=== PATIENT | male | born 1960 | race Caucasian/White ===

== ENCOUNTER → 2016-07-28 | Outpatient (CLI) | payer MEDICARE, OTHER ==
[2016-07-28 08:54] LABS: CH 30.7; CHCM 32.8; HCT 37.5 % (39.0-53.0); HDW 2.68; HGB 12.3 gm/dL (13.0-17.5); MCH 30.9 pg (25.0-35.0); MCHC 32.7 g/dL (31.0-37.0); MCV 94.3 fL (80.0-100.0); Mean Platelet Volume 7.4; RBC 3.98 m/uL (4.30-5.90); RDW 15.3 % (11.5-15.5); WBC 13.6 k/uL (3.8-10.6)
[2016-07-28 09:14] LABS: Amylase 74 U/L (30-110); Anion Gap 9 mmol/L; Blood Urea Nitrogen 26 mg/dL (9-20); Calcium 9.4 mg/dL (8.4-10.2); Carbon Dioxide 25 mmol/L (22-30); Chloride 110 mmol/L (98-107); Glucose 97 mg/dL (74-99); Non-African American GFR(MDRD) >60 (>60 ml/min/1.73 sqM); Potassium 4.7 mmol/L (3.5-5.1); Sodium 144 mmol/L (137-145)
[2016-07-28 13:08] LABS: Hemoglobin A1C 5.6 % (4.2-6.1)
== END ==
LOC: LABWHC1 08:19
PROVIDERS: ATTEND Physical Medicine & Rehabilitation
DX: E10.9 Type 1 diabetes mellitus without complications (principal); Z51.81 Encounter for therapeutic drug level monitoring; Z94.0 Kidney transplant status; Z94.83 Pancreas transplant status; Z79.899 Other long term (current) drug therapy; Z48.298 Encounter for aftercare following other organ transplant
CPT/HCPCS: 36415; 80048; 80197; 82150; 83036; 83690; 85027

== ENCOUNTER → 2016-09-21 | Outpatient (CLI) | payer MEDICARE, OTHER ==
[2016-09-21 10:26] LABS: Aty Lym Flag Slight; CH 30.9; CHCM 32.2; HCT 40.2 % (39.0-53.0); HDW 2.41; MCH 31.2 pg (25.0-35.0); MCHC 32.3 g/dL (31.0-37.0); MCV 96.5 fL (80.0-100.0); Mean Platelet Volume 6.9; RBC 4.16 m/uL (4.30-5.90); RDW 15.1 % (11.5-15.5); WBC 10.3 k/uL (3.8-10.6); WBC (Perox) 10.57
[2016-09-21 10:43] LABS: Appearance,Urine Clear (Clear); Bilirubin,Urine Negative (Negative); Glucose,Urine (UA) Negative (Negative); Ketones,Urine Negative (Negative); Leukocyte Esterase,Urine Negative (Negative); Nitrite,Urine Negative (Negative); PH, Urine 5.5 (5.0-8.0); Protein,Urine Negative (Negative); Specific Gravity,Urine 1.014 (1.001-1.035); UA Billing (MACRO vs. MICRO) CHEM; Urobilinogen,Urine <2.0 mg/dL (<2.0)
[2016-09-21 11:56] LABS: ALT 26 U/L (21-72); AST 22 U/L (17-59); Alkaline Phosphatase 58 U/L (38-126); Amylase 79 U/L (30-110); Anion Gap 10 mmol/L; Blood Urea Nitrogen 28 mg/dL (9-20); Calcium 9.4 mg/dL (8.4-10.2); Carbon Dioxide 22 mmol/L (22-30); Chloride 110 mmol/L (98-107); Cholesterol 140 mg/dL (<200); GGT 20 U/L (15-73); Glucose 96 mg/dL (74-99); HDL Cholesterol 64 mg/dL (40-60); Iron 129 ug/dL (49-181); Magnesium 2.1 mg/dL (1.6-2.3); Non-African American GFR(MDRD) >60 (>60 ml/min/1.73 sqM); Phosphorous 3.4 mg/dL (2.5-4.5); Potassium 4.6 mmol/L (3.5-5.1); Sodium 142 mmol/L (137-145); Total Bilirubin 0.6 mg/dL (0.2-1.3); Total Protein 6.4 g/dL (6.3-8.2); Triglycerides 106 mg/dL (<150); Uric Acid 7.5 mg/dL (3.5-8.5)
[2016-09-21 12:01] LABS: Hemoglobin A1C 5.5 % (4.2-6.1)
[2016-09-21 12:06] LABS: % Iron Saturation 45.3 % (20-50); Total Iron Binding Capacity 285 ug/dL (261-462)
[2016-09-21 12:28] LABS: Creatinine,Urine Random 150.5 mg/dL
[2016-09-21 13:34] LABS: Add Differential Manual Differential
[2016-09-21 13:37] LABS: Manual Review Performed; Nucleated Red Blood Cells 0 /100 WBC (0-0); Total Cells Counted 100
[2016-10-03 16:05] LABS: Mis test requested (Blood) BKV QUANT BY PCR
== END | disposition home or self-care (01) ==
LOC: LABWHC1 08:03
PROVIDERS: ATTEND Nurse Practitioner Family
DX: E10.22 Type 1 diabetes mellitus with diabetic chronic kidney disease (principal); N18.2 Chronic kidney disease, stage 2 (mild); D64.9 Anemia, unspecified; E55.9 Vitamin D deficiency, unspecified; E21.3 Hyperparathyroidism, unspecified; M10.9 Gout, unspecified; N39.0 Urinary tract infection, site not specified; M81.0 Age-related osteoporosis without current pathological fracture; E78.5 Hyperlipidemia, unspecified; Z94.0 Kidney transplant status; Z13.89 Encounter for screening for other disorder; Z79.899 Other long term (current) drug therapy; Z48.298 Encounter for aftercare following other organ transplant
CPT/HCPCS: 36415; 80053; 80061; 80197; 81003; 82150; 82306; 82570; 82728; 82977; 83036; 83540; 83550; 83690; 83735; 83970; 84100; 84156; 84550; 84681; 85025; 87799

== ENCOUNTER → 2017-02-21 | Outpatient (CLI) | payer MEDICARE, OTHER ==
[2017-02-21 08:33] LABS: Anion Gap 9 mmol/L; Blood Urea Nitrogen 28 mg/dL (9-20); Calcium 9.2 mg/dL (8.4-10.2); Carbon Dioxide 25 mmol/L (22-30); Chloride 109 mmol/L (98-107); Glucose 103 mg/dL (74-99); Non-African American GFR(MDRD) 55 (>60 ml/min/1.73 sqM); Phosphorous 3.7 mg/dL (2.5-4.5); Potassium 5.1 mmol/L (3.5-5.1); Sodium 143 mmol/L (137-145); Uric Acid 7.7 mg/dL (3.5-8.5)
[2017-02-21 08:37] LABS: Appearance,Urine Clear (Clear); Bilirubin,Urine Negative (Negative); Glucose,Urine (UA) Negative (Negative); Ketones,Urine Negative (Negative); Leukocyte Esterase,Urine Negative (Negative); Nitrite,Urine Negative (Negative); PH, Urine 5.5 (5.0-8.0); Protein,Urine Negative (Negative); Specific Gravity,Urine 1.015 (1.001-1.035); UA Billing (MACRO vs. MICRO) CHEM; Urobilinogen,Urine <2.0 mg/dL (<2.0)
[2017-02-21 10:06] LABS: Anisocytosis Slight; Aty Lym Flag Slight; CH 31.9; CHCM 32.3; HDW 2.46; HGB 12.9 gm/dL (13.0-17.5); MCH 29.9 pg (25.0-35.0); MCV 99.8 fL (80.0-100.0); Macrocytosis Slight; Mean Platelet Volume 7.2; RBC 4.31 m/uL (4.30-5.90); RDW 16.1 % (11.5-15.5); WBC 12.3 k/uL (3.8-10.6); WBC (Perox) 11.97
[2017-02-21 10:30] LABS: Add Differential Manual Differential
[2017-02-21 10:31] LABS: Nucleated Red Blood Cells 0 /100 WBC (0-0); Total Cells Counted 100
[2017-02-21 10:32] LABS: Manual Review Performed
[2017-02-21 15:12] LABS: Iron Saturation 18.11 (15.00-50.00)
== END | disposition home or self-care (01) ==
LOC: LABWHC1 07:52
PROVIDERS: ATTEND Nurse Practitioner Family
DX: D64.9 Anemia, unspecified (principal); N18.2 Chronic kidney disease, stage 2 (mild); E55.9 Vitamin D deficiency, unspecified; E21.3 Hyperparathyroidism, unspecified; M10.9 Gout, unspecified; N39.0 Urinary tract infection, site not specified
CPT/HCPCS: 36415; 80048; 80197; 81003; 82306; 82728; 83540; 83550; 83735; 83970; 84100; 84550; 85025

== ENCOUNTER → 2017-03-10 | Outpatient (CLI) | payer MEDICARE, OTHER ==
--- NOTE | 2017-03-10 16:52 | US ---
EXAMINATION TYPE: US renal transplant w dop DATE OF EXAM: 03/10/2017 COMPARISON: NONE CLINICAL HISTORY: N18.2 Chronic kidney disease stage 2. CKD stage 2, kidney transplant 20 years ago EXAM PERFORMED: Grayscale on ely [place] kidneys and Doppler duplex and Grayscale imaging of the transplan geraldine kidney. EXAM MEASUREMENTS: Jackson Right Kidney: 8.3 x 4.3 x 3.2cm Jackson Left Kidney: 8.4 x 4.4 x 3.9cm Transplant Kidney: 12.4 x 5.1 x 5.5cm Location of transplanted kidney: LLQ ANATOMY: Jackson Right Kidney: atrophic, echogenic Jackson Left Kidney: atrophic, echogenic Transplant Kidney: cystic areas seen, largest at lower pole = 4.2 x 3.6 x 4.3cm. Located within LLQ. Venous and arterial flow documented Bladder: not fully distended, wall = 0.7cm Bilateral Jets seen: yes Urinary bladder is sonolucent. IMPRESSION: 1. Transplant kidney appears unremarkable by ultrasound. Simple appearing cysts are present. 2. Jackson kidneys remain present typical findings of cortical atrophy.
== END | disposition home or self-care (01) ==
LOC: RADUSWWP 08:19
PROVIDERS: ATTEND Internal Medicine Nephrology
DX: N28.1 Cyst of kidney, acquired (principal); N26.1 Atrophy of kidney (terminal); N18.2 Chronic kidney disease, stage 2 (mild); Z94.0 Kidney transplant status
CPT/HCPCS: 76776

== ENCOUNTER → 2017-05-29 | Outpatient (CLI) | payer MEDICARE, OTHER ==
[2017-05-29 09:14] LABS: HCT 41.1 % (39.0-53.0); MCH 29.7 pg (25.0-35.0); MCHC 31.6 g/dL (31.0-37.0); Mean Platelet Volume 6.7; Platelet Count 380 k/uL (150-450); RBC 4.37 m/uL (4.30-5.90); WBC 11.5 k/uL (3.8-10.6)
[2017-05-29 09:45] LABS: ALT 21 U/L (21-72); AST 25 U/L (17-59); Albumin 3.9 g/dL (3.5-5.0); Alkaline Phosphatase 68 U/L (38-126); Anion Gap 7 mmol/L; Blood Urea Nitrogen 27 mg/dL (9-20); Calcium 9.7 mg/dL (8.4-10.2); Carbon Dioxide 27 mmol/L (22-30); Chloride 107 mmol/L (98-107); Cholesterol 137 mg/dL (<200); Glucose 100 mg/dL (74-99); HDL Cholesterol 60 mg/dL (40-60); LDL Cholesterol,Calculated 57 mg/dL (0-99); Potassium 5.1 mmol/L (3.5-5.1); Sodium 141 mmol/L (137-145); Total Bilirubin 0.5 mg/dL (0.2-1.3); Total Protein 6.6 g/dL (6.3-8.2); Triglycerides 99 mg/dL (<150)
[2017-05-29 10:14] LABS: PSA Annual Screen 0.29 ng/mL (0.00-4.00)
[2017-05-29 10:48] LABS: Eosinophils # (M) 0.23 k/uL (0-0.7); Monocytes # (M) 0.35 k/uL (0-1.0); Neutrophils # (M) 8.63 k/uL (1.3-7.7); Neutrophils % (M) 75 %; Nucleated Red Blood Cells 0 /100 WBC (0-0); Total Cells Counted 100
[2017-05-29 10:49] LABS: Anisocytosis (M) Present; Poikilocytosis (M) Present
== END | disposition home or self-care (01) ==
LOC: LABWHC1 08:17
PROVIDERS: ATTEND Internal Medicine
DX: I10 Essential (primary) hypertension (principal); E78.5 Hyperlipidemia, unspecified; Z12.5 Encounter for screening for malignant neoplasm of prostate
CPT/HCPCS: 80061; 80053; 85025; 36415; G0103

== ENCOUNTER → 2017-06-20 | Outpatient (CLI) | payer MEDICARE, OTHER ==
[2017-06-20 09:12] LABS: Appearance,Urine Clear (Clear); Bilirubin,Urine Negative (Negative); Blood,Urine Negative (Negative); Color,Urine Yellow; Glucose,Urine (UA) Negative (Negative); Ketones,Urine Negative (Negative); Leukocyte Esterase,Urine Negative (Negative); Nitrite,Urine Negative (Negative); Protein,Urine Negative (Negative); Specific Gravity,Urine 1.014 (1.001-1.035); Urobilinogen,Urine <2.0 mg/dL (<2.0)
[2017-06-20 09:15] LABS: HCT 42.6 % (39.0-53.0); HGB 13.3 gm/dL (13.0-17.5); MCH 29.3 pg (25.0-35.0); MCHC 31.2 g/dL (31.0-37.0); MCV 93.7 fL (80.0-100.0); Mean Platelet Volume 6.9; Platelet Count 376 k/uL (150-450); RBC 4.55 m/uL (4.30-5.90)
[2017-06-20 09:24] LABS: Anion Gap 10 mmol/L; Blood Urea Nitrogen 26 mg/dL (9-20); Calcium 9.4 mg/dL (8.4-10.2); Carbon Dioxide 25 mmol/L (22-30); Chloride 106 mmol/L (98-107); Glucose 94 mg/dL (74-99); Magnesium 1.9 mg/dL (1.6-2.3); Phosphorus 3.9 mg/dL (2.5-4.5); Sodium 141 mmol/L (137-145); Uric Acid 6.5 mg/dL (3.5-8.5)
[2017-06-20 10:51] LABS: Band Neutrophils % 1 %; Eosinophils # (M) 0.52 k/uL (0-0.7); Lymphocytes # (M) 3.64 k/uL (1.0-4.8); Monocytes # (M) 0.65 k/uL (0-1.0); Neutrophils % (M) 62 %; Nucleated Red Blood Cells 0 /100 WBC (0-0); Total Cells Counted 100
[2017-06-20 10:52] LABS: Anisocytosis (M) Present; Poikilocytosis (M) Present
[2017-06-20 17:04] LABS: Iron Saturation 23.43 (15.00-50.00)
[2017-06-20 20:05] LABS: Parathyroid Hormone Intact 71.1 pg/mL (14.0-72.0)
== END | disposition home or self-care (01) ==
LOC: LABWHC1 07:58
PROVIDERS: ATTEND Nurse Practitioner Family
DX: E55.9 Vitamin D deficiency, unspecified (principal); D50.9 Iron deficiency anemia, unspecified; N25.81 Secondary hyperparathyroidism of renal origin; M10.9 Gout, unspecified; N39.0 Urinary tract infection, site not specified; D63.1 Anemia in chronic kidney disease; N18.2 Chronic kidney disease, stage 2 (mild); Z94.0 Kidney transplant status
CPT/HCPCS: 36415; 80048; 80197; 81003; 82306; 82728; 83540; 83550; 83735; 83970; 84100; 84550; 85025

== ENCOUNTER → 2017-07-07 | Outpatient (CLI) | payer MEDICARE, OTHER | END | disposition home or self-care (01) | LOC: LABWHC1 08:09 | PROVIDERS: ATTEND Internal Medicine Nephrology | DX: Z48.816 Encounter for surgical aftercare following surgery on the genitourinary system (principal); Z94.0 Kidney transplant status | CPT/HCPCS: 36415; 80197 ==

== ENCOUNTER → 2017-07-14 | Outpatient (CLI) | payer MEDICARE, OTHER | END | disposition home or self-care (01) | LOC: LABWHC1 08:10 | PROVIDERS: ATTEND Internal Medicine Nephrology | DX: Z48.22 Encounter for aftercare following kidney transplant (principal); Z94.0 Kidney transplant status | CPT/HCPCS: 36415; 80197 ==

== ENCOUNTER → 2017-10-03 | Outpatient (CLI) | payer MEDICARE, OTHER ==
[2017-10-03 08:59] LABS: HCT 39.5 % (39.0-53.0); HGB 12.9 gm/dL (13.0-17.5); MCH 30.6 pg (25.0-35.0); MCHC 32.6 g/dL (31.0-37.0); MCV 93.8 fL (80.0-100.0); Mean Platelet Volume 6.7; Platelet Count 375 k/uL (150-450); RBC 4.21 m/uL (4.30-5.90); WBC 11.2 k/uL (3.8-10.6)
[2017-10-03 09:01] LABS: Appearance,Urine Clear (Clear); Bilirubin,Urine Negative (Negative); Blood,Urine Negative (Negative); Color,Urine Yellow; Glucose,Urine (UA) Negative (Negative); Ketones,Urine Negative (Negative); Leukocyte Esterase,Urine Negative (Negative); Nitrite,Urine Negative (Negative); Protein,Urine Negative (Negative); Specific Gravity,Urine 1.014 (1.001-1.035); Urobilinogen,Urine <2.0 mg/dL (<2.0)
[2017-10-03 09:52] LABS: ALT 25 U/L (21-72); AST 23 U/L (17-59); Albumin 3.9 g/dL (3.5-5.0); Alkaline Phosphatase 58 U/L (38-126); Amylase 81 U/L (30-110); Anion Gap 11 mmol/L; Blood Urea Nitrogen 27 mg/dL (9-20); Calcium 9.4 mg/dL (8.4-10.2); Carbon Dioxide 25 mmol/L (22-30); Chloride 108 mmol/L (98-107); Cholesterol 135 mg/dL (<200); GGT 14 U/L (15-73); Glucose 96 mg/dL (74-99); HDL Cholesterol 58 mg/dL (40-60); LDL Cholesterol,Calculated 60 mg/dL (0-99); Lipase 83 U/L (23-300); Potassium 4.8 mmol/L (3.5-5.1); Sodium 144 mmol/L (137-145); Total Bilirubin 0.5 mg/dL (0.2-1.3); Total Protein 6.2 g/dL (6.3-8.2); Triglycerides 85 mg/dL (<150)
[2017-10-03 10:39] LABS: Eosinophils # (M) 0.34 k/uL (0-0.7); Lymphocytes # (M) 2.02 k/uL (1.0-4.8); Monocytes # (M) 1.01 k/uL (0-1.0); Neutrophils # (M) 7.84 k/uL (1.3-7.7); Neutrophils % (M) 70 %; Nucleated Red Blood Cells 0 /100 WBC (0-0); Total Cells Counted 100
[2017-10-03 10:40] LABS: Anisocytosis (M) Present; Poikilocytosis (M) Present
[2017-10-03 18:20] LABS: Hemoglobin A1C 5.6 % (4.0-6.0)
== END | disposition home or self-care (01) ==
LOC: LABWHC1 08:03
PROVIDERS: ATTEND Physical Medicine & Rehabilitation
DX: E78.5 Hyperlipidemia, unspecified (principal); E10.29 Type 1 diabetes mellitus with other diabetic kidney complication; N18.2 Chronic kidney disease, stage 2 (mild); Z94.0 Kidney transplant status; Z94.83 Pancreas transplant status; Z79.899 Other long term (current) drug therapy; Z48.298 Encounter for aftercare following other organ transplant; Z13.89 Encounter for screening for other disorder; Z51.81 Encounter for therapeutic drug level monitoring
CPT/HCPCS: 36415; 80053; 80061; 80197; 81003; 82150; 82570; 82977; 83036; 83690; 84156; 84681; 85025; 87086; 87799

== ENCOUNTER → 2017-10-19 | Outpatient (CLI) | payer MEDICARE, OTHER ==
[2017-10-19 11:41] LABS: Basophils # (A) 0.1 k/uL (0-0.2); Basophils % (A) 0 %; Eosinophils # (A) 0.2 k/uL (0-0.7); Eosinophils % (A) 1 %; HCT 38.1 % (39.0-53.0); HGB 12.4 gm/dL (13.0-17.5); Lymphocytes # (A) 0.9 k/uL (1.0-4.8); Lymphocytes % (A) 4 %; MCH 29.6 pg (25.0-35.0); MCHC 32.6 g/dL (31.0-37.0); MCV 90.9 fL (80.0-100.0); Mean Platelet Volume 6.8; Monocytes # (A) 1.4 k/uL (0-1.0); Monocytes % (A) 7 %; Neutrophils # (A) 17.8 k/uL (1.3-7.7); Neutrophils % (A) 84 %; Platelet Count 362 k/uL (150-450); RBC 4.19 m/uL (4.30-5.90); RDW 14.9 % (11.5-15.5); WBC 21.2 k/uL (3.8-10.6)
--- NOTE | 2017-10-19 12:11 | XR ---
EXAMINATION TYPE: XR foot complete RT DATE OF EXAM: 10/19/2017 COMPARISON: 09/17/2013 HISTORY: Plantar surface pain TECHNIQUE: Three views are submitted. FINDINGS: The osseous structures are intact. There is no acute fracture or dislocation. There is diffuse art hropathy of the tarsometatarsal junction. Moderate changes involving the first MTP joint. Chronic malcolm earing erosive changes proximal phalanx fifth digit. Previous trauma to the second and third metatars als. Diffuse osteopenia and subcutaneous edema. Pes planus deformity noted. Appears to be marked dist ortion the ankle joint which is only partially included. IMPRESSION: 1. Erosive change involving proximal phalanx fifth digit correlate for osteomyelitis. 2. Extensive arthropathy as discussed above. Consider Charcot joint.
== END | disposition home or self-care (01) ==
LOC: LABWHC1 10:55
PROVIDERS: ATTEND Internal Medicine
DX: M19.071 Primary osteoarthritis, right ankle and foot (principal); R93.7 Abnormal findings on diagnostic imaging of other parts of musculoskeletal system
CPT/HCPCS: 36415; 85025

== ENCOUNTER 2017-10-20 13:39 | Inpatient (IN) | payer MEDICARE, OTHER ==
[2017-10-20] MEDS ORDERED: ACETAMINOPHEN TAB 325 MG TAB PO STA (14:13)
[2017-10-20] MEDS: SODIUM CHLORIDE 0.9% 500 ML IV SCH (14:43)
[2017-10-20 15:12] LABS: Albumin 3.7 g/dL (3.5-5.0); Calcium 9.1 mg/dL (8.4-10.2); Potassium 4.7 mmol/L (3.5-5.1); Total Bilirubin 0.8 mg/dL (0.2-1.3); Total Protein 6.2 g/dL (6.3-8.2)
[2017-10-20 15:17] LABS: INR 1.1 (<1.2); Partial Thromboplastin Time 26.5 sec (22.0-30.0); Prothrombin Time 10.4 sec (9.0-12.0)
[2017-10-20 15:18] LABS: HCT 37.9 % (39.0-53.0); HGB 12.7 gm/dL (13.0-17.5); MCH 30.8 pg (25.0-35.0); MCHC 33.6 g/dL (31.0-37.0); MCV 91.7 fL (80.0-100.0); Mean Platelet Volume 6.5; Platelet Count 332 k/uL (150-450); RBC 4.14 m/uL (4.30-5.90); WBC 17.2 k/uL (3.8-10.6)
--- NOTE | 2017-10-20 15:38 | XR ---
EXAMINATION TYPE: XR chest 2V DATE OF EXAM: 10/20/2017 COMPARISON: Chest x-ray December 02, 2014 HISTORY: Fever, history of skin cancer. TECHNIQUE: Frontal and lateral views of the chest are obtained. FINDINGS: There is stable left internal jugular Mediport catheter. There is chronic brachial change without suspicious new focal air space opacity, pleural effusion, or pneumothorax seen. The cardiac silhouette size is upper limits of normal. The osseous structures are demineralized. Old fracture p osterior right fifth rib is present. IMPRESSION: Chronic changes without acute pulmonary process.
[2017-10-20 15:43] LABS: Monocytes # (M) 1.38 k/uL (0-1.0); Neutrophils # (M) 14.62 k/uL (1.3-7.7); Neutrophils % (M) 85 %; Nucleated Red Blood Cells 0 /100 WBC (0-0); Polychromasia Present; Total Cells Counted 100
[2017-10-20 16:21] LABS: Appearance,Urine Clear (Clear); Bacteria,Urine Rare /hpf; Bilirubin,Urine Negative (Negative); Blood,Urine Small (Negative); Color,Urine Yellow; Glucose,Urine (UA) Negative (Negative); Hyaline Casts,Urine 1 /lpf (0-2); Ketones,Urine 2+ (Negative); Leukocyte Esterase,Urine Negative (Negative); Mucus,Urine Occasional /hpf; Nitrite,Urine Negative (Negative); Protein,Urine 2+ (Negative); RBC,Urine 1 /hpf (0-5); Specific Gravity,Urine 1.017 (1.001-1.035); Squamous Epithelial Cell,Urine <1 /hpf (0-4); Urobilinogen,Urine <2.0 mg/dL (<2.0); WBC,Urine 1 /hpf (0-5)
--- NOTE | 2017-10-20 16:59 | CT ---
EXAMINATION TYPE: CT abdomen pelvis w con DATE OF EXAM: 10/20/2017 COMPARISON: 12/02/2014 HISTORY: Nausea, vomiting and generalized abdominal pain. CT DLP: 1453 mGycm Automated exposure control for dose reduction was used. TECHNIQUE: Helical acquisition of images was performed from the lung bases through the pelvis. CONTRAST: Performed without Oral Contrast and with IV Contrast, patient injected with 100 mL of Isovue 300. FINDINGS: There is patchy atelectasis at the posterior lung bases. There is no pleural effusion. Heart size is normal. Liver spleen appear normal. There is no pancreatic mass. There is significant pancreatic atrophy. Gal lbladder appears normal. Bile ducts are not dilated. The [place] kidneys show significant atrophy. There is a left side transplant kidney. There is a 5 cm cortical cyst on the lower pole of the transp lant kidney. There is a 4.5 cm cortical cyst lateral left transplant kidney. There is no hydronephros is. I see no intestinal wall thickening. There are no dilated loops. There is no evidence of a bowel obstruction. There is umbilical hernia that contains fat. There is left side anterior abdominal wall ventral hernia containing omental fat. There is no ascites. There is no sign of free air. The lumbar spine appears intact. I see no bony destructive process. There is no retroperitoneal adenopathy. Abdo angelica aorta is atheromatous. There is mild urinary bladder wall thickening. IMPRESSION: ATHEROSCLEROTIC VASCULAR DISEASE. LEFT-SIDED RENAL TRANSPLANT KIDNEY WITH CORTICAL CYSTS. NO HYDRONEP HROSIS. SMALL UMBILICAL HERNIA. LEFT SIDE ANTERIOR ABDOMINAL WALL VENTRAL HERNIA CONTAINS OMENTAL FAT . PATCHY ATELECTASIS AT THE LUNG BASES. MILD BLADDER WALL THICKENING COULD RELATE TO MILD NONSPECIFIC CYSTITIS. RENAL CYSTS ARE INCREASED COM PARED TO OLD EXAM. BLADDER WALL THICKENING IS INCREASED COMPARED TO OLD EXAM.
[2017-10-20] MEDS ORDERED: LEVOFLOXACIN 750 MG TAB PO STA (17:57)
[2017-10-20] MEDS ORDERED: MORPHINE SULFATE 2 MG/ML SYRINGE IV PRN (18:30)
[2017-10-20] MEDS ORDERED: traMADol 50 MG TAB PO PRN (18:30)
[2017-10-20] MEDS ORDERED: NALOXONE 0.4 MG/ML 1 ML VIAL IV PRN (18:30)
[2017-10-20] MEDS ORDERED: ONDANSETRON 4 MG/2 ML VIAL IVP PRN (18:30)
--- NOTE | 2017-10-20 18:42 | ED ---
General Adult HPI - General Chief complaint: Fever Stated complaint: High white count-sent by Dr Tejeda Time Seen by Provider: 10/20/17 14:07 Source: patient Mode of arrival: wheelchair Limitations: no limitations - History of Present Illness Initial comments: 57-year-old male with past medical history of kidney and pancreas transplant in 1997 in [place], [place] presented for evaluation of fever with generalized abdominal pain. He states that T-max prior to arrival was 11.6 that he's been having these symptoms since yesterday. He was seen by his primary care physician who started him on antibiotics however he continues to have the symptoms. At that time blood was drawn and was called today and told that he had a leukocytosis and needed to come to the ED for further treatment and evaluation. He denies any sick contacts at this time, no rashes, or changes to his feet which he states that previously been infected due to his Charcot deformities. He denies cough, rashes, shortness of breath, chest pain. Patient takes tacrolimus and cellcept for immunosupression. - Related Data Home Medications Medication Instructions Recorded Confirmed Aspirin 81 mg PO DAILY 09/27/13 10/20/17 Bimatoprost [Lumigan .01% Ophth 1 drop BOTH EYES HS 09/27/13 10/20/17 Soln] Brimonidine Tartrate/Timolol 1 drop BOTH EYES BID 09/27/13 10/20/17 [Combigan 0.2%/0.5% Ophth Soln] Enalapril [Vasotec] 20 mg PO BID 09/27/13 10/20/17 Lovastatin [Mevacor] 20 mg PO HS 09/27/13 10/20/17 Multivitamin [Men's Multi-Vitamin] 1 tab PO DAILY 09/27/13 10/20/17 Mycophenolate Mofetil [Cellcept] 500 mg PO BID 09/27/13 10/20/17 NIFEdipine XL [Procardia XL] 90 mg PO DAILY 09/27/13 10/20/17 predniSONE 5 mg PO DAILY 09/27/13 10/20/17 Tacrolimus [Prograf] 1 mg PO BID 01/03/14 10/20/17 Cholecalciferol [Vitamin D3] 1,000 unit PO DAILY 12/02/14 10/20/17 Dorzolamide 2% [Trusopt 2%] 1 drops LEFT EYE BID 12/02/14 10/20/17 Propranolol HCl [Inderal Xl] 80 mg PO DAILY 12/02/14 10/20/17 Clindamycin HCl [Cleocin] 300 mg PO TID 10/20/17 10/20/17 Folic Acid 1 mg PO DAILY 10/20/17 10/20/17 Ondansetron HCl [Zofran] 4 mg PO TID PRN 10/20/17 10/20/17 Allergies Allergy/AdvReac Type Severity Reaction Status Date / Time latex AdvReac Rash/Hives Verified 10/20/17 14:52 Penicillins AdvReac Rash/Hives Verified 10/20/17 14:52 Review of Systems ROS Statement: Those systems with pertinent positive or pertinent negative responses have been documented in the HPI. ROS Other: All systems not noted in ROS Statement are negative. Constitutional: Reports: fever, chills. Denies: weakness Eyes: Denies: eye pain, vision change ENT: Denies: ear pain, throat pain Respiratory: Denies: cough, dyspnea Cardiovascular: Denies: chest pain, palpitations Endocrine: Denies: fatigue, polydipsia, polyuria Gastrointestinal: Reports: abdominal pain, nausea. Denies: vomiting, diarrhea, constipation Genitourinary: Denies: urgency, dysuria Musculoskeletal: Denies: back pain, arthralgia, myalgia Skin: Denies: rash, lesions Neurological: Denies: headache, weakness Psychiatric: Denies: anxiety, depression Hematological/Lymphatic: Denies: easy bleeding, easy bruising Past Medical History Past Medical History: Cancer, Skin Disorder Additional Past Medical History / Comment(s): RT FOOT OPEN AREA, PVD, WAS TX FOR DIABETES UP UNTIL HIS TRANSPLANT(). 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 Past Anesthesia/Blood Transfusion Reactions: No Reported Reaction Past Psychological History: Anxiety Smoking Status: Former smoker Past Alcohol Use History: None Reported Past Drug Use History: None Reported - Past Family History Father Additional Family Medical History / Comment(s): Pt states father of motorcycle accident 1970 Mother Family Medical History: No Reported History General Exam Limitations: no limitations General appearance: alert, in no apparent distress Head exam: Present: atraumatic, normocephalic Eye exam: Present: normal appearance, PERRL, EOMI ENT exam: Present: normal exam, normal oropharynx Neck exam: Present: normal inspection, tenderness Respiratory exam: Present: normal lung sounds bilaterally. Absent: respiratory distress Cardiovascular Exam: Present: regular rate, normal rhythm GI/Abdominal exam: Present: soft, tenderness. Absent: distended, guarding, rebound, rigid Rectal exam: Present: deferred Extremities exam: Present: full ROM, other (charcot foot bilaterally) Back exam: Present: normal inspection, full ROM Neurological exam: Present: alert, oriented X3 Psychiatric exam: Present: normal affect, normal mood Skin exam: Present: warm, dry, intact Course Vital Signs 10/20/17 10/20/17 10/20/17 14:00 14:51 15:59 Temperature 100.7 F H 101 F H Pulse Rate 88 86 68 Respiratory 20 16 16 Rate Blood Pressure 131/73 140/66 126/80 O2 Sat by Pulse 98 97 96 Oximetry 10/20/17 18:21 Temperature 99.0 F Pulse Rate 73 Respiratory 16 Rate Blood Pressure 131/66 O2 Sat by Pulse 95 Oximetry EKG Findings - EKG Comments: EKG Findings:: M sinus rhythm with a ventricular rate of 86. Medical Decision Making - Medical Decision Making 57-year-old male with past medical history as noted above presented for evaluation of fever with generalized abdominal pain. On physical examination he appears to be in no apparent distress abdomen is soft and nontender T and without signs of guarding, rigidity, or rebound however it is tender throughout. His feet have Charcot deformities but no acute process. The right foot does appear to be more swollen along the medial midfoot aspect and appears to be more erythematous than the left however the patient states that this is chronic. Remainder physical exam is benign. Labs revealed a leukocytosis of 17.2, hyponatremia of 133, urine shows 2+ ketones and small amount of blood with rare bacteria however CT abdomen and pelvis shows bladder wall thickening that is increased compared to old exam. Chest x-ray shows no pneumonia. In this context the patient will be started on antibiotic coverage for urinary tract infection and admitted. Urine culture was only sent as were blood cultures. Discussed with accepting physician Dr. Guy who requested consult with ID. Admission order placed and bed request submitted. - Lab Data Result diagrams: 10/20/17 14:47 10/20/17 14:47 Lab Results 10/20/17 10/20/17 10/20/17 Range/Units 14:47 14:47 14:47 WBC 17.2 H (3.8-10.6) k/uL RBC 4.14 L (4.30-5.90) m/uL Hgb 12.7 L (13.0-17.5) gm/dL Hct 37.9 L (39.0-53.0) % MCV 91.7 (80.0-100.0) fL MCH 30.8 (25.0-35.0) pg MCHC 33.6 (31.0-37.0) g/dL RDW 15.0 (11.5-15.5) % Plt Count 332 (150-450) k/uL Neutrophils % (Manual) 85 % Lymphocytes % (Manual) 7 % Monocytes % (Manual) 8 % Neutrophils # (Manual) 14.62 H (1.3-7.7) k/uL Lymphocytes # (Manual) 1.20 (1.0-4.8) k/uL Monocytes # (Manual) 1.38 H (0-1.0) k/uL Nucleated RBCs 0 (0-0) /100 WBC Polychromasia Present PT (9.0-12.0) sec INR (<1.2) APTT (22.0-30.0) sec Sodium 133 L (137-145) mmol/L Potassium 4.7 (3.5-5.1) mmol/L Chloride 103 (98-107) mmol/L Carbon Dioxide 18 L (22-30) mmol/L Anion Gap 12 mmol/L BUN 19 (9-20) mg/dL Creatinine 1.09 (0.66-1.25) mg/dL Est GFR (CKD-EPI)AfAm 88 (>60 ml/min/1.73 sqM) Est GFR (CKD-EPI)NonAf 76 (>60 ml/min/1.73 sqM) Glucose 124 H (74-99) mg/dL Plasma Lactic Acid Lion 0.9 (0.7-2.0) mmol/L Calcium 9.1 (8.4-10.2) mg/dL Total Bilirubin 0.8 (0.2-1.3) mg/dL AST 24 (17-59) U/L ALT 25 (21-72) U/L Alkaline Phosphatase 66 (38-126) U/L Troponin I (0.000-0.034) ng/mL Total Protein 6.2 L (6.3-8.2) g/dL Albumin 3.7 (3.5-5.0) g/dL Cortisol 18 ug/dL Urine Color Urine Appearance (Clear) Urine pH (5.0-8.0) Ur Specific [place] (1.001-1.035) Urine Protein (Negative) Urine Glucose (UA) (Negative) Urine Ketones (Negative) Urine Blood (Negative) Urine Nitrite (Negative) Urine Bilirubin (Negative) Urine Urobilinogen (<2.0) mg/dL Ur Leukocyte Esterase (Negative) Urine RBC (0-5) /hpf Urine WBC (0-5) /hpf Ur Squamous Epith Cells (0-4) /hpf Urine Bacteria (None) /hpf Hyaline Casts (0-2) /lpf Urine Mucus (None) /hpf 10/20/17 10/20/17 10/20/17 Range/Units 14:47 14:47 15:51 WBC (3.8-10.6) k/uL RBC (4.30-5.90) m/uL Hgb (13.0-17.5) gm/dL Hct (39.0-53.0) % MCV (80.0-100.0) fL MCH (25.0-35.0) pg MCHC (31.0-37.0) g/dL RDW (11.5-15.5) % Plt Count (150-450) k/uL Neutrophils % (Manual) % Lymphocytes % (Manual) % Monocytes % (Manual) % Neutrophils # (Manual) (1.3-7.7) k/uL Lymphocytes # (Manual) (1.0-4.8) k/uL Monocytes # (Manual) (0-1.0) k/uL Nucleated RBCs (0-0) /100 WBC Polychromasia PT 10.4 (9.0-12.0) sec INR 1.1 (<1.2) APTT 26.5 (22.0-30.0) sec Sodium (137-145) mmol/L Potassium (3.5-5.1) mmol/L Chloride (98-107) mmol/L Carbon Dioxide (22-30) mmol/L Anion Gap mmol/L BUN (9-20) mg/dL Creatinine (0.66-1.25) mg/dL Est GFR (CKD-EPI)AfAm (>60 ml/min/1.73 sqM) Est GFR (CKD-EPI)NonAf (>60 ml/min/1.73 sqM) Glucose (74-99) mg/dL Plasma Lactic Acid Lion (0.7-2.0) mmol/L Calcium (8.4-10.2) mg/dL Total Bilirubin (0.2-1.3) mg/dL AST (17-59) U/L ALT (21-72) U/L Alkaline Phosphatase (38-126) U/L Troponin I 0.017 (0.000-0.034) ng/mL Total Protein (6.3-8.2) g/dL Albumin (3.5-5.0) g/dL Cortisol ug/dL Urine Color Yellow Urine Appearance Clear (Clear) Urine pH 6.0 (5.0-8.0) Ur Specific [place] 1.017 (1.001-1.035) Urine Protein 2+ H (Negative) Urine Glucose (UA) Negative (Negative) Urine Ketones 2+ H (Negative) Urine Blood Small H (Negative) Urine Nitrite Negative (Negative) Urine Bilirubin Negative (Negative) Urine Urobilinogen <2.0 (<2.0) mg/dL Ur Leukocyte Esterase Negative (Negative) Urine RBC 1 (0-5) /hpf Urine WBC 1 (0-5) /hpf Ur Squamous Epith Cells <1 (0-4) /hpf Urine Bacteria Rare H (None) /hpf Hyaline Casts 1 (0-2) /lpf Urine Mucus Occasional H (None) /hpf Disposition Clinical Impression: Intractable abdominal pain, UTI (urinary tract infection), Fever, History of simultaneous kidney and pancreas transplant Disposition: ADMITTED IP TO THIS [facility] Decision to Admit Reason: Admit from EC Decision Time: 18:41
[2017-10-20] MEDS ORDERED: VANCOMYCIN IV PER PHARMACY 1 EACH MISC MISCELLANE PRN (18:52)
--- NOTE | 2017-10-20 18:52 | P.HPIM ---
History of Present Illness H&P Date: 10/20/17 Chief Complaint: Abdominal pain and fever The patient is a 57-year-old male with a past medical history of essential hypertension, dyslipidemia, renal and pancreas transplantation Since 1997 currently on immunosuppressive therapy with prednisone, Prograf and CellCept who presents to the ER via private vehicle after being referred here by his PCP. Apparently the patient had presented to his PCP yesterday with complaints of subjective fevers chills, mild nonradiating achy mid abdominal pain with associated nausea, gagging, and retching along with subjective fevers chills or night sweats. The patient also reports a cough during the last 2 days denies any shortness of air. Apparently his PCP sent him for a CBC and x- ray of his foot due to history of osteomyelitis and chronic ulcers, the patient was apparently given a shot of antibiotics and started on clindamycin. He was then referred to the ER after his PCP noticed the patient's leukocytosis. The patient denies any diarrhea or constipation, denies any dysuria flank pain or increased frequency. In the ER the patient had a conference of workup he was noted to be febrile with a temperature of 101, with labs notable for leukocytosis of 17.1, CT abdomen and pelvis showed only mild bladder wall thickening suggestive of an mild nonspecific cystitis, he was started on empiric antibiotics with oral Levaquin and recommended for admission for sepsis. Review of the patient's right foot x-ray shows erosive changes involving the proximal phalanx of the fifth digit correlate for osteomyelitis, also noted extensive arthropathy suggestive of Charcot joint Review of Systems All other 12 point review of systems negative except per HPI Past Medical History Past Medical History: Cancer, Skin Disorder Additional Past Medical History / Comment(s): RT FOOT OPEN AREA, PVD, WAS TX FOR DIABETES UP UNTIL HIS TRANSPLANT(). 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 Past Anesthesia/Blood Transfusion Reactions: No Reported Reaction Past Psychological History: Anxiety Smoking Status: Former smoker Past Alcohol Use History: None Reported Past Drug Use History: None Reported - Past Family History Father Additional Family Medical History / Comment(s): Pt states father of motorcycle accident 1970 Mother Family Medical History: No Reported History Medications and Allergies Home Medications Medication Instructions Recorded Confirmed Type Aspirin 81 mg PO DAILY 09/27/13 10/20/17 History Bimatoprost [Lumigan .01% Ophth 1 drop BOTH EYES HS 09/27/13 10/20/17 History Soln] Brimonidine Tartrate/Timolol 1 drop BOTH EYES BID 09/27/13 10/20/17 History [Combigan 0.2%/0.5% Ophth Soln] Enalapril [Vasotec] 20 mg PO BID 09/27/13 10/20/17 History Lovastatin [Mevacor] 20 mg PO HS 09/27/13 10/20/17 History Multivitamin [Men's Multi-Vitamin] 1 tab PO DAILY 09/27/13 10/20/17 History Mycophenolate Mofetil [Cellcept] 500 mg PO BID 09/27/13 10/20/17 History NIFEdipine XL [Procardia XL] 90 mg PO DAILY 09/27/13 10/20/17 History predniSONE 5 mg PO DAILY 09/27/13 10/20/17 History Tacrolimus [Prograf] 1 mg PO BID 01/03/14 10/20/17 History Cholecalciferol [Vitamin D3] 1,000 unit PO DAILY 12/02/14 10/20/17 History Dorzolamide 2% [Trusopt 2%] 1 drops LEFT EYE BID 12/02/14 10/20/17 History Propranolol HCl [Inderal Xl] 80 mg PO DAILY 12/02/14 10/20/17 History Clindamycin HCl [Cleocin] 300 mg PO TID 10/20/17 10/20/17 History Folic Acid 1 mg PO DAILY 10/20/17 10/20/17 History Ondansetron HCl [Zofran] 4 mg PO TID PRN 10/20/17 10/20/17 History Allergies Allergy/AdvReac Type Severity Reaction Status Date / Time latex AdvReac Rash/Hives Verified 10/20/17 14:52 Penicillins AdvReac Rash/Hives Verified 10/20/17 14:52 Physical Exam Vitals: Vital Signs Temp Pulse Resp BP Pulse Ox 10/20/17 18:21 99.0 F 73 16 131/66 95 10/20/17 15:59 101 F H 68 16 126/80 96 10/20/17 14:51 86 16 140/66 97 10/20/17 14:00 100.7 F H 88 20 131/73 98 Intake and Output 10/20/17 10/20/17 10/20/17 06:59 14:59 22:59 Other: Weight 70.307 kg Constitutional: No acute distress, conversant, pleasant Eyes: Anicteric sclerae, moist conjunctiva, no lid-lag, PERRLA ENMT: NC/AT,Oropharynx clear, no erythema, exudates Neck:Supple, FROM, no masses, or JVD, No carotid bruits; No thyromegaly Lungs: Clear to auscultation, Clear to percussion, Normal respiratory effort, no accessory muscle use Cardiovascular: Heart regular in rate and rhythm, No murmurs, gallops, or rubs no peripheral edema Abdominal: Soft Nontender, nom distended, no guarding, no rebound or rigidity, Normoactive bowel sounds No hepatomegaly, No splenomegaly, No palpable mass No abdominal wall hernia noted Skin: Normal temperature, tone, texture, turgor, No induration No subcutaneous nodules, No rash, lesions, No ulcers Extremities:No digital cyanosis No clubbing, Pedal pulses intact and symmetrical Radial pulses intact and symmetrical Normal gait and station, No calf tenderness, deformed Charcot leg joint of the right ankle and foot Psychiatric: Alert and oriented to person, place and time, Appropriate affect Intact judgement Neuro: Muscles Strength 5/5 in all 4 extremities, Sensation to light touch grossly present throughout, Cranial nerves II-XII grossly intact. No focal sensory deficits Results CBC & Chem 7: 10/21/17 07:59 10/21/17 07:59 Labs: Abnormal Lab Results - Last 24 Hours (Table) 10/20/17 10/20/17 10/20/17 Range/Units 14:47 14:47 15:51 WBC 17.2 H (3.8-10.6) k/uL RBC 4.14 L (4.30-5.90) m/uL Hgb 12.7 L (13.0-17.5) gm/dL Hct 37.9 L (39.0-53.0) % Neutrophils # (Manual) 14.62 H (1.3-7.7) k/uL Monocytes # (Manual) 1.38 H (0-1.0) k/uL Sodium 133 L (137-145) mmol/L Carbon Dioxide 18 L (22-30) mmol/L Glucose 124 H (74-99) mg/dL Total Protein 6.2 L (6.3-8.2) g/dL Urine Protein 2+ H (Negative) Urine Ketones 2+ H (Negative) Urine Blood Small H (Negative) Urine Bacteria Rare H (None) /hpf Urine Mucus Occasional H (None) /hpf Assessment and Plan Assessment: Chronic medical conditions Hyperlipidemia Status post renal transplant Status post pancreas transplant (1) Sepsis Current Visit: Yes Status: Acute Code(s): A41.9 - SEPSIS, UNSPECIFIED ORGANISM SNOMED Code(s): 40063115 (2) Immunosuppressed status Current Visit: Yes Status: Acute Code(s): D89.9 - DISORDER INVOLVING THE IMMUNE MECHANISM, UNSPECIFIED SNOMED Code(s): 92406624 (3) Essential hypertension Current Visit: Yes Status: Acute Code(s): I10 - ESSENTIAL (PRIMARY) HYPERTENSION SNOMED Code(s): 97674122 (4) Osteomyelitis Current Visit: Yes Status: Acute Code(s): M86.9 - OSTEOMYELITIS, UNSPECIFIED SNOMED Code(s): 71484081 Plan: The patient is a 57-year-old male admitted anticipate a greater than 2 midnight stay with sepsis likely secondary to right fifth digit osteomyelitis, patient is hemodynamically stable lactate level is normal, we'll initiate patient on empiric IV antibiotics with vancomycin and Zosyn and consult infectious disease Dr. Guerrero, will order MRI of the right foot and treat supportively with anti- emetics, Tylenol, and IV fluids. We'll also consult general surgery for further recommendations as a patient may need debridement or more aggressive therapy. Resume his home antihypertensive regimen, place him on DVT prophylaxis with Lovenox and continue to monitor his clinical course
[2017-10-20] MEDS ORDERED: VANCOMYCIN 1,500 MG in SODIUM CHLORIDE 0.9% 250 ML IVPB STA (19:11)
[2017-10-20] MEDS: SODIUM CHLORIDE 0.9% 1,000 ML IV SCH (19:40)
[2017-10-20] MEDS ORDERED: MYCOPHENOLATE MOFETIL 500 MG TAB PO SCH (21:00)
[2017-10-20] MEDS ORDERED: TACROLIMUS 1 MG CAP PO SCH (21:00)
[2017-10-20] MEDS ORDERED: LISINOPRIL 20 MG TAB PO SCH (21:00)
[2017-10-20] MEDS: ATORVASTATIN 10 MG TAB PO SCH (21:29)
[2017-10-20] MEDS: BRIMONIDINE TARTRATE 0.2% DROPS 5 ML BTL BOTH EYES SCH (21:30)
[2017-10-20] MEDS: DORZOLAMIDE HCL 2% DROPS 10 ML BTL LEFT EYE SCH (21:30)
[2017-10-20] MEDS: TIMOLOL 0.5% OPHTH DROPS 5 ML BTL BOTH EYES SCH (21:31)
[2017-10-20] MEDS: LATANOPROST 0.005% OPHTH DROPS 2.5 ML BTL BOTH EYES SCH (21:31)
[2017-10-20] MEDS: PIPERACILLIN-TAZOBACTAM 3.375 GM in DEXTROSE/WATER 1 50ML.BAG IVPB SCH (23:53)
[2017-10-21] MEDS: VANCOMYCIN 1,250 MG in SODIUM CHLORIDE 0.9% 250 ML IVPB SCH ×2 (06:20→18:53)
[2017-10-21] MEDS ORDERED: ASPIRIN 81 MG PO SCH ×2 (08:00→09:00)
[2017-10-21] MEDS: NIFEdipine XL 90 MG TAB.ER.24 PO SCH (08:06)
[2017-10-21] MEDS: PROPRANOLOL LA 80 MG CAP.SA.24H PO SCH (08:06)
[2017-10-21] MEDS: DORZOLAMIDE HCL 2% DROPS 10 ML BTL LEFT EYE SCH ×2 (08:07→19:45)
[2017-10-21] MEDS: TIMOLOL 0.5% OPHTH DROPS 5 ML BTL BOTH EYES SCH ×2 (08:07→19:45)
[2017-10-21] MEDS: CHOLECALCIFEROL 1,000 UNIT TAB PO SCH (08:07)
[2017-10-21] MEDS: ASPIRIN 81 MG PO SCH (08:08)
[2017-10-21] MEDS: TACROLIMUS 1 MG CAP PO SCH ×2 (08:08→19:44)
[2017-10-21] MEDS: MYCOPHENOLATE MOFETIL 500 MG TAB PO SCH ×2 (08:08→19:44)
[2017-10-21] MEDS: ENOXAPARIN 40 MG/0.4 ML SYRINGE SQ SCH (08:09)
[2017-10-21] MEDS: predniSONE 5 MG TAB PO SCH (08:09)
[2017-10-21] MEDS: LISINOPRIL 20 MG TAB PO SCH ×2 (08:09→19:43)
[2017-10-21] MEDS: FOLIC ACID 1 MG TAB PO SCH (08:10)
[2017-10-21 08:12] LABS: Basophils % (A) 0 %; Eosinophils # (A) 0.1 k/uL (0-0.7); Eosinophils % (A) 0 %; HCT 34.5 % (39.0-53.0); HGB 11.2 gm/dL (13.0-17.5); Lymphocytes # (A) 0.7 k/uL (1.0-4.8); Lymphocytes % (A) 6 %; MCH 29.7 pg (25.0-35.0); MCHC 32.3 g/dL (31.0-37.0); Mean Platelet Volume 6.6; Monocytes # (A) 0.5 k/uL (0-1.0); Monocytes % (A) 4 %; Neutrophils # (A) 9.6 k/uL (1.3-7.7); Neutrophils % (A) 85 %; Platelet Count 278 k/uL (150-450); RBC 3.75 m/uL (4.30-5.90); RDW 14.7 % (11.5-15.5); WBC 11.2 k/uL (3.8-10.6)
[2017-10-21] MEDS: PIPERACILLIN-TAZOBACTAM 3.375 GM in DEXTROSE/WATER 1 50ML.BAG IVPB SCH ×3 (08:29→23:58)
[2017-10-21 08:30] LABS: ALT 21 U/L (21-72); AST 22 U/L (17-59); Albumin 2.8 g/dL (3.5-5.0); Alkaline Phosphatase 50 U/L (38-126); Amylase 40 U/L (30-110); Anion Gap 10 mmol/L; Blood Urea Nitrogen 18 mg/dL (9-20); Calcium 8.1 mg/dL (8.4-10.2); Carbon Dioxide 17 mmol/L (22-30); Chloride 110 mmol/L (98-107); Glucose 88 mg/dL (74-99); Lipase 30 U/L (23-300); Magnesium 1.8 mg/dL (1.6-2.3); Phosphorus 2.8 mg/dL (2.5-4.5); Potassium 4.4 mmol/L (3.5-5.1); Sodium 137 mmol/L (137-145); Total Bilirubin 0.3 mg/dL (0.2-1.3); Total Protein 5.1 g/dL (6.3-8.2)
[2017-10-21] MEDS: BRIMONIDINE TARTRATE 0.2% DROPS 5 ML BTL BOTH EYES SCH ×2 (08:30→19:45)
[2017-10-21] MEDS ORDERED: FOLIC ACID 1 MG TAB PO SCH (09:00)
--- NOTE | 2017-10-21 09:58 | P.PN ---
Subjective Progress Note Date: 10/21/17 Patient complaining of loss of appetite and abdominal pain, generalized, afebrile overnight. No acute events overnight Objective - Vital Signs Vital signs: Vital Signs Temp 98.9 F 10/21/17 05:52 Pulse 75 10/21/17 05:52 Resp 18 10/21/17 05:52 BP 118/67 10/21/17 05:52 Pulse Ox 97 10/21/17 05:52 Intake & Output 10/20/17 10/21/17 10/21/17 18:59 06:59 18:59 Intake Total 1400 Output Total 400 Balance 1000 Weight 70.307 kg Intake: Intake, IV Titration 1400 Amount Piperacillin-Tazobactam 3 50 .375 gm In Dextrose/Water 1 50ml.bag @ 12.5 mls/hr IVPB Q8HR [facility] Rx#: [id number] Sodium Chloride 0.9% 1, 600 000 ml @ 75 mls/hr IV . [id number] [facility] Rx#:[id number] Sodium Chloride 0.9% 500 500 ml @ 1000 mls/hr IV Q35M [facility] Rx#:[id number] Vancomycin 1,250 mg In 250 Sodium Chloride 0.9% 250 ml @ 125 mls/hr IVPB Q12HR@0600,1800 [facility] Rx#: [id number] Output: Urine 400 - Exam Constitutional: No acute distress, conversant, pleasant Eyes: Anicteric sclerae, moist conjunctiva, no lid-lag, PERRLA ENMT: NC/AT,Oropharynx clear, no erythema, exudates Neck:Supple, FROM, no masses, or JVD, No carotid bruits; No thyromegaly Lungs: Clear to auscultation, Clear to percussion, Normal respiratory effort, no accessory muscle use Cardiovascular: Heart regular in rate and rhythm, No murmurs, gallops, or rubs no peripheral edema Abdominal: Soft Nontender, nom distended, no guarding, no rebound or rigidity, Normoactive bowel sounds No hepatomegaly, No splenomegaly, No palpable mass No abdominal wall hernia noted Skin: Normal temperature, tone, texture, turgor, No induration No subcutaneous nodules, No rash, lesions, No ulcers Extremities:No digital cyanosis No clubbing, Pedal pulses intact and symmetrical Radial pulses intact and symmetrical Normal gait and station, No calf tenderness Psychiatric: Alert and oriented to person, place and time, Appropriate affect Intact judgement Neuro: Muscles Strength 5/5 in all 4 extremities, Sensation to light touch grossly present throughout, Cranial nerves II-XII grossly intact. No focal sensory deficits - Labs CBC & Chem 7: 18 07:59 10/21/17 07:59 Labs: Abnormal Lab Results - Last 24 Hours (Table) 10/20/17 10/20/17 10/20/17 Range/Units 14:47 14:47 15:51 WBC 17.2 H (3.8-10.6) k/uL RBC 4.14 L (4.30-5.90) m/uL Hgb 12.7 L (13.0-17.5) gm/dL Hct 37.9 L (39.0-53.0) % Neutrophils # (1.3-7.7) k/uL Neutrophils # (Manual) 14.62 H (1.3-7.7) k/uL Lymphocytes # (1.0-4.8) k/uL Monocytes # (Manual) 1.38 H (0-1.0) k/uL ESR (0-15) mm/hr Sodium 133 L (137-145) mmol/L Chloride (98-107) mmol/L Carbon Dioxide 18 L (22-30) mmol/L Glucose 124 H (74-99) mg/dL Calcium (8.4-10.2) mg/dL C-Reactive Protein (<10.0) mg/L Total Protein 6.2 L (6.3-8.2) g/dL Albumin (3.5-5.0) g/dL Urine Protein 2+ H (Negative) Urine Ketones 2+ H (Negative) Urine Blood Small H (Negative) Urine Bacteria Rare H (None) /hpf Urine Mucus Occasional H (None) /hpf 10/20/17 10/20/17 10/21/17 Range/Units 19:08 Unknown 07:59 WBC 11.2 H (3.8-10.6) k/uL RBC 3.75 L (4.30-5.90) m/uL Hgb 11.2 L (13.0-17.5) gm/dL Hct 34.5 L (39.0-53.0) % Neutrophils # 9.6 H (1.3-7.7) k/uL Neutrophils # (Manual) (1.3-7.7) k/uL Lymphocytes # 0.7 L (1.0-4.8) k/uL Monocytes # (Manual) (0-1.0) k/uL ESR 28 H (0-15) mm/hr Sodium (137-145) mmol/L Chloride (98-107) mmol/L Carbon Dioxide (22-30) mmol/L Glucose (74-99) mg/dL Calcium (8.4-10.2) mg/dL C-Reactive Protein 214.8 H (<10.0) mg/L Total Protein (6.3-8.2) g/dL Albumin (3.5-5.0) g/dL Urine Protein (Negative) Urine Ketones (Negative) Urine Blood (Negative) Urine Bacteria (None) /hpf Urine Mucus (None) /hpf 10/21/17 Range/Units 07:59 WBC (3.8-10.6) k/uL RBC (4.30-5.90) m/uL Hgb (13.0-17.5) gm/dL Hct (39.0-53.0) % Neutrophils # (1.3-7.7) k/uL Neutrophils # (Manual) (1.3-7.7) k/uL Lymphocytes # (1.0-4.8) k/uL Monocytes # (Manual) (0-1.0) k/uL ESR (0-15) mm/hr Sodium (137-145) mmol/L Chloride 110 H (98-107) mmol/L Carbon Dioxide 17 L (22-30) mmol/L Glucose (74-99) mg/dL Calcium 8.1 L (8.4-10.2) mg/dL C-Reactive Protein (<10.0) mg/L Total Protein 5.1 L (6.3-8.2) g/dL Albumin 2.8 L (3.5-5.0) g/dL Urine Protein (Negative) Urine Ketones (Negative) Urine Blood (Negative) Urine Bacteria (None) /hpf Urine Mucus (None) /hpf Microbiology - Last 24 Hours (Table) 10/20/17 15:51 Urine Culture - Preliminary Urine,Voided Assessment and Plan (1) Sepsis Narrative/Plan: * Presumed secondary to osteomyelitis, CRP elevated at 214, MRI ordered and is pending * Patient afebrile since admission, leukocytosis trending down from 17-11 * Continue current antibiotic regimen with vancomycin and Zosyn and Levaquin * Patient hemodynamically stable * Awaiting ID consultation Current Visit: Yes Status: Acute Code(s): A41.9 - SEPSIS, UNSPECIFIED ORGANISM SNOMED Code(s): 77002240 (2) Immunosuppressed status Narrative/Plan: * Secondary to history of renal and pancreas transplantation currently on Prograf and CellCept * ID consult pending Current Visit: Yes Status: Acute Code(s): D89.9 - DISORDER INVOLVING THE IMMUNE MECHANISM, UNSPECIFIED SNOMED Code(s): 11130411 (3) Essential hypertension Narrative/Plan: * Blood pressure stable * Continue home regimen Current Visit: Yes Status: Acute Code(s): I10 - ESSENTIAL (PRIMARY) HYPERTENSION SNOMED Code(s): 71994796 (4) Osteomyelitis Narrative/Plan: * Follow-up MRI of the right foot * Antibiotic regimen as above Current Visit: Yes Status: Acute Code(s): M86.9 - OSTEOMYELITIS, UNSPECIFIED SNOMED Code(s): 02514707 Plan: Disposition : Awaiting ID consultation follow-up MRI Anticipate discharge in 2-3 days
--- NOTE | 2017-10-21 13:08 | MR ---
EXAMINATION TYPE: MR foot RT wo con DATE OF EXAM: 10/21/2017 COMPARISON: Radiograph 10/19/2017 HISTORY: 57-year-old male Rt foot medial mid foot unopened lump/mass, hx of kidney/pancreas transplan t-no essence per Dr. Guy TECHNIQUE: Multiplanar, multisequence images of the right foot were obtained without IV contrast. FINDINGS: Severe degenerative changes at the ankle likely with some degree of interbody ankylosis. Severe degen erative changes at the posterior subtalar joint with subchondral marrow signal changes and articular surface irregularity. Degenerative changes along the TMT joints, possible chronic Lisfranc injury as there seems to be some abnormal alignment along the medial margin of the second TMT joint on axial se lissette. Hammertoe deformities. 4.2 x 1.9 x 2.8 cm mass, apparent fluid collection along the medial plantar midfoot region abuts the underlying adductor pollicis tendon. There is surrounding tenosynovitis and possible small split tear distal Some focal T2 bright marrow signal changes in the underlying plantar aspect of the medial cuneiform. No surrounding bone marrow edema. Nonspecific soft tissue edema in the plantar musculature. There is bony deformity centered at the fifth IP joint with bone loss, low T1-weighted signal, but o nly mild increased fluid signal. IMPRESSION: 1. Age indeterminate bony deformity to the fifth IP joint with bone loss and some low T1 signal but o nly mild increased fluid signal. A site of prior infection or fracture is favored. Correlate for any focal acute symptoms at this site. 2. A 4.2 cm mass, suspected fluid collection along the medial plantar midfoot. This is located superf icial to the adductor pollicis and there is some contiguous fluid around this tendon and fluid extend ing down to the underlying medial cuneiform where minimal focal bony signal change is present. Correl ate for possible etiologies such as a large adventitial bursa, abscess with adjacent tenosynovitis, a nd nodular fasciitis. Ultrasound may be helpful to determine if this is a drainable fluid collection. 3. The signal change within the medial cuneiform is focal and minimal, likely reactive. No surroundin g bone marrow edema here to suggest osteomyelitis at this time. 4. Extensive arthritis and deformity to the ankle, midfoot, and hindfoot.
[2017-10-21] MEDS: SODIUM CHLORIDE 0.9% 1,000 ML IV SCH ×2 (14:21→19:46)
--- NOTE | 2017-10-21 15:05 | P.GSCN ---
History of Present Illness Consult date: 10/21/17 History of present illness: The patient is a 57-year-old gentleman with history of poorly controlled diabetes as well as pancreas kidney transplant. His mother is at bedside. He was about to go back to [facility] [place] follow-up earlier this week for his transplant surgery when he developed acute onset abdominal pain. Separately he reports swelling along the medial aspect of the right foot. He has long-standing history at the wound care center where he was seeing Dr. Guerrero for open foot ulcers. He reports also new swelling along the right medial foot. He has Charcot's deformity. 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 General surgery is consulted regarding wound care. He also reports history of poor circulation. Since admission, his abdominal pain has improved after eating. Review of Systems CONSTITUTIONAL: Denies any fever or chills. HEENT: Denies any trouble with vision, hearing or nosebleeds. No difficulty swallowing. LYMPHATIC: The patient denies any lumps and bumps around the neck. ENDOCRINE: Denies any thyroid disorders. Has blood sugar glucose intolerance. RESPIRATORY: Denies pneumonia. Denies any troubles with breathing or dyspnea on exertion. CARDIOVASCULAR: Denies any chest pain, palpitations, or recent heart attacks. Has peripheral vascular occlusive disease GASTROINTESTINAL: Has heart burn. No constipation or bright red blood per rectum. GENITOURINARY: Denies any blood in urine or increased urinary frequency. MUSCULOSKELETAL: Has any back pain, stiffness, joint arthritis. NEUROLOGIC: Has neuropathy of the lower extremities. No seizure disorders or headaches. PSYCHIATRIC: Denies depression or suidical ideation. HEMATOLOGIC: Denies any abnormal bleeding or bruising. On immunosuppressants for pancreas kidney transplant BREASTS: Denies any breast lumps, pain or nipple discharge. Past Medical History Past Medical History: Cancer, Skin Disorder Additional Past Medical History / Comment(s): RT FOOT OPEN AREA, PVD, WAS TX FOR DIABETES UP UNTIL HIS TRANSPLANT(). 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 Past Anesthesia/Blood Transfusion Reactions: No Reported Reaction Past Psychological History: Anxiety Smoking Status: Former smoker Past Alcohol Use History: None Reported Past Drug Use History: None Reported - Past Family History Father Additional Family Medical History / Comment(s): Pt states father of motorcycle accident 1970 Mother Family Medical History: No Reported History Medications and Allergies Home Medications Medication Instructions Recorded Confirmed Type Aspirin 81 mg PO DAILY 09/27/13 10/20/17 History Bimatoprost [Lumigan .01% Ophth 1 drop BOTH EYES HS 09/27/13 10/20/17 History Soln] Brimonidine Tartrate/Timolol 1 drop BOTH EYES BID 09/27/13 10/20/17 History [Combigan 0.2%/0.5% Ophth Soln] Enalapril [Vasotec] 20 mg PO BID 09/27/13 10/20/17 History Lovastatin [Mevacor] 20 mg PO HS 09/27/13 10/20/17 History Multivitamin [Men's Multi-Vitamin] 1 tab PO DAILY 09/27/13 10/20/17 History Mycophenolate Mofetil [Cellcept] 500 mg PO BID 09/27/13 10/20/17 History NIFEdipine XL [Procardia XL] 90 mg PO DAILY 09/27/13 10/20/17 History predniSONE 5 mg PO DAILY 09/27/13 10/20/17 History Tacrolimus [Prograf] 1 mg PO BID 01/03/14 10/20/17 History Cholecalciferol [Vitamin D3] 1,000 unit PO DAILY 12/02/14 10/20/17 History Dorzolamide 2% [Trusopt 2%] 1 drops LEFT EYE BID 12/02/14 10/20/17 History Propranolol HCl [Inderal Xl] 80 mg PO DAILY 12/02/14 10/20/17 History Clindamycin HCl [Cleocin] 300 mg PO TID 10/20/17 10/20/17 History Folic Acid 1 mg PO DAILY 10/20/17 10/20/17 History Ondansetron HCl [Zofran] 4 mg PO TID PRN 10/20/17 10/20/17 History Allergies Allergy/AdvReac Type Severity Reaction Status Date / Time latex AdvReac Rash/Hives Verified 10/20/17 14:52 Penicillins AdvReac Rash/Hives Verified 10/20/17 14:52 Surgical - Exam Vital Signs Temp Pulse Resp BP Pulse Ox 100.7 F H 88 20 131/73 98 10/20/17 14:00 10/20/17 14:00 10/20/17 14:00 10/20/17 14:00 10/20/17 14:00 GENERAL: Well developed and in no acute distress. Pleasant. HEENT: No sclera icterus. Extraocular movements grossly intact. Moist buccal mucosa. Head is atraumatic, normocephalic. Hears conversational speech. No nasal drainage. NECK: Supple without lymphadenopathy. No JV distention. CHEST: Non-labored respirations and equal bilateral excursions. CARDIOVASCULAR: Regular rate and rhythm. Palpable 2+ radial pulses. ABDOMEN: Soft, nontender. Nondistended. MUSCULOSKELETAL: No clubbing, cyanosis or edema. Minimal hair along the bilateral lower legs. Has 3-cm water blister of the right medial foot with Charcot deformity without rupture. Pulses along the dorsalis pedis and posterior tibialis nonpalpable. NEUROLOGIC: No focal or lateralizing signs. PSYCH: Appropriate affect. Alert and oriented to person, place and time. SKIN: Good skin turgor. Well perfused. Results - Labs 10/21/17 07:59 10/21/17 07:59 Abnormal Lab Results - Last 24 Hours (Table) 10/20/17 10/20/17 10/20/17 Range/Units 14:47 14:47 14:47 WBC 17.2 H (3.8-10.6) k/uL RBC 4.14 L (4.30-5.90) m/uL Hgb 12.7 L (13.0-17.5) gm/dL Hct 37.9 L (39.0-53.0) % Neutrophils # (1.3-7.7) k/uL Neutrophils # (Manual) 14.62 H (1.3-7.7) k/uL Lymphocytes # (1.0-4.8) k/uL Monocytes # (Manual) 1.38 H (0-1.0) k/uL ESR (0-15) mm/hr Sodium 133 L (137-145) mmol/L Chloride (98-107) mmol/L Carbon Dioxide 18 L (22-30) mmol/L Glucose 124 H (74-99) mg/dL Calcium (8.4-10.2) mg/dL C-Reactive Protein (<10.0) mg/L Total Protein 6.2 L (6.3-8.2) g/dL Albumin (3.5-5.0) g/dL Urine Protein (Negative) Urine Ketones (Negative) Urine Blood (Negative) Urine Bacteria (None) /hpf Urine Mucus (None) /hpf Tacrolimus 4.8 L (5.0-20.0) ng/mL 10/20/17 10/20/17 10/20/17 Range/Units 15:51 19:08 Unknown WBC (3.8-10.6) k/uL RBC (4.30-5.90) m/uL Hgb (13.0-17.5) gm/dL Hct (39.0-53.0) % Neutrophils # (1.3-7.7) k/uL Neutrophils # (Manual) (1.3-7.7) k/uL Lymphocytes # (1.0-4.8) k/uL Monocytes # (Manual) (0-1.0) k/uL ESR 28 H (0-15) mm/hr Sodium (137-145) mmol/L Chloride (98-107) mmol/L Carbon Dioxide (22-30) mmol/L Glucose (74-99) mg/dL Calcium (8.4-10.2) mg/dL C-Reactive Protein 214.8 H (<10.0) mg/L Total Protein (6.3-8.2) g/dL Albumin (3.5-5.0) g/dL Urine Protein 2+ H (Negative) Urine Ketones 2+ H (Negative) Urine Blood Small H (Negative) Urine Bacteria Rare H (None) /hpf Urine Mucus Occasional H (None) /hpf Tacrolimus (5.0-20.0) ng/mL 10/21/17 10/21/17 Range/Units 07:59 07:59 WBC 11.2 H (3.8-10.6) k/uL RBC 3.75 L (4.30-5.90) m/uL Hgb 11.2 L (13.0-17.5) gm/dL Hct 34.5 L (39.0-53.0) % Neutrophils # 9.6 H (1.3-7.7) k/uL Neutrophils # (Manual) (1.3-7.7) k/uL Lymphocytes # 0.7 L (1.0-4.8) k/uL Monocytes # (Manual) (0-1.0) k/uL ESR (0-15) mm/hr Sodium (137-145) mmol/L Chloride 110 H (98-107) mmol/L Carbon Dioxide 17 L (22-30) mmol/L Glucose (74-99) mg/dL Calcium 8.1 L (8.4-10.2) mg/dL C-Reactive Protein (<10.0) mg/L Total Protein 5.1 L (6.3-8.2) g/dL Albumin 2.8 L (3.5-5.0) g/dL Urine Protein (Negative) Urine Ketones (Negative) Urine Blood (Negative) Urine Bacteria (None) /hpf Urine Mucus (None) /hpf Tacrolimus (5.0-20.0) ng/mL Microbiology - Last 24 Hours (Table) 10/20/17 14:47 Blood Culture Gram Stain - Preliminary Blood 10/20/17 14:47 Blood Culture - Final Blood 10/20/17 15:51 Urine Culture - Preliminary Urine,Voided Diabetes panel 10/20/17 10/21/17 Range/Units 14:47 07:59 Sodium 133 L 137 (137-145) mmol/L Potassium 4.7 4.4 (3.5-5.1) mmol/L Chloride 103 110 H (98-107) mmol/L Carbon Dioxide 18 L 17 L (22-30) mmol/L BUN 19 18 (9-20) mg/dL Creatinine 1.09 1.02 (0.66-1.25) mg/dL Glucose 124 H 88 (74-99) mg/dL Calcium 9.1 8.1 L (8.4-10.2) mg/dL AST 24 22 (17-59) U/L ALT 25 21 (21-72) U/L Alkaline Phosphatase 66 50 (38-126) U/L Total Protein 6.2 L 5.1 L (6.3-8.2) g/dL Albumin 3.7 2.8 L (3.5-5.0) g/dL Calcium panel 10/20/17 10/21/17 Range/Units 14:47 07:59 Calcium 9.1 8.1 L (8.4-10.2) mg/dL Phosphorus 2.8 (2.5-4.5) mg/dL Albumin 3.7 2.8 L (3.5-5.0) g/dL Pituitary panel 10/20/17 10/21/17 Range/Units 14:47 07:59 Sodium 133 L 137 (137-145) mmol/L Potassium 4.7 4.4 (3.5-5.1) mmol/L Chloride 103 110 H (98-107) mmol/L Carbon Dioxide 18 L 17 L (22-30) mmol/L BUN 19 18 (9-20) mg/dL Creatinine 1.09 1.02 (0.66-1.25) mg/dL Glucose 124 H 88 (74-99) mg/dL Calcium 9.1 8.1 L (8.4-10.2) mg/dL Adrenal panel 10/20/17 10/21/17 Range/Units 14:47 07:59 Sodium 133 L 137 (137-145) mmol/L Potassium 4.7 4.4 (3.5-5.1) mmol/L Chloride 103 110 H (98-107) mmol/L Carbon Dioxide 18 L 17 L (22-30) mmol/L BUN 19 18 (9-20) mg/dL Creatinine 1.09 1.02 (0.66-1.25) mg/dL Glucose 124 H 88 (74-99) mg/dL Calcium 9.1 8.1 L (8.4-10.2) mg/dL Total Bilirubin 0.8 0.3 (0.2-1.3) mg/dL AST 24 22 (17-59) U/L ALT 25 21 (21-72) U/L Alkaline Phosphatase 66 50 (38-126) U/L Total Protein 6.2 L 5.1 L (6.3-8.2) g/dL Albumin 3.7 2.8 L (3.5-5.0) g/dL - Imaging CT scan - abdomen: report reviewed, image reviewed CT scan - pelvis: report reviewed, image reviewed (No small bowel obstruction. No free air.) Assessment and Plan (1) Charcot foot due to diabetes mellitus Current Visit: Yes Status: Acute Code(s): E11.610 - TYPE 2 DIABETES MELLITUS W DIABETIC NEUROPATHIC ARTHROPATHY SNOMED Code(s): 824612016 (2) History of simultaneous kidney and pancreas transplant Current Visit: Yes Status: Acute Code(s): Z94.0 - KIDNEY TRANSPLANT STATUS; Z94.83 - PANCREAS TRANSPLANT STATUS SNOMED Code(s): 884839928 (3) Immunosuppressed status Current Visit: Yes Status: Acute Code(s): D89.9 - DISORDER INVOLVING THE IMMUNE MECHANISM, UNSPECIFIED SNOMED Code(s): 88680736 (4) Fever Current Visit: No Status: Acute Code(s): R50.9 - FEVER, UNSPECIFIED SNOMED Code(s): 202222233 (5) Peripheral vascular occlusive disease Current Visit: Yes Status: Acute Code(s): I73.9 - PERIPHERAL VASCULAR DISEASE, UNSPECIFIED SNOMED Code(s): 822083374 Plan: 1. No general surgical intervention at this time. 2. Recommend referral to vascular surgeon regarding peripheral vascular occlusive disease 3. He has history of Charcot's foot with foot orthopedic would be of benefit 4. Patient reports long-standing history of seeing Dr. Guerrero. Recommend consultation as a result. 5. We'll follow as needed.
--- NOTE | 2017-10-21 18:48 | CONS ---
CONSULTATION This is a 57-year-old gentleman who has been admitted with history of abdominal pain. The patient also noticed to have a cystic mass right foot, plantar aspect. According to the patient, he had this mass for long period of time. [facility]. The patient has history of essential hypertension, history of pancreatic transplant since 1997. X-ray of the foot shows there is a fluid collection noted in the plantar aspect of the right foot. The measurement is 4.2 x 1.9 x 2.8 cystic mass. There is some fluid collection by x-ray and also x-ray shows some erosive changes involving the proximal phalanx of the 5th digit for possible osteomyelitis. The patient is on IV antibiotic. EXAMINATION: Patient's femorals are 1+ bilateral. The patient has a new cystic mass on the plantar aspect of the right foot with slight redness noted. The patient has A positive blood culture. We will wait for the urine culture report and if this is negative, then we consider possibly this is a source of infection. The patient will need I and D. We will arrange. That can be done on the bedside under local which we will follow with you. Thank you very much. MMODL / IJN: [id number] /
[2017-10-21] MEDS: ATORVASTATIN 10 MG TAB PO SCH (19:44)
[2017-10-21] MEDS: LATANOPROST 0.005% OPHTH DROPS 2.5 ML BTL BOTH EYES SCH (19:46)
--- NOTE | 2017-10-21 20:42 | P.GSHP ---
History of Present Illness H&P Date: 10/21/17 Chief Complaint: Painful soft tissue mass right foot This 57-year-old patient who is known to me and has been seen in my office for the past several years for diabetic foot care. He presented to the emergency room last night with abdominal pain. Subsequently with this abdominal pain he also developed some redness and swelling of his right foot. Patient states this was present for only a few days at most. Patient was scheduled to go to [facility] [place] for follow-up this week but did not due to the abdominal pain. I am being consulted for the soft tissue lesion on his right foot. Patient has been on IV antibiotics at this time and states that he does feel better than he did last night. Past Medical History Past Medical History: Cancer, Skin Disorder Additional Past Medical History / Comment(s): RT FOOT OPEN AREA, PVD, WAS TX FOR DIABETES UP UNTIL HIS TRANSPLANT(). 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 Past Anesthesia/Blood Transfusion Reactions: No Reported Reaction Past Psychological History: Anxiety Smoking Status: Former smoker Past Alcohol Use History: None Reported Past Drug Use History: None Reported - Past Family History Father Additional Family Medical History / Comment(s): Pt states father of motorcycle accident 1970 Mother Family Medical History: No Reported History Medications and Allergies Home Medications Medication Instructions Recorded Confirmed Type Aspirin 81 mg PO DAILY 09/27/13 10/20/17 History Bimatoprost [Lumigan .01% Ophth 1 drop BOTH EYES HS 09/27/13 10/20/17 History Soln] Brimonidine Tartrate/Timolol 1 drop BOTH EYES BID 09/27/13 10/20/17 History [Combigan 0.2%/0.5% Ophth Soln] Enalapril [Vasotec] 20 mg PO BID 09/27/13 10/20/17 History Lovastatin [Mevacor] 20 mg PO HS 09/27/13 10/20/17 History Multivitamin [Men's Multi-Vitamin] 1 tab PO DAILY 09/27/13 10/20/17 History Mycophenolate Mofetil [Cellcept] 500 mg PO BID 09/27/13 10/20/17 History NIFEdipine XL [Procardia XL] 90 mg PO DAILY 09/27/13 10/20/17 History predniSONE 5 mg PO DAILY 09/27/13 10/20/17 History Tacrolimus [Prograf] 1 mg PO BID 01/03/14 10/20/17 History Cholecalciferol [Vitamin D3] 1,000 unit PO DAILY 12/02/14 10/20/17 History Dorzolamide 2% [Trusopt 2%] 1 drops LEFT EYE BID 12/02/14 10/20/17 History Propranolol HCl [Inderal Xl] 80 mg PO DAILY 12/02/14 10/20/17 History Clindamycin HCl [Cleocin] 300 mg PO TID 10/20/17 10/20/17 History Folic Acid 1 mg PO DAILY 10/20/17 10/20/17 History Ondansetron HCl [Zofran] 4 mg PO TID PRN 10/20/17 10/20/17 History Allergies Allergy/AdvReac Type Severity Reaction Status Date / Time latex AdvReac Rash/Hives Verified 10/20/17 14:52 Penicillins AdvReac Rash/Hives Verified 10/20/17 14:52 Surgical - Exam Vital Signs Temp Pulse Resp BP Pulse Ox 100.7 F H 88 20 131/73 98 10/20/17 14:00 10/20/17 14:00 10/20/17 14:00 10/20/17 14:00 10/20/17 14:00 - Cardiovascular Patient has diminished pedal pulses of bilateral lower extremities. Patient has no digital hair 10. Skin temperature texture tumor appeared normal and warm bilateral. - Integumentary Patient has a hyperkeratotic lesion plantar to the talar navicular joint of the right foot which appears to have no underlying ulceration. Beneath this area is a soft tissue lesion fluid-filled measuring a proximally 4 cm in diameter. It is warm to touch with surrounding erythema and edema. There is no pain with palpation. This is secondary to the patient's neuropathy. Patient has a hyperkeratotic lesion on the fifth digit of the right foot as well as the distal aspect of the left hallux. There are no soft tissue ulcerations nor is there any break in the dermis of bilateral feet. Interdigital spaces are normal. A needle aspiration was performed after Betadine prep of this lesion. The fluid expressed was approximately 3 mL to 4 mL of a hematogenous type fluid with serosanguineous changes consistent with bursitis. There appeared to be little to no infectious process. - Neurologic A shunt has decreased epicritic and pallesthetic sensations bilateral. He has loss of protective sensation to an SWM 5.07 mg wire up to including the lower leg bilateral vibratory 2 point tactile diminished at the medial malleolus bilateral. - Musculoskeletal Patient has Charcot-type deformity which is stable and nonreactive bilateral feet. Patient has multiple digital deformities and they are non-rectus. Patient has a gastrocnemius equinus bilateral. All inverters everters plantar flexors dorsiflexors grossly intact and symmetrical bilateral Results - Labs 10/21/17 07:59 10/21/17 07:59 Abnormal Lab Results - Last 24 Hours (Table) 10/20/17 10/21/17 10/21/17 Range/Units 14:47 07:59 07:59 WBC 11.2 H (3.8-10.6) k/uL RBC 3.75 L (4.30-5.90) m/uL Hgb 11.2 L (13.0-17.5) gm/dL Hct 34.5 L (39.0-53.0) % Neutrophils # 9.6 H (1.3-7.7) k/uL Lymphocytes # 0.7 L (1.0-4.8) k/uL Chloride 110 H (98-107) mmol/L Carbon Dioxide 17 L (22-30) mmol/L Calcium 8.1 L (8.4-10.2) mg/dL Total Protein 5.1 L (6.3-8.2) g/dL Albumin 2.8 L (3.5-5.0) g/dL Tacrolimus 4.8 L (5.0-20.0) ng/mL Microbiology - Last 24 Hours (Table) 10/20/17 14:47 Blood Culture Gram Stain - Preliminary Blood 10/20/17 14:47 Blood Culture - Final Blood 10/20/17 15:51 Urine Culture - Preliminary Urine,Voided Diabetes panel 10/21/17 Range/Units 07:59 Sodium 137 (137-145) mmol/L Potassium 4.4 (3.5-5.1) mmol/L Chloride 110 H (98-107) mmol/L Carbon Dioxide 17 L (22-30) mmol/L BUN 18 (9-20) mg/dL Creatinine 1.02 (0.66-1.25) mg/dL Glucose 88 (74-99) mg/dL Calcium 8.1 L (8.4-10.2) mg/dL AST 22 (17-59) U/L ALT 21 (21-72) U/L Alkaline Phosphatase 50 (38-126) U/L Total Protein 5.1 L (6.3-8.2) g/dL Albumin 2.8 L (3.5-5.0) g/dL Calcium panel 10/21/17 Range/Units 07:59 Calcium 8.1 L (8.4-10.2) mg/dL Phosphorus 2.8 (2.5-4.5) mg/dL Albumin 2.8 L (3.5-5.0) g/dL Pituitary panel 10/21/17 Range/Units 07:59 Sodium 137 (137-145) mmol/L Potassium 4.4 (3.5-5.1) mmol/L Chloride 110 H (98-107) mmol/L Carbon Dioxide 17 L (22-30) mmol/L BUN 18 (9-20) mg/dL Creatinine 1.02 (0.66-1.25) mg/dL Glucose 88 (74-99) mg/dL Calcium 8.1 L (8.4-10.2) mg/dL Adrenal panel 10/21/17 Range/Units 07:59 Sodium 137 (137-145) mmol/L Potassium 4.4 (3.5-5.1) mmol/L Chloride 110 H (98-107) mmol/L Carbon Dioxide 17 L (22-30) mmol/L BUN 18 (9-20) mg/dL Creatinine 1.02 (0.66-1.25) mg/dL Glucose 88 (74-99) mg/dL Calcium 8.1 L (8.4-10.2) mg/dL Total Bilirubin 0.3 (0.2-1.3) mg/dL AST 22 (17-59) U/L ALT 21 (21-72) U/L Alkaline Phosphatase 50 (38-126) U/L Total Protein 5.1 L (6.3-8.2) g/dL Albumin 2.8 L (3.5-5.0) g/dL Assessment and Plan Assessment: Bursitis hematoma plantar right foot Diabetic neuropathy bilateral with peripheral vascular disease Charcot joint disease stable bilateral Plan: Exam. Discussed with patient our impression in finding after reviewing H&P radiographs x-rays etc. Appears to be a soft tissue bursitis or hematoma secondary to shear force with ambulation. Consent was signed for needle aspiration of the area with aspirin to be sent out for biological analysis. Betadine prep of the area. Using a 22 and an 18-gauge needle approximately 3-4 mL of aspirate was removed from the lesion. This aspirate was retained and sent to biology for analysis and culture and sensitivity testing etc. We then applied Bactroban and a compressive dry sterile dressing over the soft tissue area which appeared to be a hematoma or bursitis. We explained the patient our findings impression. We'll have the patient stay nonweightbearing on this foot to allow the hematoma and bursitis to resolve. We will follow the patient. Thank you for this consult Time with Patient: Greater than 30
[2017-10-22] MEDS ORDERED: VANCOMYCIN TROUGH DUE 1 EACH MISC MISCELLANE ONE (05:00)
[2017-10-22 05:48] LABS: HCT 37.5 % (39.0-53.0); HGB 12.2 gm/dL (13.0-17.5); MCHC 32.5 g/dL (31.0-37.0); MCV 92.1 fL (80.0-100.0); Mean Platelet Volume 6.6; Platelet Count 361 k/uL (150-450); RBC 4.07 m/uL (4.30-5.90); RDW 15.1 % (11.5-15.5); WBC 10.8 k/uL (3.8-10.6)
[2017-10-22 05:57] LABS: Calcium 8.7 mg/dL (8.4-10.2); Potassium 4.1 mmol/L (3.5-5.1)
[2017-10-22] MEDS: VANCOMYCIN 1,250 MG in SODIUM CHLORIDE 0.9% 250 ML IVPB SCH (06:24)
[2017-10-22 06:37] LABS: Band Neutrophils % 1 %; Basophils # (M) 0.11 k/uL (0-0.2); Eosinophils # (M) 0.11 k/uL (0-0.7); Lymphocytes # (M) 0.65 k/uL (1.0-4.8); Monocytes # (M) 1.62 k/uL (0-1.0); Neutrophils % (M) 76 %; Nucleated Red Blood Cells 0 /100 WBC (0-0); Total Cells Counted 100
[2017-10-22] MEDS: PIPERACILLIN-TAZOBACTAM 3.375 GM in DEXTROSE/WATER 1 50ML.BAG IVPB SCH ×2 (08:09→16:28)
[2017-10-22] MEDS: PROPRANOLOL LA 80 MG CAP.SA.24H PO SCH (08:10)
[2017-10-22] MEDS: ASPIRIN 81 MG PO SCH (08:11)
[2017-10-22] MEDS: FOLIC ACID 1 MG TAB PO SCH (08:11)
[2017-10-22] MEDS: predniSONE 5 MG TAB PO SCH (08:11)
[2017-10-22] MEDS: NIFEdipine XL 90 MG TAB.ER.24 PO SCH (08:11)
[2017-10-22] MEDS: TACROLIMUS 1 MG CAP PO SCH ×2 (08:12→20:30)
[2017-10-22] MEDS: MYCOPHENOLATE MOFETIL 500 MG TAB PO SCH ×2 (08:12→20:30)
[2017-10-22] MEDS: LISINOPRIL 20 MG TAB PO SCH ×2 (08:13→20:29)
[2017-10-22] MEDS: ENOXAPARIN 40 MG/0.4 ML SYRINGE SQ SCH (08:13)
[2017-10-22] MEDS: TIMOLOL 0.5% OPHTH DROPS 5 ML BTL BOTH EYES SCH ×2 (08:14→20:32)
[2017-10-22] MEDS: BRIMONIDINE TARTRATE 0.2% DROPS 5 ML BTL BOTH EYES SCH ×2 (08:15→20:32)
--- NOTE | 2017-10-22 09:04 | CONS ---
CONSULTATION DATE OF SERVICE: 10/21/2017. REASON FOR CONSULTATION: Fever and antibiotic recommendation. HISTORY OF PRESENT ILLNESS: The patient is a 57-year-old male with a past medical history significant for kidney and pancreas transplant back in 1997. The patient seemed to have a previous history of wound to the right foot area for which the patient has been under the care of [facility] and currently in the outpatient setting. The patient did have a small fluffy mass on the right foot plantar aspect which the patient says has been there for a while. However, recently the area has become more swollen, red and not painful as the patient has underlying diabetic neuropathy. The patient has been seen in the outpatient setting by his primary care physician as the patient still having some fever along with abdominal pain. The patient has been started on antibiotic but the patient is not sure about the name of those antibiotics. He did have blood work done and was called in by his PCP that his white count was elevated. Subsequently, directed to go to the [facility] ER. On arrival to the ER, the patient did have a CT abdominal pelvis which did not show any acute abnormality. The patient did have fever of 101.0 degrees Fahrenheit with the white count elevated to 17.2. The patient did have blood cultures drawn, which did show any gram-positive cocci. The patient also have an MRI of his right foot completed today which did show 4.2 x 1.9 x 2.2 cm mass. Fluid collection along the medial plantar midfoot region. Infectious Disease was consulted for further recommendation regarding antibiotic therapy. REVIEW OF SYSTEMS: CONSTITUTIONAL: Positive for weakness along with the fever. EYES: No complaint ENT: No complaint. RESPIRATORY: No complaint. CARDIOVASCULAR: No complaint. GENITOURINARY: No complaint. GASTROINTESTINAL: As per HPI. MUSCULOSKELETAL: As per HPI. INTEGUMENTARY: No complaint. PSYCHOLOGICAL: No complaint. ENDOCRINE: No complaint. NEUROLOGICAL: No complaint. PAST MEDICAL HISTORY: Significant for renal failure status post pancreatic and renal transplant. The patient did have a right diabetic foot ulcer, skin cancer, neuropathy, history of MRSA infection from right heel wound. PAST SURGICAL HISTORY: Tonsillectomy, kidney and pancreas transplant 1997, foot ulcer surgery. SOCIAL HISTORY: Remote history of smoking. No drinking or drug use. FAMILY HISTORY: No pertinent findings noticed. ALLERGIES: PENICILLIN with a rash. No history of anaphylaxis. MEDICATIONS: The patient is currently on aspirin, Lipitor, vitamin D3, Lovenox, folic acid, Zestril, CellCept, Narcan, Procardia, Zofran, Zosyn, prednisone, Inderal, Prograf, Timoptic, Ultram, and vancomycin pharmacy to dose. EXAMINATION: Blood pressure is 123/60 with a pulse of 75. Temperature 97.8, T-max is 101. He is 95% on room air. General description is a middle-aged male lying in bed in no distress. No tachypnea or accessory muscle of respiration use. HEENT: Shows slight pallor. No scleral icterus. Oral mucosa is dry. No pharyngeal erythema or thrush. NECK: Trachea central, no thyromegaly. LUNGS: Unlabored breathing. Clear to auscultation anteriorly. HEART: S1, S2. Regular rate and rhythm. ABDOMEN: Soft, no tenderness. No rigidity. EXTREMITIES: Feet examination of the right foot plantar aspect did have a fluctuant mass, minimally warm to touch. No drainage was noticed. NEUROLOGICAL: The patient is awake, alert, oriented x3. Mood and affect are normal. LABS: Hemoglobin is 11.2 with a white count of 17.2, BUN of 18, creatinine 1.02. Electrolytes has been normal. Liver enzymes are normal. Urine has been negative. Blood cultures with gram-positive cocci. DIAGNOSTIC IMPRESSION/PLAN: 1. Patient presented to the hospital with sepsis in a patient who did have a fever of 101 degrees Fahrenheit. The patient did have elevated white count. The source is right diabetic foot infection with fluctuant mass on the plantar aspect of the right foot with concern for possible underlying abscess is the likely explanation. Clinically doubt any intraabdominal infections as the abdomen was soft on clinical examination and the patient's CT of the abdomen and pelvis was negative. 2. Patient is status post pancreas and renal transplant on immunosuppressive making him immunocompromised patient. 3. The patient also has risk of nephrotoxicity from vancomycin because of history of transplant, though his creatinine is currently normal. PLAN: 1. Blood cultures repeated. Recommend clearance of his bacteremia. 2. After discussion with the attending physician, Dr. Jacome has been consulted for aspirate and possible debridement of this area, which will be sent for culture. 3. The patient will continue on vancomycin pharmacy to dose with target of 15 while watching his kidney function closely. 4. We will follow up on the clinical condition and culture to further adjust medication if needed. Thank you for this consultation. I follow this patient along with you. MMODL / IJN: [id number] /
--- NOTE | 2017-10-22 10:38 | P.PN ---
Subjective Progress Note Date: 10/22/17 Patient much better spirits today reports that his abdominal pain is resolved, Appetite is now returning, denies any subjective fevers or chills. Patient with low-grade fever overnight Objective - Vital Signs Vital signs: Vital Signs Temp 97.1 F L 10/22/17 06:12 Pulse 80 10/22/17 06:12 Resp 18 10/22/17 06:12 BP 132/67 10/22/17 06:12 Pulse Ox 92 L 10/22/17 06:12 Intake & Output 10/21/17 10/22/17 10/22/17 18:59 06:59 18:59 Intake Total 700 Output Total 600 750 Balance 100 -750 Intake: Oral 700 Output: Urine 600 750 Other: # Voids 3 - Exam Constitutional: No acute distress, conversant, pleasant Eyes: Anicteric sclerae, moist conjunctiva, no lid-lag, PERRLA ENMT: NC/AT,Oropharynx clear, no erythema, exudates Neck:Supple, FROM, no masses, or JVD, No carotid bruits; No thyromegaly Lungs: Clear to auscultation, Clear to percussion, Normal respiratory effort, no accessory muscle use Cardiovascular: Heart regular in rate and rhythm, No murmurs, gallops, or rubs no peripheral edema Abdominal: Soft Nontender, nom distended, no guarding, no rebound or rigidity, Normoactive bowel sounds No hepatomegaly, No splenomegaly, No palpable mass No abdominal wall hernia noted Skin: Normal temperature, tone, texture, turgor, No induration No subcutaneous nodules, No rash, lesions, No ulcers Extremities:No digital cyanosis No clubbing, Pedal pulses intact and symmetrical Radial pulses intact and symmetrical Normal gait and station, Charcot-type deformity of bilateral feet, right foot with dressing Psychiatric: Alert and oriented to person, place and time, Appropriate affect Intact judgement Neuro: Muscles Strength 5/5 in all 4 extremities, Sensation to light touch grossly present throughout, Cranial nerves II-XII grossly intact. No focal sensory deficits - Labs CBC & Chem 7: 10/22/17 05:31 10/22/17 05:31 Labs: Abnormal Lab Results - Last 24 Hours (Table) 10/20/17 10/22/17 10/22/17 Range/Units 14:47 05:31 05:31 WBC 10.8 H (3.8-10.6) k/uL RBC 4.07 L (4.30-5.90) m/uL Hgb 12.2 L (13.0-17.5) gm/dL Hct 37.5 L (39.0-53.0) % Neutrophils # (Manual) 8.30 H (1.3-7.7) k/uL Lymphocytes # (Manual) 0.65 L (1.0-4.8) k/uL Monocytes # (Manual) 1.62 H (0-1.0) k/uL Chloride 110 H (98-107) mmol/L Carbon Dioxide 18 L (22-30) mmol/L Tacrolimus 4.8 L (5.0-20.0) ng/mL Microbiology - Last 24 Hours (Table) 10/20/17 14:47 Blood Culture Gram Stain - Preliminary Blood Blood Culture - Preliminary Presumptive Staph aureus 10/20/17 15:51 Urine Culture - Final Urine,Voided 10/20/17 14:47 Blood Culture - Final Blood Assessment and Plan (1) Sepsis Narrative/Plan: * Initially Presumed secondary to osteomyelitis effectively ruled out by MRI possibly secondary to infected bursitis versus hematoma, CRP elevated at 214, * Patient febrile overnight, leukocytosis stabilizing * Continue current antibiotic regimen with vancomycin and Zosyn * Patient hemodynamically stable * 1 out of 2 blood culture preliminary presumptive for staph aureus * Appreciate ID recommendations Current Visit: Yes Status: Acute Code(s): A41.9 - SEPSIS, UNSPECIFIED ORGANISM SNOMED Code(s): 40296525 (2) Immunosuppressed status Narrative/Plan: * Secondary to history of renal and pancreas transplantation currently on Prograf and CellCept * ID consult pending Current Visit: Yes Status: Acute Code(s): D89.9 - DISORDER INVOLVING THE IMMUNE MECHANISM, UNSPECIFIED SNOMED Code(s): 87891311 (3) Essential hypertension Narrative/Plan: * Blood pressure stable * Continue home regimen Current Visit: Yes Status: Acute Code(s): I10 - ESSENTIAL (PRIMARY) HYPERTENSION SNOMED Code(s): 60961314 (4) Bursitis of foot Narrative/Plan: * * Patient seen by Dr. Pimentel appreciate recommendations re: bursitis versus hematoma * Had aspiration of fluid approximately 3-4 ml appeared serosanguineous blood- tinged and sent for culture Current Visit: Yes Status: Acute Code(s): M77.50 - OTHER ENTHESOPATHY OF UNSPECIFIED FOOT SNOMED Code(s): 736217128 Plan: * Patient doing well today awaiting on wound cultures, and blood cultures * Anticipate discharge in 2-3 days
[2017-10-22] MEDS: DORZOLAMIDE HCL 2% DROPS 10 ML BTL LEFT EYE SCH ×2 (10:56→20:31)
[2017-10-22] MEDS: CHOLECALCIFEROL 1,000 UNIT TAB PO SCH (10:56)
--- NOTE | 2017-10-22 14:22 | P.PN ---
Subjective Progress Note Date: 10/22/17 Patient had bedside drainage today. No reports of abdominal pain today. He has been seen by additional consultants including vascular and for his wound care. Objective - Vital Signs Vital signs: Vital Signs Temp 97.1 F L 10/22/17 06:12 Pulse 80 10/22/17 06:12 Resp 18 10/22/17 06:12 BP 132/67 10/22/17 06:12 Pulse Ox 92 L 10/22/17 06:12 Intake & Output 10/21/17 10/22/17 10/22/17 18:59 06:59 18:59 Intake Total 700 Output Total 600 750 Balance 100 -750 Intake: Oral 700 Output: Urine 600 750 Other: # Voids 3 - Exam GENERAL: Well developed and in no acute distress. Pleasant. HEENT: No sclera icterus. Extraocular movements grossly intact. Moist buccal mucosa. Head is atraumatic, normocephalic. Hears conversational speech. No nasal drainage. NECK: Supple without lymphadenopathy. CHEST: Non-labored respirations and equal bilateral excursions. CARDIOVASCULAR: Regular rate and rhythm. Palpable 2+ radial pulses. ABDOMEN: Soft, nontender. Nondistended. MUSCULOSKELETAL: Dressing along the right foot clean dry and intact. Nonpalpable PT or DP pulses along right foot. Charcot deformity noted. NEUROLOGIC: No focal or lateralizing signs. PSYCH: Appropriate affect. Alert and oriented to person, place and time. SKIN: Good skin turgor. - Labs CBC & Chem 7: 10/22/17 05:31 10/22/17 05:31 Labs: Abnormal Lab Results - Last 24 Hours (Table) 10/22/17 10/22/17 Range/Units 05:31 05:31 WBC 10.8 H (3.8-10.6) k/uL RBC 4.07 L (4.30-5.90) m/uL Hgb 12.2 L (13.0-17.5) gm/dL Hct 37.5 L (39.0-53.0) % Neutrophils # (Manual) 8.30 H (1.3-7.7) k/uL Lymphocytes # (Manual) 0.65 L (1.0-4.8) k/uL Monocytes # (Manual) 1.62 H (0-1.0) k/uL Chloride 110 H (98-107) mmol/L Carbon Dioxide 18 L (22-30) mmol/L Microbiology - Last 24 Hours (Table) 10/21/17 20:30 Gram Stain - Preliminary Aspirate Body Fluid Culture - Preliminary 10/20/17 14:47 Blood Culture Gram Stain - Preliminary Blood Blood Culture - Preliminary Presumptive Staph aureus 10/20/17 15:51 Urine Culture - Final Urine,Voided 10/20/17 14:47 Blood Culture - Final Blood Assessment and Plan (1) Charcot foot due to diabetes mellitus Current Visit: Yes Status: Acute Code(s): E11.610 - TYPE 2 DIABETES MELLITUS W DIABETIC NEUROPATHIC ARTHROPATHY SNOMED Code(s): 717264676 (2) History of simultaneous kidney and pancreas transplant Current Visit: Yes Status: Acute Code(s): Z94.0 - KIDNEY TRANSPLANT STATUS; Z94.83 - PANCREAS TRANSPLANT STATUS SNOMED Code(s): 852821269 (3) Immunosuppressed status Current Visit: Yes Status: Acute Code(s): D89.9 - DISORDER INVOLVING THE IMMUNE MECHANISM, UNSPECIFIED SNOMED Code(s): 48817515 (4) Fever Current Visit: No Status: Acute Code(s): R50.9 - FEVER, UNSPECIFIED SNOMED Code(s): 266362446 (5) Peripheral vascular occlusive disease Current Visit: Yes Status: Acute Code(s): I73.9 - PERIPHERAL VASCULAR DISEASE, UNSPECIFIED SNOMED Code(s): 220764543 (6) Abdominal pain, generalized Current Visit: Yes Status: Acute Code(s): R10.84 - GENERALIZED ABDOMINAL PAIN SNOMED Code(s): 441948068 Plan: 1. His abdominal pain is resolved. 2. Management per vascular and wound care team regarding right foot. 3. No additional general surgical intervention needed. 4. We'll sign off.
[2017-10-22] MEDS: BACITRACIN 500 UNIT/GM OINT 28.4 GM TUBE TOPICAL SCH ×2 (16:27→20:33)
[2017-10-22] MEDS: SODIUM CHLORIDE 0.9% 1,000 ML IV SCH ×2 (16:27→23:44)
--- NOTE | 2017-10-22 19:13 | P.PCN ---
Date of Procedure: 10/21/17 Preoperative Diagnosis: Adventitious bursitis/hematoma plantar right foot Postoperative Diagnosis: Same Procedure(s) Performed: Needle aspiration of bursitis/hematoma right foot Anesthesia: none Surgeon: Porfirio Jacome Estimated Blood Loss (ml): 2 Pathology: other Condition: stable Disposition: no change Indications for Procedure: Erythema edema of the area of the right foot with sepsis of unknown etiology Operative Findings: The fluid that was withdrawn was a proximally 3-4 mL in the appeared to be of a bursa origin with minimal cellular debris Description of Procedure: Discussed with patient prior to procedure need and risk of needle aspiration. A timeout and consent was signed and we proceeded with the procedure. The area was prepped with Betadine for 3 minutes after which a 22 and a 18-gauge needle were inserted into the soft tissue wound. The needle was then advanced until the syringe was capable of removing fluid. Approximately 3 mL of fluid were removed with a 22-gauge needle and a another cc of fluid was removed with the 18 -gauge needle. After the procedure the wound was dressed in a mildly compressive manner using Bactroban 4 x 4's and Kerlix. The fluid was sent for pathology and analysis. Patient tolerated procedure well with no complications.
--- NOTE | 2017-10-22 19:15 | P.CON ---
Consult Note - . Consult date: 10/22/17 Assessment/Plan:: Patient was seen at bedside with a dry sterile dressing applied to the right foot the right foot dressing was removed and the lesion was inspected. There was decreasing erythema as well as edema to the area. There is decreasing temperature as well. There is no clinical sign of infection. The wound continues to appear to be a adventitious bursitis. We reviewed pathology results and there was a scant amount of gram-positive cocci which could be a skin contaminant. We'll continue to monitor the patient. If need be we can discharge the patient and address this as an outpatient if incision and drainage is indeed needed.
[2017-10-22] MEDS: ATORVASTATIN 10 MG TAB PO SCH (20:31)
[2017-10-22] MEDS: LATANOPROST 0.005% OPHTH DROPS 2.5 ML BTL BOTH EYES SCH (20:32)
[2017-10-22] MEDS ORDERED: VANCOMYCIN 1,250 MG in SODIUM CHLORIDE 0.9% 250 ML IVPB SCH (22:00)
--- NOTE | 2017-10-23 00:16 | PN ---
PROGRESS NOTE DATE OF SERVICE: 10/22/2017. REASON FOR FOLLOWUP: Right foot abscess with secondary bacteremia. INTERVAL HISTORY: The patient is afebrile. He has been breathing comfortably. The patient did have bedside drainage of the right foot fluid collection that will be sent for culture. Blood cultures with presumptive staph aureus. The patient denies having any chest pain or shortness of breath, cough. No abdominal pain or pain to the right foot area. EXAMINATION: Blood pressure 133/72 with a pulse of 75, temperature of 98.6. He is 95% on room air. General description is a middle-aged male lying in bed in no distress. Respiratory system: Unlabored breathing. Clear to auscultation anteriorly. Heart S1, S2. Regular rate and rhythm. Abdomen soft, no tenderness. Right foot is currently dressed up. No obvious drainage on the dressing. DIAGNOSTIC IMPRESSION AND PLAN: Patient with Staph aureus bacteremia, source is likely right foot abscess status post needle aspirate. May need further debridement. We will keep the patient on vancomycin while waiting for the sensitivity. Blood cultures repeat are of bacteremia. Discontinue Zosyn as no gram negative has been grown. Continue supportive care. MMODL / IJN: [id number] /
[2017-10-23] MEDS: TACROLIMUS 1 MG CAP PO SCH ×2 (08:02→20:20)
[2017-10-23] MEDS: FOLIC ACID 1 MG TAB PO SCH (08:02)
[2017-10-23] MEDS: NIFEdipine XL 90 MG TAB.ER.24 PO SCH (08:02)
[2017-10-23] MEDS: CHOLECALCIFEROL 1,000 UNIT TAB PO SCH (08:02)
[2017-10-23] MEDS: MYCOPHENOLATE MOFETIL 500 MG TAB PO SCH ×2 (08:02→20:20)
[2017-10-23] MEDS: PROPRANOLOL LA 80 MG CAP.SA.24H PO SCH (08:02)
[2017-10-23] MEDS: LISINOPRIL 20 MG TAB PO SCH ×2 (08:02→20:20)
[2017-10-23] MEDS: predniSONE 5 MG TAB PO SCH (08:02)
[2017-10-23] MEDS: ASPIRIN 81 MG PO SCH (08:02)
[2017-10-23] MEDS: ENOXAPARIN 40 MG/0.4 ML SYRINGE SQ SCH (08:03)
[2017-10-23] MEDS: BACITRACIN 500 UNIT/GM OINT 28.4 GM TUBE TOPICAL SCH ×2 (08:03→20:23)
[2017-10-23] MEDS: TIMOLOL 0.5% OPHTH DROPS 5 ML BTL BOTH EYES SCH ×2 (08:04→20:21)
[2017-10-23] MEDS: DORZOLAMIDE HCL 2% DROPS 10 ML BTL LEFT EYE SCH ×2 (08:04→20:21)
[2017-10-23] MEDS: BRIMONIDINE TARTRATE 0.2% DROPS 5 ML BTL BOTH EYES SCH ×2 (08:05→20:22)
[2017-10-23 10:00] LABS: HCT 40.5 % (39.0-53.0); HGB 13.2 gm/dL (13.0-17.5); MCH 30.4 pg (25.0-35.0); MCHC 32.6 g/dL (31.0-37.0); MCV 93.1 fL (80.0-100.0); Mean Platelet Volume 6.5; Platelet Count 404 k/uL (150-450); RBC 4.35 m/uL (4.30-5.90); RDW 15.2 % (11.5-15.5); WBC 11.9 k/uL (3.8-10.6)
[2017-10-23 10:20] LABS: Albumin 3.5 g/dL (3.5-5.0); Calcium 9.1 mg/dL (8.4-10.2); Potassium 4.3 mmol/L (3.5-5.1); Total Bilirubin 0.4 mg/dL (0.2-1.3); Total Protein 6.1 g/dL (6.3-8.2)
[2017-10-23] MEDS ORDERED: MELATONIN 5 MG TABLET PO PRN (10:47)
--- NOTE | 2017-10-23 10:48 | P.PN ---
Subjective Progress Note Date: 10/23/17 Principal diagnosis: Bursitis Patient is a 57-year-old male with a past medical history of renal and pancreatic transplantation, hypertension, and dyslipidemia who presented to the hospital with complaints of fever and being sent in by his PCP for elevated white blood cell count. In the emergency department he underwent an extensive evaluation. His initial vital signs showed a fever of 100.7. Initial blood work showed a white blood cell count of 17.2., Sodium 133, CRP of 214.8. Urinalysis was essentially negative. He was found to have sepsis and was started on IV fluids antibiotics and admitted for further care. There was concern for possible osteomyelitis on his right fifth toe. Infectious disease, Gen. surgery, and podiatry were all consulted. Patient underwent a bedside I&D of hematoma and bursitis of the right foot. He was found to have a staph aureus bacteremia with presumptive staph infection in his right foot. He had been placed on IV vancomycin. Repeat blood cultures were taken on 10/22 which showed no growth for 24 hours. Patient seen and examined at bedside. He denies any chest pain, shortness of breath, nausea, he is having loose stools but only 1 stool daily. He is concerned that he missed his nighttime dose of medications last night. He states he has not been sleeping well. Objective - Vital Signs Vital signs: Vital Signs Temp 99.3 F 10/23/17 07:00 Pulse 79 10/23/17 07:00 Resp 17 10/23/17 07:00 BP 154/72 10/23/17 07:00 Pulse Ox 93 L 10/23/17 07:00 Intake & Output 10/22/17 10/23/17 10/23/17 18:59 06:59 18:59 Intake Total 1200 550 Output Total 450 500 Balance 750 50 Intake: Oral 1200 550 Output: Urine 450 500 Other: # Voids 2 1 # Bowel Movements 1 - Exam General: non toxic, no distress, appears older than stated age, gaunt Derm: warm, dry Head: atraumatic, normocephalic, symmetric Eyes: EOMI, no lid lag, anicteric sclera Mouth: no lip lesion, mucus membranes moist Cardiovascular: S1S2 reg, no murmur, positive posterior tibial pulse bilateral, Lungs: Decreased breath sounds bilateral bases, no rhonchi, no rales , no accessory muscle use Abdominal: soft, nontender to palpation, no guarding, no appreciable organomegaly Ext: no gross muscle atrophy, no edema, no contractures, dressing in place over right foot and ankle Neuro: CN II-XI grossly intact, no focal neuro deficits Psych: Alert, oriented, appropriate affect - Labs CBC & Chem 7: 10/23/17 09:10 10/23/17 09:10 Labs: Abnormal Lab Results - Last 24 Hours (Table) 10/23/17 10/23/17 Range/Units 09:10 09:10 WBC 11.9 H (3.8-10.6) k/uL Chloride 112 H (98-107) mmol/L Carbon Dioxide 15 L (22-30) mmol/L Creatinine 1.30 H (0.66-1.25) mg/dL Glucose 121 H (74-99) mg/dL Total Protein 6.1 L (6.3-8.2) g/dL Microbiology - Last 24 Hours (Table) 10/21/17 20:30 Gram Stain - Preliminary Aspirate Body Fluid Culture - Preliminary Presumptive Staph aureus 10/22/17 05:31 Blood Culture - Preliminary Blood No Growth after 24 hours 10/20/17 14:47 Blood Culture Gram Stain - Final Blood Blood Culture - Final Staphylococcus aureus Assessment and Plan Assessment: Staph aureus Septic bursitis with staph aureus bacteremia with Charcot foot -Await repeat cultures to be negative for 24 hours -ID recommendations appreciated -anticipate changing from vancomycin to probable cephalosporin sensitivities available but will defer to ID -Podiatry recommendations Hyperchloremic metabolic acidosis -DC normal saline and -Repeat blood work in a.m Immunosuppression secondary to pancreas and kidney transplant -Continue with CellCept, Prograf, and prednisone. -Vital signs stable and patient does not show signs of adrenal insufficiency Hypertension, controlled -Continue beta owen, SLY inhibitor, and calcium channel owen -Follow blood pressures Dyslipidemia -Continue statin DVT prophylaxis: Lovenox Discussed with: Patient, nursing Anticipated discharge: 10/[address]: home A total of 40 minutes was spent on the care of this complex patient more than 50 % of the time was spent in counseling and care coordination.
[2017-10-23] MEDS: ceFAZolin IN SWFI 2 GM/20 ML SYRINGE IVP SCH ×3 (11:05→23:26)
[2017-10-23] MEDS: SODIUM CHLORIDE 0.45% 1,000 ML IV SCH (11:09)
--- NOTE | 2017-10-23 16:53 | P.PN ---
Progress Note - Text Progress Note Date: 10/23/17 The patient is up in his chair. He has just eaten dinner. He has no significant complaints of abdominal pain. On exam his vital signs are stable. His abdomen soft. There is no significant abdominal pain. Resolving abdominal pain. Patient was discharged home per medicine.
[2017-10-23] MEDS: ATORVASTATIN 10 MG TAB PO SCH (20:20)
[2017-10-23] MEDS: LATANOPROST 0.005% OPHTH DROPS 2.5 ML BTL BOTH EYES SCH (20:22)
--- NOTE | 2017-10-24 04:24 | PN ---
PROGRESS NOTE DATE OF SERVICE: 10/23/2017. REASON FOR FOLLOWUP: MSSA bacteremia secondary to right foot abscess. INTERVAL HISTORY: The patient is afebrile. He has been breathing comfortably. Denies having any significant chest pain or shortness of breath or cough. His abdominal pain has improved. No nausea, vomiting or diarrhea. Denies any worsening pain to the right foot area. EXAMINATION: Blood pressure 144/73 with a pulse of 74. Temperature 98.7. He is 95% on room air. General description is a middle-aged male lying in bed in no distress. RESPIRATORY SYSTEM: Unlabored breathing. Clear to auscultation anteriorly. HEART: S1, S2. Regular rate and rhythm. ABDOMEN: Right foot still has some swelling. No tenderness or any drainage. LABS: Hemoglobin 13.2, white count 11.9, BUN of 13, creatinine 1.30. DIAGNOSTIC IMPRESSION AND PLAN: Patient with MSSA bacteremia secondary to the right foot abscess. Follow up blood cultures 10/22 has been negative so far. The patient needs further debridement of the right foot fluid collection in order to completely take care of this infection. Continue with supportive care. MMODL / IJN: [id number] /
[2017-10-24] MEDS: SODIUM CHLORIDE 0.45% 1,000 ML IV SCH ×3 (08:12→15:02)
[2017-10-24] MEDS: ceFAZolin IN SWFI 2 GM/20 ML SYRINGE IVP SCH ×2 (08:36→16:17)
[2017-10-24 08:50] LABS: HCT 38.3 % (39.0-53.0); HGB 12.7 gm/dL (13.0-17.5); MCH 30.6 pg (25.0-35.0); MCHC 33.1 g/dL (31.0-37.0); MCV 92.5 fL (80.0-100.0); Mean Platelet Volume 6.3; Platelet Count 404 k/uL (150-450); RBC 4.14 m/uL (4.30-5.90); RDW 15.2 % (11.5-15.5); WBC 14.8 k/uL (3.8-10.6)
[2017-10-24] MEDS: LISINOPRIL 20 MG TAB PO SCH (08:52)
[2017-10-24] MEDS: FOLIC ACID 1 MG TAB PO SCH (08:52)
[2017-10-24] MEDS: BRIMONIDINE TARTRATE 0.2% DROPS 5 ML BTL BOTH EYES SCH ×2 (08:53→21:32)
[2017-10-24] MEDS: MYCOPHENOLATE MOFETIL 500 MG TAB PO SCH ×2 (08:53→20:08)
[2017-10-24] MEDS: TACROLIMUS 1 MG CAP PO SCH ×2 (08:53→20:08)
[2017-10-24] MEDS: ASPIRIN 81 MG PO SCH (08:53)
[2017-10-24] MEDS: CHOLECALCIFEROL 1,000 UNIT TAB PO SCH (08:55)
[2017-10-24] MEDS: predniSONE 5 MG TAB PO SCH (08:56)
[2017-10-24] MEDS: DORZOLAMIDE HCL 2% DROPS 10 ML BTL LEFT EYE SCH ×2 (08:56→21:33)
[2017-10-24] MEDS: NIFEdipine XL 90 MG TAB.ER.24 PO SCH (08:56)
[2017-10-24] MEDS: ENOXAPARIN 40 MG/0.4 ML SYRINGE SQ SCH (08:56)
[2017-10-24] MEDS: BACITRACIN 500 UNIT/GM OINT 28.4 GM TUBE TOPICAL SCH ×2 (08:57→21:32)
[2017-10-24] MEDS: TIMOLOL 0.5% OPHTH DROPS 5 ML BTL BOTH EYES SCH ×2 (08:57→21:34)
[2017-10-24] MEDS: PROPRANOLOL LA 80 MG CAP.SA.24H PO SCH (08:57)
--- NOTE | 2017-10-24 12:24 | P.PN ---
Subjective Progress Note Date: 10/24/17 Principal diagnosis: Septic Bursitis Patient is a 57-year-old male with a past medical history of renal and pancreatic transplantation, hypertension, and dyslipidemia who presented to the hospital with complaints of fever and being sent in by his PCP for elevated white blood cell count. In the emergency department he underwent an extensive evaluation. His initial vital signs showed a fever of 100.7. Initial blood work showed a white blood cell count of 17.2., Sodium 133, CRP of 214.8. Urinalysis was essentially negative. He was found to have sepsis and was started on IV fluids antibiotics and admitted for further care. There was concern for possible osteomyelitis on his right fifth toe. Infectious disease, Gen. surgery, and podiatry were all consulted. Patient underwent a bedside I&D of hematoma and bursitis of the right foot. He was found to have a staph aureus bacteremia with presumptive staph infection in his right foot. He had been placed on IV vancomycin. Repeat blood cultures were taken on 10/22 which showed no growth for 48 hours. His blood cultures came back as MSSA and he was switched to cefazolin. He does have a port and a blood culture was obtained Patient seen and examined at bedside. Feeling going down. Decreased appetite not drinking well. Denies any chest pain or shortness of breath. Still having some intermittent foot pain. Discussed with patient need for further I&D of foot area. Patient is in agreement. Also discussed worsening renal function and consultation with nephrology. Objective - Vital Signs Vital signs: Vital Signs Temp 98.4 F 10/24/17 06:28 Pulse 74 10/24/17 06:28 Resp 18 10/24/17 06:28 BP 165/69 10/24/17 06:28 Pulse Ox 96 10/24/17 06:28 Intake & Output 10/23/17 10/24/17 10/24/17 18:59 06:59 18:59 Intake Total 880 800 200 Output Total 1200 Balance 880 -400 200 Intake: Intake, IV Titration 400 Amount Sodium Chloride 0.45% 1, 400 000 ml @ 50 mls/hr IV . Q20H [facility] Rx#:[id number] Oral 480 800 200 Output: Urine 1200 Other: Voiding Method Urinal - Exam General: non toxic, no distress, appears older than stated age, gaunt Derm: warm, dry Head: atraumatic, normocephalic, symmetric Eyes: EOMI, no lid lag, anicteric sclera Mouth: no lip lesion, mucus membranes moist Cardiovascular: S1S2 reg, no murmur, positive posterior tibial pulse bilateral, Lungs: Decreased breath sounds bilateral bases, no rhonchi, no rales , no accessory muscle use Abdominal: soft, nontender to palpation, no guarding, no appreciable organomegaly Ext: no gross muscle atrophy, no edema, no contractures, dressing in place over right foot and ankle Neuro: CN II-XI grossly intact, no focal neuro deficits Psych: Alert, oriented, flat affect - Labs CBC & Chem 7: 10/24/17 08:23 10/24/17 08:23 Labs: Abnormal Lab Results - Last 24 Hours (Table) 10/24/17 10/24/17 Range/Units 08:23 08:23 WBC 14.8 H (3.8-10.6) k/uL RBC 4.14 L (4.30-5.90) m/uL Hgb 12.7 L (13.0-17.5) gm/dL Hct 38.3 L (39.0-53.0) % Chloride 111 H (98-107) mmol/L Carbon Dioxide 17 L (22-30) mmol/L Creatinine 1.67 H (0.66-1.25) mg/dL Microbiology - Last 24 Hours (Table) 10/21/17 20:30 Gram Stain - Final Aspirate Body Fluid Culture - Final Staphylococcus aureus 10/22/17 05:31 Blood Culture - Preliminary Blood No Growth after 48 hours Assessment and Plan Assessment: Staph aureus Septic bursitis with staph aureus bacteremia with Charcot foot -Repeat blood cultures negative for 48 hours -Check blood culture from port ordered 10/24 -ID recommendations appreciated , discussed with Dr. Sow -Vancomycin discontinued 10/23 and started on Kefzol -Discussed with Dr. Jacome plan is for I&D with the irrigation on 10/24 with increasing leukocytosis and bacteremia. ANA - ? secondary to acidosis consider sodium bicarb if acidosis does not improve with IVF - increase IVF - off vanco, hold lisinopril - Consult nephro with history of renal transplant Hyperchloremic metabolic acidosis - Normal saline was change to 0.45 on 10/23 will increase rate. -Repeat blood work in a.m Immunosuppression secondary to pancreas and kidney transplant -Continue with CellCept, Prograf, and prednisone. -Vital signs stable and patient does not show signs of adrenal insufficiency Hypertension, controlled -Continue beta owen, SLY inhibitor, and calcium channel owen -Follow blood pressures Dyslipidemia -Continue statin DVT prophylaxis: Lovenox Discussed with: Patient, nursing Anticipated discharge: 10/[address]: home A total of 40 minutes was spent on the care of this complex patient more than 50 % of the time was spent in counseling and care coordination.
[2017-10-24] MEDS ORDERED: PROPOFOL 10 MG/ML 20 ML VIAL IV ONE (18:37)
[2017-10-24] MEDS ORDERED: SODIUM CHLORIDE 0.9% 1,000 ML IV ONE (18:37)
[2017-10-24] MEDS ORDERED: fentaNYL (PF) 50 MCG/ML 2 ML AMP ONE (18:37)
[2017-10-24] MEDS ORDERED: MIDAZOLAM 2 MG/2 ML VIAL ONE (18:37)
[2017-10-24] MEDS ORDERED: VANCOMYCIN 1,000 MG in SODIUM CHLORIDE 0.9% IRRIGATIO 1,000 ML IRRIGATION ONE ×2 (18:50→18:58)
--- NOTE | 2017-10-24 19:25 | P.PN ---
Subjective Progress Note Date: 10/24/17 Principal diagnosis: Infected bursitis right foot diabetic neuropathy and Charcot joint disease Patient is being seen in the preop holding area. Patient has been prepped for I &D of the infected bursa. Patient voices no complaints or concerns. Objective - Vital Signs Vital signs: Vital Signs Temp 98.5 F 10/24/17 15:00 Pulse 69 10/24/17 15:00 Resp 16 10/24/17 15:00 BP 163/79 10/24/17 15:00 Pulse Ox 96 10/24/17 15:00 Intake & Output 10/24/17 10/24/17 10/25/17 06:59 18:59 06:59 Intake Total 800 302 0 Output Total 1200 400 10 Balance -400 -98 -10 Intake: IV 102 0 Oral 800 200 Output: Urine 1200 400 Estimated Blood Loss 10 Other: Voiding Method Urinal - Integumentary Integumentary Comment(s): She has decreasing erythema and edema in the soft tissue mass area plantar to the talonavicular joint. Due to the patient's neuropathy there is no pain. The temperature to the areas decreased. - Labs CBC & Chem 7: 10/24/17 08:23 10/24/17 08:23 Labs: Abnormal Lab Results - Last 24 Hours (Table) 10/24/17 10/24/17 Range/Units 08:23 08:23 WBC 14.8 H (3.8-10.6) k/uL RBC 4.14 L (4.30-5.90) m/uL Hgb 12.7 L (13.0-17.5) gm/dL Hct 38.3 L (39.0-53.0) % Chloride 111 H (98-107) mmol/L Carbon Dioxide 17 L (22-30) mmol/L Creatinine 1.67 H (0.66-1.25) mg/dL Microbiology - Last 24 Hours (Table) 10/21/17 20:30 Gram Stain - Final Aspirate Body Fluid Culture - Final Staphylococcus aureus 10/22/17 05:31 Blood Culture - Preliminary Blood No Growth after 48 hours Assessment and Plan Assessment: Bursitis hematoma plantar right foot Diabetic neuropathy bilateral with peripheral vascular disease Charcot joint disease stable bilateral Infected bursitis right foot Plan: Exam. Prior to taking the patient back to the surgical area remove the dressing and examined the foot. There is no counter indication to I&D of this foot based on culture results from the needle aspiration. It appears that this bursa hematoma area does contain staph aureus and may be the origin of patient' s septicemia. Discussed with patient I&D including complications prognosis risk aspect patient's. His cast with patient the need of incision and drainage to remove as much infected tissue and to resolve the life-threatening septicemia. Patient was told he may need several trips to the OR to remove any necrotic tissue or infected tissue. Discussed with patient the I&D that being opening of the wound and cleansing of any infected tissue and then packing to allow drainage. Once this is performed we'll apply a dressing and observe for response. If patient's responses good we'll close this secondarily. Patient understood same and will proceed with procedure.
--- NOTE | 2017-10-24 19:32 | P.PCN ---
Date of Procedure: 10/24/17 Preoperative Diagnosis: Infected bursitis hematoma right foot Postoperative Diagnosis: Same Procedure(s) Performed: Incision and drainage of infected bursa right foot Anesthesia: none Surgeon: Porfirio Jacome Estimated Blood Loss (ml): 10 Pathology: other Condition: stable Disposition: floor Indications for Procedure: Infected bursa right foot Operative Findings: Consistent with clinical findings Description of Procedure: Patient was brought to the OR are and was given sedation. The right foot was then prepped and draped in the usual aseptic manner no anesthesia was needed due to the patient's neuropathy. Attention was directed to the plantar aspect of the right foot where a 3 cm linear longitudinal incision was made medial to the plantar lesion borders. The wound was deepened through superficial and deep fascia. The wound then exposed a deep bursal hematoma and approximately 8 mL a hematogenous fluid was removed. This fluid was not organized and appeared to be a normal color and texture. The wound was then curetted of all necrotic tissue which was minimal. A deep tissue culture was taken. The cavity of the wound measured approximately 3 cm in diameter proximally medially and laterally and distally. Deep within the wound was a fibrous tissue lesion which was excised and retained for pathological evaluation. The wound was then pulse lavaged with 2000 mL of sterile saline with 1 g of vancomycin added. Long-Term through this lavaged the wound was inspected. At this time the hyperkeratotic tissue on the lateral border of the wound appeared to be raised from the lavaged. We inspected this area and a scant amount of white purulent material this material was less than 1 mL in volume. Using a 15 blade the hyperkeratotic lesion was then debrided. Central within this lesion was a very small 1 mm abscess extending into the bursa area. This area was then curetted to remove any necrotic tissue. We then continued to lavage the wound with the above solution with a proximally of thousand cc of the remaining fluid. The wound was then inspected and adequate reduction of the deformity was noted. The wound was then packed with half-inch iodoform gauze lightly and a dry sterile dressing was applied. Neurovascular status was maintained throughout the procedure. The patient was monitored until stable and transferred to the floor for continued care.
--- NOTE | 2017-10-24 20:34 | CONS ---
CONSULTATION The patient is a 57-year-old male with history of chronic kidney disease NKF stage 3 and he is status post simultaneous kidney pancreas transplant at [facility] in 1997. The patient's baseline creatinine has been at about 1.19- 1.3 mg/dL with last labs in June of 2017 showing creatinine of 1.19. Patient was admitted to the hospital with abdominal pain. The patient had a CT of the abdomen done with contrast and that showed no evidence of hydronephrosis. There was a cyst in the transplanted kidney. No stone was seen. Patient also has a right foot ulcer. He is being followed by ID and Podiatry. The patient has had a bedside I and D of the hematoma. He has been on IV vancomycin. The patient has been bacteremic with blood cultures growing Staph aureus in the MSSA and his wound culture also grew MSSA. Serum creatinine was 1.02 on initial admission. It has increased to 1.67 today. Patient has had good urine output. He is currently voiding in the urinal. Blood pressure has not been low, systolic blood pressure about 140-160. Currently, patient is maintained on IV fluids at 75 mL an hour and IV antibiotics. PAST MEDICAL HISTORY: Status post simultaneous kidney pancreas transplant for diabetes and end-stage renal disease, history of CKD stage 3 with baseline creatinine 1.0 from 1.3 mg/dL, ___ __ diabetic retinopathy, hyperlipidemia, peripheral neuropathy, history of hyperlipidemia as outpatient. ALLERGIES: INCLUDE PENICILLIN WHICH CAUSES A RASH. THE PATIENT IS ALSO ALLERGIC TO LATEX. SOCIAL HISTORY: Social history is noncontributory. MEDICATIONS: Medications at home prior to admission included Vasotec, Mevacor, CellCept, Procardia, prednisone, Prograf, vitamin D3, Cleocin, Zofran, folic acid. REVIEW OF SYSTEMS: As per HPI. Other systems negative. EXAMINATION: Patient is comfortable, awake, not in any acute distress. Blood pressure is 163 /79, heart rate 69 per minute. Patient is afebrile. Examination of the heart S1, S2. Examination of the lungs bilateral breath sounds are heard. Abdomen is soft, nontender. Examination of the lower extremities shows the right foot is now wrapped. [employer] exam is grossly intact. LAB DATA: Sodium 141, potassium 4.0, chloride 111, CO2 17, BUN 13, creatinine 1.27, hemoglobin 7.7 g/dL. Vancomycin level was 21, 4.8. UA shows 2+ protein, trace ketones, small blood. ASSESSMENT: 1. Acute kidney injury secondary to contrast nephropathy and sepsis with bacteremia, currently nonoliguric. Agree with discontinuation of SLY inhibitors for now. Continue with IV fluids and repeat labs in a.m. 2. Status post simultaneous kidney pancreas transplant. Baseline creatinine 1.0 to 1.2 mg/dL. Blood glucose is not elevated. There was 1 reading of 121 and amylase and lipase levels are within normal range as well. Continue current immunosuppression with Prograf, CellCept, and prednisone. 3. Right foot ulcer with wound culture growing MSSA. 4. MSSA bacteremia from right foot abscess. PLAN: Continue IV fluids. Continue off of SLY inhibitors. Avoid nephrotoxic agents. Repeat labs in a.m. Thank you for this consultation. We will continue to follow the patient with you during his hospitalization. MMODL / SHELLIN: [id number] / TOD
--- NOTE | 2017-10-24 20:35 | P.PN ---
Progress Note - Text Progress Note Date: 10/23/17 I was called by RN to evaluate patient, RN concerned regarding confusion. 57-year-old male with a past medical history of renal and pancreatic transplant , found to have sepsis and was started on IV fluids antibiotics and admitted for further care. Infectious disease, Gen. surgery, and podiatry were all consulted. Patient underwent a bedside I&D of hematoma and bursitis of the right foot. He was found to have a staph aureus bacteremia with presumptive staph infection in his right foot. He had been placed on IV vancomycin. Repeat blood cultures were taken on 10/22 which showed no growth for 24 hours. patient voices concerns regarding safety in the unit, he is oriented to place and time, he is oriented to situation, but voicing some delusional thoughts regarding someone who came in a stole the other bed, and being mistreated by staff (he stays in a private room and there was no second bed in his room) he is demanding to talk to security, be moved to a different floor, or even get discharged home. He did not allow me to examine him or do blood work, but after talking to him and getting the correctional security officer to talk to him, he finally agreed on staying awake in the room until morning to discuss again his options, as he realized that its is 4 in the morning now , and it would be difficult to get someone from his family to come and pick him up. patient remained calm at this time. still voicing concerns regarding safety in the unit. RN notified regarding elopement risk patient seems to have delerium blood culture showed staph aureus hudson sensitive, will discuss with ID, switching vancomycin to a less nephrotoxic antibiotic option if possible patient will need some blood work, and vital signs when he is calmer and allows the staff to do so this will be signed off to the morning team, may be consider neurology consult if persists, and possible CT of the head
[2017-10-24] MEDS: ATORVASTATIN 10 MG TAB PO SCH (21:30)
[2017-10-24] MEDS: LATANOPROST 0.005% OPHTH DROPS 2.5 ML BTL BOTH EYES SCH (21:34)
[2017-10-25] MEDS: ceFAZolin IN SWFI 2 GM/20 ML SYRINGE IVP SCH ×4 (00:18→23:43)
[2017-10-25 09:28] LABS: HGB 11.9 gm/dL (13.0-17.5); MCH 29.5 pg (25.0-35.0); MCHC 32.1 g/dL (31.0-37.0); Mean Platelet Volume 6.9; Platelet Count 411 k/uL (150-450); RBC 4.02 m/uL (4.30-5.90); RDW 15.1 % (11.5-15.5); WBC 12.3 k/uL (3.8-10.6)
[2017-10-25 09:42] LABS: Calcium 8.7 mg/dL (8.4-10.2); Potassium 4.1 mmol/L (3.5-5.1)
[2017-10-25] MEDS: BRIMONIDINE TARTRATE 0.2% DROPS 5 ML BTL BOTH EYES SCH ×2 (10:51→20:41)
[2017-10-25] MEDS: BACITRACIN 500 UNIT/GM OINT 28.4 GM TUBE TOPICAL SCH ×2 (10:51→20:41)
[2017-10-25] MEDS: TACROLIMUS 1 MG CAP PO SCH ×2 (10:51→20:40)
[2017-10-25] MEDS: MYCOPHENOLATE MOFETIL 500 MG TAB PO SCH ×2 (10:51→20:40)
[2017-10-25] MEDS: SODIUM CHLORIDE 0.45% 1,000 ML IV SCH ×2 (10:51→15:14)
[2017-10-25] MEDS: FOLIC ACID 1 MG TAB PO SCH (10:51)
[2017-10-25] MEDS: CHOLECALCIFEROL 1,000 UNIT TAB PO SCH (10:51)
[2017-10-25] MEDS: ASPIRIN 81 MG PO SCH (10:51)
[2017-10-25] MEDS: DORZOLAMIDE HCL 2% DROPS 10 ML BTL LEFT EYE SCH ×2 (10:52→20:41)
[2017-10-25] MEDS: predniSONE 5 MG TAB PO SCH (10:52)
[2017-10-25] MEDS: NIFEdipine XL 90 MG TAB.ER.24 PO SCH (10:52)
[2017-10-25] MEDS: PROPRANOLOL LA 80 MG CAP.SA.24H PO SCH (10:52)
[2017-10-25] MEDS: TIMOLOL 0.5% OPHTH DROPS 5 ML BTL BOTH EYES SCH ×2 (10:52→20:40)
[2017-10-25] MEDS: ENOXAPARIN 40 MG/0.4 ML SYRINGE SQ SCH (10:52)
[2017-10-25] MEDS: LACTOBACILLUS ACIDOPH & BULGAR 1 EACH PACKET PO SCH (15:10)
--- NOTE | 2017-10-25 16:27 | P.PN ---
Subjective Progress Note Date: 10/25/17 Principal diagnosis: Septic Bursitis Patient is a 57-year-old male with a past medical history of renal and pancreatic transplantation, hypertension, and dyslipidemia who presented to the hospital with complaints of fever and being sent in by his PCP for elevated white blood cell count. In the emergency department he underwent an extensive evaluation. His initial vital signs showed a fever of 100.7. Initial blood work showed a white blood cell count of 17.2., Sodium 133, CRP of 214.8. Urinalysis was essentially negative. He was found to have sepsis and was started on IV fluids antibiotics and admitted for further care. There was concern for possible osteomyelitis on his right fifth toe. Infectious disease, Gen. surgery, and podiatry were all consulted. Patient underwent a bedside I&D of hematoma and bursitis of the right foot. He was found to have a staph aureus bacteremia with presumptive staph infection in his right foot. He had been placed on IV vancomycin. Repeat blood cultures were taken on 10/22 which showed no growth for 48 hours. His blood cultures came back as MSSA and he was switched to cefazolin. He does have a port however was not able to be drawn back and therefore we were unable to obtain a culture. His white blood cell count went up on 10/24 and there was concern that he needed further debridement, incision and drainage of the infected bursa was performed by Dr. Jacome on 10/24. His creatinine also increased and his lisinopril and diuretics were held, he was started on IVF and nephrology was consulted. Patient seen and examined at bedside. He is feeling concerned about still being in the hospital, but wants to get treatment. Denies any nausea or vomiting. Did have 2 loose bowel movements. No fevers. No pain in his foot. No shortness of breath. Objective - Vital Signs Vital signs: Vital Signs Temp 98.7 F 10/25/17 15:00 Pulse 71 10/25/17 15:00 Resp 17 10/25/17 15:00 BP 144/72 10/25/17 15:00 Pulse Ox 97 10/25/17 15:00 Intake & Output 10/24/17 10/25/17 10/25/17 18:59 06:59 18:59 Intake Total 302 0 Output Total 400 10 Balance -98 -10 Intake: IV 102 0 Oral 200 Output: Urine 400 Estimated Blood Loss 10 Other: Voiding Method Urinal # Voids 1 3 # Bowel Movements 2 - Exam General: non toxic, no distress, appears older than stated age, gaunt Derm: warm, dry, dressing in place over right foot and ankle Head: atraumatic, normocephalic, symmetric Eyes: EOMI, no lid lag, anicteric sclera Mouth: no lip lesion, mucus membranes moist Cardiovascular: S1S2 reg, no murmur, positive posterior tibial pulse bilateral, Lungs: Decreased breath sounds bilateral bases, no rhonchi, no rales , no accessory muscle use Abdominal: soft, nontender to palpation, no guarding, no appreciable organomegaly Ext: no gross muscle atrophy, no edema, no contractures Neuro: CN II-XI grossly intact, no focal neuro deficits Psych: Alert, oriented, flat affect - Labs CBC & Chem 7: 10/25/17 08:30 10/25/17 08:30 Labs: Abnormal Lab Results - Last 24 Hours (Table) 10/25/17 10/25/17 Range/Units 08:30 08:30 WBC 12.3 H (3.8-10.6) k/uL RBC 4.02 L (4.30-5.90) m/uL Hgb 11.9 L (13.0-17.5) gm/dL Hct 37.0 L (39.0-53.0) % Chloride 113 H (98-107) mmol/L Carbon Dioxide 18 L (22-30) mmol/L Creatinine 1.55 H (0.66-1.25) mg/dL Microbiology - Last 24 Hours (Table) 10/22/17 05:31 Blood Culture - Preliminary Blood No Growth after 72 hours 10/24/17 18:51 Gram Stain - Preliminary Foot - Right Wound Culture - Preliminary 10/24/17 18:51 Gram Stain - Preliminary Foot - Right Wound Culture - Preliminary 10/24/17 18:51 Anaerobic Culture - Preliminary Foot - Right 10/24/17 18:51 Anaerobic Culture - Preliminary Foot - Right Assessment and Plan Assessment: Staph aureus Septic bursitis with staph aureus bacteremia with Charcot foot -Repeat blood cultures negative to date -Unable to obtain blood cultures from port secondary to no drawback -ID recommendations appreciated , waiting to speak with Dr. Guerrero -Vancomycin discontinued 10/23 and started on cefazolin -Status post I&D on 10/[address] Jacome -Likely will need outpatient IV antibiotics. Patient is concerned and states his mother will not be able to administer IV antibiotics at home, would prefer to go to a location to receive IV antibiotics and then home every day. Discussed with him that his current regiment would make this difficult. I'll discuss with infectious disease. He'll also discussed with patient possibility of rehabilitation Center if multiple time a day dosing regimen needed. ANA - ? secondary to acidosis consider sodium bicarb if acidosis does not improve with IVF -IV fluids changed to 0.45 normal saline -off vanco, hold lisinopril -Nephrology recommendations appreciated Hyperchloremic metabolic acidosis - Normal saline was change to 0.45 on 10/23 will increase rate. - Repeat blood work in a.m Immunosuppression secondary to pancreas and kidney transplant -Continue with CellCept, Prograf, and prednisone. -Vital signs stable and patient does not show signs of adrenal insufficiency Hypertension, controlled -Continue beta owen, SLY inhibitor, and calcium channel owen -Follow blood pressures Dyslipidemia -Continue statin DVT prophylaxis: Lovenox Discussed with: Patient, nursing, Dr. An Anticipated discharge: 10/[address]: home A total of 35 minutes was spent on the care of this complex patient more than 50 % of the time was spent in counseling and care coordination.
[2017-10-25] MEDS: ATORVASTATIN 10 MG TAB PO SCH (20:40)
[2017-10-25] MEDS: LATANOPROST 0.005% OPHTH DROPS 2.5 ML BTL BOTH EYES SCH (20:41)
--- NOTE | 2017-10-25 21:54 | PN ---
PROGRESS NOTE Patient is seen for followup for acute kidney injury. He is currently maintained on IV fluids and IV antibiotics for right foot wound. The patient is status post simultaneous kidney-pancreas transplant. His baseline creatinine is about 1-1.0 and it was at 1.67 yesterday. Patient states he has been voiding. This morning, creatinine is down to 1.5 mg/dL. EXAMINATION: Blood pressure is 144/72, heart rate 71 per minute. He is afebrile. HEART: S1, S2. LUNGS: Bilateral breath sounds are heard. Abdomen is soft, nontender. Lower extremities show no significant edema. His right foot is currently wrapped. LABS: Reveal sodium of 142, potassium 4.1, chloride 113, CO2 is 18, BUN 15, serum creatinine 1.5. Hemoglobin 11.9 g/dL. ASSESSMENT: 1. Acute kidney injury secondary to sepsis and bacteremia as well as contrast nephropathy from IV contrast for CT scan. Patient is currently nonoliguric with some improvement in renal function. I will continue with the IV fluids. Continue with the empiric antibiotics. Continue off of angiotensin-converting enzyme inhibitors and repeat labs in a.m. Continue with current immunosuppression as well. 2. Status post simultaneous kidney-pancreas transplant. Tacrolimus level was slightly low at 4.8. I will continue the current dose on the tacrolimus, given the ongoing infection, and we will repeat a level in about 1 week's time. 3. Proteinuria. I am not sure of this is new. We will check a the previous office records. Urinalysis on 10/03/2017 showed no protein. The urinalysis will be repeated. 4. Non anion gap metabolic acidosis. I will start the patient on oral sodium bicarb. 5. Right foot ulcer being followed by Surgery and it maintained on empiric antibiotics. Patient is also seen by Infectious Disease and Podiatry. 6. Methicillin-sensitive Staphylococcus aureus bacteremia. Repeat blood cultures, negative thus far. PLAN: Start oral sodium bicarb. Repeat labs in a.m. continue to avoid any nephrotoxic medications. We will repeat a tacrolimus level as outpatient. MMODL / IJN: [id number] /
--- NOTE | 2017-10-25 23:30 | P.PN ---
Subjective Progress Note Date: 10/25/17 57 -year-old male presented to Hospital from home with fever chills and malaise and worsening ulceration to his right foot plantar. He Was Admitted to Hospital And evaluated by the lead ramp service man and taken to the operating room for debridement of the abscess to his foot. Wound culture showed evidence of MSSA as has the blood culture. 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 He was due to be evaluated in [place] and that will have to be rescheduled. Further evaluation as been requested. Today the patient relates he's feeling considerably better his only concern is how he will ambulate after discharge. Objective - Vital Signs Vital signs: Vital Signs Temp 98.7 F 10/25/17 22:46 Pulse 62 10/25/17 22:46 Resp 17 10/25/17 22:46 BP 132/70 10/25/17 22:46 Pulse Ox 97 10/25/17 22:46 Intake & Output 10/25/17 10/25/17 10/26/17 06:59 18:59 06:59 Intake Total 0 Output Total 10 325 Balance -10 -325 Intake: IV 0 Output: Urine 325 Estimated Blood Loss 10 Other: Voiding Method Urinal # Voids 1 1 # Bowel Movements 2 - Exam Pleasant 57-year-old male not in distress HEENT: Anicteric conjunctiva are pink and moist nasal mucosa grossly intact without significant lesions, there is no thrush. Neck: The neck is supple without significant lymphadenopathy or thyromegaly. Lungs: Good bilateral air entry without significant crackles or wheezing. There is no significant bronchial sounds. There is no egophony or dullness. Heart: Regular rate and rhythm with an audible S1-S2, no S3 no S4. There is no significant murmur click or rub, PMI was nondisplaced. Abdomen: Positive bowel sounds soft and nontender without palpable masses or organomegaly. There was no guarding or rebound. Extremities: Upper extremities evidence of the changes from his underlying medical illnesses with some frailty to his hands. Similar to his feet the ulceration to the right foot has dressing in place which the surgeon does not want to change till tomorrow. Neuro: Awake alert oriented to person place and time. There are no acute new gross focal sensory motor deficits. - Labs CBC & Chem 7: 10/25/17 08:30 10/25/17 08:30 Labs: Abnormal Lab Results - Last 24 Hours (Table) 10/25/17 10/25/17 Range/Units 08:30 08:30 WBC 12.3 H (3.8-10.6) k/uL RBC 4.02 L (4.30-5.90) m/uL Hgb 11.9 L (13.0-17.5) gm/dL Hct 37.0 L (39.0-53.0) % Chloride 113 H (98-107) mmol/L Carbon Dioxide 18 L (22-30) mmol/L Creatinine 1.55 H (0.66-1.25) mg/dL Microbiology - Last 24 Hours (Table) 10/24/17 18:51 Gram Stain - Preliminary Foot - Right Wound Culture - Preliminary 10/22/17 05:31 Blood Culture - Preliminary Blood No Growth after 72 hours 10/24/17 18:51 Gram Stain - Preliminary Foot - Right Wound Culture - Preliminary 10/24/17 18:51 Anaerobic Culture - Preliminary Foot - Right 10/24/17 18:51 Anaerobic Culture - Preliminary Foot - Right Laboratory Results WBC 12.3 k/uL (3.8-10.6) H 10/25/17 08:30 RBC 4.02 m/uL (4.30-5.90) L 10/25/17 08:30 Hgb 11.9 gm/dL (13.0-17.5) L 10/25/17 08:30 Hct 37.0 % (39.0-53.0) L 10/25/17 08:30 MCV 92.0 fL (80.0-100.0) 10/25/17 08:30 MCH 29.5 pg (25.0-35.0) 10/25/17 08:30 MCHC 32.1 g/dL (31.0-37.0) 10/25/17 08:30 RDW 15.1 % (11.5-15.5) 10/25/17 08:30 Plt Count 411 k/uL (150-450) 10/25/17 08:30 Neutrophils % 85 % 10/21/17 07:59 Neutrophils % (Manual) 76 % 10/22/17 05:31 Band Neutrophils % 1 % 10/22/17 05:31 Lymphocytes % 6 % 10/21/17 07:59 Lymphocytes % (Manual) 6 % 10/22/17 05:31 Monocytes % 4 % 10/21/17 07:59 Monocytes % (Manual) 15 % 10/22/17 05:31 Eosinophils % 0 % 10/21/17 07:59 Eosinophils % (Manual) 1 % 10/22/17 05:31 Basophils % 0 % 10/21/17 07:59 Basophils % (Manual) 1 % 10/22/17 05:31 Neutrophils # 9.6 k/uL (1.3-7.7) H 10/21/17 07:59 Neutrophils # (Manual) 8.30 k/uL (1.3-7.7) H 10/22/17 05:31 Lymphocytes # 0.7 k/uL (1.0-4.8) L 10/21/17 07:59 Lymphocytes # (Manual) 0.65 k/uL (1.0-4.8) L 10/22/17 05:31 Monocytes # 0.5 k/uL (0-1.0) 10/21/17 07:59 Monocytes # (Manual) 1.62 k/uL (0-1.0) H 10/22/17 05:31 Eosinophils # 0.1 k/uL (0-0.7) 10/21/17 07:59 Eosinophils # (Manual) 0.11 k/uL (0-0.7) 10/22/17 05:31 Basophils # 0.0 k/uL (0-0.2) 10/21/17 07:59 Basophils # (Manual) 0.11 k/uL (0-0.2) 10/22/17 05:31 Nucleated RBCs 0 /100 WBC (0-0) 10/22/17 05:31 Manual Slide Review Performed 10/22/17 05:31 Polychromasia Present 10/20/17 14:47 ESR 28 mm/hr (0-15) H 10/20/17 19:08 PT 10.4 sec (9.0-12.0) 10/20/17 14:47 INR 1.1 (<1.2) 10/20/17 14:47 APTT 26.5 sec (22.0-30.0) 10/20/17 14:47 Sodium 142 mmol/L (137-145) 10/25/17 08:30 Potassium 4.1 mmol/L (3.5-5.1) 10/25/17 08:30 Chloride 113 mmol/L (98-107) H 10/25/17 08:30 Carbon Dioxide 18 mmol/L (22-30) L 10/25/17 08:30 Anion Gap 11 mmol/L 10/25/17 08:30 BUN 15 mg/dL (9-20) 10/25/17 08:30 Creatinine 1.55 mg/dL (0.66-1.25) H 10/25/17 08:30 Est GFR (CKD-EPI)AfAm 57 (>60 ml/min/1.73 sqM) 10/25/17 08:30 Est GFR (CKD-EPI)NonAf 50 (>60 ml/min/1.73 sqM) 10/25/17 08:30 Glucose 92 mg/dL (74-99) 10/25/17 08:30 Plasma Lactic Acid Lion 0.9 mmol/L (0.7-2.0) 10/20/17 14:47 Calcium 8.7 mg/dL (8.4-10.2) 10/25/17 08:30 Phosphorus 2.8 mg/dL (2.5-4.5) 10/21/17 07:59 Magnesium 1.8 mg/dL (1.6-2.3) 10/21/17 07:59 Total Bilirubin 0.4 mg/dL (0.2-1.3) 10/23/17 09:10 AST 36 U/L (17-59) 10/23/17 09:10 ALT 26 U/L (21-72) 10/23/17 09:10 Alkaline Phosphatase 65 U/L (38-126) 10/23/17 09:10 Troponin I 0.017 ng/mL (0.000-0.034) 10/20/17 14:47 C-Reactive Protein 214.8 mg/L (<10.0) H 10/20/17 Unknown Total Protein 6.1 g/dL (6.3-8.2) L 10/23/17 09:10 Albumin 3.5 g/dL (3.5-5.0) 10/23/17 09:10 Amylase 40 U/L (30-110) 10/21/17 07:59 Lipase 30 U/L (23-300) 10/21/17 07:59 Cortisol 18 ug/dL 10/20/17 14:47 Urine Color Yellow 10/20/17 15:51 Urine Appearance Clear (Clear) 10/20/17 15:51 Urine pH 6.0 (5.0-8.0) 10/20/17 15:51 Ur Specific Hanna 1.017 (1.001-1.035) 10/20/17 15:51 Urine Protein 2+ (Negative) H 10/20/17 15:51 Urine Glucose (UA) Negative (Negative) 10/20/17 15:51 Urine Ketones 2+ (Negative) H 10/20/17 15:51 Urine Blood Small (Negative) H 10/20/17 15:51 Urine Nitrite Negative (Negative) 10/20/17 15:51 Urine Bilirubin Negative (Negative) 10/20/17 15:51 Urine Urobilinogen <2.0 mg/dL (<2.0) 10/20/17 15:51 Ur Leukocyte Esterase Negative (Negative) 10/20/17 15:51 Urine RBC 1 /hpf (0-5) 10/20/17 15:51 Urine WBC 1 /hpf (0-5) 10/20/17 15:51 Ur Squamous Epith Cells <1 /hpf (0-4) 10/20/17 15:51 Urine Bacteria Rare /hpf (None) H 10/20/17 15:51 Hyaline Casts 1 /lpf (0-2) 10/20/17 15:51 Urine Mucus Occasional /hpf (None) H 10/20/17 15:51 Vancomycin Trough 21.0 ug/mL 10/22/17 05:31 Tacrolimus 4.8 ng/mL (5.0-20.0) L 10/20/17 14:47 Microbiology 10/24/17 18:51 Foot - Right Gram Stain - Preliminary 10/24/17 18:51 Foot - Right Wound Culture - Preliminary 10/22/17 05:31 Blood Blood Culture - Preliminary No Growth after 72 hours 10/24/17 18:51 Foot - Right Gram Stain - Preliminary 10/24/17 18:51 Foot - Right Wound Culture - Preliminary 10/24/17 18:51 Foot - Right Anaerobic Culture - Preliminary 10/24/17 18:51 Foot - Right Anaerobic Culture - Preliminary 10/21/17 20:30 Aspirate Gram Stain - Final 10/21/17 20:30 Aspirate Body Fluid Culture - Final Staphylococcus aureus 10/20/17 14:47 Blood Blood Culture Gram Stain - Final 10/20/17 14:47 Blood Blood Culture - Final Staphylococcus aureus 10/20/17 15:51 Urine,Voided Urine Culture - Final 10/20/17 14:47 Blood Blood Culture - Final Assessment and Plan (1) Sepsis Current Visit: Yes Status: Acute Code(s): A41.9 - SEPSIS, UNSPECIFIED ORGANISM SNOMED Code(s): 92307956 (2) MSSA bacteremia Narrative/Plan: 57-year-old male presents to Hospital feeling very poorly having the onset of abscess to his right foot plantar. He has had a surgical incision and drainage and debridement this site. In overall he has now showing marked improvement. He is being ready for discharge home. The near future. At admission the culture from the foot showed evidence of MSSA as well as the blood culture. The follow-up blood cultures are negative. He has a port that is early in place and does not appear to be any source of infection at this time. Consequently make arrangements for outpatient intravenous antibiotic therapy, patient relates to a preference of coming to office to receive his infusions. Orders are sent to [facility] to evaluate coverage. Patient relates his mother would be able to bring him to the office on a daily basis. Given MSSA Rocephin can be utilized for once daily dosing. His acute renal failure is improving. Podiatry will help us determine wound care and offloading to the foot at discharge. Likely ready for discharge home in a day or 2. Overall goal is to have further normalization of his renal failure Current Visit: Yes Status: Acute Code(s): R78.81 - BACTEREMIA SNOMED Code( s): 851894064 (3) History of simultaneous kidney and pancreas transplant Current Visit: Yes Status: Acute Code(s): Z94.0 - KIDNEY TRANSPLANT STATUS; Z94.83 - PANCREAS TRANSPLANT STATUS SNOMED Code(s): 772175353 (4) Acute renal failure Current Visit: Yes Status: Acute Code(s): N17.9 - ACUTE KIDNEY FAILURE, UNSPECIFIED SNOMED Code(s): 48030991
[2017-10-26] MEDS: SODIUM CHLORIDE 0.45% 1,000 ML IV SCH ×2 (06:50→17:36)
[2017-10-26 08:01] LABS: Basophils # (A) 0.1 k/uL (0-0.2); Basophils % (A) 1 %; Eosinophils # (A) 0.4 k/uL (0-0.7); Eosinophils % (A) 3 %; HCT 37.8 % (39.0-53.0); HGB 12.4 gm/dL (13.0-17.5); Lymphocytes # (A) 2.3 k/uL (1.0-4.8); Lymphocytes % (A) 18 %; MCH 29.8 pg (25.0-35.0); MCHC 32.7 g/dL (31.0-37.0); MCV 91.3 fL (80.0-100.0); Mean Platelet Volume 6.7; Monocytes # (A) 1.1 k/uL (0-1.0); Monocytes % (A) 8 %; Neutrophils % (A) 68 %; Platelet Count 485 k/uL (150-450); RBC 4.15 m/uL (4.30-5.90); RDW 15.4 % (11.5-15.5); WBC 13.3 k/uL (3.8-10.6)
--- NOTE | 2017-10-26 08:38 | P.PN ---
Subjective Progress Note Date: 10/26/17 Principal diagnosis: Infected bursitis right foot diabetic neuropathy and Charcot joint disease Subjective seen at bedside resting comfortably. Patient voices no complaints Objective - Vital Signs Vital signs: Vital Signs Temp 97.9 F 10/26/17 06:02 Pulse 68 10/26/17 06:02 Resp 17 10/26/17 06:02 BP 145/71 10/26/17 06:02 Pulse Ox 97 10/26/17 06:02 Intake & Output 10/25/17 10/26/17 10/26/17 18:59 06:59 18:59 Output Total 325 650 Balance -325 -650 Output: Urine 325 650 Other: Voiding Method Urinal # Voids 1 # Bowel Movements 2 - Integumentary Integumentary Comment(s): The incision site shows no necrosis edges are well developed with good vascular supply. Tissue shows no erythema no edema no increased temperature. There is no purulence noted. - Labs CBC & Chem 7: 10/26/17 07:40 10/25/17 08:30 Labs: Abnormal Lab Results - Last 24 Hours (Table) 10/25/17 10/25/17 10/26/17 Range/Units 08:30 08:30 07:40 WBC 12.3 H 13.3 H (3.8-10.6) k/uL RBC 4.02 L 4.15 L (4.30-5.90) m/uL Hgb 11.9 L 12.4 L (13.0-17.5) gm/dL Hct 37.0 L 37.8 L (39.0-53.0) % Plt Count 485 H (150-450) k/uL Neutrophils # 9.0 H (1.3-7.7) k/uL Monocytes # 1.1 H (0-1.0) k/uL Chloride 113 H (98-107) mmol/L Carbon Dioxide 18 L (22-30) mmol/L Creatinine 1.55 H (0.66-1.25) mg/dL Microbiology - Last 24 Hours (Table) 10/22/17 05:31 Blood Culture - Preliminary Blood No Growth after 96 hours 10/24/17 18:51 Gram Stain - Preliminary Foot - Right Wound Culture - Preliminary 10/24/17 18:51 Gram Stain - Preliminary Foot - Right Wound Culture - Preliminary Assessment and Plan Assessment: Bursitis hematoma plantar right foot Diabetic neuropathy bilateral with peripheral vascular disease Charcot joint disease stable bilateral Infected bursitis right foot Plan: Exam. Today we removed the dry sterile dressing as well as the iodoform packing. The wound looks clear with resolving infection. Reapplied dry sterile dressing. Plan later today to close the area secondarily at bedside. We'll have patient have physical therapy training for nonweightbearing with walker. We'll see if we can supply the patient with a offloading shoe for discharge. Have patient return to the clinic in approximately 10 days for reevaluation as an outpatient. At this time I see no reason from a podiatric or surgical standpoint for further inpatient care.
[2017-10-26 08:53] LABS: Albumin 2.9 g/dL (3.5-5.0); Calcium 8.8 mg/dL (8.4-10.2); Potassium 4.2 mmol/L (3.5-5.1); Total Bilirubin 0.2 mg/dL (0.2-1.3); Total Protein 5.3 g/dL (6.3-8.2)
[2017-10-26] MEDS: PROPRANOLOL LA 80 MG CAP.SA.24H PO SCH (09:39)
[2017-10-26] MEDS: FOLIC ACID 1 MG TAB PO SCH (09:39)
[2017-10-26] MEDS: MYCOPHENOLATE MOFETIL 500 MG TAB PO SCH ×2 (09:39→20:02)
[2017-10-26] MEDS: TACROLIMUS 1 MG CAP PO SCH ×2 (09:39→20:02)
[2017-10-26] MEDS: CHOLECALCIFEROL 1,000 UNIT TAB PO SCH (09:39)
[2017-10-26] MEDS: SODIUM BICARBONATE TAB 650 MG TAB PO SCH ×2 (09:39→20:04)
[2017-10-26] MEDS: ASPIRIN 81 MG PO SCH (09:39)
[2017-10-26] MEDS: NIFEdipine XL 90 MG TAB.ER.24 PO SCH (09:39)
[2017-10-26] MEDS: predniSONE 5 MG TAB PO SCH (09:39)
[2017-10-26] MEDS: ENOXAPARIN 40 MG/0.4 ML SYRINGE SQ SCH (09:40)
[2017-10-26] MEDS: TIMOLOL 0.5% OPHTH DROPS 5 ML BTL BOTH EYES SCH ×2 (09:40→20:03)
[2017-10-26] MEDS: BRIMONIDINE TARTRATE 0.2% DROPS 5 ML BTL BOTH EYES SCH ×2 (09:40→20:03)
[2017-10-26] MEDS: ceFAZolin IN SWFI 2 GM/20 ML SYRINGE IVP SCH ×3 (09:40→23:05)
[2017-10-26] MEDS: LACTOBACILLUS ACIDOPH & BULGAR 1 EACH PACKET PO SCH ×2 (09:40→16:19)
[2017-10-26] MEDS: DORZOLAMIDE HCL 2% DROPS 10 ML BTL LEFT EYE SCH ×2 (09:42→20:02)
[2017-10-26] MEDS: BACITRACIN 500 UNIT/GM OINT 28.4 GM TUBE TOPICAL SCH ×2 (09:48→20:02)
--- NOTE | 2017-10-26 12:59 | P.PCN ---
Date of Procedure: 10/26/17 Preoperative Diagnosis: Infected bursa right foot Postoperative Diagnosis: Same Procedure(s) Performed: Late primary closure right foot incision and drainage abscess Anesthesia: none Surgeon: Porfirio Jacome Estimated Blood Loss (ml): 5 Pathology: none sent Condition: stable Disposition: no change Indications for Procedure: Postoperative following incision and drainage of infected bursa right foot Operative Findings: Sterile clinical findings Description of Procedure: Infected bursal hematoma of the right foot. Prior to closure a consent and timeout was performed discussing the closure with patient and discussing complications prognosis risk expectations and alternative care. The foot was prepped with DuraPrep in the usual aseptic manner. He was then directed to the plantar aspect of the foot where the wound was opened and no necrotic tissue was noted. Was flushed with sterile saline copiously using a proximally 300 mL. Wound was closed in layers using 4-0 nylon simple interrupted sutures. Was then dressed with a mildly compressive dressingg patient tolerated procedure well and can be discharged with this dressing. Was given adequate dressings two-maintain dressing changes as needed over the next 2 week period. He is to return to clinic outpatient for follow-up care.
[2017-10-26 15:29] VITALS: BMI 23.6
--- NOTE | 2017-10-26 15:34 | PN ---
PROGRESS NOTE Patient is seen for followup for acute kidney injury which was associated with underlying infection and contrast nephropathy and some degree of volume depletion. The patient's renal function has improved. His creatinine is down to 1.3 from 1.6. Overall, he states he is feeling better. PHYSICAL EXAMINATION: Blood pressure is 132/70 last night. This morning 145/71, heart rate 68 per minute. He is afebrile. Examination of the heart S1, S2. Examination of the lungs bilateral breath sounds are heard. Abdomen is soft, nontender. Exam of lower extremities shows right foot currently is wrapped. No significant edema is noted in the left leg. CORPORATE ADMINISTRATIVE ASSISTANT exam is grossly intact. Patient moving all 4 extremities. LAB: Show sodium 144, potassium 4.2, BUN 15, serum creatinine 1.3, hemoglobin 12.4 g/dL. ASSESSMENT: 1. Acute kidney injury secondary to contrast nephropathy and underlying sepsis and bacteremia, currently improved. The patient is maintained on IV fluids. He is off of his SLY inhibitors. There are no other nephrotoxic agents on board. The patient is stable for discharge from Nephrology standpoint. 2. Right foot wound and cellulitis with wound culture growing MSSA. 3. Bacteremia with MSSA. Repeat blood cultures are negative. 4. Status post simultaneous kidney pancreas transplant. Continue current dose of immunosuppression. We will repeat the levels as outpatient. PLAN: The patient can be discharged with follow up as outpatient in about 1 week's time and we will obtain a proteinuria workup and repeat UA as outpatient as previously the patient did not have significant proteinuria. MMODL / IJN: [id number] /
--- NOTE | 2017-10-26 17:12 | P.PN ---
Subjective Progress Note Date: 10/26/17 (delayed charting seen at 1100) Principal diagnosis: Septic Bursitis Patient is a 57-year-old male with a past medical history of renal and pancreatic transplantation, hypertension, and dyslipidemia who presented to the hospital with complaints of fever and being sent in by his PCP for elevated white blood cell count. In the emergency department he underwent an extensive evaluation. His initial vital signs showed a fever of 100.7. Initial blood work showed a white blood cell count of 17.2., Sodium 133, CRP of 214.8. Urinalysis was essentially negative. He was found to have sepsis and was started on IV fluids antibiotics and admitted for further care. There was concern for possible osteomyelitis on his right fifth toe. Infectious disease, Gen. surgery, and podiatry were all consulted. Patient underwent a bedside I&D of hematoma and bursitis of the right foot. He was found to have a staph aureus bacteremia with presumptive staph infection in his right foot. He had been placed on IV vancomycin. Repeat blood cultures were taken on 10/22 which showed no growth for 48 hours. His blood cultures came back as MSSA and he was switched to cefazolin. He does have a port however was not able to be drawn back and therefore we were unable to obtain a culture. His white blood cell count went up on 10/24 and there was concern that he needed further debridement, incision and drainage of the infected bursa was performed by Dr. Jacome on 10/24. His creatinine also increased and his lisinopril and diuretics were held, he was started on IVF and nephrology was consulted. His renal function has begun to improve with diuretics being held. He started having loos bowel movements and was started on lactobacillus. Patient seen and examined at bedside. Frustrated about still being in the hospital. understands that we are working on making arrangements for him to receive outpatient IV abx. Loose Bowel Movements are improving. No chest pain or shortness of breath. Appetite is slowly getting better. Family is concerned about cost of outpatient IV abx and we are currently working on a solution for the cost barrier. He will remain here receiving IV abx until we can be assured that he will get outpatient IV abx. Objective - Vital Signs Vital signs: Vital Signs Temp 98.5 F 10/26/17 14:20 Pulse 74 10/26/17 14:20 Resp 16 10/26/17 15:53 BP 132/73 10/26/17 14:20 Pulse Ox 95 10/26/17 14:20 Intake & Output 10/25/17 10/26/17 10/26/17 18:59 06:59 18:59 Intake Total 1000 Output Total 325 650 700 Balance -325 -650 300 Weight 70.307 kg Intake: Oral 1000 Output: Urine 325 650 700 Other: Voiding Method Urinal # Voids 1 # Bowel Movements 2 - Exam General: non toxic, no distress, appears older than stated age, gaunt, periorbital edema Derm: warm, dry, dressing in place over right foot and ankle Head: atraumatic, normocephalic, symmetric Eyes: EOMI, no lid lag, anicteric sclera Mouth: no lip lesion, mucus membranes moist Cardiovascular: S1S2 reg, no murmur, positive posterior tibial pulse bilateral, Lungs: Decreased breath sounds bilateral bases, no rhonchi, no rales , no accessory muscle use Abdominal: soft, nontender to palpation, no guarding, no appreciable organomegaly Ext: no gross muscle atrophy, no edema, no contractures Neuro: CN II-XI grossly intact, no focal neuro deficits Psych: Alert, oriented, flat affect - Labs CBC & Chem 7: 10/26/17 07:40 10/26/17 07:40 Labs: Abnormal Lab Results - Last 24 Hours (Table) 10/26/17 10/26/17 Range/Units 07:40 07:40 WBC 13.3 H (3.8-10.6) k/uL RBC 4.15 L (4.30-5.90) m/uL Hgb 12.4 L (13.0-17.5) gm/dL Hct 37.8 L (39.0-53.0) % Plt Count 485 H (150-450) k/uL Neutrophils # 9.0 H (1.3-7.7) k/uL Monocytes # 1.1 H (0-1.0) k/uL Chloride 113 H (98-107) mmol/L Carbon Dioxide 21 L (22-30) mmol/L Creatinine 1.30 H (0.66-1.25) mg/dL Total Protein 5.3 L (6.3-8.2) g/dL Albumin 2.9 L (3.5-5.0) g/dL Microbiology - Last 24 Hours (Table) 10/22/17 05:31 Blood Culture - Preliminary Blood No Growth after 96 hours 10/24/17 18:51 Gram Stain - Preliminary Foot - Right Wound Culture - Preliminary Assessment and Plan Assessment: MSSA Septic bursitis with MSSA bacteremia with Charcot foot - WBC increased slightly 10/26 -Repeat blood cultures negative -Unable to obtain blood cultures from port secondary to no drawback -ID recommendations appreciated , plan is for outpatient Rocephin for 4 weeks. Attempting to find a cost affective way to administer ABX as outpatient to ensure he completes treatment. -Vancomycin discontinued 10/23 and started on cefazolin -Status post I&D on 10/[address] Jacome ANA, improving - ? secondary to acidosis consider sodium bicarb if acidosis does not improve with IVF -IV fluids 0.45 NS decreased -off vanco, hold lisinopril -Nephrology recommendations appreciated Hyperchloremic metabolic acidosis - 0.45 NS, chloride still elevated acidosis is improving. - Repeat blood work in a.m Immunosuppression secondary to pancreas and kidney transplant -Continue with CellCept, Prograf, and prednisone. -Vital signs stable and patient does not show signs of adrenal insufficiency Hypertension, controlled -Continue beta owen, SLY inhibitor, and calcium channel owen -Follow blood pressures Dyslipidemia -Continue statin sepsis, resolving DVT prophylaxis: Lovenox Discussed with: Patient, nursing, Anticipated discharge: 10/[address]: home A total of 35 minutes was spent on the care of this complex patient more than 50 % of the time was spent in counseling and care coordination.
[2017-10-26] MEDS: ATORVASTATIN 10 MG TAB PO SCH (20:02)
[2017-10-26] MEDS: LATANOPROST 0.005% OPHTH DROPS 2.5 ML BTL BOTH EYES SCH (20:03)
--- NOTE | 2017-10-26 23:25 | P.PN ---
Subjective Progress Note Date: 10/26/17 57 -year-old male presented to Hospital from home with fever chills and malaise and worsening ulceration to his right foot plantar. He Was Admitted to Hospital And evaluated by the bed setter and taken to the operating room for debridement of the abscess to his foot. Wound culture showed evidence of MSSA as has the blood culture. 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 He was due to be evaluated in [place] and that will have to be rescheduled. Further evaluation as been requested. Today the patient relates he's feeling considerably better his only concern is how he will ambulate after discharge. 10/26/2017 wound was evaluated by podiatry and was improved and dressed. Patient denies new problems and has good urine output with out discomfort. Objective - Vital Signs Vital signs: Vital Signs Temp 98.5 F 10/26/17 14:20 Pulse 74 10/26/17 14:20 Resp 16 10/26/17 15:53 BP 132/73 10/26/17 14:20 Pulse Ox 95 10/26/17 14:20 Intake & Output 10/26/17 10/26/17 10/27/17 06:59 18:59 06:59 Intake Total 1000 Output Total 650 950 Balance -650 50 Weight 70.307 kg Intake: Oral 1000 Output: Urine 650 950 Other: Voiding Method Urinal - Exam Pleasant 57-year-old male not in distress HEENT: Anicteric conjunctiva are pink and moist nasal mucosa grossly intact without significant lesions, there is no thrush. Neck: The neck is supple without significant lymphadenopathy or thyromegaly. Lungs: Good bilateral air entry without significant crackles or wheezing. There is no significant bronchial sounds. There is no egophony or dullness. Heart: Regular rate and rhythm with an audible S1-S2, no S3 no S4. There is no significant murmur click or rub, PMI was nondisplaced. Abdomen: Positive bowel sounds soft and nontender without palpable masses or organomegaly. There was no guarding or rebound. Extremities: Upper extremities evidence of the changes from his underlying medical illnesses with some frailty to his hands. Similar to his feet the ulceration to the right foot has dressing in place which the surgeon does not want to change till tomorrow. Neuro: Awake alert oriented to person place and time. There are no acute new gross focal sensory motor deficits. - Labs CBC & Chem 7: 10/26/17 07:40 10/26/17 07:40 Labs: Abnormal Lab Results - Last 24 Hours (Table) 10/26/17 10/26/17 Range/Units 07:40 07:40 WBC 13.3 H (3.8-10.6) k/uL RBC 4.15 L (4.30-5.90) m/uL Hgb 12.4 L (13.0-17.5) gm/dL Hct 37.8 L (39.0-53.0) % Plt Count 485 H (150-450) k/uL Neutrophils # 9.0 H (1.3-7.7) k/uL Monocytes # 1.1 H (0-1.0) k/uL Chloride 113 H (98-107) mmol/L Carbon Dioxide 21 L (22-30) mmol/L Creatinine 1.30 H (0.66-1.25) mg/dL Total Protein 5.3 L (6.3-8.2) g/dL Albumin 2.9 L (3.5-5.0) g/dL Microbiology - Last 24 Hours (Table) 10/24/17 18:51 Gram Stain - Preliminary Foot - Right Wound Culture - Preliminary Presumptive Staph aureus 10/24/17 18:51 Gram Stain - Final Foot - Right Wound Culture - Final 10/22/17 05:31 Blood Culture - Preliminary Blood No Growth after 96 hours Laboratory Results WBC 13.3 k/uL (3.8-10.6) H 10/26/17 07:40 RBC 4.15 m/uL (4.30-5.90) L 10/26/17 07:40 Hgb 12.4 gm/dL (13.0-17.5) L 10/26/17 07:40 Hct 37.8 % (39.0-53.0) L 10/26/17 07:40 MCV 91.3 fL (80.0-100.0) 10/26/17 07:40 MCH 29.8 pg (25.0-35.0) 10/26/17 07:40 MCHC 32.7 g/dL (31.0-37.0) 10/26/17 07:40 RDW 15.4 % (11.5-15.5) 10/26/17 07:40 Plt Count 485 k/uL (150-450) H 10/26/17 07:40 Neutrophils % 68 % 10/26/17 07:40 Neutrophils % (Manual) 76 % 10/22/17 05:31 Band Neutrophils % 1 % 10/22/17 05:31 Lymphocytes % 18 % 10/26/17 07:40 Lymphocytes % (Manual) 6 % 10/22/17 05:31 Monocytes % 8 % 10/26/17 07:40 Monocytes % (Manual) 15 % 10/22/17 05:31 Eosinophils % 3 % 10/26/17 07:40 Eosinophils % (Manual) 1 % 10/22/17 05:31 Basophils % 1 % 10/26/17 07:40 Basophils % (Manual) 1 % 10/22/17 05:31 Neutrophils # 9.0 k/uL (1.3-7.7) H 10/26/17 07:40 Neutrophils # (Manual) 8.30 k/uL (1.3-7.7) H 10/22/17 05:31 Lymphocytes # 2.3 k/uL (1.0-4.8) 10/26/17 07:40 Lymphocytes # (Manual) 0.65 k/uL (1.0-4.8) L 10/22/17 05:31 Monocytes # 1.1 k/uL (0-1.0) H 10/26/17 07:40 Monocytes # (Manual) 1.62 k/uL (0-1.0) H 10/22/17 05:31 Eosinophils # 0.4 k/uL (0-0.7) 10/26/17 07:40 Eosinophils # (Manual) 0.11 k/uL (0-0.7) 10/22/17 05:31 Basophils # 0.1 k/uL (0-0.2) 10/26/17 07:40 Basophils # (Manual) 0.11 k/uL (0-0.2) 10/22/17 05:31 Nucleated RBCs 0 /100 WBC (0-0) 10/22/17 05:31 Manual Slide Review Performed 10/22/17 05:31 Polychromasia Present 10/20/17 14:47 ESR 28 mm/hr (0-15) H 10/20/17 19:08 PT 10.4 sec (9.0-12.0) 10/20/17 14:47 INR 1.1 (<1.2) 10/20/17 14:47 APTT 26.5 sec (22.0-30.0) 10/20/17 14:47 Sodium 144 mmol/L (137-145) 10/26/17 07:40 Potassium 4.2 mmol/L (3.5-5.1) 10/26/17 07:40 Chloride 113 mmol/L (98-107) H 10/26/17 07:40 Carbon Dioxide 21 mmol/L (22-30) L 10/26/17 07:40 Anion Gap 10 mmol/L 10/26/17 07:40 BUN 15 mg/dL (9-20) 10/26/17 07:40 Creatinine 1.30 mg/dL (0.66-1.25) H 10/26/17 07:40 Est GFR (CKD-EPI)AfAm 71 (>60 ml/min/1.73 sqM) 10/26/17 07:40 Est GFR (CKD-EPI)NonAf 62 (>60 ml/min/1.73 sqM) 10/26/17 07:40 Glucose 83 mg/dL (74-99) 10/26/17 07:40 Plasma Lactic Acid Lion 0.9 mmol/L (0.7-2.0) 10/20/17 14:47 Calcium 8.8 mg/dL (8.4-10.2) 10/26/17 07:40 Phosphorus 2.8 mg/dL (2.5-4.5) 10/21/17 07:59 Magnesium 1.8 mg/dL (1.6-2.3) 10/21/17 07:59 Total Bilirubin 0.2 mg/dL (0.2-1.3) 10/26/17 07:40 AST 29 U/L (17-59) 10/26/17 07:40 ALT 23 U/L (21-72) 10/26/17 07:40 Alkaline Phosphatase 49 U/L (38-126) 10/26/17 07:40 Troponin I 0.017 ng/mL (0.000-0.034) 10/20/17 14:47 C-Reactive Protein 214.8 mg/L (<10.0) H 10/20/17 Unknown Total Protein 5.3 g/dL (6.3-8.2) L 10/26/17 07:40 Albumin 2.9 g/dL (3.5-5.0) L 10/26/17 07:40 Amylase 40 U/L (30-110) 10/21/17 07:59 Lipase 30 U/L (23-300) 10/21/17 07:59 Cortisol 18 ug/dL 10/20/17 14:47 Urine Color Yellow 10/20/17 15:51 Urine Appearance Clear (Clear) 10/20/17 15:51 Urine pH 6.0 (5.0-8.0) 10/20/17 15:51 Ur Specific [place] 1.017 (1.001-1.035) 10/20/17 15:51 Urine Protein 2+ (Negative) H 10/20/17 15:51 Urine Glucose (UA) Negative (Negative) 10/20/17 15:51 Urine Ketones 2+ (Negative) H 10/20/17 15:51 Urine Blood Small (Negative) H 10/20/17 15:51 Urine Nitrite Negative (Negative) 10/20/17 15:51 Urine Bilirubin Negative (Negative) 10/20/17 15:51 Urine Urobilinogen <2.0 mg/dL (<2.0) 10/20/17 15:51 Ur Leukocyte Esterase Negative (Negative) 10/20/17 15:51 Urine RBC 1 /hpf (0-5) 10/20/17 15:51 Urine WBC 1 /hpf (0-5) 10/20/17 15:51 Ur Squamous Epith Cells <1 /hpf (0-4) 10/20/17 15:51 Urine Bacteria Rare /hpf (None) H 10/20/17 15:51 Hyaline Casts 1 /lpf (0-2) 10/20/17 15:51 Urine Mucus Occasional /hpf (None) H 10/20/17 15:51 Vancomycin Trough 21.0 ug/mL 10/22/17 05:31 Tacrolimus 4.8 ng/mL (5.0-20.0) L 10/20/17 14:47 Microbiology 10/24/17 18:51 Foot - Right Gram Stain - Preliminary 10/24/17 18:51 Foot - Right Wound Culture - Preliminary Presumptive Staph aureus 10/24/17 18:51 Foot - Right Gram Stain - Final 10/24/17 18:51 Foot - Right Wound Culture - Final 10/22/17 05:31 Blood Blood Culture - Preliminary No Growth after 96 hours 10/24/17 18:51 Foot - Right Anaerobic Culture - Preliminary 10/24/17 18:51 Foot - Right Anaerobic Culture - Preliminary 10/21/17 20:30 Aspirate Gram Stain - Final 10/21/17 20:30 Aspirate Body Fluid Culture - Final Staphylococcus aureus 10/20/17 14:47 Blood Blood Culture Gram Stain - Final 10/20/17 14:47 Blood Blood Culture - Final Staphylococcus aureus 10/20/17 15:51 Urine,Voided Urine Culture - Final 10/20/17 14:47 Blood Blood Culture - Final Assessment and Plan (1) Sepsis Current Visit: Yes Status: Acute Code(s): A41.9 - SEPSIS, UNSPECIFIED ORGANISM SNOMED Code(s): 40286571 (2) MSSA bacteremia Narrative/Plan: 57-year-old male presents to Hospital feeling very poorly having the onset of abscess to his right foot plantar. He has had a surgical incision and drainage and debridement this site. In overall he has now showing marked improvement. He is being ready for discharge home. The near future. At admission the culture from the foot showed evidence of MSSA as well as the blood culture. The follow-up blood cultures are negative. He has a port that is early in place and does not appear to be any source of infection at this time. Consequently make arrangements for outpatient intravenous antibiotic therapy, patient relates to a preference of coming to office to receive his infusions. Orders are sent to [facility] to evaluate coverage. Patient relates his mother would be able to bring him to the office on a daily basis. Given MSSA Rocephin can be utilized for once daily dosing. His acute renal failure is improving. Podiatry will help us determine wound care and offloading to the foot at discharge. Likely ready for discharge home in a day or 2. Overall goal is to have further normalization of his renal failure 10/26/2017 has further improvement today with Cr down to 1.30. Will continue to work towards discharge with outpatient IV antibiotic therapy. Foot is improved and will follow with Podiatry as outpatient Current Visit: Yes Status: Acute Code(s): R78.81 - BACTEREMIA SNOMED Code( s): 347717031 (3) History of simultaneous kidney and pancreas transplant Current Visit: Yes Status: Acute Code(s): Z94.0 - KIDNEY TRANSPLANT STATUS; Z94.83 - PANCREAS TRANSPLANT STATUS SNOMED Code(s): 634946534 (4) Acute renal failure Current Visit: Yes Status: Acute Code(s): N17.9 - ACUTE KIDNEY FAILURE, UNSPECIFIED SNOMED Code(s): 06696594
[2017-10-27 07:52] LABS: HCT 35.9 % (39.0-53.0); HGB 11.7 gm/dL (13.0-17.5); MCH 30.1 pg (25.0-35.0); MCHC 32.7 g/dL (31.0-37.0); MCV 91.9 fL (80.0-100.0); Mean Platelet Volume 6.8; Platelet Count 478 k/uL (150-450); RBC 3.91 m/uL (4.30-5.90); RDW 15.2 % (11.5-15.5); WBC 13.6 k/uL (3.8-10.6)
[2017-10-27 08:06] LABS: Calcium 8.8 mg/dL (8.4-10.2)
[2017-10-27] MEDS: LACTOBACILLUS ACIDOPH & BULGAR 1 EACH PACKET PO SCH ×2 (09:06→17:28)
[2017-10-27] MEDS: FOLIC ACID 1 MG TAB PO SCH (09:06)
[2017-10-27] MEDS: SODIUM BICARBONATE TAB 650 MG TAB PO SCH ×2 (09:07→20:10)
[2017-10-27] MEDS: ENOXAPARIN 40 MG/0.4 ML SYRINGE SQ SCH (09:07)
[2017-10-27] MEDS: TACROLIMUS 1 MG CAP PO SCH ×2 (09:07→20:10)
[2017-10-27] MEDS: CHOLECALCIFEROL 1,000 UNIT TAB PO SCH (09:07)
[2017-10-27] MEDS: NIFEdipine XL 90 MG TAB.ER.24 PO SCH (09:07)
[2017-10-27] MEDS: PROPRANOLOL LA 80 MG CAP.SA.24H PO SCH (09:07)
[2017-10-27] MEDS: predniSONE 5 MG TAB PO SCH (09:07)
[2017-10-27] MEDS: ASPIRIN 81 MG PO SCH (09:07)
[2017-10-27] MEDS: MYCOPHENOLATE MOFETIL 500 MG TAB PO SCH ×2 (09:07→20:10)
[2017-10-27] MEDS: TIMOLOL 0.5% OPHTH DROPS 5 ML BTL BOTH EYES SCH ×2 (09:08→20:11)
[2017-10-27] MEDS: BRIMONIDINE TARTRATE 0.2% DROPS 5 ML BTL BOTH EYES SCH ×2 (09:08→20:11)
[2017-10-27] MEDS: ceFAZolin IN SWFI 2 GM/20 ML SYRINGE IVP SCH (10:23)
[2017-10-27] MEDS: BACITRACIN 500 UNIT/GM OINT 28.4 GM TUBE TOPICAL SCH ×2 (10:23→20:13)
--- NOTE | 2017-10-27 11:56 | P.PN ---
Subjective Progress Note Date: 10/27/17 Principal diagnosis: Septic Bursitis Patient is a 57-year-old male with a past medical history of renal and pancreatic transplantation, hypertension, and dyslipidemia who presented to the hospital with complaints of fever and being sent in by his PCP for elevated white blood cell count. In the emergency department he underwent an extensive evaluation. His initial vital signs showed a fever of 100.7. Initial blood work showed a white blood cell count of 17.2., Sodium 133, CRP of 214.8. Urinalysis was essentially negative. He was found to have sepsis and was started on IV fluids antibiotics and admitted for further care. There was concern for possible osteomyelitis on his right fifth toe. Infectious disease, Gen. surgery, and podiatry were all consulted. Patient underwent a bedside I&D of hematoma and bursitis of the right foot. He was found to have a staph aureus bacteremia with presumptive staph infection in his right foot. He had been placed on IV vancomycin. Repeat blood cultures were taken on 10/22 which showed no growth for 48 hours. His blood cultures came back as MSSA and he was switched to cefazolin. He does have a port however was not able to be drawn back and therefore we were unable to obtain a culture. His white blood cell count went up on 10/24 and there was concern that he needed further debridement, incision and drainage of the infected bursa was performed by Dr. Jacome on 10/24. His creatinine also increased and his lisinopril and diuretics were held, he was started on IVF and nephrology was consulted. His renal function has begun to improve with diuretics being held. He started having loose bowel movements and was started on lactobacillus. Patient seen and examined at bedside. Feeling well today. No complaints currently. Concerned that his kidney function is not getting any better. No nausea or vomiting. No diarrhea, 1 BM in the last 24 hours. Objective - Vital Signs Vital signs: Vital Signs Temp 98.8 F 10/27/17 06:12 Pulse 71 10/27/17 06:12 Resp 16 10/27/17 06:12 BP 170/77 10/27/17 06:12 Pulse Ox 92 L 10/27/17 06:12 Intake & Output 10/26/17 10/27/17 10/27/17 18:59 06:59 18:59 Intake Total 1000 200 Output Total 950 1300 Balance 50 -1300 200 Weight 70.307 kg Intake: Oral 1000 200 Output: Urine 950 1300 Other: Voiding Method Urinal - Exam General: non toxic, no distress, appears older than stated age, gaunt, pleasant Derm: warm, dry, dressing in place over right foot and ankle Head: atraumatic, normocephalic, symmetric Eyes: EOMI, no lid lag, anicteric sclera Mouth: no lip lesion, mucus membranes moist Cardiovascular: S1S2 reg, no murmur, positive posterior tibial pulse bilateral, Lungs: Decreased breath sounds bilateral bases, no rhonchi, no rales , no accessory muscle use Abdominal: soft, nontender to palpation, no guarding, no appreciable organomegaly Ext: no gross muscle atrophy, no edema, no contractures Neuro: CN II-XI grossly intact, no focal neuro deficits Psych: Alert, oriented, flat affect - Labs CBC & Chem 7: 10/27/17 07:27 10/27/17 07:27 Labs: Abnormal Lab Results - Last 24 Hours (Table) 10/27/17 10/27/17 Range/Units 07:27 07:27 WBC 13.6 H (3.8-10.6) k/uL RBC 3.91 L (4.30-5.90) m/uL Hgb 11.7 L (13.0-17.5) gm/dL Hct 35.9 L (39.0-53.0) % Plt Count 478 H (150-450) k/uL Chloride 110 H (98-107) mmol/L Creatinine 1.38 H (0.66-1.25) mg/dL Microbiology - Last 24 Hours (Table) 10/22/17 05:31 Blood Culture - Preliminary Blood No Growth after 120 hours 10/24/17 18:51 Anaerobic Culture - Preliminary Foot - Right 10/24/17 18:51 Anaerobic Culture - Preliminary Foot - Right 10/24/17 18:51 Gram Stain - Preliminary Foot - Right Wound Culture - Preliminary Presumptive Staph aureus 10/24/17 18:51 Gram Stain - Final Foot - Right Wound Culture - Final Assessment and Plan Assessment: MSSA Septic bursitis with MSSA bacteremia with Charcot foot -Repeat blood cultures negative -Unable to obtain blood cultures from port secondary to no drawback -ID recommendations appreciated , plan is for outpatient Rocephin for 4 weeks. Attempting to find a cost affective way to administer ABX as outpatient to ensure he completes treatment. -Vancomycin discontinued 10/23 and started on cefazolin transitioned to rocephin for discharge -Status post I&D on 10/[address] Jacome. Needs follow-up in office in 10 days ANA, improving - ? 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 -Vital signs stable and patient does not show signs of adrenal insufficiency Hypertension, controlled -Continue beta owen, SLY inhibitor, and calcium channel owen -Follow blood pressures Dyslipidemia -Continue statin sepsis, resolving DVT prophylaxis: Lovenox Discussed with: Patient, nursing, CM Anticipated discharge: 10/[address]: home A total of 25 minutes was spent on the care of this complex patient more than 50 % of the time was spent in counseling and care coordination.
--- NOTE | 2017-10-27 13:54 | PN ---
PROGRESS NOTE Patient is seen for followup for acute kidney injury. He is admitted with the right foot wound. His renal function has improved. Patient denies any significant complaints. He is maintained on IV antibiotics. PHYSICAL EXAMINATION: Blood pressure is elevated 170/77, heart rate of 94 per minute. Patient is afebrile. Examination of the heart, S1, S2. Examination of the lungs, bilateral breath sounds are heard. Abdomen is soft, nontender. Examination of the lower extremities shows no significant edema. Right foot is currently wrapped. LABS: Show sodium 142, potassium 4.0, BUN 17, serum creatinine 1.38, hemoglobin 11.7 g/dL. ASSESSMENT: 1. Acute kidney injury secondary to contrast nephropathy, underlying sepsis and bacteremia, currently improved. Patient's creatinine is down to 1.3 and 1.38. I will stop the IV fluids as he is eating well. The blood pressure is elevated as well. 2. Hypertension. Continue current antihypertensive medications. I will discontinue the saline. If blood pressure remains elevated, we will need to add another agent. Procardia is already at 90 and the patient is also on propranolol at 80. Heart rate is not significantly low. We can choose between Coreg or hydralazine, but hopefully we do not have to add another agent. 3. Right foot wound with septic bursitis and methicillin-sensitive Staphylococcus aureus bacteremia with wound cultures also growing MSSA, maintained on cefazolin being followed by Infectious Disease. 4. Metabolic acidosis, currently on sodium bicarbonate. 5. Status post simultaneous kidney, pancreas transplant. Continue current immunosuppression. PLAN: Discontinue IV fluids. Repeat labs in a.m.. MMODL / IJN: [id number] /
[2017-10-27] MEDS: cefTRIAXone IN SWFI 2,000 MG/20 ML SYRINGE IVP SCH (17:28)
[2017-10-27] MEDS: DORZOLAMIDE HCL 2% DROPS 10 ML BTL LEFT EYE SCH ×2 (17:29→20:12)
[2017-10-27] MEDS: ATORVASTATIN 10 MG TAB PO SCH (20:10)
[2017-10-27] MEDS: LATANOPROST 0.005% OPHTH DROPS 2.5 ML BTL BOTH EYES SCH (20:11)
--- NOTE | 2017-10-27 23:05 | P.PN ---
Subjective Progress Note Date: 10/27/17 57 -year-old male presented to Hospital from home with fever chills and malaise and worsening ulceration to his right foot plantar. He Was Admitted to Hospital And evaluated by the mixing house operator and taken to the operating room for debridement of the abscess to his foot. Wound culture showed evidence of MSSA as has the blood culture. 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 He was due to be evaluated in [place] and that will have to be rescheduled. Further evaluation as been requested. Today the patient relates he's feeling considerably better his only concern is how he will ambulate after discharge. 10/26/2017 wound was evaluated by podiatry and was improved and dressed. Patient denies new problems and has good urine output with out discomfort. 10/27/2017 the patient is feeling better today. Looks forward to being able to transition to the outpatient arena to complete his 4 weeks of antibiotic therapy for his MSSA sepsis and bacteremia. No new complaints today. The foot wound is without significant pain and denies any fevers or chills. Objective - Vital Signs Vital signs: Vital Signs Temp 97.6 F 10/27/17 15:00 Pulse 71 10/27/17 15:00 Resp 17 10/27/17 15:00 BP 126/63 10/27/17 15:00 Pulse Ox 96 10/27/17 15:00 Intake & Output 10/27/17 10/27/17 10/28/17 06:59 18:59 06:59 Intake Total 850 Output Total 1300 Balance -1300 850 Weight 70.307 kg Intake: Intake, IV Titration 450 Amount Sodium Chloride 0.45% 1, 400 000 ml @ 50 mls/hr IV . Q20H [facility] Rx#:[id number] cefTRIAXone 2,000 mg In 50 Sodium Chloride 0.9% 50 ml @ 100 mls/hr IVPB Q24HR [facility] Rx#:[id number] Oral 400 Output: Urine 1300 Other: Voiding Method Urinal Urinal - Exam Pleasant 57-year-old male not in distress HEENT: Anicteric conjunctiva are pink and moist nasal mucosa grossly intact without significant lesions, there is no thrush. Neck: The neck is supple without significant lymphadenopathy or thyromegaly. Lungs: Good bilateral air entry without significant crackles or wheezing. There is no significant bronchial sounds. There is no egophony or dullness. Heart: Regular rate and rhythm with an audible S1-S2, no S3 no S4. There is no significant murmur click or rub, PMI was nondisplaced. Abdomen: Positive bowel sounds soft and nontender without palpable masses or organomegaly. There was no guarding or rebound. Extremities: Upper extremities evidence of the changes from his underlying medical illnesses with some frailty to his hands. the ulceration to the right foot has dressing in place which was placed by the surgeon. Neuro: Awake alert oriented to person place and time. There are no acute new gross focal sensory motor deficits. - Labs CBC & Chem 7: 10/27/17 07:27 10/27/17 07:27 Labs: Abnormal Lab Results - Last 24 Hours (Table) 10/27/17 10/27/17 Range/Units 07: 07:27 WBC 13.6 H (3.8-10.6) k/uL RBC 3.91 L (4.30-5.90) m/uL Hgb 11.7 L (13.0-17.5) gm/dL Hct 35.9 L (39.0-53.0) % Plt Count 478 H (150-450) k/uL Chloride 110 H (98-107) mmol/L Creatinine 1.38 H (0.66-1.25) mg/dL Microbiology - Last 24 Hours (Table) 10/24/17 18:51 Gram Stain - Final Foot - Right Wound Culture - Final Staphylococcus aureus 10/22/17 05:31 Blood Culture - Preliminary Blood No Growth after 120 hours 10/24/17 18:51 Anaerobic Culture - Preliminary Foot - Right 10/24/17 18:51 Anaerobic Culture - Preliminary Foot - Right Laboratory Results WBC 13.6 k/uL (3.8-10.6) H 10/27/17 07:27 RBC 3.91 m/uL (4.30-5.90) L 10/27/17 07:27 Hgb 11.7 gm/dL (13.0-17.5) L 10/27/17 07:27 Hct 35.9 % (39.0-53.0) L 10/27/17 07:27 MCV 91.9 fL (80.0-100.0) 10/27/17 07:27 MCH 30.1 pg (25.0-35.0) 10/27/17 07:27 MCHC 32.7 g/dL (31.0-37.0) 10/27/17 07:27 RDW 15.2 % (11.5-15.5) 10/27/17 07:27 Plt Count 478 k/uL (150-450) H 10/27/17 07:27 Neutrophils % 68 % 10/26/17 07:40 Neutrophils % (Manual) 76 % 10/22/17 05:31 Band Neutrophils % 1 % 10/22/17 05:31 Lymphocytes % 18 % 10/26/17 07:40 Lymphocytes % (Manual) 6 % 10/22/17 05:31 Monocytes % 8 % 10/26/17 07:40 Monocytes % (Manual) 15 % 10/22/17 05:31 Eosinophils % 3 % 10/26/17 07:40 Eosinophils % (Manual) 1 % 10/22/17 05:31 Basophils % 1 % 10/26/17 07:40 Basophils % (Manual) 1 % 10/22/17 05:31 Neutrophils # 9.0 k/uL (1.3-7.7) H 10/26/17 07:40 Neutrophils # (Manual) 8.30 k/uL (1.3-7.7) H 10/22/17 05:31 Lymphocytes # 2.3 k/uL (1.0-4.8) 10/26/17 07:40 Lymphocytes # (Manual) 0.65 k/uL (1.0-4.8) L 10/22/17 05:31 Monocytes # 1.1 k/uL (0-1.0) H 10/26/17 07:40 Monocytes # (Manual) 1.62 k/uL (0-1.0) H 10/22/17 05:31 Eosinophils # 0.4 k/uL (0-0.7) 10/26/17 07:40 Eosinophils # (Manual) 0.11 k/uL (0-0.7) 10/22/17 05:31 Basophils # 0.1 k/uL (0-0.2) 10/26/17 07:40 Basophils # (Manual) 0.11 k/uL (0-0.2) 10/22/17 05:31 Nucleated RBCs 0 /100 WBC (0-0) 10/22/17 05:31 Manual Slide Review Performed 10/22/17 05:31 Polychromasia Present 10/20/17 14:47 ESR 28 mm/hr (0-15) H 10/20/17 19:08 PT 10.4 sec (9.0-12.0) 10/20/17 14:47 INR 1.1 (<1.2) 10/20/17 14:47 APTT 26.5 sec (22.0-30.0) 10/20/17 14:47 Sodium 142 mmol/L (137-145) 10/27/17 07:27 Potassium 4.0 mmol/L (3.5-5.1) 10/27/17 07:27 Chloride 110 mmol/L (98-107) H 10/27/17 07:27 Carbon Dioxide 25 mmol/L (22-30) 10/27/17 07:27 Anion Gap 7 mmol/L 10/27/17 07:27 BUN 17 mg/dL (9-20) 10/27/17 07:27 Creatinine 1.38 mg/dL (0.66-1.25) H 10/27/17 07:27 Est GFR (CKD-EPI)AfAm 66 (>60 ml/min/1.73 sqM) 10/27/17 07:27 Est GFR (CKD-EPI)NonAf 57 (>60 ml/min/1.73 sqM) 10/27/17 07:27 Glucose 87 mg/dL (74-99) 10/27/17 07:27 Plasma Lactic Acid Lion 0.9 mmol/L (0.7-2.0) 10/20/17 14:47 Calcium 8.8 mg/dL (8.4-10.2) 10/27/17 07:27 Phosphorus 2.8 mg/dL (2.5-4.5) 10/21/17 07:59 Magnesium 1.8 mg/dL (1.6-2.3) 10/21/17 07:59 Total Bilirubin 0.2 mg/dL (0.2-1.3) 10/26/17 07:40 AST 29 U/L (17-59) 10/26/17 07:40 ALT 23 U/L (21-72) 10/26/17 07:40 Alkaline Phosphatase 49 U/L (38-126) 10/26/17 07:40 Troponin I 0.017 ng/mL (0.000-0.034) 10/20/17 14:47 C-Reactive Protein 214.8 mg/L (<10.0) H 10/20/17 Unknown Total Protein 5.3 g/dL (6.3-8.2) L 10/26/17 07:40 Albumin 2.9 g/dL (3.5-5.0) L 10/26/17 07:40 Amylase 40 U/L (30-110) 10/21/17 07:59 Lipase 30 U/L (23-300) 10/21/17 07:59 Cortisol 18 ug/dL 10/20/17 14:47 Urine Color Yellow 10/20/17 15:51 Urine Appearance Clear (Clear) 10/20/17 15:51 Urine pH 6.0 (5.0-8.0) 10/20/17 15:51 Ur Specific [place] 1.017 (1.001-1.035) 10/20/17 15:51 Urine Protein 2+ (Negative) H 10/20/17 15:51 Urine Glucose (UA) Negative (Negative) 10/20/17 15:51 Urine Ketones 2+ (Negative) H 10/20/17 15:51 Urine Blood Small (Negative) H 10/20/17 15:51 Urine Nitrite Negative (Negative) 10/20/17 15:51 Urine Bilirubin Negative (Negative) 10/20/17 15:51 Urine Urobilinogen <2.0 mg/dL (<2.0) 10/20/17 15:51 Ur Leukocyte Esterase Negative (Negative) 10/20/17 15:51 Urine RBC 1 /hpf (0-5) 10/20/17 15:51 Urine WBC 1 /hpf (0-5) 10/20/17 15:51 Ur Squamous Epith Cells <1 /hpf (0-4) 10/20/17 15:51 Urine Bacteria Rare /hpf (None) H 10/20/17 15:51 Hyaline Casts 1 /lpf (0-2) 10/20/17 15:51 Urine Mucus Occasional /hpf (None) H 10/20/17 15:51 Vancomycin Trough 21.0 ug/mL 10/22/17 05:31 Tacrolimus 4.8 ng/mL (5.0-20.0) L 10/20/17 14:47 Microbiology 10/24/17 18:51 Foot - Right Gram Stain - Final 10/24/17 18:51 Foot - Right Wound Culture - Final Staphylococcus aureus 10/22/17 05:31 Blood Blood Culture - Preliminary No Growth after 120 hours 10/24/17 18:51 Foot - Right Anaerobic Culture - Preliminary 10/24/17 18:51 Foot - Right Anaerobic Culture - Preliminary 10/24/17 18:51 Foot - Right Gram Stain - Final 10/24/17 18:51 Foot - Right Wound Culture - Final 10/21/17 20:30 Aspirate Gram Stain - Final 10/21/17 20:30 Aspirate Body Fluid Culture - Final Staphylococcus aureus 10/20/17 14:47 Blood Blood Culture Gram Stain - Final 10/20/17 14:47 Blood Blood Culture - Final Staphylococcus aureus 10/20/17 15:51 Urine,Voided Urine Culture - Final 10/20/17 14:47 Blood Blood Culture - Final Assessment and Plan (1) Sepsis Current Visit: Yes Status: Acute Code(s): A41.9 - SEPSIS, UNSPECIFIED ORGANISM SNOMED Code(s): 67441784 (2) MSSA bacteremia Narrative/Plan: 57-year-old male presents to Hospital feeling very poorly having the onset of abscess to his right foot plantar. He has had a surgical incision and drainage and debridement this site. In overall he has now showing marked improvement. He is being ready for discharge home. The near future. At admission the culture from the foot showed evidence of MSSA as well as the blood culture. The follow-up blood cultures are negative. He has a port that is early in place and does not appear to be any source of infection at this time. Consequently make arrangements for outpatient intravenous antibiotic therapy, patient relates to a preference of coming to office to receive his infusions. Orders are sent to [facility] to evaluate coverage. Patient relates his mother would be able to bring him to the office on a daily basis. Given MSSA Rocephin can be utilized for once daily dosing. His acute renal failure is improving. Podiatry will help us determine wound care and offloading to the foot at discharge. Likely ready for discharge home in a day or 2. Overall goal is to have further normalization of his renal failure 10/26/2017 has further improvement today with Cr down to 1.30. Will continue to work towards discharge with outpatient IV antibiotic therapy. Foot is improved and will follow with Podiatry as outpatient 10/27/2017 continues to have overall improvement. Creatinine is stable at 1.39. He is eating and drinking well. No difficulty with the antibiotic therapy looks were to discharge after his treatment tomorrow to complete his outpatient regimen. With the blood work will be requested and follow up with his transplant center when he is stable. Current Visit: Yes Status: Acute Code(s): R78.81 - BACTEREMIA SNOMED Code( s): 685998294 (3) History of simultaneous kidney and pancreas transplant Current Visit: Yes Status: Acute Code(s): Z94.0 - KIDNEY TRANSPLANT STATUS; Z94.83 - PANCREAS TRANSPLANT STATUS SNOMED Code(s): 022725889 (4) Acute renal failure Current Visit: Yes Status: Acute Code(s): N17.9 - ACUTE KIDNEY FAILURE, UNSPECIFIED SNOMED Code(s): 89248675
[2017-10-28 05:55] VITALS: BP 131/65; PULSE 68; RESP 15; TEMP 98.5
[2017-10-28] MEDS: BACITRACIN 500 UNIT/GM OINT 28.4 GM TUBE TOPICAL SCH (08:28)
[2017-10-28] MEDS: FOLIC ACID 1 MG TAB PO SCH (08:29)
[2017-10-28] MEDS: predniSONE 5 MG TAB PO SCH (08:30)
[2017-10-28] MEDS: PROPRANOLOL LA 80 MG CAP.SA.24H PO SCH (08:30)
[2017-10-28] MEDS: SODIUM BICARBONATE TAB 650 MG TAB PO SCH (08:30)
[2017-10-28] MEDS: cefTRIAXone IN SWFI 2,000 MG/20 ML SYRINGE IVP SCH (08:30)
[2017-10-28] MEDS: NIFEdipine XL 90 MG TAB.ER.24 PO SCH (08:30)
[2017-10-28] MEDS: ENOXAPARIN 40 MG/0.4 ML SYRINGE SQ SCH (08:30)
[2017-10-28] MEDS: TACROLIMUS 1 MG CAP PO SCH (08:30)
[2017-10-28] MEDS: CHOLECALCIFEROL 1,000 UNIT TAB PO SCH (08:30)
[2017-10-28] MEDS: LACTOBACILLUS ACIDOPH & BULGAR 1 EACH PACKET PO SCH (08:30)
[2017-10-28] MEDS: ASPIRIN 81 MG PO SCH (08:30)
[2017-10-28] MEDS: MYCOPHENOLATE MOFETIL 500 MG TAB PO SCH (08:30)
[2017-10-28] MEDS: BRIMONIDINE TARTRATE 0.2% DROPS 5 ML BTL BOTH EYES SCH (08:31)
[2017-10-28] MEDS: DORZOLAMIDE HCL 2% DROPS 10 ML BTL LEFT EYE SCH (08:31)
[2017-10-28] MEDS: TIMOLOL 0.5% OPHTH DROPS 5 ML BTL BOTH EYES SCH (08:31)
--- NOTE | 2017-10-28 11:26 | PN ---
PROGRESS NOTE The patient is seen for followup for acute kidney injury with history of simultaneous kidney pancreas transplant. The patient is doing well. He denies any significant complaints. He was admitted for right foot wounds. PHYSICAL EXAMINATION: On examination, blood pressure is 131/65, heart rate 68 per minute. Patient is afebrile. EXAMINATION OF THE HEART: S1, S2. EXAMINATION OF THE LUNGS: Bilateral breath sounds are heard. Abdomen is soft, nontender. Examination of the lower extremity shows right foot currently wrapped. LABS: Labs show sodium 142, potassium 4.0, serum creatinine 1.38 from yesterday. Hemoglobin was 11.7 yesterday. ASSESSMENT: 1. Acute kidney injury associated with contrast administration as well as sepsis, currently improved. 2. Status post simultaneous kidney pancreas transplant. Continue current immunosuppression. 3. Right foot wound/ulcer, maintained on antibiotics. 4. Metabolic acidosis, currently on oral sodium bicarb. PLAN: Patient is stable for discharge from Nephrology standpoint. He will need followup as outpatient. Continue with the sodium bicarb for now. MMODL / IJN: [id number] /
--- NOTE | 2017-10-28 12:00 | P.DS ---
Providers Date of admission: 10/20/17 18:41 Expected date of discharge: 10/28/17 Attending physician: Arun Guy MD Consults: 10/20/17 18:55 Consult Physician Routine Consulting Provider: Abdirahman Morales Consult Reason/Comments: Wound care Do you want consulting provider notified?: Yes 10/21/17 08:49 Consult Physician Routine Consulting Provider: Carlos Sow Consult Reason/Comments: UTI Do you want consulting provider notified?: Yes 10/21/17 14:15 Consult Physician Urgent Consulting Provider: Porfirio Jacome Consult Reason/Comments: right foot possible abscess for draiange Do you want consulting provider notified?: Yes 10/21/17 15:05 Consult Physician Routine Consulting Provider: Scott Garg Consult Reason/Comments: PVOD, charcot foot Do you want consulting provider notified?: Yes 10/24/17 11:18 Consult Physician Routine Consulting Provider: Ashli An Consult Reason/Comments: ANA Do you want consulting provider notified?: Yes Primary care physician: [facility] Course: Discharge diagnosis: MSSA septic bursitis with charcot foot MSSA bacteremia sepsis ANA Hyperchloremic metabolic acidosis proteinuria Immunosupression due to kidney and renal transplant HTN HLD History of present illness: Patient is a 57-year-old male with a past medical history of renal and pancreatic transplantation, hypertension, and dyslipidemia who presented to the hospital with complaints of fever and being sent in by his PCP for elevated white blood cell count. In the emergency department he underwent an extensive evaluation. His initial vital signs showed a fever of 100.7. Initial blood work showed a white blood cell count of 17.2., Sodium 133, CRP of 214.8. Urinalysis was essentially negative. He was found to have sepsis and was started on IV fluids antibiotics and admitted for further care. There was concern for possible osteomyelitis on his right fifth toe. Infectious disease, Gen. surgery, and podiatry were all consulted. Patient underwent a bedside I&D of hematoma and bursitis of the right foot. He was found to have a staph aureus bacteremia with presumptive staph infection in his right foot. He had been placed on IV vancomycin. Repeat blood cultures were taken on 10/22 which showed no growth for 48 hours. His blood cultures came back as MSSA and he was switched to cefazolin. He does have a port however was not able to be drawn back and therefore we were unable to obtain a culture. His white blood cell count went up on 10/24 and there was concern that he needed further debridement, incision and drainage of the infected bursa was performed by Dr. Jacome on 10/24. His creatinine also increased and his lisinopril was held, he was started on IVF and nephrology was consulted. His renal function has begun to improve with IVF. He started having loose bowel movements and was started on lactobacillus which improved his bowel movements. Arrangements were made for outpatient antibiotics with once daily rocephin to complete 4 weeks of antibiotics. He will need to be nonweight bearing on his right lower extremity and he worked with physical therapy and did well with the walker. He will follow-up with Dr. Jacome in 10 days for repeat evaluation. He will follow with Dr. Guerrero in 1 week. He was also started on bicarb due to his acidosis and will follow-up with Dr. An in 2 weeks. He will stay on lactobacillus until his antibiotics are completed. Patient seen and examined at bedside. Feeling well. Bowel movements are improving. No chest pain, nausea, vomiting, or shortness of breath. Vital signs reviewed and stable. General: non toxic, no distress, appears at stated age Derm: warm, dry Head: atraumatic, normocephalic, symmetric Eyes: EOMI, no lid lag, anicteric sclera Mouth: no lip lesion, mucus membranes moist Cardiovascular: S1S2 reg, no murmur, positive posterior tibial pulse bilateral, Lungs: CTA bilateral, no rhonchi, no rales , no accessory muscle use Abdominal: soft, nontender to palpation, no guarding, no appreciable organomegaly Ext: no gross muscle atrophy, no edema, no contractures, right lower extremity with dressing in place. Neuro: CN II-XI grossly intact, no focal neuro deficits Psych: Alert, oriented, appropriate affect A total of 45 minutes of time were spent preparing this complex discharge summary . Pertinent Studies: MRI foot- 4.2 CM mass, suspected fluid collection Procedures: 10/27 primary closure of foot I and D 10/24 I and D of infected bursa right foot 10/21 Needle aspiration of bursitis Patient Condition at Discharge: Stable Plan - Discharge Summary New Discharge Prescriptions: New cefTRIAXone [Rocephin] 2,000 mg IVP Q24HR #28 ml Bacitracin Oint 1 applic TOPICAL BID #14 applic Lactobacillus Acidoph & Bulgar [Lactinex] 1 each PO 0800,1600 #30 packet Sodium Bicarbonate Tab 650 mg PO BID #60 tab Continue predniSONE 5 mg PO DAILY NIFEdipine XL [Procardia XL] 90 mg PO DAILY Lovastatin [Mevacor] 20 mg PO HS Mycophenolate Mofetil [Cellcept] 500 mg PO BID Enalapril [Vasotec] 20 mg PO BID Brimonidine Tartrate/Timolol [Combigan 0.2%/0.5% Ophth Soln] 1 drop BOTH EYES BID Bimatoprost [Lumigan .01% Ophth Soln] 1 drop BOTH EYES HS Aspirin 81 mg PO DAILY Multivitamin [Men's Multi-Vitamin] 1 tab PO DAILY Tacrolimus [Prograf] 1 mg PO BID Propranolol HCl [Inderal Xl] 80 mg PO DAILY Dorzolamide 2% [Trusopt 2%] 1 drops LEFT EYE BID Cholecalciferol [Vitamin D3] 1,000 unit PO DAILY Folic Acid 1 mg PO DAILY Ondansetron HCl [Zofran] 4 mg PO TID PRN PRN Reason: Nausea Discontinued Clindamycin HCl [Cleocin] 300 mg PO TID Discharge Medication List Aspirin 81 mg PO DAILY 09/27/13 [History] Bimatoprost [Lumigan .01% Ophth Soln] 1 drop BOTH EYES HS 09/27/13 [History] Brimonidine Tartrate/Timolol [Combigan 0.2%/0.5% Ophth Soln] 1 drop BOTH EYES BID 09/27/13 [History] Enalapril [Vasotec] 20 mg PO BID 09/27/13 [History] Lovastatin [Mevacor] 20 mg PO HS 09/27/13 [History] Multivitamin [Men's Multi-Vitamin] 1 tab PO DAILY 09/27/13 [History] Mycophenolate Mofetil [Cellcept] 500 mg PO BID 09/27/13 [History] NIFEdipine XL [Procardia XL] 90 mg PO DAILY 09/27/13 [History] predniSONE 5 mg PO DAILY 09/27/13 [History] Tacrolimus [Prograf] 1 mg PO BID 01/03/14 [History] Cholecalciferol [Vitamin D3] 1,000 unit PO DAILY 12/02/14 [History] Dorzolamide 2% [Trusopt 2%] 1 drops LEFT EYE BID 12/02/14 [History] Propranolol HCl [Inderal Xl] 80 mg PO DAILY 12/02/14 [History] Folic Acid 1 mg PO DAILY 10/20/17 [History] Ondansetron HCl [Zofran] 4 mg PO TID PRN 10/20/17 [History] cefTRIAXone [Rocephin] 2,000 mg IVP Q24HR #28 ml 10/25/17 [Rx] Bacitracin Oint 1 applic TOPICAL BID #14 applic 10/28/17 [Rx] Lactobacillus Acidoph & Bulgar [Lactinex] 1 each PO 0800,1600 #30 packet [Rx] Sodium Bicarbonate Tab 650 mg PO BID #60 tab 10/28/17 [Rx] Follow up Appointment(s)/Referral(s): David Tejeda MD [Primary Care Provider] - 1-2 days Ambulatory/Diagnostic Orders: Miscellaneous Lab Order [LAB.AMB] Location: None Selected Basic Metabolic Panel [LAB.AMB] Location: None Selected Complete Blood Count w/diff [LAB.AMB] Location: None Selected Activity/Diet/Wound Care/Special Instructions: Antibiotic administration arranged daily to start Monday at 9:45 am at ' s [facility] office: #[phone]
== END 2017-10-28 12:27 | disposition home or self-care (01) | DRG 854 ==
LOC: EC 13:39 → 4MS4W 18:41
PROVIDERS: ADMIT Family Medicine; ATTEND Family Medicine
PROC: 0J9Q3ZX Drainage of Right Foot Subcutaneous Tissue and Fascia, Percutaneous Approach, Diagnostic (ICD-10-PCS; 2017-10-21)
PROC: 0JBQ0ZZ Excision of Right Foot Subcutaneous Tissue and Fascia, Open Approach (ICD-10-PCS; principal; 2017-10-24 09:00)
PROC: 0JQQ0ZZ Repair Right Foot Subcutaneous Tissue and Fascia, Open Approach (ICD-10-PCS; 2017-10-26)
DX: A41.01 Sepsis due to Methicillin susceptible Staphylococcus aureus (principal); Z94.83 Pancreas transplant status; Z94.0 Kidney transplant status; E87.1 Hypo-osmolality and hyponatremia; M86.9 Osteomyelitis, unspecified; N17.9 Acute kidney failure, unspecified; L02.611 Cutaneous abscess of right foot; E87.2 Acidosis; L03.115 Cellulitis of right lower limb; N39.0 Urinary tract infection, site not specified; R65.20 Severe sepsis without septic shock; M71.171 Other infective bursitis, right ankle and foot; E11.22 Type 2 diabetes mellitus with diabetic chronic kidney disease; E11.40 Type 2 diabetes mellitus with diabetic neuropathy, unspecified; E11.610 Type 2 diabetes mellitus with diabetic neuropathic arthropathy; E11.69 Type 2 diabetes mellitus with other specified complication; E11.51 Type 2 diabetes mellitus with diabetic peripheral angiopathy without gangrene; E11.319 Type 2 diabetes mellitus with unspecified diabetic retinopathy without macular edema; N18.3 Chronic kidney disease, stage 3 (moderate); E11.621 Type 2 diabetes mellitus with foot ulcer; L97.519 Non-pressure chronic ulcer of other part of right foot with unspecified severity; F22 Delusional disorders; E86.9 Volume depletion, unspecified; N14.1 Nephropathy induced by other drugs, medicaments and biological substances; I12.9 Hypertensive chronic kidney disease with stage 1 through stage 4 chronic kidney disease, or unspecified chronic kidney disease; T50.8X5A Adverse effect of diagnostic agents, initial encounter; E78.5 Hyperlipidemia, unspecified; R80.9 Proteinuria, unspecified; F41.9 Anxiety disorder, unspecified; Z79.82 Long term (current) use of aspirin; Z79.52 Long term (current) use of systemic steroids; Z79.899 Other long term (current) drug therapy; Z86.14 Personal history of Methicillin resistant Staphylococcus aureus infection; Z85.828 Personal history of other malignant neoplasm of skin; Z87.891 Personal history of nicotine dependence; Z88.0 Allergy status to penicillin; Z91.040 Latex allergy status
CPT/HCPCS: 36415; 71046; 74177; 80048; 80053; 80197; 80202; 81001; 82150; 82533; 83605; 83690; 83735; 84100; 84484; 85025; 85027; 85610; 85652; 85730; 86140; 87040; 87070; 87075; 87077; 87086; 87186; 87205; 88304; 93005; 96360; 99285

== ENCOUNTER → 2017-11-14 | Outpatient (CLI) | payer MEDICARE, OTHER ==
[2017-11-14 08:55] LABS: Appearance,Urine Clear (Clear); Bilirubin,Urine Negative (Negative); Blood,Urine Negative (Negative); Color,Urine Light Yellow; Glucose,Urine (UA) Negative (Negative); Ketones,Urine Negative (Negative); Leukocyte Esterase,Urine Negative (Negative); Nitrite,Urine Negative (Negative); PH, Urine 6.5 (5.0-8.0); Protein,Urine Negative (Negative); Urobilinogen,Urine <2.0 mg/dL (<2.0)
[2017-11-14 09:26] LABS: HCT 38.9 % (39.0-53.0); HGB 12.3 gm/dL (13.0-17.5); MCH 30.1 pg (25.0-35.0); MCHC 31.6 g/dL (31.0-37.0); MCV 95.1 fL (80.0-100.0); Mean Platelet Volume 6.5; Platelet Count 339 k/uL (150-450); RBC 4.09 m/uL (4.30-5.90); RDW 15.7 % (11.5-15.5); WBC 11.1 k/uL (3.8-10.6)
[2017-11-14 09:53] LABS: Calcium 9.3 mg/dL (8.4-10.2); Magnesium 2.1 mg/dL (1.6-2.3); Phosphorus 4.2 mg/dL (2.5-4.5); Potassium 5.1 mmol/L (3.5-5.1); Uric Acid 7.2 mg/dL (3.5-8.5)
[2017-11-14 10:51] LABS: Eosinophils # (M) 0.67 k/uL (0-0.7); Lymphocytes # (M) 2.78 k/uL (1.0-4.8); Monocytes # (M) 0.89 k/uL (0-1.0); Neutrophils # (M) 6.77 k/uL (1.3-7.7); Neutrophils % (M) 61 %; Nucleated Red Blood Cells 0 /100 WBC (0-0); Total Cells Counted 100
[2017-11-14 16:36] LABS: Iron Saturation 25.51 (15.00-50.00)
[2017-11-14 16:50] LABS: Parathyroid Hormone Intact 61.6 pg/mL (14.0-72.0); Vitamin D 25 Hydroxy 46.4 ng/mL (30.0-100.0)
== END | disposition home or self-care (01) ==
LOC: LABWHC1 08:12
PROVIDERS: ATTEND Internal Medicine Nephrology
DX: N18.2 Chronic kidney disease, stage 2 (mild) (principal); D63.1 Anemia in chronic kidney disease; E55.9 Vitamin D deficiency, unspecified; E21.3 Hyperparathyroidism, unspecified; M10.9 Gout, unspecified; Z94.0 Kidney transplant status
CPT/HCPCS: 36415; 80048; 80197; 81003; 82306; 82728; 83540; 83550; 83735; 83970; 84100; 84550; 85025

== ENCOUNTER → 2017-11-28 | Outpatient (CLI) | payer MEDICARE, OTHER ==
--- NOTE | 2017-11-28 15:29 | US ---
EXAMINATION TYPE: US kidneys/renal and bladder DATE OF EXAM: 11/28/2017 COMPARISON: CT 2017, US 2017 CLINICAL HISTORY: 57-year-old male N18.2 stage 2 kidney disease. History of LLQ transplant kidney TECHNIQUE: Multiple sonographic images of the kidneys and bladder were obtained. Additional scanning of the patient's left lower quadrant transplant kidney. FINDINGS: EXAM MEASUREMENTS: Right Kidney: 8.6 x 4.9 x 4.8 cm Left Kidney: 8.6 x 5.0 x 5.0 cm LLQ Transplant Kidney: 12.1 x 6.6 x 6.9cm Right Kidney: atrophic, echogenic without hydronephrosis Left Kidney: atrophic, echogenic without hydronephrosis LLQ Transplant Kidney: A couple cysts are present, largest in the upper pole measuring 4.1 x 4.2 x 4. 3 cm; there is mild hydronephrosis. Bladder: wnl Bilateral Jets seen: left jet seen IMPRESSION: The [place] kidneys are atrophic. There is a left lower quadrant transplant kidney that shows mild hyd ronephrosis. A left-sided ureteral jet likely from the transplant is visualized.
== END | disposition home or self-care (01) ==
LOC: RADUSWWP 11:11
PROVIDERS: ATTEND Internal Medicine Nephrology
DX: N26.1 Atrophy of kidney (terminal) (principal); N13.30 Unspecified hydronephrosis; Z94.0 Kidney transplant status
CPT/HCPCS: 76770

== ENCOUNTER → 2017-11-28 | Outpatient (CLI) | payer MEDICARE, OTHER ==
--- NOTE | 2017-11-28 17:18 | BD ---
EXAMINATION TYPE: Axial Bone Density DATE OF EXAM: 11/28/2017 COMPARISON: 04.18.2013 CLINICAL HISTORY: 57 YR OLD MALE.....ICD-10 CODE: M85.80 OSTEOPENIA Height: 66.3 Weight: 153 FRAX RISK QUESTIONS: Glucocorticoids (More than 3mos): YES (Ex: prednisone, prednisolone, methylprednisolone, dexamethasone, and hydrocortisone). History of Fracture in Adulthood: YES RISK FACTORS HISTORY OF: MANY BROKEN BONES IN PAST....NOTHING SINCE AGE 52 THOUGH Active: BEST HE CAN Diet low in dairy products/other sources of calcium: NO Lost more than 2 inches in height since high school: YES Frequent falls: UNSTEADY Poor Health: RENAL MEDICATIONS: Prednisone or other steroids: YES, HIGH DOSES EVERY DAY How Long: SINCE 1997 Additional Medications: ANTI REJECTION MEDS, BP MEDS, HX OF DIABETES IN PAST TILL TRANSPLANT OF KIDNE Y AND PANCREAS, VIT D AND CALCIUM, CHOLESTEROL MEDS Additional History: CHRONIC KIDNEY DISEASE, TRANSPLANT PATIENT EXAM MEASUREMENTS: Bone mineral densitometry was performed using the [email or web address] System. Bone mineral density as measured about the Lumbar spine is: ----- L1-L4(G/cm2): 1.062 T Score Values are as follows: ----- L1: -1.2 ----- L2: -0.8 ----- L3: -1.2 ----- L4: -1.0 ----- L1-L4: -1.0 Bone mineral density has: Increased 8.2% since study of: 04.18.2013 Bone mineral density about the R hip (g/cm2): 0.606 Bone mineral density about the L hip (g/cm2): 0.639 T Score values are as follows: -----R Neck: -3.2 -----L Neck: -3.4 -----R Total: -3.2 -----L Total: -2.9 Bone mineral density has: Decreased -0.6% since study of: 04.18.2013 FRAX%s: THERE IS A 39.1% CHANCE OF A MAJOR OSTEOPOROTIC FX AND A 23.8% FOR HIP FX.....PROBABILITY OF FX IN 10 YRS TIME IMPRESSION: Osteoporosis (T Score less than -2.5). There is increased fracture risk and therapy is usually indicated based on age. Re-Screen 1-2 years. NOTE: T-SCORE=SD OF THE YOUNG ADULT MEAN.
== END | disposition home or self-care (01) ==
LOC: RADBDWWP 11:08
PROVIDERS: ATTEND Internal Medicine
DX: M81.0 Age-related osteoporosis without current pathological fracture (principal)
CPT/HCPCS: 77080

== ENCOUNTER → 2017-12-13 | Outpatient (CLI) | payer MEDICARE ==
[2017-12-13 08:45] LABS: HCT 41.3 % (39.0-53.0); HGB 13.1 gm/dL (13.0-17.5); MCH 29.4 pg (25.0-35.0); MCHC 31.7 g/dL (31.0-37.0); MCV 92.8 fL (80.0-100.0); Mean Platelet Volume 6.5; Platelet Count 436 k/uL (150-450); RBC 4.45 m/uL (4.30-5.90); RDW 15.8 % (11.5-15.5); WBC 13.6 k/uL (3.8-10.6)
[2017-12-13 08:57] LABS: Potassium 5.4 mmol/L (3.5-5.1)
[2017-12-13 20:03] LABS: Hemoglobin A1C 5.5 % (4.0-6.0)
== END | disposition home or self-care (01) ==
LOC: LABWHC1 08:10
PROVIDERS: ATTEND Physical Medicine & Rehabilitation
DX: E10.9 Type 1 diabetes mellitus without complications (principal); Z51.81 Encounter for therapeutic drug level monitoring; Z94.0 Kidney transplant status; Z94.83 Pancreas transplant status; Z79.899 Other long term (current) drug therapy
CPT/HCPCS: 36415; 80197; 82150; 82565; 82947; 83036; 83690; 84132; 84520; 85027

== ENCOUNTER → 2018-01-18 | Outpatient (CLI) | payer MEDICARE, OTHER ==
[2018-01-18 09:40] LABS: Anion Gap 8 mmol/L; Blood Urea Nitrogen 20 mg/dL (9-20); Calcium 9.6 mg/dL (8.4-10.2); Carbon Dioxide 24 mmol/L (22-30); Chloride 110 mmol/L (98-107); Glucose 93 mg/dL (74-99); Potassium 5.1 mmol/L (3.5-5.1); Sodium 142 mmol/L (137-145)
== END | disposition home or self-care (01) ==
LOC: LABWHC1 07:59
PROVIDERS: ATTEND Physical Medicine & Rehabilitation
DX: Z51.81 Encounter for therapeutic drug level monitoring (principal); Z79.899 Other long term (current) drug therapy; Z94.0 Kidney transplant status
CPT/HCPCS: 36415; 80048

== ENCOUNTER → 2018-02-05 | Outpatient (CLI) | payer MEDICARE, OTHER ==
[2018-02-05 09:27] LABS: Calcium 9.3 mg/dL (8.4-10.2); Magnesium 2.1 mg/dL (1.6-2.3); Phosphorus 3.4 mg/dL (2.5-4.5); Potassium 5.2 mmol/L (3.5-5.1); Uric Acid 7.9 mg/dL (3.5-8.5)
[2018-02-05 10:11] LABS: Anisocytosis Slight; HCT 40.4 % (39.0-53.0); HGB 12.8 gm/dL (13.0-17.5); MCH 29.7 pg (25.0-35.0); MCHC 31.7 g/dL (31.0-37.0); MCV 93.6 fL (80.0-100.0); Mean Platelet Volume 6.5; Platelet Count 398 k/uL (150-450); RBC 4.31 m/uL (4.30-5.90); WBC 10.1 k/uL (3.8-10.6)
[2018-02-05 10:55] LABS: Appearance,Urine Clear (Clear); Bilirubin,Urine Negative (Negative); Blood,Urine Negative (Negative); Color,Urine Yellow; Glucose,Urine (UA) Negative (Negative); Ketones,Urine Negative (Negative); Leukocyte Esterase,Urine Negative (Negative); Nitrite,Urine Negative (Negative); Protein,Urine Negative (Negative); Specific Gravity,Urine 1.016 (1.001-1.035); Urobilinogen,Urine <2.0 mg/dL (<2.0)
[2018-02-05 12:30] LABS: Lymphocytes # (M) 2.32 k/uL (1.0-4.8); Monocytes # (M) 1.31 k/uL (0-1.0); Neutrophils # (M) 6.26 k/uL (1.3-7.7); Neutrophils % (M) 62 %; Nucleated Red Blood Cells 0 /100 WBC (0-0); Total Cells Counted 100
[2018-02-05 16:31] LABS: Iron Saturation 35.04 (15.00-50.00)
[2018-02-05 19:15] LABS: Parathyroid Hormone Intact 55.7 pg/mL (14.0-72.0)
== END ==
LOC: LABWHC1 08:02
PROVIDERS: ATTEND Nurse Practitioner Family
DX: N18.2 Chronic kidney disease, stage 2 (mild) (principal); D63.1 Anemia in chronic kidney disease; E55.9 Vitamin D deficiency, unspecified; E21.3 Hyperparathyroidism, unspecified; M10.9 Gout, unspecified; N39.0 Urinary tract infection, site not specified; Z94.0 Kidney transplant status
CPT/HCPCS: 36415; 80048; 80197; 81003; 82728; 83540; 83550; 83735; 83970; 84100; 84550; 85025

== ENCOUNTER → 2018-04-04 | Outpatient (CLI) | payer MEDICARE, OTHER ==
[2018-04-04 09:13] LABS: HCT 41.8 % (39.0-53.0); HGB 13.2 gm/dL (13.0-17.5); MCHC 31.6 g/dL (31.0-37.0); MCV 94.8 fL (80.0-100.0); Mean Platelet Volume 6.4; Platelet Count 379 k/uL (150-450); RBC 4.41 m/uL (4.30-5.90); RDW 15.8 % (11.5-15.5); WBC 10.9 k/uL (3.8-10.6)
[2018-04-04 16:04] LABS: Potassium 4.6 mmol/L (3.5-5.5)
[2018-04-04 17:41] LABS: Hemoglobin A1C 5.1 % (4.0-6.0)
== END | disposition home or self-care (01) ==
LOC: LABWHC1 08:26
PROVIDERS: ATTEND Physical Medicine & Rehabilitation
DX: Z48.22 Encounter for aftercare following kidney transplant (principal); E10.9 Type 1 diabetes mellitus without complications; Z79.899 Other long term (current) drug therapy; Z94.0 Kidney transplant status; Z94.83 Pancreas transplant status; Z51.81 Encounter for therapeutic drug level monitoring
CPT/HCPCS: 36415; 80197; 82150; 82565; 82947; 83036; 83690; 84132; 84520; 85027

== ENCOUNTER → 2018-05-14 | Outpatient (CLI) | payer MEDICARE, OTHER ==
--- NOTE | 2018-05-14 14:21 | US ---
"EXAMINATION TYPE: US renal transplant w dop DATE OF EXAM: 05/14/2018 COMPARISON: us 11/28/2017, CT CLINICAL HISTORY: 10/20/2017. EXAM PERFORMED: Grayscale on [place] kidneys and Doppler duplex and Grayscale imaging of the transplan geraldine kidney. EXAM MEASUREMENTS: [place] Right Kidney: 9.2 x 5.0 x 5.1 cm [place] Left Kidney: 6.0 x 3.2 x 3.8 cm Transplant Kidney: 11.7 x 5.8 x 5.9 cm Location of transplanted kidney: Left pelvis ANATOMY: [place] Right Kidney: Echogenic, atrophic [place] Left Kidney: Echogenic, atrophic Transplant Kidney: Multiple cystic areas visualized, largest measuring 4.7 x 4.5 x 4.5 cm. This cont ains a single thin internal septation. Bladder: wnl Bilateral Jets seen: No Resistive indices of the arcuate arteries in the left pelvic transplant kidney measure 1.0 and 0.74, elevated. IMPRESSION: 1. Resistive indices of the arcuate vasculature in the left kidney pelvic transplant kidney and eleva geraldine, which can be seen in rejection. No hydronephrosis or evidence of acute obstruction is seen. No p erinephric fluid collection is identified. 2. Benign-appearing left cortical renal cysts with the largest measuring 4.7 cm containing a single t hin internal septation. 3. [place]ak renal atrophy. A Yellow level critical message alert has been initiated for Ashli An MD~[id number] via the [employer] | Critical Results System on 05/14/2018 2:18 PM. This message alert has been sent to Ashli loco MD~[id number] via the preferences provided by the clinician for the receipt of Radiology Critical Findi ngs. Message ID [id number]."
== END | disposition home or self-care (01) ==
LOC: RADUSWWP 13:14
PROVIDERS: ATTEND Internal Medicine Nephrology
DX: N18.2 Chronic kidney disease, stage 2 (mild) (principal); N26.1 Atrophy of kidney (terminal); N28.1 Cyst of kidney, acquired; Z94.0 Kidney transplant status
CPT/HCPCS: 76776

== ENCOUNTER → 2018-05-15 | Outpatient (CLI) | payer MEDICARE, OTHER ==
--- NOTE | 2018-05-15 15:00 | XR ---
EXAMINATION TYPE: XR chest 2V DATE OF EXAM: 05/15/2018 COMPARISON: Prior chest x-ray 10/20/2017 HISTORY: Acute respiratory infection, cough TECHNIQUE: Frontal and lateral views of the chest are obtained. FINDINGS: Bandlike area of increased attenuation is present in the right middle lobe which is develo ped in the interval. Port-A-Cath is stable, distal tip overlying the left innominate vein. No pneumot horax or pleural effusion. Slight spinal curvature. Heart size is unchanged. Prominent lung volume ma y be indicative of underlying COPD. Bones are stable. There is bronchial wall thickening. IMPRESSION: Correlate for right middle lobe pneumonia versus atelectasis. Consider bronchitis, react josephine airways disease. Follow-up to resolution.
== END | disposition home or self-care (01) ==
LOC: RADXRMAIN 11:49
PROVIDERS: ATTEND Internal Medicine
DX: J06.9 Acute upper respiratory infection, unspecified (principal)
CPT/HCPCS: 71046

== ENCOUNTER → 2018-06-01 | Outpatient (CLI) | payer MEDICARE ==
--- NOTE | 2018-06-02 08:26 | MR ---
EXAMINATION TYPE: MR kidney wo/w con DATE OF EXAM: 06/01/2018 COMPARISON: Renal ultrasound May 14, 2018. CT abdomen and pelvis October 20, 2017 HISTORY: Kidney lesion, hx transplant CONTRAST: Standard multiplanar, multisequence MRI departmental protocol utilizing 7 mL intravenous Gadavist essence olinium contrast. FINDINGS: Kidneys: End stage atrophy with marked cortical thinning and diminished size to both [place] kidneys, left smaller than right is redemonstrated. There are few tiny subcentimeter cortical cysts seen bilat erally. No hydronephrosis is present. No suspicious masses are noted. Left lower quadrant renal transplant is normal in size measuring 11.8 cm long axis coronal image 15. There are several thin-walled cysts of varying size and shape throughout the left sided transplant. O ne of largest lesions is mid pole level posteriorly and laterally a 4.6 x 5.0 cm thin-walled cyst wit h a few thin septa laterally and posteriorly noted. A lower pole level medially there is 4.3 x 4.0 cm thin-walled cyst. No hydronephrosis or concerning solid or cystic lesions are evident. Other: Lung bases are clear. Visualized portion of liver and spleen are unremarkable. Pancreas is not well visualized, severe diffuse atrophy is felt present. No suspicious biliary dilatation is present . No suspicious bowel dilatation is noted. Wondering cecum into the anterior lower abdomen just left of midline is noted. No abdominal ascites is seen. Visualized osseous structures are intact. There is partial visualization of vertical scar over the midline of the anterior abdomen. IMPRESSION: Thin-walled cysts in left lower quadrant transplant which is normal in size without cortical thinning or hydronephrosis. A few thin septa are noted. No Bosniak type III or IV cystic lesions. No suspicio us solid lesions.
== END ==
LOC: RADMRIMAIN 17:46
PROVIDERS: ATTEND Internal Medicine Nephrology
DX: N28.1 Cyst of kidney, acquired (principal); Z94.0 Kidney transplant status
CPT/HCPCS: 82565; 74183; 36415; A9585

== ENCOUNTER → 2018-07-27 | Outpatient (CLI) | payer MEDICARE, OTHER ==
[2018-07-27 09:03] LABS: HCT 43.8 % (39.0-53.0); HGB 14.1 gm/dL (13.0-17.5); MCH 29.6 pg (25.0-35.0); MCHC 32.2 g/dL (31.0-37.0); MCV 91.7 fL (80.0-100.0); Mean Platelet Volume 6.3; Platelet Count 384 k/uL (150-450); RBC 4.78 m/uL (4.30-5.90); RDW 15.6 % (11.5-15.5); WBC 11.5 k/uL (3.8-10.6)
[2018-07-27 17:25] LABS: Hemoglobin A1C 5.6 % (4.0-6.0)
[2018-07-27 18:08] LABS: Potassium 4.5 mmol/L (3.5-5.5)
== END | disposition home or self-care (01) ==
LOC: LABWHC1 08:14
PROVIDERS: ATTEND Physical Medicine & Rehabilitation
DX: Z48.22 Encounter for aftercare following kidney transplant (principal); E10.9 Type 1 diabetes mellitus without complications; Z94.0 Kidney transplant status; Z94.83 Pancreas transplant status; Z51.81 Encounter for therapeutic drug level monitoring; Z79.899 Other long term (current) drug therapy
CPT/HCPCS: 36415; 80197; 82150; 82565; 82947; 83036; 83690; 84132; 84520; 85027

== ENCOUNTER → 2018-10-02 | Outpatient (CLI) | payer MEDICARE, OTHER ==
[2018-10-02 08:53] LABS: Appearance,Urine Clear (Clear); Bilirubin,Urine Negative (Negative); Blood,Urine Negative (Negative); Color,Urine Yellow; Glucose,Urine (UA) Negative (Negative); Hyaline Casts,Urine 6 /lpf (0-2); Ketones,Urine Trace (Negative); Leukocyte Esterase,Urine Negative (Negative); Mucus,Urine Few /hpf; Nitrite,Urine Negative (Negative); Protein,Urine 1+ (Negative); Specific Gravity,Urine 1.029 (1.001-1.035); Squamous Epithelial Cell,Urine <1 /hpf (0-4)
[2018-10-02 08:54] LABS: HCT 40.7 % (39.0-53.0); HGB 12.8 gm/dL (13.0-17.5); MCH 29.5 pg (25.0-35.0); MCHC 31.6 g/dL (31.0-37.0); MCV 93.6 fL (80.0-100.0); Mean Platelet Volume 6.6; Platelet Count 415 k/uL (150-450); RBC 4.35 m/uL (4.30-5.90); RDW 14.8 % (11.5-15.5); WBC 13.2 k/uL (3.8-10.6)
[2018-10-02 12:17] LABS: Eosinophils # (M) 0.79 k/uL (0-0.7); Lymphocytes # (M) 1.98 k/uL (1.0-4.8); Monocytes # (M) 0.92 k/uL (0-1.0); Neutrophils % (M) 72 %; Nucleated Red Blood Cells 0 /100 WBC (0-0); Total Cells Counted 100
[2018-10-02 15:52] LABS: Hemoglobin A1C 5.6 % (4.0-6.0)
[2018-10-02 16:03] LABS: Albumin 4.1 g/dL (3.80-4.90); Albumin/Globulin Ratio 2.05 (1.60-3.17); Anion Gap 5.5 mmol/L (4.00-12.00); Calcium 9.3 mg/dL (8.7-10.3); Carbon Dioxide 26.5 mmol/L (21.6-31.8); Potassium 4.8 mmol/L (3.5-5.5); Total Bilirubin 0.6 mg/dL (0.3-1.2); Total Protein 6.1 g/dL (6.2-8.2)
[2018-10-02 22:32] LABS: Total Protein,Urine Random 76.6 mg/dL (0.0-13.5)
[2018-10-02 22:52] LABS: Creatinine,Urine Random 308.4 mg/dL
[2018-10-03 11:58] LABS: Tacrolimus (FK506) 6.1 ng/mL (5.0-20.0)
[2018-10-03 15:47] LABS: BKV DNA (PCR), Quant <125 Copies/mL (<125); LOG BKV Copies/mL <2.10 (<2.10)
== END | disposition home or self-care (01) ==
LOC: LABWHC1 07:59
PROVIDERS: ATTEND Physical Medicine & Rehabilitation
DX: Z13.89 Encounter for screening for other disorder (principal); M81.0 Age-related osteoporosis without current pathological fracture; E10.22 Type 1 diabetes mellitus with diabetic chronic kidney disease; N18.2 Chronic kidney disease, stage 2 (mild); E78.5 Hyperlipidemia, unspecified; Z51.81 Encounter for therapeutic drug level monitoring; Z48.298 Encounter for aftercare following other organ transplant; Z94.0 Kidney transplant status; Z94.83 Pancreas transplant status; Z79.899 Other long term (current) drug therapy
CPT/HCPCS: 36415; 80053; 80197; 81001; 82150; 82465; 82570; 82977; 83036; 83690; 84156; 84681; 85025

== ENCOUNTER → 2018-10-08 | Outpatient (CLI) | payer MEDICARE, OTHER ==
--- NOTE | 2018-10-08 12:06 | XR ---
EXAMINATION TYPE: XR foot complete LT DATE OF EXAM: 10/08/2018 COMPARISON: 08/01/2015 HISTORY: Pain TECHNIQUE: Three views are submitted. FINDINGS: There is diffuse osteopenia. There is marked deformity the first tarsal metatarsal and second metatar zoraida joint which appears chronic. There is ill-definition along the cortical margin of the medial aspe ct of the most medial cuneiform bone. May represent a Charcot joint. Marked arthritic change involving the first MTP the DIP joint noted. Vascular calcifications noted. N o definite destructive changes seen. Trauma to the second IMPRESSION: 1. No slight cortical ill definition along the medial margin of the most medial cuneiform bone suspic ious for early osteomyelitis. 2. Marked deformity the first digit including the tarsal metatarsal joints may represent a Charcot liliane int could be related to previous trauma correlate clinically.
== END | disposition home or self-care (01) ==
LOC: RADXRMAIN 11:42
PROVIDERS: ATTEND Podiatrist
DX: M20.002 Unspecified deformity of left finger(s) (principal); M86.9 Osteomyelitis, unspecified

== ENCOUNTER 2021-01-22 14:51 | Emergency (ER) | payer MEDICARE, OTHER ==
[2021-01-22 15:02] VITALS: BP 123/74; PULSE 72; RESP 20; TEMP 98.7
--- NOTE | 2021-01-22 16:47 | ED ---
Skin/Abscess/FB HPI - General Chief complaint: Skin/Abscess/Foreign Body Stated complaint: Foot Ulcer Time Seen by Provider: 01/22/21 16:35 Source: patient, RN notes reviewed, old records reviewed (16) Mode of arrival: ambulatory Limitations: no limitations - History of Present Illness Initial comments: 60-year-old male patient, alert and oriented 4, presents to the emergency room stating he was sent by Dr. Jacome for evaluation and admission for diabetic foot ulcer to his left foot. He denies any pain, fevers or drainage. He has a history of chronic foot ulcers. He is a kidney and pancreas transplant in 1997. MD complaint: other (Diabetic foot ulcer) -: month(s) Location: R foot (Base of lateral side proximal phalanx fifth toe) Severity scale (1-10): 0 Associated symptoms: denies other symptoms - Related Data Home Medications Medication Instructions Recorded Confirmed Aspirin 81 mg PO DAILY 09/27/13 07/09/19 Bimatoprost [Lumigan .01% Ophth 1 drop BOTH EYES HS 09/27/13 07/09/19 Soln] Enalapril [Vasotec] 20 mg PO DAILY 09/27/13 07/09/19 Lovastatin [Mevacor] 20 mg PO HS 09/27/13 07/09/19 Multivitamin [Men's Multi-Vitamin] 1 tab PO DAILY 09/27/13 07/09/19 NIFEdipine XL [Procardia XL] 60 mg PO DAILY 09/27/13 07/09/19 mycophenolate mofetiL [Cellcept] 500 mg PO BID 09/27/13 07/09/19 predniSONE 5 mg PO DAILY 09/27/13 07/09/19 Tacrolimus [Prograf] 1 mg PO BID 01/03/14 07/09/19 Cholecalciferol [Vitamin D3 (25 1,000 unit PO DAILY 12/02/14 07/09/19 Mcg = 1000 Iu)] Dorzolamide 2% [Trusopt 2%] 1 drops LEFT EYE BID 12/02/14 07/09/19 Folic Acid 1 mg PO DAILY 10/20/17 07/09/19 Sodium Polystyrene Sulfonate 15 gm PO WEEKLY 02/15/18 07/09/19 [Kayexalate] carvediloL [Coreg] 6.25 mg PO BID 02/15/18 07/09/19 Meclizine [Antivert] 25 mg PO TID 03/22/19 07/09/19 predniSONE 10 mg PO DAILY 03/22/19 07/09/19 Allergies Allergy/AdvReac Type Severity Reaction Status Date / Time latex AdvReac Rash/Hives Verified 01/22/21 15:02 Penicillins AdvReac Rash/Hives Verified 01/22/21 15:02 Review of Systems ROS Statement: Those systems with pertinent positive or pertinent negative responses have been documented in the HPI. ROS Other: All systems not noted in ROS Statement are negative. Past Medical History Past Medical History: Cancer, Skin Disorder Additional Past Medical History / Comment(s): RT FOOT OPEN AREA, PVD, WAS TX FOR DIABETES UP UNTIL HIS TRANSPLANT(). 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 Past Anesthesia/Blood Transfusion Reactions: No Reported Reaction Past Psychological History: Anxiety Smoking Status: Never smoker Past Alcohol Use History: Rare Past Drug Use History: None Reported - Past Family History Father Additional Family Medical History / Comment(s): Pt states father of motorcycle accident 1970 Mother Family Medical History: No Reported History General Exam Limitations: no limitations General appearance: alert, in no apparent distress Head exam: Present: atraumatic, normocephalic, normal inspection Eye exam: Present: normal appearance, EOMI Neck exam: Present: full ROM Respiratory exam: Present: normal lung sounds bilaterally. Absent: respiratory distress, wheezes, rales, rhonchi, stridor Cardiovascular Exam: Present: regular rate, normal rhythm, normal heart sounds. Absent: systolic murmur, diastolic murmur, rubs, gallop, clicks Left Foot/Toe exam: Present: erythema (Diabetic foot ulcer to the base of the proximal fifth phalanx) Neurovascular tendon exam: Absent: abnormal cap refill, extremity cold to touch Neurological exam: Present: alert, oriented X3, CN II-XII intact Psychiatric exam: Present: normal affect, normal mood Skin exam: Present: warm, dry, intact, normal color. Absent: rash Course Vital Signs 01/22/21 14:59 Temperature 98.7 F Pulse Rate 72 Respiratory 20 Rate Blood Pressure 123/74 O2 Sat by Pulse 99 Oximetry Medical Decision Making - Medical Decision Making Patient has been afebrile, states that he has no pain. There is no active drainage from the wound. His white blood cell count is 11.9. X-ray of the left foot shows a demonstration of the marked deformity of the first and second joints and big toe. Compared to the prior study there are erosive resorptive changes of the fifth toe with almost no bone remaining distal to the MTP joint. He is currently on antibiotics at this time. We did discuss this case with Dr. Lucio. We will have him follow-up with his primary care doctor next week and return to the emergency room with any new or worsening symptoms including fever, increased pain or increased drainage. - Lab Data Result diagrams: 01/22/21 16:47 01/22/21 16:47 Lab Results 01/22/21 01/22/21 Range/Units 16:47 16:47 WBC 11.9 H (3.8-10.6) k/uL RBC 4.39 (4.30-5.90) m/uL Hgb 13.9 (13.0-17.5) gm/dL Hct 40.3 (39.0-53.0) % MCV 91.9 (80.0-100.0) fL MCH 31.8 (25.0-35.0) pg MCHC 34.6 (31.0-37.0) g/dL RDW 15.4 (11.5-15.5) % Plt Count 437 (150-450) k/uL MPV 6.6 Neutrophils % 80 % Lymphocytes % 11 % Monocytes % 4 % Eosinophils % 1 % Basophils % 0 % Neutrophils # 9.6 H (1.3-7.7) k/uL Lymphocytes # 1.3 (1.0-4.8) k/uL Monocytes # 0.5 (0-1.0) k/uL Eosinophils # 0.1 (0-0.7) k/uL Basophils # 0.0 (0-0.2) k/uL Sodium 138 (137-145) mmol/L Potassium 4.6 (3.5-5.1) mmol/L Chloride 109 H (98-107) mmol/L Carbon Dioxide 21 L (22-30) mmol/L Anion Gap 8 mmol/L BUN 22 H (9-20) mg/dL Creatinine 0.82 (0.66-1.25) mg/dL Est GFR (CKD-EPI)AfAm >90 (>60 ml/min/1.73 sqM) Est GFR (CKD-EPI)NonAf >90 (>60 ml/min/1.73 sqM) Glucose 114 H (74-99) mg/dL Calcium 9.3 (8.4-10.2) mg/dL Total Bilirubin 0.5 (0.2-1.3) mg/dL AST 28 (17-59) U/L ALT 13 (4-49) U/L Alkaline Phosphatase 84 (38-126) U/L Total Protein 6.9 (6.3-8.2) g/dL Albumin 3.8 (3.5-5.0) g/dL Disposition Clinical Impression: Diabetic foot ulcers Disposition: HOME SELF-CARE Condition: Good Instructions (If sedation given, give patient instructions): Diabetic Foot Ulcers (ED) Additional Instructions: Continue taking your antibiotics as prescribed and follow-up with Dr. Jacome next week. Return to the emergency room with any new or worsening symptoms including fever or pain. Is patient prescribed a controlled substance at d/c from ED?: No Referrals: Devon Brand MD [Primary Care Provider] - 1-2 days Time of Disposition: 19:27
[2021-01-22 17:26] LABS: Basophils % (A) 0 %; Eosinophils # (A) 0.1 k/uL (0-0.7); Eosinophils % (A) 1 %; HCT 40.3 % (39.0-53.0); HGB 13.9 gm/dL (13.0-17.5); Lymphocytes # (A) 1.3 k/uL (1.0-4.8); Lymphocytes % (A) 11 %; MCH 31.8 pg (25.0-35.0); MCHC 34.6 g/dL (31.0-37.0); MCV 91.9 fL (80.0-100.0); Mean Platelet Volume 6.6; Monocytes # (A) 0.5 k/uL (0-1.0); Monocytes % (A) 4 %; Neutrophils # (A) 9.6 k/uL (1.3-7.7); Neutrophils % (A) 80 %; Platelet Count 437 k/uL (150-450); RBC 4.39 m/uL (4.30-5.90); RDW 15.4 % (11.5-15.5); WBC 11.9 k/uL (3.8-10.6)
[2021-01-22 17:44] LABS: ALT 13 U/L (4-49); AST 28 U/L (17-59); African American GFR (CKD) >90 (>60 ml/min/1.73 sqM); Albumin 3.8 g/dL (3.5-5.0); Alkaline Phosphatase 84 U/L (38-126); Anion Gap 8 mmol/L; Blood Urea Nitrogen 22 mg/dL (9-20); Calcium 9.3 mg/dL (8.4-10.2); Carbon Dioxide 21 mmol/L (22-30); Chloride 109 mmol/L (98-107); Glucose 114 mg/dL (74-99); Non-African American GFR(CKD) >90 (>60 ml/min/1.73 sqM); Potassium 4.6 mmol/L (3.5-5.1); Sodium 138 mmol/L (137-145); Total Bilirubin 0.5 mg/dL (0.2-1.3); Total Protein 6.9 g/dL (6.3-8.2)
--- NOTE | 2021-01-22 17:58 | XR ---
EXAMINATION TYPE: XR foot complete LT DATE OF EXAM: 01/22/2021 CLINICAL HISTORY: Diabetic foot ulcer TECHNIQUE: Frontal, lateral, and oblique images of the left foot are obtained. COMPARISON: Radiographs October 08, 2018 FINDINGS: Compared to the prior study there are erosive/resorptive changes of the fifth toe with almost no bone remaining distal to the MTP joint. There is diffuse osteopenia. There is redemonstration of marked deformity of the first second tarsal metatarsal joints which appears chronic. There is deformity of the distal big toe similar to prior. IMPRESSION: 1. Compared to the prior study there are erosive/resorptive changes of the fifth toe with almost no bone remaining distal to the MTP joint. 2. Redemonstration of marked deformity of the first and second TMT joints and big toe.
== END 2021-01-22 19:45 | disposition home or self-care (01) ==
LOC: EC 14:51
DX: E11.621 Type 2 diabetes mellitus with foot ulcer (principal); Z88.0 Allergy status to penicillin; Z91.040 Latex allergy status
CPT/HCPCS: 36415; 80053; 85025; 99283

== ENCOUNTER → 2021-02-10 | Outpatient (CLI) | payer MEDICARE, OTHER ==
[2021-02-10 19:40] LABS: Basophils # (A) 0.08 X 10*3/uL (0.00-0.10); Basophils % (A) 0.5 %; Eosinophils # (A) 0.28 X 10*3/uL (0.04-0.35); Eosinophils % (A) 1.9 %; HCT 38.6 % (39.6-50.0); HGB 12.4 g/dL (13.0-17.0); Lymphocytes # (A) 1.23 X 10*3/uL (0.90-5.00); Lymphocytes % (A) 8.3 %; MCH 30.2 pg (27.0-32.0); MCHC 32.1 g/dL (32.0-37.0); MCV 94.1 fL (80.0-97.0); Mean Platelet Volume 9.6 fL (9.5-12.2); Monocytes # (A) 1.31 X 10*3/uL (0.20-1.00); Monocytes % (A) 8.9 %; Neutrophils # (A) 11.76 X 10*3/uL (1.80-7.70); Neutrophils % (A) 79.7 %; Platelet Count 414 X 10*3/uL (140-440); RDW 15.4 % (11.5-14.5); WBC 14.76 X 10*3/uL (4.50-10.00)
[2021-02-10 21:22] LABS: Erythrocyte Sedimentation Rate 35 mm/Hr (0-20)
[2021-02-11 04:55] LABS: African American GFR (CKD) 78.4 (60.0-200.0); Albumin 3.9 g/dL (3.8-4.9); Albumin/Globulin Ratio 1.52 (1.60-3.17); Anion Gap 18.6 mmol/L (4.00-12.00); BUN/Creat Ratio 16.19 Ratio (12.00-20.00); Blood Urea Nitrogen 19.1 mg/dL (9.0-27.0); C Reactive Protein 2.1 mg/dL (0.00-0.80); Calcium 9.2 mg/dL (8.7-10.3); Carbon Dioxide 17.1 mmol/L (21.6-31.8); Globulin 2.6 g/dL (1.6-3.3); Non-African American GFR(CKD) 67.6 (60.0-200.0); Potassium 4.6 mmol/L (3.5-5.5); Prealbumin 18.2 mg/dL (18.0-42.0); Total Bilirubin 0.5 mg/dL (0.30-1.20); Total Protein 6.5 g/dL (6.2-8.2)
== END | disposition home or self-care (01) ==
LOC: LABWHC1 11:49
PROVIDERS: ATTEND Podiatrist
DX: E11.621 Type 2 diabetes mellitus with foot ulcer (principal); L97.516 Non-pressure chronic ulcer of other part of right foot with bone involvement without evidence of necrosis
CPT/HCPCS: 36415; 80053; 84134; 85025; 85652; 86140

== ENCOUNTER → 2021-02-24 | Outpatient (CLI) | payer MEDICARE, OTHER ==
[~2021-02-24] MED LIST: CASIRIVIMAB (REGN10933) (EUA) 600 MG, IMDEVIMAB (REGN10987) (EUA) 600 MG in SODIUM CHLO... IVPB ONE; SODIUM CHLORIDE 0.9% 50 ML IVPB ONE; SODIUM CHLORIDE 0.9% 500 ML 500 ML in EMPTY BAG 1 BAG IV PRN
[2021-02-24 10:49] VITALS: TEMP 97.7
[2021-02-24 11:26] VITALS: PULSE 67; RESP 16
[2021-02-24 12:09] VITALS: BP 151/72
== END ==
LOC: PROCWHC3 10:42
PROVIDERS: ATTEND Internal Medicine
DX: U07.1 COVID-19 (principal); E11.22 Type 2 diabetes mellitus with diabetic chronic kidney disease; N18.9 Chronic kidney disease, unspecified; Z91.040 Latex allergy status; Z88.0 Allergy status to penicillin; Z87.891 Personal history of nicotine dependence
CPT/HCPCS: J1642; Q0243; M0243; 96361

== ENCOUNTER → 2021-03-15 | Outpatient (CLI) | payer MEDICARE, OTHER ==
--- NOTE | 2021-03-15 18:35 | US ---
EXAMINATION TYPE: US venous doppler duplex LE LT DATE OF EXAM: 03/15/2021 1:21 PM COMPARISON: NONE CLINICAL HISTORY: 60-year-old male E11.621 Type 2 diabetes mellitus,L97.516. Nonhealing wound left fo ot, no h/o DVT SIDE PERFORMED: Left TECHNIQUE: The lower extremity deep venous system is examined utilizing real time linear array sonog any with graded compression, doppler sonography and color-flow sonography. FINDINGS: VESSELS IMAGED: Common Femoral Vein Deep Femoral Vein Greater Saphenous Vein * Femoral Vein Popliteal Vein Small Saphenous Vein * Proximal Calf Veins (* superficial vessels) Left Leg: Negative for DVT IMPRESSION: No evidence for DVT within the left lower extremity imaged from the groin to the upper calf.
== END | disposition home or self-care (01) ==
LOC: RADUSWWP 12:49
PROVIDERS: ATTEND Internal Medicine Infectious Disease
DX: E11.621 Type 2 diabetes mellitus with foot ulcer (principal); L97.516 Non-pressure chronic ulcer of other part of right foot with bone involvement without evidence of necrosis

== ENCOUNTER → 2021-03-30 | Outpatient (CLI) | payer MEDICARE, OTHER ==
[2021-03-30 14:31] LABS: HGB 12.6 g/dL (13.0-17.0); MCHC 31.5 g/dL (32.0-37.0); MCV 95.2 fL (80.0-97.0); Mean Platelet Volume 9.2 fL (9.5-12.2); Platelet Count 396 X 10*3/uL (140-440); RDW 15.9 % (11.5-14.5); WBC 11.09 X 10*3/uL (4.50-10.00)
[2021-03-30 16:03] LABS: African American GFR (CKD) 98.7 (60.0-200.0); Blood Urea Nitrogen 18.5 mg/dL (9.0-27.0); Non-African American GFR(CKD) 85.2 (60.0-200.0); Potassium 4.1 mmol/L (3.5-5.5)
== END | disposition home or self-care (01) ==
LOC: LABWHC1 08:53
PROVIDERS: ATTEND Physical Medicine & Rehabilitation
DX: Z48.298 Encounter for aftercare following other organ transplant (principal); Z51.81 Encounter for therapeutic drug level monitoring; E10.9 Type 1 diabetes mellitus without complications; Z94.0 Kidney transplant status; Z94.83 Pancreas transplant status; Z79.899 Other long term (current) drug therapy
CPT/HCPCS: 36415; 80197; 82150; 82565; 82947; 83690; 84132; 84520; 85027

== ENCOUNTER → 2021-03-30 | Outpatient (CLI) | payer MEDICARE, OTHER ==
--- NOTE | 2021-03-31 12:13 | P.ARTDOP ---
Arterial Doppler LOWER EXTREMITY ARTERIAL DOPPLER: DATE OF SERVICE: 03/30/2021 Reason for study: Diabetic ulcer left foot. Doppler waveforms: Atypical bilaterally throughout. Pulse volume recording: []. Pressure gradients: None recorded. Ankle-brachial indices: Greater than 1 bilaterally. Suspect these are falsely elevated. Toe brachial indices: [] on the right, [] on the left Impression: Suspect moderate bilateral fem-pop disease. Cannot exclude iliac component. Feel pressures are falsely elevated. Clinical correlation recommended. Consider vascular specialty assessment..
== END | disposition home or self-care (01) ==
LOC: RADUSWWP 08:59
PROVIDERS: ATTEND Internal Medicine Infectious Disease
DX: L97.526 Non-pressure chronic ulcer of other part of left foot with bone involvement without evidence of necrosis (principal); E11.621 Type 2 diabetes mellitus with foot ulcer
CPT/HCPCS: 93922

== ENCOUNTER → 2021-06-22 | Outpatient (CLI) | payer MEDICARE, OTHER ==
[2021-06-22 14:51] LABS: HCT 38.1 % (39.6-50.0); HGB 12.1 g/dL (13.0-17.0); MCH 30.3 pg (27.0-32.0); MCHC 31.8 g/dL (32.0-37.0); MCV 95.5 fL (80.0-97.0); NRBC Per 100 WBC 0 /100 WBCS (0.0-0.0); Platelet Count 371 X 10*3/uL (140-440); RBC 3.99 X 10*6/uL (4.40-5.60); RDW 15.5 % (11.5-14.5); WBC 13.98 X 10*3/uL (4.50-10.00)
[2021-06-22 15:12] LABS: African American GFR (CKD) 81.7 (60.0-200.0); Blood Urea Nitrogen 22.9 mg/dL (9.0-27.0); Non-African American GFR(CKD) 70.5 (60.0-200.0)
== END | disposition home or self-care (01) ==
LOC: LABWHC1 07:59
PROVIDERS: ATTEND Physical Medicine & Rehabilitation
DX: Z51.81 Encounter for therapeutic drug level monitoring (principal); Z48.298 Encounter for aftercare following other organ transplant; E10.9 Type 1 diabetes mellitus without complications; Z94.0 Kidney transplant status; Z94.83 Pancreas transplant status; Z79.899 Other long term (current) drug therapy
CPT/HCPCS: 36415; 80197; 82150; 82565; 82947; 83036; 83690; 84132; 84520; 85027

== ENCOUNTER → 2021-09-28 | Outpatient (CLI) | payer MEDICARE, OTHER ==
[2021-09-28 14:25] LABS: Basophils # (A) 0.13 X 10*3/uL (0.00-0.10); Basophils % (A) 1.1 %; Eosinophils # (A) 1.17 X 10*3/uL (0.04-0.35); Eosinophils % (A) 10.3 %; HCT 38.8 % (39.6-50.0); HGB 12.3 g/dL (13.0-17.0); Immature Grans, Automated 0.6 %; Lymphocytes # (A) 1.96 X 10*3/uL (0.90-5.00); Lymphocytes % (A) 17.3 %; MCH 29.6 pg (27.0-32.0); MCHC 31.7 g/dL (32.0-37.0); MCV 93.5 fL (80.0-97.0); Mean Platelet Volume 9.8 fL (9.5-12.2); Monocytes # (A) 1.07 X 10*3/uL (0.20-1.00); Monocytes % (A) 9.4 %; NRBC Per 100 WBC 0 /100 WBCS (0.0-0.0); Neutrophils # (A) 6.94 X 10*3/uL (1.80-7.70); Neutrophils % (A) 61.3 %; Platelet Count 474 X 10*3/uL (140-440); RBC 4.15 X 10*6/uL (4.40-5.60); RDW 16.5 % (11.5-14.5); WBC 11.34 X 10*3/uL (4.50-10.00)
[2021-09-28 15:11] LABS: Albumin 4.2 g/dL (3.8-4.9); Albumin/Globulin Ratio 1.35 (1.60-3.17); Anion Gap 10.6 mmol/L (10.00-18.00); BUN/Creat Ratio 35.89 Ratio (12.00-20.00); Blood Urea Nitrogen 32.3 mg/dL (9.0-27.0); Calcium 9.4 mg/dL (8.7-10.3); Carbon Dioxide 22.4 mmol/L (20.0-27.5); Globulin 3.1 g/dL (1.6-3.3); Non-African American GFR(CKD) 93.2 (60.0-200.0); PSA Annual Screen 0.2 ng/mL (0.000-4.000); Potassium 4.6 mmol/L (3.5-5.5); Total Bilirubin 0.5 mg/dL (0.30-1.20); Total Protein 7.3 g/dL (6.2-8.2)
== END | disposition home or self-care (01) ==
LOC: LABWHC1 08:45
PROVIDERS: ATTEND Internal Medicine
DX: Z12.5 Encounter for screening for malignant neoplasm of prostate (principal); I10 Essential (primary) hypertension; E10.610 Type 1 diabetes mellitus with diabetic neuropathic arthropathy; Z48.298 Encounter for aftercare following other organ transplant; Z79.899 Other long term (current) drug therapy; Z51.81 Encounter for therapeutic drug level monitoring; Z94.0 Kidney transplant status; Z94.83 Pancreas transplant status
CPT/HCPCS: 80053; 82150; 83690; 85025; 82306; 83036; 36415; G0103

== ENCOUNTER → 2021-10-04 | Outpatient (CLI) | payer MEDICARE, OTHER ==
--- NOTE | 2021-10-04 19:31 | BD ---
EXAMINATION TYPE: Axial Bone Density DATE OF EXAM: 10/04/2021 CLINICAL HISTORY: 61 years year old Male. ICD-10 CODE: Z79.52 CHRONIC STEROID USE Height: 66 Weight: 134 FRAX RISK QUESTIONS: Alcohol (3 or more units per day): NO Family History (Parent hip fracture): NO Glucocorticoids (More than 3mos): YES (Ex: prednisone, prednisolone, methylprednisolone, dexamethasone, and hydrocortisone). History of Fracture in Adulthood: YES Secondary Osteoporosis: 1. Type 1 Diabetes: NOT SINCE PANCREASE TRANSPLANT 2. Hyperthyroidism: NO 3. Menopause before 45: N/A 4. Malnutrition: NO 5. Chronic liver disease: NO Rheumatoid Arthritis: NO Current Tobacco Use: NO RISK FACTORS HISTORY OF: Hip Fracture (Right/Left): NO Spine Fracture: NO History of Wrist Fracture: LT WRIST When: AGE 12 Surgery to Spine/Hip(right/left)/Wrist (right/left): NO Family History of Osteoporosis: NO Active: NO Diet low in dairy products/other sources of calcium: YES Postmenopausal woman: N/A Take estrogen and/or progesterone medications: NO Lost more than 2 inches in height since high school: YES Frequent falls: YES Poor Health: YES Hyperparathyroidism: NO Adrenal Insufficiency: NO MEDICATIONS: Prednisone or other steroids: YES, PREDNISONE How Long: SINCE 1997 Thyroid Medications: NO Osteoporosis Medications: NO Additional Medications: PREDNISONE, VIT D, BP MEDS, CHOLESTEROL MEDS, REJECTION MEDS FOR KIDNEY AND P ANCREASE TRANSPLANT IN 1997. Additional History: EXAM MEASUREMENTS: Bone mineral densitometry was performed using the [employer] System. Bone mineral density as measured about the Lumbar spine is: ----- L1-L4(G/cm2): 0.969 T Score Values are as follows: ----- L1: -1.8 ----- L2: -1.6 ----- L3: -1.8 ----- L4: -1.9 ----- L1-L4: -1.8 Bone mineral density has: DECREASED 8.7 % since study of: 11/28/2017 Bone mineral density about the R hip (g/cm2): 0.483 Bone mineral density about the L hip (g/cm2): 0.521 T Score values are as follows: -----R Neck: -4.0 -----L Neck: -3.7 -----R Total: -3.6 -----L Total: -3.5 Bone mineral density has: DECREASED 9.8 % since 11/28/2017 FRAX%s: The graph provided illustrates a 50.3% chance for a major osteoporotic fx and a 37.0% chance for the hips probability for fx in 10 years time. IMPRESSION: Osteoporosis (T Score less than -2.5). There is increased fracture risk and therapy is usually indicated based on age. Re-Screen 1-2 years. NOTE: T-SCORE=SD OF THE YOUNG ADULT MEAN.
== END | disposition home or self-care (01) ==
LOC: RADBDWWP 15:17
PROVIDERS: ATTEND Internal Medicine
DX: M81.0 Age-related osteoporosis without current pathological fracture (principal); Z79.52 Long term (current) use of systemic steroids
CPT/HCPCS: 77080

== ENCOUNTER → 2021-10-05 | Outpatient (CLI) | payer MEDICARE, OTHER ==
--- NOTE | 2021-10-05 10:24 | XR ---
EXAMINATION TYPE: XR foot complete LT DATE OF EXAM: 10/05/2021 COMPARISON: 01/22/2021 HISTORY: Multiple nonhealing wounds TECHNIQUE: Three views are submitted. FINDINGS: There appears to been interval resection of portions of the fifth digit. Diffuse osteopenia and sever e arthropathy with the formation of the first digit are noted. There is a chronic appearing deformity or of the first tarsal metatarsal junction and widening of the first and second metatarsal distances which can be associated with Charcot joint and Lisfranc ligament injury. Suspect diffuse osteopenia with vascular calcifications and soft tissue edema. IMPRESSION: 1. There is resection of portions of the fifth digit however, there is a lucency within the shaft of the fifth digit which could be on the basis of osteomyelitis. 2. Correlate for Charcot joint. Lisfranc ligament injury in the differential diagnosis.
== END | disposition home or self-care (01) ==
LOC: RADXRMAIN 10:04
PROVIDERS: ATTEND Internal Medicine Infectious Disease
DX: S81.802A Unspecified open wound, left lower leg, initial encounter (principal)

== ENCOUNTER 2021-11-25 16:08 | Emergency (ER) | payer MEDICARE, OTHER ==
[2021-11-25] MEDS ORDERED: VANCOMYCIN IV PER PHARMACY 1 EACH MISC MISCELLANE PRN (17:27)
[2021-11-25] MEDS ORDERED: MORPHINE SULFATE 4 MG/ML SYRINGE IVP STA (17:27)
[2021-11-25] MEDS ORDERED: ONDANSETRON 4 MG/2 ML VIAL IVP STA (17:27)
[2021-11-25] MEDS ORDERED: SODIUM CHLORIDE 0.9% 1,000 ML IV STA (17:27)
[2021-11-25] MEDS ORDERED: VANCOMYCIN 1,250 MG in SODIUM CHLORIDE 0.9% 250 ML IVPB STA (17:32)
--- NOTE | 2021-11-25 17:46 | XR ---
PROCEDURE: XR foot limited LT - 2V DATE AND TIME: 11/25/2021 5:11 PM CLINICAL INDICATION: Pain, left foot wound TECHNIQUE: AP and lateral radiographs COMPARISON: 10/05/2021 FINDINGS: There is no fracture or malalignment. On the AP view the skeletal structures and soft tissues at the same appearance as compared to the annabella or radiographs. However, on the lateral view, there is a 2 cm plantar soft tissue volume loss/irregularity located at the junction of the hindfoot and midfoot. Underlying skeletal structures have similar appearance to the prior radiographs. IMPRESSION: Plantar soft tissue defect, new since the prior study.
[2021-11-25 17:55] LABS: Basophils % (A) 0 %; Eosinophils % (A) 0 %; HCT 37.6 % (39.0-53.0); HGB 12.1 gm/dL (13.0-17.5); Lymphocytes # (A) 0.4 k/uL (1.0-4.8); Lymphocytes % (A) 3 %; MCH 29.5 pg (25.0-35.0); MCHC 32.3 g/dL (31.0-37.0); MCV 91.5 fL (80.0-100.0); Mean Platelet Volume 7.1; Monocytes # (A) 0.6 k/uL (0-1.0); Monocytes % (A) 4 %; Neutrophils # (A) 16.2 k/uL (1.3-7.7); Neutrophils % (A) 93 %; Platelet Count 340 k/uL (150-450); RBC 4.11 m/uL (4.30-5.90); RDW 15.8 % (11.5-15.5); WBC 17.4 k/uL (3.8-10.6)
[2021-11-25 18:04] LABS: Magnesium 1.5 mg/dL (1.6-2.3); Potassium 4.1 mmol/L (3.5-5.1)
--- NOTE | 2021-11-25 18:48 | ED ---
General Adult HPI - General Chief complaint: Skin/Abscess/Foreign Body Stated complaint: Wound Time Seen by Provider: 11/25/21 16:30 Source: patient, RN notes reviewed, old records reviewed Mode of arrival: ambulatory Limitations: no limitations - History of Present Illness Initial comments: Patient is a 61-year-old male with past medical history remarkable for pancreatic transplant on immunotherapy, recurrent foot sores, who presents with Department complaining of a new foot sore. Is located over the inferior aspect of the left foot. He states he has had less than appetite for the last 2 days. Had one episode of nausea and vomiting. Endorses subjective fevers. Has not been taking anything for his fevers. Recently finished care with [facility] approximately one week ago. Denies any chest pain, shortness of breath. Denies any current nausea or vomiting. Denies any diarrhea. Has not been on antibiotics for over a week. Presents for reevaluation of his foot. Does state it is open, and oozing. - Related Data Home Medications Medication Instructions Recorded Confirmed Aspirin 81 mg PO DAILY 09/27/13 11/25/21 Bimatoprost [Lumigan 0.01% Ophth 1 drop BOTH EYES HS 09/27/13 11/25/21 Soln] Enalapril [Vasotec] 20 mg PO HS 09/27/13 11/25/21 Lovastatin [Mevacor] 20 mg PO HS 09/27/13 11/25/21 Multivitamin [Men's Multi-Vitamin] 1 tab PO DAILY 09/27/13 11/25/21 mycophenolate mofetiL [Cellcept] 500 mg PO BID 09/27/13 11/25/21 predniSONE 5 mg PO DAILY 09/27/13 11/25/21 Tacrolimus [Prograf] 1 mg PO BID 01/03/14 11/25/21 Cholecalciferol [Vitamin D3 (25 1,000 unit PO DAILY 12/02/14 11/25/21 Mcg = 1000 Iu)] Dorzolamide 2% [Trusopt 2%] 1 drops LEFT EYE BID 12/02/14 11/25/21 Folic Acid 1 mg PO DAILY 10/20/17 11/25/21 Sodium Polystyrene Sulfonate 15 gm PO Q14D 02/15/18 11/25/21 [Kayexalate] carvediloL [Coreg] 6.25 mg PO BID 02/15/18 11/25/21 Brimonidine Tartrate/Timolol 1 drop BOTH EYES BID 11/25/21 11/25/21 [Combigan 0.2%-0.5% Eye Drops] Calcium Carbonate [Tums] 500 mg PO TID PRN 11/25/21 11/25/21 Gabapentin 300 mg PO HS 11/25/21 11/25/21 NIFEdipine XL [Procardia XL] 60 mg PO BID 11/25/21 11/25/21 Previous Rx's Medication Instructions Recorded Cephalexin [Keflex] 500 mg PO Q12HR 10 Days #20 cap 11/25/21 Ondansetron Odt [Zofran Odt] 4 mg PO Q8HR PRN 2 Days #6 tab 11/25/21 Allergies Allergy/AdvReac Type Severity Reaction Status Date / Time latex AdvReac Rash/Hives Verified 11/25/21 17:45 Penicillins AdvReac Rash/Hives Verified 11/25/21 17:45 Review of Systems ROS Statement: Those systems with pertinent positive or pertinent negative responses have been documented in the HPI. Review of Systems: CONST: Denies fever EYES: Denies blurry vision ENT: Denies nasal congestion C/V: Denies Chest pain RESP: Denies shortness of breath GI: Denies abdominal pain : Denies dysuria SKIN: Endorses left foot wound MSK: Denies joint pain. NEURO: Denies headache ROS Other: All systems not noted in ROS Statement are negative. Past Medical History Past Medical History: Cancer, Skin Disorder Additional Past Medical History / Comment(s): RT FOOT OPEN AREA, PVD, WAS TX FOR DIABETES UP UNTIL HIS TRANSPLANT(). 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 Past Anesthesia/Blood Transfusion Reactions: No Reported Reaction Past Psychological History: Anxiety Smoking Status: Former smoker Past Alcohol Use History: Rare Past Drug Use History: None Reported - Past Family History Father Additional Family Medical History / Comment(s): Pt states father of motorcycle accident 1970 Mother Family Medical History: No Reported History General Exam - General Exam Comments Initial Comments: General: Appears in no acute distress. HEAD: Normal with no signs of head trauma. EYES: PERRLA, EOMI, conjunctiva normal, no discharge. ENT: Hearing grossly intact, normal oropharynx. RESPIRATORY: Clear breath sounds bilaterally. No wheezes, rales, or rhonchi. C/V: Regular rate and rhythm. S1 and S2 auscultated, no edema, peripheral pulses 2+ and intact throughout ABD: Abd is soft, nontender, nondistended EXT: Normal range of motion, no obvious deformity SKIN: Patient has an open, draining foot wound the inferior aspect of the left foot. Mild surrounding cellulitis. Neurovascular intact. No induration. No fluctuance. NEURO: Alert and oriented 4. No focal deficits. Limitations: no limitations Course Vital Signs 11/25/21 11/25/21 16:21 20:42 Temperature 99.9 F H 98.8 F Pulse Rate 95 82 Respiratory 16 18 Rate Blood Pressure 144/71 132/66 O2 Sat by Pulse 95 95 Oximetry Medical Decision Making - Medical Decision Making Based on the patient's presentation and physical exam, I'm concerned for cellulitis of the inferior aspect of his left foot. I did recommend we obtain basic laboratory studies. He'll be given a dose of vancomycin as well as IV fluids and Zofran empirically. He was in agreement this plan. He would like to go home if possible. Foot x-ray shows soft tissue son but no signs of pus or pneumonitis. Laboratory studies remarkable for leukocytosis of 17.4, and he is usually chronically elevated near this level. Patient has a chronic normocytic anemia with a hemoglobin of 12.1. Remainder the labs are unremarkable. Blood cultures and wound cultures were sent. I discussed results with the patient. He is receiving his vancomycin infusion. States he feels better. I discussed admission versus attempt at managing this at home and he would like to attempt home. I do believe this is reasonable at this time. Will be sent home with a prescription for Keflex. Does have follow- up with his foot doctor next week. We'll attempt to see his wound care clinic doctor tomorrow. Strict return precautions were discussed, including worsening fevers, nausea, vomiting. He was in agreement this plan. I will provide the patient with a prescription for Keflex. I instructed the patient to follow up with their PCP in the next 1-3 days. I explained that the patient should return to the emergency department if they experience any worsening symptoms. Strict return precautions were discussed with the patient. The patient expressed understanding of these instructions. I answered all questions that the patient had. The patient was discharged home in good condition with their prescriptions and follow up information. - Lab Data Result diagrams: 11/25/21 17:31 11/25/21 17:31 Lab Results 11/25/21 11/25/21 Range/Units 17:31 17:31 WBC 17.4 H (3.8-10.6) k/uL RBC 4.11 L (4.30-5.90) m/uL Hgb 12.1 L (13.0-17.5) gm/dL Hct 37.6 L (39.0-53.0) % MCV 91.5 (80.0-100.0) fL MCH 29.5 (25.0-35.0) pg MCHC 32.3 (31.0-37.0) g/dL RDW 15.8 H (11.5-15.5) % Plt Count 340 (150-450) k/uL MPV 7.1 Neutrophils % 93 % Lymphocytes % 3 % Monocytes % 4 % Eosinophils % 0 % Basophils % 0 % Neutrophils # 16.2 H (1.3-7.7) k/uL Lymphocytes # 0.4 L (1.0-4.8) k/uL Monocytes # 0.6 (0-1.0) k/uL Eosinophils # 0.0 (0-0.7) k/uL Basophils # 0.0 (0-0.2) k/uL Sodium 135 L (137-145) mmol/L Potassium 4.1 (3.5-5.1) mmol/L Chloride 104 (98-107) mmol/L Carbon Dioxide 22 (22-30) mmol/L Anion Gap 9 mmol/L BUN 23 H (9-20) mg/dL Creatinine 1.19 (0.66-1.25) mg/dL Est GFR (CKD-EPI)AfAm 77 (>60 ml/min/1.73 sqM) Est GFR (CKD-EPI)NonAf 67 (>60 ml/min/1.73 sqM) Glucose 91 (74-99) mg/dL Calcium 9.0 (8.4-10.2) mg/dL Magnesium 1.5 L (1.6-2.3) mg/dL Disposition Clinical Impression: Wound of foot, Cellulitis Disposition: HOME SELF-CARE Condition: Good Instructions (If sedation given, give patient instructions): Cellulitis (ED) Prescriptions: Cephalexin [Keflex] 500 mg PO Q12HR 10 Days #20 cap Ondansetron Odt [Zofran Odt] 4 mg PO Q8HR PRN 2 Days #6 tab PRN Reason: Nausea Is patient prescribed a controlled substance at d/c from ED?: No Referrals: Devon Brand MD [Primary Care Provider] - 1-2 days [facility] [NON-STAFF] - 1-2 days Time of Disposition: 18:40
[2021-11-25 20:44] VITALS: BP 132/66; PULSE 82; RESP 18; TEMP 98.8
[2021-11-26] MEDS ORDERED: VANCOMYCIN 1,250 MG in SODIUM CHLORIDE 0.9% 250 ML IVPB SCH (08:00)
== END 2021-11-25 20:46 | disposition home or self-care (01) ==
LOC: EC 16:08
DX: S81.802A Unspecified open wound, left lower leg, initial encounter (principal); L03.90 Cellulitis, unspecified; E11.51 Type 2 diabetes mellitus with diabetic peripheral angiopathy without gangrene; E11.42 Type 2 diabetes mellitus with diabetic polyneuropathy; F41.9 Anxiety disorder, unspecified; Z91.040 Latex allergy status; Z88.0 Allergy status to penicillin; Z87.891 Personal history of nicotine dependence; Z72.89 Other problems related to lifestyle; Z79.899 Other long term (current) drug therapy
CPT/HCPCS: 36415; 80048; 83735; 85025; 87040; 87070; 87205; 87075; 73620; 96365; 96366; 96375 ×2; 96361; 99284; J3370; J2270; J2405

== ENCOUNTER 2021-12-07 10:45 | Inpatient (IN) | payer MEDICARE, OTHER ==
[2021-12-07 13:24] LABS: Basophils % (A) 0 %; Eosinophils % (A) 0 %; HCT 32.2 % (39.0-53.0); HGB 10.7 gm/dL (13.0-17.5); Lymphocytes # (A) 0.4 k/uL (1.0-4.8); Lymphocytes % (A) 2 %; MCH 30.4 pg (25.0-35.0); MCHC 33.3 g/dL (31.0-37.0); MCV 91.3 fL (80.0-100.0); Monocytes # (A) 0.8 k/uL (0-1.0); Monocytes % (A) 4 %; Neutrophils # (A) 20.4 k/uL (1.3-7.7); Neutrophils % (A) 92 %; Platelet Count 493 k/uL (150-450); RBC 3.53 m/uL (4.30-5.90); RDW 14.9 % (11.5-15.5); WBC 22.1 k/uL (3.8-10.6)
[2021-12-07 13:35] LABS: Calcium 8.1 mg/dL (8.4-10.2); Potassium 4.6 mmol/L (3.5-5.1); Total Bilirubin 0.8 mg/dL (0.2-1.3)
[2021-12-07] MEDS ORDERED: SODIUM CHLORIDE 0.9% 2,000 ML IV ONE (13:43)
[2021-12-07] MEDS ORDERED: VANCOMYCIN IV PER PHARMACY 1 EACH MISC MISCELLANE PRN (15:23)
[2021-12-07] MEDS ORDERED: PIPERACILLIN-TAZOBACTAM 3.375 GM in SODIUM CHLORIDE 0.9% 100 ML IVPB STA (15:27)
[2021-12-07] MEDS ORDERED: NALOXONE 0.4 MG/ML 1 ML VIAL IV PRN (15:28)
--- NOTE | 2021-12-07 15:28 | ED ---
General Adult HPI - General Chief complaint: Recheck/Abnormal Lab/Rx Stated complaint: Body Aches, Fever Time Seen by Provider: 12/07/21 15:05 Source: patient Mode of arrival: wheelchair Limitations: no limitations - History of Present Illness Initial comments: 61-year-old male with past medical history of diabetes status post pancreas and kidney transplant in 1997, chronic lower extremity wounds, neuropathy presents to the emergency department with fever, chills and left foot infection. He was seen by Dr. Guerrero in the wound care clinic today. He found that he had a low- grade fever, high heart rates and malodorous left foot wounds. He has currently been on 2 rounds of antibiotics to include Keflex and Cipro. Patient reports that he is not tolerating the Cipro as it makes her nauseated and vomited. Dr. Guerrero does call the emergency department as he recommends that the patient be evaluated here and admitted for failed outpatient treatment of his lower extremity cellulitis. Patient denies fevers, chills, cough. No other alleviating, isolation washer modifying factors - Related Data Home Medications Medication Instructions Recorded Confirmed Aspirin 81 mg PO DAILY 09/27/13 12/07/21 Bimatoprost [Lumigan 0.01% Ophth 1 drop BOTH EYES HS 09/27/13 12/07/21 Soln] Enalapril [Vasotec] 20 mg PO HS 09/27/13 12/07/21 Lovastatin [Mevacor] 20 mg PO HS 09/27/13 12/07/21 Multivitamin [Men's Multi-Vitamin] 1 tab PO DAILY 09/27/13 12/07/21 mycophenolate mofetiL [Cellcept] 500 mg PO BID 09/27/13 12/07/21 predniSONE 5 mg PO DAILY 09/27/13 12/07/21 Tacrolimus [Prograf] 1 mg PO BID 01/03/14 12/07/21 Cholecalciferol [Vitamin D3 (25 25 mcg PO DAILY 12/02/14 12/07/21 Mcg = 1000 Iu)] Dorzolamide 2% [Trusopt 2%] 1 drop LEFT EYE BID 12/02/14 12/07/21 Folic Acid 1 mg PO DAILY 10/20/17 12/07/21 Sodium Polystyrene Sulfonate 15 gm PO Q14D 02/15/18 12/07/21 [Kayexalate] carvediloL [Coreg] 6.25 mg PO BID 02/15/18 12/07/21 Brimonidine Tartrate/Timolol 1 drop BOTH EYES BID 11/25/21 12/07/21 [Combigan 0.2%-0.5% Eye Drops] Calcium Carbonate [Tums] 500 mg PO TID PRN 11/25/21 12/07/21 Gabapentin 300 mg PO HS 11/25/21 12/07/21 NIFEdipine XL [Procardia XL] 60 mg PO BID 11/25/21 12/07/21 Ciprofloxacin HCl [Cipro] 500 mg PO BID 12/07/21 12/07/21 Ondansetron Odt [Zofran Odt] 4 mg PO Q8H PRN 12/07/21 12/07/21 Allergies Allergy/AdvReac Type Severity Reaction Status Date / Time latex Allergy Rash/Hives Verified 12/07/21 16:12 Penicillins Allergy Rash/Hives Verified 12/07/21 16:12 Review of Systems ROS Statement: Those systems with pertinent positive or pertinent negative responses have been documented in the HPI. ROS Other: All systems not noted in ROS Statement are negative. Past Medical History Past Medical History: Cancer, Skin Disorder Additional Past Medical History / Comment(s): RT FOOT OPEN AREA, PVD, WAS TX FOR DIABETES UP UNTIL HIS TRANSPLANT(). 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 Past Anesthesia/Blood Transfusion Reactions: No Reported Reaction Past Psychological History: Anxiety Smoking Status: Never smoker - Past Family History Father Additional Family Medical History / Comment(s): Pt states father of motorcycle accident 1970 Mother Family Medical History: No Reported History General Exam Limitations: no limitations General appearance: alert, in no apparent distress Head exam: Present: atraumatic, normocephalic, normal inspection Eye exam: Present: normal appearance, PERRL, EOMI. Absent: scleral icterus, conjunctival injection, periorbital swelling ENT exam: Present: normal exam, mucous membranes moist Neck exam: Present: normal inspection. Absent: tenderness, meningismus, lymphadenopathy Respiratory exam: Present: normal lung sounds bilaterally. Absent: respiratory distress, wheezes, rales, rhonchi, stridor Cardiovascular Exam: Present: regular rate, normal rhythm, normal heart sounds. Absent: systolic murmur, diastolic murmur, rubs, gallop, clicks GI/Abdominal exam: Present: soft, normal bowel sounds. Absent: distended, tenderness, guarding, rebound, rigid Extremities exam: Present: normal inspection, full ROM, normal capillary refill. Absent: tenderness, pedal edema, joint swelling, calf tenderness Back exam: Present: normal inspection Neurological exam: Present: alert, oriented X3, CN II-XII intact Psychiatric exam: Present: normal affect, normal mood Skin exam: Present: warm, dry, other (wound on plantar aspect of left foot. malodorous. pus drainage). Absent: rash Course Vital Signs 12/07/21 12/07/21 12/07/21 11:12 15:11 16:37 Temperature 99.3 F 98.0 F 97.7 F Pulse Rate 90 74 Pulse Rate [ 72 Pulse Oximetery ] Respiratory 16 18 17 Rate Blood Pressure 89/54 101/61 Blood Pressure 98/55 [Right Arm] O2 Sat by Pulse 97 96 95 Oximetry Medical Decision Making - Medical Decision Making Upon arrival patient was placed into room 5. Thorough history and physical exam was performed. [place] is a cooker helper for pain control. Labs are reviewed and demonstrate a white count 22.1. Sodium 124. Creatinine is up to 2.1. He was given a liter bolus of normal saline followed by 130 mL/h. He is started on Zosyn and Vanco after blood culture is obtained. He will be admitted to Dr. Lino. Patient awaiting a bed on the floor in stable condition - Lab Data Result diagrams: 12/10/21 05:32 12/10/21 05:32 Lab Results 12/07/21 12/07/21 12/07/21 Range/Units 13:12 13:12 13:12 WBC 22.1 H (3.8-10.6) k/uL RBC 3.53 L (4.30-5.90) m/uL Hgb 10.7 L (13.0-17.5) gm/dL Hct 32.2 L (39.0-53.0) % MCV 91.3 (80.0-100.0) fL MCH 30.4 (25.0-35.0) pg MCHC 33.3 (31.0-37.0) g/dL RDW 14.9 (11.5-15.5) % Plt Count 493 H (150-450) k/uL MPV 8.0 Neutrophils % 92 % Lymphocytes % 2 % Monocytes % 4 % Eosinophils % 0 % Basophils % 0 % Neutrophils # 20.4 H (1.3-7.7) k/uL Lymphocytes # 0.4 L (1.0-4.8) k/uL Monocytes # 0.8 (0-1.0) k/uL Eosinophils # 0.0 (0-0.7) k/uL Basophils # 0.0 (0-0.2) k/uL Sodium 124 L (137-145) mmol/L Potassium 4.6 (3.5-5.1) mmol/L Chloride 92 L (98-107) mmol/L Carbon Dioxide 19 L (22-30) mmol/L Anion Gap 13 mmol/L BUN 53 H (9-20) mg/dL Creatinine 2.18 H (0.66-1.25) mg/dL Est GFR (CKD-EPI)AfAm 37 (>60 ml/min/1.73 sqM) Est GFR (CKD-EPI)NonAf 32 (>60 ml/min/1.73 sqM) Glucose 126 H (74-99) mg/dL Plasma Lactic Acid Lion 1.5 (0.7-2.0) mmol/L Calcium 8.1 L (8.4-10.2) mg/dL Total Bilirubin 0.8 (0.2-1.3) mg/dL AST 59 (17-59) U/L ALT 36 (4-49) U/L Alkaline Phosphatase 123 (38-126) U/L Total Protein 6.0 L (6.3-8.2) g/dL Albumin 3.0 L (3.5-5.0) g/dL Coronavirus (PCR) (Not Detectd) 12/07/21 Range/Units 15:05 WBC (3.8-10.6) k/uL RBC (4.30-5.90) m/uL Hgb (13.0-17.5) gm/dL Hct (39.0-53.0) % MCV (80.0-100.0) fL MCH (25.0-35.0) pg MCHC (31.0-37.0) g/dL RDW (11.5-15.5) % Plt Count (150-450) k/uL MPV Neutrophils % % Lymphocytes % % Monocytes % % Eosinophils % % Basophils % % Neutrophils # (1.3-7.7) k/uL Lymphocytes # (1.0-4.8) k/uL Monocytes # (0-1.0) k/uL Eosinophils # (0-0.7) k/uL Basophils # (0-0.2) k/uL Sodium (137-145) mmol/L Potassium (3.5-5.1) mmol/L Chloride (98-107) mmol/L Carbon Dioxide (22-30) mmol/L Anion Gap mmol/L BUN (9-20) mg/dL Creatinine (0.66-1.25) mg/dL Est GFR (CKD-EPI)AfAm (>60 ml/min/1.73 sqM) Est GFR (CKD-EPI)NonAf (>60 ml/min/1.73 sqM) Glucose (74-99) mg/dL Plasma Lactic Acid Lion (0.7-2.0) mmol/L Calcium (8.4-10.2) mg/dL Total Bilirubin (0.2-1.3) mg/dL AST (17-59) U/L ALT (4-49) U/L Alkaline Phosphatase (38-126) U/L Total Protein (6.3-8.2) g/dL Albumin (3.5-5.0) g/dL Coronavirus (PCR) Not Detected (Not Detectd) Disposition Clinical Impression: Immunosuppressed status, Fever, Cellulitis and abscess of foot, Acute renal failure, Diabetic foot ulcers, Hyponatremia, Leukocytosis Disposition: ADMITTED IP TO THIS [facility] Condition: Stable Is patient prescribed a controlled substance at d/c from ED?: No Time of Disposition: 15:28 Decision to Admit Reason: Admit from EC Decision Date: 12/07/21 Decision Time: 15:28
[2021-12-07] MEDS ORDERED: HYDROcodone/APAP 7.5-325MG 1 EACH TAB PO ONE (15:31)
[2021-12-07] MEDS ORDERED: VANCOMYCIN 1,250 MG in SODIUM CHLORIDE 0.9% 250 ML IVPB STA (15:31)
[2021-12-07] MEDS: SODIUM CHLORIDE 0.9% 1,000 ML IV SCH ×2 (18:08→21:30)
[2021-12-07] MEDS ORDERED: HYDROmorphone 0.5 MG/0.5 ML SYRINGE IVP PRN (18:15)
[2021-12-07] MEDS ORDERED: ONDANSETRON 4 MG/2 ML VIAL IVP PRN (18:18)
[2021-12-07] MEDS ORDERED: MELATONIN 3 MG TABLET PO PRN (18:18)
[2021-12-07] MEDS ORDERED: CALCIUM CARBONATE 500 MG CHEWABLE PO PRN (18:21)
--- NOTE | 2021-12-07 18:24 | P.HPIM ---
History of Present Illness H&P Date: 12/07/21 Chief Complaint: sepsis Patient is a 61-year-old male with diabetes mellitus status post renal and pancreatic transplant, neuropathy, and prior skin cancer who presented to the ER at the direction of Dr. Guerrero from the outpatient wound care center. Patient has a history of multiple diabetic wounds. Recently he was found to have a plantar ulcer that grew staph aureus and Klebsiella. He has been treated outpatient with Cipro. He continued to have worsening of his symptoms and therefore Dr. Guerrero referred him to the ER. Upon arrival to the ER he was found to have a low blood pressure of 89/54. Laboratory analysis demonstrated a white blood cell count of 22.1, hemoglobin 10.7 which is below his baseline of 12.1, sodium 124, carbon dioxide 19, anion gap 13, BUN 53, creatinine 2.18. In the ER he was admitted and was started on IV fluids, Zosyn, and vancomycin. On review of outpatient lab work it does appear that the patient was seen in the ER on 11/25 and had 2 out of 2 blood cultures resulted positive for staph aureus. Therefore antibiotics will be transitioned to Vanco plus off cefazolin. Patient seen and examined at bedside. Patient reports that he developed ulceration on the bottom of his left foot approximately 2 weeks ago and has been seeking care since that time. Reports that for the last 2 weeks decreased appetite, low energy, and feeling weak and dizzy. He was having chills at home but did not check his temperature. Complaining of pain in the bottom of his foot. He follows with [facility] for his pancreatic and renal transplant. He states that his tacrolimus and mycophenolate levels have been normal. He gets some dryness every 3 months. He reports that this is his highest creatinine since receiving his transplant in 1997. He did used to follow with renal here but has not been recently as he is stable. He reports no history of [id number] disease in the past. He does not have any issues with his diabetes since transplant and does not require any diabetic medications. Pertinent positives and negatives as discussed in HPI, a complete review of systems was performed and all other systems are negative. Vital signs reviewed General: Ill appearing, no distress, appears at stated age Derm: Left foot with dime-sized ulceration on plantar aspect with surrounding erythema on the top of the forefoot, no drainage noted, packing in place, does appear to go into the muscle and possibly bone. Erythema of the left ankle Head: atraumatic, normocephalic, symmetric Eyes: EOMI, no lid lag, anicteric sclera, pupils equal round reactive to light ENT: Nose and ears atraumatic, no thrush, no pharyngeal erythema Neck: No thyromegaly, no cervical lymphadenopathy, trachea midline, supple Mouth: no lip lesion, mucus membranes dry Cardiovascular: S1S2 reg, no murmur, positive posterior tibial pulse bilateral, no edema, capillary refill less than 2 seconds Lungs: clear to auscultation bilateral, no rhonchi, no rales, no wheeze, no accessory muscle use Abdominal: soft, nontender to palpation, no guarding, no appreciable organomegaly, normal bowel sounds Ext: no gross muscle atrophy, muscle strength muscle strength 5 out of 5 in all 4 extremities, no contractures Neuro: CN II-XII grossly intact, light touch intact all 4 extremities, finger to nose within normal limits, Psych: Alert, oriented, appropriate affect Assessment/Plan: Infected diabetic ulcer of the left foot, plantar aspect with sepsis -Outpatient cultures consistent with staph aureus and Klebsiella -Continue with Vanco. Transition Zosyn to cefazolin with patient's recent positive outpatient blood cultures -Consult ID for antibiotic and wound care recommendations Outpatient blood cultures positive on 11/25 for methicillin sensitive staph aureus -Continue with cefazolin -Await repeat blood cultures -Check echocardiogram Acute kidney injury in a patient with history of renal transplant Hyponatremia - IV fluids - consult nephro - Avoid nephrotoxic agents -Hold SLY inhibitor -Check tacro and mycophenolate levels Anemia, chronic and worse than baseline -Follow CBC -No indication for transfusion at this time -Check iron studies The patient is admitted with an anticipated greater than 2 midnight stay for evaluation of left plantar infected diabetic wound with sepsis Surrogate decision-maker: CODE STATUS:full DVT prophylaxis: SCDs Discussed with: patient, nursing, Dr. Lucio, Dr. Guerrero Anticipated discharge date: pending clinical course Anticipated discharge place: home A total of 65 minutes was spent on the care of this complex patient more than 50% of the time was spent in counseling and care coordination. Past Medical History Past Medical History: Cancer, Skin Disorder Additional Past Medical History / Comment(s): RT FOOT OPEN AREA, PVD, WAS TX FOR DIABETES UP UNTIL HIS TRANSPLANT(5-1998). 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 Past Anesthesia/Blood Transfusion Reactions: No Reported Reaction Past Psychological History: Anxiety Smoking Status: Never smoker - Past Family History Father Additional Family Medical History / Comment(s): Pt states father of motorcycle accident 1970 Mother Family Medical History: No Reported History Medications and Allergies Home Medications Medication Instructions Recorded Confirmed Type Aspirin 81 mg PO DAILY 09/27/13 12/07/21 History Bimatoprost [Lumigan 0.01% Ophth 1 drop BOTH EYES HS 09/27/13 12/07/21 History Soln] Enalapril [Vasotec] 20 mg PO HS 09/27/13 12/07/21 History Lovastatin [Mevacor] 20 mg PO HS 09/27/13 12/07/21 History Multivitamin [Men's Multi-Vitamin] 1 tab PO DAILY 09/27/13 12/07/21 History mycophenolate mofetiL [Cellcept] 500 mg PO BID 09/27/13 12/07/21 History predniSONE 5 mg PO DAILY 09/27/13 12/07/21 History Tacrolimus [Prograf] 1 mg PO BID 01/03/14 12/07/21 History Cholecalciferol [Vitamin D3 (25 25 mcg PO DAILY 12/02/14 12/07/21 History Mcg = 1000 Iu)] Dorzolamide 2% [Trusopt 2%] 1 drop LEFT EYE BID 12/02/14 12/07/21 History Folic Acid 1 mg PO DAILY 10/20/17 12/07/21 History Sodium Polystyrene Sulfonate 15 gm PO Q14D 02/15/18 12/07/21 History [Kayexalate] carvediloL [Coreg] 6.25 mg PO BID 02/15/18 12/07/21 History Brimonidine Tartrate/Timolol 1 drop BOTH EYES BID 11/25/21 12/07/21 History [Combigan 0.2%-0.5% Eye Drops] Calcium Carbonate [Tums] 500 mg PO TID PRN 11/25/21 12/07/21 History Gabapentin 300 mg PO HS 11/25/21 12/07/21 History NIFEdipine XL [Procardia XL] 60 mg PO BID 11/25/21 12/07/21 History Ciprofloxacin HCl [Cipro] 500 mg PO BID 12/07/21 12/07/21 History Ondansetron Odt [Zofran Odt] 4 mg PO Q8H PRN 12/07/21 12/07/21 History Allergies Allergy/AdvReac Type Severity Reaction Status Date / Time latex Allergy Rash/Hives Verified 12/07/21 16:12 Penicillins Allergy Rash/Hives Verified 12/07/21 16:12 Physical Exam Osteopathic Statement: *. No significant issues noted on an osteopathic structural exam other than those noted in the History and Physical/Consult. Vitals: Vital Signs Temp Pulse Resp BP Pulse Ox 12/07/21 15:11 98.0 F 74 18 101/61 96 12/07/21 11:12 99.3 F 90 16 89/54 97 Intake and Output 12/07/21 12/07/21 12/07/21 06:59 14:59 22:59 Other: Weight 63.503 kg Results CBC & Chem 7: 12/07/21 13:12 12/07/21 13:12 Labs: Abnormal Lab Results - Last 24 Hours (Table) 12/07/21 12/07/21 Range/Units 13:12 13:12 WBC 22.1 H (3.8-10.6) k/uL RBC 3.53 L (4.30-5.90) m/uL Hgb 10.7 L (13.0-17.5) gm/dL Hct 32.2 L (39.0-53.0) % Plt Count 493 H (150-450) k/uL Neutrophils # 20.4 H (1.3-7.7) k/uL Lymphocytes # 0.4 L (1.0-4.8) k/uL Sodium 124 L (137-145) mmol/L Chloride 92 L (98-107) mmol/L Carbon Dioxide 19 L (22-30) mmol/L BUN 53 H (9-20) mg/dL Creatinine 2.18 H (0.66-1.25) mg/dL Glucose 126 H (74-99) mg/dL Calcium 8.1 L (8.4-10.2) mg/dL Total Protein 6.0 L (6.3-8.2) g/dL Albumin 3.0 L (3.5-5.0) g/dL
[2021-12-07] MEDS: HYDROmorphone 0.5 MG/0.5 ML SYRINGE IVP PRN (18:35)
--- NOTE | 2021-12-07 19:17 | XR ---
EXAMINATION TYPE: XR foot complete LT DATE OF EXAM: 12/07/2021 7:01 PM INDICATION: Patient age:Male; 61 years old; Reason for study: osteomyelitis; COMPARISON: Multiple foot radiographs most recent on 2021 TECHNIQUE: The left foot was examined in the AP, oblique, and lateral projections. FINDINGS: Redemonstration of amputation of the left foot fifth digit metatarsal. There is diffuse osseous demin eralization with deformity of the midfoot collapse of the normal arch with pes planus. These findings are not significantly changed from prior. Atherosclerosis of the arterial vasculature. There is erosive changes to the first digit distal metatarsal head and neck area medially with associ ated soft tissue swelling. No subcutaneous lucencies to suggest gas. IMPRESSION: 1. Postsurgical changes of the foot with pes planus and likely Charcot joint arthropathy of the mid foot. 2. Findings suggestive of osseous erosion to the first digit metatarsal head/neck. There is associat ed soft tissue swelling. Correlate for osteomyelitis.
[2021-12-07] MEDS: TACROLIMUS 1 MG CAP PO SCH (21:20)
[2021-12-07] MEDS: BRIMONIDINE TARTRATE 0.2% DROPS 5 ML BTL BOTH EYES SCH (21:26)
[2021-12-07] MEDS: ATORVASTATIN 10 MG TAB PO SCH (21:26)
[2021-12-07] MEDS: DORZOLAMIDE HCL 2% DROPS 10 ML BTL LEFT EYE SCH (21:27)
[2021-12-07] MEDS: GABAPENTIN 300 MG CAP PO SCH (21:27)
[2021-12-07] MEDS: LATANOPROST 0.005% OPHTH DROPS 2.5 ML BTL BOTH EYES SCH (21:27)
[2021-12-07] MEDS: TIMOLOL 0.5% OPHTH DROPS 5 ML BTL BOTH EYES SCH (21:29)
[2021-12-08] MEDS ORDERED: PIPERACILLIN-TAZOBACTAM 3.375 GM in SODIUM CHLORIDE 0.9% 100 ML IVPB SCH ×2
[2021-12-08] MEDS: HYDROmorphone 0.5 MG/0.5 ML SYRINGE IVP PRN ×2 (03:12→07:58)
[2021-12-08] MEDS: SODIUM CHLORIDE 0.9% 1,000 ML IV SCH (05:55)
[2021-12-08] MEDS: FOLIC ACID 1 MG TAB PO SCH (07:39)
[2021-12-08] MEDS: ASPIRIN 81 MG PO SCH (07:39)
[2021-12-08] MEDS: MULTIVITAMINS, THERA 1 EACH TAB PO SCH (07:39)
[2021-12-08] MEDS: TACROLIMUS 1 MG CAP PO SCH ×2 (07:40→21:03)
[2021-12-08] MEDS: predniSONE 5 MG TAB PO SCH (07:40)
[2021-12-08] MEDS: DORZOLAMIDE HCL 2% DROPS 10 ML BTL LEFT EYE SCH ×2 (07:41→20:28)
[2021-12-08] MEDS: BRIMONIDINE TARTRATE 0.2% DROPS 5 ML BTL BOTH EYES SCH ×2 (07:42→20:26)
[2021-12-08] MEDS: TIMOLOL 0.5% OPHTH DROPS 5 ML BTL BOTH EYES SCH ×2 (07:42→20:26)
[2021-12-08 07:48] LABS: ALT 29 U/L (4-49); AST 42 U/L (17-59); African American GFR (CKD) 63 (>60 ml/min/1.73 sqM); Albumin 2.6 g/dL (3.5-5.0); Albumin/Globulin Ratio 0.9; Alkaline Phosphatase 126 U/L (38-126); Anion Gap 13 mmol/L; Blood Urea Nitrogen 41 mg/dL (9-20); Calcium 7.9 mg/dL (8.4-10.2); Carbon Dioxide 14 mmol/L (22-30); Chloride 104 mmol/L (98-107); Glucose 90 mg/dL (74-99); Non-African American GFR(CKD) 55 (>60 ml/min/1.73 sqM); Potassium 4.8 mmol/L (3.5-5.1); Sodium 131 mmol/L (137-145); Total Bilirubin 0.6 mg/dL (0.2-1.3); Total Protein 5.6 g/dL (6.3-8.2)
[2021-12-08] MEDS: ACETAMINOPHEN TAB 325 MG TAB PO PRN ×2 (07:52→20:24)
[2021-12-08] MEDS ORDERED: VANCOMYCIN 1,250 MG in SODIUM CHLORIDE 0.9% 250 ML IVPB SCH (10:00)
[2021-12-08 10:41] LABS: HCT 31.6 % (39.6-50.0); HGB 10.5 g/dL (13.0-17.0); MCH 29.5 pg (27.0-32.0); MCHC 33.2 g/dL (32.0-37.0); MCV 88.8 fL (80.0-97.0); Mean Platelet Volume 10.8 fL (9.5-12.2); NRBC Per 100 WBC 0 /100 WBCS (0.0-0.0); Platelet Count 475 X 10*3/uL (140-440); RBC 3.56 X 10*6/uL (4.40-5.60); RDW 14.8 % (11.5-14.5); WBC 28.47 X 10*3/uL (4.50-10.00)
--- NOTE | 2021-12-08 12:22 | P.NPCON ---
History of Present Illness - Reason for Consult acute renal failure - History of Present Illness Patient is a 57-year-old male with history of simultaneous kidney pancreas transplant at [facility] in 1997. Patient has underlying CK D with baseline creatinine about 1-1.1 mg/dL. Patient is admitted to the hospital with complaints of increased drainage and pain in his left foot. Patient has had a left foot ulcer for which he has been attending the wound clinic for a few months now. His wound had progressively worsened. Patient did complain of low-grade fever at home with decreased oral intake. Blood pressure was low with systolic in the 90s. Patient is maintained on SLY inhibitor's at home Serum creatinine was 2.1 on initial admission and decreased to 1.4 today. Sodium was 124 on admission and increased to 131 today. Patient is maintained on IV fluids and IV antibiotics currently Review of Systems As per HPI Past Medical History Past Medical History: Cancer, Skin Disorder Additional Past Medical History / Comment(s): RT FOOT OPEN AREA, PVD, WAS TX FOR DIABETES UP UNTIL HIS TRANSPLANT(). 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 Past Anesthesia/Blood Transfusion Reactions: No Reported Reaction Past Psychological History: Anxiety Smoking Status: Never smoker - Past Family History Father Additional Family Medical History / Comment(s): Pt states father of motorcycle accident 1970 Mother Family Medical History: No Reported History Medications and Allergies Home Medications Medication Instructions Recorded Confirmed Type Aspirin 81 mg PO DAILY 09/27/13 12/07/21 History Bimatoprost [Lumigan 0.01% Ophth 1 drop BOTH EYES HS 09/27/13 12/07/21 History Soln] Enalapril [Vasotec] 20 mg PO HS 09/27/13 12/07/21 History Lovastatin [Mevacor] 20 mg PO HS 09/27/13 12/07/21 History Multivitamin [Men's Multi-Vitamin] 1 tab PO DAILY 09/27/13 12/07/21 History mycophenolate mofetiL [Cellcept] 500 mg PO BID 09/27/13 12/07/21 History predniSONE 5 mg PO DAILY 09/27/13 12/07/21 History Tacrolimus [Prograf] 1 mg PO BID 01/03/14 12/07/21 History Cholecalciferol [Vitamin D3 (25 25 mcg PO DAILY 12/02/14 12/07/21 History Mcg = 1000 Iu)] Dorzolamide 2% [Trusopt 2%] 1 drop LEFT EYE BID 12/02/14 12/07/21 History Folic Acid 1 mg PO DAILY 10/20/17 12/07/21 History Sodium Polystyrene Sulfonate 15 gm PO Q14D 02/15/18 12/07/21 History [Kayexalate] carvediloL [Coreg] 6.25 mg PO BID 02/15/18 12/07/21 History Brimonidine Tartrate/Timolol 1 drop BOTH EYES BID 11/25/21 12/07/21 History [Combigan 0.2%-0.5% Eye Drops] Calcium Carbonate [Tums] 500 mg PO TID PRN 11/25/21 12/07/21 History Gabapentin 300 mg PO HS 11/25/21 12/07/21 History NIFEdipine XL [Procardia XL] 60 mg PO BID 11/25/21 12/07/21 History Ciprofloxacin HCl [Cipro] 500 mg PO BID 12/07/21 12/07/21 History Ondansetron Odt [Zofran Odt] 4 mg PO Q8H PRN 12/07/21 12/07/21 History Allergies Allergy/AdvReac Type Severity Reaction Status Date / Time latex Allergy Rash/Hives Verified 12/07/21 16:12 Penicillins Allergy Rash/Hives Verified 12/07/21 16:12 Physical Exam Vitals: Vital Signs Temp Pulse Pulse Resp BP BP Pulse Ox 12/08/21 08:00 99.4 F 92 18 113/57 90 L 12/08/21 02:00 97.8 F 76 16 94/53 93 L 12/07/21 20:00 72 17 12/07/21 16:37 97.7 F 72 17 98/55 95 12/07/21 15:11 98.0 F 74 18 101/61 96 Intake and Output 12/07/21 12/08/21 12/08/21 22:59 06:59 14:59 Output Total 350 600 400 Balance -350 -600 -400 Output: Urine 350 600 400 Other: Voiding Method Urinal # Voids 1 1 Weight 63.503 kg Awake, comfortable, not in any acute distress Alert oriented 3 Examination of the heart S1 and S2 Examination of the lungs bilateral breath sounds are heard Abdomen is soft nontender, renal allograft nontender Examination of the lower extremities shows left foot is currently wrapped. 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 Acute kidney injury secondary to low blood pressure and underlying infection, currently improved 2. Status post simultaneous kidney pancreas transplant in 1997 at [facility] 3. Chronic kidney disease stage II with baseline creatinine about 1-1.1 mg/dL 4. Hypovolemic hyponatremia, improved with saline administration 5. Metabolic acidosis non-gap secondary to acute kidney injury and use of calcineurin inhibitors 6. Left foot wound/cellulitis maintained on IV antibiotics Plan: Change IV fluids to IV bicarb Continue with current immunosuppressive regimen Monitor vancomycin levels closely Hold off on SLY inhibitor's Repeat labs in a.m. Check UA next Recommend vascular surgery consultation Thank you for the consultation. We'll continue to follow the patient with you during his hospitalization
[2021-12-08 12:36] LABS: Basophils # (A) 0.07 X 10*3/uL (0.00-0.10); Basophils % (A) 0.2 %; Eosinophils # (A) 0.01 X 10*3/uL (0.04-0.35); Eosinophils % (A) 0 %; Immature Grans, Automated 0.8 %; Lymphocytes # (A) 1.01 X 10*3/uL (0.90-5.00); Lymphocytes % (A) 3.5 %; Monocytes # (A) 1.81 X 10*3/uL (0.20-1.00); Monocytes % (A) 6.4 %; Neutrophils # (A) 25.34 X 10*3/uL (1.80-7.70); Neutrophils % (A) 89.1 %
[2021-12-08] MEDS: DEXTROSE 5% IN WATER 1,000 ML with SODIUM BICARB (1 MEQ/ML) 150 ML IV SCH ×2 (15:03→22:44)
[2021-12-08] MEDS: CEFEPIME 2 GM in SODIUM CHLORIDE 0.9% 100 ML IVPB SCH ×2 (15:04→22:19)
--- NOTE | 2021-12-08 18:07 | P.PN ---
Subjective Progress Note Date: 12/08/21 (delayed charting seen at 1115) Patient is a 61-year-old male with diabetes mellitus status post renal and pancreatic transplant, neuropathy, and prior skin cancer who presented to the ER at the direction of Dr. Guerrero from the outpatient wound care center. Patient has a history of multiple diabetic wounds. Recently he was found to have a plantar ulcer that grew staph aureus and Klebsiella. He has been treated outpatient with Cipro. He continued to have worsening of his symptoms and therefore Dr. Guerrero referred him to the ER. Upon arrival to the ER he was found to have a low blood pressure of 89/54. Laboratory analysis demonstrated a white blood cell count of 22.1, hemoglobin 10.7 which is below his baseline of 12.1, sodium 124, carbon dioxide 19, anion gap 13, BUN 53, creatinine 2.18. In the ER he was admitted and was started on IV fluids, Zosyn, and vancomycin. On review of outpatient lab work it does appear that the patient was seen in the ER on 11/25 and had 2 out of 2 blood cultures resulted positive for staph aureus. Therefore antibiotics will be transitioned to Vanco plus off cefazolin. ID was consulted. ABX transitioned to rocephin. Seen and examined at bedside. He is feeling much better than before. He states his pain is minimal and his foot. Denies any nausea or vomiting. Feels like his appetite is returning. General: nontoxic, no distress, appears at stated age Derm: Dressing in place over left foot, warm, dry Head: atraumatic, normocephalic, symmetric Eyes: EOMI, no lid lag, anicteric sclera Mouth: no lip lesion, mucus membranes moist Cardiovascular: S1S2 reg, no murmur, positive posterior tibial pulse bilateral, Lungs: CTA bilateral, no rhonchi, no rales , no accessory muscle use Abdominal: soft, nontender to palpation, no guarding, no appreciable organomegaly Ext: no gross muscle atrophy, no edema, no contractures Neuro: CN II-XI grossly intact, no focal neuro deficits Psych: Alert, oriented, appropriate affect Assessment/Plan: Osteomyelitis, Infected diabetic ulcer of the left foot, plantar aspect with sepsis -Outpatient cultures consistent with staph aureus and Klebsiella -ID recs: Discussed with ID and pharmacy. Patient's Klebsiella was resistant to cefazolin but sensitive to Rocephin. Given the fact that he had outpatient positive MSSA blood cultures patient will be transitioned to Rocephin. Vancomycin and ceftezole and will be discontinued. - obtain LORRAINE Outpatient blood cultures positive on 11/25 for methicillin sensitive staph aureus -Continue abx as above -Await repeat blood cultures -Check echocardiogram Acute kidney injury in a patient with history of renal transplant, improved Hyponatremia, improved - IV fluids - Nephro recs appreciated - Avoid nephrotoxic agents - Hold SLY inhibitor - tacro and mycophenolate levels pending Anemia, chronic and worse than baseline Thrombocytosis. reactive -Follow CBC -No indication for transfusion at this time -Check iron studies Objective - Vital Signs Vital signs: Vital Signs Temp 97.9 F 12/08/21 14:00 Pulse 70 12/08/21 14:00 Resp 17 12/08/21 14:00 BP 103/51 12/08/21 14:00 Pulse Ox 91 L 12/08/21 14:00 FiO2 Intake & Output 12/07/21 12/08/21 12/08/21 18:59 06:59 18:59 Output Total 350 600 725 Balance -350 -600 -725 Weight 63.503 kg Output: Urine 350 600 725 Other: Voiding Method Urinal # Voids 1 1 - Labs CBC & Chem 7: 12/08/21 06:49 12/08/21 06:49 Labs: Abnormal Lab Results - Last 24 Hours (Table) 12/08/21 12/08/21 Range/Units 06:49 06:49 WBC 28.47 H (4.50-10.00) X 10*3/uL RBC 3.56 L (4.40-5.60) X 10*6/uL Hgb 10.5 L (13.0-17.0) g/dL Hct 31.6 L (39.6-50.0) % RDW 14.8 H (11.5-14.5) % Plt Count 475 H (140-440) X 10*3/uL Plt Count Comment INCREASED A Immature Gran # 0.23 H (0.00-0.04) X 10*3/uL Neutrophils # 25.34 H (1.80-7.70) X 10*3/uL Monocytes # 1.81 H (0.20-1.00) X 10*3/uL Eosinophils # 0.01 L (0.04-0.35) X 10*3/uL Sodium 131 L (137-145) mmol/L Carbon Dioxide 14 L (22-30) mmol/L BUN 41 H (9-20) mg/dL Creatinine 1.40 H (0.66-1.25) mg/dL Calcium 7.9 L (8.4-10.2) mg/dL Total Protein 5.6 L (6.3-8.2) g/dL Albumin 2.6 L (3.5-5.0) g/dL
[2021-12-08] MEDS: metroNIDAZOLE 500 MG TAB PO SCH ×2 (19:08→22:19)
[2021-12-08] MEDS: ATORVASTATIN 10 MG TAB PO SCH (20:24)
[2021-12-08] MEDS: GABAPENTIN 300 MG CAP PO SCH (20:24)
[2021-12-08] MEDS: LATANOPROST 0.005% OPHTH DROPS 2.5 ML BTL BOTH EYES SCH (20:26)
--- NOTE | 2021-12-08 21:58 | P.CONS ---
History of Present Illness - Reason for Consult Consult date: 12/08/21 Left foot wound, failed outpatient Requesting physician: Alia Lucio - Chief Complaint Nonhealing wound to the left foot x weeks - History of Present Illness Patient is a 61-year-old male with a past medical history significant for diabetes mellitus history of end-stage renal disease in this patient s/p renal and pancreatic transplant neuropathy patient apparently has been dealing with a nonhealing wound on the plantar aspect of his left foot and has been u nder care of Dr. Guerrero at the [facility] wound care center patient apparently evaluated in the ER on 11/26/2019 [facility] with the patient did have blood cultures drawn which are currently growing MSSA patient on presentation to the hospital did have low-grade fever of 99.3 F patient did have white count 22,000 which is up to 28.47 today. Creatinine is mildly elevated liver enzymes are normal blood cultures this admission are so far pending patient did have x-ray of the foot which was postsurgical changes of the foot likely Charcot deformity of the midfoot findings suggestive of osseous erosion to the first digit metatarsal head patient was started on Rocephin and vancomycin infectious disease was consulted for further management of antibiotic therapy, patient mention has been dealing with a nonhealing left foot plantar aspect for couple of weeks of no history of any trauma possibly did have a callus that has broke off leading to this ulceration current treatment has been Hydrofera Blue dressing patient denies pain to the left foot plantar wound area and denies having any foul-smelling drainage from it no significant surrounding redness Review of Systems Positive point has been mentioned in the HPI rest of the systems are negative Past Medical History Past Medical History: Cancer, Skin Disorder Additional Past Medical History / Comment(s): RT FOOT OPEN AREA, PVD, WAS TX FOR DIABETES UP UNTIL HIS TRANSPLANT(). 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 Past Anesthesia/Blood Transfusion Reactions: No Reported Reaction Past Psychological History: Anxiety Smoking Status: Never smoker - Past Family History Father Additional Family Medical History / Comment(s): Pt states father of motorcycle accident 1970 Mother Family Medical History: No Reported History Medications and Allergies Home Medications Medication Instructions Recorded Confirmed Type Aspirin 81 mg PO DAILY 09/27/13 12/07/21 History Bimatoprost [Lumigan 0.01% Ophth 1 drop BOTH EYES HS 09/27/13 12/07/21 History Soln] Enalapril [Vasotec] 20 mg PO HS 09/27/13 12/07/21 History Lovastatin [Mevacor] 20 mg PO HS 09/27/13 12/07/21 History Multivitamin [Men's Multi-Vitamin] 1 tab PO DAILY 09/27/13 12/07/21 History mycophenolate mofetiL [Cellcept] 500 mg PO BID 09/27/13 12/07/21 History predniSONE 5 mg PO DAILY 09/27/13 12/07/21 History Tacrolimus [Prograf] 1 mg PO BID 01/03/14 12/07/21 History Cholecalciferol [Vitamin D3 (25 25 mcg PO DAILY 12/02/14 12/07/21 History Mcg = 1000 Iu)] Dorzolamide 2% [Trusopt 2%] 1 drop LEFT EYE BID 12/02/14 12/07/21 History Folic Acid 1 mg PO DAILY 10/20/17 12/07/21 History Sodium Polystyrene Sulfonate 15 gm PO Q14D 02/15/18 12/07/21 History [Kayexalate] carvediloL [Coreg] 6.25 mg PO BID 02/15/18 12/07/21 History Brimonidine Tartrate/Timolol 1 drop BOTH EYES BID 11/25/21 12/07/21 History [Combigan 0.2%-0.5% Eye Drops] Calcium Carbonate [Tums] 500 mg PO TID PRN 11/25/21 12/07/21 History Gabapentin 300 mg PO HS 11/25/21 12/07/21 History NIFEdipine XL [Procardia XL] 60 mg PO BID 11/25/21 12/07/21 History Ciprofloxacin HCl [Cipro] 500 mg PO BID 12/07/21 12/07/21 History Ondansetron Odt [Zofran Odt] 4 mg PO Q8H PRN 12/07/21 12/07/21 History Allergies Allergy/AdvReac Type Severity Reaction Status Date / Time latex Allergy Rash/Hives Verified 12/07/21 16:12 Penicillins Allergy Rash/Hives Verified 12/07/21 16:12 Physical Exam Vitals: Vital Signs Temp Pulse Pulse Resp BP BP Pulse Ox 12/08/21 08:00 99.4 F 92 18 113/57 90 L 12/08/21 02:00 97.8 F 76 16 94/53 93 L 12/07/21 20:00 72 17 12/07/21 16:37 97.7 F 72 17 98/55 95 12/07/21 15:11 98.0 F 74 18 101/61 96 12/07/21 11:12 99.3 F 90 16 89/54 97 Intake and Output 12/07/21 12/08/21 12/08/21 22:59 06:59 14:59 Output Total 350 600 400 Balance -350 -600 -400 Output: Urine 350 600 400 Other: Voiding Method Urinal # Voids 1 1 Weight 63.503 kg GENERAL DESCRIPTION: Middle-aged male lying in bed, no distress. No tachypnea or accessory muscle of respiration use. HEENT: Shows Pallor , no scleral icterus. Oral mucous membrane is dry. No pharyngeal erythema or thrush NECK: Trachea central, no thyromegaly. LUNGS: Unlabored breathing. Clear to auscultation anteriorly. No wheeze or crackle. HEART: S1, S2, regular rate and rhythm. No loud murmur ABDOMEN: Soft, no tenderness , guarding or rigidity, no organomegaly EXTREMITIES: Left foot plantar wound which is deep probing to the bone and purulent drainage which was cultured SKIN: No rash, no masses palpable. NEUROLOGICAL: The patient is awake, alert, oriented x3, mood and affect normal. Results CBC & Chem 7: 12/08/21 06:49 12/08/21 06:49 Labs: Abnormal Lab Results - Last 24 Hours (Table) 12/07/21 12/07/21 12/08/21 Range/Units 13:12 13:12 06:49 WBC 22.1 H (3.8-10.6) k/uL RBC 3.53 L (4.30-5.90) m/uL Hgb 10.7 L (13.0-17.5) gm/dL Hct 32.2 L (39.0-53.0) % Plt Count 493 H (150-450) k/uL Neutrophils # 20.4 H (1.3-7.7) k/uL Lymphocytes # 0.4 L (1.0-4.8) k/uL Sodium 124 L 131 L (137-145) mmol/L Chloride 92 L (98-107) mmol/L Carbon Dioxide 19 L 14 L (22-30) mmol/L BUN 53 H 41 H (9-20) mg/dL Creatinine 2.18 H 1.40 H (0.66-1.25) mg/dL Glucose 126 H (74-99) mg/dL Calcium 8.1 L 7.9 L (8.4-10.2) mg/dL Total Protein 6.0 L 5.6 L (6.3-8.2) g/dL Albumin 3.0 L 2.6 L (3.5-5.0) g/dL Assessment and Plan (1) Cellulitis and abscess of foot Current Visit: Yes Status: Acute Code(s): L03.119 - CELLULITIS OF UNSPECIFIED PART OF LIMB SNOMED Code(s): 316773417 (2) Diabetic foot ulcers Current Visit: Yes Status: Acute Code(s): E11.621 - TYPE 2 DIABETES MELLITUS WITH FOOT ULCER SNOMED Code(s): 457019184 Plan: 1patient with left diabetic foot wound with secondary cellulitis and concern for underlying osteomyelitis as the wound is probing down to the bone and did have some purulent drainage also with abnormal x-ray and this patient recently did have MSSA bacteremia could be the likely source the local culture also grew MSSA and Klebsiella that was resistant to cefazolin. 2renal insufficiency and high risk of nephrotoxicity from vancomycin. 3we will discontinue Rocephin and vancomycin. 4we will start the patient on cefepime 2 g every 12 hours dose has been adjusted to the kidney function. Patient will need at least 6 weeks of IV antibiotic on discharge because of un derlying osteomyelitis. 5blood cultures will be repeated document clearance of bacteremia as the pa tient do have a Mediport to make sure no evidence of any seeding of the port. We will follow on clinical condition and cultures to further adjust medication if needed Thank you for this consultation will follow this patient along with you Time with Patient: Greater than 30
[2021-12-08] MEDS ORDERED: ACETAMINOPHEN TAB 500 MG TAB PO STA (22:27)
[2021-12-09] MEDS: ACETAMINOPHEN TAB 325 MG TAB PO PRN ×2 (01:30→19:46)
[2021-12-09 07:03] LABS: HCT 31.8 % (39.0-53.0); HGB 10.5 gm/dL (13.0-17.5); MCH 30.2 pg (25.0-35.0); MCHC 32.9 g/dL (31.0-37.0); MCV 91.6 fL (80.0-100.0); Mean Platelet Volume 7.7; Platelet Count 554 k/uL (150-450); RBC 3.47 m/uL (4.30-5.90); RDW 14.6 % (11.5-15.5); WBC 21.9 k/uL (3.8-10.6)
[2021-12-09 07:16] LABS: African American GFR (CKD) >90 (>60 ml/min/1.73 sqM); Anion Gap 11 mmol/L; Blood Urea Nitrogen 28 mg/dL (9-20); Calcium 7.8 mg/dL (8.4-10.2); Carbon Dioxide 23 mmol/L (22-30); Chloride 97 mmol/L (98-107); Glucose 132 mg/dL (74-99); Non-African American GFR(CKD) 80 (>60 ml/min/1.73 sqM); Potassium 3.7 mmol/L (3.5-5.1); Sodium 131 mmol/L (137-145)
[2021-12-09 07:18] LABS: African American GFR (CKD) >90 (>60 ml/min/1.73 sqM); Non-African American GFR(CKD) 80 (>60 ml/min/1.73 sqM)
[2021-12-09] MEDS: CEFEPIME 2 GM in SODIUM CHLORIDE 0.9% 100 ML IVPB SCH ×2 (07:31→16:31)
[2021-12-09] MEDS: ASPIRIN 81 MG PO SCH (07:32)
[2021-12-09] MEDS: TACROLIMUS 1 MG CAP PO SCH (07:32)
[2021-12-09] MEDS: FOLIC ACID 1 MG TAB PO SCH (07:32)
[2021-12-09] MEDS: metroNIDAZOLE 500 MG TAB PO SCH ×3 (07:32→21:01)
[2021-12-09] MEDS: predniSONE 5 MG TAB PO SCH (07:32)
[2021-12-09] MEDS: MULTIVITAMINS, THERA 1 EACH TAB PO SCH (07:32)
[2021-12-09] MEDS: DORZOLAMIDE HCL 2% DROPS 10 ML BTL LEFT EYE SCH ×2 (07:33→21:01)
[2021-12-09] MEDS: TIMOLOL 0.5% OPHTH DROPS 5 ML BTL BOTH EYES SCH ×2 (07:33→21:01)
[2021-12-09] MEDS: BRIMONIDINE TARTRATE 0.2% DROPS 5 ML BTL BOTH EYES SCH ×2 (07:34→21:00)
--- NOTE | 2021-12-09 09:08 | P.PN ---
Subjective Patient is seen for follow-up for acute kidney injury mostly prerenal. Extent patient has history of simultaneous kidney pancreas transplant in 1997 at [facility]. Baseline creatinine around 1-1.1 mg/dL. Patient was admitted to the hospital with left foot wound and is currently maintained on antibiotics. Serum creatinine was 2.1 on initial admission with a sodium of 124. This has improved now to sodium of 131 and serum creatinine down to 1.03 mg/dL. No significant complaints today. Good urine output. Being seen by ID. Objective - Vital Signs Vital signs: Vital Signs Temp 98.3 F 12/09/21 07:21 Pulse 79 12/09/21 07:21 Resp 16 12/09/21 07:21 BP 114/49 12/09/21 07:21 Pulse Ox 93 L 12/09/21 07:21 FiO2 Intake & Output 12/08/21 12/09/21 12/09/21 18:59 06:59 18:59 Output Total 1125 900 Balance -1125 -900 Output: Urine 1125 900 Other: # Bowel Movements 1 2 - Exam Awake, comfortable, not in any acute distress Examination of the heart S1 and S2 Examination lungs decreased breath sounds at the bases Abdomen is soft nontender. 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 - Labs CBC & Chem 7: 12/09/21 06:30 12/09/21 06:30 Labs: Abnormal Lab Results - Last 24 Hours (Table) 12/08/21 12/09/21 12/09/21 Range/Units 06:49 06:30 06:30 WBC 28.47 H 21.9 H (4.50-10.00) X 10*3/uL RBC 3.56 L 3.47 L (4.40-5.60) X 10*6/uL Hgb 10.5 L 10.5 L (13.0-17.0) g/dL Hct 31.6 L 31.8 L (39.6-50.0) % RDW 14.8 H (11.5-14.5) % Plt Count 475 H 554 H (140-440) X 10*3/uL Plt Count Comment INCREASED A Immature Gran # 0.23 H (0.00-0.04) X 10*3/uL Neutrophils # 25.34 H (1.80-7.70) X 10*3/uL Monocytes # 1.81 H (0.20-1.00) X 10*3/uL Eosinophils # 0.01 L (0.04-0.35) X 10*3/uL Sodium 131 L (137-145) mmol/L Chloride 97 L (98-107) mmol/L BUN 28 H (9-20) mg/dL Glucose 132 H (74-99) mg/dL Calcium 7.8 L (8.4-10.2) mg/dL Microbiology - Last 24 Hours (Table) 12/08/21 15:21 Wound Culture - Preliminary Foot - Left 12/07/21 16:15 Blood Culture - Preliminary Blood No Growth after 24 hours 12/07/21 16:30 Blood Culture - Preliminary Blood No Growth after 24 hours Assessment and Plan Assessment: 1. Acute kidney injury secondary to low blood pressure and underlying infection, currently improved 2. Status post simultaneous kidney pancreas transplant in 1997 at [facility] 3. Chronic kidney disease stage II with baseline creatinine about 1-1.1 mg/dL 4. Hypovolemic hyponatremia, improved with saline administration 5. Metabolic acidosis non-gap secondary to acute kidney injury and use of calcineurin inhibitors 6. Left foot wound/cellulitis maintained on IV antibiotics Plan: Continue with IV fluids Check Prograf level prior to dose. It needs to be a trough level. Continue with current immunosuppressive therapy DC IV bicarb
[2021-12-09 11:00] LABS: % Iron Saturation 9.83 (15.00-50.00); Iron 13 ug/dL (65-175); Total Iron Binding Capacity 130 ug/dL (228-460)
--- NOTE | 2021-12-09 11:12 | CA ---
Transthoracic Echo Report Name: Rohan Plascencia Age: 61 Gender: M : 1960 Exam Date: 12/09/2021 09:06 Exam Location: [facility] Ht (in): 68 Wt (lb): 140 Ordering Physician: Rosy Lino DO Attending/Referring Phys: [id number], Zoie Motion Picture Projectionist Asia Pearl RDCS Procedure CPT: Indications: murmur, bacteremia Cardiac Hx: Technical Quality: Good Contrast 1: Total Dose (mL): Contrast 2: Total Dose (mL): MEASUREMENTS (Male / Female) Normal Values 2D ECHO LV Diastolic Diameter PLAX 4.5 cm 4.2 - 5.9 / 3.9 - 5.3 cm LV Systolic Diameter PLAX 3.5 cm IVS Diastolic Thickness 1.1 cm 0.6 - 1.0 / 0.6 - 0.9 cm LVPW Diastolic Thickness 1.2 cm 0.6 - 1.0 / 0.6 - 0.9 cm LV Relative Wall Thickness 0.5 RV Internal Dim ED PLAX 3.7 cm LA Systolic Diameter LX 4.0 cm 3.0 - 4.0 / 2.7 - 3.8 cm LA Volume 67.3 cm??? 18 - 58 / 22 - 52 cm??? M-MODE Aortic Root Diameter MM 2.8 cm MV E Point Septal Separation 0.3 cm AV Cusp Separation MM 1.7 cm DOPPLER AV Peak Velocity 160.5 cm/s AV Peak Gradient 10.3 mmHg MV Area PHT 4.4 cm??? MV Deceleration Time 237.5 ms TR Peak Velocity 240.4 cm/s TR Peak Gradient 23.1 mmHg Right Ventricular Systolic Press 27.8 mmHg FINDINGS Left Ventricle Left ventricular ejection fraction is estimated at 60-65 %. Left ventricular cavity size normal. Borderline left ventricular hypertrophy. Right Ventricle Moderate right ventricular dilatation. Right ventricular systolic pressure within normal limits. Right Atrium Normal right atrial size. Left Atrium Mildly increased left atrial volume. Mildly increased left atrial area. No evidence for an atrial septal defect. Mitral Valve Structurally normal mitral valve. No mitral stenosis, regurgitation or prolapse. Aortic Valve Trileaflet aortic valve. No aortic valve stenosis or regurgitation. Tricuspid Valve Mild tricuspid regurgitation. Pulmonic Valve Trace pulmonic regurgitation. Pericardium Normal pericardium. No pericardial effusion. Aorta Normal size aortic root and proximal ascending aorta. CONCLUSIONS Normal LV systolic function with an ejection fraction of 60% Mild tricuspid regurgitation Previewed by: Dr. Ramin Donohue MD (Electronically Signed) Final Date: 09 December 2021 11:11
--- NOTE | 2021-12-09 14:33 | P.PN ---
Subjective Progress Note Date: 12/09/21 (delayed charting seen at 1130) Patient is a 61-year-old male with diabetes mellitus status post renal and pancreatic transplant, neuropathy, and prior skin cancer who presented to the ER at the direction of Dr. Guerrero from the outpatient wound care center. Patient has a history of multiple diabetic wounds. Recently he was found to have a plantar ulcer that grew staph aureus and Klebsiella. He has been treated outpatient with Cipro. He continued to have worsening of his symptoms and therefore Dr. Guerrero referred him to the ER. Upon arrival to the ER he was found to have a low blood pressure of 89/54. Laboratory analysis demonstrated a white blood cell count of 22.1, hemoglobin 10.7 which is below his baseline of 12.1, sodium 124, carbon dioxide 19, anion gap 13, BUN 53, creatinine 2.18. In the ER he was admitted and was started on IV fluids, Zosyn, and vancomycin. On review of outpatient lab work it does appear that the patient was seen in the ER on 11/25 and had 2 out of 2 blood cultures resulted positive for staph aureus. Therefore antibiotics will be transitioned to Vanco plus off cefazolin. ID was consulted. ABX transitioned to cefepime. Had recurrent fevers overnight 12/07/21. Seen and examined at bedside. Doing okay feeling tired and frustrated with all the interruptions. No chest pain. No shortness of breath. General: nontoxic, no distress, appears at stated age Derm: Dressing in place over left foot, warm, dry Head: atraumatic, normocephalic, symmetric Eyes: EOMI, no lid lag, anicteric sclera Mouth: no lip lesion, mucus membranes moist Cardiovascular: S1S2 reg, no murmur, positive posterior tibial pulse bilateral, Lungs: CTA bilateral, no rhonchi, no rales , no accessory muscle use Abdominal: soft, nontender to palpation, no guarding, no appreciable organomegaly Ext: no gross muscle atrophy, no edema, no contractures Neuro: CN II-XI grossly intact, no focal neuro deficits Psych: Alert, oriented, appropriate affect Assessment/Plan: Osteomyelitis, Infected diabetic ulcer of the left foot, plantar aspect with sepsis - Outpatient cultures consistent with staph aureus and Klebsiella - ID recs: cefepime - obtain LORRAINE - await repeat cultures Outpatient blood cultures positive on 11/25 for methicillin sensitive staph aureus -Continue abx as above - repeat blood cultures negative to date - echo without significant valvular disease Acute kidney injury in a patient with history of renal/pancreatic transplant, improved Hyponatremia, improved - IV fluids - Nephro recs appreciated - Avoid nephrotoxic agents - Hold SLY inhibitor - tacro and mycophenolate levels are not toxic, awaiting tacro trough level Anemia, chronic and worse than baseline with low iron stat suspect Fe def anemia with elevated ferritin due to osteo Thrombocytosis. reactive -Follow CBC -No indication for transfusion at this time -ferrous sulfate Objective - Vital Signs Vital signs: Vital Signs Temp 98.6 F 12/09/21 14:00 Pulse 85 12/09/21 14:00 Resp 16 12/09/21 14:00 BP 144/72 12/09/21 14:00 Pulse Ox 94 L 12/09/21 14:00 FiO2 Intake & Output 12/08/21 12/09/21 12/09/21 18:59 06:59 18:59 Output Total 1125 900 Balance -1125 -900 Output: Urine 1125 900 Other: # Bowel Movements 1 2 - Labs CBC & Chem 7: 12/09/21 06:30 12/09/21 06:30 Labs: Abnormal Lab Results - Last 24 Hours (Table) 12/09/21 12/09/21 12/09/21 Range/Units 06:30 06:30 06:30 WBC 21.9 H (3.8-10.6) k/uL RBC 3.47 L (4.30-5.90) m/uL Hgb 10.5 L (13.0-17.5) gm/dL Hct 31.8 L (39.0-53.0) % Plt Count 554 H (150-450) k/uL Sodium 131 L (137-145) mmol/L Chloride 97 L (98-107) mmol/L BUN 28 H (9-20) mg/dL Glucose 132 H (74-99) mg/dL Calcium 7.8 L (8.4-10.2) mg/dL Iron 13 L (65-175) ug/dL TIBC 130 L (228-460) ug/dL % Saturation 9.83 L (15.00-50.00) Transferrin 93.0 L (204.0-354.0) mg/dL Ferritin 622.0 H (22.0-322.0) ng/mL Microbiology - Last 24 Hours (Table) 12/08/21 15:21 Wound Culture - Preliminary Foot - Left 12/07/21 16:15 Blood Culture - Preliminary Blood No Growth after 24 hours 12/07/21 16:30 Blood Culture - Preliminary Blood No Growth after 24 hours
[2021-12-09] MEDS ORDERED: predniSONE 10 MG TAB PO STA (15:26)
[2021-12-09] MEDS: LACTATED RINGERS 1,000 ML IV SCH ×2 (15:47→21:17)
[2021-12-09] MEDS: DEXAMETHASONE SOD PHOSPHATE 4 MG/ML 1 ML VIAL IVP SCH (16:30)
[2021-12-09] MEDS: LACTOBACILLUS ACIDOPH & BULGAR 1 EACH PACKET PO SCH ×2 (16:30→21:00)
[2021-12-09] MEDS: ATORVASTATIN 10 MG TAB PO SCH (21:00)
[2021-12-09] MEDS: GABAPENTIN 300 MG CAP PO SCH (21:00)
[2021-12-09] MEDS: LATANOPROST 0.005% OPHTH DROPS 2.5 ML BTL BOTH EYES SCH (21:01)
[2021-12-10] MEDS: DEXAMETHASONE SOD PHOSPHATE 4 MG/ML 1 ML VIAL IVP SCH ×4 (00:34→23:53)
[2021-12-10] MEDS: CEFEPIME 2 GM in SODIUM CHLORIDE 0.9% 100 ML IVPB SCH ×4 (00:35→23:54)
[2021-12-10 06:17] LABS: HCT 36.4 % (39.0-53.0); HGB 11.5 gm/dL (13.0-17.5); MCH 29.2 pg (25.0-35.0); MCHC 31.5 g/dL (31.0-37.0); MCV 92.7 fL (80.0-100.0); Mean Platelet Volume 7.6; Platelet Count 670 k/uL (150-450); RBC 3.93 m/uL (4.30-5.90); RDW 14.5 % (11.5-15.5); WBC 20.1 k/uL (3.8-10.6)
[2021-12-10 06:30] LABS: African American GFR (CKD) >90 (>60 ml/min/1.73 sqM); Anion Gap 10 mmol/L; Blood Urea Nitrogen 20 mg/dL (9-20); Calcium 8.1 mg/dL (8.4-10.2); Carbon Dioxide 27 mmol/L (22-30); Chloride 98 mmol/L (98-107); Glucose 141 mg/dL (74-99); Non-African American GFR(CKD) 90 (>60 ml/min/1.73 sqM); Potassium 4.2 mmol/L (3.5-5.1); Sodium 135 mmol/L (137-145)
--- NOTE | 2021-12-10 07:18 | P.PN ---
Subjective Progress Note Date: 12/09/21 Principal diagnosis: Left foot wound and osteomyelitis Patient is a 61-year-old male with a past medical history significant for diabetes mellitus history of end-stage renal disease in this patient s/p renal and pancreatic transplant neuropathy patient apparently has been dealing with a nonhealing wound on the plantar aspect of his left foot with a recent positive blood culture and abnormal x-ray suggestive of osteomyelitis. On today's evaluation and that is 12/09/2021, patient denies having any fever or any chills, the patient is currently breathing comfortably denies any worsening pain to the left foot area no chest pain shortness of breath or cough no abdomin al pain no diarrhea Objective - Vital Signs Vital signs: Vital Signs Temp 98.3 F 12/09/21 07:21 Pulse 79 12/09/21 07:21 Resp 16 12/09/21 07:21 BP 114/49 12/09/21 07:21 Pulse Ox 93 L 12/09/21 07:21 FiO2 Intake & Output 12/08/21 12/09/21 12/09/21 18:59 06:59 18:59 Output Total 1125 900 Balance -1125 -900 Output: Urine 1125 900 Other: # Bowel Movements 1 2 - Exam GENERAL DESCRIPTION: A middle-age male lying in bed in no distress RESPIRATORY SYSTEM: Unlabored breathing , decreased breath sounds at bases HEART: S1 S2 regular rate and rhythm , ABDOMEN: Soft , no tenderness EXTREMITIES: No edema feet - Labs CBC & Chem 7: 12/10/21 05:32 12/10/21 05:32 Labs: Abnormal Lab Results - Last 24 Hours (Table) 12/09/21 12/09/21 12/09/21 Range/Units 06:30 06:30 06:30 WBC 21.9 H (3.8-10.6) k/uL RBC 3.47 L (4.30-5.90) m/uL Hgb 10.5 L (13.0-17.5) gm/dL Hct 31.8 L (39.0-53.0) % Plt Count 554 H (150-450) k/uL Sodium 131 L (137-145) mmol/L Chloride 97 L (98-107) mmol/L BUN 28 H (9-20) mg/dL Glucose 132 H (74-99) mg/dL Calcium 7.8 L (8.4-10.2) mg/dL Iron 13 L (65-175) ug/dL TIBC 130 L (228-460) ug/dL % Saturation 9.83 L (15.00-50.00) Transferrin 93.0 L (204.0-354.0) mg/dL Ferritin 622.0 H (22.0-322.0) ng/mL Microbiology - Last 24 Hours (Table) 12/08/21 15:21 Wound Culture - Preliminary Foot - Left 12/07/21 16:15 Blood Culture - Preliminary Blood No Growth after 24 hours 12/07/21 16:30 Blood Culture - Preliminary Blood No Growth after 24 hours Assessment and Plan (1) Cellulitis and abscess of foot Current Visit: Yes Status: Acute Code(s): L03.119 - CELLULITIS OF UNSPECIFIED PART OF LIMB SNOMED Code(s): 272197853 (2) Diabetic foot ulcers Current Visit: Yes Status: Acute Code(s): E11.621 - TYPE 2 DIABETES MELLITUS WITH FOOT ULCER SNOMED Code(s): 753672917 Plan: 1patient with left diabetic foot wound with secondary cellulitis and concern for underlying osteomyelitis as the wound is probing down to the bone and did have some purulent drainage also with abnormal x-ray and this patient recently did have MSSA bacteremia could be the likely source the local culture also grew MSSA and Klebsiella that was resistant to cefazolin. 2renal insufficiency and high risk of nephrotoxicity from vancomycin. 3patient will continue with cefepime 2 g every 12 hours Patient will need at least 6 weeks of IV antibiotic on discharge because of underlying osteomyelitis. 4blood cultures has been repeated and are pending so far Time with Patient: Less than 30
[2021-12-10] MEDS: LACTATED RINGERS 1,000 ML IV SCH (08:19)
[2021-12-10] MEDS ORDERED: predniSONE 5 MG TAB PO SCH (09:00)
[2021-12-10] MEDS: LACTOBACILLUS ACIDOPH & BULGAR 1 EACH PACKET PO SCH ×3 (09:26→21:20)
[2021-12-10] MEDS: metroNIDAZOLE 500 MG TAB PO SCH ×3 (09:26→21:18)
[2021-12-10] MEDS: ASPIRIN 81 MG PO SCH (09:26)
[2021-12-10] MEDS: FOLIC ACID 1 MG TAB PO SCH (09:26)
[2021-12-10] MEDS: MULTIVITAMINS, THERA 1 EACH TAB PO SCH (09:26)
[2021-12-10] MEDS: DORZOLAMIDE HCL 2% DROPS 10 ML BTL LEFT EYE SCH ×2 (09:27→21:19)
[2021-12-10] MEDS: TIMOLOL 0.5% OPHTH DROPS 5 ML BTL BOTH EYES SCH ×2 (09:27→21:19)
[2021-12-10] MEDS: BRIMONIDINE TARTRATE 0.2% DROPS 5 ML BTL BOTH EYES SCH ×2 (09:28→21:19)
--- NOTE | 2021-12-10 14:26 | P.PN ---
Subjective Progress Note Date: 12/10/21 (delayed charting seen at 1045) Patient is a 61-year-old male with diabetes mellitus status post renal and pancreatic transplant, neuropathy, and prior skin cancer who presented to the ER at the direction of Dr. Guerrero from the outpatient wound care center. Patient has a history of multiple diabetic wounds. Recently he was found to have a plantar ulcer that grew staph aureus and Klebsiella. He has been treated outpatient with Cipro. He continued to have worsening of his symptoms and therefore Dr. Guerrero referred him to the ER. Upon arrival to the ER he was found to have a low blood pressure of 89/54. Laboratory analysis demonstrated a white blood cell count of 22.1, hemoglobin 10.7 which is below his baseline of 12.1, sodium 124, carbon dioxide 19, anion gap 13, BUN 53, creatinine 2.18. In the ER he was admitted and was started on IV fluids, Zosyn, and vancomycin. On review of outpatient lab work it does appear that the patient was seen in the ER on 11/25 and had 2 out of 2 blood cultures resulted positive for staph aureus. Therefore antibiotics will be transitioned to Vanco plus off cefazolin. ID was consulted. ABX transitioned to cefepime. Had recurrent fevers overnight 12/08/21. Case was discussed with his transplant team at [facility] and they agreed with holding taro and MMF with initiating dexamethasone therapy. Seen and examined at bedside. Better than yesterday. States his diarrhea is slowing down. Denies chest pain or shortness of breath. General: nontoxic, no distress, appears at stated age Derm: Dressing in place over left foot, warm, dry Head: atraumatic, normocephalic, symmetric Eyes: EOMI, no lid lag, anicteric sclera Mouth: no lip lesion, mucus membranes moist Cardiovascular: S1S2 reg, no murmur, positive posterior tibial pulse bilateral, Lungs: Coarse breath sounds bilateral, no rhonchi, no rales , no accessory muscle use Abdominal: soft, nontender to palpation, no guarding, no appreciable organomegaly Ext: no gross muscle atrophy, no edema, no contractures Neuro: CN II-XI grossly intact, no focal neuro deficits Psych: Alert, oriented, appropriate affect Assessment/Plan: Osteomyelitis, Infected diabetic ulcer of the left foot, plantar aspect with sepsis - Outpatient cultures consistent with staph aureus and Klebsiella - ID recs: cefepime - Await LORRAINE - await repeat cultures to finalized, 12/07 cx shows anaerobic gram negative bacilli - D/W transplant team ot [facility]. Hold tacro and MMF, stop prednisone, start Dex 2 mg q8h Outpatient blood cultures positive on 11/25 for methicillin sensitive staph aureus - Continue abx as above - repeat blood cultures negative to date - echo without significant valvular disease Acute kidney injury in a patient with history of renal/pancreatic transplant, improved Hyponatremia, improved - IV fluids - Nephro recs appreciated - Avoid nephrotoxic agents - Hold SLY inhibitor, resume when okay with nephro - tacro and mycophenolate levels are not toxic, awaiting tacro trough level Anemia, chronic and worse than baseline with low iron stat suspect Fe def anemia with elevated ferritin due to osteo Thrombocytosis. reactive -Follow CBC -No indication for transfusion at this time -ferrous sulfate Active Medications Generic Name Dose Route Start Last Admin Trade Name Freq PRN Reason Stop Dose Admin Acetaminophen 650 mg 12/07/21 15:28 12/09/21 19:46 Acetaminophen Tab 325 Mg Tab PO 650 mg Q6HR PRN Administration Mild Pain or Fever > 100.5 Aspirin 81 mg 12/08/21 09:00 12/10/21 09:26 Aspirin 81 Mg PO 81 mg DAILY MARYLIN Administration Atorvastatin Calcium 10 mg 12/07/21 21:00 12/09/21 21:00 Atorvastatin 10 Mg Tab PO 10 mg HS MARYLIN Administration Brimonidine Tartrate 1 drops 12/07/21 21:00 12/10/21 09:28 Brimonidine Tartrate 0.2% Drops 5 Ml Btl BOTH EYES 1 drops BID AMRYLIN Administration Calcium Carbonate/Glycine 500 mg 12/07/21 18:21 Calcium Carbonate 500 Mg Chewable PO TID PRN Heartburn Dexamethasone Sodium Phosphate 2 mg 12/09/21 16:00 12/10/21 08:20 Dexamethasone Sod Phosphate 4 Mg/Ml 1 Ml Vial IVP 2 mg Q8H MARYLIN Administration Dorzolamide HCl 1 drops 12/07/21 21:00 12/10/21 09:27 Dorzolamide Hcl 2% Drops 10 Ml Btl LEFT EYE 1 drops BID MARYLIN Administration Folic Acid 1 mg 12/08/21 09:00 12/10/21 09:26 Folic Acid 1 Mg Tab PO 1 mg DAILY MARYLIN Administration Gabapentin 300 mg 08/09/22 21:00 12/09/21 21:00 Gabapentin 300 Mg Cap PO 300 mg HS MARYLIN Administration Hydromorphone HCl 0.25 mg 12/07/21 18:15 Hydromorphone 0.5 Mg/0.5 Ml Syringe IVP Q3HR PRN Moderate Pain Hydromorphone HCl 0.5 mg 12/07/21 18:15 12/08/21 07:58 Hydromorphone 0.5 Mg/0.5 Ml Syringe IVP 0.5 mg Q4HR PRN Administration Severe Pain Lactated Ringer's 1,000 mls @ 75 mls/hr 12/09/21 09:15 12/10/21 08:19 Lactated Ringers IV Not Given .[id number] MARYLIN Cefepime HCl 2 gm/ Sodium 100 mls @ 25 mls/hr 12/09/21 16:00 12/10/21 09:25 Chloride IVPB 25 mls/hr Q8HR MARYLIN Administration Protocol Lactobacillus Acidoph/Bulgaricus 1 each 12/09/21 16:00 12/10/21 09:26 Lactobacillus Acidoph & Bulgar 1 Each Packet PO Not Given TID MARYLIN Latanoprost 1 drops 12/07/21 21:00 12/09/21 21:01 Latanoprost 0.005% Ophth Drops 2.5 Ml Btl BOTH EYES 1 drops HS MARYLIN Administration Melatonin 3 mg 12/07/21 18:18 Melatonin 3 Mg Tablet PO HS PRN Insomnia Metronidazole 500 mg 12/08/21 16:00 12/10/21 09:26 Metronidazole 500 Mg Tab PO 500 mg TID MARYLIN Administration Protocol Multivitamins 1 each 12/08/21 09:00 12/10/21 09:26 Multivitamins, Thera 1 Each Tab PO 1 each DAILY MARYLIN Administration Naloxone HCl 0.2 mg 12/07/21 15:28 Naloxone 0.4 Mg/Ml 1 Ml Vial IV Q2M PRN Opioid Reversal Ondansetron HCl 4 mg 12/07/21 18:18 Ondansetron 4 Mg/2 Ml Vial IVP Q8HR PRN Nausea And Vomiting Timolol Maleate 1 drops 12/07/21 21:00 12/10/21 09:27 Timolol 0.5% Ophth Drops 5 Ml Btl BOTH EYES 1 drops BID MARYLIN Administration Objective - Vital Signs Vital signs: Vital Signs Temp 98.5 F 12/10/21 07:23 Pulse 83 12/10/21 07:23 Resp 14 12/10/21 07:23 BP 161/69 12/10/21 07:23 Pulse Ox 95 12/10/21 07:23 FiO2 Intake & Output 12/09/21 12/10/21 12/10/21 18:59 06:59 18:59 Intake Total 540 Balance 540 Intake: Oral 540 Other: # Voids 2 1 # Bowel Movements 3 - Labs CBC & Chem 7: 12/10/21 05:32 12/10/21 05:32 Labs: Abnormal Lab Results - Last 24 Hours (Table) 12/10/21 12/10/21 Range/Units 05:32 05:32 WBC 20.1 H (3.8-10.6) k/uL RBC 3.93 L (4.30-5.90) m/uL Hgb 11.5 L (13.0-17.5) gm/dL Hct 36.4 L (39.0-53.0) % Plt Count 670 H (150-450) k/uL Sodium 135 L (137-145) mmol/L Glucose 141 H (74-99) mg/dL Calcium 8.1 L (8.4-10.2) mg/dL Microbiology - Last 24 Hours (Table) 12/08/21 15:21 Gram Stain - Preliminary Foot - Left Wound Culture - Preliminary 12/07/21 16:15 Blood Culture - Preliminary Blood No Growth after 48 hours 12/07/21 16:30 Blood Culture - Preliminary Blood No Growth after 48 hours
--- NOTE | 2021-12-10 16:26 | P.PN ---
Subjective Progress Note Date: 12/10/21 Follow-up for renal and pancreatic transplant. Objective - Vital Signs Vital signs: Vital Signs Temp 98.5 F 12/10/21 14:02 Pulse 71 12/10/21 14:02 Resp 15 12/10/21 14:02 BP 173/78 12/10/21 14:02 Pulse Ox 97 12/10/21 14:02 FiO2 Intake & Output 12/09/21 12/10/21 12/10/21 18:59 06:59 18:59 Intake Total 540 Balance 540 Intake: Oral 540 Other: # Voids 2 1 # Bowel Movements 3 - Exam No acute distress S1-S2 heard Decreased breath sounds No edema - Labs CBC & Chem 7: 12/10/21 05:32 12/10/21 05:32 Labs: Abnormal Lab Results - Last 24 Hours (Table) 12/10/21 12/10/21 Range/Units 05:32 05:32 WBC 20.1 H (3.8-10.6) k/uL RBC 3.93 L (4.30-5.90) m/uL Hgb 11.5 L (13.0-17.5) gm/dL Hct 36.4 L (39.0-53.0) % Plt Count 670 H (150-450) k/uL Sodium 135 L (137-145) mmol/L Glucose 141 H (74-99) mg/dL Calcium 8.1 L (8.4-10.2) mg/dL Microbiology - Last 24 Hours (Table) 12/08/21 15:21 Gram Stain - Preliminary Foot - Left Wound Culture - Preliminary 12/07/21 16:15 Blood Culture - Preliminary Blood No Growth after 48 hours 12/07/21 16:30 Blood Culture - Preliminary Blood No Growth after 48 hours Assessment and Plan Assessment: #1 status post simultaneous kidney pancreas transplant in 1997 at [place]. #2 CK D2 baseline creatinine 0.9 MG per DL currently at baseline. #3 left foot wound with cellulitis on antibiotics #4 retention with chronic kidney disease Plan: #1 Prograf level 15 yesterday. Currently on hold. Restart Prograf when levels below 8. #2 MMF and prednisone on hold currently on Decadron. #3 check amylase and lipase and renal function in the morning
[2021-12-10] MEDS ORDERED: hydrALAZINE HCL 25 MG TAB PO STA (20:41)
[2021-12-10] MEDS: ATORVASTATIN 10 MG TAB PO SCH (21:17)
[2021-12-10] MEDS: GABAPENTIN 300 MG CAP PO SCH (21:17)
[2021-12-10] MEDS: LATANOPROST 0.005% OPHTH DROPS 2.5 ML BTL BOTH EYES SCH (21:19)
--- NOTE | 2021-12-11 07:15 | P.PN ---
Subjective Progress Note Date: 12/10/21 Principal diagnosis: Left foot wound and osteomyelitis Patient is a 61-year-old male with a past medical history significant for diabetes mellitus history of end-stage renal disease in this patient s/p renal and pancreatic transplant neuropathy patient apparently has been dealing with a nonhealing wound on the plantar aspect of his left foot with a recent positive blood culture and abnormal x-ray suggestive of osteomyelitis. On today's evaluation and that is 12/10/2021, patient remains to be afebrile, the patient is breathing comfortably on room air, the patient denies any worsening pain to the left foot area no chest pain shortness of breath or cough no abdominal pain no diarrhea Objective - Vital Signs Vital signs: Vital Signs Temp 98.5 F 12/10/21 07:23 Pulse 83 12/10/21 07:23 Resp 14 12/10/21 07:23 BP 161/69 12/10/21 07:23 Pulse Ox 95 12/10/21 07:23 FiO2 Intake & Output 12/09/21 12/10/21 12/10/21 18:59 06:59 18:59 Intake Total 540 Balance 540 Intake: Oral 540 Other: # Voids 2 1 # Bowel Movements 3 - Exam GENERAL DESCRIPTION: A middle-age male lying in bed in no distress RESPIRATORY SYSTEM: Unlabored breathing , decreased breath sounds at bases HEART: S1 S2 regular rate and rhythm , ABDOMEN: Soft , no tenderness EXTREMITIES: No edema feet - Labs CBC & Chem 7: 12/10/21 05:32 12/10/21 05:32 Labs: Abnormal Lab Results - Last 24 Hours (Table) 12/10/21 12/10/21 Range/Units 05:32 05:32 WBC 20.1 H (3.8-10.6) k/uL RBC 3.93 L (4.30-5.90) m/uL Hgb 11.5 L (13.0-17.5) gm/dL Hct 36.4 L (39.0-53.0) % Plt Count 670 H (150-450) k/uL Sodium 135 L (137-145) mmol/L Glucose 141 H (74-99) mg/dL Calcium 8.1 L (8.4-10.2) mg/dL Microbiology - Last 24 Hours (Table) 12/08/21 15:21 Gram Stain - Preliminary Foot - Left Wound Culture - Preliminary 12/07/21 16:15 Blood Culture - Preliminary Blood No Growth after 48 hours 12/07/21 16:30 Blood Culture - Preliminary Blood No Growth after 48 hours Assessment and Plan (1) Cellulitis and abscess of foot Current Visit: Yes Status: Acute Code(s): L03.119 - CELLULITIS OF UNSPECIFIED PART OF LIMB SNOMED Code(s): 564623196 (2) Diabetic foot ulcers Current Visit: Yes Status: Acute Code(s): E11.621 - TYPE 2 DIABETES MELLITUS WITH FOOT ULCER SNOMED Code(s): 426006255 Plan: 1patient with left diabetic foot wound with secondary cellulitis and concern for underlying osteomyelitis as the wound is probing down to the bone and did have some purulent drainage also with abnormal x-ray and this patient recently did have MSSA bacteremia could be the likely source the local culture also grew MSSA and Klebsiella that was resistant to cefazolin. 2patient seemed to have shown some clinical improvement and will continue with cefepime 2 g every 8 hours along with oral Flagyl Patient will need at least 6 weeks of IV antibiotic on discharge because of underlying osteomyelitis. Time with Patient: Less than 30
[2021-12-11] MEDS: LACTATED RINGERS 1,000 ML IV SCH ×3 (07:30→21:35)
[2021-12-11] MEDS: LACTOBACILLUS ACIDOPH & BULGAR 1 EACH PACKET PO SCH ×3 (07:43→21:27)
[2021-12-11] MEDS: ASPIRIN 81 MG PO SCH (07:44)
[2021-12-11] MEDS: DEXAMETHASONE SOD PHOSPHATE 4 MG/ML 1 ML VIAL IVP SCH ×2 (07:44→17:30)
[2021-12-11] MEDS: CEFEPIME 2 GM in SODIUM CHLORIDE 0.9% 100 ML IVPB SCH ×2 (07:44→21:24)
[2021-12-11] MEDS: metroNIDAZOLE 500 MG TAB PO SCH ×3 (07:44→21:27)
[2021-12-11] MEDS: FOLIC ACID 1 MG TAB PO SCH (07:44)
[2021-12-11] MEDS: DORZOLAMIDE HCL 2% DROPS 10 ML BTL LEFT EYE SCH ×2 (07:44→21:36)
[2021-12-11] MEDS: MULTIVITAMINS, THERA 1 EACH TAB PO SCH (07:44)
[2021-12-11] MEDS: BRIMONIDINE TARTRATE 0.2% DROPS 5 ML BTL BOTH EYES SCH ×2 (07:45→21:24)
[2021-12-11] MEDS: TIMOLOL 0.5% OPHTH DROPS 5 ML BTL BOTH EYES SCH ×2 (07:45→21:42)
[2021-12-11] MEDS: LATANOPROST 0.005% OPHTH DROPS 2.5 ML BTL BOTH EYES SCH (07:45)
[2021-12-11 07:47] LABS: HGB 11.9 gm/dL (13.0-17.5); MCH 29.3 pg (25.0-35.0); MCHC 31.5 g/dL (31.0-37.0); MCV 93.1 fL (80.0-100.0); Mean Platelet Volume 7.9; Platelet Count 722 k/uL (150-450); RBC 4.08 m/uL (4.30-5.90); RDW 14.8 % (11.5-15.5); WBC 17.7 k/uL (3.8-10.6)
[2021-12-11 08:02] LABS: African American GFR (CKD) 70 (>60 ml/min/1.73 sqM); Amylase 35 U/L (30-110); Anion Gap 10 mmol/L; Blood Urea Nitrogen 32 mg/dL (9-20); Calcium 7.9 mg/dL (8.4-10.2); Carbon Dioxide 24 mmol/L (22-30); Chloride 99 mmol/L (98-107); Glucose 124 mg/dL (74-99); Lipase 34 U/L (23-300); Non-African American GFR(CKD) 61 (>60 ml/min/1.73 sqM); Potassium 4.8 mmol/L (3.5-5.1); Sodium 133 mmol/L (137-145)
--- NOTE | 2021-12-11 11:54 | P.PN ---
Subjective Progress Note Date: 12/11/21 Patient this morning is denying any acute complaints. No history acute issues overnight. Objective - Vital Signs Vital signs: Vital Signs Temp 97.7 F 12/11/21 08:00 Pulse 62 12/11/21 08:00 Resp 17 12/11/21 08:00 BP 184/79 12/11/21 08:00 Pulse Ox 97 12/11/21 08:00 FiO2 Intake & Output 12/10/21 12/11/21 12/11/21 18:59 06:59 18:59 Output Total 700 Balance -700 Output: Urine 700 Other: # Voids 1 - Exam General examination - Alert and Oriented 3 in NAD Heart - + S1S2 no murmurs Lungs - Clear to auscultation Abdomen soft NT ND +ve BS Extremities - No edema BRUSH WASHER - Moving all 4 extremities spontaneously Psych - Calm and cooperative - Labs CBC & Chem 7: 12/11/21 06:39 12/11/21 06:39 Labs: Abnormal Lab Results - Last 24 Hours (Table) 12/11/21 12/11/21 Range/Units 06:39 06:39 WBC 17.7 H (3.8-10.6) k/uL RBC 4.08 L (4.30-5.90) m/uL Hgb 11.9 L (13.0-17.5) gm/dL Hct 38.0 L (39.0-53.0) % Plt Count 722 H (150-450) k/uL Sodium 133 L (137-145) mmol/L BUN 32 H (9-20) mg/dL Creatinine 1.28 H (0.66-1.25) mg/dL Glucose 124 H (74-99) mg/dL Calcium 7.9 L (8.4-10.2) mg/dL Microbiology - Last 24 Hours (Table) 12/08/21 15:21 Gram Stain - Final Foot - Left Wound Culture - Final 12/07/21 16:15 Blood Culture - Preliminary Blood No Growth after 72 hours 12/07/21 16:30 Blood Culture - Preliminary Blood No Growth after 72 hours Assessment and Plan Assessment: Osteomyelitis, Infected diabetic ulcer of the left foot, plantar aspect with sepsis - Outpatient cultures consistent with staph aureus and Klebsiella - ID recs: I did recommend cefepime 2 g every 8 hours with oral Flagyl for at least 6 weeks of IV antibiotics. - Await LORRAINE - await repeat cultures are negative, 12/07 cx shows anaerobic gram negative bacilli - D/W transplant team ot [facility]. Hold tacro and MMF, stop prednisone, start Dex 2 mg q8h. Nephrology managing patient's immunosuppressants Outpatient blood cultures positive on 11/25 for methicillin sensitive staph aureus - Continue abx as above - repeat blood cultures negative to date - echo without significant valvular disease Acute kidney injury in a patient with history of renal/pancreatic transplant, improved Hyponatremia, improved - IV fluids - Nephro recs appreciated - Avoid nephrotoxic agents - Hold SLY inhibitor, resume when okay with nephro - tacro and mycophenolate levels are not toxic -Creatinine is slightly elevated this morning Anemia, chronic and worse than baseline with low iron stat suspect Fe def anemia with elevated ferritin due to osteo Thrombocytosis. reactive -Follow CBC -No indication for transfusion at this time -ferrous sulfate On Monday to discuss her test case developer about arranging for IV antibiotics. Will also discuss with patient's transplant team about recommendations for his immunosuppressants.
--- NOTE | 2021-12-11 14:10 | P.PN ---
Subjective Progress Note Date: 12/11/21 Follow-up for renal and pancreatic transplant. Objective - Vital Signs Vital signs: Vital Signs Temp 97.7 F 12/11/21 08:00 Pulse 62 12/11/21 08:00 Resp 17 12/11/21 08:00 BP 184/79 12/11/21 08:00 Pulse Ox 97 12/11/21 08:00 FiO2 Intake & Output 12/10/21 12/11/21 12/11/21 18:59 06:59 18:59 Output Total 700 Balance -700 Output: Urine 700 Other: Voiding Method Urinal # Voids 1 - Exam No acute distress S1-S2 heard Decreased breath sounds No edema - Labs CBC & Chem 7: 12/11/21 06:39 12/11/21 06:39 Labs: Abnormal Lab Results - Last 24 Hours (Table) 12/11/21 12/11/21 Range/Units 06:39 06:39 WBC 17.7 H (3.8-10.6) k/uL RBC 4.08 L (4.30-5.90) m/uL Hgb 11.9 L (13.0-17.5) gm/dL Hct 38.0 L (39.0-53.0) % Plt Count 722 H (150-450) k/uL Sodium 133 L (137-145) mmol/L BUN 32 H (9-20) mg/dL Creatinine 1.28 H (0.66-1.25) mg/dL Glucose 124 H (74-99) mg/dL Calcium 7.9 L (8.4-10.2) mg/dL Microbiology - Last 24 Hours (Table) 12/08/21 15:21 Gram Stain - Final Foot - Left Wound Culture - Final 12/07/21 16:15 Blood Culture - Preliminary Blood No Growth after 72 hours 12/07/21 16:30 Blood Culture - Preliminary Blood No Growth after 72 hours Assessment and Plan Assessment: #1 status post simultaneous kidney pancreas transplant in 1997 at [place]. #2 CKD2 baseline creatinine 0.9- 1.1 MG per DL currently at baseline. #3 left foot wound with cellulitis on antibiotics #4 hypertension with chronic kidney disease Plan: #1 Prograf level 15 yesterday. Currently on hold. Restart Prograf when levels below 8. #2 check Prograf level tomorrow. #2 MMF and prednisone on hold currently on Decadron. Restart back on MMF. #3 serum amylase and lipase within normal limits. Renal function slightly slow. #4 daily renal labs.
[2021-12-11] MEDS: ATORVASTATIN 10 MG TAB PO SCH (21:23)
[2021-12-11] MEDS: GABAPENTIN 300 MG CAP PO SCH (21:26)
[2021-12-12] MEDS: DEXAMETHASONE SOD PHOSPHATE 4 MG/ML 1 ML VIAL IVP SCH ×3 (01:19→17:39)
[2021-12-12 07:11] LABS: Basophils # (A) 0.1 k/uL (0-0.2); Basophils % (A) 0 %; Eosinophils % (A) 0 %; HCT 38.1 % (39.0-53.0); Lymphocytes # (A) 0.8 k/uL (1.0-4.8); Lymphocytes % (A) 5 %; MCH 28.9 pg (25.0-35.0); MCHC 31.3 g/dL (31.0-37.0); MCV 92.2 fL (80.0-100.0); Mean Platelet Volume 7.2; Monocytes # (A) 0.8 k/uL (0-1.0); Monocytes % (A) 5 %; Neutrophils # (A) 12.6 k/uL (1.3-7.7); Neutrophils % (A) 85 %; Platelet Count 757 k/uL (150-450); RBC 4.14 m/uL (4.30-5.90); WBC 14.8 k/uL (3.8-10.6)
[2021-12-12] MEDS: MULTIVITAMINS, THERA 1 EACH TAB PO SCH (08:19)
[2021-12-12] MEDS: ASPIRIN 81 MG PO SCH (08:19)
[2021-12-12] MEDS: LACTOBACILLUS ACIDOPH & BULGAR 1 EACH PACKET PO SCH ×3 (08:19→21:26)
[2021-12-12] MEDS: CEFEPIME 2 GM in SODIUM CHLORIDE 0.9% 100 ML IVPB SCH ×2 (08:20→21:17)
[2021-12-12] MEDS: FOLIC ACID 1 MG TAB PO SCH (08:20)
[2021-12-12] MEDS: TIMOLOL 0.5% OPHTH DROPS 5 ML BTL BOTH EYES SCH ×2 (08:20→21:26)
[2021-12-12] MEDS: BRIMONIDINE TARTRATE 0.2% DROPS 5 ML BTL BOTH EYES SCH ×2 (08:20→21:16)
[2021-12-12] MEDS: DORZOLAMIDE HCL 2% DROPS 10 ML BTL LEFT EYE SCH ×2 (08:20→21:44)
[2021-12-12] MEDS: metroNIDAZOLE 500 MG TAB PO SCH ×3 (08:24→21:18)
--- NOTE | 2021-12-12 10:35 | P.PN ---
Subjective Progress Note Date: 12/11/21 Principal diagnosis: Left foot wound and osteomyelitis Patient is a 61-year-old male with a past medical history significant for diabetes mellitus history of end-stage renal disease in this patient s/p renal and pancreatic transplant neuropathy patient apparently has been dealing with a nonhealing wound on the plantar aspect of his left foot with a recent positive blood culture and abnormal x-ray suggestive of osteomyelitis. On today's evaluation and that is 12/11/2021, patient is afebrile, the patient is breathing comfortably on room air, the patient pain to the left foot area is controlled , denies chest pain shortness of breath or cough, no abdominal pain no diarrhea Objective - Vital Signs Vital signs: Vital Signs Temp 97.7 F 12/11/21 08:00 Pulse 62 12/11/21 08:00 Resp 17 12/11/21 08:00 BP 184/79 12/11/21 08:00 Pulse Ox 97 12/11/21 08:00 FiO2 Intake & Output 12/10/21 12/11/21 12/11/21 18:59 06:59 18:59 Output Total 700 Balance -700 Output: Urine 700 Other: Voiding Method Urinal # Voids 1 - Exam GENERAL DESCRIPTION: A middle-age male lying in bed in no distress RESPIRATORY SYSTEM: Unlabored breathing , decreased breath sounds at bases HEART: S1 S2 regular rate and rhythm , ABDOMEN: Soft , no tenderness EXTREMITIES: No edema feet - Labs CBC & Chem 7: 12/12/21 06:51 12/11/21 06:39 Labs: Abnormal Lab Results - Last 24 Hours (Table) 12/11/21 12/11/21 Range/Units 06:39 06:39 WBC 17.7 H (3.8-10.6) k/uL RBC 4.08 L (4.30-5.90) m/uL Hgb 11.9 L (13.0-17.5) gm/dL Hct 38.0 L (39.0-53.0) % Plt Count 722 H (150-450) k/uL Sodium 133 L (137-145) mmol/L BUN 32 H (9-20) mg/dL Creatinine 1.28 H (0.66-1.25) mg/dL Glucose 124 H (74-99) mg/dL Calcium 7.9 L (8.4-10.2) mg/dL Microbiology - Last 24 Hours (Table) 12/08/21 15:21 Gram Stain - Final Foot - Left Wound Culture - Final 12/07/21 16:15 Blood Culture - Preliminary Blood No Growth after 72 hours 12/07/21 16:30 Blood Culture - Preliminary Blood No Growth after 72 hours Assessment and Plan (1) Cellulitis and abscess of foot Current Visit: Yes Status: Acute Code(s): L03.119 - CELLULITIS OF UNSPECIFIED PART OF LIMB SNOMED Code(s): 190507804 (2) Diabetic foot ulcers Current Visit: Yes Status: Acute Code(s): E11.621 - TYPE 2 DIABETES MELLITUS WITH FOOT ULCER SNOMED Code(s): 159246172 Plan: 1patient with left diabetic foot wound with secondary cellulitis and concern for underlying osteomyelitis as the wound is probing down to the bone and did have some purulent drainage also with abnormal x-ray and this patient recently did have MSSA bacteremia could be the likely source the local culture also grew MSSA and Klebsiella that was resistant to cefazolin. 2patient has shown some clinical improvement and continue with cefepime 2 g every 8 hours along with oral Flagyl ,Patient will need IV antibiotic on discharge because of underlying osteomyelitis. Time with Patient: Less than 30
--- NOTE | 2021-12-12 12:18 | P.PN ---
Subjective Progress Note Date: 12/12/21 He denies any acute complaints this morning. No acute issues overnight. 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 Psych - Calm and cooperative - Labs CBC & Chem 7: 12/12/21 06:51 12/11/21 06:39 Labs: Abnormal Lab Results - Last 24 Hours (Table) 12/12/21 Range/Units 06:51 WBC 14.8 H (3.8-10.6) k/uL RBC 4.14 L (4.30-5.90) m/uL Hgb 12.0 L (13.0-17.5) gm/dL Hct 38.1 L (39.0-53.0) % Plt Count 757 H (150-450) k/uL Neutrophils # 12.6 H (1.3-7.7) k/uL Lymphocytes # 0.8 L (1.0-4.8) k/uL Microbiology - Last 24 Hours (Table) 12/07/21 16:15 Blood Culture - Preliminary Blood No Growth after 96 hours 12/07/21 16:30 Blood Culture - Preliminary Blood No Growth after 96 hours Assessment and Plan Assessment: Osteomyelitis, Infected diabetic ulcer of the left foot, plantar aspect with sepsis - Outpatient cultures done on 11/25 grew staph aureus and Klebsiella - ID recs: ID recommend cefepime 2 g every 8 hours with oral Flagyl for at least 6 weeks of IV antibiotics. - Cultures done inpatient are negative -Awaiting for final antibiotic recommendations from infectious disease - Transplant team at [facility]. Hold tacrolimus, stop prednisone, start Dex 2 mg q8h. Nephrology restarted MMF. Nephrology managing patient's immunosuppressants Outpatient blood cultures positive on 11/25 for methicillin sensitive staph aureus - Continue abx as above - repeat blood cultures negative to date - echo without significant valvular disease Acute kidney injury in a patient with history of renal/pancreatic transplant, improved Hyponatremia, improved - IV fluids - Nephro recs appreciated - Avoid nephrotoxic agents - Hold SLY inhibitor, resume when okay with nephro - tacro and mycophenolate levels are not toxic -BMP this morning is pending Anemia, chronic and worse than baseline with low iron stat suspect Fe def anemia with elevated ferritin due to osteo Thrombocytosis. reactive -Follow CBC -No indication for transfusion at this time -ferrous sulfate -Stable On Monday to discuss with rn case manager hospice about arranging for IV antibiotics. Will also discuss with patient's transplant team about recommendations for his immunosuppressants.
[2021-12-12 12:43] LABS: African American GFR (CKD) 75.5 (60.0-200.0); Anion Gap 10.9 mmol/L (10.00-18.00); BUN/Creat Ratio 24.71 Ratio (12.00-20.00); Blood Urea Nitrogen 29.9 mg/dL (9.0-27.0); Calcium 8.3 mg/dL (8.7-10.3); Carbon Dioxide 23.6 mmol/L (20.0-27.5); Non-African American GFR(CKD) 65.1 (60.0-200.0); Potassium 4.5 mmol/L (3.5-5.5)
--- NOTE | 2021-12-12 13:53 | P.PN ---
Subjective Progress Note Date: 12/12/21 Follow-up for renal and pancreatic transplant. Objective - Vital Signs Vital signs: Vital Signs Temp 97.5 F L 12/12/21 07:59 Pulse 54 L 12/12/21 07:59 Resp 17 12/12/21 07:59 BP 170/80 12/12/21 07:59 Pulse Ox 96 12/12/21 07:59 FiO2 Intake & Output 12/11/21 12/12/21 12/12/21 18:59 06:59 18:59 Output Total 1800 1200 Balance -1800 -1200 Output: Urine 1800 1200 Other: Voiding Method Urinal Urinal # Bowel Movements 0 - Exam No acute distress S1-S2 heard Decreased breath sounds No edema - Labs CBC & Chem 7: 12/12/21 06:51 12/12/21 06:51 Labs: Abnormal Lab Results - Last 24 Hours (Table) 12/12/21 12/12/21 Range/Units 06:51 06:51 WBC 14.8 H (3.8-10.6) k/uL RBC 4.14 L (4.30-5.90) m/uL Hgb 12.0 L (13.0-17.5) gm/dL Hct 38.1 L (39.0-53.0) % Plt Count 757 H (150-450) k/uL Neutrophils # 12.6 H (1.3-7.7) k/uL Lymphocytes # 0.8 L (1.0-4.8) k/uL BUN 29.9 H (9.0-27.0) mg/dL BUN/Creatinine Ratio 24.71 H (12.00-20.00) Ratio Glucose 134 H (70-110) mg/dL Calcium 8.3 L (8.7-10.3) mg/dL Microbiology - Last 24 Hours (Table) 12/07/21 16:15 Blood Culture - Preliminary Blood No Growth after 96 hours 12/07/21 16:30 Blood Culture - Preliminary Blood No Growth after 96 hours Assessment and Plan Assessment: #1 status post simultaneous kidney pancreas transplant in 1997 at [place]. #2 CKD2 baseline creatinine 0.9- 1.1 MG per DL currently at baseline. #3 left foot wound with cellulitis on antibiotics #4 hypertension with chronic kidney disease Plan: #1 Prograf level 15 on Monday Currently on hold. Restart Prograf when levels below 8. #2 repeat Prograf level pending. #2 currently on MMF and Decadron. Prednisone on hold. #3 serum amylase and lipase within normal limits. Renal function stable. #4 daily renal labs.
[2021-12-12] MEDS: LACTATED RINGERS 1,000 ML IV SCH ×2 (17:40→21:20)
[2021-12-12] MEDS: ATORVASTATIN 10 MG TAB PO SCH (21:16)
[2021-12-12] MEDS: GABAPENTIN 300 MG CAP PO SCH (21:18)
[2021-12-12] MEDS: LATANOPROST 0.005% OPHTH DROPS 2.5 ML BTL BOTH EYES SCH (21:32)
[2021-12-13] MEDS: DEXAMETHASONE SOD PHOSPHATE 4 MG/ML 1 ML VIAL IVP SCH ×2 (00:05→10:29)
[2021-12-13 06:13] LABS: Basophils # (A) 0.1 k/uL (0-0.2); Basophils % (A) 0 %; Eosinophils % (A) 0 %; HCT 41.6 % (39.0-53.0); HGB 12.5 gm/dL (13.0-17.5); Lymphocytes # (A) 0.8 k/uL (1.0-4.8); Lymphocytes % (A) 5 %; MCH 28.2 pg (25.0-35.0); MCV 93.8 fL (80.0-100.0); Mean Platelet Volume 7.1; Monocytes # (A) 0.9 k/uL (0-1.0); Monocytes % (A) 5 %; Neutrophils % (A) 86 %; Platelet Count 724 k/uL (150-450); RBC 4.43 m/uL (4.30-5.90); RDW 15.1 % (11.5-15.5); WBC 17.5 k/uL (3.8-10.6)
[2021-12-13 06:15] LABS: African American GFR (CKD) >90 (>60 ml/min/1.73 sqM); Anion Gap 9 mmol/L; Blood Urea Nitrogen 26 mg/dL (9-20); Calcium 8.1 mg/dL (8.4-10.2); Carbon Dioxide 22 mmol/L (22-30); Chloride 103 mmol/L (98-107); Glucose 129 mg/dL (74-99); Non-African American GFR(CKD) >90 (>60 ml/min/1.73 sqM); Sodium 134 mmol/L (137-145)
[2021-12-13 06:21] LABS: Magnesium 1.5 mg/dL (1.6-2.3); Potassium 4.7 mmol/L (3.5-5.1)
--- NOTE | 2021-12-13 07:31 | P.PN ---
Subjective Progress Note Date: 12/12/21 Principal diagnosis: Left foot wound and osteomyelitis Patient is a 61-year-old male with a past medical history significant for diabetes mellitus history of end-stage renal disease in this patient s/p renal and pancreatic transplant neuropathy patient apparently has been dealing with a nonhealing wound on the plantar aspect of his left foot with a recent positive blood culture and abnormal x-ray suggestive of osteomyelitis. On today's evaluation and that is 12/12/2021, patient continues to be afebrile, the patient is breathing comfortably on room air, the patient pain to the left foot area is controlled , the patient denies chest pain shortness of breath or cough, , the patient denies nausea vomiting abdominal pain no diarrhea Objective - Vital Signs Vital signs: Vital Signs Temp 97.5 F L 12/12/21 07:59 Pulse 54 L 12/12/21 07:59 Resp 17 12/12/21 07:59 BP 170/80 12/12/21 07:59 Pulse Ox 96 12/12/21 07:59 FiO2 Intake & Output 12/11/21 12/12/21 12/12/21 18:59 06:59 18:59 Output Total 1800 1200 Balance -1800 -1200 Output: Urine 1800 1200 Other: Voiding Method Urinal Urinal # Bowel Movements 0 - Exam GENERAL DESCRIPTION: A middle-age male lying in bed in no distress RESPIRATORY SYSTEM: Unlabored breathing , decreased breath sounds at bases HEART: S1 S2 regular rate and rhythm , ABDOMEN: Soft , no tenderness EXTREMITIES: No edema feet - Labs CBC & Chem 7: 12/13/21 05:36 12/13/21 05:36 Labs: Abnormal Lab Results - Last 24 Hours (Table) 12/12/21 12/12/21 Range/Units 06:51 06:51 WBC 14.8 H (3.8-10.6) k/uL RBC 4.14 L (4.30-5.90) m/uL Hgb 12.0 L (13.0-17.5) gm/dL Hct 38.1 L (39.0-53.0) % Plt Count 757 H (150-450) k/uL Neutrophils # 12.6 H (1.3-7.7) k/uL Lymphocytes # 0.8 L (1.0-4.8) k/uL BUN 29.9 H (9.0-27.0) mg/dL BUN/Creatinine Ratio 24.71 H (12.00-20.00) Ratio Glucose 134 H (70-110) mg/dL Calcium 8.3 L (8.7-10.3) mg/dL Microbiology - Last 24 Hours (Table) 12/07/21 16:15 Blood Culture - Preliminary Blood No Growth after 96 hours 12/07/21 16:30 Blood Culture - Preliminary Blood No Growth after 96 hours Assessment and Plan (1) Cellulitis and abscess of foot Current Visit: Yes Status: Acute Code(s): L03.119 - CELLULITIS OF UNSPECIFIED PART OF LIMB SNOMED Code(s): 980262435 (2) Diabetic foot ulcers Current Visit: Yes Status: Acute Code(s): E11.621 - TYPE 2 DIABETES MELLITUS WITH FOOT ULCER SNOMED Code(s): 143046280 Plan: 1patient with left diabetic foot wound with secondary cellulitis and concern for underlying osteomyelitis as the wound is probing down to the bone and did have some purulent drainage also with abnormal x-ray and this patient recently did have MSSA bacteremia could be the likely source the local culture also grew MSSA and Klebsiella that was resistant to cefazolin. 2patient has shown some clinical improvement and the patient white count is trending down down to 14,000, the patient to continue with cefepime 2 g every 8 hours along with oral Flagyl, plan for total of 6 weeks of antibiotic Time with Patient: Less than 30
[2021-12-13] MEDS: CEFEPIME 2 GM in SODIUM CHLORIDE 0.9% 100 ML IVPB SCH ×2 (10:31→17:47)
[2021-12-13] MEDS: metroNIDAZOLE 500 MG TAB PO SCH ×3 (10:33→21:43)
[2021-12-13] MEDS: FOLIC ACID 1 MG TAB PO SCH (10:33)
[2021-12-13] MEDS: LACTOBACILLUS ACIDOPH & BULGAR 1 EACH PACKET PO SCH ×3 (10:33→21:44)
[2021-12-13] MEDS: MULTIVITAMINS, THERA 1 EACH TAB PO SCH (10:33)
[2021-12-13] MEDS: ASPIRIN 81 MG PO SCH (10:34)
[2021-12-13] MEDS: DORZOLAMIDE HCL 2% DROPS 10 ML BTL LEFT EYE SCH ×2 (10:40→21:46)
[2021-12-13] MEDS: TIMOLOL 0.5% OPHTH DROPS 5 ML BTL BOTH EYES SCH ×2 (10:41→21:46)
[2021-12-13] MEDS: BRIMONIDINE TARTRATE 0.2% DROPS 5 ML BTL BOTH EYES SCH ×2 (10:41→21:45)
--- NOTE | 2021-12-13 12:24 | P.PN ---
Subjective Patient is seen for follow-up for acute kidney injury mostly prerenal. Extent patient has history of simultaneous kidney pancreas transplant in 1997 at [facility]. Baseline creatinine around 1-1.1 mg/dL. Patient was admitted to the hospital with left foot wound and is currently maintained on antibiotics. Serum creatinine was 2.1 on initial admission with a sodium of 124. This has improved now to sodium of 134 and serum creatinine down to 0.8 mg/dL. Prograf level was elevated at 15. It is currently on hold. No significant complaints today. Good urine output. Being seen by ID. Objective - Vital Signs Vital signs: Vital Signs Temp 98 F 12/13/21 07:59 Pulse 62 12/13/21 07:59 Resp 18 12/13/21 07:59 BP 202/84 12/13/21 07:59 Pulse Ox 97 12/13/21 07:59 FiO2 Intake & Output 12/12/21 12/13/21 12/13/21 18:59 06:59 18:59 Output Total 1400 700 Balance -1400 -700 Output: Urine 1400 700 Other: Voiding Method Urinal Urinal # Voids 6 1 - Exam Awake, comfortable, not in any acute distress Examination of the heart S1 and S2 Examination lungs decreased breath sounds at the bases Abdomen is soft nontender. 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 grossly intact - Labs CBC & Chem 7: 12/13/21 05:36 12/13/21 05:36 Labs: Abnormal Lab Results - Last 24 Hours (Table) 12/12/21 12/13/21 12/13/21 Range/Units 06:51 05:36 05:36 WBC 17.5 H (3.8-10.6) k/uL Hgb 12.5 L (13.0-17.5) gm/dL MCHC 30.0 L (31.0-37.0) g/dL Plt Count 724 H (150-450) k/uL Neutrophils # 15.0 H (1.3-7.7) k/uL Lymphocytes # 0.8 L (1.0-4.8) k/uL Sodium 134 L (137-145) mmol/L BUN 29.9 H 26 H (9.0-27.0) mg/dL BUN/Creatinine Ratio 24.71 H (12.00-20.00) Ratio Glucose 134 H 129 H (70-110) mg/dL Calcium 8.3 L 8.1 L (8.7-10.3) mg/dL Magnesium 1.5 L (1.6-2.3) mg/dL Microbiology - Last 24 Hours (Table) 12/07/21 16:15 Blood Culture - Preliminary Blood No Growth after 120 hours 12/07/21 16:30 Blood Culture - Preliminary Blood No Growth after 120 hours Assessment and Plan Assessment: 1. Acute kidney injury secondary to low blood pressure and underlying inf ection, currently improved 2. Status post simultaneous kidney pancreas transplant in 1997 at [facility]. Prograf level was elevated at 15. Tacrolimus is currently on hold. Maintained on steroids and CellCept. 3. Chronic kidney disease stage II with baseline creatinine about 1-1.1 mg/dL 4. Hypovolemic hyponatremia, improved with saline administration 5. Metabolic acidosis non-gap secondary to acute kidney injury and use of calcineurin inhibitors 6. Left foot wound/cellulitis maintained on IV antibiotics Plan: Recheck Prograf level Continue antibiotics as per ID Continue with MMF for now
--- NOTE | 2021-12-13 12:33 | P.PN ---
Subjective Progress Note Date: 12/13/21 Patient this morning states that he feels weak. He states that he needs some assistance going to the bathroom. PT OT consult place. I discussed with wind power project manager about possible placement. I also called [facility] patient had his pancreas and kidney transplant. They recommended to discontinue his dexamethasone and resume his immunosuppressive that he was taking at home. Patient has been restarted on mycophenolate, tacrolimus and prednisone. Patient's blood pressure also elevated this morning. I will restart his home BP meds. 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 Psych - Calm and cooperative - Labs CBC & Chem 7: 12/13/21 05:36 12/13/21 05:36 Labs: Abnormal Lab Results - Last 24 Hours (Table) 12/12/21 12/13/21 12/13/21 Range/Units 06:51 05:36 05:36 WBC 17.5 H (3.8-10.6) k/uL Hgb 12.5 L (13.0-17.5) gm/dL MCHC 30.0 L (31.0-37.0) g/dL Plt Count 724 H (150-450) k/uL Neutrophils # 15.0 H (1.3-7.7) k/uL Lymphocytes # 0.8 L (1.0-4.8) k/uL Sodium 134 L (137-145) mmol/L BUN 29.9 H 26 H (9.0-27.0) mg/dL BUN/Creatinine Ratio 24.71 H (12.00-20.00) Ratio Glucose 134 H 129 H (70-110) mg/dL Calcium 8.3 L 8.1 L (8.7-10.3) mg/dL Magnesium 1.5 L (1.6-2.3) mg/dL Microbiology - Last 24 Hours (Table) 12/07/21 16:15 Blood Culture - Preliminary Blood No Growth after 120 hours 12/07/21 16:30 Blood Culture - Preliminary Blood No Growth after 120 hours Assessment and Plan Assessment: Osteomyelitis, Infected diabetic ulcer of the left foot, plantar aspect with sepsis - Outpatient cultures done on 11/25 grew staph aureus and Klebsiella - ID recs: ID recommend cefepime 2 g every 8 hours with oral Flagyl for at least 6 weeks. - Cultures done inpatient are negative - Transplant team at [facility]. I discussed with them on 12/13/2021. Transplant team recommends stopping his dexamethasone which was started while he was inpatient and to resume his home immunosuppressants which include tacrolimus, mycophenolate, prednisone Outpatient blood cultures positive on 11/25 for methicillin sensitive staph aureus - Continue abx as above - repeat blood cultures negative to date - echo without significant valvular disease Acute kidney injury in a patient with history of renal/pancreatic transplant, improved Hyponatremia, improved - IV fluids - Nephro recs appreciated -Resolved Anemia, chronic and worse than baseline with low iron stat suspect Fe def anemia with elevated ferritin due to osteo Thrombocytosis. reactive -Follow CBC -No indication for transfusion at this time -ferrous sulfate -Stable Disposition: Depending on physical therapy. Patient will need to be discharged on IV antibiotics. Patient has a port to which the antibiotics can be given. Plan was discussed with wind power project manager.
--- NOTE | 2021-12-13 13:16 | CDI ---
Documentation Clarification Form Date: 12/13/2021 12:51:43 PM From: Susy Angeles RN, CCDS Admit Date: 12/07/2021 03:31:00 PM Patient Name: Rohan Plascencia Visit Number: [id number] Discharge Date: ATTENTION: The Clinical Documentation Specialists (CDI) and [facility] Coding Staff appreciate your assistance in clarifying documentation. Please respond to the clarification below the line at the bottom and electronically sign. The CDI & [facility] Coding staff will review the response and follow-up if needed. Please note: Queries are made part of the Legal Health Record. If you have any questions, please contact the author of this message via ITS. Dr. Carlos Sow Osteomyelitis is documented in the consult and subsequent progress notes. Additional clarification regarding the cause and acuity of the osteomyelitis is requested. History/Risk Factors: Diabetes Mellitus, Renal and Pancreatic transplant, Clinical Indicators: 61-year-old male with nonhealing wound to his left foot. There is documentation of concern for underlying osteomyelitis as the wound is probing down to the bone and have some purulent drainage and abnormal x-ray. 12/08 Labs: web 28.47, hub 10.5, sodium 131, bun 41, cry 1.40, Wound culture grew MSSA and Klebsiella that was resistant to Cefazolin. . 12/07 Left foot X-Ray Results: Postsurgical change of the foot with pes planus and likely Charcot joint arthropathy of the mid foot. Finding suggestive of osseous erosion to the first digit metatarsal head/neck. There is associated soft tissue swelling. Correlate for osteomyelitis Treatment: Cefepime 2 GM IVPB Q 12 Hours Please clarify the acuity and etiology of the osteomyelitis, if known: Acuity: [ x ] Acute osteomyelitis [ ] Chronic osteomyelitis [ ] Subacute osteomyelitis [ ] Unable to Determine Cause: [ ] Viral (specify organism if know): [ x ] Bacterial (specify organism if know): mssa [ ] Diabetic [ ] Other (please specify): (Template Last Revised: June 2020) MTDD
[2021-12-13] MEDS: MAGNESIUM SULFATE-D5W PMX 1 GM in DEXTROSE/WATER 1 100ML.BAG IVPB SCH ×3 (14:30→22:14)
[2021-12-13] MEDS: carvediloL 6.25 MG TAB PO SCH (17:48)
[2021-12-13] MEDS: lisinopriL 20 MG TAB PO SCH (21:43)
[2021-12-13] MEDS: GABAPENTIN 300 MG CAP PO SCH (21:44)
[2021-12-13] MEDS: ATORVASTATIN 10 MG TAB PO SCH (21:44)
[2021-12-13] MEDS: LATANOPROST 0.005% OPHTH DROPS 2.5 ML BTL BOTH EYES SCH (21:45)
[2021-12-13] MEDS: TACROLIMUS 1 MG CAP PO SCH (21:50)
[2021-12-14] MEDS: CEFEPIME 2 GM in SODIUM CHLORIDE 0.9% 100 ML IVPB SCH ×4 (00:42→23:28)
[2021-12-14] MEDS: MAGNESIUM SULFATE-D5W PMX 1 GM in DEXTROSE/WATER 1 100ML.BAG IVPB SCH (05:06)
[2021-12-14] MEDS ORDERED: MAGNESIUM SULFATE-D5W PMX 1 GM in DEXTROSE/WATER 1 100ML.BAG IVPB SCH (05:15)
--- NOTE | 2021-12-14 07:30 | P.PN ---
Subjective Progress Note Date: 12/13/21 Principal diagnosis: Left foot wound and osteomyelitis Patient is a 61-year-old male with a past medical history significant for diabetes mellitus history of end-stage renal disease in this patient s/p renal and pancreatic transplant neuropathy patient apparently has been dealing with a nonhealing wound on the plantar aspect of his left foot with a recent positive blood culture and abnormal x-ray suggestive of osteomyelitis. On today's evaluation and that is 12/13/2021, patient remains to be afebrile, the patient is breathing comfortably on room air, the patient pain to the left foot area is controlled , the patient denies chest pain shortness of breath or cough, some nausea but no vomiting no abdominal pain no diarrhea Objective - Vital Signs Vital signs: Vital Signs Temp 98 F 12/13/21 07:59 Pulse 62 12/13/21 07:59 Resp 18 12/13/21 07:59 BP 202/84 12/13/21 07:59 Pulse Ox 97 12/13/21 07:59 FiO2 Intake & Output 12/12/21 12/13/21 12/13/21 18:59 06:59 18:59 Output Total 1400 700 Balance -1400 -700 Output: Urine 1400 700 Other: Voiding Method Urinal Urinal # Voids 6 1 - Exam GENERAL DESCRIPTION: A middle-age male lying in bed in no distress RESPIRATORY SYSTEM: Unlabored breathing , decreased breath sounds at bases HEART: S1 S2 regular rate and rhythm , ABDOMEN: Soft , no tenderness EXTREMITIES: No edema feet - Labs CBC & Chem 7: 12/13/21 05:36 12/13/21 05:36 Labs: Abnormal Lab Results - Last 24 Hours (Table) 12/12/21 12/13/21 12/13/21 Range/Units 06:51 05:36 05:36 WBC 17.5 H (3.8-10.6) k/uL Hgb 12.5 L (13.0-17.5) gm/dL MCHC 30.0 L (31.0-37.0) g/dL Plt Count 724 H (150-450) k/uL Neutrophils # 15.0 H (1.3-7.7) k/uL Lymphocytes # 0.8 L (1.0-4.8) k/uL Sodium 134 L (137-145) mmol/L BUN 29.9 H 26 H (9.0-27.0) mg/dL BUN/Creatinine Ratio 24.71 H (12.00-20.00) Ratio Glucose 134 H 129 H (70-110) mg/dL Calcium 8.3 L 8.1 L (8.7-10.3) mg/dL Magnesium 1.5 L (1.6-2.3) mg/dL Microbiology - Last 24 Hours (Table) 12/07/21 16:15 Blood Culture - Preliminary Blood No Growth after 120 hours 12/07/21 16:30 Blood Culture - Preliminary Blood No Growth after 120 hours Assessment and Plan (1) Cellulitis and abscess of foot Current Visit: Yes Status: Acute Code(s): L03.119 - CELLULITIS OF UNSPECIFIED PART OF LIMB SNOMED Code(s): 566443513 (2) Diabetic foot ulcers Current Visit: Yes Status: Acute Code(s): E11.621 - TYPE 2 DIABETES MELLITUS WITH FOOT ULCER SNOMED Code(s): 511970856 Plan: 1patient with left diabetic foot wound with secondary cellulitis and concern for underlying osteomyelitis as the wound is probing down to the bone and did have some purulent drainage also with abnormal x-ray and this patient recently did have MSSA bacteremia could be the likely source the local culture also grew MSSA and Klebsiella that was resistant to cefazolin. 2patient clinical Condition stable as for as bacteremia and infection is concerned, the patient to continue with cefepime 2 g every 8 hours along with oral Flagyl, white count is slightly up and will monitor closely monitor, the patient mother at the bedside and multiple questions were answered Time with Patient: Less than 30
--- NOTE | 2021-12-14 07:38 | US ---
EXAMINATION TYPE: US arterial LE multi level DATE OF EXAM: 12/09/2021 6:35 PM CLINICAL HISTORY: PAD, with LORRAINE. PAD. Wound bottom of left foot. Left brachial pressure deferred due to dialysis graft. Toe waveforms and pressures not obtained due to severely deformed toes. Left PT wa s inaudible. Unable to obtain pressures above left DP due to patient movement. Limited exam. Comparison: Prior study 2020 Doppler Waveforms: Right: Monophasic Left: Monophasic Ankle-Brachial Indices: Right: 0.68 Left: 0.57 Toe Brachial Indices: Right: Unable to obtain Left: Unable to obtain IMPRESSION: Diminished LORRAINE values bilaterally on current study. Loss of phasicity redemonstrated. At least moderate peripheral arterial disease bilaterally is present. Further workup and follow-up advi sed.
[2021-12-14] MEDS: BRIMONIDINE TARTRATE 0.2% DROPS 5 ML BTL BOTH EYES SCH ×2 (08:36→21:00)
[2021-12-14] MEDS: carvediloL 6.25 MG TAB PO SCH ×2 (08:36→18:28)
[2021-12-14] MEDS: FOLIC ACID 1 MG TAB PO SCH (08:36)
[2021-12-14] MEDS: metroNIDAZOLE 500 MG TAB PO SCH ×3 (08:36→21:01)
[2021-12-14] MEDS: LACTOBACILLUS ACIDOPH & BULGAR 1 EACH PACKET PO SCH ×3 (08:36→21:01)
[2021-12-14] MEDS: MULTIVITAMINS, THERA 1 EACH TAB PO SCH (08:36)
[2021-12-14] MEDS: ASPIRIN 81 MG PO SCH (08:36)
[2021-12-14] MEDS: DORZOLAMIDE HCL 2% DROPS 10 ML BTL LEFT EYE SCH ×2 (08:36→21:00)
[2021-12-14] MEDS: TACROLIMUS 1 MG CAP PO SCH ×2 (08:37→21:02)
[2021-12-14] MEDS: predniSONE 5 MG TAB PO SCH (08:37)
[2021-12-14] MEDS: TIMOLOL 0.5% OPHTH DROPS 5 ML BTL BOTH EYES SCH ×2 (08:42→21:06)
[2021-12-14 09:09] LABS: HCT 34.7 % (39.6-50.0); HGB 11.7 g/dL (13.0-17.0); MCH 29.8 pg (27.0-32.0); MCHC 33.7 g/dL (32.0-37.0); MCV 88.3 fL (80.0-97.0); Mean Platelet Volume 9.6 fL (9.5-12.2); NRBC Per 100 WBC 0 /100 WBCS (0.0-0.0); Platelet Count 738 X 10*3/uL (140-440); RBC 3.93 X 10*6/uL (4.40-5.60); RDW 15.5 % (11.5-14.5)
[2021-12-14 09:27] LABS: Anion Gap 10.6 mmol/L (10.00-18.00); BUN/Creat Ratio 23.89 Ratio (12.00-20.00); Blood Urea Nitrogen 21.5 mg/dL (9.0-27.0); Calcium 8.6 mg/dL (8.7-10.3); Carbon Dioxide 23.4 mmol/L (20.0-27.5); Magnesium 2.1 mg/dL (1.5-2.4); Non-African American GFR(CKD) 93.2 (60.0-200.0); Potassium 3.9 mmol/L (3.5-5.5)
--- NOTE | 2021-12-14 10:06 | P.PN ---
Subjective Patient is seen in follow-up for renal transplant management. Patient received simultaneous pancreatic kidney transplant from [facility]. Resting in bed. Denies chest pain or shortness of breath. Oral intake fair. Has been voiding. Creatinine 0.9. Nonoliguric. Vital signs are stable. General: Awake. No acute distress. HEENT: Head exam is unremarkable. LUNGS: Breath sounds decreased. HEART: Rate and Rhythm are regular. ABDOMEN: Soft, no distention. EXTREMITITES: No edema. Left foot wrapped. No drainage noted. Objective - Vital Signs Vital signs: Vital Signs Temp 99.2 F 12/14/21 07:58 Pulse 76 12/14/21 07:58 Resp 17 12/14/21 07:58 BP 119/54 12/14/21 07:58 Pulse Ox 95 12/14/21 07:58 FiO2 Intake & Output 12/13/21 12/14/21 12/14/21 18:59 06:59 18:59 Intake Total 400 Output Total 700 600 Balance -300 -600 Intake: Oral 400 Output: Urine 700 600 Other: Voiding Method Urinal Urinal # Voids 2 # Bowel Movements 2 - Labs CBC & Chem 7: 12/14/21 05:31 12/14/21 05:31 Labs: Abnormal Lab Results - Last 24 Hours (Table) 12/14/21 12/14/21 Range/Units 05:31 05:31 WBC 22.50 H (4.50-10.00) X 10*3/uL RBC 3.93 L (4.40-5.60) X 10*6/uL Hgb 11.7 L (13.0-17.0) g/dL Hct 34.7 L (39.6-50.0) % RDW 15.5 H (11.5-14.5) % Plt Count 738 H (140-440) X 10*3/uL BUN/Creatinine Ratio 23.89 H (12.00-20.00) Ratio Calcium 8.6 L (8.7-10.3) mg/dL Microbiology - Last 24 Hours (Table) 12/07/21 16:15 Blood Culture - Final Blood No Growth after 144 hours 12/07/21 16:30 Blood Culture - Final Blood No Growth after 144 hours Assessment and Plan Plan: Assessment: 1. Acute kidney injury mostly prerenal secondary to hypotension and infection. Improved. 2. Status post simultaneous kidney pancreas transplant in 1997 at [facility]. 3. Chronic kidney disease stage I with baseline creatinine near 1. 4. Left foot wound and cellulitis maintained on antibiotics. ID following. 5. Hypertension with chronic kidney disease. Stable. 6. Hypomagnesemia from poor intake and tacrolimus. Replaced. Better. Plan: Maintained immunosuppression meds - hold CellCept tonight and AM dose due to persistent infection. Follow-up repeat Prograf level. Decrease nifedipine to 60 mg once daily and hold for systolic blood pressure less than 120/70. Avoid nephrotoxins. Continue to monitor renal function and urine output.
--- NOTE | 2021-12-14 11:05 | P.PN ---
Subjective Progress Note Date: 12/14/21 Principal diagnosis: Foot infection Patient states that he feels like he is ''going to '', he was not able to specify where that feeling is coming from, he is very weak. Denied any other symptoms however. No pain, sob, no n/v. No fevers or chills. Objective - Vital Signs Vital signs: Vital Signs Temp 99.2 F 12/14/21 07:58 Pulse 76 12/14/21 07:58 Resp 17 12/14/21 07:58 BP 119/54 12/14/21 07:58 Pulse Ox 95 12/14/21 07:58 FiO2 Intake & Output 12/13/21 12/14/21 12/14/21 18:59 06:59 18:59 Intake Total 400 Output Total 700 600 Balance -300 -600 Intake: Oral 400 Output: Urine 700 600 Other: Voiding Method Urinal Urinal # Voids 2 # Bowel Movements 2 - Exam Constitutional: No acute distress, conversant, pleasant Eyes:Anicteric sclerae, moist conjunctiva, no lid-lag, PERRLA, ENMT: Oropharynx clear, no erythema, exudates Neck: Supple, FROM, no masses, or JVD, No carotid bruits, No thyromegaly Lungs: Clear to auscultation, Clear to percussion, Normal respiratory effort, no accessory muscle use Cardiovascular: Heart regular in rate and rhythm, No murmurs, gallops, or rubs, No peripheral edema Abdominal: Soft, Nontender, no guarding, rebound or rigidity, Normoactive bowel sounds, No hepatomegaly, No splenomegaly, No palpable mass Skin: Normal temperature, tone, texture, turgor, no induration, No subcutaneous nodules, No rash, lesions, No ulcers Extremities: No digital cyanosis, No clubbing, Pedal pulses intact and symmetrical, Radial pulses intact and symmetrical, No calf tenderness Psychiatric: Alert and oriented to person, place and time, appropriate affect, intact judgement Neuro: Muscles Strength 5/5 in all 4 extremities, Sensation to light touch grossly present throughout, Cranial nerves II-XII grossly intact, no focal sensory deficits - Labs CBC & Chem 7: 12/14/21 05:31 12/14/21 05:31 Labs: Abnormal Lab Results - Last 24 Hours (Table) 12/14/21 12/14/21 Range/Units 05:31 05:31 WBC 22.50 H (4.50-10.00) X 10*3/uL RBC 3.93 L (4.40-5.60) X 10*6/uL Hgb 11.7 L (13.0-17.0) g/dL Hct 34.7 L (39.6-50.0) % RDW 15.5 H (11.5-14.5) % Plt Count 738 H (140-440) X 10*3/uL BUN/Creatinine Ratio 23.89 H (12.00-20.00) Ratio Calcium 8.6 L (8.7-10.3) mg/dL Microbiology - Last 24 Hours (Table) 12/07/21 16:15 Blood Culture - Final Blood No Growth after 144 hours 12/07/21 16:30 Blood Culture - Final Blood No Growth after 144 hours Assessment and Plan Plan: Osteomyelitis, Infected diabetic ulcer of the left foot, plantar aspect with sepsis -Now with worsening WBC, D/w ID will evaluate. - Outpatient cultures done on 11/25 grew staph aureus and Klebsiella---Cultures done inpatient are negative - ID recs: ID recommend cefepime 2 g every 8 hours with oral Flagyl for at least 6 weeks. - Case d/w transplant team at [facility], resumed his home immunosuppressants which include tacrolimus, mycophenolate, prednisone Outpatient blood cultures positive on 11/25 for methicillin sensitive staph aureus - Continue abx as above - repeat blood cultures negative to date - echo without significant valvular disease Acute kidney injury in a patient with history of renal/pancreatic transplant, improved Hyponatremia, improved - IV fluids - Nephro recs appreciated -Resolved Anemia, chronic and worse than baseline with low iron stat suspect Fe def anemia with elevated ferritin due to osteo Thrombocytosis. reactive -Follow CBC -No indication for transfusion at this time -ferrous sulfate -Stable Disposition: Once cleared by ID. Patient will need to be discharged on IV antibiotics. Patient has a port to which the antibiotics can be given. Plan was discussed with family independence case manager.
[2021-12-14 11:22] LABS: Basophils # (M) 0 X 10*3/uL (0.00-0.10); Eosinophils # (M) 0 X 10*3/uL (0.04-0.35); Metamyelocytes % 1 % (0-0); Monocytes # (M) 1.13 X 10*3/uL (0.20-1.00); Myelocytes % 2 % (0-0); Neutrophils % (M) 88 %
[2021-12-14] MEDS: NYSTATIN 100,000 UNIT/ML SUSP 500,000 UNIT/5 ML CUP PO SCH ×3 (15:18→22:11)
[2021-12-14 15:24] VITALS: BMI 21.2
[2021-12-14] MEDS: GABAPENTIN 300 MG CAP PO SCH (21:01)
[2021-12-14] MEDS: lisinopriL 20 MG TAB PO SCH (21:01)
[2021-12-14] MEDS: ATORVASTATIN 10 MG TAB PO SCH (21:01)
[2021-12-14] MEDS: LATANOPROST 0.005% OPHTH DROPS 2.5 ML BTL BOTH EYES SCH (21:06)
--- NOTE | 2021-12-14 23:01 | P.PN ---
Subjective Progress Note Date: 12/14/21 Principal diagnosis: Left foot wound and osteomyelitis Patient is a 61-year-old male with a past medical history significant for diabetes mellitus history of end-stage renal disease in this patient s/p renal and pancreatic transplant neuropathy patient apparently has been dealing with a nonhealing wound on the plantar aspect of his left foot with a recent positive blood culture and abnormal x-ray suggestive of osteomyelitis. On today's evaluation and that is 12/14/2021, patient continues to be afebrile, the patient is breathing comfortably on room air, the patient denies pain to the left foot area , the patient denies having any chest pain or shortness of breath or cough no abdominal pain and no diarrhea Objective - Vital Signs Vital signs: Vital Signs Temp 99.2 F 12/14/21 07:58 Pulse 76 12/14/21 07:58 Resp 17 12/14/21 07:58 BP 119/54 12/14/21 07:58 Pulse Ox 95 12/14/21 07:58 FiO2 Intake & Output 12/13/21 12/14/21 12/14/21 18:59 06:59 18:59 Intake Total 400 Output Total 700 600 Balance -300 -600 Intake: Oral 400 Output: Urine 700 600 Other: Voiding Method Urinal Urinal # Voids 2 # Bowel Movements 2 - Exam GENERAL DESCRIPTION: A middle-age male lying in bed in no distress RESPIRATORY SYSTEM: Unlabored breathing , decreased breath sounds at bases HEART: S1 S2 regular rate and rhythm , ABDOMEN: Soft , no tenderness EXTREMITIES: No edema feet - Labs CBC & Chem 7: 12/14/21 05:31 12/14/21 05:31 Labs: Abnormal Lab Results - Last 24 Hours (Table) 12/14/21 12/14/21 Range/Units 05:31 05:31 WBC 22.50 H (4.50-10.00) X 10*3/uL RBC 3.93 L (4.40-5.60) X 10*6/uL Hgb 11.7 L (13.0-17.0) g/dL Hct 34.7 L (39.6-50.0) % RDW 15.5 H (11.5-14.5) % Plt Count 738 H (140-440) X 10*3/uL BUN/Creatinine Ratio 23.89 H (12.00-20.00) Ratio Calcium 8.6 L (8.7-10.3) mg/dL Microbiology - Last 24 Hours (Table) 12/07/21 16:15 Blood Culture - Final Blood No Growth after 144 hours 12/07/21 16:30 Blood Culture - Final Blood No Growth after 144 hours Assessment and Plan (1) Cellulitis and abscess of foot Current Visit: Yes Status: Acute Code(s): L03.119 - CELLULITIS OF UNSPECIFIED PART OF LIMB SNOMED Code(s): 866256853 (2) Diabetic foot ulcers Current Visit: Yes Status: Acute Code(s): E11.621 - TYPE 2 DIABETES MELLITUS WITH FOOT ULCER SNOMED Code(s): 009430483 Plan: 1patient with left diabetic foot wound with secondary cellulitis and concern for underlying osteomyelitis as the wound is probing down to the bone and did have some purulent drainage also with abnormal x-ray and this patient recently did have MSSA bacteremia could be the likely source the local culture also grew MSSA and Klebsiella that was resistant to cefazolin. 2patient noticed to have slight worsening of his white count which is up to 22,000 today however the patient seemed to be clinically doing well, we'll hold discharge for today, continue his cefepime and Flagyl local wound care with Aquacel silver dressing repeat inflammatory markers and CBC tomorrow discussed with the medical team Time with Patient: Less than 30
[2021-12-15] MEDS: TIMOLOL 0.5% OPHTH DROPS 5 ML BTL BOTH EYES SCH ×2 (08:07→21:08)
[2021-12-15] MEDS: BRIMONIDINE TARTRATE 0.2% DROPS 5 ML BTL BOTH EYES SCH ×2 (08:07→21:07)
[2021-12-15] MEDS: DORZOLAMIDE HCL 2% DROPS 10 ML BTL LEFT EYE SCH ×2 (08:07→21:06)
[2021-12-15] MEDS: FOLIC ACID 1 MG TAB PO SCH (08:08)
[2021-12-15] MEDS: metroNIDAZOLE 500 MG TAB PO SCH ×3 (08:08→21:08)
[2021-12-15] MEDS: predniSONE 5 MG TAB PO SCH (08:08)
[2021-12-15] MEDS: LACTOBACILLUS ACIDOPH & BULGAR 1 EACH PACKET PO SCH ×3 (08:09→21:08)
[2021-12-15] MEDS: CEFEPIME 2 GM in SODIUM CHLORIDE 0.9% 100 ML IVPB SCH ×3 (08:09→23:50)
[2021-12-15] MEDS: NYSTATIN 100,000 UNIT/ML SUSP 500,000 UNIT/5 ML CUP PO SCH ×4 (08:09→23:49)
[2021-12-15] MEDS: carvediloL 6.25 MG TAB PO SCH ×2 (08:09→16:41)
[2021-12-15] MEDS: ASPIRIN 81 MG PO SCH (08:09)
[2021-12-15] MEDS: MULTIVITAMINS, THERA 1 EACH TAB PO SCH (08:10)
[2021-12-15] MEDS: TACROLIMUS 1 MG CAP PO SCH ×2 (08:11→21:07)
[2021-12-15 09:24] LABS: Basophils # (A) 0.09 X 10*3/uL (0.00-0.10); Basophils % (A) 0.5 %; Eosinophils # (A) 0.07 X 10*3/uL (0.04-0.35); Eosinophils % (A) 0.4 %; HCT 31.7 % (39.6-50.0); HGB 10.7 g/dL (13.0-17.0); Immature Grans, Automated 4.7 %; Lymphocytes # (A) 2.02 X 10*3/uL (0.90-5.00); Lymphocytes % (A) 11.5 %; MCH 29.3 pg (27.0-32.0); MCHC 33.8 g/dL (32.0-37.0); MCV 86.8 fL (80.0-97.0); Mean Platelet Volume 9.1 fL (9.5-12.2); Monocytes # (A) 1.65 X 10*3/uL (0.20-1.00); Monocytes % (A) 9.4 %; NRBC Per 100 WBC 0 /100 WBCS (0.0-0.0); Neutrophils # (A) 12.98 X 10*3/uL (1.80-7.70); Neutrophils % (A) 73.5 %; Platelet Count 573 X 10*3/uL (140-440); RBC 3.65 X 10*6/uL (4.40-5.60); RDW 15.5 % (11.5-14.5); WBC 17.64 X 10*3/uL (4.50-10.00)
[2021-12-15 10:18] LABS: Albumin 2.5 g/dL (3.8-4.9); Albumin/Globulin Ratio 0.93 (1.60-3.17); Anion Gap 9.7 mmol/L (10.00-18.00); BUN/Creat Ratio 22.78 Ratio (12.00-20.00); Blood Urea Nitrogen 20.5 mg/dL (9.0-27.0); C Reactive Protein 9.5 mg/dL (0.00-0.80); Calcium 8.4 mg/dL (8.7-10.3); Carbon Dioxide 21.3 mmol/L (20.0-27.5); Globulin 2.7 g/dL (1.6-3.3); Magnesium 1.9 mg/dL (1.5-2.4); Non-African American GFR(CKD) 93.2 (60.0-200.0); Potassium 3.8 mmol/L (3.5-5.5); Total Bilirubin 0.5 mg/dL (0.30-1.20); Total Protein 5.2 g/dL (6.2-8.2)
--- NOTE | 2021-12-15 10:21 | P.PN ---
Subjective Patient is seen in follow-up for renal transplant management. Patient received simultaneous pancreatic kidney transplant from [facility]. Resting in bed. Denies chest pain or shortness of breath. Oral intake fair. Has been voiding. Creatinine 0.9 yesterday. Nonoliguric. Vital signs are stable. General: Awake. No acute distress. HEENT: Head exam is unremarkable. LUNGS: Breath sounds decreased. HEART: Rate and Rhythm are regular. ABDOMEN: Soft, no distention. EXTREMITITES: No edema. Left foot wrapped. No drainage noted. Objective - Vital Signs Vital signs: Vital Signs Temp 99.5 F 12/15/21 07:43 Pulse 77 12/15/21 07:43 Resp 18 12/15/21 07:43 BP 120/55 12/15/21 07:43 Pulse Ox 96 12/15/21 07:43 FiO2 Intake & Output 12/14/21 12/15/21 12/15/21 18:59 06:59 18:59 Intake Total 100 296 Output Total 600 700 400 Balance -500 -700 -104 Weight 63.503 kg Intake: Intake, IV Titration 100 Amount Cefepime 2 gm In Sodium 100 Chloride 0.9% 100 ml @ 25 mls/hr IVPB Q8HR [facility] Rx# :[id number] Oral 296 Output: Urine 600 700 400 Other: Voiding Method Urinal - Labs CBC & Chem 7: 12/15/21 06:24 12/14/21 05:31 Labs: Abnormal Lab Results - Last 24 Hours (Table) 12/14/21 12/15/21 12/15/21 Range/Units 05:31 06:24 06:24 WBC 17.64 H (4.50-10.00) X 10*3/uL RBC 3.65 L (4.40-5.60) X 10*6/uL Hgb 10.7 L (13.0-17.0) g/dL Hct 31.7 L (39.6-50.0) % RDW 15.5 H (11.5-14.5) % Plt Count 573 H (140-440) X 10*3/uL Plt Count Comment INCREASED A MPV 9.1 L (9.5-12.2) fL Metamyelocytes % 1 H (0-0) % Myelocytes % 2 H (0-0) % Immature Gran # 0.83 H (0.00-0.04) X 10*3/uL Neutrophils # 12.98 H (1.80-7.70) X 10*3/uL Neutrophils # (Manual) 19.80 H (2.00-8.90) X 10*3/uL Monocytes # 1.65 H (0.20-1.00) X 10*3/uL Monocytes # (Manual) 1.13 H (0.20-1.00) X 10*3/uL Eosinophils # (Manual) 0 L (0.04-0.35) X 10*3/uL Procalcitonin 0.55 H (0.02-0.09) ng/mL Assessment and Plan Plan: Assessment: 1. Acute kidney injury mostly prerenal secondary to hypotension and infection. Improved. 2. Status post simultaneous kidney pancreas transplant in 1997 at [facility]. 3. Chronic kidney disease stage I with baseline creatinine near 1. 4. Left foot wound and cellulitis maintained on antibiotics. ID following. 5. Hypertension with chronic kidney disease. Stable. 6. Hypomagnesemia from poor intake and tacrolimus. Replaced. Better. Plan: Maintain immunosuppression meds - resume CellCept starting tomorrow. Follow-up repeat Prograf level. Hold nifedipine for systolic blood pressure less than 120/70. Avoid nephrotoxins. Continue to monitor renal function and urine output. Follow up outpatient in 1 week post discharge.
[2021-12-15 10:46] LABS: Erythrocyte Sedimentation Rate 74 mm/Hr (0-20)
--- NOTE | 2021-12-15 12:19 | P.DS ---
Providers Date of admission: 12/07/21 15:31 Expected date of discharge: 12/15/21 Attending physician: Rosy Lino DO Consults: 12/07/21 15:28 Consult Physician Urgent Consulting Provider: Carlos Sow Consult Reason/Comments: left foot wound, failed outpatient treatment Do you want consulting provider notified?: Yes 12/07/21 18:19 Consult Physician Routine Consulting Provider: Ashli An Consult Reason/Comments: ANA, Hx of renal and pancreatic transplant Do you want consulting provider notified?: Yes Primary care physician: Devon Brand MD Hospital Course: 61-year-old male with diabetes mellitus status post renal and pancreatic transplant, neuropathy, and prior skin cancer who presented to the ER at the direction of Dr. Guerrero from the outpatient wound care center. Patient has a history of multiple diabetic wounds. Recently he was found to have a plantar ulcer that grew staph aureus and Klebsiella. He was treated outpatient with Cipro. Patient reports that he developed ulceration on the bottom of his left foot approximately 2 weeks ago and has been seeking care since that time. Reports that for the last 2 weeks decreased appetite, low energy, and feeling weak and dizzy. He was having chills at home but did not check his temperature. Complaining of pain in the bottom of his foot. He continued to have worsening of his symptoms and therefore Dr. Guerrero referred him to the ER. Upon arrival to the ER he was found to have a low blood pressure of 89/54. Laboratory analysis demonstrated a white blood cell count of 22.1, hemoglobin 10.7 which is below his baseline of 12.1, sodium 124, carbon dioxide 19, anion gap 13, BUN 53, creatinine 2.18. In the ER he was admitted and was started on IV fluids, Zosyn, and vancomycin. On review of outpatient lab work it does appear that the patient was seen in the ER on 11/25 and had 2 out of 2 blood cultures resulted positive for staph aureus. He follows with [facility] for his pancreatic and renal transplant. Has been on tacrolimus and mycophenolate. Upon admission he was seen by ID who switched the abx to cefepime and flagyl. Patient has underlying CKD with baseline creatinine about 1-1.1 mg/dL. Upon admission he cr was elevated at 2.1. He was seen by nephrology, was hydrated. Cr came back to baseline with hydration. Initially anti rejection meds were held and pateint was started on dexamethasone IV per the transplant team at [facility] recommendations. Later in the hospitalization anti rejection meds were resumed. Tacrolimus and mycophenolate levels were not toxic. Also on admission Na was 124 and that improved with hydration as well. Also had a vascular doppler of the LEs and that showed moderate PVD. Will arrange for outpatient vascular follow up. Today he is still weak and PT advising rehab, will be discharged to rehab with recommendations of 5 more weeks of IV antibiotics per ID. Time for discharge 36 min Patient Condition at Discharge: Stable Plan - Discharge Summary Discharge Rx Participant: No New Discharge Prescriptions: New metroNIDAZOLE [Flagyl] 500 mg PO TID 35 Days #105 tab Cefepime [Maxipime] 2 gm IVPB Q8HR 35 Days #105 each Nystatin 100,000 Unit/ml Susp [Mycostatin Oral Susp] 5 ml PO QID #150 ml Continue predniSONE 5 mg PO DAILY Lovastatin [Mevacor] 20 mg PO HS mycophenolate mofetiL [Cellcept] 500 mg PO BID Enalapril [Vasotec] 20 mg PO HS Bimatoprost [Lumigan 0.01% Ophth Soln] 1 drop BOTH EYES HS Aspirin 81 mg PO DAILY Multivitamin [Men's Multi-Vitamin] 1 tab PO DAILY Tacrolimus [Prograf] 1 mg PO BID Dorzolamide 2% [Trusopt 2%] 1 drop LEFT EYE BID Cholecalciferol [Vitamin D3 (25 Mcg = 1000 Iu)] 25 mcg PO DAILY Folic Acid 1 mg PO DAILY carvediloL [Coreg] 6.25 mg PO BID Sodium Polystyrene Sulfonate [Kayexalate] 15 gm PO Q14D Brimonidine Tartrate/Timolol [Combigan 0.2%-0.5% Eye Drops] 1 drop BOTH EYES BID Calcium Carbonate [Tums] 500 mg PO TID PRN PRN Reason: Heartburn NIFEdipine XL [Procardia XL] 60 mg PO BID Gabapentin 300 mg PO HS Ondansetron Odt [Zofran ODT] 4 mg PO Q8H PRN PRN Reason: Nausea Discontinued Ciprofloxacin HCl [Cipro] 500 mg PO BID Discharge Medication List Aspirin 81 mg PO DAILY 09/27/13 [History] Bimatoprost [Lumigan 0.01% Ophth Soln] 1 drop BOTH EYES HS 09/27/13 [History] Enalapril [Vasotec] 20 mg PO HS 09/27/13 [History] Lovastatin [Mevacor] 20 mg PO HS 09/27/13 [History] Multivitamin [Men's Multi-Vitamin] 1 tab PO DAILY 09/27/13 [History] mycophenolate mofetiL [Cellcept] 500 mg PO BID 09/27/13 [History] predniSONE 5 mg PO DAILY 09/27/13 [History] Tacrolimus [Prograf] 1 mg PO BID 01/03/14 [History] Cholecalciferol [Vitamin D3 (25 Mcg = 1000 Iu)] 25 mcg PO DAILY 12/02/14 [History] Dorzolamide 2% [Trusopt 2%] 1 drop LEFT EYE BID 12/02/14 [History] Folic Acid 1 mg PO DAILY 10/20/17 [History] Sodium Polystyrene Sulfonate [Kayexalate] 15 gm PO Q14D 02/15/18 [History] carvediloL [Coreg] 6.25 mg PO BID 02/15/18 [History] Brimonidine Tartrate/Timolol [Combigan 0.2%-0.5% Eye Drops] 1 drop BOTH EYES BID 11/25/21 [History] Calcium Carbonate [Tums] 500 mg PO TID PRN 11/25/21 [History] Gabapentin 300 mg PO HS 11/25/21 [History] NIFEdipine XL [Procardia XL] 60 mg PO BID 11/25/21 [History] Ondansetron Odt [Zofran ODT] 4 mg PO Q8H PRN 12/07/21 [History] Cefepime [Maxipime] 2 gm IVPB Q8HR 35 Days #105 each 12/15/21 [Rx] Nystatin 100,000 Unit/ml Susp [Mycostatin Oral Susp] 5 ml PO QID #150 ml 12/15/21 [Rx] metroNIDAZOLE [Flagyl] 500 mg PO TID 35 Days #105 tab 12/15/21 [Rx] Follow up Appointment(s)/Referral(s): [facility] [NON-STAFF] - As Needed Devon Brand MD [Primary Care Provider] - 1 Week [facility] [NON-STAFF] - As Needed [facility] [NON-STAFF] - 12/21/21 9:00 am Flaquito Shane DO [STAFF PHYSICIAN] - 1 Week Carlos Sow MD [STAFF PHYSICIAN] - 1 Week Patient Instructions/Handouts: Cellulitis (GEN) Activity/Diet/Wound Care/Special Instructions: per best practice protocol patients mediport is to be De-accessed every 7 days and RE-accessed with a new port needle. Per protocol patients mediport should be de-accessed upon discharge from hospital and arrangements made for mediport to be Re-accessed with home care for home infusion treatment. Cleared per Nephrology for D/C on 12/15/21. May resume cellcept on 12/16/21
--- NOTE | 2021-12-15 15:55 | P.PN ---
Subjective Progress Note Date: 12/15/21 Principal diagnosis: Left foot wound and osteomyelitis Patient is a 61-year-old male with a past medical history significant for diabetes mellitus history of end-stage renal disease in this patient s/p renal and pancreatic transplant neuropathy patient apparently has been dealing with a nonhealing wound on the plantar aspect of his left foot with a recent positive blood culture and abnormal x-ray suggestive of osteomyelitis. On today's evaluation and that is 12/15/2021, patient denies any fever or any chills, the patient is breathing comfortably on room air, the patient denies pain to the left foot area , the patient denies having any chest pain or shortness of breath or cough no abdominal pain and no diarrhea, the patient overall feeling better wants to go home Objective - Vital Signs Vital signs: Vital Signs Temp 99.5 F 12/15/21 07:43 Pulse 77 12/15/21 07:43 Resp 18 12/15/21 07:43 BP 120/55 12/15/21 07:43 Pulse Ox 96 12/15/21 07:43 FiO2 Intake & Output 12/14/21 12/15/21 12/15/21 18:59 06:59 18:59 Intake Total 100 296 Output Total 600 700 400 Balance -500 -700 -104 Weight 63.503 kg Intake: Intake, IV Titration 100 Amount Cefepime 2 gm In Sodium 100 Chloride 0.9% 100 ml @ 25 mls/hr IVPB Q8HR [facility] Rx# :[id number] Oral 296 Output: Urine 600 700 400 Other: Voiding Method Urinal - Exam GENERAL DESCRIPTION: A middle-age male lying in bed in no distress RESPIRATORY SYSTEM: Unlabored breathing , decreased breath sounds at bases HEART: S1 S2 regular rate and rhythm , ABDOMEN: Soft , no tenderness EXTREMITIES: No edema feet - Labs CBC & Chem 7: 12/15/21 06:24 12/15/21 06:24 Labs: Abnormal Lab Results - Last 24 Hours (Table) 12/15/21 12/15/21 12/15/21 Range/Units 06:24 06:24 06:24 WBC 17.64 H (4.50-10.00) X 10*3/uL RBC 3.65 L (4.40-5.60) X 10*6/uL Hgb 10.7 L (13.0-17.0) g/dL Hct 31.7 L (39.6-50.0) % RDW 15.5 H (11.5-14.5) % Plt Count 573 H (140-440) X 10*3/uL MPV 9.1 L (9.5-12.2) fL Immature Gran # 0.83 H (0.00-0.04) X 10*3/uL Neutrophils # 12.98 H (1.80-7.70) X 10*3/uL Monocytes # 1.65 H (0.20-1.00) X 10*3/uL ESR 74 H (0-20) mm/Hr Anion Gap 9.70 L (10.00-18.00) mmol/L BUN/Creatinine Ratio 22.78 H (12.00-20.00) Ratio Calcium 8.4 L (8.7-10.3) mg/dL C-Reactive Protein 9.50 H (0.00-0.80) mg/dL Total Protein 5.2 L (6.2-8.2) g/dL Albumin 2.5 L (3.8-4.9) g/dL Albumin/Globulin Ratio 0.93 L (1.60-3.17) g/dL Procalcitonin 0.55 H (0.02-0.09) ng/mL Assessment and Plan (1) Cellulitis and abscess of foot Current Visit: Yes Status: Acute Code(s): L03.119 - CELLULITIS OF UNSPECIFIED PART OF LIMB SNOMED Code(s): 512060053 (2) Diabetic foot ulcers Current Visit: Yes Status: Acute Code(s): E11.621 - TYPE 2 DIABETES MELLITUS WITH FOOT ULCER SNOMED Code(s): 221555447 Plan: 1patient with left diabetic foot wound with secondary cellulitis and concern for underlying osteomyelitis as the wound is probing down to the bone and did have some purulent drainage also with abnormal x-ray and this patient recently did have MSSA bacteremia could be the likely source the local culture also grew MSSA and Klebsiella that was resistant to cefazolin. 2patient has shown clinical improvement in the white count is down to 17,000 today plan is to continue his cefepime and Flagyl 6 weeks local wound care with Aquacel silver dressing, along with nystatin swish and swallow 1 week and close outpatient follow-up Time with Patient: Less than 30
[2021-12-15] MEDS: LATANOPROST 0.005% OPHTH DROPS 2.5 ML BTL BOTH EYES SCH (21:07)
[2021-12-15] MEDS: ATORVASTATIN 10 MG TAB PO SCH (21:07)
[2021-12-15] MEDS: lisinopriL 20 MG TAB PO SCH (21:07)
[2021-12-15] MEDS: GABAPENTIN 300 MG CAP PO SCH (21:07)
[2021-12-16 02:41] VITALS: TEMP 99
[2021-12-16 07:56] VITALS: BP 128/56; PULSE 77; RESP 14
[2021-12-16] MEDS: metroNIDAZOLE 500 MG TAB PO SCH (08:58)
[2021-12-16] MEDS: MULTIVITAMINS, THERA 1 EACH TAB PO SCH (08:58)
[2021-12-16] MEDS: FOLIC ACID 1 MG TAB PO SCH (08:59)
[2021-12-16] MEDS: ASPIRIN 81 MG PO SCH (08:59)
[2021-12-16] MEDS: LACTOBACILLUS ACIDOPH & BULGAR 1 EACH PACKET PO SCH (08:59)
[2021-12-16] MEDS: DORZOLAMIDE HCL 2% DROPS 10 ML BTL LEFT EYE SCH (08:59)
[2021-12-16] MEDS: BRIMONIDINE TARTRATE 0.2% DROPS 5 ML BTL BOTH EYES SCH (08:59)
[2021-12-16] MEDS: carvediloL 6.25 MG TAB PO SCH (08:59)
[2021-12-16] MEDS: CEFEPIME 2 GM in SODIUM CHLORIDE 0.9% 100 ML IVPB SCH (09:00)
[2021-12-16] MEDS: TACROLIMUS 1 MG CAP PO SCH (09:01)
[2021-12-16] MEDS: predniSONE 5 MG TAB PO SCH (09:05)
[2021-12-16] MEDS: TIMOLOL 0.5% OPHTH DROPS 5 ML BTL BOTH EYES SCH (09:06)
[2021-12-16] MEDS: NYSTATIN 100,000 UNIT/ML SUSP 500,000 UNIT/5 ML CUP PO SCH (09:07)
--- NOTE | 2021-12-16 10:24 | P.PN ---
Subjective Patient is seen in follow-up for renal transplant management. Patient received simultaneous pancreatic kidney transplant from [facility]. Resting in bed. Denies chest pain or shortness of breath. Oral intake fair. Has been voiding. Creatinine 0.9 yesterday. Nonoliguric. No active complaints. Going to rehab today. Vital signs are stable. General: Awake. No acute distress. HEENT: Head exam is unremarkable. LUNGS: Breath sounds decreased. HEART: Rate and Rhythm are regular. ABDOMEN: Soft, no distention. EXTREMITITES: No edema. Left foot wrapped. No drainage noted. Objective - Vital Signs Vital signs: Vital Signs Temp 99.0 F 12/16/21 07:32 Pulse 77 12/16/21 07:32 Resp 14 12/16/21 07:32 BP 128/56 12/16/21 07:32 Pulse Ox 94 L 12/16/21 07:32 FiO2 Intake & Output 12/15/21 12/16/21 12/16/21 18:59 06:59 18:59 Intake Total 872 Output Total 400 600 250 Balance 472 -600 -250 Intake: Intake, IV Titration 100 Amount Cefepime 2 gm In Sodium 100 Chloride 0.9% 100 ml @ 25 mls/hr IVPB Q8HR [facility] Rx# :[id number] Oral 772 Output: Urine 400 600 250 Other: Voiding Method Urinal # Bowel Movements 2 - Labs CBC & Chem 7: 12/15/21 06:24 12/15/21 06:24 Labs: Abnormal Lab Results - Last 24 Hours (Table) 12/15/21 Range/Units 06:24 ESR 74 H (0-20) mm/Hr Assessment and Plan Plan: Assessment: 1. Acute kidney injury mostly prerenal secondary to hypotension and infection. Improved. 2. Status post simultaneous kidney pancreas transplant in 1997 at [facility]. 3. Chronic kidney disease stage I with baseline creatinine near 1. 4. Left foot wound and cellulitis maintained on antibiotics. ID following. 5. Hypertension with chronic kidney disease. Stable. 6. Hypomagnesemia from poor intake and tacrolimus. Replaced. Better. Plan: Maintain immunosuppression meds - resume CellCept today. Repeat Prograf level 6.3. Hold nifedipine for systolic blood pressure less than 120/70. Avoid nephrotoxins. Continue to monitor renal function and urine output. Follow up outpatient in 1 week post discharge.
--- NOTE | 2021-12-16 14:31 | P.PN ---
Subjective Progress Note Date: 12/16/21 Patient is a 61-year-old male with diabetes mellitus status post renal and pancreatic transplant, neuropathy, and prior skin cancer who presented to the ER at the direction of Dr. Guerrero from the outpatient wound care center. Patient has a history of multiple diabetic wounds. Recently he was found to have a plantar ulcer that grew staph aureus and Klebsiella. He is being treated for osteomyelitis, discharged was initially planned for 12/15 but was awaiting bed and auth for halfway which was obtained today. Seen and examined at bedside. Up and walking with therapy. No complaints excited to go to rehab. General: nontoxic, no distress, appears at stated age Derm: walking boot in place, warm, dry Head: atraumatic, normocephalic, symmetric Ext: no gross muscle atrophy, no edema, no contractures Neuro: CN II-XI grossly intact, no focal neuro deficits Psych: Alert, oriented, appropriate affect Assessment/Plan: Osteomyelitis, Infected diabetic ulcer of the left foot, plantar aspect with sepsis Outpatient blood cultures positive on 11/25 for methicillin sensitive staph aureus Acute kidney injury in a patient with history of renal/pancreatic transplant, improved Hyponatremia, improved Anemia, chronic and worse than baseline with low iron stat suspect Fe def anemia with elevated ferritin due to osteo Thrombocytosis. reactive Immunosupressed HTN Hypomagnesemia - Discharge med rec reviewed, patient is still stable for discharge, Rx for gabapentin provider for SNF. Objective - Vital Signs Vital signs: Vital Signs Temp 99.0 F 12/16/21 07:32 Pulse 77 12/16/21 07:32 Resp 14 12/16/21 07:32 BP 128/56 12/16/21 07:32 Pulse Ox 94 L 12/16/21 07:32 FiO2 Intake & Output 12/15/21 12/16/21 12/16/21 18:59 06:59 18:59 Intake Total 872 Output Total 400 600 250 Balance 472 -600 -250 Intake: Intake, IV Titration 100 Amount Cefepime 2 gm In Sodium 100 Chloride 0.9% 100 ml @ 25 mls/hr IVPB Q8HR [facility] Rx# :[id number] Oral 772 Output: Urine 400 600 250 Other: Voiding Method Urinal # Bowel Movements 2 - Labs CBC & Chem 7: 12/15/21 06:24 12/15/21 06:24
--- NOTE | 2021-12-16 16:58 | P.PN ---
Subjective Progress Note Date: 12/16/21 Principal diagnosis: Left foot wound and osteomyelitis Patient is a 61-year-old male with a past medical history significant for diabetes mellitus history of end-stage renal disease in this patient s/p renal and pancreatic transplant neuropathy patient apparently has been dealing with a nonhealing wound on the plantar aspect of his left foot with a recent positive blood culture and abnormal x-ray suggestive of osteomyelitis. On today's evaluation and that is 12/16/2021, patient remains to be afebrile, the patient is breathing comfortably on room air, the patient denies pain to the left foot area , the patient denies chest pain or shortness of breath or cough , the patient denies abdominal pain and no diarrhea, currently waiting for insurance authorization for [facility] discharge Objective - Vital Signs Vital signs: Vital Signs Temp 99.0 F 12/16/21 07:32 Pulse 77 12/16/21 07:32 Resp 14 12/16/21 07:32 BP 128/56 12/16/21 07:32 Pulse Ox 94 L 12/16/21 07:32 FiO2 Intake & Output 12/15/21 12/16/21 12/16/21 18:59 06:59 18:59 Intake Total 872 Output Total 400 600 250 Balance 472 -600 -250 Intake: Intake, IV Titration 100 Amount Cefepime 2 gm In Sodium 100 Chloride 0.9% 100 ml @ 25 mls/hr IVPB Q8HR [facility] Rx# :[id number] Oral 772 Output: Urine 400 600 250 Other: Voiding Method Urinal # Bowel Movements 2 - Exam GENERAL DESCRIPTION: A middle-age male lying in bed in no distress RESPIRATORY SYSTEM: Unlabored breathing , decreased breath sounds at bases HEART: S1 S2 regular rate and rhythm , ABDOMEN: Soft , no tenderness EXTREMITIES: No edema feet - Labs CBC & Chem 7: 12/15/21 06:24 12/15/21 06:24 Assessment and Plan (1) Cellulitis and abscess of foot Status: Acute Code(s): L03.119 - CELLULITIS OF UNSPECIFIED PART OF LIMB SNOMED Code(s): 728125293 (2) Diabetic foot ulcers Status: Acute Code(s): E11.621 - TYPE 2 DIABETES MELLITUS WITH FOOT ULCER SNOMED Code(s): 874640255 Plan: 1patient with left diabetic foot wound with secondary cellulitis and concern for underlying osteomyelitis as the wound is probing down to the bone and did have some purulent drainage also with abnormal x-ray and this patient recently did have MSSA bacteremia could be the likely source the local culture also grew MSSA and Klebsiella that was resistant to cefazolin. 2patient has shown clinical improvement , plan is to continue his cefepime and Flagyl 6 weeks local wound care with Aquacel silver dressing, along with nystatin swish and swallow 1 week and close outpatient follow-up in the office in 2 weeks Time with Patient: Less than 30
== END 2021-12-16 13:50 | disposition still patient (30) | DRG 872 ==
LOC: EC 10:45 → 4SSUR 15:31
PROVIDERS: ADMIT Internal Medicine; ATTEND Internal Medicine
DX: A41.01 Sepsis due to Methicillin susceptible Staphylococcus aureus (principal); T86.19 Other complication of kidney transplant; D84.821 Immunodeficiency due to drugs; E87.1 Hypo-osmolality and hyponatremia; Z94.83 Pancreas transplant status; M86.172 Other acute osteomyelitis, left ankle and foot; N17.9 Acute kidney failure, unspecified; E87.2 Acidosis; L03.116 Cellulitis of left lower limb; Z16.19 Resistance to other specified beta lactam antibiotics; L02.612 Cutaneous abscess of left foot; E11.610 Type 2 diabetes mellitus with diabetic neuropathic arthropathy; Z95.828 Presence of other vascular implants and grafts; D63.1 Anemia in chronic kidney disease; L97.529 Non-pressure chronic ulcer of other part of left foot with unspecified severity; I95.9 Hypotension, unspecified; F41.9 Anxiety disorder, unspecified; B96.1 Klebsiella pneumoniae [K. pneumoniae] as the cause of diseases classified elsewhere; N18.2 Chronic kidney disease, stage 2 (mild); D75.838 Other thrombocytosis; T45.1X5A Adverse effect of antineoplastic and immunosuppressive drugs, initial encounter; D50.9 Iron deficiency anemia, unspecified; E86.1 Hypovolemia; E83.42 Hypomagnesemia; R19.7 Diarrhea, unspecified; E11.22 Type 2 diabetes mellitus with diabetic chronic kidney disease; E11.621 Type 2 diabetes mellitus with foot ulcer; E11.51 Type 2 diabetes mellitus with diabetic peripheral angiopathy without gangrene; E11.42 Type 2 diabetes mellitus with diabetic polyneuropathy; Y83.2 Surgical operation with anastomosis, bypass or graft as the cause of abnormal reaction of the patient, or of later complication, without mention of misadventure at the time of the procedure; Z20.822 Contact with and (suspected) exposure to COVID-19; Z79.82 Long term (current) use of aspirin; Z79.899 Other long term (current) drug therapy; Z79.52 Long term (current) use of systemic steroids; Z79.891 Long term (current) use of opiate analgesic; Z79.2 Long term (current) use of antibiotics; Z91.040 Latex allergy status; Z88.0 Allergy status to penicillin; Z85.828 Personal history of other malignant neoplasm of skin; Z86.14 Personal history of Methicillin resistant Staphylococcus aureus infection
CPT/HCPCS: 36415; 80048; 80053; 80180; 80197; 82150; 82565; 82728; 83540; 83550; 83605; 83690; 83735; 84145; 85025; 85027; 85652; 86140; 87040; 87070; 87205; 87635; 93306; 93923; 96365; 96366; 96375; 99285

== ENCOUNTER 2022-01-09 04:02 | Inpatient (IN) | payer MEDICARE, OTHER ==
--- NOTE | 2022-01-09 04:33 | ED ---
Recheck HPI - General Stated Complaint: Weakness Time Seen by Provider: 01/09/22 04:06 Source: RN notes reviewed, old records reviewed Mode of arrival: EMS Limitations: no limitations - History of Present Illness Initial Comments: This is a 61-year-old male who is a mildly poor story and patient presents today for extended care facility for increasing fever increasing left foot pain. Patient is on current IV antibiotics for osteomyelitis and cellulitis of his left lower extremity. Patient states the pain is increasing and staff was sent in for increasing fever. MD Complaint: wound re-check, needs IV antibiotics -: hour(s) Returns Today for: Called Because of Abnormal Lab/Test, needs IV antibiotics, persistent/worsening pain related to initial visit Symptoms Since Prior Visit: worsening pain, worsening swelling, worsening redness, fever Context: planned re-check Associated Symptoms: fever, chills Treatments Prior to Arrival: Given Antibiotics on, Given Pain Meds on - Related Data Home Medications Medication Instructions Recorded Confirmed Aspirin 81 mg PO DAILY 09/27/13 12/07/21 Bimatoprost [Lumigan 0.01% Ophth 1 drop BOTH EYES HS 09/27/13 12/07/21 Soln] Enalapril [Vasotec] 20 mg PO HS 09/27/13 12/07/21 Lovastatin [Mevacor] 20 mg PO HS 09/27/13 12/07/21 Multivitamin [Men's Multi-Vitamin] 1 tab PO DAILY 09/27/13 12/07/21 mycophenolate mofetiL [Cellcept] 500 mg PO BID 09/27/13 12/07/21 predniSONE 5 mg PO DAILY 09/27/13 12/07/21 Tacrolimus [Prograf] 1 mg PO BID 01/03/14 12/07/21 Cholecalciferol [Vitamin D3 (25 25 mcg PO DAILY 12/02/14 12/07/21 Mcg = 1000 Iu)] Dorzolamide 2% [Trusopt 2%] 1 drop LEFT EYE BID 12/02/14 12/07/21 Folic Acid 1 mg PO DAILY 10/20/17 12/07/21 Sodium Polystyrene Sulfonate 15 gm PO Q14D 02/15/18 12/07/21 [Kayexalate] carvediloL [Coreg] 6.25 mg PO BID 02/15/18 12/07/21 Brimonidine Tartrate/Timolol 1 drop BOTH EYES BID 11/25/21 12/07/21 [Combigan 0.2%-0.5% Eye Drops] Calcium Carbonate [Tums] 500 mg PO TID PRN 11/25/21 12/07/21 NIFEdipine XL [Procardia XL] 60 mg PO BID 11/25/21 12/07/21 Ondansetron Odt [Zofran ODT] 4 mg PO Q8H PRN 12/07/21 12/07/21 Previous Rx's Medication Instructions Recorded Cefepime [Maxipime] 2 gm IVPB Q8HR 35 Days #105 each 12/15/21 Nystatin 100,000 Unit/ml Susp 5 ml PO QID #150 ml 12/15/21 [Mycostatin Oral Susp] metroNIDAZOLE [Flagyl] 500 mg PO TID 35 Days #105 tab 12/15/21 Gabapentin 300 mg PO HS #30 cap 12/16/21 Allergies Allergy/AdvReac Type Severity Reaction Status Date / Time latex Allergy Rash/Hives Verified 01/09/22 04:39 Penicillins Allergy Rash/Hives Verified 01/09/22 04:39 Review of Systems ROS Statement: Those systems with pertinent positive or pertinent negative responses have been documented in the HPI. ROS Other: All systems not noted in ROS Statement are negative. Past Medical History Past Medical History: Cancer, Skin Disorder Additional Past Medical History / Comment(s): RT FOOT OPEN AREA, PVD, WAS TX FOR DIABETES UP UNTIL HIS TRANSPLANT(). 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 Past Anesthesia/Blood Transfusion Reactions: No Reported Reaction Past Psychological History: Anxiety Smoking Status: Never smoker - Past Family History Father Additional Family Medical History / Comment(s): Pt states father of motorcycle accident 1970 Mother Family Medical History: No Reported History General Exam General appearance: alert, in no apparent distress Head exam: Present: atraumatic, normocephalic, normal inspection Eye exam: Present: normal appearance, PERRL, EOMI. Absent: scleral icterus, conjunctival injection, periorbital swelling ENT exam: Present: normal exam, mucous membranes moist Neck exam: Present: normal inspection. Absent: tenderness, meningismus, lymphadenopathy Respiratory exam: Present: normal lung sounds bilaterally. Absent: respiratory distress, wheezes, rales, rhonchi, stridor Cardiovascular Exam: Present: normal rhythm, tachycardia, normal heart sounds. Absent: systolic murmur, diastolic murmur, rubs, gallop, clicks GI/Abdominal exam: Present: soft, normal bowel sounds. Absent: distended, tenderness, guarding, rebound, rigid Extremities exam: Present: normal inspection, full ROM, normal capillary refill, other (Left lower extremity is wrapped significant swelling and erythema and redness, drainage). Absent: tenderness, pedal edema, joint swelling, calf tenderness Back exam: Present: normal inspection Neurological exam: Present: alert, oriented X3, CN II-XII intact Psychiatric exam: Present: normal affect, normal mood Skin exam: Present: warm, dry, intact, normal color. Absent: rash Course Vital Signs 01/09/22 04:36 Temperature 101 F H Pulse Rate 89 Respiratory 17 Rate Blood Pressure 145/78 O2 Sat by Pulse 98 Oximetry - Reevaluation(s) Reevaluation #1: 01/09/22 04:54 Medical record is reviewed Reevaluation #2: 01/09/22 04:54 Patient has no real change in symptoms here in the ER Reevaluation #3: 01/09/22 04:54 Patient informed results and questions are answered - Consultations Consultation #1: Spoke with [facility] physicians who agree to admit this patient Medical Decision Making - Medical Decision Making 61 male DF for evaluation patient admitted for persistent treatment of osteomyelitis. Patient will expand antibiotic coverage and treated fever symptoms therapy, x-ray is unchanged from prior. - EKG Data -: EKG Interpreted by Me (EKG is sinus rhythm 92, MT 157 QRS 87 QTC 396) - Radiology Data Radiology results: report reviewed (X-ray left foot is unchanged from prior), image reviewed Disposition Clinical Impression: Fever, Cellulitis of foot, Diabetic foot ulcers, Cellulitis and abscess of foot, Foot osteomyelitis, left Disposition: ADMITTED IP TO THIS HOSP Condition: Serious Is patient prescribed a controlled substance at d/c from ED?: No Referrals: Devon Brand MD [Primary Care Provider] - 1-2 days Time of Disposition: 05:00
[2022-01-09] MEDS ORDERED: VANCOMYCIN IV PER PHARMACY 1 EACH MISC MISCELLANE PRN (04:34)
[2022-01-09] MEDS ORDERED: SODIUM CHLORIDE 0.9% 500 ML 500 ML IV STA (04:34)
[2022-01-09] MEDS ORDERED: SODIUM CHLORIDE 0.9% 1,000 ML IV STA (04:34)
[2022-01-09] MEDS ORDERED: MORPHINE SULFATE 4 MG/ML SYRINGE IV PRN (04:34)
[2022-01-09] MEDS ORDERED: ACETAMINOPHEN IV (For NPO) 1,000 MG in EMPTY BAG 1 BAG IVPB STA (04:34)
[2022-01-09] MEDS ORDERED: MORPHINE SULFATE 4 MG/ML SYRINGE IV STA (04:34)
[2022-01-09] MEDS ORDERED: ONDANSETRON 4 MG/2 ML VIAL IVP PRN (04:34)
[2022-01-09] MEDS ORDERED: NALOXONE 0.4 MG/ML 1 ML VIAL IV PRN (04:34)
[2022-01-09] MEDS ORDERED: VANCOMYCIN 1,000 MG in SODIUM CHLORIDE 0.9% 250 ML IVPB STA (04:40)
[2022-01-09] MEDS ORDERED: SODIUM CHLORIDE 0.9% 1,000 ML IV SCH (04:45)
[2022-01-09 04:59] LABS: INR 1.2 (<1.2); Partial Thromboplastin Time 29.6 sec (22.0-30.0); Prothrombin Time 12.5 sec (9.0-12.0)
[2022-01-09 05:09] LABS: Albumin 2.8 g/dL (3.5-5.0); Calcium 8.6 mg/dL (8.4-10.2); Magnesium 1.5 mg/dL (1.6-2.3); Phosphorus 3.4 mg/dL (2.5-4.5); Potassium 3.8 mmol/L (3.5-5.1); Total Bilirubin 0.4 mg/dL (0.2-1.3); Total Protein 6.3 g/dL (6.3-8.2)
[2022-01-09 05:17] LABS: HCT 28.3 % (39.0-53.0); HGB 9.1 gm/dL (13.0-17.5); MCH 29.3 pg (25.0-35.0); MCHC 32.3 g/dL (31.0-37.0); MCV 90.8 fL (80.0-100.0); Mean Platelet Volume 7.3; Platelet Count 375 k/uL (150-450); RBC 3.11 m/uL (4.30-5.90); RDW 15.8 % (11.5-15.5); WBC 13.6 k/uL (3.8-10.6)
[2022-01-09 06:12] LABS: Eosinophils # (M) 0.54 k/uL (0-0.7); Lymphocytes # (M) 1.36 k/uL (1.0-4.8); Monocytes # (M) 1.09 k/uL (0-1.0); Neutrophils # (M) 10.61 k/uL (1.3-7.7); Neutrophils % (M) 78 %; Nucleated Red Blood Cells 0 /100 WBC (0-0); Total Cells Counted 100
--- NOTE | 2022-01-09 08:48 | P.HPIM ---
History of Present Illness H&P Date: 01/09/22 History of Presenting Illness: Patient is a very pleasant 61-year-old male with a past medical history of diabetes status post renal and pancreatic transplant in 1997, neuropathy, peripheral vascular disease, skin cancer and recent diagnosis and treatment of staph aureus bacteremia and osteomyelitis of left foot. Patient recently underwent hospitalization for staph aureus bacteremia and osteomyelitis of left foot from 12/07/21 through 12/15/21. [facility] 5 more weeks of IV antibiotics per infectious disease. Patient discharged on Flagyl, cefepime, and nystatin. [facility] care facility sent patient back to the emergency department today secondary to fever and reports of increased pain to left foot. Patient currently reporting increased pain to his left foot accompanied by fatigue and feeling very sleepy. He denies having any headache, lightheadedness, dizziness, chest pain, palpitations, shortness of breath, nausea, vomiting, changes in urinary or bowel function or any other complaints at this time. In the emergency department patient underwent full evaluation. He was found to be febrile with a temp of 101.0F, and leukocytosis with WBC count of 13.6 and an acute kidney injury with BUN of 39, creatinine 2.33, and GFR of 30 with baseline creatinine of 0.9. Magnesium 1.5. Urinalysis negative for infection. Patient started on IV antibiotics vancomycin and admitted under our services with consultation to infectious disease and nephrology. Review of systems: Pertinent positives and negatives as discussed in HPI, a complete review of systems was performed and all other systems are negative. Physical exam: Vital signs reviewed and stable. General: Nontoxic, no distress and appears stated age. Derm: Skin warm and dry, normal coloration for ethnicity. Head: Atraumatic, normocephalic and symmetric. Eyes: EOMs intact, no lid lag, and anicteric sclera Mouth: no lip lesions, mucus membranes moist Cardiovascular: regular rate and rhythm with normal S1S2, no murmur, positive posterior tibial pulses bilaterally, and cap refill < 2 seconds. Lungs: Respirations even, regular, and unlabored on room air. Lungs CTA bilaterally, no rhonchi, no rales, no wheezing, and no accessory muscle usage. Abdominal: soft, nontender to palpation, no guarding, no appreciable organomegaly Ext: ROM intact. No gross muscle atrophy, trace edema, no contractures, dressing to left foot clean dry and intact. Neuro: Speech clear, face symmetrical and CN II-XII grossly intact with no noted focal neuro deficits Psych: Alert and oriented to person, place, time, and situation. Appropriate and pleasant affect. Assessment and Plan of Care: Osteomyelitis of left foot secondary to nonhealing/infected diabetic ulcer left foot plantar region Recent treatment of staph aureus bacteremia -Blood cultures obtained and sent to lab for analysis. -Patient was started on vancomycin in the ED and infectious disease starting patient on daptomycin and Flagyl. -Infectious disease following -Symptomatic care and pain management. -We will repeat x-ray left foot to compare with findings from x-ray findings last month. Acute kidney injury, status post renal transplant -Continue prednisone and antirejection medication CellCept, we will hold tacrolimus pending levels and further recommendations by nephrology secondary to acute kidney in renal and pancreatic transplant recipient. -Nephrology consulted. -Gentle IV fluid hydration. -Continue close monitoring with repeat a.m. labs. Hypomagnesemia -Replaced, we will continue to monitor with repeat a.m. labs. Peripheral vascular disease Neuropathy -Continue daily medication management with Neurontin. The patient is admitted with an anticipated greater than 2 midnight stay for evaluation of osteomyelitis CODE STATUS: Full code DVT prophylaxis: Heparin Discussed with: Patient and RN Anticipated discharge date: Clinical course to determine Anticipated discharge place: Return to SNF A total of 50 minutes was spent on the care of this complex patient more than 50% of the time was spent in counseling and care coordination. I reviewed the above documentation as written by our ROBERTO who is the original author of this note, and I agree with the assessment and plan with no changes. Past Medical History Past Medical History: Cancer, Skin Disorder Additional Past Medical History / Comment(s): RT FOOT OPEN AREA, PVD, WAS TX FOR DIABETES UP UNTIL HIS TRANSPLANT(). 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 Past Anesthesia/Blood Transfusion Reactions: No Reported Reaction Past Psychological History: Anxiety Smoking Status: Never smoker - Past Family History Father Additional Family Medical History / Comment(s): Pt states father of motorcycle accident 1970 Mother Family Medical History: No Reported History Medications and Allergies Home Medications Medication Instructions Recorded Confirmed Type Aspirin 81 mg PO DAILY 09/27/13 01/09/22 History Multivitamin [Men's Multi-Vitamin] 1 tab PO DAILY 09/27/13 01/09/22 History mycophenolate mofetiL [Cellcept] 500 mg PO BID 09/27/13 01/09/22 History predniSONE 5 mg PO DAILY 09/27/13 01/09/22 History Tacrolimus [Prograf] 1 mg PO BID 01/03/14 01/09/22 History Cholecalciferol [Vitamin D3 (25 25 mcg PO DAILY 12/02/14 01/09/22 History Mcg = 1000 Iu)] Dorzolamide 2% [Trusopt 2%] 1 drop LEFT EYE BID 12/02/14 01/09/22 History Folic Acid 1 mg PO DAILY 10/20/17 01/09/22 History carvediloL [Coreg] 6.25 mg PO BID 02/15/18 01/09/22 History Brimonidine Tartrate/Timolol 1 drop BOTH EYES BID 11/25/21 01/09/22 History [Combigan 0.2%-0.5% Eye Drops] Calcium Carbonate [Tums] 500 mg PO TID PRN 11/25/21 01/09/22 History NIFEdipine XL [Procardia XL] 60 mg PO BID 11/25/21 01/09/22 History Gabapentin 300 mg PO HS #30 cap 12/16/21 01/09/22 Rx Acetaminophen [Tylenol 8 Hour] 650 mg PO Q6H PRN 01/09/22 01/09/22 History Heparin Lock Flush Solution 10 30 units IV Q8H 01/09/22 01/09/22 History Units/Ml Latanoprost/Pf [Latanoprost 0.005% 1 drop BOTH EYES HS 01/09/22 01/09/22 History Eye Drop] Melatonin 3 mg PO HS 01/09/22 01/09/22 History Darbepoetin Eitan [Aranesp] 40 mcg SQ Q7D each 01/19/22 Rx Magnesium Oxide [Mag-Ox] 400 mg PO DAILY tab 01/19/22 Rx QUEtiapine [SEROquel] 12.5 mg PO HS tab 01/19/22 Rx hydrALAZINE HCL [Apresoline] 25 mg PO TID tab 01/19/22 Rx Allergies Allergy/AdvReac Type Severity Reaction Status Date / Time latex Allergy Rash/Hives Verified 01/09/22 13:28 Penicillins Allergy Rash/Hives Verified 01/09/22 13:28 Physical Exam Osteopathic Statement: *. No significant issues noted on an osteopathic structural exam other than those noted in the History and Physical/Consult. Vitals: Vital Signs Temp Pulse Resp BP Pulse Ox 01/09/22 08:10 98.5 F 82 18 141/76 97 01/09/22 07:09 83 18 143/77 95 01/09/22 04:36 101 F H 89 17 145/78 98 Intake and Output 01/08/22 01/09/22 01/09/22 22:59 06:59 14:59 Other: Weight 58.967 kg Results CBC & Chem 7: 01/18/22 06:44 01/18/22 06:44 Labs: Abnormal Lab Results - Last 24 Hours (Table) 01/09/22 01/09/22 01/09/22 Range/Units 04:39 04:39 04:39 WBC 13.6 H (3.8-10.6) k/uL RBC 3.11 L (4.30-5.90) m/uL Hgb 9.1 L D (13.0-17.5) gm/dL Hct 28.3 L (39.0-53.0) % RDW 15.8 H (11.5-15.5) % Neutrophils # (Manual) 10.61 H (1.3-7.7) k/uL Monocytes # (Manual) 1.09 H (0-1.0) k/uL PT 12.5 H (9.0-12.0) sec INR 1.2 H (<1.2) Chloride 109 H (98-107) mmol/L Carbon Dioxide 20 L (22-30) mmol/L BUN 39 H (9-20) mg/dL Creatinine 2.33 H (0.66-1.25) mg/dL Glucose 103 H (74-99) mg/dL Magnesium 1.5 L (1.6-2.3) mg/dL Albumin 2.8 L (3.5-5.0) g/dL
[2022-01-09 10:14] LABS: Appearance,Urine Clear (Clear); Bacteria,Urine Rare /hpf; Bilirubin,Urine Negative (Negative); Blood,Urine Small (Negative); Color,Urine Light Yellow; Glucose,Urine (UA) Negative (Negative); Ketones,Urine Negative (Negative); Leukocyte Esterase,Urine Negative (Negative); Mucus,Urine Rare /hpf; Nitrite,Urine Negative (Negative); Protein,Urine 1+ (Negative); RBC,Urine 1 /hpf (0-5); Squamous Epithelial Cell,Urine <1 /hpf (0-4); Urobilinogen,Urine <2.0 mg/dL (<2.0); WBC,Urine 1 /hpf (0-5)
--- NOTE | 2022-01-09 11:34 | P.NPCON ---
History of Present Illness - Reason for Consult Consult date: 01/09/22 acute renal failure - Chief Complaint Acute kidney injury - History of Present Illness This is a 61-year-old male from a shelter, seen in consultation because of acute kidney injury. His creatinine was 0.9 on 12/15/2021 recently when he was hospitalized here with staph aureus bacteremia on 12/17/2021. He came in because of fever and not feeling well with a creatinine of 2.3. Is somewhat confused and disoriented. Complains of fever but otherwise Denies any chest pain chills cough shortness of breath, no diarrhea He is known with diabetes mellitus, status post renal and pancreas transplant at [facility] [place] in 1997, nonhealing wound on the plantar aspect of the left foot. Currently here in the emergency room his blood pressures aren't vital signs are stable temperature is 101 Past Medical History Past Medical History: Cancer, Skin Disorder Additional Past Medical History / Comment(s): RT FOOT OPEN AREA, PVD, WAS TX FOR DIABETES UP UNTIL HIS TRANSPLANT(). 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 Past Anesthesia/Blood Transfusion Reactions: No Reported Reaction Past Psychological History: Anxiety Smoking Status: Never smoker - Past Family History Father Additional Family Medical History / Comment(s): Pt states father of motorcycle accident 1970 Mother Family Medical History: No Reported History Medications and Allergies Home Medications Medication Instructions Recorded Confirmed Type Aspirin 81 mg PO DAILY 09/27/13 12/07/21 History Bimatoprost [Lumigan 0.01% Ophth 1 drop BOTH EYES HS 09/27/13 12/07/21 History Soln] Enalapril [Vasotec] 20 mg PO HS 09/27/13 12/07/21 History Lovastatin [Mevacor] 20 mg PO HS 09/27/13 12/07/21 History Multivitamin [Men's Multi-Vitamin] 1 tab PO DAILY 09/27/13 12/07/21 History mycophenolate mofetiL [Cellcept] 500 mg PO BID 09/27/13 12/07/21 History predniSONE 5 mg PO DAILY 09/27/13 12/07/21 History Tacrolimus [Prograf] 1 mg PO BID 01/03/14 12/07/21 History Cholecalciferol [Vitamin D3 (25 25 mcg PO DAILY 12/02/14 12/07/21 History Mcg = 1000 Iu)] Dorzolamide 2% [Trusopt 2%] 1 drop LEFT EYE BID 12/02/14 12/07/21 History Folic Acid 1 mg PO DAILY 10/20/17 12/07/21 History Sodium Polystyrene Sulfonate 15 gm PO Q14D 02/15/18 12/07/21 History [Kayexalate] carvediloL [Coreg] 6.25 mg PO BID 02/15/18 12/07/21 History Brimonidine Tartrate/Timolol 1 drop BOTH EYES BID 11/25/21 12/07/21 History [Combigan 0.2%-0.5% Eye Drops] Calcium Carbonate [Tums] 500 mg PO TID PRN 11/25/21 12/07/21 History NIFEdipine XL [Procardia XL] 60 mg PO BID 11/25/21 12/07/21 History Ondansetron Odt [Zofran ODT] 4 mg PO Q8H PRN 12/07/21 12/07/21 History Cefepime [Maxipime] 2 gm IVPB Q8HR 35 Days #105 each 12/15/21 Rx Nystatin 100,000 Unit/ml Susp 5 ml PO QID #150 ml 12/15/21 Rx [Mycostatin Oral Susp] metroNIDAZOLE [Flagyl] 500 mg PO TID 35 Days #105 tab 12/15/21 Rx Gabapentin 300 mg PO HS #30 cap 12/16/21 Rx Allergies Allergy/AdvReac Type Severity Reaction Status Date / Time latex Allergy Rash/Hives Verified 01/09/22 04:39 Penicillins Allergy Rash/Hives Verified 01/09/22 04:39 Physical Exam Vitals: Vital Signs Temp Pulse Resp BP Pulse Ox 01/09/22 10:00 73 18 116/68 01/09/22 08:10 98.5 F 82 18 141/76 97 01/09/22 07:09 83 18 143/77 95 01/09/22 04:36 101 F H 89 17 145/78 98 Intake and Output 01/08/22 01/09/22 01/09/22 22:59 06:59 14:59 Other: Weight 58.967 kg Awake alert but disoriented. HEENT exam no JVP neck is supple no facial asymmetry. Lungs are clear to auscultation fair air entry bilaterally Heart sounds unremarkable for any murmur rub gallop Abdomen soft nontender Extremity exam reveals trace edema Neurologically awake alert but disoriented Results - Lab Results Most recent lab results Calcium 8.6 mg/dL (8.4-10.2) 01/09/22 04:39 Phosphorus 3.4 mg/dL (2.5-4.5) 01/09/22 04:39 Magnesium 1.5 mg/dL (1.6-2.3) L 01/09/22 04:39 01/09/22 04:39 01/09/22 04:39 Assessment and Plan Assessment: Impression 1. Acute kidney injuries of her transplanted kidney because of low intake and sepsis with osteomyelitis, rule out outlet obstruction. Rule out Prograf toxicity. 2. Status post kidney pancreas transplant. On immunosuppressive medications including CellCept 500 twice a day prednisone 5 mg and Prograf 1 mg twice a day 3. Osteomyelitis right foot with fever and sepsis 4. Mild degree of non-gap acidosis from acute kidney injury 5. Blood sugars slightly high 103 rule out pancreas rejection. 6. Anemia hemoglobin is 9.1, rule out iron deficiency Recommendation 1. IV lactated Ringer's at 75 now 2. ensure vancomycin levels are within therapeutic range and try to avoid if possible. 3. Maintain immunosuppressive medications as at home. 4. Check Prograf level V. Check bladder scan. 6. Check labs tomorrow Thank you for this consultation we'll continue to follow
[2022-01-09] MEDS: LACTATED RINGERS 1,000 ML IV SCH (13:04)
[2022-01-09] MEDS ORDERED: ACETAMINOPHEN TAB 325 MG TAB PO PRN (13:59)
[2022-01-09] MEDS ORDERED: CALCIUM CARBONATE 500 MG CHEWABLE PO PRN (13:59)
--- NOTE | 2022-01-09 16:06 | XR ---
EXAMINATION TYPE: XR foot complete LT DATE OF EXAM: 01/09/2022 COMPARISON: 12/07/2021 HISTORY: Nonhealing wound TECHNIQUE: 3 views FINDINGS: There is amputation deformity of the little toe at the level of the distal shaft of the fif th metatarsal. There is disorganization of the tarsal bones consistent with neuropathic arthropathy. There is atherosclerotic vascular calcification. There is hallux valgus deformity. There is evidence for old fractures of the distal second and third metatarsals. There is erosion of the lateral aspect of the cuboidal bone. IMPRESSION: There is pes planus deformity. Deformities of the tarsal bones with sclerosis and consist ent with neuropathic joint. There is a new erosion of the lateral aspect of the cuboidal bone consist ent with osteomyelitis measuring 10 mm.
[2022-01-09 16:14] LABS: % Iron Saturation 8.05 (15.00-50.00)
[2022-01-09] MEDS: metroNIDAZOLE 500 MG TAB PO SCH ×2 (16:49→20:33)
[2022-01-09] MEDS: HEPARIN SODIUM,PORCINE/PF 5,000 UNIT/0.5 ML SYRINGE SQ SCH ×2 (16:49→20:34)
[2022-01-09] MEDS: MULTIVITAMINS, THERA 1 EACH TAB PO SCH (16:49)
[2022-01-09] MEDS: MAGNESIUM SULFATE-D5W PMX 1 GM in DEXTROSE/WATER 1 100ML.BAG IVPB SCH ×3 (16:49→20:42)
[2022-01-09] MEDS: predniSONE 5 MG TAB PO SCH (16:52)
[2022-01-09] MEDS: DAPTOmycin 350 MG in SODIUM CHLORIDE 0.9% 50 ML IVPB SCH (18:26)
[2022-01-09] MEDS: NON FORMULARY DRUG (Brimonidine Tartrate/Timolol [Combigan 0.2%-0.5% Eye Drops] 5 ML Ml) BOTH EYES SCH (20:30)
[2022-01-09] MEDS: GABAPENTIN 300 MG CAP PO SCH (20:33)
[2022-01-09] MEDS: ATORVASTATIN 10 MG TAB PO SCH (20:33)
[2022-01-09] MEDS: carvediloL 6.25 MG TAB PO SCH (20:33)
[2022-01-09] MEDS: MELATONIN 3 MG TABLET PO SCH (20:34)
--- NOTE | 2022-01-09 23:11 | P.CONS ---
History of Present Illness - Reason for Consult Consult date: 01/09/22 - History of Present Illness Patient is a 61-year male with a past medical history significant for renal transplant on immunosuppressive medication patient was recently admitted at this facility about a month ago and this patient did have a nonhealing wound on the plantar aspect of his left foot concerning for underlying osteomyelitis culture positive for MSSA and Klebsiella, the patient also have MSSA bacteremia, patient was advised cefepime and oral Flagyl x6 weeks which apparently the patient was receiving at the local longterm patient was supposed to follow- up in the office however the patient has not been seen in the office he did follow at the wound care center patient is now presenting to the [facility] ER secondary to fever and the patient is complaining of increasing pain to the left foot area, patient on presentation to the hospital did have a fever of 101 F patient did have white count of 13.6 with a left shift patient did have elevated BUN and creatinine with a creatinine of 2.33 liver enzymes are normal urine has been negative patient did have x-ray of the foot new region of the lateral aspect of the cuboidal bone consistent with osteomyelitis patient was started on vancomycin infectious disease was consulted for further management of antibiotic therapy Past Medical History Past Medical History: Cancer, Skin Disorder Additional Past Medical History / Comment(s): RT FOOT OPEN AREA, PVD, WAS TX FOR DIABETES UP UNTIL HIS TRANSPLANT(). 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 Past Anesthesia/Blood Transfusion Reactions: No Reported Reaction Past Psychological History: Anxiety Smoking Status: Never smoker - Past Family History Father Additional Family Medical History / Comment(s): Pt states father of motorcycle accident 1970 Mother Family Medical History: No Reported History Medications and Allergies Home Medications Medication Instructions Recorded Confirmed Type Aspirin 81 mg PO DAILY 09/27/13 01/09/22 History Enalapril [Vasotec] 20 mg PO HS 09/27/13 01/09/22 History Lovastatin [Mevacor] 20 mg PO HS 09/27/13 01/09/22 History Multivitamin [Men's Multi-Vitamin] 1 tab PO DAILY 09/27/13 01/09/22 History mycophenolate mofetiL [Cellcept] 500 mg PO BID 09/27/13 01/09/22 History predniSONE 5 mg PO DAILY 09/27/13 01/09/22 History Tacrolimus [Prograf] 1 mg PO BID 01/03/14 01/09/22 History Cholecalciferol [Vitamin D3 (25 25 mcg PO DAILY 12/02/14 01/09/22 History Mcg = 1000 Iu)] Dorzolamide 2% [Trusopt 2%] 1 drop LEFT EYE BID 12/02/14 01/09/22 History Folic Acid 1 mg PO DAILY 10/20/17 01/09/22 History Sodium Polystyrene Sulfonate 15 gm PO Q14D 02/15/18 01/09/22 History [Kayexalate] carvediloL [Coreg] 6.25 mg PO BID 02/15/18 01/09/22 History Brimonidine Tartrate/Timolol 1 drop BOTH EYES BID 11/25/21 01/09/22 History [Combigan 0.2%-0.5% Eye Drops] Calcium Carbonate [Tums] 500 mg PO TID PRN 11/25/21 01/09/22 History NIFEdipine XL [Procardia XL] 60 mg PO BID 11/25/21 01/09/22 History Cefepime [Maxipime] 2 gm IVPB Q8HR 35 Days #105 each 12/15/21 01/09/22 Rx Gabapentin 300 mg PO HS #30 cap 12/16/21 01/09/22 Rx Acetaminophen [Tylenol 8 Hour] 650 mg PO Q6H PRN 01/09/22 01/09/22 History Heparin Lock Flush Solution 10 30 units IV Q8H 01/09/22 01/09/22 History Units/Ml Latanoprost/Pf [Latanoprost 0.005% 1 drop BOTH EYES HS 01/09/22 01/09/22 History Eye Drop] Melatonin 3 mg PO HS 01/09/22 01/09/22 History Allergies Allergy/AdvReac Type Severity Reaction Status Date / Time latex Allergy Rash/Hives Verified 01/09/22 13:28 Penicillins Allergy Rash/Hives Verified 01/09/22 13:28 Physical Exam Vitals: Vital Signs Temp Pulse Resp BP Pulse Ox 01/09/22 10:00 73 18 116/68 01/09/22 08:10 98.5 F 82 18 141/76 97 01/09/22 07:09 83 18 143/77 95 01/09/22 04:36 101 F H 89 17 145/78 98 Intake and Output 01/08/22 01/09/22 01/09/22 22:59 06:59 14:59 Other: Weight 58.967 kg Results CBC & Chem 7: 01/09/22 04:39 01/09/22 04:39 Labs: Abnormal Lab Results - Last 24 Hours (Table) 01/09/22 01/09/22 01/09/22 Range/Units 04:39 04:39 04:39 WBC 13.6 H (3.8-10.6) k/uL RBC 3.11 L (4.30-5.90) m/uL Hgb 9.1 L D (13.0-17.5) gm/dL Hct 28.3 L (39.0-53.0) % RDW 15.8 H (11.5-15.5) % Neutrophils # (Manual) 10.61 H (1.3-7.7) k/uL Monocytes # (Manual) 1.09 H (0-1.0) k/uL PT 12.5 H (9.0-12.0) sec INR 1.2 H (<1.2) Chloride 109 H (98-107) mmol/L Carbon Dioxide 20 L (22-30) mmol/L BUN 39 H (9-20) mg/dL Creatinine 2.33 H (0.66-1.25) mg/dL Glucose 103 H (74-99) mg/dL Magnesium 1.5 L (1.6-2.3) mg/dL Albumin 2.8 L (3.5-5.0) g/dL Urine Protein (Negative) Urine Blood (Negative) Urine Bacteria (None) /hpf Urine Mucus (None) /hpf 01/09/22 Range/Units 10:05 WBC (3.8-10.6) k/uL RBC (4.30-5.90) m/uL Hgb (13.0-17.5) gm/dL Hct (39.0-53.0) % RDW (11.5-15.5) % Neutrophils # (Manual) (1.3-7.7) k/uL Monocytes # (Manual) (0-1.0) k/uL PT (9.0-12.0) sec INR (<1.2) Chloride (98-107) mmol/L Carbon Dioxide (22-30) mmol/L BUN (9-20) mg/dL Creatinine (0.66-1.25) mg/dL Glucose (74-99) mg/dL Magnesium (1.6-2.3) mg/dL Albumin (3.5-5.0) g/dL Urine Protein 1+ H (Negative) Urine Blood Small H (Negative) Urine Bacteria Rare H (None) /hpf Urine Mucus Rare H (None) /hpf Assessment and Plan Plan: 1patient presented to hospital with sepsis and respiratory have fever elevated white count with a source possible left diabetic foot ulcer this patient currently being treated for osteomyelitis of the left foot with local culture positive for Klebsiella and MSSA and the patient did have MSSA bacteremia about a month ago now with new fever and white count question of PICC line infection as the patient left foot wound seems to be healing well and there was no evidence of any cellulitis or any purulent drainage clinically patient abdominal soft clinical examination chest is clear to auscultation and urine was negative. 2patient with renal insufficiency and high risk of nephrotoxicity from vancomycin. 3we will discontinue vancomycin. 4start the patient on daptomycin and oral Flagyl while waiting for the culture to finalize. We will follow on clinical condition and cultures to further adjust medication if needed Thank you for this consultation will follow this patient along with you Time with Patient: Greater than 30
[2022-01-09] MEDS: DORZOLAMIDE HCL 2% DROPS 10 ML BTL LEFT EYE SCH (23:24)
[2022-01-09] MEDS: LATANOPROST 0.005% OPHTH DROPS 2.5 ML BTL BOTH EYES SCH (23:24)
[2022-01-10] MEDS: LACTATED RINGERS 1,000 ML IV SCH ×5 (01:25→23:59)
[2022-01-10] MEDS ORDERED: VANCOMYCIN 1,000 MG in SODIUM CHLORIDE 0.9% 250 ML IVPB SCH (05:00)
[2022-01-10] MEDS: ASPIRIN 81 MG PO SCH (09:20)
[2022-01-10] MEDS: HEPARIN SODIUM,PORCINE/PF 5,000 UNIT/0.5 ML SYRINGE SQ SCH ×3 (09:20→23:58)
[2022-01-10] MEDS: metroNIDAZOLE 500 MG TAB PO SCH ×3 (09:20→22:15)
[2022-01-10] MEDS: MULTIVITAMINS, THERA 1 EACH TAB PO SCH (09:20)
[2022-01-10] MEDS: carvediloL 6.25 MG TAB PO SCH ×2 (09:20→22:15)
[2022-01-10] MEDS: NON FORMULARY DRUG (Brimonidine Tartrate/Timolol [Combigan 0.2%-0.5% Eye Drops] 5 ML Ml) BOTH EYES SCH ×2 (09:21→21:55)
[2022-01-10] MEDS: predniSONE 5 MG TAB PO SCH (09:22)
[2022-01-10] MEDS: DORZOLAMIDE HCL 2% DROPS 10 ML BTL LEFT EYE SCH ×2 (09:25→22:16)
[2022-01-10 10:29] LABS: Basophils # (A) 0.06 X 10*3/uL (0.00-0.10); Basophils % (A) 0.6 %; Eosinophils # (A) 0.17 X 10*3/uL (0.04-0.35); Eosinophils % (A) 1.7 %; HCT 26.4 % (39.6-50.0); HGB 8.6 g/dL (13.0-17.0); Immature Grans, Automated 0.5 %; Lymphocytes # (A) 1.26 X 10*3/uL (0.90-5.00); Lymphocytes % (A) 12.5 %; MCH 29.4 pg (27.0-32.0); MCHC 32.6 g/dL (32.0-37.0); MCV 90.1 fL (80.0-97.0); Mean Platelet Volume 9.8 fL (9.5-12.2); Monocytes # (A) 1.21 X 10*3/uL (0.20-1.00); Monocytes % (A) 12.1 %; NRBC Per 100 WBC 0 /100 WBCS (0.0-0.0); Neutrophils # (A) 7.29 X 10*3/uL (1.80-7.70); Neutrophils % (A) 72.6 %; Platelet Count 334 X 10*3/uL (140-440); RBC 2.93 X 10*6/uL (4.40-5.60); RDW 15.8 % (11.5-14.5); WBC 10.04 X 10*3/uL (4.50-10.00)
[2022-01-10 10:47] LABS: ALT 17 U/L (10-49); AST 27 U/L (14-35); African American GFR (CKD) 36.6 (60.0-200.0); Albumin 2.7 g/dL (3.8-4.9); Albumin/Globulin Ratio 0.82 (1.60-3.17); Alkaline Phosphatase 66 U/L (41-126); BUN/Creat Ratio 16.91 Ratio (12.00-20.00); Blood Urea Nitrogen 37.2 mg/dL (9.0-27.0); Calcium 8.4 mg/dL (8.7-10.3); Carbon Dioxide 19.4 mmol/L (20.0-27.5); Chloride 109 mmol/L (96-109); Globulin 3.3 g/dL (1.6-3.3); Glucose 88 mg/dL (70-110); Magnesium 2.3 mg/dL (1.5-2.4); Non-African American GFR(CKD) 31.6 (60.0-200.0); Phosphorus 3.6 mg/dL (2.4-5.1); Potassium 3.6 mmol/L (3.5-5.5); Sodium 139 mmol/L (135-145); Total Bilirubin <0.15 mg/dL (0.30-1.20)
--- NOTE | 2022-01-10 11:05 | P.PN ---
Subjective Patient is seen in follow-up for acute kidney injury and renal transplant management. Renal function is stable. No difficulty with urination. No vomiting or diarrhea. Oral intake is fair. Vital signs are stable. General: Awake. No acute distress. HEENT: Head exam is unremarkable. LUNGS: Breath sounds decreased. HEART: Rate and Rhythm are regular. ABDOMEN: Soft, no distention. EXTREMITITES: No edema. No drainage. Objective - Vital Signs Vital signs: Vital Signs Temp 98.6 F 01/10/22 07:46 Pulse 79 01/10/22 07:46 Resp 17 01/10/22 07:46 BP 115/61 01/10/22 07:46 Pulse Ox 96 01/10/22 07:46 FiO2 Intake & Output 01/09/22 01/10/22 01/10/22 18:59 06:59 18:59 Output Total 400 Balance -400 Weight 58.967 kg Output: Urine 400 Other: Voiding Method Urinal - Labs CBC & Chem 7: 01/10/22 06:49 01/10/22 06:49 Labs: Abnormal Lab Results - Last 24 Hours (Table) 01/09/22 01/10/22 01/10/22 Range/Units 11:46 06:49 06:49 WBC 10.04 H (4.50-10.00) X 10*3/uL RBC 2.93 L (4.40-5.60) X 10*6/uL Hgb 8.6 L (13.0-17.0) g/dL Hct 26.4 L (39.6-50.0) % RDW 15.8 H (11.5-14.5) % Immature Gran # 0.05 H (0.00-0.04) X 10*3/uL Monocytes # 1.21 H (0.20-1.00) X 10*3/uL Carbon Dioxide 19.4 L (20.0-27.5) mmol/L BUN 37.2 H (9.0-27.0) mg/dL Creatinine 2.2 H (0.6-1.5) mg/dL Est GFR (CKD-EPI)AfAm 36.6 L (60.0-200.0) Est GFR (CKD-EPI)NonAf 31.6 L (60.0-200.0) Calcium 8.4 L (8.7-10.3) mg/dL Iron 12 L (65-175) ug/dL TIBC 154 L (228-460) ug/dL % Saturation 8.05 L (15.00-50.00) Transferrin 110.0 L (204.0-354.0) mg/dL Total Bilirubin <0.15 L (0.30-1.20) mg/dL Total Protein 6.0 L (6.2-8.2) g/dL Albumin 2.7 L (3.8-4.9) g/dL Albumin/Globulin Ratio 0.82 L (1.60-3.17) g/dL Microbiology - Last 24 Hours (Table) 01/09/22 04:45 Blood Culture - Preliminary Blood No Growth after 24 hours 01/09/22 04:39 Blood Culture - Preliminary Blood No Growth after 24 hours Assessment and Plan Plan: Assessment: 1. Acute allograft dysfunction secondary to ATN secondary to severe sepsis. Rule out Prograf toxicity. Creatinine 2.33 on admission and is 2.2 today. Baseline creatinine near 1 from November 2021. 2. Status post simultaneous kidney pancreas transplant from 1997 done at [facility]. 3. Left diabetic foot ulcer/osteomyelitis on antibiotics. ID following. 4. Metabolic acidosis secondary to acute kidney injury. 5. Anemia of chronic kidney disease. Iron deficiency noted. 6. Hypertension with chronic disease. Controlled. 7. Hypomagnesemia from poor intake and CNI induced magnesium losses. Replaced. Improved. Plan: Resume LR at 75 cc/hr. Follow-up Prograf level. Hold Prograf until level is back. Hold nifedipine for systolic blood pressure less than 120. Continue to hold Vasotec for now. Add IV iron. Avoid nephrotoxins. Continue to monitor renal function and urine output. Check renal ultrasound and bladder scan.
--- NOTE | 2022-01-10 12:22 | US ---
EXAMINATION TYPE: US renal transplant w dop DATE OF EXAM: 01/10/2022 COMPARISON: NONE CLINICAL HISTORY: zulma. h/o kidney transplant 1997, patient thinks one kidney was removed but unsure w hich, abnormal labs EXAM PERFORMED: Grayscale on [place] [facility] and Doppler duplex and Grayscale imaging of the transplan [place] kidney. EXAM MEASUREMENTS: [place] Right Kidney: 7.2 x 3.3 x 3.8cm [place] Left Kidney: not seen Transplant Kidney: 14.2 x 7.0 x 7.8cm Location of transplanted kidney: left pelvis ANATOMY: [place] Right Kidney: atrophic and no corticomedullary differentiation [place] Left Kidney: not seen, possible surgical absent Transplant Kidney: multiple cysts seen, largest lateral = 6.4 x 5.4 x 6.1cm . Flow is documented to the renal transplant with no perinephric fluid collection or hydronephrosis. Bladder: not distended IMPRESSION: 1. Renal transplant noted with multiple cysts the largest measuring 6.4 cm. No hydronephrosis or neph rolithiasis. 2. Correlate for chronic [facility] renal disease
[2022-01-10] MEDS: SODIUM FERRIC GLUCONAT-SUCROSE 125 MG in SODIUM CHLORIDE 0.9% 100 ML IVPB SCH (12:49)
--- NOTE | 2022-01-10 14:41 | P.PN ---
Subjective Progress Note Date: 01/10/22 Hospital course: Patient is a very pleasant 61-year-old male with a past medical history of diabetes status post renal and pancreatic transplant in 1997, neuropathy, peripheral vascular disease, skin cancer and recent diagnosis and treatment of staph aureus bacteremia and osteomyelitis of left foot. Patient recently underwent hospitalization for staph aureus bacteremia and osteomyelitis of left foot from 12/07/21 through 12/15/21. [facility] for recommended 5 more weeks of IV antibiotics per infectious disease. Patient discharged on Flagyl, cefepime, and nystatin. [facility] care facility sent patient back to the emergency department 01/09/22 secondary to fever and reports of increased pain to left foot. Patient currently reporting increased pain to his left foot accompanied by fatigue and feeling very sleepy. He denies having any headache, lightheadedness, dizziness, chest pain, palpitations, shortness of breath, nausea, vomiting, changes in urinary or bowel function or any other complaints at this time. In the emergency department patient underwent full evaluation. He was found to be febrile with a temp of 101.0F, and leukocytosis with WBC count of 13.6 and an acute kidney injury with BUN of 39, creatinine 2.33, and GFR of 30 with baseline creatinine of 0.9. Magnesium 1.5. Urinalysis negative for infection. Patient started on IV antibiotics vancomycin and admitted under our services with consultation to infectious disease and nephrology. Renal ultrasound revealing renal transplant noted with multiple cysts the largest measuring 6.4 cm, no hydronephrosis or nephrolithiasis. Physical exam: Patient seen and fully evaluated at bedside this morning. He currently reports he is resting comfortably and "I feel much better than I did". He currently denies having any headache, lightheadedness, dizziness, chest pain, palpitations, shortness of breath, nausea, vomiting, decreased urinary output her difficulties with urination, abdominal pain, flank pain, or any other complaints. Patient does report persistent pain in left foot which is currently controlled with current pain medication regimen. Patient with minimal improvement in renal function. BUN 37.2, creatinine 2.2, and GFR of 31.6. Nephrology following. Recommending continued lactated Ringer's at 75 mL's per hour and also started patient on Ferrlecit for treatment of his iron deficiency anemia. We continue to await tacrolimus level results. At this time we will continue prednisone and antirejection medication CellCept and also continue to hold tacrolimus pending levels. Repeat x-ray left foot revealing a new erosion of the lateral aspect of the cuboidal bone consistent with osteomyelitis measuring 10 mm. vascular surgery also consulted at this time. Vital signs reviewed and stable. General: Nontoxic, no distress and appears stated age. Derm: Skin warm and dry, normal coloration for ethnicity. Head: Atraumatic, normocephalic and symmetric. Eyes: EOMs intact, no lid lag, and anicteric sclera Mouth: no lip lesions, mucus membranes moist Cardiovascular: regular rate and rhythm with normal S1S2, no murmur, positive posterior tibial pulses bilaterally, and cap refill < 2 seconds. Lungs: Respirations even, regular, and unlabored on room air. Lungs CTA bilater ally, no rhonchi, no rales, no wheezing, and no accessory muscle usage. Abdominal: soft, nontender to palpation, no guarding, no appreciable organomegaly Ext: ROM intact. No gross muscle atrophy, trace edema, no contractures, dressing to left foot clean dry and intact. Neuro: Speech clear, face symmetrical and CN II-XII grossly intact with no noted focal neuro deficits Psych: Alert and oriented to person, place, time, and situation. Appropriate and pleasant affect. Assessment and Plan of Care: Sepsis secondary to Osteomyelitis of left foot resulting from nonhealing/infected diabetic ulcer left foot plantar region Recent treatment of staph aureus bacteremia -Blood cultures obtained and sent to lab for analysis, showing no growth 24 hours -Continue IV antibiotics: Daptomycin and Flagyl pending further results -Infectious disease following -Symptomatic care and pain management. -Repeat x-ray left foot revealing a new erosion of the lateral aspect of the cuboidal bone consistent with osteomyelitis measuring 10 mm. -Vascular surgery consulted. Acute kidney injury, status post renal transplant -Continue prednisone and antirejection medication CellCept, we will hold tacrolimus pending levels and further recommendations by nephrology secondary to acute kidney in renal and pancreatic transplant recipient. -Nephrology consulted. -Continue Gentle IV fluid hydration with LR at 75 mL's per hour. -Continued close monitoring with repeat a.m. labs. Hypomagnesemia, resolved -Replaced, we will continue to monitor with repeat a.m. labs. Iron deficiency anemia -Globin A.6. Iron 12, TIBC 154, iron percentage saturation 8.05 and transferrin of 110. -Pt started on Ferrlecit infusions. Peripheral vascular disease Neuropathy -Continue daily medication management with Neurontin. The patient is admitted with an anticipated greater than 2 midnight stay for evaluation of osteomyelitis CODE STATUS: Full code DVT prophylaxis: Heparin Discussed with: Patient and RN Anticipated discharge date: Clinical course to determine Anticipated discharge place: Return to SNF A total of 35 minutes was spent on the care of this complex patient more than 50% of the time was spent in counseling and care coordination. I reviewed the above documentation as written by our ROBERTO who is the original author of this note, and I agree with the assessment and plan with no changes. Objective - Vital Signs Vital signs: Vital Signs Temp 98.6 F 01/10/22 07:46 Pulse 79 01/10/22 07:46 Resp 17 01/10/22 07:46 BP 115/61 01/10/22 07:46 Pulse Ox 96 01/10/22 07:46 FiO2 Intake & Output 01/09/22 01/10/22 01/10/22 18:59 06:59 18:59 Output Total 400 Balance -400 Weight 58.967 kg Output: Urine 400 Other: Voiding Method Urinal - Labs CBC & Chem 7: 01/18/22 06:44 01/18/22 06:44 Labs: Abnormal Lab Results - Last 24 Hours (Table) 01/09/22 01/09/22 Range/Units 10:05 11:46 Iron 12 L (65-175) ug/dL TIBC 154 L (228-460) ug/dL % Saturation 8.05 L (15.00-50.00) Transferrin 110.0 L (204.0-354.0) mg/dL Urine Protein 1+ H (Negative) Urine Blood Small H (Negative) Urine Bacteria Rare H (None) /hpf Urine Mucus Rare H (None) /hpf Microbiology - Last 24 Hours (Table) 01/09/22 04:45 Blood Culture - Preliminary Blood No Growth after 24 hours 01/09/22 04:39 Blood Culture - Preliminary Blood No Growth after 24 hours
[2022-01-10] MEDS: MELATONIN 3 MG TABLET PO SCH (22:15)
[2022-01-10] MEDS: ATORVASTATIN 10 MG TAB PO SCH (22:15)
[2022-01-10] MEDS: GABAPENTIN 300 MG CAP PO SCH (22:15)
[2022-01-10] MEDS: LATANOPROST 0.005% OPHTH DROPS 2.5 ML BTL BOTH EYES SCH (22:15)
[2022-01-11] MEDS: HEPARIN SODIUM,PORCINE/PF 5,000 UNIT/0.5 ML SYRINGE SQ SCH ×3 (09:58→22:45)
[2022-01-11] MEDS: ASPIRIN 81 MG PO SCH (10:18)
[2022-01-11] MEDS: carvediloL 6.25 MG TAB PO SCH ×2 (10:18→20:15)
--- NOTE | 2022-01-11 10:18 | P.CONS ---
History of Present Illness - Reason for Consult Consult date: 01/11/22 wound care - History of Present Illness This is a 61-year-old patient known to the wound care center being seen on 4 S. for nonhealing ulceration to the left plantar foot. The ulceration appears to be healing with no signs of infection. The wound bed appears to have epithelialized skin with callus. Patient's past medical history significant for diabetes until his transplant in 1997. Patient had a pancreatic and kidney transplant, neuropathy to bilateral feet Review Of Systems: Constitutional: No fever, no chills, no night sweats. No weight change. No weakness, fatigue or lethargy. No daytime sleepiness. Integumentary:reports wounds, no lesions. No rash or pruritus. No unusual bruising. No change in hair or nails. Physical exam: General Appearance: Alert, cooperative, no distress, appears stated age. Skin: See HPI all other Skin color, texture, tugor normal, no rashes or lesions. Neurologic: Alert oriented x3 Assessment: 1. Nonhealing ulceration of left plantar foot 2. Osteomyelitis Plan: 1. Apply collagen, saline moistened gauze, dry gauze, rolled gauze and paper tape. Thank you for the consultation any questions please contact the wound care center DNP note has been reviewed and discussed with Dr. Villalpando and the impression and plan of care has been directed as dictated. Past Medical History Past Medical History: Cancer, Skin Disorder Additional Past Medical History / Comment(s): RT FOOT OPEN AREA, PVD, WAS TX FOR DIABETES UP UNTIL HIS TRANSPLANT(). 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 Past Anesthesia/Blood Transfusion Reactions: No Reported Reaction Past Psychological History: Anxiety Smoking Status: Never smoker - Past Family History Father Additional Family Medical History / Comment(s): Pt states father of motorcycle accident 1970 Mother Family Medical History: No Reported History Medications and Allergies Home Medications Medication Instructions Recorded Confirmed Type Aspirin 81 mg PO DAILY 09/27/13 01/09/22 History Enalapril [Vasotec] 20 mg PO HS 09/27/13 01/09/22 History Lovastatin [Mevacor] 20 mg PO HS 09/27/13 01/09/22 History Multivitamin [Men's Multi-Vitamin] 1 tab PO DAILY 09/27/13 01/09/22 History mycophenolate mofetiL [Cellcept] 500 mg PO BID 09/27/13 01/09/22 History predniSONE 5 mg PO DAILY 09/27/13 01/09/22 History Tacrolimus [Prograf] 1 mg PO BID 01/03/14 01/09/22 History Cholecalciferol [Vitamin D3 (25 25 mcg PO DAILY 12/02/14 01/09/22 History Mcg = 1000 Iu)] Dorzolamide 2% [Trusopt 2%] 1 drop LEFT EYE BID 12/02/14 01/09/22 History Folic Acid 1 mg PO DAILY 10/20/17 01/09/22 History Sodium Polystyrene Sulfonate 15 gm PO Q14D 02/15/18 01/09/22 History [Kayexalate] carvediloL [Coreg] 6.25 mg PO BID 02/15/18 01/09/22 History Brimonidine Tartrate/Timolol 1 drop BOTH EYES BID 11/25/21 01/09/22 History [Combigan 0.2%-0.5% Eye Drops] Calcium Carbonate [Tums] 500 mg PO TID PRN 11/25/21 01/09/22 History NIFEdipine XL [Procardia XL] 60 mg PO BID 11/25/21 01/09/22 History Cefepime [Maxipime] 2 gm IVPB Q8HR 35 Days #105 each 12/15/21 01/09/22 Rx Gabapentin 300 mg PO HS #30 cap 12/16/21 01/09/22 Rx Acetaminophen [Tylenol 8 Hour] 650 mg PO Q6H PRN 01/09/22 01/09/22 History Heparin Lock Flush Solution 10 30 units IV Q8H 01/09/22 01/09/22 History Units/Ml Latanoprost/Pf [Latanoprost 0.005% 1 drop BOTH EYES HS 01/09/22 01/09/22 History Eye Drop] Melatonin 3 mg PO HS 01/09/22 01/09/22 History Allergies Allergy/AdvReac Type Severity Reaction Status Date / Time latex Allergy Rash/Hives Verified 01/09/22 13:28 Penicillins Allergy Rash/Hives Verified 01/09/22 13:28 Physical Exam Vitals: Vital Signs Temp Pulse Resp BP Pulse Ox 01/11/22 08:26 98.5 F 89 17 134/63 01/11/22 02:43 98.3 F 78 19 125/73 93 L 01/10/22 20:20 98.3 F 82 18 134/82 96 01/10/22 14:00 98.2 F 78 17 119/58 97 Intake and Output 01/10/22 01/11/22 01/11/22 22:59 06:59 14:59 Output Total 725 450 Balance -725 -450 Output: Urine 725 450 Other: Voiding Method Urinal # Voids 2 Results CBC & Chem 7: 01/10/22 06:49 01/10/22 06:49 Labs: Abnormal Lab Results - Last 24 Hours (Table) 01/10/22 01/10/22 Range/Units 06:49 06:49 WBC 10.04 H (4.50-10.00) X 10*3/uL RBC 2.93 L (4.40-5.60) X 10*6/uL Hgb 8.6 L (13.0-17.0) g/dL Hct 26.4 L (39.6-50.0) % RDW 15.8 H (11.5-14.5) % Immature Gran # 0.05 H (0.00-0.04) X 10*3/uL Monocytes # 1.21 H (0.20-1.00) X 10*3/uL Carbon Dioxide 19.4 L (20.0-27.5) mmol/L BUN 37.2 H (9.0-27.0) mg/dL Creatinine 2.2 H (0.6-1.5) mg/dL Est GFR (CKD-EPI)AfAm 36.6 L (60.0-200.0) Est GFR (CKD-EPI)NonAf 31.6 L (60.0-200.0) Calcium 8.4 L (8.7-10.3) mg/dL Total Bilirubin <0.15 L (0.30-1.20) mg/dL Total Protein 6.0 L (6.2-8.2) g/dL Albumin 2.7 L (3.8-4.9) g/dL Albumin/Globulin Ratio 0.82 L (1.60-3.17) g/dL Microbiology - Last 24 Hours (Table) 01/09/22 04:45 Blood Culture - Preliminary Blood No Growth after 48 hours 01/09/22 04:39 Blood Culture - Preliminary Blood No Growth after 48 hours Assessment and Plan (1) Non-pressure chronic ulcer of other part of left foot with fat layer exposed Current Visit: Yes Status: Acute Code(s): L97.522 - NON-PRS CHRONIC ULCER OTH PRT LEFT FOOT W FAT LAYER EXPOSED SNOMED Code(s): 233740337 (2) Osteomyelitis Current Visit: Yes Status: Acute Code(s): M86.9 - OSTEOMYELITIS, UNSPECIFIED SNOMED Code(s): 00918902
[2022-01-11] MEDS: metroNIDAZOLE 500 MG TAB PO SCH ×3 (10:19→20:15)
[2022-01-11] MEDS: predniSONE 5 MG TAB PO SCH (10:19)
[2022-01-11] MEDS: MULTIVITAMINS, THERA 1 EACH TAB PO SCH (10:20)
[2022-01-11] MEDS: NON FORMULARY DRUG (Brimonidine Tartrate/Timolol [Combigan 0.2%-0.5% Eye Drops] 5 ML Ml) BOTH EYES SCH ×2 (10:24→18:59)
[2022-01-11] MEDS: SODIUM FERRIC GLUCONAT-SUCROSE 125 MG in SODIUM CHLORIDE 0.9% 100 ML IVPB SCH (10:30)
[2022-01-11 10:35] LABS: HCT 26.5 % (39.6-50.0); HGB 8.6 g/dL (13.0-17.0); MCH 29.1 pg (27.0-32.0); MCHC 32.5 g/dL (32.0-37.0); MCV 89.5 fL (80.0-97.0); Mean Platelet Volume 9.8 fL (9.5-12.2); NRBC Per 100 WBC 0 /100 WBCS (0.0-0.0); Platelet Count 370 X 10*3/uL (140-440); RBC 2.96 X 10*6/uL (4.40-5.60); RDW 15.9 % (11.5-14.5); WBC 12.13 X 10*3/uL (4.50-10.00)
[2022-01-11] MEDS: DORZOLAMIDE HCL 2% DROPS 10 ML BTL LEFT EYE SCH ×2 (10:53→20:16)
[2022-01-11 12:31] LABS: Magnesium 2.1 mg/dL (1.5-2.4)
--- NOTE | 2022-01-11 12:40 | P.PN ---
Subjective Patient is seen in follow-up for acute kidney injury and renal transplant management. Renal function stable as of yesterday. No difficulty with ur ination. No vomiting or diarrhea. Oral intake is fair. Hemodynamically stable. Vital signs are stable. General: Awake. No acute distress. HEENT: Head exam is unremarkable. LUNGS: Breath sounds decreased. HEART: Rate and Rhythm are regular. ABDOMEN: Soft, no distention. EXTREMITITES: No edema. No drainage. Objective - Vital Signs Vital signs: Vital Signs Temp 98.5 F 01/11/22 08:26 Pulse 89 01/11/22 08:26 Resp 17 01/11/22 08:26 BP 134/63 01/11/22 08:26 Pulse Ox 93 L 01/11/22 02:43 FiO2 Intake & Output 01/10/22 01/11/22 01/11/22 18:59 06:59 18:59 Output Total 550 625 Balance -550 -625 Output: Urine 550 625 Other: Voiding Method Urinal # Voids 2 - Labs CBC & Chem 7: 01/11/22 07:00 01/10/22 06:49 Labs: Abnormal Lab Results - Last 24 Hours (Table) 01/11/22 Range/Units 07:00 WBC 12.13 H (4.50-10.00) X 10*3/uL RBC 2.96 L (4.40-5.60) X 10*6/uL Hgb 8.6 L (13.0-17.0) g/dL Hct 26.5 L (39.6-50.0) % RDW 15.9 H (11.5-14.5) % Microbiology - Last 24 Hours (Table) 01/09/22 04:45 Blood Culture - Preliminary Blood No Growth after 48 hours 01/09/22 04:39 Blood Culture - Preliminary Blood No Growth after 48 hours Assessment and Plan Plan: Assessment: 1. Acute allograft dysfunction secondary to ATN secondary to severe sepsis. Rule out Prograf toxicity. Creatinine 2.33 on admission -2.2 yesterday. Baseline creatinine near 1 from November 2021. No hydronephrosis noted on ultrasound. 2. Status post simultaneous kidney pancreas transplant from 1997 done at [facility] [place]. 3. Left diabetic foot ulcer/osteomyelitis on antibiotics. ID following. Also been followed by wound care. 4. Metabolic acidosis secondary to acute kidney injury. 5. Anemia of chronic kidney disease. Iron deficiency noted. 6. Hypertension with chronic disease. Controlled. 7. Hypomagnesemia from poor intake and CNI induced magnesium losses. Replaced. Improved. Plan: Maintain IV fluids. Follow-up Prograf level. Hold Prograf until level is back. Hold nifedipine for systolic blood pressure less than 120. Continue to hold Vasotec for now. Maintain IV iron. Avoid nephrotoxins. Continue to monitor renal function and urine output.
[2022-01-11 12:59] LABS: ALT 12 U/L (10-49); AST 22 U/L (14-35); African American GFR (CKD) 28.6 (60.0-200.0); Albumin 2.6 g/dL (3.8-4.9); Albumin/Globulin Ratio 0.79 (1.60-3.17); Alkaline Phosphatase 79 U/L (41-126); BUN/Creat Ratio 14.26 Ratio (12.00-20.00); Blood Urea Nitrogen 38.5 mg/dL (9.0-27.0); Calcium 8.3 mg/dL (8.7-10.3); Carbon Dioxide 15.5 mmol/L (20.0-27.5); Chloride 110 mmol/L (96-109); Globulin 3.3 g/dL (1.6-3.3); Glucose 83 mg/dL (70-110); Non-African American GFR(CKD) 24.7 (60.0-200.0); Potassium 3.8 mmol/L (3.5-5.5); Sodium 139 mmol/L (135-145); Total Bilirubin <0.15 mg/dL (0.30-1.20); Total Protein 5.9 g/dL (6.2-8.2)
--- NOTE | 2022-01-11 13:41 | US ---
EXAMINATION TYPE: US arterial LE multi level DATE OF EXAM: 01/11/2022 9:32 AM CLINICAL HISTORY: Left foot nonhealing wound. Doppler Waveforms: Right: Multiphasic Left: Multiphasic Ankle-Brachial Indices: Right: 0.87 Left: 0.67 IMPRESSION: 1. Abnormal LORRAINE suggestive of bilateral moderate atherosclerotic disease consider dedicated arteriogr am. Findings more significant on the left.
--- NOTE | 2022-01-11 14:33 | P.GSCN ---
History of Present Illness Consult date: 01/11/22 Reason for Consult: Osteomyelitis of left foot Requesting physician: Preston Poole History of present illness: Placenta pleasant 61-year-old male with a past medical history of diabetes mellitus, kidney and pancreas transplant in 1997 and history of chronic wounds to the left foot. Patient has followed in the past with the wound care center. He states that he is currently [place] and they've been caring for wound that is on the bottom of this left foot. He states he's had the wound for at least 3 months. He denies any fevers, chills, or pain. Eyes any history of peripheral arterial disease or prior intervention. He had a x-ray of the left foot reports pes planus deformity. Deformities of the tarsal bones with sclerosis and consistent with neuropathic joint. There is no erosion of the lateral aspect of the cuboidal bone consistent with osteomyelitis measuring 10 mm. Patient had a fever while he was at [facility] and was complaining of left foot pain so he is brought in for further evaluation. Infectious disease has been following patient. He had a max temp of 101 on admission and has been afebrile since. He is currently on daptomycin. Patient states that he does not do much ambulation well at [facility]. He uses a walker or wheelchair to offload the left foot. Review of Systems A 14 point review systems was completed all pertinent positives and negatives as stated in the HPI. Past Medical History Past Medical History: Cancer, Skin Disorder Additional Past Medical History / Comment(s): RT FOOT OPEN AREA, PVD, WAS TX FOR DIABETES UP UNTIL HIS TRANSPLANT(). 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 Past Anesthesia/Blood Transfusion Reactions: No Reported Reaction Past Psychological History: Anxiety Smoking Status: Never smoker - Past Family History Father Additional Family Medical History / Comment(s): Pt states father of motorcycle accident 1970 Mother Family Medical History: No Reported History Medications and Allergies Home Medications Medication Instructions Recorded Confirmed Type Aspirin 81 mg PO DAILY 09/27/13 01/09/22 History Enalapril [Vasotec] 20 mg PO HS 09/27/13 01/09/22 History Lovastatin [Mevacor] 20 mg PO HS 09/27/13 01/09/22 History Multivitamin [Men's Multi-Vitamin] 1 tab PO DAILY 09/27/13 01/09/22 History mycophenolate mofetiL [Cellcept] 500 mg PO BID 09/27/13 01/09/22 History predniSONE 5 mg PO DAILY 09/27/13 01/09/22 History Tacrolimus [Prograf] 1 mg PO BID 01/03/14 01/09/22 History Cholecalciferol [Vitamin D3 (25 25 mcg PO DAILY 12/02/14 01/09/22 History Mcg = 1000 Iu)] Dorzolamide 2% [Trusopt 2%] 1 drop LEFT EYE BID 12/02/14 01/09/22 History Folic Acid 1 mg PO DAILY 10/20/17 01/09/22 History Sodium Polystyrene Sulfonate 15 gm PO Q14D 02/15/18 01/09/22 History [Kayexalate] carvediloL [Coreg] 6.25 mg PO BID 02/15/18 01/09/22 History Brimonidine Tartrate/Timolol 1 drop BOTH EYES BID 11/25/21 01/09/22 History [Combigan 0.2%-0.5% Eye Drops] Calcium Carbonate [Tums] 500 mg PO TID PRN 11/25/21 01/09/22 History NIFEdipine XL [Procardia XL] 60 mg PO BID 11/25/21 01/09/22 History Cefepime [Maxipime] 2 gm IVPB Q8HR 35 Days #105 each 12/15/21 01/09/22 Rx Gabapentin 300 mg PO HS #30 cap 12/16/21 01/09/22 Rx Acetaminophen [Tylenol 8 Hour] 650 mg PO Q6H PRN 01/09/22 01/09/22 History Heparin Lock Flush Solution 10 30 units IV Q8H 01/09/22 01/09/22 History Units/Ml Latanoprost/Pf [Latanoprost 0.005% 1 drop BOTH EYES HS 01/09/22 01/09/22 History Eye Drop] Melatonin 3 mg PO HS 01/09/22 01/09/22 History Allergies Allergy/AdvReac Type Severity Reaction Status Date / Time latex Allergy Rash/Hives Verified 01/09/22 13:28 Penicillins Allergy Rash/Hives Verified 01/09/22 13:28 Surgical - Exam Vital Signs Temp Pulse Resp BP Pulse Ox 101 F H 89 17 145/78 98 01/09/22 04:36 01/09/22 04:36 01/09/22 04:36 01/09/22 04:36 01/09/22 04:36 General appearance: The patient is alert, oriented, appears in no acute distress. HET: Head is normocephalic and atraumatic. Pupils are equal and reactive. Neck: Supple without lymphadenopathy. Trachea midline. Heart: S1 S2. Regular rate and rhythm. Lungs: Clear to auscultation bilaterally. Abdomen: Soft, nontender, nondistended. Extremities: Normal skin color and turgor. Bilateral palpable femoral pulses. Bilateral popliteal, posterior tibialis and dorsalis pedis Doppler signals present. Bilateral feet with deformities. Left fifth toe without bone present left foot with plantar ulcer without odor, minimal drainage, no redness surrounding ulcer. Neurological: No focal deficits. Strength and sensation are grossly intact. Results - Labs 01/11/22 07:00 01/11/22 07:00 Abnormal Lab Results - Last 24 Hours (Table) 01/10/22 01/10/22 Range/Units 06:49 06:49 WBC 10.04 H (4.50-10.00) X 10*3/uL RBC 2.93 L (4.40-5.60) X 10*6/uL Hgb 8.6 L (13.0-17.0) g/dL Hct 26.4 L (39.6-50.0) % RDW 15.8 H (11.5-14.5) % Immature Gran # 0.05 H (0.00-0.04) X 10*3/uL Monocytes # 1.21 H (0.20-1.00) X 10*3/uL Carbon Dioxide 19.4 L (20.0-27.5) mmol/L BUN 37.2 H (9.0-27.0) mg/dL Creatinine 2.2 H (0.6-1.5) mg/dL Est GFR (CKD-EPI)AfAm 36.6 L (60.0-200.0) Est GFR (CKD-EPI)NonAf 31.6 L (60.0-200.0) Calcium 8.4 L (8.7-10.3) mg/dL Total Bilirubin <0.15 L (0.30-1.20) mg/dL Total Protein 6.0 L (6.2-8.2) g/dL Albumin 2.7 L (3.8-4.9) g/dL Albumin/Globulin Ratio 0.82 L (1.60-3.17) g/dL Microbiology - Last 24 Hours (Table) 01/09/22 04:45 Blood Culture - Preliminary Blood No Growth after 48 hours 01/09/22 04:39 Blood Culture - Preliminary Blood No Growth after 48 hours Diabetes panel 01/10/22 Range/Units 06:49 Sodium 139 (135-145) mmol/L Potassium 3.6 (3.5-5.5) mmol/L Chloride 109 (96-109) mmol/L Carbon Dioxide 19.4 L (20.0-27.5) mmol/L BUN 37.2 H (9.0-27.0) mg/dL Creatinine 2.2 H (0.6-1.5) mg/dL Glucose 88 (70-110) mg/dL Calcium 8.4 L (8.7-10.3) mg/dL AST 27 (14-35) U/L ALT 17 (10-49) U/L Alkaline Phosphatase 66 (41-126) U/L Total Protein 6.0 L (6.2-8.2) g/dL Albumin 2.7 L (3.8-4.9) g/dL Calcium panel 01/10/22 Range/Units 06:49 Calcium 8.4 L (8.7-10.3) mg/dL Phosphorus 3.6 (2.4-5.1) mg/dL Albumin 2.7 L (3.8-4.9) g/dL Pituitary panel 01/10/22 Range/Units 06:49 Sodium 139 (135-145) mmol/L Potassium 3.6 (3.5-5.5) mmol/L Chloride 109 (96-109) mmol/L Carbon Dioxide 19.4 L (20.0-27.5) mmol/L BUN 37.2 H (9.0-27.0) mg/dL Creatinine 2.2 H (0.6-1.5) mg/dL Glucose 88 (70-110) mg/dL Calcium 8.4 L (8.7-10.3) mg/dL Adrenal panel 01/10/22 Range/Units 06:49 Sodium 139 (135-145) mmol/L Potassium 3.6 (3.5-5.5) mmol/L Chloride 109 (96-109) mmol/L Carbon Dioxide 19.4 L (20.0-27.5) mmol/L BUN 37.2 H (9.0-27.0) mg/dL Creatinine 2.2 H (0.6-1.5) mg/dL Glucose 88 (70-110) mg/dL Calcium 8.4 L (8.7-10.3) mg/dL Total Bilirubin <0.15 L (0.30-1.20) mg/dL AST 27 (14-35) U/L ALT 17 (10-49) U/L Alkaline Phosphatase 66 (41-126) U/L Total Protein 6.0 L (6.2-8.2) g/dL Albumin 2.7 L (3.8-4.9) g/dL Assessment and Plan Assessment: 1. Nonhealing ulceration of left plantar foot 2. Osteomyelitis 3. Acute on chronic kidney disease 4. History of kidney and pancreas transplant 1997 5. Diabetes 6. Chronic anemia Plan: 1. Continue with IV antibiotics recommendations per infectious disease 2. Patient known to [facility] outpatient wound clinic, will consult for further wound care recommendations 3. The left plantar diabetic ulcer does not appear to be infected, no indication for any surgical intervention at this time. Continue local wound care 4. Arterial duplex reviewed, left LORRAINE 0.67, right LORRAINE 0.87 would recommend outpatient angiogram Thank you for this consultation, we will sign off at this time. The impression and plan of care has been dictated as directed. Dr Klein I performed a history and examination of this patient, discussed the same with the dictator. I agree with the dictator's note ,documented as a scribe. Any additional findings or plans will be noted.
[2022-01-11] MEDS: DAPTOmycin 350 MG in SODIUM CHLORIDE 0.9% 50 ML IVPB SCH (15:25)
[2022-01-11] MEDS: LACTATED RINGERS 1,000 ML IV SCH ×2 (15:30→18:51)
--- NOTE | 2022-01-11 17:24 | P.PN ---
Subjective Progress Note Date: 01/11/22 Hospital course: Patient is a very pleasant 61-year-old male with a past medical history of diabetes status post renal and pancreatic transplant in 1997, neuropathy, peripheral vascular disease, skin cancer and recent diagnosis and treatment of staph aureus bacteremia and osteomyelitis of left foot. Patient recently underwent hospitalization for staph aureus bacteremia and osteomyelitis of left foot from 12/07/21 through 12/15/21. Patient was discharged to long-term facility for recommended 5 more weeks of IV antibiotics per infectious disease. Patient discharged on Flagyl, cefepime, and nystatin. [facility] care facility sent patient back to the emergency department 01/09/22 secondary to fever and reports of increased pain to left foot. Patient currently reporting increased pain to his left foot accompanied by fatigue and feeling very sleepy. He denies having any headache, lightheadedness, dizziness, chest pain, palpitations, shortness of breath, nausea, vomiting, changes in urinary or bowel function or any other complaints at this time. In the emergency department patient underwent full evaluation. He was found to be febrile with a temp of 101.0F, and leukocytosis with WBC count of 13.6 and an acute kidney injury with BUN of 39, creatinine 2.33, and GFR of 30 with baseline creatinine of 0.9. Magnesium 1.5. Urinalysis negative for infection. Patient started on IV antibiotics vancomycin and admitted under our services with consultation to infectious disease and nephrology. Renal ultrasound revealing renal transplant noted with multiple cysts the largest measuring 6.4 cm, no hydronephrosis or nephrolithiasis. Repeat x-ray left foot revealing a new erosion of the lateral aspect of the cuboidal bone consistent with osteomyelitis measuring 10 mm. Vascular surgery consulted. Physical exam: Patient seen and fully evaluated at bedside this morning. Awaiting morning labs to result in tacrolimus levels. Called and spoke with lab at this time and was informed in tacrolimus level will likely not be available until tomorrow morning as this was a send out. At this time due to unknown cause of ANA we will continue to hold tacrolimus, once tacrolimus toxicity has been ruled out patient may resume medication. Patient remains on daptomycin and Flagyl. Blood cultures showing no growth 48 hours and patient has remained afebrile times greater than 24 hours. Vital signs reviewed and stable. General: Nontoxic, no distress and appears stated age. Derm: Skin warm and dry, normal coloration for ethnicity. Head: Atraumatic, normocephalic and symmetric. Eyes: EOMs intact, no lid lag, and anicteric sclera Mouth: no lip lesions, mucus membranes moist Cardiovascular: regular rate and rhythm with normal S1S2, no murmur, positive posterior tibial pulses bilaterally, and cap refill < 2 seconds. Lungs: Respirations even, regular, and unlabored on room air. Lungs CTA bilaterally, no rhonchi, no rales, no wheezing, and no accessory muscle usage. Abdominal: soft, nontender to palpation, no guarding, no appreciable organomegaly Ext: ROM intact. No gross muscle atrophy, trace edema, no contractures, dressing to left foot clean dry and intact. Neuro: Speech clear, face symmetrical and CN II-XII grossly intact with no noted focal neuro deficits Psych: Alert and oriented to person, place, time, and situation. Appropriate and pleasant affect. Assessment and Plan of Care: Sepsis secondary to Osteomyelitis of left foot resulting from nonhealing/infected diabetic ulcer left foot plantar region Recent treatment of staph aureus bacteremia -Blood cultures obtained and sent to lab for analysis, showing no growth to date -Continue IV antibiotics: Daptomycin and Flagyl pending further results -Infectious disease following -Symptomatic care and pain management. -Repeat x-ray left foot revealing a new erosion of the lateral aspect of the cuboidal bone consistent with osteomyelitis measuring 10 mm. -Vascular surgery consulted, appreciate further recommendations Acute kidney injury, status post renal transplant -Continue prednisone and antirejection medication CellCept, we will hold tacrolimus pending levels and further recommendations by nephrology secondary to acute kidney injury in renal and pancreatic transplant recipient. -Nephrology consulted. -Continue Gentle IV fluid hydration with LR at 75 mL's per hour. -Continued close monitoring with repeat a.m. labs. Hypomagnesemia, resolved -Replaced, we will continue to monitor with repeat a.m. labs. Iron deficiency anemia -Globin A.6. Iron 12, TIBC 154, iron percentage saturation 8.05 and transferrin of 110. -Pt started on Ferrlecit infusions. Peripheral vascular disease Neuropathy -Continue daily medication management with Neurontin. CODE STATUS: Full code DVT prophylaxis: Heparin Discussed with: Patient and RN Anticipated discharge date: Clinical course to determine Anticipated discharge place: Return to SNF A total of 35 minutes was spent on the care of this complex patient more than 50% of the time was spent in counseling and care coordination. I reviewed the documentation as provided by the ROBERTO above, who is the original author of this note. I agree with the documented assessment and plan, with the following changes: none Objective - Vital Signs Vital signs: Vital Signs Temp 98.5 F 01/11/22 08:26 Pulse 89 01/11/22 08:26 Resp 17 01/11/22 08:26 BP 134/63 01/11/22 08:26 Pulse Ox 93 L 01/11/22 02:43 FiO2 Intake & Output 01/10/22 01/11/22 01/11/22 18:59 06:59 18:59 Output Total 550 625 Balance -550 -625 Output: Urine 550 625 Other: Voiding Method Urinal # Voids 2 - Labs CBC & Chem 7: 01/17/22 04:50 01/17/22 04:50 Labs: Abnormal Lab Results - Last 24 Hours (Table) 01/10/22 01/10/22 Range/Units 06:49 06:49 WBC 10.04 H (4.50-10.00) X 10*3/uL RBC 2.93 L (4.40-5.60) X 10*6/uL Hgb 8.6 L (13.0-17.0) g/dL Hct 26.4 L (39.6-50.0) % RDW 15.8 H (11.5-14.5) % Immature Gran # 0.05 H (0.00-0.04) X 10*3/uL Monocytes # 1.21 H (0.20-1.00) X 10*3/uL Carbon Dioxide 19.4 L (20.0-27.5) mmol/L BUN 37.2 H (9.0-27.0) mg/dL Creatinine 2.2 H (0.6-1.5) mg/dL Est GFR (CKD-EPI)AfAm 36.6 L (60.0-200.0) Est GFR (CKD-EPI)NonAf 31.6 L (60.0-200.0) Calcium 8.4 L (8.7-10.3) mg/dL Total Bilirubin <0.15 L (0.30-1.20) mg/dL Total Protein 6.0 L (6.2-8.2) g/dL Albumin 2.7 L (3.8-4.9) g/dL Albumin/Globulin Ratio 0.82 L (1.60-3.17) g/dL Microbiology - Last 24 Hours (Table) 01/09/22 04:45 Blood Culture - Preliminary Blood No Growth after 48 hours 01/09/22 04:39 Blood Culture - Preliminary Blood No Growth after 48 hours
[2022-01-11] MEDS: MELATONIN 3 MG TABLET PO SCH (20:15)
[2022-01-11] MEDS: GABAPENTIN 300 MG CAP PO SCH (20:15)
[2022-01-11] MEDS: ATORVASTATIN 10 MG TAB PO SCH (20:15)
[2022-01-11] MEDS: LATANOPROST 0.005% OPHTH DROPS 2.5 ML BTL BOTH EYES SCH (20:16)
[2022-01-11] MEDS: DEXTROSE 5% IN WATER 1,000 ML with SODIUM BICARB (1 MEQ/ML) 150 ML IV SCH (21:43)
[2022-01-11] MEDS ORDERED: QUEtiapine 25 MG TAB PO STA (22:36)
--- NOTE | 2022-01-11 22:41 | P.PN ---
Subjective Progress Note Date: 01/10/22 Principal diagnosis: Fever Patient is a 61 year old male with a past medical history is taken for renal transplant on immunosuppressive medication recently admitted to this facility for left foot wound underlying osteomyelitis and bacteremia for the patient was treated with cefepime and Flagyl subsequently presented to the hospital with new fever and increasing shortness of breath. On today's evaluation that is 01/10/2022, the patient is afebrile the patient is breathing comfortably on room air denies any chest pain or shortness of breath or cough no abdominal pain no diarrhea Objective - Vital Signs Vital signs: Vital Signs Temp 98.6 F 01/10/22 07:46 Pulse 79 01/10/22 07:46 Resp 17 01/10/22 07:46 BP 115/61 01/10/22 07:46 Pulse Ox 96 01/10/22 07:46 FiO2 Intake & Output 01/09/22 01/10/22 01/10/22 18:59 06:59 18:59 Output Total 400 Balance -400 Weight 58.967 kg Output: Urine 400 Other: Voiding Method Urinal - Exam GENERAL DESCRIPTION: A middle-age male lying in bed in no distress RESPIRATORY SYSTEM: Unlabored breathing , decreased breath sounds at bases HEART: S1 S2 regular rate and rhythm , ABDOMEN: Soft , no tenderness EXTREMITIES: Left foot wound is currently dressed no drainage on the dressing - Labs CBC & Chem 7: 01/11/22 07:00 01/11/22 07:00 Labs: Abnormal Lab Results - Last 24 Hours (Table) 01/09/22 Range/Units 11:46 Iron 12 L (65-175) ug/dL TIBC 154 L (228-460) ug/dL % Saturation 8.05 L (15.00-50.00) Transferrin 110.0 L (204.0-354.0) mg/dL Microbiology - Last 24 Hours (Table) 01/09/22 04:45 Blood Culture - Preliminary Blood No Growth after 24 hours 01/09/22 04:39 Blood Culture - Preliminary Blood No Growth after 24 hours Assessment and Plan (1) Diabetic foot ulcers Current Visit: Yes Status: Acute Code(s): E11.621 - TYPE 2 DIABETES MELLITUS WITH FOOT ULCER SNOMED Code(s): 960037932 (2) Fever Current Visit: Yes Status: Acute Code(s): R50.9 - FEVER, UNSPECIFIED SNOMED Code(s): 521575575 Plan: 1patient presented to hospital with sepsis and respiratory have fever elevated white count with a source possible left diabetic foot ulcer this patient currently being treated for osteomyelitis of the left foot with local culture positive for Klebsiella and MSSA and the patient did have MSSA bacteremia about a month ago now with new fever and white count question of PICC line infection as the patient left foot wound seems to be healing well and there was no evidence of any cellulitis or any purulent drainage clinically patient abdominal soft clinical examination chest is clear to auscultation and urine was negative. 2patient with renal insufficiency and high risk of nephrotoxicity from vancomycin. 3patient to continue with daptomycin and oral Flagyl while waiting for the culture to finalize. Time with Patient: Less than 30
--- NOTE | 2022-01-11 22:43 | P.PN ---
Subjective Progress Note Date: 01/11/22 Principal diagnosis: Fever Patient is a 61 year old male with a past medical history is taken for renal transplant on immunosuppressive medication recently admitted to this facility for left foot wound underlying osteomyelitis and bacteremia for the patient was treated with cefepime and Flagyl subsequently presented to the hospital with new fever and increasing shortness of breath. Patient has been evaluated by vascular surgery recommended no debridement and have consented the wound care, ultrasound of the transplant kidney did not show any hydronephrosis On today's evaluation that is 01/11/2022, the patient remains to be afebrile the patient is breathing comfortably on room air, the patient denies any chest pain or shortness of breath or cough no abdominal pain no diarrhea Objective - Vital Signs Vital signs: Vital Signs Temp 98.5 F 01/11/22 08:26 Pulse 89 01/11/22 08:26 Resp 17 01/11/22 08:26 BP 134/63 01/11/22 08:26 Pulse Ox 93 L 01/11/22 02:43 FiO2 Intake & Output 01/10/22 01/11/22 01/11/22 18:59 06:59 18:59 Output Total 550 625 Balance -550 -625 Output: Urine 550 625 Other: Voiding Method Urinal # Voids 2 - Exam GENERAL DESCRIPTION: A middle-age male lying in bed in no distress RESPIRATORY SYSTEM: Unlabored breathing , decreased breath sounds at bases HEART: S1 S2 regular rate and rhythm , ABDOMEN: Soft , no tenderness EXTREMITIES: Left foot wound is currently dressed no drainage on the dressing - Labs CBC & Chem 7: 01/11/22 07:00 01/11/22 07:00 Labs: Abnormal Lab Results - Last 24 Hours (Table) 01/11/22 Range/Units 07:00 WBC 12.13 H (4.50-10.00) X 10*3/uL RBC 2.96 L (4.40-5.60) X 10*6/uL Hgb 8.6 L (13.0-17.0) g/dL Hct 26.5 L (39.6-50.0) % RDW 15.9 H (11.5-14.5) % Microbiology - Last 24 Hours (Table) 01/09/22 04:45 Blood Culture - Preliminary Blood No Growth after 48 hours 01/09/22 04:39 Blood Culture - Preliminary Blood No Growth after 48 hours Assessment and Plan (1) Diabetic foot ulcers Current Visit: Yes Status: Acute Code(s): E11.621 - TYPE 2 DIABETES MELLITUS WITH FOOT ULCER SNOMED Code(s): 233631384 (2) Fever Current Visit: Yes Status: Acute Code(s): R50.9 - FEVER, UNSPECIFIED SNOMED Code(s): 754337684 Plan: 1patient presented to hospital with sepsis and respiratory have fever elevated white count with a source possible left diabetic foot ulcer this patient currently being treated for osteomyelitis of the left foot with local culture positive for Klebsiella and MSSA and the patient did have MSSA bacteremia about a month ago now with new fever and white count question of PICC line infection as the patient left foot wound seems to be healing well and there was no evidence of any cellulitis or any purulent drainage clinically patient abdominal soft clinical examination chest is clear to auscultation and urine was negative. 2patient with renal insufficiency and high risk of nephrotoxicity from vancomycin. 3patient fever has resolved and culture has been negative so far. Will continue with daptomycin and oral Flagyl and monitor clinical course closely Time with Patient: Less than 30
[2022-01-12] MEDS: HEPARIN SODIUM,PORCINE/PF 5,000 UNIT/0.5 ML SYRINGE SQ SCH ×2 (08:00→16:07)
[2022-01-12] MEDS: NON FORMULARY DRUG (Brimonidine Tartrate/Timolol [Combigan 0.2%-0.5% Eye Drops] 5 ML Ml) BOTH EYES SCH ×2 (08:01→20:17)
[2022-01-12] MEDS: DEXTROSE 5% IN WATER 1,000 ML with SODIUM BICARB (1 MEQ/ML) 150 ML IV SCH (08:43)
[2022-01-12] MEDS: carvediloL 6.25 MG TAB PO SCH ×2 (08:44→20:16)
[2022-01-12] MEDS: SODIUM FERRIC GLUCONAT-SUCROSE 125 MG in SODIUM CHLORIDE 0.9% 100 ML IVPB SCH (08:44)
[2022-01-12] MEDS: predniSONE 5 MG TAB PO SCH (08:44)
[2022-01-12] MEDS: TACROLIMUS 1 MG CAP PO SCH ×2 (08:44→20:17)
[2022-01-12] MEDS: MULTIVITAMINS, THERA 1 EACH TAB PO SCH (08:44)
[2022-01-12] MEDS: metroNIDAZOLE 500 MG TAB PO SCH ×3 (08:44→20:18)
[2022-01-12] MEDS: ASPIRIN 81 MG PO SCH (08:45)
[2022-01-12] MEDS: DORZOLAMIDE HCL 2% DROPS 10 ML BTL LEFT EYE SCH ×2 (08:46→20:16)
[2022-01-12 09:12] LABS: HCT 26.3 % (39.6-50.0); HGB 8.5 g/dL (13.0-17.0); MCH 28.9 pg (27.0-32.0); MCHC 32.3 g/dL (32.0-37.0); MCV 89.5 fL (80.0-97.0); Mean Platelet Volume 9.9 fL (9.5-12.2); NRBC Per 100 WBC 0 /100 WBCS (0.0-0.0); Platelet Count 389 X 10*3/uL (140-440); RBC 2.94 X 10*6/uL (4.40-5.60); RDW 16.2 % (11.5-14.5)
[2022-01-12 10:11] LABS: Erythrocyte Sedimentation Rate 96 mm/Hr (0-20)
--- NOTE | 2022-01-12 10:37 | P.PN ---
Subjective Patient is seen in follow-up for acute kidney injury and renal transplant management. Renal function worsened yesterday with creatinine at 2.7. Morning labs pending. Prograf resumed. No difficulty with urination. No vomiting or diarrhea. Oral intake is fair. Hemodynamically stable. Currently on bicarb drip. Vital signs are stable. General: Awake. No acute distress. HEENT: Head exam is unremarkable. LUNGS: Breath sounds decreased. HEART: Rate and Rhythm are regular. ABDOMEN: Soft, no distention. EXTREMITITES: No edema. No drainage. Objective - Vital Signs Vital signs: Vital Signs Temp 98.1 F 01/12/22 06:36 Pulse 79 01/12/22 06:36 Resp 17 01/12/22 06:36 BP 118/58 01/12/22 06:36 Pulse Ox 94 L 01/12/22 02:04 FiO2 Intake & Output 01/11/22 01/12/22 01/12/22 18:59 06:59 18:59 Intake Total 240 Output Total 400 Balance -400 240 Intake: Oral 240 Output: Urine 400 Other: Voiding Method Urinal - Labs CBC & Chem 7: 01/12/22 05:19 01/11/22 07:00 Labs: Abnormal Lab Results - Last 24 Hours (Table) 01/09/22 01/11/22 01/11/22 Range/Units 11:46 07:00 07:00 WBC 12.13 H (4.50-10.00) X 10*3/uL RBC 2.96 L (4.40-5.60) X 10*6/uL Hgb 8.6 L (13.0-17.0) g/dL Hct 26.5 L (39.6-50.0) % RDW 15.9 H (11.5-14.5) % ESR (0-20) mm/Hr Chloride 110 H (96-109) mmol/L Carbon Dioxide 15.5 L (20.0-27.5) mmol/L BUN 38.5 H (9.0-27.0) mg/dL Creatinine 2.7 H (0.6-1.5) mg/dL Est GFR (CKD-EPI)AfAm 28.6 L (60.0-200.0) Est GFR (CKD-EPI)NonAf 24.7 L (60.0-200.0) Calcium 8.3 L (8.7-10.3) mg/dL Total Bilirubin <0.15 L (0.30-1.20) mg/dL Total Protein 5.9 L (6.2-8.2) g/dL Albumin 2.6 L (3.8-4.9) g/dL Albumin/Globulin Ratio 0.79 L (1.60-3.17) g/dL Tacrolimus 4.6 L (5.0-20.0) ng/mL 01/12/22 Range/Units 05:19 WBC (4.50-10.00) X 10*3/uL RBC 2.94 L (4.40-5.60) X 10*6/uL Hgb 8.5 L (13.0-17.0) g/dL Hct 26.3 L (39.6-50.0) % RDW 16.2 H (11.5-14.5) % ESR 96 H (0-20) mm/Hr Chloride (96-109) mmol/L Carbon Dioxide (20.0-27.5) mmol/L BUN (9.0-27.0) mg/dL Creatinine (0.6-1.5) mg/dL Est GFR (CKD-EPI)AfAm (60.0-200.0) Est GFR (CKD-EPI)NonAf (60.0-200.0) Calcium (8.7-10.3) mg/dL Total Bilirubin (0.30-1.20) mg/dL Total Protein (6.2-8.2) g/dL Albumin (3.8-4.9) g/dL Albumin/Globulin Ratio (1.60-3.17) g/dL Tacrolimus (5.0-20.0) ng/mL Microbiology - Last 24 Hours (Table) 01/09/22 04:45 Blood Culture - Preliminary Blood No Growth after 72 hours 01/09/22 04:39 Blood Culture - Preliminary Blood No Growth after 72 hours Assessment and Plan Plan: Assessment: 1. Acute allograft dysfunction secondary to ATN secondary to severe sepsis. Creatinine 2.33 on admission -2.7 yesterday. Baseline creatinine near 1 from A ugust 2021. No hydronephrosis noted on ultrasound. 2. Status post simultaneous kidney pancreas transplant from 1997 done at [facility]. 3. Left diabetic foot ulcer/osteomyelitis on antibiotics. ID following. Also been followed by wound care. 4. Metabolic acidosis secondary to acute kidney injury. On bicarb drip. 5. Anemia of chronic kidney disease. Iron deficiency noted. 6. Hypertension with chronic disease. Controlled. 7. Hypomagnesemia from poor intake and CNI induced magnesium losses. Replaced. Improved. Plan: Maintain bicarb drip. Prograf resumed 01/12/2022. Hold nifedipine for systolic blood pressure less than 120. Continue to hold Vasotec for now. Maintain IV iron. Avoid nephrotoxins. Continue to monitor renal function and urine output. Morning labs pending. Case discussed with primary team. Patient will need to be transferred to transplant center if GFR continues to worsen.
[2022-01-12 10:52] LABS: ALT 14 U/L (10-49); AST 19 U/L (14-35); African American GFR (CKD) 24.2 (60.0-200.0); Albumin 2.8 g/dL (3.8-4.9); Albumin/Globulin Ratio 0.88 (1.60-3.17); Alkaline Phosphatase 74 U/L (41-126); BUN/Creat Ratio 11.77 Ratio (12.00-20.00); Blood Urea Nitrogen 36.5 mg/dL (9.0-27.0); Calcium 8.2 mg/dL (8.7-10.3); Carbon Dioxide 21.5 mmol/L (20.0-27.5); Chloride 108 mmol/L (96-109); Globulin 3.2 g/dL (1.6-3.3); Glucose 98 mg/dL (70-110); Magnesium 1.9 mg/dL (1.5-2.4); Non-African American GFR(CKD) 20.9 (60.0-200.0); Potassium 3.6 mmol/L (3.5-5.5); Sodium 141 mmol/L (135-145); Total Bilirubin <0.15 mg/dL (0.30-1.20)
--- NOTE | 2022-01-12 16:23 | P.DS ---
Providers Date of admission: 01/09/22 04:34 Expected date of discharge: 01/12/22 Attending physician: Abraham Nino MD Consults: 01/09/22 04:34 Consult Physician Routine Consulting Provider: Carlos Sow Consult Reason/Comments: osteo Do you want consulting provider notified?: Yes 01/09/22 08:50 Consult Physician Urgent Consulting Provider: Flaquito Shane Consult Reason/Comments: ANA w/ hx of renal and pancrease transplant Do you want consulting provider notified?: Yes Primary care physician: Devon Brand MD Hospital Course: Discharge Diagnosis: Sepsis secondary to Osteomyelitis of left foot resulting from nonhealing/infected diabetic ulcer left foot plantar region Recent treatment of staph aureus bacteremia Acute kidney injury, status post renal transplant Hypomagnesemia, resolved Iron deficiency anemia Peripheral vascular disease Neuropathy Plan of care: - Continue with dapto and flagyl, sodium bicarb infusion, avoid additional nephrotoxic agents, nephrology and ID recs, plan for transfer to [facility] when bed available. Hospital Course: Patient is a 61-year-old male who is status post renal and pancreatic transplant in 1997 from [facility] for diabetes and ESRD, neuropathy, peripheral vascular disease, skin cancer and recent diagnosis and treatment of staph aureus bacteremia and osteomyelitis of left foot. Patient recently hospitalized for staph aureus bacteremia and osteomyelitis of left foot from 12/07/21 through 12/15/21. Patient was discharged to custodial facility for 5 more weeks of IV antibiotics with cefepime and flagyl. [facility] care facility sent patient back to the ED on 01/09/22 secondary to fever and reports of increased pain to left foot. He was found to be febrile with a temp of 101, WBC count of 13.6, and an acute kidney injury with BUN of 39, creatinine 2.33, and GFR of 30 with baseline creatinine of 0.9. Urinalysis negative for infection. Patient started on IV antibiotics vancomycin and admitted with infectious disease and nephrology consults. Renal ultrasound revealing renal transplant noted with multiple cysts the largest measuring 6.4 cm, no hydronephrosis or nephrolithiasis. Repeat x-ray left foot revealing a new erosion of the lateral aspect of the cuboidal bone consistent with osteomyelitis measuring 10 mm. Vascular surgery consulted no plans for surgery at this time. Due to worsening renal fuction he was transitioned from vanco to dapto. He developed an acidosis and nephrology started him on Bicarb gtt, his tacrolimus level came back low at 4.6. He was resumed on Tacro. His renal fucntion continued to worsen and nephrology recommended transfer to a [facility] transplant center on 01/12. He was accepted at [facility] by Dr. Valentin on 01/12 and patient is currently awaiting bed. Patient seen and examined at bedside. Denies any pain, SOB, nuasea, vomiting, diarrhea. Vital signs reviewed and stable. General: nontoxic, no distress, appears at stated age Derm: warm, dry, dressing in place over the left foot Head: atraumatic, normocephalic, symmetric Eyes: EOMI, no lid lag, anicteric sclera Mouth: no lip lesion, mucus membranes moist Cardiovascular: S1S2 reg, no murmur, positive posterior tibial pulse bilateral, Lungs: Decrease bs bilateral, no rhonchi, no rales , no accessory muscle use Abdominal: soft, nontender to palpation, no guarding, no appreciable organomegaly Ext: no gross muscle atrophy, trace edema, no contractures Neuro: CN II-XI grossly intact, no focal neuro deficits Psych: Alert, oriented, appropriate affect A total of 62 minutes was spent on the discharge of this complex patient. Patient Condition at Discharge: Fair Plan - Discharge Summary New Discharge Prescriptions: No Action predniSONE 5 mg PO DAILY Lovastatin [Mevacor] 20 mg PO HS mycophenolate mofetiL [Cellcept] 500 mg PO BID Enalapril [Vasotec] 20 mg PO HS Aspirin 81 mg PO DAILY Multivitamin [Men's Multi-Vitamin] 1 tab PO DAILY Tacrolimus [Prograf] 1 mg PO BID Dorzolamide 2% [Trusopt 2%] 1 drop LEFT EYE BID Cholecalciferol [Vitamin D3 (25 Mcg = 1000 Iu)] 25 mcg PO DAILY Folic Acid 1 mg PO DAILY carvediloL [Coreg] 6.25 mg PO BID Sodium Polystyrene Sulfonate [Kayexalate] 15 gm PO Q14D Brimonidine Tartrate/Timolol [Combigan 0.2%-0.5% Eye Drops] 1 drop BOTH EYES BID Cefepime [Maxipime] 2 gm IVPB Q8HR 35 Days #105 each Heparin Lock Flush Solution 10 Units/Ml 30 units IV Q8H Calcium Carbonate [Tums] 500 mg PO TID PRN PRN Reason: Heartburn NIFEdipine XL [Procardia XL] 60 mg PO BID Gabapentin 300 mg PO HS #30 cap Acetaminophen [Tylenol 8 Hour] 650 mg PO Q6H PRN PRN Reason: Pain Latanoprost/Pf [Latanoprost 0.005% Eye Drop] 1 drop BOTH EYES HS Melatonin 3 mg PO HS Discharge Medication List Aspirin 81 mg PO DAILY 09/27/13 [History] Enalapril [Vasotec] 20 mg PO HS 09/27/13 [History] Lovastatin [Mevacor] 20 mg PO HS 09/27/13 [History] Multivitamin [Men's Multi-Vitamin] 1 tab PO DAILY 09/27/13 [History] mycophenolate mofetiL [Cellcept] 500 mg PO BID 09/27/13 [History] predniSONE 5 mg PO DAILY 09/27/13 [History] Tacrolimus [Prograf] 1 mg PO BID 01/03/14 [History] Cholecalciferol [Vitamin D3 (25 Mcg = 1000 Iu)] 25 mcg PO DAILY 12/02/14 [History] Dorzolamide 2% [Trusopt 2%] 1 drop LEFT EYE BID 12/02/14 [History] Folic Acid 1 mg PO DAILY 10/20/17 [History] Sodium Polystyrene Sulfonate [Kayexalate] 15 gm PO Q14D 02/15/18 [History] carvediloL [Coreg] 6.25 mg PO BID 02/15/18 [History] Brimonidine Tartrate/Timolol [Combigan 0.2%-0.5% Eye Drops] 1 drop BOTH EYES BID 11/25/21 [History] Calcium Carbonate [Tums] 500 mg PO TID PRN 11/25/21 [History] NIFEdipine XL [Procardia XL] 60 mg PO BID 11/25/21 [History] Cefepime [Maxipime] 2 gm IVPB Q8HR 35 Days #105 each 12/15/21 [Rx] Gabapentin 300 mg PO HS #30 cap 12/16/21 [Rx] Acetaminophen [Tylenol 8 Hour] 650 mg PO Q6H PRN 01/09/22 [History] Heparin Lock Flush Solution 10 Units/Ml 30 units IV Q8H 01/09/22 [History] Latanoprost/Pf [Latanoprost 0.005% Eye Drop] 1 drop BOTH EYES HS 01/09/22 [History] Melatonin 3 mg PO HS 01/09/22 [History] Follow up Appointment(s)/Referral(s): Devon Brand MD [Primary Care Provider] - [facility] [facility] [NON-STAFF] - 1 Week
[2022-01-12] MEDS: GABAPENTIN 300 MG CAP PO SCH (20:15)
[2022-01-12] MEDS: ATORVASTATIN 10 MG TAB PO SCH (20:16)
[2022-01-12] MEDS: MELATONIN 3 MG TABLET PO SCH (20:16)
[2022-01-12] MEDS: LATANOPROST 0.005% OPHTH DROPS 2.5 ML BTL BOTH EYES SCH (20:16)
[2022-01-12] MEDS: QUEtiapine 25 MG TAB PO SCH (20:21)
[2022-01-13] MEDS: DEXTROSE 5% IN WATER 1,000 ML with SODIUM BICARB (1 MEQ/ML) 150 ML IV SCH (01:44)
[2022-01-13] MEDS: HEPARIN SODIUM,PORCINE/PF 5,000 UNIT/0.5 ML SYRINGE SQ SCH ×5 (01:48→23:44)
[2022-01-13 06:55] LABS: Anisocytosis Slight; HCT 26.1 % (39.0-53.0); HGB 8.4 gm/dL (13.0-17.5); Hypochromasia Slight; MCH 29.6 pg (25.0-35.0); MCHC 32.2 g/dL (31.0-37.0); MCV 91.7 fL (80.0-100.0); Mean Platelet Volume 7.5; Platelet Count 390 k/uL (150-450); RBC 2.85 m/uL (4.30-5.90); RDW 16.4 % (11.5-15.5); WBC 10.2 k/uL (3.8-10.6)
[2022-01-13 07:03] LABS: African American GFR (CKD) 25 (>60 ml/min/1.73 sqM); Anion Gap 8 mmol/L; Blood Urea Nitrogen 37 mg/dL (9-20); Calcium 7.6 mg/dL (8.4-10.2); Carbon Dioxide 28 mmol/L (22-30); Chloride 104 mmol/L (98-107); Glucose 98 mg/dL (74-99); Magnesium 1.7 mg/dL (1.6-2.3); Non-African American GFR(CKD) 21 (>60 ml/min/1.73 sqM); Potassium 3.2 mmol/L (3.5-5.1); Sodium 140 mmol/L (137-145)
[2022-01-13] MEDS: NON FORMULARY DRUG (Brimonidine Tartrate/Timolol [Combigan 0.2%-0.5% Eye Drops] 5 ML Ml) BOTH EYES SCH ×2 (07:10→22:06)
[2022-01-13] MEDS ORDERED: POTASSIUM CHLORIDE ER 20 MEQ TAB.ER PO STA ×2 (07:41→08:03)
[2022-01-13] MEDS: predniSONE 5 MG TAB PO SCH ×2 (09:59→10:03)
[2022-01-13] MEDS: SODIUM FERRIC GLUCONAT-SUCROSE 125 MG in SODIUM CHLORIDE 0.9% 100 ML IVPB SCH (09:59)
[2022-01-13] MEDS: metroNIDAZOLE 500 MG TAB PO SCH ×3 (10:03→22:04)
[2022-01-13] MEDS: carvediloL 6.25 MG TAB PO SCH ×2 (10:03→22:04)
[2022-01-13] MEDS: ASPIRIN 81 MG PO SCH (10:03)
[2022-01-13] MEDS: MULTIVITAMINS, THERA 1 EACH TAB PO SCH (10:03)
[2022-01-13] MEDS: TACROLIMUS 1 MG CAP PO SCH ×2 (10:03→22:09)
[2022-01-13] MEDS: DORZOLAMIDE HCL 2% DROPS 10 ML BTL LEFT EYE SCH ×2 (10:09→22:06)
--- NOTE | 2022-01-13 10:59 | P.PN ---
Subjective Patient is seen in follow-up for acute kidney injury and renal transplant management. Renal function worsened yesterday with creatinine at 3.1 and is stable at 3.04 today. No difficulty with urination. No vomiting or diarrhea. Oral intake is fair. Hemodynamically stable. Currently on bicarb drip. Acidosis improved. Vital signs are stable. General: Awake. No acute distress. HEENT: Head exam is unremarkable. LUNGS: Breath sounds decreased. HEART: Rate and Rhythm are regular. ABDOMEN: Soft, no distention. EXTREMITITES: No edema. No drainage. Objective - Vital Signs Vital signs: Vital Signs Temp 98.1 F 01/13/22 07:47 Pulse 85 01/13/22 10:31 Resp 16 01/13/22 07:47 BP 107/63 01/13/22 07:47 Pulse Ox 97 01/13/22 02:00 FiO2 Intake & Output 01/12/22 01/13/22 01/13/22 18:59 06:59 18:59 Intake Total 1360 980 Output Total 800 Balance 560 980 Intake: Intake, IV Titration 640 740 Amount Dextrose 5% in Water 1, 640 640 000 ml @ 80 mls/hr IV . [id number] MARYLIN with Sodium Bicarb (1 Meq/ml) 150 ml Rx#:[id number] Sodium Ferric Gluconat- 100 Sucrose 125 mg In Sodium Chloride 0.9% 100 ml @ 100 mls/hr IVPB DAILY MARYLIN Rx#:[id number] Oral 720 240 Output: Urine 800 Other: Voiding Method Urinal Toilet Urinal Urinal # Voids 2 # Bowel Movements 1 - Labs CBC & Chem 7: 01/13/22 06:04 01/13/22 06:04 Labs: Abnormal Lab Results - Last 24 Hours (Table) 01/13/22 01/13/22 Range/Units 06:04 06:04 RBC 2.85 L (4.30-5.90) m/uL Hgb 8.4 L (13.0-17.5) gm/dL Hct 26.1 L (39.0-53.0) % RDW 16.4 H (11.5-15.5) % Potassium 3.2 L (3.5-5.1) mmol/L BUN 37 H (9-20) mg/dL Creatinine 3.04 H (0.66-1.25) mg/dL Calcium 7.6 L (8.4-10.2) mg/dL Microbiology - Last 24 Hours (Table) 01/09/22 04:45 Blood Culture - Preliminary Blood No Growth after 96 hours 01/09/22 04:39 Blood Culture - Preliminary Blood No Growth after 96 hours Assessment and Plan Plan: Assessment: 1. Acute allograft dysfunction secondary to ATN secondary to severe sepsis. Creatinine 2.33 on admission - peaked at 3.1 yesterday to 3.04 today. Baseline creatinine near 1 from November 2021. No hydronephrosis noted on ultrasound. 2. Status post simultaneous kidney pancreas transplant from 1997 done at [facility] [place]. 3. Left diabetic foot ulcer/osteomyelitis on antibiotics. ID following. Also been followed by wound care. 4. Metabolic acidosis secondary to acute kidney injury. On bicarb drip. Improved. 5. Anemia of chronic kidney disease. Iron deficiency noted. 6. Hypertension with chronic disease. Controlled. 7. Hypomagnesemia from poor intake and CNI induced magnesium losses. Replaced. 8. Hypokalemia from poor intake. Plan: Stop bicarb drip. Add LR at 75 mL an hour. Potassium replaced. Add oral magnesium oxide. Prograf resumed 01/12/2022. Hold nifedipine for systolic blood pressure less than 120. Continue to hold Vasotec for now. Maintain IV iron. Add Aranesp. Avoid nephrotoxins. Continue to monitor renal function and urine output. Case discussed with primary team. Awaits transfer to [facility].
[2022-01-13] MEDS: LACTATED RINGERS 1,000 ML IV SCH (11:12)
[2022-01-13] MEDS ORDERED: DARBEPOETIN ALFA 40 MCG/0.4 ML SYRINGE SQ SCH (12:00)
[2022-01-13] MEDS: DAPTOmycin 350 MG in SODIUM CHLORIDE 0.9% 50 ML IVPB SCH (15:54)
--- NOTE | 2022-01-13 15:54 | P.PN ---
Subjective Progress Note Date: 01/13/22 (delayed charting seen at approx 11am) Patient is a 61-year-old male who is status post renal and pancreatic transplant in 1997 from [facility] for diabetes and ESRD, neuropathy, peripheral vascular disease, skin cancer and recent diagnosis and treatment of staph aureus bacteremia and osteomyelitis of left foot. Patient recently hospitalized for staph aureus bacteremia and osteomyelitis of left foot from 12/07/21 through 12/15/21. Patient was discharged to half-way facility for 5 more weeks of IV antibiotics with cefepime and flagyl. Extended care facility sent patient back to the ED on 01/09/22 secondary to fever and reports of increased pain to left foot. He was found to be febrile with a temp of 101, WBC count of 13.6, and an acute kidney injury with BUN of 39, creatinine 2.33, and GFR of 30 with baseline creatinine of 0.9. Urinalysis negative for infection. Patient started on IV antibiotics vancomycin and admitted with infectious disease and nephrology consults. Renal ultrasound revealing renal transplant noted with multiple cysts the largest measuring 6.4 cm, no hydronephrosis or nephrolithiasis. Repeat x-ray left foot revealing a new erosion of the lateral aspect of the cuboidal bone consistent with osteomyelitis measuring 10 mm. Vascular surgery consulted no plans for surgery at this time. Due to worsening renal function he was transitioned from vanco to dapto. He developed an acidosis and nephrology started him on Bicarb gtt, his tacrolimus level came back low at 4.6. He was resumed on Tacro. His renal function continued to worsen and nephrology recommended transfer to a renal transplant center on 01/12. He was accepted at [facility] by Dr. Valentin on 01/12 and patient is currently awaiting bed. Awaiting call back from [facility] for possible transfer. Patient seen and examined at bedside. He denies any chest pain, shortness breath, nausea, vomiting, diarrhea. He is feeling anxious regarding his renal function and potential transfer. General: nontoxic, no distress, appears at stated age Derm: warm, dry, dressing in place over the left foot Head: atraumatic, normocephalic, symmetric Eyes: EOMI, no lid lag, anicteric sclera Mouth: no lip lesion, mucus membranes moist Cardiovascular: S1S2 reg, no murmur, positive posterior tibial pulse bilateral, Lungs: Decrease bs bilateral, no rhonchi, no rales , no accessory muscle use Abdominal: soft, nontender to palpation, no guarding, no appreciable organomegaly Ext: no gross muscle atrophy, trace edema, no contractures Neuro: CN II-XI grossly intact, no focal neuro deficits Psych: Alert, oriented, appropriate affect Assessment: Sepsis secondary to Osteomyelitis of left foot resulting from nonhealing/infected diabetic ulcer left foot plantar region Acute kidney injury, status post renal transplant Hypokalemia Recent treatment of staph aureus bacteremia Hypomagnesemia, resolved Iron deficiency anemia Peripheral vascular disease Neuropathy Plan: off bicarb gtt per nephrology Monitor renal function replace potassium IV iron Hold ARB Continue with Dapto and Flagyl Active Medications Generic Name Dose Route Start Last Admin Trade Name Freq PRN Reason Stop Dose Admin Acetaminophen 650 mg 01/09/22 13:59 Acetaminophen Tab 325 Mg Tab PO Q6H PRN Pain Aspirin 81 mg 01/10/22 09:00 01/13/22 10:03 Aspirin 81 Mg PO 81 mg DAILY MARYLIN Administration Atorvastatin Calcium 10 mg 01/09/22 21:00 01/12/22 20:16 Atorvastatin 10 Mg Tab PO 10 mg HS MARYLIN Administration Calcium Carbonate/Glycine 500 mg 01/09/22 13:59 Calcium Carbonate 500 Mg Chewable PO TID PRN Heartburn Carvedilol 6.25 mg 01/09/22 21:00 01/13/22 10:03 Carvedilol 6.25 Mg Tab PO 6.25 mg BID MARYLIN Administration Darbepoetin Eitan 40 mcg 01/13/22 12:00 01/13/22 12:27 Darbepoetin Eitan 40 Mcg/0.4 Ml Syringe SQ 40 mcg Q7D MARYLIN Administration Dorzolamide HCl 1 drops 01/09/22 21:00 01/13/22 10:09 Dorzolamide Hcl 2% Drops 10 Ml Btl LEFT EYE 1 drops BID MARYLIN Administration Gabapentin 300 mg 01/09/22 21:00 01/12/22 20:15 Gabapentin 300 Mg Cap PO 300 mg HS MARYLIN Administration Heparin Sodium (Porcine) 5,000 unit 01/09/22 16:15 01/13/22 09:05 Heparin Sodium,Porcine/Pf 5,000 Unit/0.5 Ml Syringe SQ 5,000 unit Q8HR MARYLIN Administration Daptomycin 350 mg/ Sodium 50 mls @ 100 mls/hr 01/09/22 15:15 01/11/22 15:25 Chloride IVPB 100 mls/hr Q48H MARYLIN Administration Protocol Lactated Ringer's 1,000 mls @ 75 mls/hr 01/13/22 11:00 01/13/22 11:12 Lactated Ringers IV 75 mls/hr .[id number] MARYLIN Administration Latanoprost 1 drops 01/09/22 21:00 01/12/22 20:16 Latanoprost 0.005% Ophth Drops 2.5 Ml Btl BOTH EYES 1 drops HS MARYLIN Administration Melatonin 3 mg 01/09/22 21:00 01/12/22 20:16 Melatonin 3 Mg Tablet PO 3 mg HS MARYLIN Administration Metronidazole 500 mg 01/09/22 16:00 01/13/22 10:03 Metronidazole 500 Mg Tab PO 500 mg TID MARYLIN Administration Protocol Morphine Sulfate 4 mg 01/09/22 04:34 Morphine Sulfate 4 Mg/Ml Syringe IV Q4HR PRN Severe Pain (Scale 7 to 10) Multivitamins 1 each 01/09/22 14:15 01/13/22 10:03 Multivitamins, Thera 1 Each Tab PO 1 each DAILY MARYLIN Administration Mycophenolate Mofetil 500 mg 01/09/22 21:00 01/13/22 10:03 Mycophenolate Mofetil 500 Mg Tab PO 500 mg BID MARYLIN Administration Naloxone HCl 0.2 mg 01/09/22 04:34 Naloxone 0.4 Mg/Ml 1 Ml Vial IV Q2M PRN Opioid Reversal Nifedipine 60 mg 01/09/22 14:15 01/13/22 09:51 Nifedipine Xl 60 Mg Tab.Er.24 PO Not Given BID MARYLIN Non-Formulary Medication 1 drop 01/09/22 21:00 01/13/22 07:10 Brimonidine Tartrate/Timolol [Combigan 0.2%-0.5% Eye Drops] BOTH EYES Not Given BID MARYLIN Prednisone 5 mg 01/09/22 14:15 01/13/22 10:03 Prednisone 5 Mg Tab PO 5 mg DAILY MARYLIN Administration Quetiapine Fumarate 12.5 mg 01/12/22 21:00 01/12/22 20:21 Quetiapine 25 Mg Tab PO 12.5 mg HS MARYLIN Administration Tacrolimus 1 mg 01/12/22 09:00 01/13/22 10:03 Tacrolimus 1 Mg Cap PO 1 mg BID MARYLIN Administration Objective - Vital Signs Vital signs: Vital Signs Temp 98.2 F 01/13/22 13:37 Pulse 83 01/13/22 13:38 Resp 17 01/13/22 13:37 BP 116/68 01/13/22 13:37 Pulse Ox 96 01/13/22 13:37 FiO2 Intake & Output 01/12/22 01/13/22 01/13/22 18:59 06:59 18:59 Intake Total 1360 1100 Output Total 800 Balance 560 1100 Intake: Intake, IV Titration 640 740 Amount Dextrose 5% in Water 1, 640 640 000 ml @ 80 mls/hr IV . [id number] MARYLIN with Sodium Bicarb (1 Meq/ml) 150 ml Rx#:[id number] Sodium Ferric Gluconat- 100 Sucrose 125 mg In Sodium Chloride 0.9% 100 ml @ 100 mls/hr IVPB DAILY MARYLIN Rx#:[id number] Oral 720 360 Output: Urine 800 Other: Voiding Method Urinal Toilet Urinal Urinal # Voids 2 # Bowel Movements 1 - Labs CBC & Chem 7: 01/13/22 06:04 01/13/22 06:04 Labs: Abnormal Lab Results - Last 24 Hours (Table) 01/13/22 01/13/22 Range/Units 06:04 06:04 RBC 2.85 L (4.30-5.90) m/uL Hgb 8.4 L (13.0-17.5) gm/dL Hct 26.1 L (39.0-53.0) % RDW 16.4 H (11.5-15.5) % Potassium 3.2 L (3.5-5.1) mmol/L BUN 37 H (9-20) mg/dL Creatinine 3.04 H (0.66-1.25) mg/dL Calcium 7.6 L (8.4-10.2) mg/dL Microbiology - Last 24 Hours (Table) 01/09/22 04:45 Blood Culture - Preliminary Blood No Growth after 96 hours 01/09/22 04:39 Blood Culture - Preliminary Blood No Growth after 96 hours
[2022-01-13] MEDS: GABAPENTIN 300 MG CAP PO SCH (22:04)
[2022-01-13] MEDS: MELATONIN 3 MG TABLET PO SCH (22:04)
[2022-01-13] MEDS: QUEtiapine 25 MG TAB PO SCH (22:04)
[2022-01-13] MEDS: ATORVASTATIN 10 MG TAB PO SCH (22:04)
[2022-01-13] MEDS: LATANOPROST 0.005% OPHTH DROPS 2.5 ML BTL BOTH EYES SCH (22:06)
--- NOTE | 2022-01-13 22:56 | P.PN ---
Subjective Progress Note Date: 01/12/22 Principal diagnosis: Fever Patient is a 61 year old male with a past medical history is taken for renal transplant on immunosuppressive medication recently admitted to this facility for left foot wound underlying osteomyelitis and bacteremia for the patient was treated with cefepime and Flagyl subsequently presented to the hospital with new fever and increasing shortness of breath. Patient has been evaluated by vascular surgery recommended no debridement and have consented the wound care, ultrasound of the transplant kidney did not show any hydronephrosis On today's evaluation that is 01/12/2022, the patient continues to be afebrile the patient is breathing comfortably on room air, the patient denies any chest pain or shortness of breath or cough no abdominal pain no diarrhea, denies pain to the left foot Objective - Vital Signs Vital signs: Vital Signs Temp 98.1 F 01/12/22 06:36 Pulse 97 01/12/22 10:48 Resp 17 01/12/22 10:48 BP 118/58 01/12/22 06:36 Pulse Ox 97 01/12/22 06:36 FiO2 Intake & Output 01/11/22 01/12/22 01/12/22 18:59 06:59 18:59 Intake Total 240 Output Total 400 Balance -400 240 Intake: Oral 240 Output: Urine 400 Other: Voiding Method Urinal Urinal - Exam GENERAL DESCRIPTION: A middle-age male lying in bed in no distress RESPIRATORY SYSTEM: Unlabored breathing , decreased breath sounds at bases HEART: S1 S2 regular rate and rhythm , ABDOMEN: Soft , no tenderness EXTREMITIES: Left foot wound is currently dressed no drainage on the dressing - Labs CBC & Chem 7: 01/13/22 06:04 01/13/22 06:04 Labs: Abnormal Lab Results - Last 24 Hours (Table) 01/09/22 01/11/22 01/12/22 Range/Units 11:46 07:00 05:19 RBC (4.40-5.60) X 10*6/uL Hgb (13.0-17.0) g/dL Hct (39.6-50.0) % RDW (11.5-14.5) % ESR (0-20) mm/Hr Chloride 110 H (96-109) mmol/L Carbon Dioxide 15.5 L (20.0-27.5) mmol/L BUN 38.5 H 36.5 H (9.0-27.0) mg/dL Creatinine 2.7 H 3.1 H (0.6-1.5) mg/dL Est GFR (CKD-EPI)AfAm 28.6 L 24.2 L (60.0-200.0) Est GFR (CKD-EPI)NonAf 24.7 L 20.9 L (60.0-200.0) BUN/Creatinine Ratio 11.77 L (12.00-20.00) Ratio Calcium 8.3 L 8.2 L (8.7-10.3) mg/dL Total Bilirubin <0.15 L <0.15 L (0.30-1.20) mg/dL C-Reactive Protein 7.90 H (0.00-0.80) mg/dL Total Protein 5.9 L 6.0 L (6.2-8.2) g/dL Albumin 2.6 L 2.8 L (3.8-4.9) g/dL Albumin/Globulin Ratio 0.79 L 0.88 L (1.60-3.17) g/dL Procalcitonin (0.02-0.09) ng/mL Tacrolimus 4.6 L (5.0-20.0) ng/mL 01/12/22 01/12/22 Range/Units 05:19 05:19 RBC 2.94 L (4.40-5.60) X 10*6/uL Hgb 8.5 L (13.0-17.0) g/dL Hct 26.3 L (39.6-50.0) % RDW 16.2 H (11.5-14.5) % ESR 96 H (0-20) mm/Hr Chloride (96-109) mmol/L Carbon Dioxide (20.0-27.5) mmol/L BUN (9.0-27.0) mg/dL Creatinine (0.6-1.5) mg/dL Est GFR (CKD-EPI)AfAm (60.0-200.0) Est GFR (CKD-EPI)NonAf (60.0-200.0) BUN/Creatinine Ratio (12.00-20.00) Ratio Calcium (8.7-10.3) mg/dL Total Bilirubin (0.30-1.20) mg/dL C-Reactive Protein (0.00-0.80) mg/dL Total Protein (6.2-8.2) g/dL Albumin (3.8-4.9) g/dL Albumin/Globulin Ratio (1.60-3.17) g/dL Procalcitonin 0.45 H (0.02-0.09) ng/mL Tacrolimus (5.0-20.0) ng/mL Microbiology - Last 24 Hours (Table) 01/09/22 04:45 Blood Culture - Preliminary Blood No Growth after 72 hours 01/09/22 04:39 Blood Culture - Preliminary Blood No Growth after 72 hours Assessment and Plan (1) Diabetic foot ulcers Current Visit: Yes Status: Acute Code(s): E11.621 - TYPE 2 DIABETES MELLITUS WITH FOOT ULCER SNOMED Code(s): 486022478 (2) Fever Current Visit: Yes Status: Acute Code(s): R50.9 - FEVER, UNSPECIFIED SNOMED Code(s): 636009058 Plan: 1patient presented to hospital with sepsis and respiratory have fever elevated white count with a source possible left diabetic foot ulcer this patient currently being treated for osteomyelitis of the left foot with local culture positive for Klebsiella and MSSA and the patient did have MSSA bacteremia about a month ago now with new fever and white count question of PICC line infection as the patient left foot wound seems to be healing well and there was no evidence of any cellulitis or any purulent drainage clinically patient abdominal soft clinical examination chest is clear to auscultation and urine was negative. 2 patient fever has resolved and culture has been negative so far. The patient will continue with daptomycin and oral Flagyl and monitor clinical course closely Time with Patient: Less than 30
--- NOTE | 2022-01-13 22:57 | P.PN ---
Subjective Progress Note Date: 01/13/22 Principal diagnosis: Fever Patient is a 61 year old male with a past medical history is taken for renal transplant on immunosuppressive medication recently admitted to this facility for left foot wound underlying osteomyelitis and bacteremia for the patient was treated with cefepime and Flagyl subsequently presented to the hospital with new fever and increasing shortness of breath. Patient has been evaluated by vascular surgery recommended no debridement and have consented the wound care, ultrasound of the transplant kidney did not show any hydronephrosis On today's evaluation that is 01/13/2022, the patient remains to be afebrile the patient is breathing comfortably on room air, the patient denies any chest pain or shortness of breath or cough no abdominal pain no diarrhea, the patient denies pain to the left foot, no new symptoms Objective - Vital Signs Vital signs: Vital Signs Temp 98.2 F 01/13/22 13:37 Pulse 83 01/13/22 13:38 Resp 17 01/13/22 13:37 BP 116/68 01/13/22 13:37 Pulse Ox 96 01/13/22 13:37 FiO2 Intake & Output 01/12/22 01/13/22 01/13/22 18:59 06:59 18:59 Intake Total 1360 1100 Output Total 800 Balance 560 1100 Intake: Intake, IV Titration 640 740 Amount Dextrose 5% in Water 1, 640 640 000 ml @ 80 mls/hr IV . [id number] MARYLIN with Sodium Bicarb (1 Meq/ml) 150 ml Rx#:[id number] Sodium Ferric Gluconat- 100 Sucrose 125 mg In Sodium Chloride 0.9% 100 ml @ 100 mls/hr IVPB DAILY MARYLIN Rx#:[id number] Oral 720 360 Output: Urine 800 Other: Voiding Method Urinal Toilet Urinal Urinal # Voids 2 # Bowel Movements 1 - Exam GENERAL DESCRIPTION: A middle-age male lying in bed in no distress RESPIRATORY SYSTEM: Unlabored breathing , decreased breath sounds at bases HEART: S1 S2 regular rate and rhythm , ABDOMEN: Soft , no tenderness EXTREMITIES: Left foot wound is currently dressed no drainage on the dressing - Labs CBC & Chem 7: 01/13/22 06:04 01/13/22 06:04 Labs: Abnormal Lab Results - Last 24 Hours (Table) 01/13/22 01/13/22 Range/Units 06:04 06:04 RBC 2.85 L (4.30-5.90) m/uL Hgb 8.4 L (13.0-17.5) gm/dL Hct 26.1 L (39.0-53.0) % RDW 16.4 H (11.5-15.5) % Potassium 3.2 L (3.5-5.1) mmol/L BUN 37 H (9-20) mg/dL Creatinine 3.04 H (0.66-1.25) mg/dL Calcium 7.6 L (8.4-10.2) mg/dL Microbiology - Last 24 Hours (Table) 01/09/22 04:45 Blood Culture - Preliminary Blood No Growth after 96 hours 01/09/22 04:39 Blood Culture - Preliminary Blood No Growth after 96 hours Assessment and Plan (1) Diabetic foot ulcers Current Visit: Yes Status: Acute Code(s): E11.621 - TYPE 2 DIABETES MELLITUS WITH FOOT ULCER SNOMED Code(s): 269720654 (2) Fever Current Visit: Yes Status: Acute Code(s): R50.9 - FEVER, UNSPECIFIED SNOMED Code(s): 222888412 Plan: 1patient presented to hospital with sepsis and respiratory have fever elevated white count with a source possible left diabetic foot ulcer this patient c urrently being treated for osteomyelitis of the left foot with local culture positive for Klebsiella and MSSA and the patient did have MSSA bacteremia about a month ago now with new fever and white count question of PICC line infection as the patient left foot wound seems to be healing well and there was no evidence of any cellulitis or any purulent drainage clinically patient abdominal soft clinical examination chest is clear to auscultation and urine was negative. 2 patient fever has resolved and culture has been negative so far patient is currently being treated with daptomycin and oral Flagyl and waiting for transfer to [facility] because of worsening kidney function Time with Patient: Less than 30
[2022-01-14] MEDS: LACTATED RINGERS 1,000 ML IV SCH ×2 (04:03→13:38)
[2022-01-14 07:09] LABS: African American GFR (CKD) 22 (>60 ml/min/1.73 sqM); Anion Gap 8 mmol/L; Blood Urea Nitrogen 36 mg/dL (9-20); Calcium 7.7 mg/dL (8.4-10.2); Carbon Dioxide 26 mmol/L (22-30); Chloride 106 mmol/L (98-107); Glucose 86 mg/dL (74-99); Non-African American GFR(CKD) 19 (>60 ml/min/1.73 sqM); Potassium 3.9 mmol/L (3.5-5.1); Sodium 140 mmol/L (137-145)
[2022-01-14] MEDS: HEPARIN SODIUM,PORCINE/PF 5,000 UNIT/0.5 ML SYRINGE SQ SCH ×2 (09:26→17:00)
[2022-01-14] MEDS: metroNIDAZOLE 500 MG TAB PO SCH ×3 (10:04→21:09)
[2022-01-14] MEDS: NON FORMULARY DRUG (Brimonidine Tartrate/Timolol [Combigan 0.2%-0.5% Eye Drops] 5 ML Ml) BOTH EYES SCH ×2 (10:04→21:14)
[2022-01-14] MEDS: DORZOLAMIDE HCL 2% DROPS 10 ML BTL LEFT EYE SCH ×2 (10:04→21:09)
[2022-01-14] MEDS: MULTIVITAMINS, THERA 1 EACH TAB PO SCH (10:04)
[2022-01-14] MEDS: carvediloL 6.25 MG TAB PO SCH ×2 (10:05→21:10)
[2022-01-14] MEDS: TACROLIMUS 1 MG CAP PO SCH ×2 (10:05→21:10)
[2022-01-14] MEDS: ASPIRIN 81 MG PO SCH (10:05)
--- NOTE | 2022-01-14 11:16 | P.PN ---
Subjective Patient is seen in follow-up for acute kidney injury and renal transplant management. Renal function worsened again. Creatinine 3.3 today. No dif ficulty with urination. No vomiting or diarrhea. Oral intake is fair. Hemodynamically stable. Receiving IV fluids. Vital signs are stable. General: Awake. No acute distress. HEENT: Head exam is unremarkable. LUNGS: Breath sounds decreased. HEART: Rate and Rhythm are regular. ABDOMEN: Soft, no distention. EXTREMITITES: No edema. No drainage. Objective - Vital Signs Vital signs: Vital Signs Temp 98.7 F 01/14/22 06:53 Pulse 84 01/14/22 11:02 Resp 17 01/14/22 06:53 BP 174/77 01/14/22 11:02 Pulse Ox 94 L 01/14/22 06:53 FiO2 Intake & Output 01/13/22 01/14/22 01/14/22 18:59 06:59 18:59 Intake Total 1100 Output Total 300 Balance 1100 -300 Intake: Intake, IV Titration 740 Amount Dextrose 5% in Water 1, 640 000 ml @ 80 mls/hr IV . [id number] MARYLIN with Sodium Bicarb (1 Meq/ml) 150 ml Rx#:[id number] Sodium Ferric Gluconat- 100 Sucrose 125 mg In Sodium Chloride 0.9% 100 ml @ 100 mls/hr IVPB DAILY MARYLIN Rx#:[id number] Oral 360 Output: Urine 300 Other: Voiding Method Urinal Toilet Urinal # Voids 1 # Bowel Movements 0 - Labs CBC & Chem 7: 01/13/22 06:04 01/14/22 05:55 Labs: Abnormal Lab Results - Last 24 Hours (Table) 01/12/22 01/14/22 Range/Units 05:19 05:55 BUN 36 H (9-20) mg/dL Creatinine 3.38 H (0.66-1.25) mg/dL Calcium 7.7 L (8.4-10.2) mg/dL Tacrolimus <1.5 L (5.0-20.0) ng/mL Microbiology - Last 24 Hours (Table) 01/09/22 04:45 Blood Culture - Preliminary Blood No Growth after 120 hours 01/09/22 04:39 Blood Culture - Preliminary Blood No Growth after 120 hours Assessment and Plan Plan: Assessment: 1. Acute allograft dysfunction secondary to ATN secondary to severe sepsis. Creatinine 2.33 on admission - 3.38 today. Baseline creatinine near 1 from November 2021. No hydronephrosis noted on ultrasound. 2. Status post simultaneous kidney pancreas transplant from 1997 done at [facility][note 3]. 3. Left diabetic foot ulcer/osteomyelitis on antibiotics. ID following. Also been followed by wound care. 4. Metabolic acidosis secondary to acute kidney injury. s/p bicarb drip. Improved. 5. Anemia of chronic kidney disease. Iron deficiency noted. Status post IV iron. On Aranesp. 6. Hypertension with chronic disease. 7. Hypomagnesemia from poor intake and CNI induced magnesium losses. Replaced. 8. Hypokalemia from poor intake. Replaced. Better. Plan: Maintain LR at 75 mL an hour. Add oral magnesium oxide. Prograf resumed 01/12/2022. Repeat Prograf level. Hold nifedipine for systolic blood pressure less than 120. Continue to hold Vasotec for now. Avoid nephrotoxins. Continue to monitor renal function and urine output. Repeat UA and check urine eosinophils as well. Add hydralazine 25 mg 3 times daily. Hold for systolic blood pressure less than 125. Case discussed with primary team. Awaits transfer to [facility]. No beds available at this time. No beds available at [facility] either. [facility].
[2022-01-14 12:52] LABS: Appearance,Urine Clear (Clear); Bilirubin,Urine Negative (Negative); Blood,Urine Trace (Negative); Color,Urine Light Yellow; Glucose,Urine (UA) Negative (Negative); Ketones,Urine Negative (Negative); Leukocyte Esterase,Urine Negative (Negative); Mucus,Urine Rare /hpf; Nitrite,Urine Negative (Negative); Protein,Urine 1+ (Negative); RBC,Urine 1 /hpf (0-5); Specific Gravity,Urine 1.008 (1.001-1.035); Urobilinogen,Urine <2.0 mg/dL (<2.0); WBC,Urine 1 /hpf (0-5)
[2022-01-14] MEDS: hydrALAZINE HCL 25 MG TAB PO SCH ×3 (12:56→21:11)
[2022-01-14 14:15] VITALS: BMI 20.9
--- NOTE | 2022-01-14 15:16 | P.DS ---
Providers Date of admission: 01/09/22 04:34 Expected date of discharge: 01/14/22 Attending physician: Abraham Nino MD Consults: 01/09/22 04:34 Consult Physician Routine Consulting Provider: Carlos Sow Consult Reason/Comments: osteo Do you want consulting provider notified?: Yes 01/09/22 08:50 Consult Physician Urgent Consulting Provider: Flaquito Shane Consult Reason/Comments: ANA w/ hx of renal and pancrease transplant Do you want consulting provider notified?: Yes Primary care physician: Devon Brand MD Hospital Course: Discharge Diagnosis: Sepsis secondary to Osteomyelitis of left foot resulting from nonhealing/infected diabetic ulcer left foot plantar region Recent treatment of staph aureus bacteremia Acute kidney injury, status post renal transplant Hypomagnesemia, resolved Iron deficiency anemia Peripheral vascular disease Neuropathy Plan of care: - Continue with dapto and flagyl, IVF, avoid additional nephrotoxic agents, nephrology and ID recs, plan for transfer to [facility] when bed available. Hospital Course: Patient is a 61-year-old male who is status post renal and pancreatic transplant in [address] [facility] for diabetes and ESRD, neuropathy, peripheral vascular disease, skin cancer and recent diagnosis and treatment of staph aureus bacteremia and osteomyelitis of left foot. Patient recently hospitalized for staph aureus bacteremia and osteomyelitis of left foot from 12/07/21 through 12/15/21. [facility] of IV antibiotics with cefepime and flagyl. [facility] care facility sent patient back to the ED on 01/09/22 secondary to fever and reports of increased pain to left foot. He was found to be febrile with a temp of 101, WBC count of 13.6, and an acute kidney injury with BUN of 39, creatinine 2.33, and GFR of 30 with baseline creatinine of 0.9. Urinalysis negative for infection. Patient started on IV antibiotics vancomycin and admitted with infectious disease and nephrology consults. Renal ultrasound revealing renal transplant noted with multiple cysts the largest measuring 6.4 cm, no hydronephrosis or nephrolithiasis. Repeat x-ray left foot revealing a new erosion of the lateral aspect of the cuboidal bone consistent with osteomyelitis measuring 10 mm. Vascular surgery consulted no plans for surgery at this time. Due to worsening renal fuction he was transitioned from vanco to dapto. He developed an acidosis and nephrology started him on Bicarb gtt, his tacrolimus level came back low at 4.6. He was resumed on Tacro. His renal fucntion continued to worsen and nephrology recommended transfer to a [facility] transplant center on 01/12. He was accepted at [facility] by Dr. Valentin on 01/12 and patient is currently awaiting bed. Patient seen and examined at bedside. He is depressed about his worsening renal function. No chest pain, SOB, nuasea or vomiting. Vital signs reviewed and stable. General: nontoxic, no distress, appears at stated age Derm: warm, dry, dressing in place over the left foot Head: atraumatic, normocephalic, symmetric Eyes: EOMI, no lid lag, anicteric sclera Mouth: no lip lesion, mucus membranes moist Cardiovascular: S1S2 reg, no murmur, positive posterior tibial pulse bilateral, Lungs: CTA bilateral, no rhonchi, no rales , no accessory muscle use Abdominal: soft, nontender to palpation, no guarding, no appreciable organomegaly Ext: no gross muscle atrophy, trace edema, no contractures Neuro: CN II-XI grossly intact, no focal neuro deficits Psych: Alert, oriented, appropriate affect A total of 33 minutes was spent on the discharge of this complex patient. Patient Condition at Discharge: Fair Plan - Discharge Summary New Discharge Prescriptions: No Action predniSONE 5 mg PO DAILY Lovastatin [Mevacor] 20 mg PO HS mycophenolate mofetiL [Cellcept] 500 mg PO BID Enalapril [Vasotec] 20 mg PO HS Aspirin 81 mg PO DAILY Multivitamin [Men's Multi-Vitamin] 1 tab PO DAILY Tacrolimus [Prograf] 1 mg PO BID Dorzolamide 2% [Trusopt 2%] 1 drop LEFT EYE BID Cholecalciferol [Vitamin D3 (25 Mcg = 1000 Iu)] 25 mcg PO DAILY Folic Acid 1 mg PO DAILY carvediloL [Coreg] 6.25 mg PO BID Sodium Polystyrene Sulfonate [Kayexalate] 15 gm PO Q14D Brimonidine Tartrate/Timolol [Combigan 0.2%-0.5% Eye Drops] 1 drop BOTH EYES BID Cefepime [Maxipime] 2 gm IVPB Q8HR 35 Days #105 each Heparin Lock Flush Solution 10 Units/Ml 30 units IV Q8H Calcium Carbonate [Tums] 500 mg PO TID PRN PRN Reason: Heartburn NIFEdipine XL [Procardia XL] 60 mg PO BID Gabapentin 300 mg PO HS #30 cap Acetaminophen [Tylenol 8 Hour] 650 mg PO Q6H PRN PRN Reason: Pain Latanoprost/Pf [Latanoprost 0.005% Eye Drop] 1 drop BOTH EYES HS Melatonin 3 mg PO HS Discharge Medication List Aspirin 81 mg PO DAILY 09/27/13 [History] Enalapril [Vasotec] 20 mg PO HS 09/27/13 [History] Lovastatin [Mevacor] 20 mg PO HS 09/27/13 [History] Multivitamin [Men's Multi-Vitamin] 1 tab PO DAILY 09/27/13 [History] mycophenolate mofetiL [Cellcept] 500 mg PO BID 09/27/13 [History] predniSONE 5 mg PO DAILY 09/27/13 [History] Tacrolimus [Prograf] 1 mg PO BID 01/03/14 [History] Cholecalciferol [Vitamin D3 (25 Mcg = 1000 Iu)] 25 mcg PO DAILY 12/02/14 [History] Dorzolamide 2% [Trusopt 2%] 1 drop LEFT EYE BID 12/02/14 [History] Folic Acid 1 mg PO DAILY 10/20/17 [History] Sodium Polystyrene Sulfonate [Kayexalate] 15 gm PO Q14D 02/15/18 [History] carvediloL [Coreg] 6.25 mg PO BID 02/15/18 [History] Brimonidine Tartrate/Timolol [Combigan 0.2%-0.5% Eye Drops] 1 drop BOTH EYES BID 11/25/21 [History] Calcium Carbonate [Tums] 500 mg PO TID PRN 11/25/21 [History] NIFEdipine XL [Procardia XL] 60 mg PO BID 11/25/21 [History] Cefepime [Maxipime] 2 gm IVPB Q8HR 35 Days #105 each 12/15/21 [Rx] Gabapentin 300 mg PO HS #30 cap 12/16/21 [Rx] Acetaminophen [Tylenol 8 Hour] 650 mg PO Q6H PRN 01/09/22 [History] Heparin Lock Flush Solution 10 Units/Ml 30 units IV Q8H 01/09/22 [History] Latanoprost/Pf [Latanoprost 0.005% Eye Drop] 1 drop BOTH EYES HS 01/09/22 [History] Melatonin 3 mg PO HS 01/09/22 [History] Follow up Appointment(s)/Referral(s): Devon Brand MD [Primary Care Provider] - 1-2 days [facility], [NON-STAFF] - [facility] [NON-STAFF] - 1 Week
[2022-01-14] MEDS: LATANOPROST 0.005% OPHTH DROPS 2.5 ML BTL BOTH EYES SCH (21:09)
[2022-01-14] MEDS: QUEtiapine 25 MG TAB PO SCH (21:09)
[2022-01-14] MEDS: ATORVASTATIN 10 MG TAB PO SCH (21:10)
[2022-01-14] MEDS: MELATONIN 3 MG TABLET PO SCH (21:10)
[2022-01-14] MEDS: GABAPENTIN 300 MG CAP PO SCH (21:10)
--- NOTE | 2022-01-14 22:18 | P.PN ---
Subjective Progress Note Date: 01/14/22 Principal diagnosis: Fever Patient is a 61 year old male with a past medical history is taken for renal transplant on immunosuppressive medication recently admitted to this facility for left foot wound underlying osteomyelitis and bacteremia for the patient was treated with cefepime and Flagyl subsequently presented to the hospital with new fever and increasing shortness of breath. Patient has been evaluated by vascular surgery recommended no debridement and have consented the wound care, ultrasound of the transplant kidney did not show any hydronephrosis On today's evaluation that is 01/14/2022, the patient continues to be afebrile the patient is breathing comfortably on room air, the patient denies any chest pain or shortness of breath or cough , the patient denies abdominal pain no diarrhea, the patient denies pain to the left foot, Objective - Vital Signs Vital signs: Vital Signs Temp 98.7 F 01/14/22 06:53 Pulse 84 01/14/22 11:02 Resp 17 01/14/22 06:53 BP 174/77 01/14/22 11:02 Pulse Ox 94 L 01/14/22 06:53 FiO2 Intake & Output 01/13/22 01/14/22 01/14/22 18:59 06:59 18:59 Intake Total 1100 Output Total 300 Balance 1100 -300 Intake: Intake, IV Titration 740 Amount Dextrose 5% in Water 1, 640 000 ml @ 80 mls/hr IV . [id number] MARYLIN with Sodium Bicarb (1 Meq/ml) 150 ml Rx#:[id number] Sodium Ferric Gluconat- 100 Sucrose 125 mg In Sodium Chloride 0.9% 100 ml @ 100 mls/hr IVPB DAILY MARYLIN Rx#:[id number] Oral 360 Output: Urine 300 Other: Voiding Method Urinal Toilet Urinal # Voids 1 # Bowel Movements 0 - Exam GENERAL DESCRIPTION: A middle-age male lying in bed in no distress RESPIRATORY SYSTEM: Unlabored breathing , decreased breath sounds at bases HEART: S1 S2 regular rate and rhythm , ABDOMEN: Soft , no tenderness EXTREMITIES: Left foot wound is currently dressed no drainage on the dressing - Labs CBC & Chem 7: 01/13/22 06:04 01/14/22 05:55 Labs: Abnormal Lab Results - Last 24 Hours (Table) 01/12/22 01/14/22 Range/Units 05:19 05:55 BUN 36 H (9-20) mg/dL Creatinine 3.38 H (0.66-1.25) mg/dL Calcium 7.7 L (8.4-10.2) mg/dL Tacrolimus <1.5 L (5.0-20.0) ng/mL Microbiology - Last 24 Hours (Table) 01/09/22 04:45 Blood Culture - Preliminary Blood No Growth after 120 hours 01/09/22 04:39 Blood Culture - Preliminary Blood No Growth after 120 hours Assessment and Plan (1) Diabetic foot ulcers Current Visit: Yes Status: Acute Code(s): E11.621 - TYPE 2 DIABETES MELLITUS WITH FOOT ULCER SNOMED Code(s): 461417850 (2) Fever Current Visit: Yes Status: Acute Code(s): R50.9 - FEVER, UNSPECIFIED SNOMED Code(s): 124245052 Plan: 1patient presented to hospital with sepsis and respiratory have fever elevated white count with a source possible left diabetic foot ulcer this patient currently being treated for osteomyelitis of the left foot with local culture positive for Klebsiella and MSSA and the patient did have MSSA bacteremia about a month ago now with new fever and white count question of PICC line infection as the patient left foot wound seems to be healing well and there was no evidence of any cellulitis or any purulent drainage clinically patient abdominal soft clinical examination chest is clear to auscultation and urine was negative. 2 patient fever has resolved and culture has been negative so far patient to continue with daptomycin and oral Flagyl patient is currently waiting for transfer to [facility] because of worsening kidney function Time with Patient: Less than 30
[2022-01-15] MEDS: HEPARIN SODIUM,PORCINE/PF 5,000 UNIT/0.5 ML SYRINGE SQ SCH ×4 (03:15→22:23)
[2022-01-15] MEDS: LACTATED RINGERS 1,000 ML IV SCH ×2 (03:15→17:43)
[2022-01-15 07:57] LABS: African American GFR (CKD) 27 (>60 ml/min/1.73 sqM); Anion Gap 10 mmol/L; Blood Urea Nitrogen 34 mg/dL (9-20); Calcium 7.9 mg/dL (8.4-10.2); Carbon Dioxide 23 mmol/L (22-30); Chloride 108 mmol/L (98-107); Glucose 92 mg/dL (74-99); Magnesium 1.4 mg/dL (1.6-2.3); Non-African American GFR(CKD) 23 (>60 ml/min/1.73 sqM); Potassium 3.9 mmol/L (3.5-5.1); Sodium 141 mmol/L (137-145)
[2022-01-15] MEDS: metroNIDAZOLE 500 MG TAB PO SCH ×3 (09:04→22:17)
[2022-01-15] MEDS: predniSONE 5 MG TAB PO SCH (09:04)
[2022-01-15] MEDS: MAGNESIUM OXIDE 400 MG TAB PO SCH (09:04)
[2022-01-15] MEDS: carvediloL 6.25 MG TAB PO SCH ×2 (09:04→22:17)
[2022-01-15] MEDS: MULTIVITAMINS, THERA 1 EACH TAB PO SCH (09:04)
[2022-01-15] MEDS: hydrALAZINE HCL 25 MG TAB PO SCH ×3 (09:04→22:16)
[2022-01-15] MEDS: TACROLIMUS 1 MG CAP PO SCH ×2 (09:04→22:16)
[2022-01-15] MEDS: ASPIRIN 81 MG PO SCH (09:04)
[2022-01-15] MEDS: DORZOLAMIDE HCL 2% DROPS 10 ML BTL LEFT EYE SCH ×2 (09:05→22:22)
[2022-01-15] MEDS: NON FORMULARY DRUG (Brimonidine Tartrate/Timolol [Combigan 0.2%-0.5% Eye Drops] 5 ML Ml) BOTH EYES SCH ×2 (09:05→22:28)
--- NOTE | 2022-01-15 10:56 | P.PN ---
Subjective Patient is seen in follow-up for acute kidney injury and renal transplant management. Renal function better today. Creatinine 2.87 No difficulty with urination. No vomiting or diarrhea. Oral intake is fair. Hemodynamically stable. Receiving IV fluids. no active complaints. Vital signs are stable. General: Awake. No acute distress. HEENT: Head exam is unremarkable. LUNGS: Breath sounds decreased. HEART: Rate and Rhythm are regular. ABDOMEN: Soft, no distention. EXTREMITITES: No edema. No drainage. Objective - Vital Signs Vital signs: Vital Signs Temp 98.4 F 01/15/22 08:00 Pulse 98 01/15/22 08:00 Resp 18 01/15/22 08:00 BP 129/68 01/15/22 08:00 Pulse Ox 96 01/15/22 08:00 FiO2 Intake & Output 01/14/22 01/15/22 01/15/22 18:59 06:59 18:59 Intake Total 1000 Output Total 475 Balance 1000 -475 Weight 58.967 kg Intake: Oral 1000 Output: Urine 475 Other: Voiding Method Toilet Toilet Toilet Urinal Urinal Urinal # Voids 3 # Bowel Movements 1 - Labs CBC & Chem 7: 01/13/22 06:04 01/15/22 06:33 Labs: Abnormal Lab Results - Last 24 Hours (Table) 01/14/22 01/15/22 Range/Units 12:00 06:33 Chloride 108 H (98-107) mmol/L BUN 34 H (9-20) mg/dL Creatinine 2.87 H (0.66-1.25) mg/dL Calcium 7.9 L (8.4-10.2) mg/dL Magnesium 1.4 L (1.6-2.3) mg/dL Urine Protein 1+ H (Negative) Urine Blood Trace H (Negative) Urine Mucus Rare H (None) /hpf Microbiology - Last 24 Hours (Table) 01/09/22 04:45 Blood Culture - Final Blood No Growth after 144 hours 01/09/22 04:39 Blood Culture - Final Blood No Growth after 144 hours Assessment and Plan Plan: Assessment: 1. Acute allograft dysfunction secondary to ATN secondary to severe sepsis. Creatinine peaked at 3.38 at this admission - 2.87 today. Baseline creatinine near 1 from November 2021. No hydronephrosis noted on ultrasound. urine eosinophils negative. 2. Status post simultaneous kidney pancreas transplant from 1997 done at [facility]. 3. Left diabetic foot ulcer/osteomyelitis on antibiotics. ID following. Also been followed by wound care. 4. Metabolic acidosis secondary to acute kidney injury. s/p bicarb drip. Improved. 5. Anemia of chronic kidney disease. Iron deficiency noted. Status post IV iron. On Aranesp. 6. Hypertension with chronic kidney disease. controlled. 7. Hypomagnesemia from poor intake and CNI induced magnesium losses. on oral magnesium oxide. 8. Hypokalemia from poor intake. stable. Plan: Maintain LR at 75 mL an hour. 2 g IV magnesium sulfate today. Prograf resumed 01/12/2022. follow-up Prograf level. Hold nifedipine for systolic blood pressure less than 120. Continue to hold Vasotec for now. Avoid nephrotoxins. Continue to monitor renal function and urine output. Case discussed with primary team. Awaits transfer to [facility]. No beds available at this time. No beds available at [facility] either. [facility].
[2022-01-15] MEDS: MAGNESIUM SULFATE-D5W PMX 1 GM in DEXTROSE/WATER 1 100ML.BAG IVPB SCH ×2 (12:16→13:38)
--- NOTE | 2022-01-15 13:10 | P.PN ---
Subjective Progress Note Date: 01/15/22 Patient is a 61-year-old male who is status post renal and pancreatic transplant in [address] [facility] for diabetes and ESRD, neuropathy, peripheral vascular disease, skin cancer and recent diagnosis and treatment of staph aureus bacteremia and osteomyelitis of left foot. Patient recently hospitalized for staph aureus bacteremia and osteomyelitis of left foot from 12/07/21 through 12/15. Patient was discharged to [facility] for 5 more weeks of IV antibiotics with cefepime and flagyl. Extended care facility sent patient back to the ED on 01/09/22 secondary to fever and reports of increased pain to left foot. He was found to be febrile with a temp of 101, WBC count of 13.6, and an acute kidney injury with BUN of 39, creatinine 2.33, and GFR of 30 with baseline creatinine of 0.9. Urinalysis negative for infection. Patient started on IV antibiotics vancomycin and admitted with infectious disease and nephrology consults. Renal ultrasound revealing renal transplant noted with multiple cysts the largest measuring 6.4 cm, no hydronephrosis or nephrolithiasis. Repeat x-ray left foot revealing a new erosion of the lateral aspect of the cuboidal bone consistent with osteomyelitis measuring 10 mm. Vascular surgery consulted no plans for surgery at this time. Due to worsening renal function he was transitioned from vanco to dapto. He developed an acidosis and nephrology started him on Bicarb gtt, his tacrolimus level came back low at 4.6. He was resumed on Tacro. His renal function continued to worsen and nephrology recommended transfer to a renal transplant center on 01/12. He was accepted at [facility] by Dr. Valentin on 01/12 and patient is currently awaiting bed. His renal failure began to improve on 01/15/22. Patient seen and examined at bedside. Upset about renal function and awaiting bed. We discussed improvement in Cr. No diarrhea, no vomiting. General: nontoxic, no distress, appears at stated age Derm: warm, dry, dressing in place over the left foot Head: atraumatic, normocephalic, symmetric Eyes: EOMI, no lid lag, anicteric sclera Mouth: no lip lesion, mucus membranes moist Cardiovascular: S1S2 reg, no murmur, positive posterior tibial pulse bilateral, Lungs: Decrease bs bilateral, no rhonchi, no rales , no accessory muscle use Abdominal: soft, nontender to palpation, no guarding, no appreciable organomegaly Ext: no gross muscle atrophy, trace edema, no contractures Neuro: CN II-XI grossly intact, no focal neuro deficits Psych: Alert, oriented, appropriate affect Assessment: Sepsis secondary to Osteomyelitis of left foot resulting from nonhealing/infected diabetic ulcer left foot plantar region Acute kidney injury, status post renal transplant Hypokalemia, resolved Recent treatment of staph aureus bacteremia Hypomagnesemia Iron deficiency anemia Peripheral vascular disease Neuropathy Plan: off bicarb gtt per nephrology Monitor renal function replace potassium Prednisone, Tacro, MMF IV iron Hold ARB Continue with Dapto and Flagyl Replace Mg and recheck in AM ID and nephrology following. Active Medications Generic Name Dose Route Start Last Admin Trade Name Freq PRN Reason Stop Dose Admin Acetaminophen 650 mg 01/09/22 13:59 Acetaminophen Tab 325 Mg Tab PO Q6H PRN Pain Aspirin 81 mg 01/10/22 09:00 01/15/22 09:04 Aspirin 81 Mg PO 81 mg DAILY MARYLIN Administration Atorvastatin Calcium 10 mg 01/09/22 21:00 01/14/22 21:10 Atorvastatin 10 Mg Tab PO 10 mg HS MARYLIN Administration Calcium Carbonate/Glycine 500 mg 01/09/22 13:59 Calcium Carbonate 500 Mg Chewable PO TID PRN Heartburn Carvedilol 6.25 mg 01/09/22 21:00 01/15/22 09:04 Carvedilol 6.25 Mg Tab PO 6.25 mg BID MARYLIN Administration Darbepoetin Eitan 40 mcg 01/13/22 12:00 01/13/22 12:27 Darbepoetin Eitan 40 Mcg/0.4 Ml Syringe SQ 40 mcg Q7D MARYLIN Administration Dorzolamide HCl 1 drops 01/09/22 21:00 01/15/22 09:05 Dorzolamide Hcl 2% Drops 10 Ml Btl LEFT EYE 1 drops BID MARYLIN Administration Gabapentin 300 mg 01/09/22 21:00 01/14/22 21:10 Gabapentin 300 Mg Cap PO 300 mg HS MARYLIN Administration Heparin Sodium (Porcine) 5,000 unit 01/09/22 16:15 01/15/22 09:04 Heparin Sodium,Porcine/Pf 5,000 Unit/0.5 Ml Syringe SQ 5,000 unit Q8HR MARYLIN Administration Hydralazine HCl 25 mg 01/14/22 11:30 01/15/22 09:04 Hydralazine Hcl 25 Mg Tab PO 25 mg TID MARYLIN Administration Daptomycin 350 mg/ Sodium 50 mls @ 100 mls/hr 01/09/22 15:15 01/13/22 15:54 Chloride IVPB 100 mls/hr Q48H MARYLIN Administration Protocol Lactated Ringer's 1,000 mls @ 75 mls/hr 01/13/22 11:00 01/15/22 03:15 Lactated Ringers IV Not Given .[id number] MARYLIN Latanoprost 1 drops 01/09/22 21:00 01/14/22 21:09 Latanoprost 0.005% Ophth Drops 2.5 Ml Btl BOTH EYES 1 drops HS MARYLIN Administration Magnesium Oxide 400 mg 01/15/22 09:00 01/15/22 09:04 Magnesium Oxide 400 Mg Tab PO 400 mg DAILY MARYLIN Administration Melatonin 3 mg 01/09/22 21:00 01/14/22 21:10 Melatonin 3 Mg Tablet PO 3 mg HS MARYLIN Administration Metronidazole 500 mg 01/09/22 16:00 01/15/22 09:04 Metronidazole 500 Mg Tab PO 500 mg TID MARYLIN Administration Protocol Morphine Sulfate 4 mg 01/09/22 04:34 Morphine Sulfate 4 Mg/Ml Syringe IV Q4HR PRN Severe Pain (Scale 7 to 10) Multivitamins 1 each 01/09/22 14:15 01/15/22 09:04 Multivitamins, Thera 1 Each Tab PO 1 each DAILY MARYLIN Administration Mycophenolate Mofetil 500 mg 01/09/22 21:00 01/15/22 09:04 Mycophenolate Mofetil 500 Mg Tab PO 500 mg BID MARYLIN Administration Naloxone HCl 0.2 mg 01/09/22 04:34 Naloxone 0.4 Mg/Ml 1 Ml Vial IV Q2M PRN Opioid Reversal Nifedipine 60 mg 01/09/22 14:15 01/15/22 09:04 Nifedipine Xl 60 Mg Tab.Er.24 PO 60 mg BID MARYLIN Administration Non-Formulary Medication 1 drop 01/09/22 21:00 01/15/22 09:05 Brimonidine Tartrate/Timolol [Combigan 0.2%-0.5% Eye Drops] BOTH EYES 1 drop BID MARYLIN Administration Prednisone 5 mg 01/09/22 14:15 09/17/22 09:04 Prednisone 5 Mg Tab PO 5 mg DAILY MARYLIN Administration Quetiapine Fumarate 12.5 mg 01/12/22 21:00 01/14/22 21:09 Quetiapine 25 Mg Tab PO 12.5 mg HS MARYLIN Administration Tacrolimus 1 mg 01/12/22 09:00 01/15/22 09:04 Tacrolimus 1 Mg Cap PO 1 mg BID MARYLIN Administration Objective - Vital Signs Vital signs: Vital Signs Temp 98.4 F 01/15/22 08:00 Pulse 98 01/15/22 08:00 Resp 18 01/15/22 08:00 BP 129/68 01/15/22 08:00 Pulse Ox 96 01/15/22 08:00 FiO2 Intake & Output 01/14/22 01/15/22 01/15/22 18:59 06:59 18:59 Intake Total 1000 Output Total 475 Balance 1000 -475 Weight 58.967 kg Intake: Oral 1000 Output: Urine 475 Other: Voiding Method Toilet Toilet Toilet Urinal Urinal Urinal # Voids 3 # Bowel Movements 1 - Labs CBC & Chem 7: 01/13/22 06:04 01/15/22 06:33 Labs: Abnormal Lab Results - Last 24 Hours (Table) 01/15/22 Range/Units 06:33 Chloride 108 H (98-107) mmol/L BUN 34 H (9-20) mg/dL Creatinine 2.87 H (0.66-1.25) mg/dL Calcium 7.9 L (8.4-10.2) mg/dL Magnesium 1.4 L (1.6-2.3) mg/dL Microbiology - Last 24 Hours (Table) 01/09/22 04:45 Blood Culture - Final Blood No Growth after 144 hours 01/09/22 04:39 Blood Culture - Final Blood No Growth after 144 hours
--- NOTE | 2022-01-15 15:29 | P.PN ---
Subjective Progress Note Date: 01/15/22 Principal diagnosis: Fever Patient is a 61 year old male with a past medical history is taken for renal transplant on immunosuppressive medication recently admitted to this facility for left foot wound underlying osteomyelitis and bacteremia for the patient was treated with cefepime and Flagyl subsequently presented to the hospital with new fever and increasing shortness of breath. Patient has been evaluated by vascular surgery recommended no debridement and have consented the wound care, ultrasound of the transplant kidney did not show any hydronephrosis On today's evaluation that is 01/15/2022, the patient remains to be afebrile the patient is breathing comfortably on room air, the patient denies chest pain or shortness of breath or cough , the patient denies abdominal pain and no diarrhea, the patient denies pain to the left foot, patient with no new symptoms feeling better Objective - Vital Signs Vital signs: Vital Signs Temp 98.4 F 01/15/22 08:00 Pulse 98 01/15/22 08:00 Resp 18 01/15/22 08:00 BP 129/68 01/15/22 08:00 Pulse Ox 96 01/15/22 08:00 FiO2 Intake & Output 01/14/22 01/15/22 01/15/22 18:59 06:59 18:59 Intake Total 1000 Output Total 475 Balance 1000 -475 Weight 58.967 kg Intake: Oral 1000 Output: Urine 475 Other: Voiding Method Toilet Toilet Toilet Urinal Urinal Urinal # Voids 3 # Bowel Movements 1 - Exam GENERAL DESCRIPTION: A middle-age male lying in bed in no distress RESPIRATORY SYSTEM: Unlabored breathing , decreased breath sounds at bases HEART: S1 S2 regular rate and rhythm , ABDOMEN: Soft , no tenderness EXTREMITIES: Left foot wound is currently dressed no drainage on the dressing - Labs CBC & Chem 7: 01/13/22 06:04 01/15/22 06:33 Labs: Abnormal Lab Results - Last 24 Hours (Table) 01/15/22 Range/Units 06:33 Chloride 108 H (98-107) mmol/L BUN 34 H (9-20) mg/dL Creatinine 2.87 H (0.66-1.25) mg/dL Calcium 7.9 L (8.4-10.2) mg/dL Magnesium 1.4 L (1.6-2.3) mg/dL Microbiology - Last 24 Hours (Table) 01/09/22 04:45 Blood Culture - Final Blood No Growth after 144 hours 01/09/22 04:39 Blood Culture - Final Blood No Growth after 144 hours Assessment and Plan (1) Diabetic foot ulcers Current Visit: Yes Status: Acute Code(s): E11.621 - TYPE 2 DIABETES MELLITUS WITH FOOT ULCER SNOMED Code(s): 885634315 (2) Fever Current Visit: Yes Status: Acute Code(s): R50.9 - FEVER, UNSPECIFIED SNOMED Code(s): 765663210 Plan: 1patient presented to hospital with sepsis and respiratory have fever elevated white count with a source possible left diabetic foot ulcer this patient currently being treated for osteomyelitis of the left foot with local culture positive for Klebsiella and MSSA and the patient did have MSSA bacteremia about a month ago now with new fever and white count question of PICC line infection as the patient left foot wound seems to be healing well and there was no ev idence of any cellulitis or any purulent drainage clinically patient abdominal soft clinical examination chest is clear to auscultation and urine was negative. 2 patient fever has resolved and culture has been negative , patient to continue with current antibiotic treatment of daptomycin and oral Flagyl and monitor clinical course closely Time with Patient: Less than 30
[2022-01-15] MEDS: DAPTOmycin 350 MG in SODIUM CHLORIDE 0.9% 50 ML IVPB SCH (16:27)
[2022-01-15] MEDS: ATORVASTATIN 10 MG TAB PO SCH (22:16)
[2022-01-15] MEDS: QUEtiapine 25 MG TAB PO SCH (22:16)
[2022-01-15] MEDS: GABAPENTIN 300 MG CAP PO SCH (22:16)
[2022-01-15] MEDS: MELATONIN 3 MG TABLET PO SCH (22:17)
[2022-01-15] MEDS: LATANOPROST 0.005% OPHTH DROPS 2.5 ML BTL BOTH EYES SCH (22:23)
[2022-01-16 05:54] LABS: Anisocytosis Slight; HCT 27.6 % (39.0-53.0); HGB 8.6 gm/dL (13.0-17.5); Hypochromasia Slight; MCH 29.4 pg (25.0-35.0); MCHC 31.3 g/dL (31.0-37.0); MCV 93.8 fL (80.0-100.0); Mean Platelet Volume 7.6; Platelet Count 420 k/uL (150-450); RBC 2.94 m/uL (4.30-5.90); RDW 16.9 % (11.5-15.5); WBC 11.2 k/uL (3.8-10.6)
[2022-01-16] MEDS: predniSONE 5 MG TAB PO SCH (08:09)
[2022-01-16] MEDS: carvediloL 6.25 MG TAB PO SCH ×2 (08:09→21:43)
[2022-01-16] MEDS: HEPARIN SODIUM,PORCINE/PF 5,000 UNIT/0.5 ML SYRINGE SQ SCH ×4 (08:09→23:42)
[2022-01-16] MEDS: ASPIRIN 81 MG PO SCH (08:09)
[2022-01-16] MEDS: MULTIVITAMINS, THERA 1 EACH TAB PO SCH (08:09)
[2022-01-16] MEDS: metroNIDAZOLE 500 MG TAB PO SCH ×2 (08:09→17:04)
[2022-01-16] MEDS: MAGNESIUM OXIDE 400 MG TAB PO SCH (08:09)
[2022-01-16] MEDS: TACROLIMUS 1 MG CAP PO SCH ×2 (08:09→21:42)
[2022-01-16] MEDS: hydrALAZINE HCL 25 MG TAB PO SCH ×3 (08:09→21:43)
[2022-01-16] MEDS: DORZOLAMIDE HCL 2% DROPS 10 ML BTL LEFT EYE SCH ×2 (08:10→21:43)
[2022-01-16] MEDS: NON FORMULARY DRUG (Brimonidine Tartrate/Timolol [Combigan 0.2%-0.5% Eye Drops] 5 ML Ml) BOTH EYES SCH ×2 (08:11→21:44)
[2022-01-16 08:14] LABS: African American GFR (CKD) 26 (>60 ml/min/1.73 sqM); Anion Gap 9 mmol/L; Blood Urea Nitrogen 32 mg/dL (9-20); Calcium 7.8 mg/dL (8.4-10.2); Carbon Dioxide 23 mmol/L (22-30); Chloride 105 mmol/L (98-107); Glucose 89 mg/dL (74-99); Non-African American GFR(CKD) 22 (>60 ml/min/1.73 sqM); Potassium 4.2 mmol/L (3.5-5.1); Sodium 137 mmol/L (137-145)
--- NOTE | 2022-01-16 10:38 | P.PN ---
Subjective Patient is seen in follow-up for acute kidney injury and renal transplant management. Renal function stable. No difficulty with urination. No vomiting or diarrhea. Oral intake is fair. Hemodynamically stable. Receiving IV fluids. no active complaints. no changes overnight. Vital signs are stable. General: Awake. No acute distress. HEENT: Head exam is unremarkable. LUNGS: Breath sounds decreased. HEART: Rate and Rhythm are regular. ABDOMEN: Soft, no distention. EXTREMITITES: No edema. No drainage. Objective - Vital Signs Vital signs: Vital Signs Temp 97.9 F 01/16/22 07:40 Pulse 86 01/16/22 07:40 Resp 16 01/16/22 07:40 BP 106/61 01/16/22 07:40 Pulse Ox 96 01/16/22 07:40 FiO2 Intake & Output 01/15/22 01/16/22 01/16/22 18:59 06:59 18:59 Output Total 300 Balance -300 Output: Urine 300 Other: Voiding Method Toilet Urinal # Voids 2 - Labs CBC & Chem 7: 01/16/22 04:34 01/16/22 04:34 Labs: Abnormal Lab Results - Last 24 Hours (Table) 01/16/22 01/16/22 Range/Units 04:34 04:34 WBC 11.2 H (3.8-10.6) k/uL RBC 2.94 L (4.30-5.90) m/uL Hgb 8.6 L (13.0-17.5) gm/dL Hct 27.6 L (39.0-53.0) % RDW 16.9 H (11.5-15.5) % BUN 32 H (9-20) mg/dL Creatinine 2.95 H (0.66-1.25) mg/dL Calcium 7.8 L (8.4-10.2) mg/dL Microbiology - Last 24 Hours (Table) 01/09/22 04:45 Blood Culture - Final Blood No Growth after 144 hours 01/09/22 04:39 Blood Culture - Final Blood No Growth after 144 hours Assessment and Plan Plan: Assessment: 1. Acute allograft dysfunction secondary to ATN secondary to severe sepsis. Creatinine peaked at 3.38 at this admission - fairly stable at 2.95 today. Baseline creatinine near 1 from November 2021. No hydronephrosis noted on ultrasound. urine eosinophils negative. 2. Status post simultaneous kidney pancreas transplant from 1997 done at [facility]. 3. Left diabetic foot ulcer/osteomyelitis on antibiotics. ID following. Also been followed by wound care. 4. Metabolic acidosis secondary to acute kidney injury. s/p bicarb drip. I mproved. 5. Anemia of chronic kidney disease. Iron deficiency noted. Status post IV iron. On Aranesp. 6. Hypertension with chronic kidney disease. controlled. 7. Hypomagnesemia from poor intake and CNI induced magnesium losses. replaced. On oral magnesium oxide. Better. 8. Hypokalemia from poor intake. better. Plan: Maintain LR at 75 mL an hour. Prograf resumed 01/12/2022. follow-up Prograf level. Hold nifedipine/hydralazine for systolic blood pressure less than 120. Continue to hold Vasotec for now. Avoid nephrotoxins. Continue to monitor renal function and urine output. Case discussed with primary team. Awaits transfer to [facility]. No beds available at this time. No beds available at [facility] either. Patient not accepted [facility].
--- NOTE | 2022-01-16 15:07 | P.PN ---
Subjective Progress Note Date: 01/16/22 (delayed charting seen at 1045) Patient is a 61-year-old male who is status post renal and pancreatic transplant in 1997 from [facility] for diabetes and ESRD, neuropathy, peripheral vascular disease, skin cancer and recent diagnosis and treatment of staph aureus bacteremia and osteomyelitis of left foot. Patient recently hospitalized for staph aureus bacteremia and osteomyelitis of left foot from 12/07/21 through 12/15/21. Patient was discharged to [facility] facility for 5 more weeks of IV antibiotics with cefepime and flagyl. Extended care facility sent patient back to the ED on 01/09/22 secondary to fever and reports of increased pain to left foot. He was found to be febrile with a temp of 101, WBC count of 13.6, and an acute kidney injury with BUN of 39, creatinine 2.33, and GFR of 30 with baseline creatinine of 0.9. Urinalysis negative for infection. Patient started on IV antibiotics vancomycin and admitted with infectious disease and nephrology consults. Renal ultrasound revealing renal transplant noted with multiple cysts the largest measuring 6.4 cm, no hydronephrosis or nephrolithiasis. Repeat x-ray left foot revealing a new erosion of the lateral aspect of the cuboidal bone consistent with osteomyelitis measuring 10 mm. Vascular surgery consulted no plans for surgery at this time. Due to worsening renal function he was transitioned from vanco to dapto. He developed an acidosis and nephrology started him on Bicarb gtt, his tacrolimus level came back low at 4.6. He was resumed on Tacro. His renal function continued to worsen and nephrology recommended transfer to a renal transplant center on 01/12. He was accepted at [facility] by Dr. Valentin on 01/12 and patient is currently awaiting bed. His renal failure began to improve on 01/15/22. He was not accepted at [facility]. [facility] had no beds available. Awaiting bed at [facility]. Patient seen and examined at bedside. No complaints. No n/v/d, no pain. Still feeling anxious about renal function. General: nontoxic, no distress, appears at stated age Derm: warm, dry, dressing in place over the left foot Head: atraumatic, normocephalic, symmetric Eyes: EOMI, no lid lag, anicteric sclera Mouth: no lip lesion, mucus membranes moist Cardiovascular: S1S2 reg, no murmur, positive posterior tibial pulse bilateral, Lungs: Decrease bs bilateral, no rhonchi, no rales , no accessory muscle use Abdominal: soft, nontender to palpation, no guarding, no appreciable organomegaly Ext: no gross muscle atrophy, trace edema, no contractures Neuro: CN II-XI grossly intact, no focal neuro deficits Psych: Alert, oriented, appropriate affect Assessment: Sepsis secondary to Osteomyelitis of left foot resulting from nonhealing/infected diabetic ulcer left foot plantar region Acute kidney injury, status post renal transplant Hypokalemia, resolved Recent treatment of staph aureus bacteremia Hypomagnesemia Iron deficiency anemia Peripheral vascular disease Neuropathy Plan: LR Monitor renal function Prednisone, Tacro, MMF 2s/p IV iron X 3 Hold ARB Continue with Dapto and Flagyl ID and nephrology following. Awaiting bed at [facility] Active Medications Generic Name Dose Route Start Last Admin Trade Name Freq PRN Reason Stop Dose Admin Acetaminophen 650 mg 01/09/22 13:59 Acetaminophen Tab 325 Mg Tab PO Q6H PRN Pain Aspirin 81 mg 01/10/22 09:00 01/16/22 08:09 Aspirin 81 Mg PO 81 mg DAILY MARYLIN Administration Atorvastatin Calcium 10 mg 01/09/22 21:00 01/15/22 22:16 Atorvastatin 10 Mg Tab PO 10 mg HS MARYLIN Administration Calcium Carbonate/Glycine 500 mg 01/09/22 13:59 Calcium Carbonate 500 Mg Chewable PO TID PRN Heartburn Carvedilol 6.25 mg 01/09/22 21:00 01/16/22 08:09 Carvedilol 6.25 Mg Tab PO 6.25 mg BID MARYLIN Administration Darbepoetin Eitan 40 mcg 01/13/22 12:00 01/13/22 12:27 Darbepoetin Eitan 40 Mcg/0.4 Ml Syringe SQ 40 mcg Q7D MARYLIN Administration Dorzolamide HCl 1 drops 01/09/22 21:00 01/16/22 08:10 Dorzolamide Hcl 2% Drops 10 Ml Btl LEFT EYE 1 drops BID MARYLIN Administration Gabapentin 300 mg 01/09/22 21:00 01/15/22 22:16 Gabapentin 300 Mg Cap PO 300 mg HS MARYLIN Administration Heparin Sodium (Porcine) 5,000 unit 01/09/22 16:15 01/16/22 08:09 Heparin Sodium,Porcine/Pf 5,000 Unit/0.5 Ml Syringe SQ 5,000 unit Q8HR MARYLIN Administration Hydralazine HCl 25 mg 01/14/22 11:30 01/16/22 08:09 Hydralazine Hcl 25 Mg Tab PO 25 mg TID MARYLIN Administration Daptomycin 350 mg/ Sodium 50 mls @ 100 mls/hr 01/09/22 15:15 01/15/22 16:27 Chloride IVPB 100 mls/hr Q48H MARYLIN Administration Protocol Lactated Ringer's 1,000 mls @ 75 mls/hr 01/13/22 11:00 01/15/22 17:43 Lactated Ringers IV Not Given .[id number] MARYLIN Latanoprost 1 drops 01/09/22 21:00 01/15/22 22:23 Latanoprost 0.005% Ophth Drops 2.5 Ml Btl BOTH EYES 1 drops HS MARYLIN Administration Magnesium Oxide 400 mg 01/15/22 09:00 01/16/22 08:09 Magnesium Oxide 400 Mg Tab PO 400 mg DAILY MARYLIN Administration Melatonin 3 mg 01/09/22 21:00 01/15/22 22:17 Melatonin 3 Mg Tablet PO 3 mg HS MARYLIN Administration Metronidazole 500 mg 01/09/22 16:00 01/16/22 08:09 Metronidazole 500 Mg Tab PO 500 mg TID MARYLIN Administration Protocol Morphine Sulfate 4 mg 01/09/22 04:34 Morphine Sulfate 4 Mg/Ml Syringe IV Q4HR PRN Severe Pain (Scale 7 to 10) Multivitamins 1 each 01/09/22 14:15 01/16/22 08:09 Multivitamins, Thera 1 Each Tab PO 1 each DAILY MARYLIN Administration Mycophenolate Mofetil 500 mg 01/09/22 21:00 01/16/22 08:10 Mycophenolate Mofetil 500 Mg Tab PO 500 mg BID MARYLIN Administration Naloxone HCl 0.2 mg 01/09/22 04:34 Naloxone 0.4 Mg/Ml 1 Ml Vial IV Q2M PRN Opioid Reversal Nifedipine 60 mg 01/09/22 14:15 01/16/22 08:09 Nifedipine Xl 60 Mg Tab.Er.24 PO 60 mg BID MARYLIN Administration Non-Formulary Medication 1 drop 01/09/22 21:00 01/16/22 08:11 Brimonidine Tartrate/Timolol [Combigan 0.2%-0.5% Eye Drops] BOTH EYES Not Given BID MARYLIN Prednisone 5 mg 01/09/22 14:15 01/16/22 08:09 Prednisone 5 Mg Tab PO 5 mg DAILY MARYLIN Administration Quetiapine Fumarate 12.5 mg 01/12/22 21:00 01/15/22 22:16 Quetiapine 25 Mg Tab PO 12.5 mg HS MARYLIN Administration Tacrolimus 1 mg 01/12/22 09:00 01/16/22 08:09 Tacrolimus 1 Mg Cap PO 1 mg BID MARYLIN Administration Objective - Vital Signs Vital signs: Vital Signs Temp 97.9 F 01/16/22 07:40 Pulse 86 01/16/22 07:40 Resp 16 01/16/22 07:40 BP 106/61 01/16/22 07:40 Pulse Ox 96 01/16/22 07:40 FiO2 Intake & Output 01/15/22 01/16/22 01/16/22 18:59 06:59 18:59 Output Total 300 Balance -300 Output: Urine 300 Other: Voiding Method Toilet Urinal # Voids 2 - Labs CBC & Chem 7: 01/16/22 04:34 01/16/22 04:34 Labs: Abnormal Lab Results - Last 24 Hours (Table) 01/16/22 01/16/22 Range/Units 04:34 04:34 WBC 11.2 H (3.8-10.6) k/uL RBC 2.94 L (4.30-5.90) m/uL Hgb 8.6 L (13.0-17.5) gm/dL Hct 27.6 L (39.0-53.0) % RDW 16.9 H (11.5-15.5) % BUN 32 H (9-20) mg/dL Creatinine 2.95 H (0.66-1.25) mg/dL Calcium 7.8 L (8.4-10.2) mg/dL
[2022-01-16] MEDS: LACTATED RINGERS 1,000 ML IV SCH ×2 (17:05→21:44)
--- NOTE | 2022-01-16 19:45 | US ---
EXAMINATION TYPE: US venous doppler duplex UE RT DATE OF EXAM: 01/16/2022 COMPARISON: NONE CLINICAL HISTORY: clot. Right arm swelling. Patient states having IV in right arm for 6 days. SIDE PERFORMED: Right Right Arm: Negative for DVT. Positive for SVT in Basilic vn at antecubital location IMPRESSION: No evidence of deep vein thrombosis in the right arm. There is superficial thrombus in the basilic an d antecubital vein.
[2022-01-16] MEDS: QUEtiapine 25 MG TAB PO SCH (21:42)
[2022-01-16] MEDS: LATANOPROST 0.005% OPHTH DROPS 2.5 ML BTL BOTH EYES SCH (21:43)
[2022-01-16] MEDS: MELATONIN 3 MG TABLET PO SCH (21:43)
[2022-01-16] MEDS: ATORVASTATIN 10 MG TAB PO SCH (21:43)
[2022-01-16] MEDS: GABAPENTIN 300 MG CAP PO SCH (21:43)
[2022-01-17 05:27] LABS: African American GFR (CKD) 27 (>60 ml/min/1.73 sqM); Anion Gap 9 mmol/L; Blood Urea Nitrogen 32 mg/dL (9-20); Carbon Dioxide 22 mmol/L (22-30); Chloride 103 mmol/L (98-107); Glucose 92 mg/dL (74-99); Magnesium 1.7 mg/dL (1.6-2.3); Non-African American GFR(CKD) 23 (>60 ml/min/1.73 sqM); Potassium 4.4 mmol/L (3.5-5.1); Sodium 134 mmol/L (137-145)
[2022-01-17 05:58] LABS: Anisocytosis Slight; HCT 28.5 % (39.0-53.0); Hypochromasia Slight; MCH 29.5 pg (25.0-35.0); MCHC 31.6 g/dL (31.0-37.0); MCV 93.3 fL (80.0-100.0); Mean Platelet Volume 7.4; Platelet Count 488 k/uL (150-450); RBC 3.05 m/uL (4.30-5.90); RDW 17.1 % (11.5-15.5); WBC 11.9 k/uL (3.8-10.6)
[2022-01-17] MEDS: TACROLIMUS 1 MG CAP PO SCH ×2 (08:01→22:25)
[2022-01-17] MEDS: HEPARIN SODIUM,PORCINE/PF 5,000 UNIT/0.5 ML SYRINGE SQ SCH ×3 (08:01→22:29)
[2022-01-17] MEDS: MAGNESIUM OXIDE 400 MG TAB PO SCH (08:01)
[2022-01-17] MEDS: ASPIRIN 81 MG PO SCH (08:02)
[2022-01-17] MEDS: carvediloL 6.25 MG TAB PO SCH ×2 (08:02→22:25)
[2022-01-17] MEDS: predniSONE 5 MG TAB PO SCH (08:02)
[2022-01-17] MEDS: MULTIVITAMINS, THERA 1 EACH TAB PO SCH (08:02)
[2022-01-17] MEDS: hydrALAZINE HCL 25 MG TAB PO SCH ×3 (08:02→22:25)
[2022-01-17] MEDS: DORZOLAMIDE HCL 2% DROPS 10 ML BTL LEFT EYE SCH ×2 (08:04→22:28)
[2022-01-17] MEDS: NON FORMULARY DRUG (Brimonidine Tartrate/Timolol [Combigan 0.2%-0.5% Eye Drops] 5 ML Ml) BOTH EYES SCH ×2 (08:05→22:27)
--- NOTE | 2022-01-17 08:19 | P.PN ---
Subjective Progress Note Date: 01/16/22 Principal diagnosis: Fever Patient is a 61 year old male with a past medical history is taken for renal transplant on immunosuppressive medication recently admitted to this facility for left foot wound underlying osteomyelitis and bacteremia for the patient was treated with cefepime and Flagyl subsequently presented to the hospital with new fever and increasing shortness of breath. Patient has been evaluated by vascular surgery recommended no debridement and have consented the wound care, ultrasound of the transplant kidney did not show any hydronephrosis On today's evaluation that is 01/16/2022, the patient continues to be afebrile the patient is breathing comfortably on room air, the patient denies chest pain or shortness of breath or cough , the patient denies abdominal pain and no diarrhea, the patient denies pain to the left foot Objective - Vital Signs Vital signs: Vital Signs Temp 97.9 F 01/16/22 07:40 Pulse 86 01/16/22 07:40 Resp 16 01/16/22 07:40 BP 106/61 01/16/22 07:40 Pulse Ox 96 01/16/22 07:40 FiO2 Intake & Output 01/15/22 01/16/22 01/16/22 18:59 06:59 18:59 Output Total 300 Balance -300 Output: Urine 300 Other: Voiding Method Toilet Urinal # Voids 2 - Exam GENERAL DESCRIPTION: A middle-age male lying in bed in no distress RESPIRATORY SYSTEM: Unlabored breathing , decreased breath sounds at bases HEART: S1 S2 regular rate and rhythm , ABDOMEN: Soft , no tenderness EXTREMITIES: Left foot wound is currently dressed no drainage on the dressing - Labs CBC & Chem 7: 01/17/22 04:50 01/17/22 04:50 Labs: Abnormal Lab Results - Last 24 Hours (Table) 01/16/22 01/16/22 Range/Units 04:34 04:34 WBC 11.2 H (3.8-10.6) k/uL RBC 2.94 L (4.30-5.90) m/uL Hgb 8.6 L (13.0-17.5) gm/dL Hct 27.6 L (39.0-53.0) % RDW 16.9 H (11.5-15.5) % BUN 32 H (9-20) mg/dL Creatinine 2.95 H (0.66-1.25) mg/dL Calcium 7.8 L (8.4-10.2) mg/dL Assessment and Plan (1) Diabetic foot ulcers Current Visit: Yes Status: Acute Code(s): E11.621 - TYPE 2 DIABETES MELLITUS WITH FOOT ULCER SNOMED Code(s): 077806962 (2) Fever Current Visit: Yes Status: Acute Code(s): R50.9 - FEVER, UNSPECIFIED SNOMED Code(s): 853115164 Plan: 1patient presented to hospital with sepsis and respiratory have fever elevated white count with a source possible left diabetic foot ulcer this patient currently being treated for osteomyelitis of the left foot with local culture positive for Klebsiella and MSSA and the patient did have MSSA bacteremia about a month ago now with new fever and white count question of PICC line infection as the patient left foot wound seems to be healing well and there was no evidence of any cellulitis or any purulent drainage clinically patient abdominal soft clinical examination chest is clear to auscultation and urine was negative. 2 patient fever has resolved and culture has been negative , patient to continue with daptomycin and oral Flagyl and continue supportive care Time with Patient: Less than 30
[2022-01-17 08:51] VITALS: RESP 16
[2022-01-17] MEDS: metroNIDAZOLE 500 MG TAB PO SCH ×3 (09:24→22:25)
--- NOTE | 2022-01-17 10:21 | P.PN ---
Subjective Progress Note Date: 01/17/22 Patient is a 61-year-old male who is status post renal and pancreatic transplant in 1997 from [facility] for diabetes and ESRD, neuropathy, peripheral vascular disease, skin cancer and recent diagnosis and treatment of staph aureus bacteremia and osteomyelitis of left foot. Patient recently hospitalized for staph aureus bacteremia and osteomyelitis of left foot from 12/07/21 through 12/15. Patient was discharged to alf facility for 5 more weeks of IV antibiotics with cefepime and flagyl. Extended care facility sent patient back to the ED on 01/09/22 secondary to fever and reports of increased pain to left foot. He was found to be febrile with a temp of 101, WBC count of 13.6, and an acute kidney injury with BUN of 39, creatinine 2.33, and GFR of 30 with baseline creatinine of 0.9. Urinalysis negative for infection. Patient started on IV antibiotics vancomycin and admitted with infectious disease and nephrology consults. Renal ultrasound revealing renal transplant noted with multiple cysts the largest measuring 6.4 cm, no hydronephrosis or nephrolithiasis. Repeat x-ray left foot revealing a new erosion of the lateral aspect of the cuboidal bone consistent with osteomyelitis measuring 10 mm. Vascular surgery consulted no plans for surgery at this time. Due to worsening renal function he was transitioned from vanco to dapto. He developed an acidosis and nephrology started him on Bicarb gtt, his tacrolimus level came back low at 4.6. He was resumed on Tacro. His renal function continued to worsen and nephrology recommended transfer to a renal transplant center on 01/12. He was accepted at [facility] by Dr. Valentin on 01/12 and patient is currently awaiting bed. His renal failure began to improve on 01/15/22. He developed swelling of his right arm on 01/16 at a site of old IV. Ultrasound revealed superficial thrombophlebitis. He was not accepted at [facility]. [facility] had no beds available. Awaiting bed at [facility]. Patient seen and examined at bedside. Denies any pain in his arm, no nausea, no diarrhea, no breathing problems. General: nontoxic, no distress, appears at stated age Derm: warm, dry, dressing in place over the left foot, Right fore arm with swelling- no erythema or warmth Head: atraumatic, normocephalic, symmetric Eyes: EOMI, no lid lag, anicteric sclera Mouth: no lip lesion, mucus membranes moist Cardiovascular: S1S2 reg, no murmur, positive posterior tibial pulse bilateral, Lungs: Decrease bs bilateral, no rhonchi, no rales , no accessory muscle use Abdominal: soft, nontender to palpation, no guarding, no appreciable orga nomegaly Ext: no gross muscle atrophy, trace edema, no contractures Neuro: CN II-XI grossly intact, no focal neuro deficits Psych: Alert, oriented, appropriate affect Assessment: Sepsis secondary to Osteomyelitis of left foot resulting from nonhealing/infected diabetic ulcer left foot plantar region Superficial thrombophlebitis right forearm Thrombocytosis, suspect reactive Acute kidney injury, status post renal transplant Hypokalemia, resolved Recent treatment of staph aureus bacteremia Hypomagnesemia Iron deficiency anemia Peripheral vascular disease Neuropathy Plan: LR Follow CBC Alternate heat and cold on right arm- discussed with nursing Monitor renal function Prednisone, Tacro, MMF 2s/p IV iron X 3 Hold ARB Continue with Dapto and Flagyl ID and nephrology following. Awaiting bed at [facility] Active Medications Generic Name Dose Route Start Last Admin Trade Name Freq PRN Reason Stop Dose Admin Acetaminophen 650 mg 01/09/22 13:59 Acetaminophen Tab 325 Mg Tab PO Q6H PRN Pain Aspirin 81 mg 01/10/22 09:00 01/17/22 08:02 Aspirin 81 Mg PO 81 mg DAILY MARYLIN Administration Calcium Carbonate/Glycine 500 mg 01/09/22 13:59 Calcium Carbonate 500 Mg Chewable PO TID PRN Heartburn Carvedilol 6.25 mg 01/09/22 21:00 01/17/22 08:02 Carvedilol 6.25 Mg Tab PO 6.25 mg BID MARYLIN Administration Darbepoetin Eitan 40 mcg 01/13/22 12:00 01/13/22 12:27 Darbepoetin Eitan 40 Mcg/0.4 Ml Syringe SQ 40 mcg Q7D MARYLIN Administration Dorzolamide HCl 1 drops 01/09/22 21:00 01/17/22 08:04 Dorzolamide Hcl 2% Drops 10 Ml Btl LEFT EYE 1 drops BID MARYLIN Administration Gabapentin 300 mg 01/09/22 21:00 01/16/22 21:43 Gabapentin 300 Mg Cap PO 300 mg HS MARYLIN Administration Heparin Sodium (Porcine) 5,000 unit 01/09/22 16:15 01/17/22 08:01 Heparin Sodium,Porcine/Pf 5,000 Unit/0.5 Ml Syringe SQ 5,000 unit Q8HR MARYLIN Administration Hydralazine HCl 25 mg 01/14/22 11:30 01/17/22 08:02 Hydralazine Hcl 25 Mg Tab PO 25 mg TID MARYLIN Administration Lactated Ringer's 1,000 mls @ 75 mls/hr 01/13/22 11:00 01/16/22 21:44 Lactated Ringers IV Not Given .[id number] MARYLIN Daptomycin 350 mg/ Sodium 50 mls @ 100 mls/hr 01/17/22 12:00 Chloride IVPB Q48H MARYLIN Protocol Latanoprost 1 drops 01/09/22 21:00 01/16/22 21:43 Latanoprost 0.005% Ophth Drops 2.5 Ml Btl BOTH EYES 1 drops HS MARYLIN Administration Magnesium Oxide 400 mg 01/15/22 09:00 01/17/22 08:01 Magnesium Oxide 400 Mg Tab PO 400 mg DAILY MARYLIN Administration Melatonin 3 mg 01/09/22 21:00 01/16/22 21:43 Melatonin 3 Mg Tablet PO 3 mg HS MARYLIN Administration Metronidazole 500 mg 01/17/22 09:00 01/17/22 09:24 Metronidazole 500 Mg Tab PO 500 mg TID MARYLIN Administration Protocol Morphine Sulfate 4 mg 01/09/22 04:34 Morphine Sulfate 4 Mg/Ml Syringe IV Q4HR PRN Severe Pain (Scale 7 to 10) Multivitamins 1 each 01/09/22 14:15 01/17/22 08:02 Multivitamins, Thera 1 Each Tab PO 1 each DAILY MARYLIN Administration Mycophenolate Mofetil 500 mg 01/09/22 21:00 01/17/22 08:03 Mycophenolate Mofetil 500 Mg Tab PO 500 mg BID MARYLIN Administration Naloxone HCl 0.2 mg 01/09/22 04:34 Naloxone 0.4 Mg/Ml 1 Ml Vial IV Q2M PRN Opioid Reversal Nifedipine 60 mg 01/09/22 14:15 01/17/22 08:02 Nifedipine Xl 60 Mg Tab.Er.24 PO 60 mg BID MARYLIN Administration Non-Formulary Medication 1 drop 01/09/22 21:00 01/17/22 08:05 Brimonidine Tartrate/Timolol [Combigan 0.2%-0.5% Eye Drops] BOTH EYES Not Given BID MARYLIN Prednisone 5 mg 01/09/22 14:15 01/17/22 08:02 Prednisone 5 Mg Tab PO 5 mg DAILY MARYLIN Administration Quetiapine Fumarate 12.5 mg 01/12/22 21:00 01/16/22 21:42 Quetiapine 25 Mg Tab PO 12.5 mg HS MARYLIN Administration Tacrolimus 1 mg 01/12/22 09:00 01/17/22 08:01 Tacrolimus 1 Mg Cap PO 1 mg BID MARYLIN Administration Objective - Vital Signs Vital signs: Vital Signs Temp 98 F 01/17/22 08:00 Pulse 92 01/17/22 08:00 Resp 16 01/17/22 08:00 BP 131/72 01/17/22 08:00 Pulse Ox 95 01/17/22 08:00 FiO2 Intake & Output 01/16/22 01/17/22 01/17/22 18:59 06:59 18:59 Output Total 400 Balance -400 Output: Urine 400 Other: Voiding Method Toilet Urinal - Labs CBC & Chem 7: 01/17/22 04:50 01/17/22 04:50 Labs: Abnormal Lab Results - Last 24 Hours (Table) 01/17/22 01/17/22 Range/Units 04:50 04:50 WBC 11.9 H (3.8-10.6) k/uL RBC 3.05 L (4.30-5.90) m/uL Hgb 9.0 L (13.0-17.5) gm/dL Hct 28.5 L (39.0-53.0) % RDW 17.1 H (11.5-15.5) % Plt Count 488 H (150-450) k/uL Sodium 134 L (137-145) mmol/L BUN 32 H (9-20) mg/dL Creatinine 2.82 H (0.66-1.25) mg/dL Calcium 8.0 L (8.4-10.2) mg/dL
[2022-01-17] MEDS: DAPTOmycin 350 MG in SODIUM CHLORIDE 0.9% 50 ML IVPB SCH (12:27)
[2022-01-17] MEDS: LACTATED RINGERS 1,000 ML IV SCH (12:28)
--- NOTE | 2022-01-17 12:28 | P.PN ---
Subjective Patient is seen in follow-up for acute kidney injury and renal transplant management. Renal function stable. No difficulty with urination. No vomiting or diarrhea. Oral intake is fair. Hemodynamically stable. Receiving IV fluids. no active complaints. no changes overnight. Serum creatinine staying at about 2.8 mg/dL Good urine output Objective - Vital Signs Vital signs: Vital Signs Temp 98 F 01/17/22 08:00 Pulse 92 01/17/22 08:00 Resp 16 01/17/22 08:00 BP 131/72 01/17/22 08:00 Pulse Ox 95 01/17/22 08:00 FiO2 Intake & Output 01/16/22 01/17/22 01/17/22 18:59 06:59 18:59 Output Total 400 Balance -400 Output: Urine 400 Other: Voiding Method Toilet Urinal - Exam Patient is awake, comfortable, not in any acute distress Examination of the heart S1 and S2 Examination of the lungs bilateral breath sounds are heard Abdomen is soft nontender Examination lower extremity shows no significant edema 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 Acute allograft dysfunction secondary to ATN secondary to severe sepsis. Creatinine peaked at 3.38 at this admission - fairly stable at 2.95 today. Baseline creatinine near 1 from November 2021. No hydronephrosis noted on ultrasound. urine eosinophils negative. 2. Status post simultaneous kidney pancreas transplant from [address] [facility]. 3. Left diabetic foot ulcer/osteomyelitis on antibiotics. ID following. Also been followed by wound care. 4. Metabolic acidosis secondary to acute kidney injury. s/p bicarb drip. Improved. 5. Anemia of chronic kidney disease. Iron deficiency noted. Status post IV iron. On Aranesp. 6. Hypertension with chronic kidney disease. controlled. 7. Hypomagnesemia from poor intake and CNI induced magnesium losses. replaced. On oral magnesium oxide. Better. 8. Hypokalemia from poor intake. better. Plan: Continue current immunosuppressive therapy. Prograf was restarted on 01/12/2022 when level was less than 1.5. Continue current antihypertensive regimen Antibiotics as per ID Encouraged to increase oral intake
--- NOTE | 2022-01-17 12:35 | P.PN ---
Subjective Progress Note Date: 01/17/22 Principal diagnosis: Fever Patient is a 61 year old male with a past medical history is taken for renal transplant on immunosuppressive medication recently admitted to this facility for left foot wound underlying osteomyelitis and bacteremia for the patient was treated with cefepime and Flagyl subsequently presented to the hospital with new fever and increasing shortness of breath. Patient has been evaluated by vascular surgery recommended no debridement and have consented the wound care, ultrasound of the transplant kidney did not show any hydronephrosis On today's evaluation that is 01/17/2022, the patient remains to be afebrile the patient is breathing comfortably on room air, the patient denies chest pain or shortness of breath or cough , the patient denies abdominal pain and no diarrhea, the patient denies pain to the left foot, patient with no new symptom overall feeling better Objective - Vital Signs Vital signs: Vital Signs Temp 98 F 01/17/22 08:00 Pulse 92 01/17/22 08:00 Resp 16 01/17/22 08:00 BP 131/72 01/17/22 08:00 Pulse Ox 95 01/17/22 08:00 FiO2 Intake & Output 01/16/22 01/17/22 01/17/22 18:59 06:59 18:59 Output Total 400 Balance -400 Output: Urine 400 Other: Voiding Method Toilet Urinal - Exam GENERAL DESCRIPTION: A middle-age male lying in bed in no distress RESPIRATORY SYSTEM: Unlabored breathing , decreased breath sounds at bases HEART: S1 S2 regular rate and rhythm , ABDOMEN: Soft , no tenderness EXTREMITIES: Left foot wound is currently dressed no drainage on the dressing - Labs CBC & Chem 7: 01/17/22 04:50 01/17/22 04:50 Labs: Abnormal Lab Results - Last 24 Hours (Table) 01/17/22 01/17/22 Range/Units 04:50 04:50 WBC 11.9 H (3.8-10.6) k/uL RBC 3.05 L (4.30-5.90) m/uL Hgb 9.0 L (13.0-17.5) gm/dL Hct 28.5 L (39.0-53.0) % RDW 17.1 H (11.5-15.5) % Plt Count 488 H (150-450) k/uL Sodium 134 L (137-145) mmol/L BUN 32 H (9-20) mg/dL Creatinine 2.82 H (0.66-1.25) mg/dL Calcium 8.0 L (8.4-10.2) mg/dL Assessment and Plan (1) Diabetic foot ulcers Current Visit: Yes Status: Acute Code(s): E11.621 - TYPE 2 DIABETES MELLITUS WITH FOOT ULCER SNOMED Code(s): 359240628 (2) Fever Current Visit: Yes Status: Acute Code(s): R50.9 - FEVER, UNSPECIFIED SNOMED Code(s): 185834832 Plan: 1patient presented to hospital with sepsis and respiratory have fever elevated white count with a source possible left diabetic foot ulcer this patient currently being treated for osteomyelitis of the left foot with local culture positive for Klebsiella and MSSA and the patient did have MSSA bacteremia about a month ago now with new fever and white count question of PICC line infection as the patient left foot wound seems to be healing well and there was no evidence of any cellulitis or any purulent drainage clinically patient abdominal soft clinical examination chest is clear to auscultation and urine was negative. 2 patient fever has resolved and culture has been negative , patient kidney function slowly clinical improvement, patient to continue with daptomycin and oral Flagyl and continue supportive care Time with Patient: Less than 30
[2022-01-17] MEDS: QUEtiapine 25 MG TAB PO SCH (22:25)
[2022-01-17] MEDS: MELATONIN 3 MG TABLET PO SCH (22:25)
[2022-01-17] MEDS: GABAPENTIN 300 MG CAP PO SCH (22:26)
[2022-01-17] MEDS: LATANOPROST 0.005% OPHTH DROPS 2.5 ML BTL BOTH EYES SCH (22:28)
[2022-01-18] MEDS: LACTATED RINGERS 1,000 ML IV SCH ×2 (03:03→12:41)
[2022-01-18] MEDS: TACROLIMUS 1 MG CAP PO SCH ×2 (09:34→21:06)
[2022-01-18] MEDS: ASPIRIN 81 MG PO SCH (09:34)
[2022-01-18] MEDS: MAGNESIUM OXIDE 400 MG TAB PO SCH (09:34)
[2022-01-18] MEDS: carvediloL 6.25 MG TAB PO SCH ×2 (09:34→21:04)
[2022-01-18] MEDS: hydrALAZINE HCL 25 MG TAB PO SCH ×3 (09:34→21:00)
[2022-01-18] MEDS: MULTIVITAMINS, THERA 1 EACH TAB PO SCH (09:34)
[2022-01-18] MEDS: HEPARIN SODIUM,PORCINE/PF 5,000 UNIT/0.5 ML SYRINGE SQ SCH ×2 (09:34→17:01)
[2022-01-18] MEDS: metroNIDAZOLE 500 MG TAB PO SCH ×3 (09:34→21:04)
[2022-01-18] MEDS: predniSONE 5 MG TAB PO SCH (09:34)
[2022-01-18] MEDS: NON FORMULARY DRUG (Brimonidine Tartrate/Timolol [Combigan 0.2%-0.5% Eye Drops] 5 ML Ml) BOTH EYES SCH (09:35)
[2022-01-18] MEDS: DORZOLAMIDE HCL 2% DROPS 10 ML BTL LEFT EYE SCH ×2 (09:35→21:07)
[2022-01-18 10:28] LABS: Anisocytosis Slight; HCT 29.3 % (39.0-53.0); Hypochromasia Marked; MCH 29.6 pg (25.0-35.0); MCHC 30.6 g/dL (31.0-37.0); MCV 96.9 fL (80.0-100.0); Macrocytosis Slight; Mean Platelet Volume 7.8; Platelet Count 488 k/uL (150-450); RBC 3.03 m/uL (4.30-5.90); RDW 17.4 % (11.5-15.5); WBC 10.3 k/uL (3.8-10.6)
[2022-01-18 11:04] LABS: African American GFR (CKD) 30 (>60 ml/min/1.73 sqM); Anion Gap 10 mmol/L; Blood Urea Nitrogen 29 mg/dL (9-20); Carbon Dioxide 22 mmol/L (22-30); Chloride 106 mmol/L (98-107); Glucose 81 mg/dL (74-99); Non-African American GFR(CKD) 26 (>60 ml/min/1.73 sqM); Potassium 4.4 mmol/L (3.5-5.1); Sodium 138 mmol/L (137-145)
[2022-01-18 11:58] LABS: Glucose,Whole Blood 103 mg/dL (70-110)
--- NOTE | 2022-01-18 12:29 | P.PN ---
Subjective Patient is seen in follow-up for acute kidney injury and renal transplant management. Renal function has worsened from baseline but stable for the last 2 days and actually down to 2.6 today. No difficulty with urination. No vomiting or diarrhea. Oral intake is fair. Hemodynamically stable. Receiving IV fluids. no active complaints. no changes overnight. Serum creatinine staying at about 2.6 mg/dL Good urine output Objective - Vital Signs Vital signs: Vital Signs Temp 98 F 01/18/22 08:00 Pulse 90 01/18/22 08:00 Resp 16 01/18/22 08:00 BP 134/67 01/18/22 08:00 Pulse Ox 95 01/18/22 08:00 FiO2 Intake & Output 01/17/22 01/18/22 01/18/22 18:59 06:59 18:59 Intake Total 850 Output Total 550 1280 Balance 300 -1280 Intake: Intake, IV Titration 850 Amount DAPTOmycin 350 mg In 100 Sodium Chloride 0.9% 50 ml @ 100 mls/hr IVPB Q48H MARYLIN Rx#:[id number] Lactated Ringers 1,000 ml 750 @ 75 mls/hr IV .[id number] MARYLIN Rx#:[id number] Output: Urine 550 1280 Other: Voiding Method Toilet Urinal # Bowel Movements 1 - Exam Patient is awake, comfortable, not in any acute distress Abdomen is soft nontender Examination lower extremity shows no significant edema [employer]OR exam grossly intact - Labs CBC & Chem 7: 01/18/22 06:44 01/18/22 06:44 Labs: Abnormal Lab Results - Last 24 Hours (Table) 01/18/22 01/18/22 01/18/22 Range/Units 06:44 06:44 06:44 RBC 3.03 L (4.30-5.90) m/uL Hgb 9.0 L (13.0-17.5) gm/dL Hct 29.3 L (39.0-53.0) % MCHC 30.6 L (31.0-37.0) g/dL RDW 17.4 H (11.5-15.5) % Plt Count 488 H (150-450) k/uL ESR 91 H (0-20) mm/Hr BUN (9-20) mg/dL Creatinine (0.66-1.25) mg/dL Calcium (8.4-10.2) mg/dL C-Reactive Protein 3.10 H (0.00-0.80) mg/dL 01/18/22 Range/Units 06:44 RBC (4.30-5.90) m/uL Hgb (13.0-17.5) gm/dL Hct (39.0-53.0) % MCHC (31.0-37.0) g/dL RDW (11.5-15.5) % Plt Count (150-450) k/uL ESR (0-20) mm/Hr BUN 29 H (9-20) mg/dL Creatinine 2.60 H (0.66-1.25) mg/dL Calcium 8.0 L (8.4-10.2) mg/dL C-Reactive Protein (0.00-0.80) mg/dL Assessment and Plan Assessment: 1. Acute allograft dysfunction secondary to ATN secondary to severe sepsis. Creatinine peaked at 3.38 at this admission - slowly improving and creatinine down to 2.6 today. Baseline creatinine near 1 from November 2021. No hydronephrosis noted on ultrasound. urine eosinophils negative. 2. Status post simultaneous kidney pancreas transplant from 1997 done at [facility]. Tacrolimus level was 4.6 on 01/09/2022 and repeat level was less than 1.5 vent Prograf was held temporarily and most recent level on 01/15/2022 was 7.0. Blood sugars staying at a 81-92 mg/dL. 3. Left diabetic foot ulcer/osteomyelitis on antibiotics. ID following. Also been followed by wound care. Maintained on daptomycin. Previous history of MSSA bacteremia and wound infection in October 2021 4. Metabolic acidosis secondary to acute kidney injury. s/p bicarb drip. Improved. 5. Anemia of chronic kidney disease. Iron deficiency noted. Status post IV iron. On Aranesp. 6. Hypertension with chronic kidney disease. controlled. 7. Hypomagnesemia from poor intake and CNI induced magnesium losses. replaced. On oral magnesium oxide. Better. 8. Hypokalemia from poor intake. better. Plan: Continue current immunosuppressive therapy. Prograf was restarted on 01/12/2022 when level was less than 1.5. Continue current antihypertensive regimen Antibiotics as per ID Encouraged to increase oral intake Okay to discharge from nephrology standpoint. Patient will follow-up in the office at the transplant clinic on this Monday. His case will be discussed with transplant belt brander as well for possible need for kidney biopsy.
--- NOTE | 2022-01-18 14:35 | P.PN ---
Subjective Progress Note Date: 01/18/22 Patient is a 61-year-old male who is status post renal and pancreatic transplant in 1997 from [facility] for diabetes and ESRD, neuropathy, peripheral vascular disease, skin cancer and recent diagnosis and treatment of staph aureus bacteremia and osteomyelitis of left foot. Patient recently hospitalized for staph aureus bacteremia and osteomyelitis of left foot from 12/07/21 through 12/15. Patient was discharged to alf facility for 5 more weeks of IV antibiotics with cefepime and flagyl. Extended care facility sent patient back to the ED on 01/09/22 secondary to fever and reports of increased pain to left foot. He was found to be febrile with a temp of 101, WBC count of 13.6, and an acute kidney injury with BUN of 39, creatinine 2.33, and GFR of 30 with baseline creatinine of 0.9. Urinalysis negative for infection. Patient started on IV antibiotics vancomycin and admitted with infectious disease and nephrology consults. Renal ultrasound revealing renal transplant noted with multiple cysts the largest measuring 6.4 cm, no hydronephrosis or nephrolithiasis. Repeat x-ray left foot revealing a new erosion of the lateral aspect of the cuboidal bone consistent with osteomyelitis measuring 10 mm. Vascular surgery consulted no plans for surgery at this time. Due to worsening renal function he was transitioned from vanco to dapto. He developed an acidosis and nephrology started him on Bicarb gtt, his tacrolimus level came back low at 4.6. He was resumed on Tacro. His renal function continued to worsen and nephrology recommended transfer to a renal transplant center on 01/12. He was accepted at [facility] by Dr. Valentin on 01/12 and patient is currently awaiting bed. His renal failure began to improve on 01/15/22. He developed swelling of his right arm on 01/16 at a site of old IV. Ultrasound revealed superficial thrombophlebitis. He was not accepted at [facility]. [facility] had no beds available. Awaiting bed at [facility]. Patient seen and examined at bedside. DOing well. No complaints. No nasuea. No diarrhea. General: nontoxic, no distress, appears at stated age Derm: warm, dry, dressing in place over the left foot, Right fore arm with swelling- no erythema or warmth Head: atraumatic, normocephalic, symmetric Eyes: EOMI, no lid lag, anicteric sclera Mouth: no lip lesion, mucus membranes moist Cardiovascular: S1S2 reg, no murmur, positive posterior tibial pulse bilateral, Lungs: Decrease bs bilateral, no rhonchi, no rales , no accessory muscle use Abdominal: soft, nontender to palpation, no guarding, no appreciable organomegaly Ext: no gross muscle atrophy, trace edema, no contractures Neuro: CN II-XI grossly intact, no focal neuro deficits Psych: Alert, oriented, appropriate affect Assessment: Sepsis secondary to Osteomyelitis of left foot resulting from nonhealing/infected diabetic ulcer left foot plantar region Superficial thrombophlebitis right forearm Thrombocytosis, suspect reactive Acute kidney injury, status post renal transplant Hypokalemia, resolved Recent treatment of staph aureus bacteremia Hypomagnesemia Iron deficiency anemia Peripheral vascular disease Neuropathy Plan: LR Follow CBC Alternate heat and cold on right arm- discussed with nursing Monitor renal function Prednisone, Tacro, MMF 2s/p IV iron X 3 Hold ARB Continue with Dapto and Flagyl will complete therapy on 02/20. ID and nephrology following. D/W nephrology in detail, with improving renal function patient is now stable to discharge with outpatient follow-up. Dr. An has arranged for follow-up with transplant on monday from [facility] and then will discuss with if need biopsy. CM will arrange for auth and transport back to [facility] tomorrow. Plan is D/W in AM. Will need to complete IV on 02/20. CM to follow-up with wound care on walking boot. Active Medications Generic Name Dose Route Start Last Admin Trade Name Freq PRN Reason Stop Dose Admin Acetaminophen 650 mg 01/09/22 13:59 Acetaminophen Tab 325 Mg Tab PO Q6H PRN Pain Aspirin 81 mg 01/10/22 09:00 01/18/22 09:34 Aspirin 81 Mg PO 81 mg DAILY [facility] Administration Calcium Carbonate/Glycine 500 mg 01/09/22 13:59 Calcium Carbonate 500 Mg Chewable PO TID PRN Heartburn Carvedilol 6.25 mg 01/09/22 21:00 01/18/22 09:34 Carvedilol 6.25 Mg Tab PO 6.25 mg BID [facility] Administration Darbepoetin Eitan 40 mcg 01/13/22 12:00 01/13/22 12:27 Darbepoetin Eitan 40 Mcg/0.4 Ml Syringe SQ 40 mcg Q7D [facility] Administration Dorzolamide HCl 1 drops 01/09/22 21:00 01/18/22 09:35 Dorzolamide Hcl 2% Drops 10 Ml Btl LEFT EYE 1 drops BID [facility] Administration Gabapentin 300 mg 01/09/22 21:00 01/17/22 22:26 Gabapentin 300 Mg Cap PO 300 mg HS [facility] Administration Heparin Sodium (Porcine) 5,000 unit 01/09/22 16:15 01/18/22 09:34 Heparin Sodium,Porcine/Pf 5,000 Unit/0.5 Ml Syringe SQ 5,000 unit Q8HR [facility] Administration Hydralazine HCl 25 mg 01/14/22 11:30 01/18/22 09:34 Hydralazine Hcl 25 Mg Tab PO 25 mg TID [facility] Administration Lactated Ringer's 1,000 mls @ 75 mls/hr 01/13/22 11:00 01/18/22 12:41 Lactated Ringers IV 75 mls/hr .[id number] [facility] Administration Daptomycin 350 mg/ Sodium 50 mls @ 100 mls/hr 01/17/22 12:00 01/17/22 12:27 Chloride IVPB 100 mls/hr Q48H [facility] Administration Protocol Latanoprost 1 drops 01/09/22 21:00 01/17/22 22:28 Latanoprost 0.005% Ophth Drops 2.5 Ml Btl BOTH EYES 1 drops HS [facility] Administration Magnesium Oxide 400 mg 01/15/22 09:00 01/18/22 09:34 Magnesium Oxide 400 Mg Tab PO 400 mg DAILY [facility] Administration Melatonin 3 mg 01/09/22 21:00 01/17/22 22:25 Melatonin 3 Mg Tablet PO 3 mg HS [facility] Administration Metronidazole 500 mg 01/17/22 09:00 01/18/22 09:34 Metronidazole 500 Mg Tab PO 500 mg TID [facility] Administration Protocol Morphine Sulfate 4 mg 01/09/22 04:34 Morphine Sulfate 4 Mg/Ml Syringe IV Q4HR PRN Severe Pain (Scale 7 to 10) Multivitamins 1 each 01/09/22 14:15 01/18/22 09:34 Multivitamins, Thera 1 Each Tab PO 1 each DAILY [facility] Administration Mycophenolate Mofetil 500 mg 01/09/22 21:00 01/18/22 09:34 Mycophenolate Mofetil 500 Mg Tab PO 500 mg BID [facility] Administration Naloxone HCl 0.2 mg 01/09/22 04:34 Naloxone 0.4 Mg/Ml 1 Ml Vial IV Q2M PRN Opioid Reversal Nifedipine 60 mg 01/09/22 14:15 01/18/22 09:34 Nifedipine Xl 60 Mg Tab.Er.24 PO 60 mg BID [facility] Administration Non-Formulary Medication 1 drop 01/09/22 21:00 01/18/22 09:35 Brimonidine Tartrate/Timolol [Combigan 0.2%-0.5% Eye Drops] BOTH EYES Not Given BID [facility] Prednisone 5 mg 01/09/22 14:15 01/18/22 09:34 Prednisone 5 Mg Tab PO 5 mg DAILY [facility] Administration Quetiapine Fumarate 12.5 mg 01/12/22 21:00 01/17/22 22:25 Quetiapine 25 Mg Tab PO 12.5 mg HS [facility] Administration Tacrolimus 1 mg 01/12/22 09:00 01/18/22 09:34 Tacrolimus 1 Mg Cap PO 1 mg BID [facility] Administration Objective - Vital Signs Vital signs: Vital Signs Temp 98 F 01/18/22 08:00 Pulse 90 01/18/22 08:00 Resp 16 01/18/22 08:00 BP 134/67 01/18/22 08:00 Pulse Ox 95 01/18/22 08:00 FiO2 Intake & Output 01/17/22 01/18/22 01/18/22 18:59 06:59 18:59 Intake Total 850 Output Total 550 1280 Balance 300 -1280 Intake: Intake, IV Titration 850 Amount DAPTOmycin 350 mg In 100 Sodium Chloride 0.9% 50 ml @ 100 mls/hr IVPB Q48H [facility] Rx#:[id number] Lactated Ringers 1,000 ml 750 @ 75 mls/hr IV .[id number] [facility] Rx#:[id number] Output: Urine 550 1280 Other: Voiding Method Toilet Urinal # Bowel Movements 1 - Labs CBC & Chem 7: 01/18/22 06:44 01/18/22 06:44 Labs: Abnormal Lab Results - Last 24 Hours (Table) 01/18/22 01/18/22 01/18/22 Range/Units 06:44 06:44 06:44 RBC 3.03 L (4.30-5.90) m/uL Hgb 9.0 L (13.0-17.5) gm/dL Hct 29.3 L (39.0-53.0) % MCHC 30.6 L (31.0-37.0) g/dL RDW 17.4 H (11.5-15.5) % Plt Count 488 H (150-450) k/uL ESR 91 H (0-20) mm/Hr BUN (9-20) mg/dL Creatinine (0.66-1.25) mg/dL Calcium (8.4-10.2) mg/dL C-Reactive Protein 3.10 H (0.00-0.80) mg/dL 01/18/22 Range/Units 06:44 RBC (4.30-5.90) m/uL Hgb (13.0-17.5) gm/dL Hct (39.0-53.0) % MCHC (31.0-37.0) g/dL RDW (11.5-15.5) % Plt Count (150-450) k/uL ESR (0-20) mm/Hr BUN 29 H (9-20) mg/dL Creatinine 2.60 H (0.66-1.25) mg/dL Calcium 8.0 L (8.4-10.2) mg/dL C-Reactive Protein (0.00-0.80) mg/dL
[2022-01-18 17:15] LABS: Glucose,Whole Blood 148 mg/dL (70-110)
[2022-01-18] MEDS: QUEtiapine 25 MG TAB PO SCH (21:00)
[2022-01-18] MEDS: GABAPENTIN 300 MG CAP PO SCH (21:04)
[2022-01-18] MEDS: MELATONIN 3 MG TABLET PO SCH (21:04)
[2022-01-18] MEDS: LATANOPROST 0.005% OPHTH DROPS 2.5 ML BTL BOTH EYES SCH (21:07)
[2022-01-19] MEDS: NON FORMULARY DRUG (Brimonidine Tartrate/Timolol [Combigan 0.2%-0.5% Eye Drops] 5 ML Ml) BOTH EYES SCH ×2 (00:24→09:18)
[2022-01-19] MEDS: HEPARIN SODIUM,PORCINE/PF 5,000 UNIT/0.5 ML SYRINGE SQ SCH ×3 (03:30→16:06)
[2022-01-19] MEDS: LACTATED RINGERS 1,000 ML IV SCH ×2 (03:31→15:45)
[2022-01-19 09:04] VITALS: BP 128/67; PULSE 92; TEMP 98.3
[2022-01-19] MEDS: ASPIRIN 81 MG PO SCH (09:13)
[2022-01-19] MEDS: hydrALAZINE HCL 25 MG TAB PO SCH ×2 (09:13→16:06)
[2022-01-19] MEDS: carvediloL 6.25 MG TAB PO SCH (09:13)
[2022-01-19] MEDS: metroNIDAZOLE 500 MG TAB PO SCH ×2 (09:13→16:06)
[2022-01-19] MEDS: MULTIVITAMINS, THERA 1 EACH TAB PO SCH (09:13)
[2022-01-19] MEDS: predniSONE 5 MG TAB PO SCH (09:14)
[2022-01-19] MEDS: TACROLIMUS 1 MG CAP PO SCH (09:15)
[2022-01-19] MEDS: DORZOLAMIDE HCL 2% DROPS 10 ML BTL LEFT EYE SCH (09:16)
[2022-01-19] MEDS: MAGNESIUM OXIDE 400 MG TAB PO SCH (09:18)
--- NOTE | 2022-01-19 09:28 | P.DS ---
Providers Date of admission: 01/09/22 04:34 Expected date of discharge: 01/19/22 Attending physician: Abraham Nino MD Consults: 01/09/22 04:34 Consult Physician Routine Consulting Provider: Carlos Sow Consult Reason/Comments: osteo Do you want consulting provider notified?: Yes 01/09/22 08:50 Consult Physician Urgent Consulting Provider: Flaquito Shane Consult Reason/Comments: ANA w/ hx of renal and pancrease transplant Do you want consulting provider notified?: Yes Primary care physician: Devon Brand MD Hospital Course: Discharge Diagnosis: Sepsis secondary to Osteomyelitis of left foot resulting from nonhealing/infected diabetic ulcer left foot plantar region. Patient to continue to follow up outpatient with wound care clinic and infectious disease. He will need to continue with IV antibiotic :Dapto and oral antibiotic Flagyl with completion of therapy on 02/20. Superficial thrombophlebitis right forearm. Alternate heat and cold packs on right arm. Thrombocytosis, suspect reactive Acute kidney injury, status post renal transplant. Pt is now stable for discharge and to follow up outpatient with renal transplant team. Dr. An- Validation Intern has arranged for follow-up with transplant team on Monday, at 12p from [facility] office and they will discuss with [facility] if they feel you will need a renal biopsy. Hypokalemia, resolved Recent treatment of staph aureus bacteremia. Pt will need to continue with IV antibiotic :Dapto and oral antibiotic Flagyl with completion of therapy on 02/20. Hypomagnesemia, replaced Iron deficiency anemia, stable with Hgb 9.0 upon discharge. Peripheral vascular disease, continue to follow up outpatient with vascular surgery. Neuropathy, continue Neurontin 300 mg nightly. Hospital Course: Patient is a 61-year-old male who is status post renal and pancreatic transplant in 1997 from [facility] for diabetes and ESRD, neuropathy, peripheral vascular disease, skin cancer and recent diagnosis and treatment of staph aureus bacteremia and osteomyelitis of left foot. Patient recently hospitalized for staph aureus bacteremia and osteomyelitis of left foot from 12/07/21 through 12/15/21. [facility] of IV antibiotics with cefepime and flagyl. Extended care facility sent patient back to the ED on 01/09/22 secondary to fever and reports of increased pain to left foot. At that time, pt was found to be febrile with a temp of 101, WBC count of 13.6, and an acute kidney injury with BUN of 39, creatinine 2.33, and GFR of 30 with baseline creatinine of 0.9. Urinalysis negative for infection. Patient was started on IV antibiotics vancomycin and admitted with infectious disease and nephrology consults. Renal ultrasound revealing renal transplant noted with multiple cysts the largest measuring 6.4 cm, no hydronephrosis or nephrolithiasis. Repeat x-ray left foot revealing a new erosion of the lateral aspect of the cuboidal bone consistent with osteomyelitis measuring 10 mm. Vascular surgery consulted no plans for surgery at this time. Due to worsening renal function he was transitioned from vanco to dapto. He developed an acidosis and nephrology started him on Bicarb gtt, his tacrolimus level came back low at 4.6. He was resumed on Tacro. His renal function continued to worsen and nephrology recommended transfer to a renal transplant center on 01/12. He was accepted at [facility] by Dr. Valentin on 01/12 and patient is currently awaiting bed. His renal failure began to improve on 01/15/22. Pt later developed swelling of his right arm on 01/16 at a site of old IV. Ultrasound revealed superficial thrombophlebitis. Pt was not accepted at [facility]. [facility] had no beds available. and we were awaiting bed at [facility]. As pt overall showed improvement and after detailed discussion with nephrology and infectious disease, patient felt to be stable for discharge and to follow up outpatient with renal transplant team. Dr. An-Validation Intern has arranged for follow-up with transplant team on at 12p from [facility] office and they will discuss with [facility] if they feel you will need a renal biopsy. Patient will also need to follow up outpatient with wound care clinic and infectious disease. He will need to continue with IV antibiotic :Dapto and oral antibiotic Flagyl with completion of therapy on 02/20. Patient has been accepted back to [facility] and is stable for discharge at this time. Physical examination: General: nontoxic, no distress, appears at stated age Derm: warm, dry, dressing in place over the left foot, Right fore arm with swelling- no erythema or warmth Head: atraumatic, normocephalic, symmetric Eyes: EOMI, no lid lag, anicteric sclera Mouth: no lip lesion, mucus membranes moist Cardiovascular: S1S2 reg, no murmur, positive posterior tibial pulse bilateral, Lungs: Decrease bs bilateral, no rhonchi, no rales , no accessory muscle use Abdominal: soft, nontender to palpation, no guarding, no appreciable organome ced Ext: no gross muscle atrophy, trace edema, no contractures. Neuro: CN II-XI grossly intact, no focal neuro deficits Psych: Alert, oriented, appropriate affect A total of 39 minutes of time were spent preparing this complex discharge summary. Pt was discharged on 01/19/22 at 9:24 AM Patient Condition at Discharge: Stable Plan - Discharge Summary New Discharge Prescriptions: New QUEtiapine [SEROquel] 12.5 mg PO HS tab hydrALAZINE HCL [Apresoline] 25 mg PO TID tab Darbepoetin Eitan [Aranesp] 40 mcg SQ Q7D each Magnesium Oxide [Mag-Ox] 400 mg PO DAILY tab DAPTOmycin 350 mg IV Q48H #35 each metroNIDAZOLE [Flagyl] 500 mg PO TID #90 tab Continue predniSONE 5 mg PO DAILY mycophenolate mofetiL [Cellcept] 500 mg PO BID Aspirin 81 mg PO DAILY Multivitamin [Men's Multi-Vitamin] 1 tab PO DAILY Tacrolimus [Prograf] 1 mg PO BID Dorzolamide 2% [Trusopt 2%] 1 drop LEFT EYE BID Cholecalciferol [Vitamin D3 (25 Mcg = 1000 Iu)] 25 mcg PO DAILY Folic Acid 1 mg PO DAILY carvediloL [Coreg] 6.25 mg PO BID Brimonidine Tartrate/Timolol [Combigan 0.2%-0.5% Eye Drops] 1 drop BOTH EYES BID Heparin Lock Flush Solution 10 Units/Ml 30 units IV Q8H Gabapentin 300 mg PO HS #3 cap Calcium Carbonate [Tums] 500 mg PO TID PRN PRN Reason: Heartburn NIFEdipine XL [Procardia XL] 60 mg PO BID Acetaminophen [Tylenol 8 Hour] 650 mg PO Q6H PRN PRN Reason: Pain Latanoprost/Pf [Latanoprost 0.005% Eye Drop] 1 drop BOTH EYES HS Melatonin 3 mg PO HS Discontinued Lovastatin [Mevacor] 20 mg PO HS Enalapril [Vasotec] 20 mg PO HS Sodium Polystyrene Sulfonate [Kayexalate] 15 gm PO Q14D Cefepime [Maxipime] 2 gm IVPB Q8HR 35 Days #105 each Discharge Medication List Aspirin 81 mg PO DAILY 09/27/13 [History] Multivitamin [Men's Multi-Vitamin] 1 tab PO DAILY 09/27/13 [History] mycophenolate mofetiL [Cellcept] 500 mg PO BID 09/27/13 [History] predniSONE 5 mg PO DAILY 09/27/13 [History] Tacrolimus [Prograf] 1 mg PO BID 01/03/14 [History] Cholecalciferol [Vitamin D3 (25 Mcg = 1000 Iu)] 25 mcg PO DAILY 12/02/14 [History] Dorzolamide 2% [Trusopt 2%] 1 drop LEFT EYE BID 12/02/14 [History] Folic Acid 1 mg PO DAILY 10/20/17 [History] carvediloL [Coreg] 6.25 mg PO BID 02/15/18 [History] Brimonidine Tartrate/Timolol [Combigan 0.2%-0.5% Eye Drops] 1 drop BOTH EYES BID 11/25/21 [History] Calcium Carbonate [Tums] 500 mg PO TID PRN 11/25/21 [History] NIFEdipine XL [Procardia XL] 60 mg PO BID 11/25/21 [History] Acetaminophen [Tylenol 8 Hour] 650 mg PO Q6H PRN 01/09/22 [History] Heparin Lock Flush Solution 10 Units/Ml 30 units IV Q8H 01/09/22 [History] Latanoprost/Pf [Latanoprost 0.005% Eye Drop] 1 drop BOTH EYES HS 01/09/22 [History] Melatonin 3 mg PO HS 01/09/22 [History] DAPTOmycin 350 mg IV Q48H #35 each 01/19/22 [Rx] Darbepoetin Eitan [Aranesp] 40 mcg SQ Q7D each 01/19/22 [Rx] Gabapentin 300 mg PO HS #3 cap 01/19/22 [Rx] Magnesium Oxide [Mag-Ox] 400 mg PO DAILY tab 01/19/22 [Rx] QUEtiapine [SEROquel] 12.5 mg PO HS tab 01/19/22 [Rx] hydrALAZINE HCL [Apresoline] 25 mg PO TID tab 01/19/22 [Rx] metroNIDAZOLE [Flagyl] 500 mg PO TID #90 tab 01/19/22 [Rx] Follow up Appointment(s)/Referral(s): Devon Brand MD [Primary Care Provider] - 1-2 days [facility], [NON-STAFF] - [facility] [NON-STAFF] - 01/25/22 9:00 am Carlos Sow MD [STAFF PHYSICIAN] - 1 Week Activity/Diet/Wound Care/Special Instructions: Activity: As tolerated. Take breaks as needed. Diet: Heart healthy and carb consistent diet. Avoid salts, or foods with hidden salts such as canned or boxed foods and frozen dinners. Extra salt makes your heart work harder and traps the fluid in your body for longer. Special Instructions: Take all of your medications as directed and remember to keep all of your doctor's appointments and follow-up as needed. You will need to continue with IV antibiotics:Dapto and Flagyl will complete therapy on 02/20. You are now stable for discharge with outpatient follow-up with renal transplant team. Dr. An has arranged for follow-up with transplant team on at 12p from [facility] office and they will discuss with [facility] if they feel you will need a renal biopsy. Thank you for allowing us to participate in your care, it was truly a pleasure having you for our patient!!! Discharge Disposition: TRANSFER TO SNF/ECF
[2022-01-19] MEDS: DAPTOmycin 350 MG in SODIUM CHLORIDE 0.9% 50 ML IVPB SCH (13:04)
--- NOTE | 2022-01-19 17:34 | P.PN ---
Subjective Patient is seen in follow-up for acute kidney injury and renal transplant management. Renal function has worsened from baseline but stable for the last 2 days and actually down to 2.6 yesterday. No difficulty with urination. No vomiting or diarrhea. Oral intake is fair. Hemodynamically stable. Receiving IV fluids. no active complaints. no changes overnight. Serum creatinine decreased to 2.6 mg/dL Good urine output Objective - Vital Signs Vital signs: Vital Signs Temp 98.3 F 01/19/22 08:00 Pulse 92 01/19/22 08:00 Resp 16 01/19/22 08:00 BP 128/67 01/19/22 08:00 Pulse Ox 95 01/19/22 08:00 FiO2 Intake & Output 01/18/22 01/19/22 01/19/22 18:59 06:59 18:59 Intake Total 600 Output Total 900 Balance 600 -900 Intake: Intake, IV Titration 600 Amount Lactated Ringers 1,000 ml 600 @ 75 mls/hr IV .[id number] [facility] Rx#:[id number] Output: Urine 900 Other: Voiding Method Toilet Urinal - Exam Patient is awake, comfortable, not in any acute distress Lungs are clear CVS S1 and S2 Abdomen is soft nontender Examination lower extremity shows 1+ edema bilateral [employer]M DES[employer]ER exam grossly intact - Labs CBC & Chem 7: 01/18/22 06:44 01/18/22 06:44 Assessment and Plan Assessment: 1. Acute allograft dysfunction secondary to ATN secondary to severe sepsis. Cr eatinine peaked at 3.38 at this admission - slowly improving and creatinine down to 2.6 yesterday. Baseline creatinine near 1 from November 2021. No hydronephrosis noted on ultrasound. urine eosinophils negative. 2. Status post simultaneous kidney pancreas transplant from 1997 done at [facility]. Tacrolimus level was 4.6 on 01/09/2022 and repeat level was less than 1.5 vent Prograf was held temporarily and most recent level on 01/15/2022 was 7.0. Blood sugars staying at a 81-92 mg/dL. 3. Left diabetic foot ulcer/osteomyelitis on antibiotics. ID following. Also been followed by wound care. Maintained on daptomycin. Previous history of MSSA bacteremia and wound infection in October 2021 4. Metabolic acidosis secondary to acute kidney injury. s/p bicarb drip. Improved. 5. Anemia of chronic kidney disease. Iron deficiency noted. Status post IV iron. On Aranesp. 6. Hypertension with chronic kidney disease. controlled. 7. Hypomagnesemia from poor intake and CNI induced magnesium losses. replaced. On oral magnesium oxide. Better. 8. Hypokalemia from poor intake. better. Plan: Continue current immunosuppressive therapy. Prograf was restarted on 01/12/2022 when level was less than 1.5. Continue current antihypertensive regimen Antibiotics as per ID Encouraged to increase oral intake Okay to discharge from nephrology standpoint. Patient will follow-up in the office at [facility] on this Monday. His case has been discussed with transplant general education professor and plan is continue to monitor renal function with possible bx down the road. Hold for now as cr continues to decrease.
== END 2022-01-19 16:22 | DRG 871 ==
LOC: EC 04:02 → 4SSUR 04:34
PROVIDERS: ADMIT Internal Medicine; ATTEND Internal Medicine
DX: A41.01 Sepsis due to Methicillin susceptible Staphylococcus aureus (principal); N17.0 Acute kidney failure with tubular necrosis; N18.6 End stage renal disease; I82.611 Acute embolism and thrombosis of superficial veins of right upper extremity; L03.116 Cellulitis of left lower limb; T80.1XXA Vascular complications following infusion, transfusion and therapeutic injection, initial encounter; D84.821 Immunodeficiency due to drugs; E87.2 Acidosis; I12.0 Hypertensive chronic kidney disease with stage 5 chronic kidney disease or end stage renal disease; Z94.83 Pancreas transplant status; T86.12 Kidney transplant failure; M86.672 Other chronic osteomyelitis, left ankle and foot; E11.42 Type 2 diabetes mellitus with diabetic polyneuropathy; E11.51 Type 2 diabetes mellitus with diabetic peripheral angiopathy without gangrene; E11.621 Type 2 diabetes mellitus with foot ulcer; E11.65 Type 2 diabetes mellitus with hyperglycemia; I70.203 Unspecified atherosclerosis of native arteries of extremities, bilateral legs; D50.9 Iron deficiency anemia, unspecified; F32.A Depression, unspecified; E11.69 Type 2 diabetes mellitus with other specified complication; E11.22 Type 2 diabetes mellitus with diabetic chronic kidney disease; I80.8 Phlebitis and thrombophlebitis of other sites; Y71.1 Therapeutic (nonsurgical) and rehabilitative cardiovascular devices associated with adverse incidents; R65.20 Severe sepsis without septic shock; L97.522 Non-pressure chronic ulcer of other part of left foot with fat layer exposed; E83.42 Hypomagnesemia; D63.1 Anemia in chronic kidney disease; B95.61 Methicillin susceptible Staphylococcus aureus infection as the cause of diseases classified elsewhere; B96.1 Klebsiella pneumoniae [K. pneumoniae] as the cause of diseases classified elsewhere; M21.42 Flat foot [pes planus] (acquired), left foot; N28.1 Cyst of kidney, acquired; D75.838 Other thrombocytosis; E87.6 Hypokalemia; Z79.899 Other long term (current) drug therapy; Z79.82 Long term (current) use of aspirin; Z95.828 Presence of other vascular implants and grafts; Z79.52 Long term (current) use of systemic steroids; Z91.040 Latex allergy status; Z88.0 Allergy status to penicillin; Z86.14 Personal history of Methicillin resistant Staphylococcus aureus infection; Z89.422 Acquired absence of other left toe(s)
CPT/HCPCS: 36415; 51798; 76776; 80048; 80053; 80197; 81001; 83540; 83550; 83605; 83690; 83735; 84100; 84145; 84484; 85025; 85027; 85610; 85652; 85730; 86140; 87040; 87205; 87635; 93005; 93923; 93976; 94760; 96361; 96365; 99285

== ENCOUNTER 2022-02-21 19:01 | Inpatient (IN) | payer MEDICARE, OTHER ==
--- NOTE | 2022-02-21 19:40 | ED ---
SOB HPI <Baron Bailey - Last Filed: 02/21/22 20:42> - General Source: patient, family, RN notes reviewed, old records reviewed Mode of arrival: wheelchair Limitations: no limitations - History of Present Illness MD Complaint: shortness of breath, cough -: days(s) (2) Severity scale (1-10): 3 Context: recent illness Associated Symptoms: fever, cough, lower extremity pain, nausea/vomiting Treatments Prior to Arrival: other (IV antibiotics) <Shakeel Hammonds - Last Filed: 02/21/22 23:43> - General Chief Complaint: Shortness of Breath Stated Complaint: leg edema, sob Time Seen by Provider: 02/21/22 19:15 - History of Present Illness Initial Comments: This is an ill-appearing 61-year-old male that presents dyspneic with complaints of shortness of breath, bilateral leg swelling chills and nausea since yesterday. Patient is currently being treated with outpatient antibiotics via port in the left chest wall for a non-healing left foot plantar ulcer. Discharged from the hospital last month for bacteremia and respiratory failure. Patient states symptoms started suddenly yesterday and have been progressively getting worse. He denies any chest pain or abdominal pain. He does have a history of peripheral vascular disease, kidney and pancreas transplant 1998 at the [facility], neuropathy, osteomyelitis of bilateral feet. He denies a history of cardiac arrhythmias, heart failure or COPD. Mother at bedside states that he has home care twice a week and has been seeing Dr. Guerrero every Monday for continuation of care after discharge. (Shakeel Hammonds) - Related Data Home Medications Medication Instructions Recorded Confirmed Aspirin 81 mg PO DAILY 09/27/13 02/21/22 Multivitamin [Men's Multi-Vitamin] 1 tab PO DAILY 09/27/13 02/21/22 mycophenolate mofetiL [Cellcept] 500 mg PO BID 09/27/13 02/21/22 predniSONE 5 mg PO DAILY 09/27/13 02/21/22 Tacrolimus [Prograf] 1 mg PO BID 01/03/14 02/21/22 Dorzolamide 2% [Trusopt 2%] 1 drop LEFT EYE BID 12/02/14 02/21/22 carvediloL [Coreg] 6.25 mg PO BID 02/15/18 02/21/22 Brimonidine Tartrate/Timolol 1 drop BOTH EYES BID 11/25/21 02/21/22 [Combigan 0.2%-0.5% Eye Drops] Calcium Carbonate [Tums] 500 mg PO TID PRN 11/25/21 02/21/22 NIFEdipine XL [Procardia XL] 60 mg PO BID 11/25/21 02/21/22 Bimatoprost [Lumigan 0.01% Ophth 1 drop RIGHT EYE HS 02/21/22 02/21/22 Soln] Cholecalciferol [Vitamin D3 (25 25 mcg PO DAILY 02/21/22 02/21/22 Mcg = 1000 Iu)] Folic Acid 0.8 mg PO DAILY 02/21/22 02/21/22 Lovastatin [Mevacor] 20 mg PO DIRECTED 02/21/22 02/21/22 Ondansetron [Zofran] 4 mg PO TID PRN 02/21/22 02/21/22 Previous Rx's Medication Instructions Recorded Gabapentin 300 mg PO HS #3 cap 01/19/22 Magnesium Oxide [Mag-Ox] 400 mg PO DAILY tab 01/19/22 hydrALAZINE HCL [Apresoline] 25 mg PO TID tab 01/19/22 Allergies Allergy/AdvReac Type Severity Reaction Status Date / Time latex Allergy Rash/Hives Verified 02/21/22 21:26 Penicillins Allergy Rash/Hives Verified 02/21/22 21:26 Review of Systems ROS Other: All systems not noted in ROS Statement are negative. <Baron Baiely - Last Filed: 02/21/22 20:42> ROS Other: All systems not noted in ROS Statement are negative. <Shakeel Hammonds - Last Filed: 02/21/22 23:43> ROS Statement: Those systems with pertinent positive or pertinent negative responses have been documented in the HPI. Past Medical History Past Medical History: Cancer, Skin Disorder Additional Past Medical History / Comment(s): RT FOOT OPEN AREA, PVD, WAS TX FOR DIABETES UP UNTIL HIS TRANSPLANT(). 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 Past Anesthesia/Blood Transfusion Reactions: No Reported Reaction Past Psychological History: Anxiety Smoking Status: Never smoker Past Alcohol Use History: None Reported Past Drug Use History: None Reported - Past Family History Father Additional Family Medical History / Comment(s): Pt states father of motorcycle accident 1970 Mother Family Medical History: No Reported History <Shakeel Hammonds - Last Filed: 02/21/22 23:43> General Exam Limitations: no limitations General appearance: alert, in no apparent distress Head exam: Present: atraumatic Eye exam: Absent: scleral icterus, conjunctival injection, periorbital tenderness ENT exam: Present: mucous membranes dry (mouth breathing) Neck exam: Absent: tenderness, meningismus Respiratory exam: Present: respiratory distress, rales (Bilateral), accessory muscle use, decreased breath sounds (Right base). Absent: rhonchi, stridor, chest wall tenderness Cardiovascular Exam: Present: tachycardia GI/Abdominal exam: Present: soft. Absent: distended, tenderness, guarding, rebound, rigid Extremities exam: Present: pedal edema (2+ bilateral lower extremities), calf tenderness (Bilateral ) Right Hand Wrist exam: Present: full ROM, swelling. Absent: tenderness Vascular: Present: normal capillary refill, radial pulse. Absent: vascular compromise Left Foot/Toe exam: Present: tenderness (ulcer mid plantar, no erythema and minimal drainage) Back exam: Present: normal inspection. Absent: tenderness, CVA tenderness (R), CVA tenderness (L), rash noted Neurological exam: Present: alert, oriented X3 Psychiatric exam: Present: anxious Skin exam: Present: warm, dry, normal color. Absent: cyanosis, diaphoretic <Shakeel Hammonds - Last Filed: 02/21/22 23:43> Course Vital Signs 02/21/22 02/21/22 02/21/22 19:09 19:22 20:17 Temperature 99.4 F 98.6 F Pulse Rate 105 H 117 H Respiratory 18 26 H Rate Blood Pressure 156/76 153/82 O2 Sat by Pulse 92 L 93 L Oximetry Fraction of Inspired Oxygen (FIO2) 10/02/21/22 02/21/22 20:50 22:14 22:35 Temperature Pulse Rate 106 H 108 H Respiratory Rate Blood Pressure O2 Sat by Pulse Oximetry Fraction of 30 30 Inspired Oxygen (FIO2) 02/21/22 02/21/22 22:45 23:22 Temperature Pulse Rate 90 104 H Respiratory 28 H 17 Rate Blood Pressure 139/73 134/73 O2 Sat by Pulse 97 96 Oximetry Fraction of Inspired Oxygen (FIO2) Medical Decision Making - Lab Data Result diagrams: 02/21/22 20:47 02/21/22 20:46 - EKG Data EKG shows normal: intervals (Ventricular rate 108, QRS 0.93, QTC 0.373; indeterminate axis; multifocal atrial tachycardia) <Shakeel Hammonds - Last Filed: 02/21/22 23:43> - Medical Decision Making Patient presents in respiratory distress with chills, worsening shortness of breath, bilateral lower extremity swelling since yesterday. Was discharged from the hospital last month and is currently taking Flagyl and IV daptomycin daily per his Mom for left nonhealing diabetic plantar ulcer. On review of his records he has a history of acute kidney injury status post renal transplant [address] Helm for end-stage renal disease with renal and pancreatic transplant 1997. He was diagnosed with bacteremia, hypomagnesemia, peripheral vascular disease and neuropathy. Osteomyelitis left foot. Vascular surgery was consulted at last admission with no plans for surgery. Additionally on that admission he did have swelling of his right arm and ultrasound revealed superficial thrombophlebitis. Right arm remain edematous however patient has full range of motion good receiver/laborer strength denies pain. Patient was discharged to assisted facility for 6 weeks of IV antibiotics on January 09. Mom at bedside states he is still continuing antibiotics and she is giving them at 7 PM every night. Today chest x-ray shows congestive heart failure with bilateral pleural effusions, right lower lobe pneumonia. Sepsis bolus and fluids held due to patient's respiratory failure with new onset congestive heart failure and fluid overload. Nursing staff were having a difficult time obtaining IV and blood work. Antibiotics started through mediport after first blood culture drawn from port. He was placed on BiPAP with much improvement in respiratory distress. Oxygen saturation 97%. Labs show a Potassium is 5.6, BUN 38, creatinine 1.44 which is improved from 2.6 on 01/18/22. BNP 6870. Troponin is negative at 0.012. EKG shows showing possible atrial flutter fibrillation versus atrial flutter. This is a new onset and cardiology was consulted. Case discussed with Dr. Bailey and Dr. Lucio, due to improving creatinine and acute heart failure Lasix was given. Calcium gluconate was given per Dr. Nino for hyperkalemia. (Shakeel Hammonds) - Lab Data Lab Results 02/21/22 02/21/22 02/21/22 Range/Units 20:46 20:46 20:46 WBC (3.8-10.6) k/uL RBC (4.30-5.90) m/uL Hgb (13.0-17.5) gm/dL Hct (39.0-53.0) % MCV (80.0-100.0) fL MCH (25.0-35.0) pg MCHC (31.0-37.0) g/dL RDW (11.5-15.5) % Plt Count (150-450) k/uL MPV Neutrophils % (Manual) % Lymphocytes % (Manual) % Monocytes % (Manual) % Neutrophils # (Manual) (1.3-7.7) k/uL Lymphocytes # (Manual) (1.0-4.8) k/uL Monocytes # (Manual) (0-1.0) k/uL Nucleated RBCs (0-0) /100 WBC Manual Slide Review Anisocytosis Anisocytosis (manual) PT 12.0 (9.0-12.0) sec INR 1.1 (<1.2) APTT 29.9 (22.0-30.0) sec Sodium 134 L (137-145) mmol/L Potassium 5.6 H (3.5-5.1) mmol/L Chloride 102 (98-107) mmol/L Carbon Dioxide 21 L (22-30) mmol/L Anion Gap 11 mmol/L BUN 38 H (9-20) mg/dL Creatinine 1.44 H (0.66-1.25) mg/dL Est GFR (CKD-EPI)AfAm 61 (>60 ml/min/1.73 sqM) Est GFR (CKD-EPI)NonAf 53 (>60 ml/min/1.73 sqM) Glucose 138 H (74-99) mg/dL Plasma Lactic Acid Lion 1.0 (0.7-2.0) mmol/L Calcium 8.6 (8.4-10.2) mg/dL Magnesium 2.3 (1.6-2.3) mg/dL Total Bilirubin 0.7 (0.2-1.3) mg/dL AST 27 (17-59) U/L ALT 14 (4-49) U/L Alkaline Phosphatase 88 (38-126) U/L Troponin I (0.000-0.034) ng/mL NT-Pro-B Natriuret Pep pg/mL Total Protein 8.0 (6.3-8.2) g/dL Albumin 3.9 (3.5-5.0) g/dL Coronavirus (PCR) (Not Detectd) 02/21/22 02/21/22 02/21/22 Range/Units 20:46 20:46 20:47 WBC 15.0 H (3.8-10.6) k/uL RBC 3.80 L (4.30-5.90) m/uL Hgb 11.4 L (13.0-17.5) gm/dL Hct 34.6 L (39.0-53.0) % MCV 91.0 D (80.0-100.0) fL MCH 29.9 (25.0-35.0) pg MCHC 32.9 (31.0-37.0) g/dL RDW 17.9 H (11.5-15.5) % Plt Count 466 H (150-450) k/uL MPV 7.1 Neutrophils % (Manual) 78 % Lymphocytes % (Manual) 11 % Monocytes % (Manual) 11 % Neutrophils # (Manual) 11.70 H (1.3-7.7) k/uL Lymphocytes # (Manual) 1.65 (1.0-4.8) k/uL Monocytes # (Manual) 1.65 H (0-1.0) k/uL Nucleated RBCs 0 (0-0) /100 WBC Manual Slide Review Performed Anisocytosis Slight Anisocytosis (manual) Present PT (9.0-12.0) sec INR (<1.2) APTT (22.0-30.0) sec Sodium (137-145) mmol/L Potassium (3.5-5.1) mmol/L Chloride (98-107) mmol/L Carbon Dioxide (22-30) mmol/L Anion Gap mmol/L BUN (9-20) mg/dL Creatinine (0.66-1.25) mg/dL Est GFR (CKD-EPI)AfAm (>60 ml/min/1.73 sqM) Est GFR (CKD-EPI)NonAf (>60 ml/min/1.73 sqM) Glucose (74-99) mg/dL Plasma Lactic Acid Lion (0.7-2.0) mmol/L Calcium (8.4-10.2) mg/dL Magnesium (1.6-2.3) mg/dL Total Bilirubin (0.2-1.3) mg/dL AST (17-59) U/L ALT (4-49) U/L Alkaline Phosphatase (38-126) U/L Troponin I <0.012 (0.000-0.034) ng/mL NT-Pro-B Natriuret Pep 6870 pg/mL Total Protein (6.3-8.2) g/dL Albumin (3.5-5.0) g/dL Coronavirus (PCR) (Not Detectd) 02/21/22 Range/Units 20:57 WBC (3.8-10.6) k/uL RBC (4.30-5.90) m/uL Hgb (13.0-17.5) gm/dL Hct (39.0-53.0) % MCV (80.0-100.0) fL MCH (25.0-35.0) pg MCHC (31.0-37.0) g/dL RDW (11.5-15.5) % Plt Count (150-450) k/uL MPV Neutrophils % (Manual) % Lymphocytes % (Manual) % Monocytes % (Manual) % Neutrophils # (Manual) (1.3-7.7) k/uL Lymphocytes # (Manual) (1.0-4.8) k/uL Monocytes # (Manual) (0-1.0) k/uL Nucleated RBCs (0-0) /100 WBC Manual Slide Review Anisocytosis Anisocytosis (manual) PT (9.0-12.0) sec INR (<1.2) APTT (22.0-30.0) sec Sodium (137-145) mmol/L Potassium (3.5-5.1) mmol/L Chloride (98-107) mmol/L Carbon Dioxide (22-30) mmol/L Anion Gap mmol/L BUN (9-20) mg/dL Creatinine (0.66-1.25) mg/dL Est GFR (CKD-EPI)AfAm (>60 ml/min/1.73 sqM) Est GFR (CKD-EPI)NonAf (>60 ml/min/1.73 sqM) Glucose (74-99) mg/dL Plasma Lactic Acid Lion (0.7-2.0) mmol/L Calcium (8.4-10.2) mg/dL Magnesium (1.6-2.3) mg/dL Total Bilirubin (0.2-1.3) mg/dL AST (17-59) U/L ALT (4-49) U/L Alkaline Phosphatase (38-126) U/L Troponin I (0.000-0.034) ng/mL NT-Pro-B Natriuret Pep pg/mL Total Protein (6.3-8.2) g/dL Albumin (3.5-5.0) g/dL Coronavirus (PCR) Not Detected (Not Detectd) 02/21/22 21:56 Repeat EKG performed read as atrial fibrillation. Ventricular rate 108, QRS 0.81, QTC 0.399. (Shakeel Hammonds) Critical Care Time Critical Care Time: Yes Total Critical Care Time: 35 (Respiratory failure placed on BiPAP) <Shakele Hammonds - Last Filed: 02/21/22 23:43> Disposition <Baron Bailey - Last Filed: 02/21/22 20:42> Decision Date: 02/21/22 Decision Time: 20:22 <Shakeel Hammonds - Last Filed: 02/21/22 23:43> Clinical Impression: Congestive heart failure, Pneumonia, Respiratory failure, Chronic kidney disease Disposition: ADMITTED IP TO THIS HOSP Referrals: Devon Brand MD [Primary Care Provider] - 1-2 days
[2022-02-21] MEDS ORDERED: FUROSEMIDE 10 MG/ML 4 ML VIAL IV STA ×2 (19:41→21:34)
[2022-02-21] MEDS ORDERED: ACETAMINOPHEN TAB 325 MG TAB PO STA (19:48)
--- NOTE | 2022-02-21 19:51 | XR ---
EXAMINATION TYPE: XR chest 2V DATE OF EXAM: 02/21/2022 COMPARISON: 05/15/2018 HISTORY: Short of breath TECHNIQUE: FINDINGS: Heart is enlarged. There is pulmonary vascular congestion. There is left-sided central veno us catheter with tip in the superior vena cava. There is bilateral blunting of the costophrenic angle s and much more on the right side. There is infiltrate right lung base. The bony thorax is intact. IMPRESSION: Congestive heart failure with bilateral pleural effusions. Right lower lobe pneumonia. Ab normalities essentially new compared to old exam.
[2022-02-21] MEDS ORDERED: CEFEPIME 2 GM in SODIUM CHLORIDE 0.9% 100 ML IVPB STA (20:19)
[2022-02-21] MEDS ORDERED: ALBUTEROL NEBULIZED 2.5 MG/3 ML INHALATION STA (20:42)
[2022-02-21] MEDS ORDERED: IPRATROPIUM-ALBUTEROL 3 ML NEB INHALATION STA (20:42)
[2022-02-21 21:01] LABS: Albumin 3.9 g/dL (3.5-5.0); Calcium 8.6 mg/dL (8.4-10.2); Magnesium 2.3 mg/dL (1.6-2.3); Potassium 5.6 mmol/L (3.5-5.1); Total Bilirubin 0.7 mg/dL (0.2-1.3)
[2022-02-21 21:16] LABS: INR 1.1 (<1.2); Partial Thromboplastin Time 29.9 sec (22.0-30.0)
[2022-02-21] MEDS ORDERED: ACETAMINOPHEN TAB 325 MG TAB PO PRN (21:27)
[2022-02-21] MEDS ORDERED: NALOXONE 0.4 MG/ML 1 ML VIAL IV PRN (21:27)
[2022-02-21] MEDS ORDERED: CALCIUM CARBONATE 500 MG CHEWABLE PO PRN (21:34)
[2022-02-21 21:38] LABS: Anisocytosis Slight; HCT 34.6 % (39.0-53.0); HGB 11.4 gm/dL (13.0-17.5); MCH 29.9 pg (25.0-35.0); MCHC 32.9 g/dL (31.0-37.0); Mean Platelet Volume 7.1; Platelet Count 466 k/uL (150-450); RDW 17.9 % (11.5-15.5)
[2022-02-21 22:21] LABS: Anisocytosis (M) Present; Lymphocytes # (M) 1.65 k/uL (1.0-4.8); Monocytes # (M) 1.65 k/uL (0-1.0); Neutrophils % (M) 78 %; Nucleated Red Blood Cells 0 /100 WBC (0-0); Total Cells Counted 100
[2022-02-21] MEDS ORDERED: DAPTOmycin 500 MG in SODIUM CHLORIDE 0.9% 50 ML IVPB ONE (22:30)
--- NOTE | 2022-02-21 23:18 | US ---
EXAMINATION TYPE: US venous doppler duplex LE RT DATE OF EXAM: 02/21/2022 11:03 PM COMPARISON: NONE CLINICAL HISTORY: r/o dvt. right leg edema SIDE PERFORMED: Right TECHNIQUE: The lower extremity deep venous system is examined utilizing real time linear array sonog any with graded compression, doppler sonography and color-flow sonography. VESSELS IMAGED: Femoral Vein Popliteal Vein Small Saphenous Vein * Proximal Calf Veins (* superficial vessels) Right Leg: Limited due to pt having pants on. Vessels visualized appear negative for DVT. Edema note d throughout leg. IMPRESSION: No sign of deep vein thrombosis in the right leg.
[2022-02-21] MEDS ORDERED: CALCIUM GLUCONATE IN NACL 2 GM in SALINE 1 100ML.BAG IVPB ONE (23:45)
[2022-02-22 00:30] LABS: Appearance,Urine Clear (Clear); Bilirubin,Urine Negative (Negative); Blood,Urine Negative (Negative); Color,Urine Yellow; Glucose,Urine (UA) Negative (Negative); Ketones,Urine Negative (Negative); Leukocyte Esterase,Urine Negative (Negative); Nitrite,Urine Negative (Negative); Protein,Urine Negative (Negative); Specific Gravity,Urine 1.009 (1.001-1.035); Urobilinogen,Urine <2.0 mg/dL (<2.0)
[2022-02-22] MEDS: hydrALAZINE HCL 25 MG TAB PO SCH ×4 (02:17→22:19)
--- NOTE | 2022-02-22 02:28 | P.HPIM ---
History of Present Illness H&P Date: 02/22/22 The patient is a 61-year-old male with a PMH of ESRD status post renal and pancreatic transplant in 1997, peripheral vascular disease, recent diagnosed of similar was a foot diagnosed osteomyelitis of left foot who presents to the emergency room with complaints of shortness of breath, lower extremity swelling, and fevers. The patient reports that symptoms started roughly a week ago and g radually worsened. He also reports orthopnea and PND as well as a nonproductive cough. 01/09-01/19 for osteomyelitis of left foot and was subsequently discharged on oral Flagyl and IV daptomycin. The patient reports that he has been following with Dr. Sow and continues to be on oral Flagyl. During this presentation, in the emergency room, chest x-ray revealed heart failure with bilateral pleural effusions with a right lower lobe pneumonia laboratory evaluation was remarkable for leukocytosis of 15.0, thrombocytosis of 466, BUN 38, creatinine 1.44, potassium 5.6, troponin less than 0.012, proBNP 6870. The patient was started on BiPAP in the emergency room. Review of systems: Pertinent positives and negatives as discussed in HPI, a complete review of systems was performed and all other systems are negative. Physical examination: General: Somewhat ill-appearing male on BiPAP, no distress, appears at stated age, normal weight Derm: no unusual rashes/lesions, warm Head: atraumatic, normocephalic, symmetric Eyes: EOMI, no lid lag, anicteric sclera, pupils equal round reactive to light ENT: Nose and ears atraumatic Neck: No cervical lymphadenopathy, trachea midline, supple Mouth: no lip lesion, mucus membranes moist Cardiovascular: S1S2 reg, no murmur, positive dorsalis pedis pulse bilateral, 2+ bilateral lower extremity pitting edema Lungs: Bibasilar scattered rales and rhonchi, no wheezing, no accessory muscle use Abdominal: soft, nontender to palpation, no guarding Ext: muscle strength 4 out of 5 in all 4 extremities grossly, no gross muscle atrophy, no contractures, Neuro: CN II-XI grossly intact, no gross focal neuro deficits Psych: Alert, oriented, appropriate affect Assessment/plan Sepsis, possibly secondary to pneumonia -Continue cefepime -Infectious disease consult -Follow-up blood cultures -Hold off on IV fluids due to acute CHF exacerbation -Patient on CellCept chronically due to kidney and pancreatic transplants Acute CHF exacerbation, newly diagnosed -Obtain echocardiogram -Cardiology consulted -Continue with Lasix -Intake and output -Daily weights -Monitor electrolytes -BiPAP for now Hyperkalemia -Status post calcium gluconate and albuterol -Monitor for now Chronic kidney disease -Improved than baseline DVT prophylaxis -Heparin subcu The patient is admitted with an anticipated greater than 2 midnight stay for evaluation of sepsis. CODE STATUS: Full Code Discussed with: Patient Anticipated discharge date: 3-[address]: Home Past Medical History Past Medical History: Cancer, Skin Disorder Additional Past Medical History / Comment(s): RT FOOT OPEN AREA, PVD, WAS TX FOR DIABETES UP UNTIL HIS TRANSPLANT(). 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 Past Anesthesia/Blood Transfusion Reactions: No Reported Reaction Past Psychological History: Anxiety Smoking Status: Never smoker Past Alcohol Use History: None Reported Past Drug Use History: None Reported - Past Family History Father Additional Family Medical History / Comment(s): Pt states father of motorcycle accident 1970 Mother Family Medical History: Coronary Artery Disease (CAD) Medications and Allergies Home Medications Medication Instructions Recorded Confirmed Type Aspirin 81 mg PO DAILY 09/27/13 02/21/22 History Multivitamin [Men's Multi-Vitamin] 1 tab PO DAILY 09/27/13 02/21/22 History mycophenolate mofetiL [Cellcept] 500 mg PO BID 09/27/13 02/21/22 History predniSONE 5 mg PO DAILY 09/27/13 02/21/22 History Tacrolimus [Prograf] 1 mg PO BID 01/03/14 02/21/22 History Dorzolamide 2% [Trusopt 2%] 1 drop LEFT EYE BID 12/02/14 02/21/22 History carvediloL [Coreg] 6.25 mg PO BID 02/15/18 02/21/22 History Brimonidine Tartrate/Timolol 1 drop BOTH EYES BID 11/25/21 02/21/22 History [Combigan 0.2%-0.5% Eye Drops] Calcium Carbonate [Tums] 500 mg PO TID PRN 11/25/21 02/21/22 History NIFEdipine XL [Procardia XL] 60 mg PO BID 11/25/21 02/21/22 History Gabapentin 300 mg PO HS #3 cap 01/19/22 02/21/22 Rx Magnesium Oxide [Mag-Ox] 400 mg PO DAILY tab 01/19/22 02/21/22 Rx hydrALAZINE HCL [Apresoline] 25 mg PO TID tab 01/19/22 02/21/22 Rx Bimatoprost [Lumigan 0.01% Ophth 1 drop RIGHT EYE HS 02/21/22 02/21/22 History Soln] Cholecalciferol [Vitamin D3 (25 25 mcg PO DAILY 02/21/22 02/21/22 History Mcg = 1000 Iu)] Folic Acid 0.8 mg PO DAILY 02/21/22 02/21/22 History Lovastatin [Mevacor] 20 mg PO DIRECTED 02/21/22 02/21/22 History Ondansetron [Zofran] 4 mg PO TID PRN 02/21/22 02/21/22 History Allergies Allergy/AdvReac Type Severity Reaction Status Date / Time latex Allergy Rash/Hives Verified 02/21/22 21:26 Penicillins Allergy Rash/Hives Verified 02/21/22 21:26 Physical Exam Vitals: Vital Signs Temp Pulse Resp BP Pulse Ox FiO2 02/21/22 23:56 99.2 F 97 18 139/96 96 02/21/22 23:22 104 H 17 134/73 96 02/21/22 22:45 90 28 H 139/73 97 02/21/22 22:35 108 H 02/21/22 22:14 106 H 30 02/21/22 20:50 30 02/21/22 20:17 98.6 F 117 H 153/82 93 L 02/21/22 19:22 26 H 02/21/22 19:09 99.4 F 105 H 18 156/76 92 L Intake and Output 02/21/22 02/21/22 02/22/22 14:59 22:59 06:59 Output Total 400 Balance -400 Output: Urine 400 Other: Weight 63.503 kg Results CBC & Chem 7: 02/21/22 20:47 02/21/22 20:46 Labs: Abnormal Lab Results - Last 24 Hours (Table) 02/21/22 02/21/22 Range/Units 20:46 20:47 WBC 15.0 H (3.8-10.6) k/uL RBC 3.80 L (4.30-5.90) m/uL Hgb 11.4 L (13.0-17.5) gm/dL Hct 34.6 L (39.0-53.0) % RDW 17.9 H (11.5-15.5) % Plt Count 466 H (150-450) k/uL Neutrophils # (Manual) 11.70 H (1.3-7.7) k/uL Monocytes # (Manual) 1.65 H (0-1.0) k/uL Sodium 134 L (137-145) mmol/L Potassium 5.6 H (3.5-5.1) mmol/L Carbon Dioxide 21 L (22-30) mmol/L BUN 38 H (9-20) mg/dL Creatinine 1.44 H (0.66-1.25) mg/dL Glucose 138 H (74-99) mg/dL
[2022-02-22 02:52] LABS: Glucose,Whole Blood 113 mg/dL (70-110)
[2022-02-22 03:02] LABS: Glucose,Whole Blood 111 mg/dL (70-110)
[2022-02-22] MEDS ORDERED: CEFEPIME 2 GM in SODIUM CHLORIDE 0.9% 100 ML IVPB SCH (04:00)
[2022-02-22] MEDS: carvediloL 6.25 MG TAB PO SCH ×2 (06:48→16:46)
[2022-02-22 07:42] LABS: Anisocytosis Slight; HCT 33.1 % (39.0-53.0); HGB 10.7 gm/dL (13.0-17.5); MCH 29.7 pg (25.0-35.0); MCHC 32.2 g/dL (31.0-37.0); MCV 92.2 fL (80.0-100.0); Mean Platelet Volume 7.5; Platelet Count 369 k/uL (150-450); RBC 3.59 m/uL (4.30-5.90); WBC 10.5 k/uL (3.8-10.6)
[2022-02-22 07:46] LABS: Calcium 8.6 mg/dL (8.4-10.2)
--- NOTE | 2022-02-22 07:55 | P.CRDCN ---
History of Present Illness Consult date: 02/22/22 Chief complaint: Shortness of breath History of present illness: This is a 61-year-old gentleman with a past medical history significant for hype rtension as well as dyslipidemia as well as history of kidney and pancreatic transplant in 1997 as well as history of critical limb ischemia of the left foot presented to the hospital complaining of shortness of breath. The patient was seen this morning in the intensive care unit where he was on BiPAP. He is somewhat poor historian. Apparently the patient presented to the emergency department complaining of shortness of breath for the last 2 weeks. The shortness of breath was not associated with any chest pain or chest discomfort nor lower extremities edema. No fever or chills before he presented to the hospital but the patient was a spiking fever in the intensive care unit when he was seen this morning with a temperature of 101. No symptoms of any chest pain or chest discomfort. No cough or sputum production. Further investigation was performed in the emergency department including a chest x-ray which showed finding consistent with possible pneumonia with a component of heart failure with bilateral pleural effusion. NT proBNP came in to be elevated at almost 8000. Also an EKG was performed and showed what it seems to be atrial flutter/atrial fibrillation with overall controlled heart rate. According to the patient no history of coronary artery disease and no heart failure and no cardiac arrhythmia and never seen any class 1 owner operator before. The patient had multiple hospital admission in the past but never seen by cardiology service. He underwent an echo back in 2021 and that revealed preserved left ventricular systolic function was no significant valvular abnormalities. He is in process of having another echo during this admission. When he was seen and evaluated this morning he does have mild edema and he also does have diminished breathing sounds bilaterally/wheezing. Currently he is on Lasix. He is also on BiPAP Past Medical History Past Medical History: Cancer, Skin Disorder Additional Past Medical History / Comment(s): RT FOOT OPEN AREA, PVD, WAS TX FOR DIABETES UP UNTIL HIS TRANSPLANT(). 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 Past Anesthesia/Blood Transfusion Reactions: No Reported Reaction Past Psychological History: Anxiety Smoking Status: Never smoker Past Alcohol Use History: None Reported Past Drug Use History: None Reported - Past Family History Father Additional Family Medical History / Comment(s): Pt states father of mot orcycle accident 1970 Mother Family Medical History: Coronary Artery Disease (CAD) Medications and Allergies Home Medications Medication Instructions Recorded Confirmed Type Aspirin 81 mg PO DAILY 09/27/13 02/21/22 History Multivitamin [Men's Multi-Vitamin] 1 tab PO DAILY 09/27/13 02/21/22 History mycophenolate mofetiL [Cellcept] 500 mg PO BID 09/27/13 02/21/22 History predniSONE 5 mg PO DAILY 09/27/13 02/21/22 History Tacrolimus [Prograf] 1 mg PO BID 01/03/14 02/21/22 History Dorzolamide 2% [Trusopt 2%] 1 drop LEFT EYE BID 12/02/14 02/21/22 History carvediloL [Coreg] 6.25 mg PO BID 02/15/18 02/21/22 History Brimonidine Tartrate/Timolol 1 drop BOTH EYES BID 11/25/21 02/21/22 History [Combigan 0.2%-0.5% Eye Drops] Calcium Carbonate [Tums] 500 mg PO TID PRN 11/25/21 02/21/22 History NIFEdipine XL [Procardia XL] 60 mg PO BID 11/25/21 02/21/22 History Gabapentin 300 mg PO HS #3 cap 01/19/22 02/21/22 Rx Magnesium Oxide [Mag-Ox] 400 mg PO DAILY tab 01/19/22 02/21/22 Rx hydrALAZINE HCL [Apresoline] 25 mg PO TID tab 01/19/22 02/21/22 Rx Bimatoprost [Lumigan 0.01% Ophth 1 drop RIGHT EYE HS 02/21/22 02/21/22 History Soln] Cholecalciferol [Vitamin D3 (25 25 mcg PO DAILY 02/21/22 02/21/22 History Mcg = 1000 Iu)] Folic Acid 0.8 mg PO DAILY 02/21/22 02/21/22 History Lovastatin [Mevacor] 20 mg PO DIRECTED 02/21/22 02/21/22 History Ondansetron [Zofran] 4 mg PO TID PRN 02/21/22 02/21/22 History Allergies Allergy/AdvReac Type Severity Reaction Status Date / Time latex Allergy Rash/Hives Verified 02/21/22 21:26 Penicillins Allergy Rash/Hives Verified 02/21/22 21:26 Physical Exam Vitals: Vital Signs Temp Pulse Resp BP Pulse Ox FiO2 02/22/22 07:14 30 02/22/22 07:00 99.9 F H 101 H 18 139/81 90 L 02/22/22 06:30 95 17 139/81 92 L 02/22/22 06:00 94 14 145/81 93 L 02/22/22 05:30 104 H 22 145/81 93 L 02/22/22 05:00 101 H 17 135/84 91 L 02/22/22 04:30 80 14 135/84 92 L 02/22/22 04:00 99.1 F 100 15 115/91 92 L 02/22/22 03:40 105 H 16 115/91 90 L 02/22/22 03:30 90 15 115/91 91 L 02/22/22 03:20 95 15 115/91 92 L 02/22/22 03:10 99.4 F 98 20 115/91 93 L 02/22/22 03:00 30 02/22/22 02:15 96 19 147/97 96 02/21/22 23:56 99.2 F 97 18 139/96 96 02/21/22 23:22 104 H 17 134/73 96 02/21/22 22:45 90 28 H 139/73 97 02/21/22 22:35 108 H 02/21/22 22:14 106 H 30 02/21/22 20:50 30 02/21/22 20:17 98.6 F 117 H 153/82 93 L 02/21/22 19:22 26 H 02/21/22 19:09 99.4 F 105 H 18 156/76 92 L Intake and Output 02/21/22 02/22/22 02/22/22 22:59 06:59 14:59 Intake Total 100 50 Output Total 800 Balance -700 50 Intake: IV 100 Cefepime 2 gm In Sodium 100 Chloride 0.9% 100 ml @ 25 mls/hr IVPB Q8H [facility] Rx#: [id number] Oral 50 Output: Urine 800 Other: Voiding Method Urinal # Voids 1 Weight 63.503 kg 66.6 kg - Constitutional General appearance: no acute distress - Respiratory Respiratory: bilateral: diminished - Cardiovascular Rhythm: irregularly irregular Heart sounds: normal: S1, S2 Abnormal Heart Sounds: systolic murmur Results 02/22/22 06:41 02/22/22 06:41 Cardiac Enzymes 02/21/22 02/21/22 Range/Units 20:46 20:46 AST 27 (17-59) U/L Troponin I <0.012 (0.000-0.034) ng/mL Coagulation 02/21/22 Range/Units 20:46 PT 12.0 (9.0-12.0) sec APTT 29.9 (22.0-30.0) sec CBC 02/21/22 02/22/22 Range/Units 20:47 06:41 WBC 15.0 H 10.5 (3.8-10.6) k/uL RBC 3.80 L 3.59 L (4.30-5.90) m/uL Hgb 11.4 L 10.7 L (13.0-17.5) gm/dL Hct 34.6 L 33.1 L (39.0-53.0) % Plt Count 466 H 369 (150-450) k/uL Comprehensive Metabolic Panel 02/21/22 02/22/22 Range/Units 20:46 06:41 Sodium 134 L 134 L (137-145) mmol/L Potassium 5.6 H 5.0 (3.5-5.1) mmol/L Chloride 102 103 (98-107) mmol/L Carbon Dioxide 21 L 22 (22-30) mmol/L BUN 38 H 33 H (9-20) mg/dL Creatinine 1.44 H 1.19 (0.66-1.25) mg/dL Glucose 138 H 96 (74-99) mg/dL Calcium 8.6 8.6 (8.4-10.2) mg/dL AST 27 (17-59) U/L ALT 14 (4-49) U/L Alkaline Phosphatase 88 (38-126) U/L Total Protein 8.0 (6.3-8.2) g/dL Albumin 3.9 (3.5-5.0) g/dL Current Medications Generic Name Dose Route Start Last Admin Trade Name Freq PRN Reason Stop Dose Admin Acetaminophen 650 mg 02/21/22 21:27 Acetaminophen Tab 325 Mg Tab PO Q6HR PRN Mild Pain or Fever > 100.5 Aspirin 81 mg 02/22/22 09:00 Aspirin 81 Mg PO DAILY [facility] Brimonidine Tartrate 1 drops 02/22/22 09:00 Brimonidine Tartrate 0.2% Drops 5 Ml Btl BOTH EYES BID [facility] Calcium Carbonate/Glycine 500 mg 02/21/22 21:34 Calcium Carbonate 500 Mg Chewable PO TID PRN Heartburn Carvedilol 6.25 mg 02/22/22 07:30 02/22/22 06:48 Carvedilol 6.25 Mg Tab PO 6.25 mg BID-W/MEALS [facility] Administration Cholecalciferol 25 mcg 02/22/22 09:00 Cholecalciferol 25 Mcg (1000 Iu) Tablet PO DAILY [facility] Dorzolamide HCl 1 drops 02/22/22 09:00 Dorzolamide Hcl 2% Drops 10 Ml Btl LEFT EYE BID [facility] Furosemide 40 mg 02/22/22 09:00 Furosemide 10 Mg/Ml 4 Ml Vial IV Q12HR [facility] Gabapentin 300 mg 02/22/22 21:00 Gabapentin 300 Mg Cap PO HS [facility] Heparin Sodium (Porcine) 5,000 unit 02/22/22 08:00 Heparin Sodium,Porcine/Pf 5,000 Unit/0.5 Ml Syringe SQ Q8HR [facility] Hydralazine HCl 25 mg 02/22/22 00:15 02/22/22 02:17 Hydralazine Hcl 25 Mg Tab PO Not Given TID [facility] Daptomycin 500 mg/ Sodium 50 mls @ 100 mls/hr 02/22/22 21:00 Chloride IVPB Q24H [facility] Cefepime HCl 2 gm/ Sodium 100 mls @ 25 mls/hr 02/22/22 04:00 02/22/22 04:45 Chloride IVPB 02/22/22 09:00 25 mls/hr Q8H [facility] Administration Protocol Cefepime HCl 2 gm/ Sodium 100 mls @ 25 mls/hr 02/22/22 12:00 Chloride IVPB Q12H [facility] Protocol Magnesium Oxide 400 mg 02/22/22 09:00 Magnesium Oxide 400 Mg Tab PO DAILY [facility] Mycophenolate Mofetil 500 mg 02/22/22 09:00 Mycophenolate Mofetil 500 Mg Tab PO BID [facility] Naloxone HCl 0.2 mg 02/21/22 21:27 Naloxone 0.4 Mg/Ml 1 Ml Vial IV Q2M PRN Opioid Reversal Nifedipine 60 mg 02/22/22 09:00 Nifedipine Xl 60 Mg Tab.Er.24 PO BID [facility] Prednisone 5 mg 02/22/22 09:00 Prednisone 5 Mg Tab PO DAILY [facility] Tacrolimus 1 mg 02/22/22 09:00 Tacrolimus 1 Mg Cap PO BID [facility] Timolol Maleate 1 drops 02/22/22 09:00 Timolol 0.5% Ophth Drops 5 Ml Btl BOTH EYES BID [facility] Intake and Output 02/21/22 02/22/22 02/22/22 22:59 06:59 14:59 Intake Total 100 50 Output Total 800 Balance -700 50 Intake: IV 100 Cefepime 2 gm In Sodium 100 Chloride 0.9% 100 ml @ 25 mls/hr IVPB Q8H [facility] Rx#: [id number] Oral 50 Output: Urine 800 Other: Voiding Method Urinal # Voids 1 Weight 63.503 kg 66.6 kg 02/22/22 06:41 02/22/22 06:41 Assessment and Plan Assessment: Assessment Shortness of breath likely related to a combination of pneumonia and heart failure Heart failure exacerbation was evidence off left more than right failure related to heart failure with preserved ejection fraction Bilateral pleural effusion Multiple comorbid conditions Plan Continue the current dose of Lasix IV Continue monitor the kidney function and electrolytes Follow-up on the echocardiogram Rule out acute coronary event Follow-up with the patient
[2022-02-22] MEDS: HEPARIN SODIUM,PORCINE/PF 5,000 UNIT/0.5 ML SYRINGE SQ SCH ×3 (08:42→23:57)
[2022-02-22] MEDS: predniSONE 5 MG TAB PO SCH (08:43)
[2022-02-22] MEDS: TACROLIMUS 1 MG CAP PO SCH ×2 (08:43→20:39)
[2022-02-22] MEDS: FUROSEMIDE 10 MG/ML 4 ML VIAL IV SCH ×2 (08:43→20:39)
[2022-02-22] MEDS: MAGNESIUM OXIDE 400 MG TAB PO SCH (08:43)
[2022-02-22] MEDS: CHOLECALCIFEROL 25 MCG (1000 IU) TABLET PO SCH (08:43)
[2022-02-22] MEDS: ASPIRIN 81 MG PO SCH (08:43)
[2022-02-22 09:22] LABS: Lymphocytes # (M) 1.16 k/uL (1.0-4.8); Monocytes # (M) 0.95 k/uL (0-1.0); Neutrophils % (M) 80 %; Nucleated Red Blood Cells 0 /100 WBC (0-0); Total Cells Counted 100
--- NOTE | 2022-02-22 10:13 | P.NPCON ---
History of Present Illness - Reason for Consult acute renal failure - History of Present Illness Reason for consultation: Acute renal failure and renal transplant management History of present illness: Patient is a 61-year-old male seen in renal consultation for acute kidney injury and renal transplant management. Patient received simultaneous kidney and pancreas transplant in 1997 at [facility]. Patient baseline creatinine is near 1. Patient was recently admitted at this facility in 2021 with left diabetic foot ulcer/osteomyelitis. He was seen by wound care as well as infectious disease. He was discharged on IV antibiotics which he still on. Patient's creatinine during that admission had worsened and peaked at 3.38. Creatinine this admission was 1.44 and is 1.19 today. Patient presented to the hospital or shortness of breath and lower extremity swelling. No DVT noted in the right lower extremity. Chest x-ray suggestive of fluid overload. Blood pressure stable. Patient's white count was high on admission but is normal today. Patient is currently resting in bed and is on BiPAP. He is maintained on Prograf, CellCept and prednisone for his immunosuppressive meds. I don't see any nonsteroidals and his home medication list. Vital signs are stable. General: Resting in bed. HEENT: On BiPAP. LUNGS: Breath sounds decreased. HEART: Rate and Rhythm are regular. ABDOMEN: Soft, no distention. EXTREMITITES: 2+ edema. Past Medical History Past Medical History: Cancer, Skin Disorder Additional Past Medical History / Comment(s): RT FOOT OPEN AREA, PVD, WAS TX FOR DIABETES UP UNTIL HIS TRANSPLANT(). 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 Past Anesthesia/Blood Transfusion Reactions: No Reported Reaction Past Psychological History: Anxiety Smoking Status: Never smoker Past Alcohol Use History: None Reported Past Drug Use History: None Reported - Past Family History Father Additional Family Medical History / Comment(s): Pt states father of mo torcycle accident 1970 Mother Family Medical History: Coronary Artery Disease (CAD) Medications and Allergies Home Medications Medication Instructions Recorded Confirmed Type Aspirin 81 mg PO DAILY 09/27/13 02/21/22 History Multivitamin [Men's Multi-Vitamin] 1 tab PO DAILY 09/27/13 02/21/22 History mycophenolate mofetiL [Cellcept] 500 mg PO BID 09/27/13 02/21/22 History predniSONE 5 mg PO DAILY 09/27/13 02/21/22 History Tacrolimus [Prograf] 1 mg PO BID 01/03/14 02/21/22 History Dorzolamide 2% [Trusopt 2%] 1 drop LEFT EYE BID 12/02/14 02/21/22 History carvediloL [Coreg] 6.25 mg PO BID 02/15/18 02/21/22 History Brimonidine Tartrate/Timolol 1 drop BOTH EYES BID 11/25/21 02/21/22 History [Combigan 0.2%-0.5% Eye Drops] Calcium Carbonate [Tums] 500 mg PO TID PRN 11/25/21 02/21/22 History NIFEdipine XL [Procardia XL] 60 mg PO BID 11/25/21 02/21/22 History Gabapentin 300 mg PO HS #3 cap 01/19/22 02/21/22 Rx Magnesium Oxide [Mag-Ox] 400 mg PO DAILY tab 01/19/22 02/21/22 Rx hydrALAZINE HCL [Apresoline] 25 mg PO TID tab 01/19/22 02/21/22 Rx Bimatoprost [Lumigan 0.01% Ophth 1 drop RIGHT EYE HS 02/21/22 02/21/22 History Soln] Cholecalciferol [Vitamin D3 (25 25 mcg PO DAILY 02/21/22 02/21/22 History Mcg = 1000 Iu)] Folic Acid 0.8 mg PO DAILY 02/21/22 02/21/22 History Lovastatin [Mevacor] 20 mg PO DIRECTED 02/21/22 02/21/22 History Ondansetron [Zofran] 4 mg PO TID PRN 02/21/22 02/21/22 History Allergies Allergy/AdvReac Type Severity Reaction Status Date / Time latex Allergy Rash/Hives Verified 02/21/22 21:26 Penicillins Allergy Rash/Hives Verified 02/21/22 21:26 Physical Exam Vitals: Vital Signs Temp Pulse Resp BP Pulse Ox FiO2 02/22/22 07:14 30 02/22/22 07:00 99.9 F H 101 H 18 139/81 90 L 02/22/22 06:30 95 17 139/81 92 L 02/22/22 06:00 94 14 145/81 93 L 02/22/22 05:30 104 H 22 145/81 93 L 02/22/22 05:00 101 H 17 135/84 91 L 02/22/22 04:30 80 14 135/84 92 L 02/22/22 04:00 99.1 F 100 15 115/91 92 L 02/22/22 03:40 105 H 16 115/91 90 L 02/22/22 03:30 90 15 115/91 91 L 02/22/22 03:20 95 15 115/91 92 L 02/22/22 03:10 99.4 F 98 20 115/91 93 L 02/22/22 03:00 30 02/22/22 02:15 96 19 147/97 96 02/21/22 23:56 99.2 F 97 18 139/96 96 02/21/22 23:22 104 H 17 134/73 96 02/21/22 22:45 90 28 H 139/73 97 02/21/22 22:35 108 H 02/21/22 22:14 106 H 30 02/21/22 20:50 30 02/21/22 20:17 98.6 F 117 H 153/82 93 L 02/21/22 19:22 26 H 02/21/22 19:09 99.4 F 105 H 18 156/76 92 L Intake and Output 02/21/22 02/22/22 02/22/22 22:59 06:59 14:59 Intake Total 100 50 Output Total 800 Balance -700 50 Intake: IV 100 Cefepime 2 gm In Sodium 100 Chloride 0.9% 100 ml @ 25 mls/hr IVPB Q8H [facility] Rx#: [id number] Oral 50 Output: Urine 800 Other: Voiding Method Urinal # Voids 1 Weight 63.503 kg 66.6 kg Results - Lab Results Most recent lab results Calcium 8.6 mg/dL (8.4-10.2) 02/22/22 06:41 Magnesium 2.0 mg/dL (1.6-2.3) 02/22/22 06:41 02/22/22 06:41 02/22/22 06:41 Assessment and Plan Plan: Assessment: 1. Acute allograft dysfunction mostly prerenal secondary to cardiorenal syndrome. Creatinine 1.44 on admission is 1.19 today. Baseline creatinine near 1. 2. Status post simultaneous kidney pancreas transplant in 1997 from [facility]. 3. Acute hypoxic respiratory failure secondary to fluid overload. 4. Foot infection/osteomyelitis on antibiotics. ?Pneumonia. 5. Hypertension with chronic kidney disease. Stable. Plan: Maintain IV Lasix. Antibiotics per ID. Check Prograf level. Continue with home anti-rejection meds for now. Will hold CellCept if any signs of worsening infection. Follow-up echocardiogram. Continue to monitor renal function and urine output. Thank you for the consultation. I will continue to follow the patient with you during his hospital stay.
--- NOTE | 2022-02-22 11:21 | P.CNPUL ---
History of Present Illness Consult date: 02/15/22 Requesting physician: Abraham Nino Reason for consult: dyspnea, hypoxemia, pleural effusion, abnormal CXR/CT Chief complaint: Shortness of breath/CHF. History of present illness: Pulmonary consult dated 02/22/2022. 61-year-old male who presented to the emergency department, with shortness of breath. The patient hadn't been feeling well for about 2 days prior to admission. In addition, he had some weight gain, increasing abdominal girth, and bilateral lower extremity swelling. The patient was recently being treated with Flagyl, as an outpatient, for a left foot ulcer. He was in the hospital last month for bacteremia and respiratory failure. He denied any chest pain or chest discomfort. No abdominal pain, nausea, vomiting, or diarrhea. The patient has a significant history of kidney and pancreas transplant, 1997, and uterus he was constant. In addition, he has a history of cardiac arrhythmia, CHF, and COPD. I used to see the patient on a regular basis in the office, but if not seen him recently. White count 10.5, hemoglobin 10.7, hematocrit 33.1, and platelet count 369,000. Sodium 134, potassium 5, chlorides 103, CO2 22, BUN 33, creatinine 1.19. The N-terminal proBNP was 6870. Troponin was normal. Urine was negative. Testing for epps virus was negative. Chest x-ray showed findings consistent with CHF. Review of Systems REVIEW OF SYSTEMS: CONSTITUTIONAL: [Negative.] NEUROLOGIC: [ Negative.] HEENT: [ Negative.] CARDIAC: Lower extremity edema. PULMONARY: Shortness of breath. GI: Increasing abdominal girth. : [Negative.] RHEUMATOLOGIC: [ Negative.] IMMUNOLOGIC: [ Negative.] ENDOCRINE: [Negative. ] DERMATOLOGIC: [Negative.] Past Medical History Past Medical History: Cancer, Skin Disorder Additional Past Medical History / Comment(s): RT FOOT OPEN AREA, PVD, WAS TX FOR DIABETES UP UNTIL HIS TRANSPLANT(). 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 Past Anesthesia/Blood Transfusion Reactions: No Reported Reaction Past Psychological History: Anxiety Smoking Status: Never smoker Past Alcohol Use History: None Reported Past Drug Use History: None Reported - Past Family History Father Additional Family Medical History / Comment(s): Pt states father of motorcycle accident 1970 Mother Family Medical History: Coronary Artery Disease (CAD) Medications and Allergies Home Medications Medication Instructions Recorded Confirmed Type Aspirin 81 mg PO DAILY 09/27/13 02/21/22 History Multivitamin [Men's Multi-Vitamin] 1 tab PO DAILY 09/27/13 02/21/22 History mycophenolate mofetiL [Cellcept] 500 mg PO BID 09/27/13 02/21/22 History predniSONE 5 mg PO DAILY 09/27/13 02/21/22 History Tacrolimus [Prograf] 1 mg PO BID 01/03/14 02/21/22 History Dorzolamide 2% [Trusopt 2%] 1 drop LEFT EYE BID 12/02/14 02/21/22 History carvediloL [Coreg] 6.25 mg PO BID 02/15/18 02/21/22 History Brimonidine Tartrate/Timolol 1 drop BOTH EYES BID 11/25/21 02/21/22 History [Combigan 0.2%-0.5% Eye Drops] Calcium Carbonate [Tums] 500 mg PO TID PRN 11/25/21 02/21/22 History NIFEdipine XL [Procardia XL] 60 mg PO BID 11/25/21 02/21/22 History Gabapentin 300 mg PO HS #3 cap 01/19/22 02/21/22 Rx Magnesium Oxide [Mag-Ox] 400 mg PO DAILY tab 01/19/22 02/21/22 Rx hydrALAZINE HCL [Apresoline] 25 mg PO TID tab 01/19/22 02/21/22 Rx Bimatoprost [Lumigan 0.01% Ophth 1 drop RIGHT EYE HS 02/21/22 02/21/22 History Soln] Cholecalciferol [Vitamin D3 (25 25 mcg PO DAILY 02/21/22 02/21/22 History Mcg = 1000 Iu)] Folic Acid 0.8 mg PO DAILY 02/21/22 02/21/22 History Lovastatin [Mevacor] 20 mg PO DIRECTED 02/21/22 02/21/22 History Ondansetron [Zofran] 4 mg PO TID PRN 02/21/22 02/21/22 History Allergies Allergy/AdvReac Type Severity Reaction Status Date / Time latex Allergy Rash/Hives Verified 02/21/22 21:26 Penicillins Allergy Rash/Hives Verified 02/21/22 21:26 Physical Exam Osteopathic Statement: *. No significant issues noted on an osteopathic structural exam other than those noted in the History and Physical/Consult. Vitals: Vital Signs Temp Pulse Resp BP Pulse Ox FiO2 02/22/22 07:14 30 02/22/22 07:00 99.9 F H 101 H 18 139/81 90 L 02/22/22 06:30 95 17 139/81 92 L 02/22/22 06:00 94 14 145/81 93 L 02/22/22 05:30 104 H 22 145/81 93 L 02/22/22 05:00 101 H 17 135/84 91 L 02/22/22 04:30 80 14 135/84 92 L 02/22/22 04:00 99.1 F 100 15 115/91 92 L 02/22/22 03:40 105 H 16 115/91 90 L 02/22/22 03:30 90 15 115/91 91 L 02/22/22 03:20 95 15 115/91 92 L 02/22/22 03:10 99.4 F 98 20 115/91 93 L 02/22/22 03:00 30 02/22/22 02:15 96 19 147/97 96 02/21/22 23:56 99.2 F 97 18 139/96 96 02/21/22 23:22 104 H 17 134/73 96 02/21/22 22:45 90 28 H 139/73 97 02/21/22 22:35 108 H 02/21/22 22:14 106 H 30 02/21/22 20:50 30 02/21/22 20:17 98.6 F 117 H 153/82 93 L 02/21/22 19:22 26 H 02/21/22 19:09 99.4 F 105 H 18 156/76 92 L Intake and Output 02/21/22 02/22/22 02/22/22 22:59 06:59 14:59 Intake Total 100 50 Output Total 800 Balance -700 50 Intake: IV 100 Cefepime 2 gm In Sodium 100 Chloride 0.9% 100 ml @ 25 mls/hr IVPB Q8H [facility] Rx#: [id number] Oral 50 Output: Urine 800 Other: Voiding Method Urinal # Voids 1 Weight 63.503 kg 66.6 kg No acute distress, oriented 3. Currently on 5 L of oxygen. Was on BiPAP at 10/5, and 30%. HEENT examination is grossly unremarkable. Neck supple. Full range of motion. No adenopathy thyromegaly or neck vein distention. Cardiovascular examination reveals regular rhythm rate. S1-S2 normal. No S3 or S4. No discernible murmur noted. Heart rate 95 bpm. Lungs reveal bibasilar crackles. Scattered rhonchi are noted. Saturations are between 90 - 92% on 5 L. No wheezes. Abdomen soft, with bowel sounds, but distended. No tenderness. Extremities reveal some mild edema. No cyanosis or clubbing. Plantar ulcer is wrapped. Skin has multiple areas of ecchymoses. Neurologic examination is brief but nonfocal. Results - Laboratory Findings CBC and BMP: 02/22/22 06:41 02/22/22 06:41 PT/INR, D-dimer PT 12.0 sec (9.0-12.0) 02/21/22 20:46 INR 1.1 (<1.2) 02/21/22 20:46 Abnormal lab findings: Abnormal Labs 02/21/22 02/21/22 02/22/22 20:46 20:47 02:51 WBC 15.0 H RBC 3.80 L Hgb 11.4 L Hct 34.6 L RDW 17.9 H Plt Count 466 H Neutrophils # (Manual) 11.70 H Monocytes # (Manual) 1.65 H Sodium 134 L Potassium 5.6 H Carbon Dioxide 21 L BUN 38 H Creatinine 1.44 H Glucose 138 H POC Glucose (mg/dL) 113 H 02/22/22 02/22/22 02/22/22 03:01 06:41 06:41 WBC RBC 3.59 L Hgb 10.7 L Hct 33.1 L RDW 18.0 H Plt Count Neutrophils # (Manual) 8.40 H Monocytes # (Manual) Sodium 134 L Potassium Carbon Dioxide BUN 33 H Creatinine Glucose POC Glucose (mg/dL) 111 H - Diagnostic Findings Chest x-ray: image reviewed Assessment and Plan Assessment: Acute hypoxemic respiratory failure, requiring BiPAP therapy, secondary to fluid overload/CHF. Status post kidney/pancreas transplant, 1997, [facility]. Nonhealing ulcer, lower extremities. History of diabetes mellitus, and diabetic neuropathy History of skin cancer. Anemia of chronic disease Plan: Plan dated 02/22/2022. The patient was admitted to the intensive care unit, as an overflow patient, for 3 S. The patient is currently on daptomycin, as well as prednisone and Prograf, and cefepime. Additional recommendations and suggestions are forthcoming. Prognosis is guarded. The patient is on Lasix. He certainly is doing much better. He is currently not on BiPAP. We will continue to follow make recommendations along the way. Time with Patient: Greater than 30
--- NOTE | 2022-02-22 11:49 | P.PN ---
Progress Note - Text Progress Note Date: 02/22/22 Hospitalist Interval Note Patient seen and examined at bedside. Vital signs reviewed General: no distress, appears at stated age, normal weight Head: atraumatic, normocephalic, symmetric Eyes: EOMI, no lid lag, anicteric sclera, pupils equal round reactive to light ENT: Nose and ears atraumatic Neck: supple Mouth: no lip lesion, mucus membranes moist Cardiovascular: S1S2 reg, no murmur, 2+ bilateral lower extremity pitting edema Lungs: Bibasilar scattered rales and rhonchi, no wheezing, no accessory muscle use, 5 L nasal cannula Abdominal: soft, nontender to palpation, no guarding Ext: muscle strength 4 out of 5 in all 4 extremities grossly, no gross muscle atrophy, no contractures, left heel covered in gauze Neuro: CN II-XI grossly intact, no gross focal neuro deficits Psych: Alert, oriented, appropriate affect Assessment/Plan: Acute hypoxic respiratory failure Acute diastolic CHF exacerbation Possible community-acquired pneumonia Status post kidney/pancreas transplant, 1997 Acute kidney injury, likely secondary to cardiorenal syndrome Left foot osteomyelitis History of diabetes, diabetic neuropathy -Off of BiPAP, now on 5 L nasal cannula -On IV Lasix -Being followed by pulmonology, cardiology, nephrology -Echocardiogram pending This is an update note for patient , for full note see H&P from 02/22/22 at 2:16. There is no charge associated with this note.
[2022-02-22] MEDS: DORZOLAMIDE HCL 2% DROPS 10 ML BTL LEFT EYE SCH ×2 (12:07→20:37)
[2022-02-22] MEDS: BRIMONIDINE TARTRATE 0.2% DROPS 5 ML BTL BOTH EYES SCH ×2 (12:07→20:37)
[2022-02-22] MEDS: TIMOLOL 0.5% OPHTH DROPS 5 ML BTL BOTH EYES SCH ×2 (12:07→20:37)
[2022-02-22] MEDS: CEFEPIME 2 GM in SODIUM CHLORIDE 0.9% 100 ML IVPB SCH ×2 (12:56→20:40)
--- NOTE | 2022-02-22 14:56 | CDI ---
Documentation Clarification Form Date: 02/22/2022 02:45:00 PM From: Anna Quinn CCS, CCDS Admit Date: 02/21/2022 09:31:00 PM Patient Name: Rohan Plascencia Visit Number: [id number] Discharge Date: ATTENTION: The Clinical Documentation Specialists (CDI) and [facility] Coding Staff appreciate your assistance in clarifying documentation. Please respond to the clarification below the line at the bottom and electronically sign. The CDI & [facility] Coding staff will review the response and follow-up if needed. Please note: Queries are made part of the Legal Health Record. If you have any questions, please contact the author of this message via ITS. Dr. Gustavo Mcclain: Sepsis is documented in the 02/21 ED Note and also in the 02/22 H/P: Sepsis possibly secondary to Pneumonia. Additional clarification regarding the documented diagnosis of Sepsis is requested. History/Risk Factors per the 02/22 H/P: ESRD status post Kidney and Pancreas Transplant in 1997, PVD, Left Foot Osteomyelitis, MRSA right heel wound, Has upper left chest port in place for antibiotics, Anxiety. Clinical Indicators: Presented to the ED with SOB, Cough, Fever, lower extremity pain, Nausea, Vomiting, Leg edema bilaterally, chills. On outpatient antibiotics vis port in the left chest for non-healing left foot plantar ulcer. Recently admitted for bacteremia & respiratory failure. Admit with Congestive Heart Failure, Pneumonia, Respiratory Failure and CKD. 02/21 VS: T 99.4, P 105, R 18 - 26 (sob, labored, tachypnea), BP 156/76, PO 92 RA - 93 2Lnc - 30% BiPAP. 02/21 LAB: WBC 15.0, RBC 3.80, Hgb 11.4, Hct 34.6, Plt Ct 466, neutrophils 11.80, Monocytes 1.65; Na 134, K 5.6, CO2 21, BUN 38, Creatinine 1.38, Lactic Acid 1.0. 02/21 CXR: CHF with bilateral pleural effusions. Right lower lobe pneumonia, abnormalities new. Treatment 02/21: Telemetry, Blood cultures, O2 as above, IV Lasix 40 mg x1, IV Cefepime 2 gm in Na Chl 100 mls @ 200 mls/hr x1, INH Ventolin x1, INH Duoneb x1, IV Lasix 40 mg x1, IV Daptomycin 5000 mg in Na Chl 50 mls @ 100 mls/hr x1, IV Calcium Gluconate/Na Chl 2 gm 100 mls @ 100 mls/hr x1. Please clarify if Sepsis is a valid diagnosis? [ x ] Yes, Sepsis is present as evidence by (additional clinical support): ____elevated heart rate, elevated WBC, new xray findings concerning for pneumonia [ ] No, Sepsis is ruled out [ ] Other (please specify diagnosis) [ ] Unable to determine (Template Last Revised: June 2020) MTDD
--- NOTE | 2022-02-22 16:20 | CA ---
Transthoracic Echo Report Name: Rohan Plascencia Age: 61 Gender: M : 1960 Exam Date: 02/22/2022 08:03 Exam Location: [place] [facility] Ht (in): 67 Wt (lb): 146 Ordering Physician: Baron Bailey MD Attending/Referring Phys: [id number], Leo Signal Supervisor Lavinia Soler RDCS Procedure CPT: Indications: RORO Cardiac Hx: Technical Quality: Contrast 1: Total Dose (mL): Contrast 2: Total Dose (mL): MEASUREMENTS (Male / Female) Normal Values DOPPLER TR Peak Velocity 226.0 cm/s TR Peak Gradient 20.4 mmHg Right Ventricular Systolic Press 25.4 mmHg FINDINGS Left Ventricle Left ventricular ejection fraction is estimated at 55%. Right Ventricle Normal right ventricular size and function. Right Atrium Normal right atrial size. Left Atrium Left atrial dilatation. Mitral Valve Structurally normal mitral valve. Mild mitral regurgitation. Aortic Valve Trileaflet aortic valve. Tricuspid Valve Structurally normal tricuspid valve. Mild tricuspid regurgitation. Pulmonic Valve Structurally normal pulmonic valve. Pericardium Minimal pericardial effusion (normal variant). Aorta Normal size aortic root and proximal ascending aorta. CONCLUSIONS Left ventricular ejection fraction 50-55% Previewed by: Dr. Jerry Enamorado MD (Electronically Signed) Final Date: 22 February 2022 16:19
[2022-02-22] MEDS: GABAPENTIN 300 MG CAP PO SCH (20:39)
[2022-02-22] MEDS: DAPTOmycin 500 MG in SODIUM CHLORIDE 0.9% 50 ML IVPB SCH (21:01)
--- NOTE | 2022-02-22 22:50 | P.CONS ---
History of Present Illness - Reason for Consult Consult date: 02/22/22 - History of Present Illness Patient is a 61-year-old male with a past medical history significant for end-stage renal disease in this patient who did have a history of renal transplant currently on immunosuppressive medication patient has been dealing with chronic nonhealing wound to the left foot concerning for underlying osteomyelitis for which the patient has been on IV daptomycin and oral Flagyl supposed to complete his antibiotic therapy as of today patient is now presenting to the hospital for evaluation of increasing shortness of breath lower extremity swelling and fevers. Denies having any chest pain he did have a cough mild to moderate intensity mostly dry in nature patient denies having any nausea or vomiting no abdominal pain or any diarrhea with the symptoms the patient was evaluated by ER physician on arrival to the ER patient did have low- grade fever of 99.4 with a temperature of 99.9 this morning did have mild hypoxemia with O2 sats of 92% on room air currently on 2 L nasal cannula he did have white count of 15,000 with a left shift BUN and creatinine has been mildly elevated liver enzymes are normal urine has been negative COVID testing was negative blood cultures obtained are currently pending patient did have a chest x-ray congestive heart failure with bilateral pleural effusion and right lower lobe pneumonia patient also have a venous Doppler study no signs of DVT patient has been admitted to the hospital started on cefepime and daptomycin infectious disease was consulted for further management of antibiotic therapy Past Medical History Past Medical History: Cancer, Skin Disorder Additional Past Medical History / Comment(s): RT FOOT OPEN AREA, PVD, WAS TX FOR DIABETES UP UNTIL HIS TRANSPLANT(). 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 Past Anesthesia/Blood Transfusion Reactions: No Reported Reaction Past Psychological History: Anxiety Smoking Status: Never smoker Past Alcohol Use History: None Reported Past Drug Use History: None Reported - Past Family History Father Additional Family Medical History / Comment(s): Pt states father of motorcycle accident 1970 Mother Family Medical History: Coronary Artery Disease (CAD) Medications and Allergies Home Medications Medication Instructions Recorded Confirmed Type Aspirin 81 mg PO DAILY 09/27/13 02/21/22 History Multivitamin [Men's Multi-Vitamin] 1 tab PO DAILY 09/27/13 02/21/22 History mycophenolate mofetiL [Cellcept] 500 mg PO BID 09/27/13 02/21/22 History predniSONE 5 mg PO DAILY 09/27/13 02/21/22 History Tacrolimus [Prograf] 1 mg PO BID 01/03/14 02/21/22 History Dorzolamide 2% [Trusopt 2%] 1 drop LEFT EYE BID 12/02/14 02/21/22 History carvediloL [Coreg] 6.25 mg PO BID 02/15/18 02/21/22 History Brimonidine Tartrate/Timolol 1 drop BOTH EYES BID 11/25/21 02/21/22 History [Combigan 0.2%-0.5% Eye Drops] Calcium Carbonate [Tums] 500 mg PO TID PRN 11/25/21 02/21/22 History NIFEdipine XL [Procardia XL] 60 mg PO BID 11/25/21 02/21/22 History Gabapentin 300 mg PO HS #3 cap 01/19/22 02/21/22 Rx Magnesium Oxide [Mag-Ox] 400 mg PO DAILY tab 01/19/22 02/21/22 Rx hydrALAZINE HCL [Apresoline] 25 mg PO TID tab 01/19/22 02/21/22 Rx Bimatoprost [Lumigan 0.01% Ophth 1 drop RIGHT EYE HS 02/21/22 02/21/22 History Soln] Cholecalciferol [Vitamin D3 (25 25 mcg PO DAILY 02/21/22 02/21/22 History Mcg = 1000 Iu)] Folic Acid 0.8 mg PO DAILY 02/21/22 02/21/22 History Lovastatin [Mevacor] 20 mg PO DIRECTED 02/21/22 02/21/22 History Ondansetron [Zofran] 4 mg PO TID PRN 02/21/22 02/21/22 History Allergies Allergy/AdvReac Type Severity Reaction Status Date / Time latex Allergy Rash/Hives Verified 02/21/22 21:26 Penicillins Allergy Rash/Hives Verified 02/21/22 21:26 Physical Exam Vitals: Vital Signs Temp Pulse Resp BP Pulse Ox FiO2 02/22/22 07:14 30 02/22/22 07:00 99.9 F H 101 H 18 139/81 90 L 02/22/22 06:30 95 17 139/81 92 L 02/22/22 06:00 94 14 145/81 93 L 02/22/22 05:30 104 H 22 145/81 93 L 02/22/22 05:00 101 H 17 135/84 91 L 02/22/22 04:30 80 14 135/84 92 L 02/22/22 04:00 99.1 F 100 15 115/91 92 L 02/22/22 03:40 105 H 16 115/91 90 L 02/22/22 03:30 90 15 115/91 91 L 02/22/22 03:20 95 15 115/91 92 L 02/22/22 03:10 99.4 F 98 20 115/91 93 L 02/22/22 03:00 30 02/22/22 02:15 96 19 147/97 96 02/21/22 23:56 99.2 F 97 18 139/96 96 02/21/22 23:22 104 H 17 134/73 96 02/21/22 22:45 90 28 H 139/73 97 02/21/22 22:35 108 H 02/21/22 22:14 106 H 30 02/21/22 20:50 30 02/21/22 20:17 98.6 F 117 H 153/82 93 L 02/21/22 19:22 26 H 02/21/22 19:09 99.4 F 105 H 18 156/76 92 L Intake and Output 02/21/22 02/22/22 02/22/22 22:59 06:59 14:59 Intake Total 100 50 Output Total 800 Balance -700 50 Intake: IV 100 Cefepime 2 gm In Sodium 100 Chloride 0.9% 100 ml @ 25 mls/hr IVPB Q8H [facility] Rx#: [id number] Oral 50 Output: Urine 800 Other: Voiding Method Urinal # Voids 1 Weight 63.503 kg 66.6 kg Results CBC & Chem 7: 02/22/22 06:41 02/22/22 06:41 Labs: Abnormal Lab Results - Last 24 Hours (Table) 02/21/22 02/21/22 02/22/22 Range/Units 20:46 20:47 02:51 WBC 15.0 H (3.8-10.6) k/uL RBC 3.80 L (4.30-5.90) m/uL Hgb 11.4 L (13.0-17.5) gm/dL Hct 34.6 L (39.0-53.0) % RDW 17.9 H (11.5-15.5) % Plt Count 466 H (150-450) k/uL Neutrophils # (Manual) 11.70 H (1.3-7.7) k/uL Monocytes # (Manual) 1.65 H (0-1.0) k/uL Sodium 134 L (137-145) mmol/L Potassium 5.6 H (3.5-5.1) mmol/L Carbon Dioxide 21 L (22-30) mmol/L BUN 38 H (9-20) mg/dL Creatinine 1.44 H (0.66-1.25) mg/dL Glucose 138 H (74-99) mg/dL POC Glucose (mg/dL) 113 H (70-110) mg/dL 02/22/22 02/22/22 02/22/22 Range/Units 03:01 06:41 06:41 WBC (3.8-10.6) k/uL RBC 3.59 L (4.30-5.90) m/uL Hgb 10.7 L (13.0-17.5) gm/dL Hct 33.1 L (39.0-53.0) % RDW 18.0 H (11.5-15.5) % Plt Count (150-450) k/uL Neutrophils # (Manual) 8.40 H (1.3-7.7) k/uL Monocytes # (Manual) (0-1.0) k/uL Sodium 134 L (137-145) mmol/L Potassium (3.5-5.1) mmol/L Carbon Dioxide (22-30) mmol/L BUN 33 H (9-20) mg/dL Creatinine (0.66-1.25) mg/dL Glucose (74-99) mg/dL POC Glucose (mg/dL) 111 H (70-110) mg/dL Assessment and Plan Plan: 1patient presented to hospital with increasing shortness of breath and cough which is mostly dry in nature also complaining of lower extremity swelling concerning for possible fluid overload however the x-ray has been suspicious for right lower lobe pneumonia questionable gram-negative. 2patient with a chronic nonhealing wound to the left foot plantar aspect with a bone still palpable with a Q-tip deep culture has been obtained both aerobic and anaerobic to guide further debris therapy. 3we will check CRP procalcitonin NT proBNP. 4patient to continue with daptomycin and cefepime while waiting for the culture to finalize. 5local wound care to left foot wound with dry Aquacel silver dressing change daily We will follow on clinical condition and cultures to further adjust medication if needed Thank you for this consultation will follow this patient along with you
[2022-02-23] MEDS: CEFEPIME 2 GM in SODIUM CHLORIDE 0.9% 100 ML IVPB SCH ×3 (07:00→19:53)
[2022-02-23] MEDS: carvediloL 6.25 MG TAB PO SCH ×2 (07:03→16:51)
[2022-02-23 07:08] LABS: African American GFR (CKD) >90 (>60 ml/min/1.73 sqM); Anion Gap 11 mmol/L; Blood Urea Nitrogen 25 mg/dL (9-20); Calcium 8.6 mg/dL (8.4-10.2); Carbon Dioxide 24 mmol/L (22-30); Chloride 101 mmol/L (98-107); Glucose 75 mg/dL (74-99); Magnesium 1.8 mg/dL (1.6-2.3); Non-African American GFR(CKD) 82 (>60 ml/min/1.73 sqM); Potassium 4.4 mmol/L (3.5-5.1); Sodium 136 mmol/L (137-145)
[2022-02-23] MEDS: CHOLECALCIFEROL 25 MCG (1000 IU) TABLET PO SCH (08:07)
[2022-02-23] MEDS: TACROLIMUS 1 MG CAP PO SCH (08:07)
[2022-02-23] MEDS: hydrALAZINE HCL 25 MG TAB PO SCH ×3 (08:07→21:05)
[2022-02-23] MEDS: predniSONE 5 MG TAB PO SCH (08:07)
[2022-02-23] MEDS: MAGNESIUM OXIDE 400 MG TAB PO SCH (08:07)
[2022-02-23] MEDS: FUROSEMIDE 10 MG/ML 4 ML VIAL IV SCH ×2 (08:07→21:06)
[2022-02-23] MEDS: ASPIRIN 81 MG PO SCH (08:07)
[2022-02-23] MEDS: APIXABAN 2.5 MG TABLET PO SCH ×2 (08:07→21:05)
[2022-02-23] MEDS: TIMOLOL 0.5% OPHTH DROPS 5 ML BTL BOTH EYES SCH ×2 (08:08→21:05)
[2022-02-23] MEDS: DORZOLAMIDE HCL 2% DROPS 10 ML BTL LEFT EYE SCH ×2 (08:08→21:06)
[2022-02-23] MEDS: BRIMONIDINE TARTRATE 0.2% DROPS 5 ML BTL BOTH EYES SCH ×2 (08:08→21:06)
--- NOTE | 2022-02-23 08:38 | XR ---
Left foot HISTORY: Plantar ulcer 3 views of the left foot correlated to prior exam 01/09/2022 Exam is markedly abnormal as on prior. Decreased bone mineralization is present. Deformity of the fif th metatarsal may be postoperative status post amputation, correlate. Vascular calcifications are pre sent within the soft tissues. Marginal erosions questioned at the first metatarsophalangeal joint, di git is flexed and laterally angulated. Marked irregularity of the tarsal bones likely community engagement representative of Charcot foot with pes planus deformity as noted on prior, erosions again noted lateral aspect of t he cuboid. IMPRESSION: There is no significant interval change in the marked abnormalities within the foot. Cons ider MRI for better evaluation for possible osteomyelitis.
[2022-02-23 09:20] LABS: C Reactive Protein 7.1 mg/dL (<1.0)
--- NOTE | 2022-02-23 10:34 | P.PN ---
Subjective Patient is seen in follow-up for renal transplant management acute allograft dysfunction. Renal function better. Good urine output. Edema improving. Currently on 4 L nasal cannula. Blood pressure stable. No chest pain or shortness of breath. Vital signs are stable. General: Awake. No acute distress. HEENT: Head exam is unremarkable. On nasal cannula. LUNGS: Breath sounds decreased. HEART: Rate and Rhythm are regular. ABDOMEN: Soft, no distention. EXTREMITITES: 1+ edema. Objective - Vital Signs Vital signs: Vital Signs Temp 97.8 F 02/23/22 08:00 Pulse 83 02/23/22 08:00 Resp 19 02/23/22 08:00 BP 128/66 02/23/22 08:00 Pulse Ox 92 L 02/23/22 08:00 FiO2 30 02/22/22 07:14 Intake & Output 02/22/22 02/23/22 02/23/22 18:59 06:59 18:59 Intake Total 150 150 Output Total 1725 650 300 Balance -1575 -500 -300 Weight 65.3 kg Intake: IV 100 150 Cefepime 2 gm In Sodium 100 100 Chloride 0.9% 100 ml @ 25 mls/hr IVPB Q8H [facility] Rx#: [id number] DAPTOmycin 500 mg In 50 Sodium Chloride 0.9% 50 ml @ 100 mls/hr IVPB Q24H [facility] Rx#:[id number] Oral 50 Output: Urine 1725 650 300 Other: Voiding Method Urinal Urinal Urinal # Voids 1 # Bowel Movements 1 1 - Labs CBC & Chem 7: 02/22/22 06:41 02/23/22 06:14 Labs: Abnormal Lab Results - Last 24 Hours (Table) 02/23/22 02/23/22 Range/Units 06:14 06:14 Sodium 136 L (137-145) mmol/L BUN 25 H (9-20) mg/dL C-Reactive Protein 7.1 H (<1.0) mg/dL Procalcitonin 0.66 H (0.02-0.09) ng/mL Microbiology - Last 24 Hours (Table) 02/22/22 12:50 Gram Stain - Preliminary Foot - Left Wound Culture - Preliminary 02/21/22 19:53 Blood Culture - Preliminary Blood No Growth after 24 hours 02/21/22 19:53 Blood Culture - Preliminary Blood No Growth after 24 hours 02/22/22 12:50 Anaerobic Culture - Preliminary Foot - Left Assessment and Plan Plan: Assessment: 1. Acute allograft dysfunction mostly prerenal secondary to cardiorenal syndrome. Creatinine 1.44 on admission is 1.0 today. Baseline creatinine near 1. 2. Status post simultaneous kidney pancreas transplant in 1997 from [facility]. 3. Acute hypoxic respiratory failure secondary to fluid overload. Better. 4. Foot infection/osteomyelitis on antibiotics. ?Pneumonia. 5. Hypertension with chronic kidney disease. Stable. Plan: Maintain IV Lasix. Transition to oral diuretics in the next 24-48 hours. Repeat chest x-ray. Antibiotics per ID. Prograf level 9.7. Decrease dose of Prograf to 1 mg once daily. Will hold CellCept if any signs of worsening infection. EF preserved. Continue to monitor renal function and urine output.
--- NOTE | 2022-02-23 10:41 | P.PN ---
Subjective Progress Note Date: 02/23/22 Principal diagnosis: SOB Hospital Course: 61-year-old male with history of ESRD status post renal and pancreatic transplant in 1997, peripheral vascular disease, left foot osteomyelitis presented with shortness of breath. Patient in acute hypoxic respiratory failure likely in the setting of acute CHF exacerbation and possible pneumonia. He was initially on BiPAP, transfer to ICU, now on 4 L nasal cannula. Currently being treated with IV antibiotics, followed by infectious disease, cardiology, pulmonology. Subjective: Patient seen and examined. No acute events overnight. He denies any worsening shortness of breath. He denies any chest pain, abdominal pain, urinary or bowel problems. Pertinent positives and negatives as discussed above, a complete review of systems was performed and all other systems are negative. Vitals Signs Reviewed. General: no distress, appears at stated age, normal weight Head: atraumatic, normocephalic, symmetric Eyes: EOMI, no lid lag, anicteric sclera, pupils equal round reactive to light ENT: Nose and ears atraumatic Neck: supple Mouth: no lip lesion, mucus membranes moist Cardiovascular: S1S2 reg, no murmur, 2+ bilateral lower extremity pitting edema Lungs: Bibasilar scattered rales and rhonchi, no wheezing, no accessory muscle use, 4 L nasal cannula Abdominal: soft, nontender to palpation, no guarding Ext: muscle strength 4 out of 5 in all 4 extremities grossly, no gross muscle atrophy, no contractures, left heel covered in gauze Neuro: CN II-XI grossly intact, no gross focal neuro deficits Psych: Alert, oriented, appropriate affect Assessment and Plan: Acute hypoxic respiratory failure Acute diastolic CHF exacerbation Possible community-acquired pneumonia SIRS, likely sepsis with primary source being left foot and pneumonia -Continue to remain off oxygen -On IV cefepime and daptomycin -On IV Lasix -Repeat echo showed LVEF 50-55% -Cardiology, pulmonology, ID following Left foot osteomyelitis -Cultures pending -Continue daptomycin -ID following Status post kidney/pancreas transplant, 1997 Acute kidney injury, likely secondary to cardiorenal syndrome -Nephrology following -Creatinine improved with diuretics -Continue prednisone and Prograf, CellCept New onset Atrial flutter/fibrillation -On eliquis -On beta owen Hypertension History of diabetes, diabetic neuropathy -home meds DVT ppx: eliquis Code status: Full code Anticipated discharge place: Home Anticipated discharge time: 2+ days Objective - Vital Signs Vital signs: Vital Signs Temp 97.8 F 02/23/22 08:00 Pulse 83 02/23/22 08:00 Resp 19 02/23/22 08:00 BP 128/66 02/23/22 08:00 Pulse Ox 92 L 02/23/22 08:00 FiO2 30 02/22/22 07:14 Intake & Output 02/22/22 02/23/22 02/23/22 18:59 06:59 18:59 Intake Total 150 150 Output Total 7954 772 2940 Balance -1575 -500 -1250 Weight 65.3 kg Intake: IV 100 150 Cefepime 2 gm In Sodium 100 100 Chloride 0.9% 100 ml @ 25 mls/hr IVPB Q8H [facility] Rx#: [id number] DAPTOmycin 500 mg In 50 Sodium Chloride 0.9% 50 ml @ 100 mls/hr IVPB Q24H [facility] Rx#:[id number] Oral 50 Output: Urine [id number] Other: Voiding Method Urinal Urinal Urinal # Voids 1 # Bowel Movements 1 1 - Labs CBC & Chem 7: 02/22/22 06:41 02/23/22 06:14 Labs: Abnormal Lab Results - Last 24 Hours (Table) 02/23/22 02/23/22 Range/Units 06:14 06:14 Sodium 136 L (137-145) mmol/L BUN 25 H (9-20) mg/dL C-Reactive Protein 7.1 H (<1.0) mg/dL Procalcitonin 0.66 H (0.02-0.09) ng/mL Microbiology - Last 24 Hours (Table) 02/22/22 12:50 Gram Stain - Preliminary Foot - Left Wound Culture - Preliminary 02/21/22 19:53 Blood Culture - Preliminary Blood No Growth after 24 hours 02/21/22 19:53 Blood Culture - Preliminary Blood No Growth after 24 hours 02/22/22 12:50 Anaerobic Culture - Preliminary Foot - Left
--- NOTE | 2022-02-23 11:47 | P.PN ---
Subjective Progress Note Date: 02/23/22 Principal diagnosis: Shortness of breath. Pulmonary consult dated 02/22/2022. 61-year-old male who presented to the emergency department, with shortness of breath. The patient hadn't been feeling well for about 2 days prior to admission. In addition, he had some weight gain, increasing abdominal girth, and bilateral lower extremity swelling. The patient was recently being treated with Flagyl, as an outpatient, for a left foot ulcer. He was in the hospital last month for bacteremia and respiratory failure. He denied any chest pain or chest discomfort. No abdominal pain, nausea, vomiting, or diarrhea. The patient has a significant history of kidney and pancreas transplant, 1997, and uterus he was constant. In addition, he has a history of cardiac arrhythmia, CHF, and COPD. I used to see the patient on a regular basis in the office, but if not seen him recently. White count 10.5, hemoglobin 10.7, hematocrit 33.1, and platelet count 369,000. Sodium 134, potassium 5, chlorides 103, CO2 22, BUN 33, creatinine 1.19. The N-terminal proBNP was 6870. Troponin was normal. Urine was negative. Testing for epps virus was negative. Chest x-ray showed findings consistent with CHF. Progress note dated 02/23/2022. 61-year-old male seen in room 263. He was initially seen yesterday in consultation. The patient had increasing shortness of breath, weight gain, extremity edema, and increasing abdominal girth, all consistent with fluid overload/CHF. The patient's feeling much better now. He is currently resting comfortably in the intensive care unit. He's on 4 L of oxygen. He is getting saline at 10 mL an hour. Antibiotics are daptomycin and cefepime, as per infectious diseases. We can DC the BiPAP from the room. Sodium 136, potassium 4.4, chloride 101, CO2 24, anion gap 11, BUN 25, and creatinine 1. C-reactive protein is 7.1, N-terminal proBNP is 6410. Pro-calcitonin level is 0.66. Objective - Vital Signs Vital signs: Vital Signs Temp 97.8 F 02/23/22 08:00 Pulse 83 02/23/22 08:00 Resp 19 02/23/22 08:00 BP 128/66 02/23/22 08:00 Pulse Ox 92 L 10/26/22 08:00 FiO2 30 02/22/22 07:14 Intake & Output 02/22/22 02/23/22 02/23/22 18:59 06:59 18:59 Intake Total 150 150 Output Total 6063 894 2129 Balance -1575 -500 -1250 Weight 65.3 kg Intake: IV 100 150 Cefepime 2 gm In Sodium 100 100 Chloride 0.9% 100 ml @ 25 mls/hr IVPB Q8H [facility] Rx#: [id number] DAPTOmycin 500 mg In 50 Sodium Chloride 0.9% 50 ml @ 100 mls/hr IVPB Q24H [facility] Rx#:[id number] Oral 50 Output: Urine [id number] Other: Voiding Method Urinal Urinal Urinal # Voids 1 # Bowel Movements 1 1 - Exam No acute distress, oriented 3. Currently on 4 L of oxygen. HEENT examination is grossly unremarkable. Neck supple. Full range of motion. No adenopathy thyromegaly or neck vein distention. Cardiovascular examination reveals regular rhythm rate. S1-S2 normal. No S3 or S4. No discernible murmur noted. Heart rate 83 bpm. Lungs reveal bibasilar crackles. Scattered rhonchi are noted. Saturations are 92% on 4 L. No wheezes. Abdomen soft, with bowel sounds, but distended. No tenderness. Extremities reveal some mild edema. No cyanosis or clubbing. Plantar ulcer is wrapped. Skin has multiple areas of ecchymoses. Neurologic examination is brief but nonfocal. - Labs CBC & Chem 7: 02/22/22 06:41 02/23/22 06:14 Labs: Abnormal Lab Results - Last 24 Hours (Table) 02/23/22 02/23/22 Range/Units 06:14 06:14 Sodium 136 L (137-145) mmol/L BUN 25 H (9-20) mg/dL C-Reactive Protein 7.1 H (<1.0) mg/dL Procalcitonin 0.66 H (0.02-0.09) ng/mL Microbiology - Last 24 Hours (Table) 02/22/22 12:50 Gram Stain - Preliminary Foot - Left Wound Culture - Preliminary 02/21/22 19:53 Blood Culture - Preliminary Blood No Growth after 24 hours 02/21/22 19:53 Blood Culture - Preliminary Blood No Growth after 24 hours 02/22/22 12:50 Anaerobic Culture - Preliminary Foot - Left Assessment and Plan Assessment: Acute hypoxemic respiratory failure, requiring BiPAP therapy, secondary to fluid overload/CHF. Status post kidney/pancreas transplant, 1997, [facility]. Nonhealing ulcer, lower extremities. History of diabetes mellitus, and diabetic neuropathy History of skin cancer. Gen. medical debility. Anemia of chronic disease Plan: Plan dated 02/22/2022. The patient was admitted to the intensive care unit, as an overflow patient, for 3 S. The patient is currently on daptomycin, as well as prednisone and Prograf, and cefepime. Additional recommendations and suggestions are forthcoming. Prognosis is guarded. The patient is on Lasix. He certainly is doing much better. He is currently not on BiPAP. We will continue to follow make recommendations along the way. Plan dated 02/23/2022. The patient is doing a bit better today. He's been weaned down to 4 L. He's currently on cefepime and daptomycin, for his lower extremity ulcers. He's feeling much less short of breath. He did not use BiPAP last night. Labs, x- rays, and medications are reviewed. We will continue to follow and make recommendations along the way. Prognosis is guarded. Time with Patient: Less than 30
--- NOTE | 2022-02-23 12:26 | P.PN ---
Subjective Progress Note Date: 02/23/22 Principal diagnosis: Heart failure with preserved ejection fraction This is a 61-year-old gentleman with a past medical history significant for hypertension as well as dyslipidemia as well as history of kidney and pancreatic transplant in 1997 as well as history of critical limb ischemia of the left foot presented to the hospital complaining of shortness of breath. The patient was seen this morning in the intensive care unit where he was on BiPAP. He is somewhat poor historian. Apparently the patient presented to the emergency department complaining of shortness of breath for the last 2 weeks. The shortness of breath was not associated with any chest pain or chest discomfort nor lower extremities edema. No fever or chills before he presented to the hospital but the patient was a spiking fever in the intensive care unit when he was seen this morning with a temperature of 101. No symptoms of any chest pain or chest discomfort. No cough or sputum production. Further investigation was performed in the emergency department including a chest x-ray which showed finding consistent with possible pneumonia with a component of heart failure with bilateral pleural effusion. NT proBNP came in to be elevated at almost 8000. Also an EKG was performed and showed what it seems to be atrial flutter/atrial fibrillation with overall controlled heart rate. According to the patient no history of coronary artery disease and no heart failure and no cardiac arrhythmia and never seen any screener operator before. The patient had multiple hospital admission in the past but never seen by cardiology service. He underwent an echo back in 2021 and that revealed preserved left ventricular systolic function was no significant valvular abnormalities. He is in process of having another echo during this admission. When he was seen and evaluated this morning he does have mild edema and he also does have diminished breathing sounds bilaterally/wheezing. Currently he is on Lasix. He is also on BiPAP February 232021 The patient was seen this morning. He is doing better. The shortness of breath is better. The edema is better as well. He has been diuresing on Lasix IV. He underwent an echo which revealed preserved left ventricle systolic function was no significant valvular abnormalities. I will suggest continue IV Lasix for additional 24 hours would continue monitoring the kidney function and electrolytes and follow-up with the patient. Objective - Vital Signs Vital signs: Vital Signs Temp 97.8 F 02/23/22 08:00 Pulse 83 02/23/22 08:00 Resp 19 02/23/22 08:00 BP 128/66 02/23/22 08:00 Pulse Ox 92 L 02/23/22 08:00 FiO2 30 02/22/22 07:14 Intake & Output 02/22/22 02/23/22 02/23/22 18:59 06:59 18:59 Intake Total 150 150 Output Total 1232 116 4089 Balance -6698 -500 -1650 Weight 65.3 kg Intake: IV 100 150 Cefepime 2 gm In Sodium 100 100 Chloride 0.9% 100 ml @ 25 mls/hr IVPB Q8H [facility] Rx#: [id number] DAPTOmycin 500 mg In 50 Sodium Chloride 0.9% 50 ml @ 100 mls/hr IVPB Q24H [facility] Rx#:[id number] Oral 50 Output: Urine [id number] Other: Voiding Method Urinal Urinal Urinal # Voids 1 # Bowel Movements 1 1 - Constitutional General appearance: Present: no acute distress - Respiratory Respiratory: bilateral: diminished - Cardiovascular Rhythm: regular Heart sounds: normal: S1, S2 - Labs CBC & Chem 7: 02/22/22 06:41 02/23/22 06:14 Labs: Abnormal Lab Results - Last 24 Hours (Table) 02/23/22 02/23/22 Range/Units 06:14 06:14 Sodium 136 L (137-145) mmol/L BUN 25 H (9-20) mg/dL C-Reactive Protein 7.1 H (<1.0) mg/dL Procalcitonin 0.66 H (0.02-0.09) ng/mL Microbiology - Last 24 Hours (Table) 02/22/22 12:50 Gram Stain - Preliminary Foot - Left Wound Culture - Preliminary 02/21/22 19:53 Blood Culture - Preliminary Blood No Growth after 24 hours 02/21/22 19:53 Blood Culture - Preliminary Blood No Growth after 24 hours 02/22/22 12:50 Anaerobic Culture - Preliminary Foot - Left Assessment and Plan Assessment: Assessment Shortness of breath likely related to a combination of pneumonia and heart failure Heart failure exacerbation was evidence off left more than right failure related to heart failure with preserved ejection fraction Bilateral pleural effusion Multiple comorbid conditions Plan Continue the current dose of Lasix IV Continue monitor the kidney function and electrolytes The echo was reviewed and showed preserved left ventricular systolic function Rule out acute coronary event Follow-up with the patient
[2022-02-23] MEDS: GABAPENTIN 300 MG CAP PO SCH (21:05)
[2022-02-23] MEDS: DAPTOmycin 500 MG in SODIUM CHLORIDE 0.9% 50 ML IVPB SCH (21:20)
[2022-02-24] MEDS: CEFEPIME 2 GM in SODIUM CHLORIDE 0.9% 100 ML IVPB SCH ×3 (03:47→20:01)
[2022-02-24 04:42] LABS: African American GFR (CKD) >90 (>60 ml/min/1.73 sqM); Anion Gap 11 mmol/L; Blood Urea Nitrogen 24 mg/dL (9-20); Calcium 8.4 mg/dL (8.4-10.2); Carbon Dioxide 28 mmol/L (22-30); Chloride 97 mmol/L (98-107); Glucose 108 mg/dL (74-99); Magnesium 1.7 mg/dL (1.6-2.3); Non-African American GFR(CKD) 78 (>60 ml/min/1.73 sqM); Potassium 3.9 mmol/L (3.5-5.1); Sodium 136 mmol/L (137-145)
[2022-02-24] MEDS: carvediloL 6.25 MG TAB PO SCH ×2 (07:00→16:55)
--- NOTE | 2022-02-24 07:39 | P.PN ---
Subjective Progress Note Date: 02/24/22 Principal diagnosis: Heart failure with preserved ejection fraction This is a 61-year-old gentleman with a past medical history significant for hypertension as well as dyslipidemia as well as history of kidney and pancreatic transplant in 1997 as well as history of critical limb ischemia of the left foot presented to the hospital complaining of shortness of breath. The patient was seen this morning in the intensive care unit where he was on BiPAP. He is somewhat poor historian. Apparently the patient presented to the emergency department complaining of shortness of breath for the last 2 weeks. The shortness of breath was not associated with any chest pain or chest discomfort nor lower extremities edema. No fever or chills before he presented to the hospital but the patient was a spiking fever in the intensive care unit when he was seen this morning with a temperature of 101. No symptoms of any chest pain or chest discomfort. No cough or sputum production. Further investigation was performed in the emergency department including a chest x-ray which showed finding consistent with possible pneumonia with a component of heart failure with bilateral pleural effusion. NT proBNP came in to be elevated at almost 8000. Also an EKG was performed and showed what it seems to be atrial flutter/atrial fibrillation with overall controlled heart rate. According to the patient no history of coronary artery disease and no heart failure and no cardiac arrhythmia and never seen any can capper before. The patient had multiple hospital admission in the past but never seen by cardiology service. He underwent an echo back in 2021 and that revealed preserved left ventricular systolic function was no significant valvular abnormalities. He is in process of having another echo during this admission. When he was seen and evaluated this morning he does have mild edema and he also does have diminished breathing sounds bilaterally/wheezing. Currently he is on Lasix. He is also on BiPAP February 232021 The patient was seen this morning. He is doing better. The shortness of breath is better. The edema is better as well. He has been diuresing on Lasix IV. He underwent an echo which revealed preserved left ventricle systolic function was no significant valvular abnormalities. I will suggest continue IV Lasix for additional 24 hours would continue monitoring the kidney function and electrolytes and follow-up with the patient. February 242021 The patient was seen this morning. He is overall doing better. He is converted to normal sinus mechanism. He was started on oral anticoagulation yesterday. He continues to be on IV Lasix. He seems to be somewhat euvolemic on examination. Chest x-ray is in process to be done. Currently is on IV Lasix. We will consider switching to by mouth Lasix in the next 24 hour Objective - Vital Signs Vital signs: Vital Signs Temp 98.4 F 02/24/22 04:00 Pulse 86 02/24/22 04:00 Resp 18 02/24/22 04:00 BP 123/58 02/24/22 04:00 Pulse Ox 94 L 02/24/22 07:33 FiO2 30 02/22/22 07:14 Intake & Output 02/23/22 02/24/22 02/24/22 18:59 06:59 18:59 Intake Total 250 Output Total 1825 700 200 Balance -1825 -450 -200 Weight 65 kg Intake: IV 250 Cefepime 2 gm In Sodium 200 Chloride 0.9% 100 ml @ 25 mls/hr IVPB Q8H [facility] Rx#: [id number] DAPTOmycin 500 mg In 50 Sodium Chloride 0.9% 50 ml @ 100 mls/hr IVPB Q24H [facility] Rx#:[id number] Output: Urine 1825 700 200 Other: Voiding Method Urinal Urinal - Constitutional General appearance: Present: no acute distress - Respiratory Respiratory: bilateral: diminished - Cardiovascular Rhythm: regular Heart sounds: normal: S1, S2 - Labs CBC & Chem 7: 02/22/22 06:41 02/24/22 03:29 Labs: Abnormal Lab Results - Last 24 Hours (Table) 02/23/22 02/23/22 02/24/22 Range/Units 06:14 06:14 03:29 Sodium 136 L (137-145) mmol/L Chloride 97 L (98-107) mmol/L BUN 24 H (9-20) mg/dL Glucose 108 H (74-99) mg/dL C-Reactive Protein 7.1 H (<1.0) mg/dL Procalcitonin 0.66 H (0.02-0.09) ng/mL Microbiology - Last 24 Hours (Table) 02/21/22 19:53 Blood Culture - Preliminary Blood No Growth after 48 hours 02/21/22 19:53 Blood Culture - Preliminary Blood No Growth after 48 hours 02/22/22 12:50 Gram Stain - Preliminary Foot - Left Wound Culture - Preliminary Assessment and Plan Assessment: Assessment Shortness of breath likely related to a combination of pneumonia and heart failure Heart failure exacerbation was evidence off left more than right failure related to heart failure with preserved ejection fraction Bilateral pleural effusion Multiple comorbid conditions Plan Consider switching the patient to by mouth Lasix Continue monitor the kidney function and electrolytes The echo was reviewed and showed preserved left ventricular systolic function Follow-up with the patient
--- NOTE | 2022-02-24 08:20 | XR ---
EXAMINATION TYPE: XR chest 1V DATE OF EXAM: 02/24/2022 COMPARISON: Chest x-ray 02/21/2022 HISTORY: Shortness of breath TECHNIQUE: Single frontal view of the chest is obtained. FINDINGS: There is a port in the left pectoral region, catheter tip courses into the region of the l eft innominate vein by a left jugular approach. No evident pneumothorax. Interstitium is increased. P atchy densities are present at the lung bases obscuring the hemidiaphragms. Prominence of the pulmona ry artery is questioned. The aorta is dense. Cardiac mediastinal silhouette is likely stable. Central vascularity appears prominently. There are overlying leads. Bones are stable. IMPRESSION: Correlate for possible pneumonia versus pulmonary edema, congestive heart failure
[2022-02-24] MEDS ORDERED: MAGNESIUM SULFATE-D5W PMX 1 GM in DEXTROSE/WATER 1 100ML.BAG IVPB ONE (08:28)
[2022-02-24] MEDS ORDERED: Potassium Replacement Protocol 1 EACH MISC MISCELLANE PRN (08:28)
[2022-02-24] MEDS ORDERED: POTASSIUM CHLORIDE ER 20 MEQ TAB.ER PO SCH (09:00)
[2022-02-24] MEDS: APIXABAN 2.5 MG TABLET PO SCH ×2 (09:10→21:04)
[2022-02-24] MEDS: BRIMONIDINE TARTRATE 0.2% DROPS 5 ML BTL BOTH EYES SCH ×2 (09:10→21:06)
[2022-02-24] MEDS: DORZOLAMIDE HCL 2% DROPS 10 ML BTL LEFT EYE SCH ×2 (09:10→21:06)
[2022-02-24] MEDS: ASPIRIN 81 MG PO SCH (09:10)
[2022-02-24] MEDS: TIMOLOL 0.5% OPHTH DROPS 5 ML BTL BOTH EYES SCH ×2 (09:10→21:06)
[2022-02-24] MEDS: CHOLECALCIFEROL 25 MCG (1000 IU) TABLET PO SCH (09:10)
[2022-02-24] MEDS: FUROSEMIDE 10 MG/ML 4 ML VIAL IV SCH ×2 (09:11→21:05)
[2022-02-24] MEDS: hydrALAZINE HCL 25 MG TAB PO SCH ×3 (09:11→21:04)
[2022-02-24] MEDS: predniSONE 5 MG TAB PO SCH (09:11)
[2022-02-24] MEDS: MAGNESIUM OXIDE 400 MG TAB PO SCH (09:11)
[2022-02-24] MEDS: TACROLIMUS 1 MG CAP PO SCH (09:12)
--- NOTE | 2022-02-24 09:21 | P.PN ---
Subjective Patient is seen in follow-up for renal transplant management acute allograft dysfunction. Renal function stable. Good urine output. Edema improved. Currently on 2 L nasal cannula. Blood pressure stable. No chest pain or shortness of breath. States he's been eating. On IV Lasix. Vital signs are stable. General: Awake. No acute distress. HEENT: Head exam is unremarkable. On nasal cannula. LUNGS: Breath sounds decreased. HEART: Rate and Rhythm are regular. ABDOMEN: Soft, no distention. EXTREMITITES: Trace edema. Objective - Vital Signs Vital signs: Vital Signs Temp 98.4 F 02/24/22 04:00 Pulse 86 02/24/22 04:00 Resp 18 02/24/22 04:00 BP 123/58 02/24/22 04:00 Pulse Ox 94 L 02/24/22 07:33 FiO2 30 02/22/22 07:14 Intake & Output 02/23/22 02/24/22 02/24/22 18:59 06:59 18:59 Intake Total 250 Output Total 1825 700 200 Balance -1825 -450 -200 Weight 65 kg Intake: IV 250 Cefepime 2 gm In Sodium 200 Chloride 0.9% 100 ml @ 25 mls/hr IVPB Q8H [facility] Rx#: [id number] DAPTOmycin 500 mg In 50 Sodium Chloride 0.9% 50 ml @ 100 mls/hr IVPB Q24H [facility] Rx#:[id number] Output: Urine 1825 700 200 Other: Voiding Method Urinal Urinal - Labs CBC & Chem 7: 02/22/22 06:41 02/24/22 03:29 Labs: Abnormal Lab Results - Last 24 Hours (Table) 02/23/22 02/24/22 Range/Units 06:14 03:29 Sodium 136 L (137-145) mmol/L Chloride 97 L (98-107) mmol/L BUN 24 H (9-20) mg/dL Glucose 108 H (74-99) mg/dL C-Reactive Protein 7.1 H (<1.0) mg/dL Microbiology - Last 24 Hours (Table) 02/21/22 19:53 Blood Culture - Preliminary Blood No Growth after 48 hours 02/21/22 19:53 Blood Culture - Preliminary Blood No Growth after 48 hours 02/22/22 12:50 Gram Stain - Preliminary Foot - Left Wound Culture - Preliminary Assessment and Plan Plan: Assessment: 1. Acute allograft dysfunction mostly prerenal secondary to cardiorenal syndrome. Creatinine 1.44 on admission is 1.05 today. Baseline creatinine near 1. 2. Status post simultaneous kidney pancreas transplant in [address] [facility] [place]. 3. Acute hypoxic respiratory failure secondary to fluid overload. Better. 4. Foot infection/osteomyelitis on antibiotics. 5. Hypertension with chronic kidney disease. Stable. Plan: Maintain IV Lasix. Transition to oral diuretics tomorrow. Antibiotics per ID. Prograf level 9.7 dated 02/22/2022. Dose of Prograf decreased to 1 mg once daily. Will hold CellCept if any signs of worsening infection. EF preserved. Continue to monitor renal function and urine output. Replace electrolytes per protocol.
--- NOTE | 2022-02-24 09:48 | CDI ---
Documentation Clarification Form Date: 02/24/2022 09:31:19 AM From: Anna QuinnPÉREZ soria, CCDS Admit Date: 02/21/2022 09:31:00 PM Patient Name: Rohan Plascencia Visit Number: [id number] Discharge Date: ATTENTION: The Clinical Documentation Specialists (CDI) and [facility] Coding Staff appreciate your assistance in clarifying documentation. Please respond to the clarification below the line at the bottom and electronically sign. The CDI & [facility] Coding staff will review the response and follow-up if needed. Please note: Queries are made part of the Legal Health Record. If you have any questions, please contact the author of this message via ITS. Dr. Ryan Galvez: Atrial Fibrillation and Atrial Flutter is documented in the 02/22 Cardiology Consult per the 02/21 EKG done in the ED. New onset Atrial Flutter/Fibrillation is also documented in the Attending Physician's Progress Note. Additional clarification regarding the Type of Atrial Fibrillation and the Type of Atrial Flutter is requested. History/Risk Factors per the 02/22 H/P: ESRD status post Kidney & Pancreas Transplant in 1997, PVD, DM prior to transplants, Diabetic Neuropathy, MRSA right heel wound, history of multiple lower extremity ulcers, has a port in left chest for antibiotics, Skin Cancer, Anxiety. Clinical Indicators: Presented to the ED on 02/21 with SOB, cough, fever, lower extremity pain, nausea and vomiting. Admit with Congestive Heart Failure, Pneumonia, Respiratory Failure and CKD. Per Attending Progress Note 02/23: Sepsis with source Left Foot and Pneumonia, Left Foot Osteomyelitis, ANA. 02/21 VS: T 99.4, P 105, R 18 - 26 (sob, labored), BP 156/76, PO 92 RA - 93 2Lnc - 30% BiPAP, BMI: 22.4. 02/21 EKG: R 108 Atrial Fibrillation w/RVR Treatment 02/21: Telemetry, Blood culture, O2 2Lnc, IV Cefepime 100 mls @ 200 mls/hr x1, INH Ventolin 2.5 mg x1, INH Duoneb 3 ml x1, IV Lasix 40 mg x1, IV Daptomycin 50 mls @ 100 mls/hr x1, IV Calcium Gluconate/Na Chl 100 mls @ 100 mls/hr x1. Please clarify the type of Atrial Fibrillation and/or the type of Atrial flutter, if known: Atrial Fibrillation: [ ] Chronic [ ] Permanent [ x ] Paroxysmal [ ] Persistent [ ] Atrial Fibrillation ruled out [ ] Other, please specify [ ] Unable to determine Atrial Flutter: [ ] Atypical [ ] Type I [ ] Type II [ ] Typical [ ] Atrial flutter ruled out [ ] Other, please specify: [ ] Unable to determine (Template Last Revised: August 2020) MTDD
--- NOTE | 2022-02-24 11:43 | P.PN ---
Subjective Progress Note Date: 02/24/22 Principal diagnosis: SOB Hospital Course: 61-year-old male with history of ESRD status post renal and pancreatic transplant in 1997, peripheral vascular disease, left foot osteomyelitis presented with shortness of breath. Patient in acute hypoxic respiratory f ailure likely in the setting of acute CHF exacerbation and possible pneumonia. He was initially on BiPAP, transfer to ICU, now on 2 L nasal cannula. Currently being treated with IV antibiotics, followed by infectious disease, cardiology, pulmonology. Subjective: Patient seen and examined. No acute events overnight. He denies any worsening shortness of breath. He denies any chest pain, abdominal pain, urinary or bowel problems. Pertinent positives and negatives as discussed above, a complete review of systems was performed and all other systems are negative. Vitals Signs Reviewed. General: no distress, appears at stated age, normal weight Head: atraumatic, normocephalic, symmetric Eyes: EOMI, no lid lag, anicteric sclera, pupils equal round reactive to light ENT: Nose and ears atraumatic Neck: supple Mouth: no lip lesion, mucus membranes moist Cardiovascular: S1S2 reg, no murmur, 2+ bilateral lower extremity pitting edema Lungs: Bibasilar scattered rales and rhonchi, no wheezing, no accessory muscle use, 2 L nasal cannula Abdominal: soft, nontender to palpation, no guarding Ext: muscle strength 4 out of 5 in all 4 extremities grossly, no gross muscle atrophy, no contractures, left heel covered in gauze Neuro: CN II-XI grossly intact, no gross focal neuro deficits Psych: Alert, oriented, appropriate affect Assessment and Plan: Acute hypoxic respiratory failure Acute diastolic CHF exacerbation Possible community-acquired pneumonia SIRS, likely sepsis with primary source being left foot and pneumonia -Continue to wean off oxygen -On IV cefepime and daptomycin -On IV Lasix, transition to PO tomorrow per nephrology -Repeat echo showed LVEF 50-55% -Cardiology, pulmonology, ID following Left foot osteomyelitis -Cultures pending -Continue daptomycin -ID following Status post kidney/pancreas transplant, 1997 Acute kidney injury, likely secondary to cardiorenal syndrome - now stable -Nephrology following -Creatinine improved with diuretics -Continue prednisone and Prograf, CellCept -decreased prograf to 1 mg daily New onset Atrial flutter/fibrillation -On eliquis -On beta owen Hypertension History of diabetes, diabetic neuropathy -home meds DVT ppx: eliquis Code status: Full code Anticipated discharge place: Home with home care Anticipated discharge time: 2+ days Objective - Vital Signs Vital signs: Vital Signs Temp 99.0 F 02/24/22 08:00 Pulse 89 02/24/22 08:00 Resp 14 02/24/22 08:00 BP 138/68 02/24/22 08:00 Pulse Ox 93 L 02/24/22 08:00 FiO2 30 02/22/22 07:14 Intake & Output 02/23/22 02/24/22 02/24/22 18:59 06:59 18:59 Intake Total 250 Output Total 1825 700 200 Balance -1825 -450 -200 Weight 65 kg Intake: IV 250 Cefepime 2 gm In Sodium 200 Chloride 0.9% 100 ml @ 25 mls/hr IVPB Q8H [facility] Rx#: [id number] DAPTOmycin 500 mg In 50 Sodium Chloride 0.9% 50 ml @ 100 mls/hr IVPB Q24H [facility] Rx#:[id number] Output: Urine 1825 700 200 Other: Voiding Method Urinal Urinal Urinal - Labs CBC & Chem 7: 02/22/22 06:41 02/24/22 03:29 Labs: Abnormal Lab Results - Last 24 Hours (Table) 02/24/22 Range/Units 03:29 Sodium 136 L (137-145) mmol/L Chloride 97 L (98-107) mmol/L BUN 24 H (9-20) mg/dL Glucose 108 H (74-99) mg/dL Microbiology - Last 24 Hours (Table) 02/22/22 12:50 Gram Stain - Preliminary Foot - Left Wound Culture - Preliminary 02/21/22 19:53 Blood Culture - Preliminary Blood No Growth after 48 hours 02/21/22 19:53 Blood Culture - Preliminary Blood No Growth after 48 hours
--- NOTE | 2022-02-24 12:01 | P.PN ---
Subjective Progress Note Date: 02/24/22 Principal diagnosis: Shortness of breath. Pulmonary consult dated 02/22/2022. 61-year-old male who presented to the emergency department, with shortness of breath. The patient hadn't been feeling well for about 2 days prior to admission. In addition, he had some weight gain, increasing abdominal girth, and bilateral lower extremity swelling. The patient was recently being treated with Flagyl, as an outpatient, for a left foot ulcer. He was in the hospital last month for bacteremia and respiratory failure. He denied any chest pain or chest discomfort. No abdominal pain, nausea, vomiting, or diarrhea. The patient has a significant history of kidney and pancreas transplant, 1997, and uterus he was constant. In addition, he has a history of cardiac arrhythmia, CHF, and COPD. I used to see the patient on a regular basis in the office, but if not seen him recently. White count 10.5, hemoglobin 10.7, hematocrit 33.1, and platelet count 369,000. Sodium 134, potassium 5, chlorides 103, CO2 22, BUN 33, creatinine 1.19. The N-terminal proBNP was 6870. Troponin was normal. Urine was negative. Testing for epps virus was negative. Chest x-ray showed findings consistent with CHF. Progress note dated 02/23/2022. 61-year-old male seen in room 263. He was initially seen yesterday in consultation. The patient had increasing shortness of breath, weight gain, extremity edema, and increasing abdominal girth, all consistent with fluid overload/CHF. The patient's feeling much better now. He is currently resting comfortably in the intensive care unit. He's on 4 L of oxygen. He is getting saline at 10 mL an hour. Antibiotics are daptomycin and cefepime, as per infectious diseases. We can DC the BiPAP from the room. Sodium 136, potassium 4.4, chloride 101, CO2 24, anion gap 11, BUN 25, and creatinine 1. C-reactive protein is 7.1, N-terminal proBNP is 6410. Pro-calcitonin level is 0.66. Progress note dated 02/24/2022. 61-year-old male, seen in consultation 2 days ago. He seen again today in room 263. He came in with a symptom complex consistent with CHF. The patient had weight gain, lower extremity edema, and increasing abdominal girth, along with shortness of breath. He's feeling much better. He is on between 2-3 L of oxygen. Is getting saline at KVO. The patient is stable to be transferred out to the general medical floor, without telemetry in my opinion. Labs today include a sodium 136, potassium 3.9, chlorides 97, CO2 28, normal anion gap, BUN 24, and creatinine 1.05. N-terminal proBNP from yesterday was still elevated at 6410. Chest x-ray continues to show diffuse bilateral ribs, consistent with fluid overload. Objective - Vital Signs Vital signs: Vital Signs Temp 99.0 F 02/24/22 08:00 Pulse 89 02/24/22 08:00 Resp 14 02/24/22 08:00 BP 138/68 02/24/22 08:00 Pulse Ox 93 L 02/24/22 08:00 FiO2 30 02/22/22 07:14 Intake & Output 02/23/22 02/24/22 02/24/22 18:59 06:59 18:59 Intake Total 250 Output Total 1825 700 200 Balance -1825 -450 -200 Weight 65 kg Intake: IV 250 Cefepime 2 gm In Sodium 200 Chloride 0.9% 100 ml @ 25 mls/hr IVPB Q8H [facility] Rx#: [id number] DAPTOmycin 500 mg In 50 Sodium Chloride 0.9% 50 ml @ 100 mls/hr IVPB Q24H [facility] Rx#:[id number] Output: Urine 1825 700 200 Other: Voiding Method Urinal Urinal Urinal - Exam No acute distress, oriented 3. Currently on 3 L of oxygen. HEENT examination is grossly unremarkable. Neck supple. Full range of motion. No adenopathy thyromegaly or neck vein distention. Cardiovascular examination reveals regular rhythm rate. S1-S2 normal. No S3 or S4. No discernible murmur noted. Heart rate 89 bpm. Lungs reveal bibasilar crackles. Scattered rhonchi are noted. Saturations are 93% on 3 L. No wheezes appreciated. Abdomen soft, with bowel sounds, but distended. No tenderness. Extremities reveal some mild edema. No cyanosis or clubbing. Plantar ulcer is wrapped. Skin has multiple areas of ecchymoses. Neurologic examination is brief but nonfocal. - Labs CBC & Chem 7: 02/22/22 06:41 02/24/22 03:29 Labs: Abnormal Lab Results - Last 24 Hours (Table) 02/24/22 Range/Units 03:29 Sodium 136 L (137-145) mmol/L Chloride 97 L (98-107) mmol/L BUN 24 H (9-20) mg/dL Glucose 108 H (74-99) mg/dL Microbiology - Last 24 Hours (Table) 02/22/22 12:50 Gram Stain - Preliminary Foot - Left Wound Culture - Preliminary 02/21/22 19:53 Blood Culture - Preliminary Blood No Growth after 48 hours 02/21/22 19:53 Blood Culture - Preliminary Blood No Growth after 48 hours Assessment and Plan Assessment: Acute hypoxemic respiratory failure, requiring BiPAP therapy, secondary to fluid overload/CHF. Status post kidney/pancreas transplant, 1997, [facility]. Nonhealing ulcer, lower extremities. History of diabetes mellitus, and diabetic neuropathy History of skin cancer. Gen. medical debility. Anemia of chronic disease Plan: Plan dated 02/22/2022. The patient was admitted to the intensive care unit, as an overflow patient, for 3 S. The patient is currently on daptomycin, as well as prednisone and Prograf, and cefepime. Additional recommendations and suggestions are forthcoming. Prognosis is guarded. The patient is on Lasix. He certainly is doing much better. He is currently not on BiPAP. We will continue to follow make recommendations along the way. Plan dated 02/23/2022. The patient is doing a bit better today. He's been weaned down to 4 L. He's currently on cefepime and daptomycin, for his lower extremity ulcers. He's feeling much less short of breath. He did not use BiPAP last night. Labs, x- rays, and medications are reviewed. We will continue to follow and make recommendations along the way. Prognosis is guarded. Plan dated 02/24/2022. The patient's doing much better. Patient has been weaned down to 3 L. Chest x- rays reviewed. Still does show a pattern of mild CHF. The patient continues on daptomycin and cefepime as per infectious diseases, for his lower extremity/foot ulcers. We will continue to follow make recommendations were appropriate. Labs, x-rays, and medications are reviewed. Prognosis is guarded. The patient can be transferred out of the intensive care unit. Time with Patient: Less than 30
--- NOTE | 2022-02-24 15:05 | P.PN ---
Subjective Progress Note Date: 02/23/22 Patient is a 61-year old male with a past medical history difficult for end-stage renal disease status post renal transplant currently on immunosuppressive did have chronic nonhealing wound to the left foot and episodes of osteomyelitis for the patient was finishing his daptomycin and Flagyl therapy presented to the hospital with increasing shortness of breath lower extremity swelling and fever. On today's evaluation that is 02/23/2022 the patient is afebrile, the patient is currently breathing comfortably on the 2 L nasal cannula, the patient denies having any chest pain no worsening cough or sputum production no abdominal pain no diarrhea Objective - Vital Signs Vital signs: Vital Signs Temp 98.5 F 02/23/22 20:00 Pulse 80 02/23/22 20:00 Resp 17 02/23/22 20:00 BP 124/67 02/23/22 20:00 Pulse Ox 95 02/23/22 20:00 FiO2 30 02/22/22 07:14 Intake & Output 02/23/22 02/23/22 02/24/22 06:59 18:59 06:59 Intake Total 150 Output Total 650 1825 Balance -500 -1825 Weight 65.3 kg Intake: IV 150 Cefepime 2 gm In Sodium 100 Chloride 0.9% 100 ml @ 25 mls/hr IVPB Q8H [facility] Rx#: [id number] DAPTOmycin 500 mg In 50 Sodium Chloride 0.9% 50 ml @ 100 mls/hr IVPB Q24H [facility] Rx#:[id number] Output: Urine 650 1825 Other: Voiding Method Urinal Urinal Urinal # Bowel Movements 1 - Exam GENERAL DESCRIPTION: Middle-aged male lying in bed, no distress. No tachypnea or accessory muscle of respiration use. LUNGS: Unlabored breathing. Decreased breath sound at the base HEART: S1, S2, regular rate and rhythm. No loud murmur ABDOMEN: Soft, no tenderness , guarding or rigidity, no organomegaly EXTREMITIES: Left foot wound is currently dressed no drainage on the dressing. - Labs CBC & Chem 7: 02/22/22 06:41 02/24/22 03:29 Labs: Abnormal Lab Results - Last 24 Hours (Table) 02/23/22 02/23/22 Range/Units 06:14 06:14 Sodium 136 L (137-145) mmol/L BUN 25 H (9-20) mg/dL C-Reactive Protein 7.1 H (<1.0) mg/dL Procalcitonin 0.66 H (0.02-0.09) ng/mL Microbiology - Last 24 Hours (Table) 02/21/22 19:53 Blood Culture - Preliminary Blood No Growth after 48 hours 02/21/22 19:53 Blood Culture - Preliminary Blood No Growth after 48 hours 02/22/22 12:50 Gram Stain - Preliminary Foot - Left Wound Culture - Preliminary Assessment and Plan (1) Pneumonia Current Visit: Yes Status: Acute Code(s): J18.9 - PNEUMONIA, UNSPECIFIED ORGANISM SNOMED Code(s): 475276786 (2) Diabetic foot ulcers Current Visit: No Status: Acute Code(s): E11.621 - TYPE 2 DIABETES MELLITUS WITH FOOT ULCER SNOMED Code(s): 299428039 Plan: 1patient presented to hospital with increasing shortness of breath and cough which is mostly dry in nature also complaining of lower extremity swelling concerning for possible fluid overload however the x-ray has been suspicious for right lower lobe pneumonia And the patient did have mild elevated procalcitonin though clinical picture more of a CHF 2patient with a chronic nonhealing wound to the left foot plantar aspect with a bone still palpable , X-ray did not show any new findings and cultures are curre ntly pending 3patient to continue with daptomycin and cefepime while waiting for the culture to finalize. 4local wound care to left foot wound with dry Aquacel silver dressing change daily Time with Patient: Less than 30
--- NOTE | 2022-02-24 15:12 | P.PN ---
Subjective Progress Note Date: 02/24/22 Principal diagnosis: Left foot diabetic ulcer and ?pneumonia Patient is a 61-year old male with a past medical history difficult for end-stage renal disease status post renal transplant currently on immunosuppressive did have chronic nonhealing wound to the left foot and episodes of osteomyelitis for the patient was finishing his daptomycin and Flagyl therapy presented to the hospital with increasing shortness of breath lower extremity swelling and fever. On today's evaluation that is 02/24/2022 the patient remains to be afebrile, the patient is breathing comfortably on a 2 L nasal cannula currently denies having any chest pain or shortness of breath occasional cough no nausea noted no abdominal pain or pain to the left foot area Objective - Vital Signs Vital signs: Vital Signs Temp 98.0 F 02/24/22 14:00 Pulse 83 02/24/22 14:00 Resp 14 02/24/22 14:00 BP 116/58 02/24/22 14:00 Pulse Ox 92 L 02/24/22 14:00 FiO2 30 02/22/22 07:14 Intake & Output 02/23/22 02/24/22 02/24/22 18:59 06:59 18:59 Intake Total 250 Output Total 1825 700 200 Balance -1825 -450 -200 Weight 65 kg Intake: IV 250 Cefepime 2 gm In Sodium 200 Chloride 0.9% 100 ml @ 25 mls/hr IVPB Q8H [facility] Rx#: [id number] DAPTOmycin 500 mg In 50 Sodium Chloride 0.9% 50 ml @ 100 mls/hr IVPB Q24H [facility] Rx#:[id number] Output: Urine 1825 700 200 Other: Voiding Method Urinal Urinal Urinal - Exam GENERAL DESCRIPTION: Middle-aged male lying in bed, no distress. No tachypnea or accessory muscle of respiration use. LUNGS: Unlabored breathing. Decreased breath sound at the base HEART: S1, S2, regular rate and rhythm. No loud murmur ABDOMEN: Soft, no tenderness , guarding or rigidity, no organomegaly EXTREMITIES: Left foot wound is currently dressed no drainage on the dressing. - Labs CBC & Chem 7: 02/22/22 06:41 02/24/22 03:29 Labs: Abnormal Lab Results - Last 24 Hours (Table) 02/24/22 Range/Units 03:29 Sodium 136 L (137-145) mmol/L Chloride 97 L (98-107) mmol/L BUN 24 H (9-20) mg/dL Glucose 108 H (74-99) mg/dL Microbiology - Last 24 Hours (Table) 02/22/22 12:50 Anaerobic Culture - Preliminary Foot - Left 02/22/22 12:50 Gram Stain - Preliminary Foot - Left Wound Culture - Preliminary 02/21/22 19:53 Blood Culture - Preliminary Blood No Growth after 48 hours 02/21/22 19:53 Blood Culture - Preliminary Blood No Growth after 48 hours Assessment and Plan (1) Pneumonia Current Visit: Yes Status: Acute Code(s): J18.9 - PNEUMONIA, UNSPECIFIED ORGANISM SNOMED Code(s): 398786333 (2) Diabetic foot ulcers Current Visit: No Status: Acute Code(s): E11.621 - TYPE 2 DIABETES MELLITUS WITH FOOT ULCER SNOMED Code(s): 123151409 Plan: 1patient presented to hospital with increasing shortness of breath and cough which is mostly dry in nature also complaining of lower extremity swelling concerning for possible fluid overload however the x-ray has been suspicious for right lower lobe pneumonia And the patient did have mild elevated procalcitonin though clinical picture more of a CHF 2patient with a chronic nonhealing wound to the left foot plantar aspect with a bone still palpable , X-ray did not show any new findings and cultures are currently pending 3 local wound care to left foot wound with dry Aquacel silver dressing change daily. 4patient seem to have shown clinical improvement however cultures are still pending continue with cefepime and Dapto while waiting for the culture to finalize and monitor clinical course closely Time with Patient: Less than 30
[2022-02-24] MEDS: GABAPENTIN 300 MG CAP PO SCH (21:04)
[2022-02-24] MEDS: DAPTOmycin 500 MG in SODIUM CHLORIDE 0.9% 50 ML IVPB SCH (21:05)
[2022-02-25 04:01] LABS: Anisocytosis Slight; HGB 11.2 gm/dL (13.0-17.5); MCH 29.7 pg (25.0-35.0); MCHC 32.9 g/dL (31.0-37.0); MCV 90.4 fL (80.0-100.0); Mean Platelet Volume 7.4; Platelet Count 381 k/uL (150-450); RBC 3.76 m/uL (4.30-5.90); RDW 17.3 % (11.5-15.5); WBC 10.5 k/uL (3.8-10.6)
[2022-02-25 04:16] LABS: C Reactive Protein 5.5 mg/dL (<1.0); Calcium 8.8 mg/dL (8.4-10.2); Potassium 3.9 mmol/L (3.5-5.1)
[2022-02-25] MEDS: CEFEPIME 2 GM in SODIUM CHLORIDE 0.9% 100 ML IVPB SCH ×3 (04:33→21:19)
[2022-02-25] MEDS: carvediloL 6.25 MG TAB PO SCH ×2 (07:01→16:55)
[2022-02-25 08:38] LABS: Erythrocyte Sedimentation Rate 99 mm/hr (0-15)
--- NOTE | 2022-02-25 08:57 | P.PN ---
Subjective Progress Note Date: 02/25/22 Principal diagnosis: Heart failure with preserved ejection fraction This is a 61-year-old gentleman with a past medical history significant for hypertension as well as dyslipidemia as well as history of kidney and pancreatic transplant in 1997 as well as history of critical limb ischemia of the left foot presented to the hospital complaining of shortness of breath. The patient was seen this morning in the intensive care unit where he was on BiPAP. He is somewhat poor historian. Apparently the patient presented to the emergency department complaining of shortness of breath for the last 2 weeks. The shortness of breath was not associated with any chest pain or chest discomfort nor lower extremities edema. No fever or chills before he presented to the hospital but the patient was a spiking fever in the intensive care unit when he was seen this morning with a temperature of 101. No symptoms of any chest pain or chest discomfort. No cough or sputum production. Further investigation was performed in the emergency department including a chest x-ray which showed finding consistent with possible pneumonia with a component of heart failure with bilateral pleural effusion. NT proBNP came in to be elevated at almost 8000. Also an EKG was performed and showed what it seems to be atrial flutter/atrial fibrillation with overall controlled heart rate. According to the patient no history of coronary artery disease and no heart failure and no cardiac arrhythmia and never seen any biology research assistant before. The patient had multiple hospital admission in the past but never seen by cardiology service. He underwent an echo back in 2021 and that revealed preserved left ventricular systolic function was no significant valvular abnormalities. He is in process of having another echo during this admission. When he was seen and evaluated this morning he does have mild edema and he also does have diminished breathing sounds bilaterally/wheezing. Currently he is on Lasix. He is also on BiPAP February [id number] The patient was seen this morning. He is doing better. The shortness of breath is better. The edema is better as well. He has been diuresing on Lasix IV. He underwent an echo which revealed preserved left ventricle systolic function was no significant valvular abnormalities. I will suggest continue IV Lasix for additional 24 hours would continue monitoring the kidney function and electrolytes and follow-up with the patient. February 242021 The patient was seen this morning. He is overall doing better. He is converted to normal sinus mechanism. He was started on oral anticoagulation yesterday. He continues to be on IV Lasix. He seems to be somewhat euvolemic on examination. Chest x-ray is in process to be done. Currently is on IV Lasix. We will consider switching to by mouth Lasix in the next 24 hour February 252021 The patient was seen and evaluated this morning. He is doing overall better. He remains in sinus mechanism. He is currently on Lasix by mouth. I'm going to increase the dose of Eliquis 25 mg by mouth twice a day. I'll follow-up with the patient. Objective - Vital Signs Vital signs: Vital Signs Temp 98 F 02/25/22 02:00 Pulse 86 02/25/22 02:00 Resp 16 02/25/22 02:00 BP 103/82 02/25/22 02:00 Pulse Ox 94 L 02/25/22 02:00 FiO2 30 02/22/22 07:14 Intake & Output 02/24/22 02/25/22 02/25/22 18:59 06:59 18:59 Output Total 1350 650 Balance -1350 -650 Output: Urine 1350 650 Other: Voiding Method Urinal Urinal # Voids 4 - Constitutional General appearance: Present: no acute distress - Respiratory Respiratory: bilateral: diminished - Cardiovascular Rhythm: regular - Labs CBC & Chem 7: 02/25/22 03:33 02/25/22 03:33 Labs: Abnormal Lab Results - Last 24 Hours (Table) 02/25/22 02/25/22 Range/Units 03:33 03:33 RBC 3.76 L (4.30-5.90) m/uL Hgb 11.2 L (13.0-17.5) gm/dL Hct 34.0 L (39.0-53.0) % RDW 17.3 H (11.5-15.5) % ESR 99 H (0-15) mm/hr Sodium 134 L (137-145) mmol/L Chloride 95 L (98-107) mmol/L BUN 24 H (9-20) mg/dL Glucose 104 H (74-99) mg/dL C-Reactive Protein 5.5 H (<1.0) mg/dL Microbiology - Last 24 Hours (Table) 02/21/22 19:53 Blood Culture - Preliminary Blood No Growth after 72 hours 02/21/22 19:53 Blood Culture - Preliminary Blood No Growth after 72 hours 02/22/22 12:50 Anaerobic Culture - Preliminary Foot - Left 02/22/22 12:50 Gram Stain - Preliminary Foot - Left Wound Culture - Preliminary Assessment and Plan Assessment: Assessment Shortness of breath likely related to a combination of pneumonia and heart failure Heart failure exacerbation was evidence off left more than right failure related to heart failure with preserved ejection fraction Bilateral pleural effusion Multiple comorbid conditions Plan Continue the current medical regimen Increase the dose of oral anticoagulation Follow-up with the patient
[2022-02-25] MEDS ORDERED: POTASSIUM CHLORIDE ER 20 MEQ TAB.ER PO SCH (09:00)
[2022-02-25] MEDS: APIXABAN 5 MG TAB PO SCH ×2 (09:26→21:10)
[2022-02-25] MEDS: CHOLECALCIFEROL 25 MCG (1000 IU) TABLET PO SCH (09:26)
[2022-02-25] MEDS: DORZOLAMIDE HCL 2% DROPS 10 ML BTL LEFT EYE SCH ×2 (09:26→21:11)
[2022-02-25] MEDS: ASPIRIN 81 MG PO SCH (09:26)
[2022-02-25] MEDS: BRIMONIDINE TARTRATE 0.2% DROPS 5 ML BTL BOTH EYES SCH ×2 (09:26→21:20)
[2022-02-25] MEDS: hydrALAZINE HCL 25 MG TAB PO SCH ×2 (09:27→16:55)
[2022-02-25] MEDS: MAGNESIUM OXIDE 400 MG TAB PO SCH (09:27)
[2022-02-25] MEDS: FUROSEMIDE 40 MG TAB PO SCH ×2 (09:27→16:55)
[2022-02-25] MEDS: predniSONE 5 MG TAB PO SCH (09:28)
[2022-02-25] MEDS: TIMOLOL 0.5% OPHTH DROPS 5 ML BTL BOTH EYES SCH ×2 (09:28→21:20)
[2022-02-25] MEDS: TACROLIMUS 1 MG CAP PO SCH (09:28)
--- NOTE | 2022-02-25 09:35 | P.PN ---
Subjective Patient is seen in follow-up for renal transplant management acute allograft dysfunction. Renal function stable. Good urine output. Edema improved. Currently on room air. Blood pressure stable. No chest pain or shortness of breath. Oral intake is good. On IV Lasix. Vital signs are stable. General: Awake. No acute distress. HEENT: Head exam is unremarkable. On nasal cannula. LUNGS: Breath sounds decreased. HEART: Rate and Rhythm are regular. ABDOMEN: Soft, no distention. EXTREMITITES: Trace edema. Objective - Vital Signs Vital signs: Vital Signs Temp 98.5 F 02/25/22 08:00 Pulse 89 02/25/22 08:00 Resp 14 02/25/22 08:00 BP 118/66 02/25/22 08:00 Pulse Ox 88 L 02/25/22 08:00 FiO2 30 02/22/22 07:14 Intake & Output 02/24/22 02/25/22 02/25/22 18:59 06:59 18:59 Output Total 1350 650 Balance -1350 -650 Output: Urine 1350 650 Other: Voiding Method Urinal Urinal # Voids 4 - Labs CBC & Chem 7: 02/25/22 03:33 02/25/22 03:33 Labs: Abnormal Lab Results - Last 24 Hours (Table) 02/25/22 02/25/22 Range/Units 03:33 03:33 RBC 3.76 L (4.30-5.90) m/uL Hgb 11.2 L (13.0-17.5) gm/dL Hct 34.0 L (39.0-53.0) % RDW 17.3 H (11.5-15.5) % ESR 99 H (0-15) mm/hr Sodium 134 L (137-145) mmol/L Chloride 95 L (98-107) mmol/L BUN 24 H (9-20) mg/dL Glucose 104 H (74-99) mg/dL C-Reactive Protein 5.5 H (<1.0) mg/dL Microbiology - Last 24 Hours (Table) 02/21/22 19:53 Blood Culture - Preliminary Blood No Growth after 72 hours 02/21/22 19:53 Blood Culture - Preliminary Blood No Growth after 72 hours 02/22/22 12:50 Anaerobic Culture - Preliminary Foot - Left 02/22/22 12:50 Gram Stain - Preliminary Foot - Left Wound Culture - Preliminary Assessment and Plan Plan: Assessment: 1. Acute allograft dysfunction mostly prerenal secondary to cardiorenal syndrome. Creatinine 1.44 on admission is fairly stable at 1.13 today. Baseline creatinine near 1. 2. Status post simultaneous kidney pancreas transplant in [address] [facility]. 3. Acute hypoxic respiratory failure secondary to fluid overload. Better. 4. Foot infection/osteomyelitis on antibiotics. 5. Hypertension with chronic kidney disease. Stable. Plan: Change Lasix to 40 mg orally twice daily. Antibiotics per ID. Prograf level 9.7 dated 02/22/2022. Dose of Prograf decreased to 1 mg once daily. Will hold CellCept if any signs of worsening infection. EF preserved. Continue to monitor renal function and urine output. Replace electrolytes per protocol.
--- NOTE | 2022-02-25 11:46 | P.PN ---
Subjective Progress Note Date: 02/25/22 Principal diagnosis: Shortness of breath. Pulmonary consult dated 02/22/2022. 61-year-old male who presented to the emergency department, with shortness of breath. The patient hadn't been feeling well for about 2 days prior to admission. In addition, he had some weight gain, increasing abdominal girth, and bilateral lower extremity swelling. The patient was recently being treated with Flagyl, as an outpatient, for a left foot ulcer. He was in the hospital last month for bacteremia and respiratory failure. He denied any chest pain or chest discomfort. No abdominal pain, nausea, vomiting, or diarrhea. The patient has a significant history of kidney and pancreas transplant, 1997, and uterus he was constant. In addition, he has a history of cardiac arrhythmia, CHF, and COPD. I used to see the patient on a regular basis in the office, but if not seen him recently. White count 10.5, hemoglobin 10.7, hematocrit 33.1, and platelet count 369,000. Sodium 134, potassium 5, chlorides 103, CO2 22, BUN 33, creatinine 1.19. The N-terminal proBNP was 6870. Troponin was normal. Urine was negative. Testing for epps virus was negative. Chest x-ray showed findings consistent with CHF. Progress note dated 02/23/2022. 61-year-old male seen in room 263. He was initially seen yesterday in consultation. The patient had increasing shortness of breath, weight gain, extremity edema, and increasing abdominal girth, all consistent with fluid overload/CHF. The patient's feeling much better now. He is currently resting comfortably in the intensive care unit. He's on 4 L of oxygen. He is getting saline at 10 mL an hour. Antibiotics are daptomycin and cefepime, as per infectious diseases. We can DC the BiPAP from the room. Sodium 136, potassium 4.4, chloride 101, CO2 24, anion gap 11, BUN 25, and creatinine 1. C-reactive protein is 7.1, N-terminal proBNP is 6410. Pro-calcitonin level is 0.66. Progress note dated 02/24/2022. 61-year-old male, seen in consultation 2 days ago. He seen again today in room 263. He came in with a symptom complex consistent with CHF. The patient had weight gain, lower extremity edema, and increasing abdominal girth, along with shortness of breath. He's feeling much better. He is on between 2-3 L of oxygen. Is getting saline at KVO. The patient is stable to be transferred out to the general medical floor, without telemetry in my opinion. Labs today include a sodium 136, potassium 3.9, chlorides 97, CO2 28, normal anion gap, BUN 24, and creatinine 1.05. N-terminal proBNP from yesterday was still elevated at 6410. Chest x-ray continues to show diffuse bilateral ribs, consistent with fluid overload. Progress note dated 02/25/2022. 61-year-old male seen again in room 263. He is currently on 2-3 L of oxygen by nasal cannula. The patient is not receiving any IV fluids. He had an uneventful night. He initially was admitted with shortness of breath, secondary to fluid overload. He is doing much better now. He has a history of both kidney and pancreas transplant at [facility]. White count 10.5, hemoglobin 11.2, hematocrit 34, with a normal platelet count. Or, potassium 3. 9, chlorides 95, CO2 27, BUN 24, and creatinine 1.13. All cultures are thus far negative. No chest x-ray today. Objective - Vital Signs Vital signs: Vital Signs Temp 98.5 F 02/25/22 08:00 Pulse 89 02/25/22 08:00 Resp 14 02/25/22 08:00 BP 118/66 02/25/22 08:00 Pulse Ox 95 02/25/22 10:27 FiO2 30 02/22/22 07:14 Intake & Output 02/24/22 02/25/22 02/25/22 18:59 06:59 18:59 Output Total 1350 650 Balance -1350 -650 Output: Urine 1350 650 Other: Voiding Method Urinal Urinal Urinal # Voids 4 - Exam No acute distress, oriented 3. Currently on 3 L of oxygen. HEENT examination is grossly unremarkable. Neck supple. Full range of motion. No adenopathy thyromegaly or neck vein distention. Cardiovascular examination reveals regular rhythm rate. S1-S2 normal. No S3 or S4. No discernible murmur noted. Heart rate 1 bpm. Lungs reveal bibasilar crackles. Scattered rhonchi are noted. Saturations are 95% on 3 L. No wheezes appreciated. Abdomen soft, with bowel sounds, but distended. No tenderness. Extremities reveal some mild edema. No cyanosis or clubbing. Plantar ulcer is wrapped. Skin has multiple areas of ecchymoses. Neurologic examination is brief but nonfocal. - Labs CBC & Chem 7: 02/25/22 03:33 02/25/22 03:33 Labs: Abnormal Lab Results - Last 24 Hours (Table) 02/25/22 02/25/22 Range/Units 03:33 03:33 RBC 3.76 L (4.30-5.90) m/uL Hgb 11.2 L (13.0-17.5) gm/dL Hct 34.0 L (39.0-53.0) % RDW 17.3 H (11.5-15.5) % ESR 99 H (0-15) mm/hr Sodium 134 L (137-145) mmol/L Chloride 95 L (98-107) mmol/L BUN 24 H (9-20) mg/dL Glucose 104 H (74-99) mg/dL C-Reactive Protein 5.5 H (<1.0) mg/dL Microbiology - Last 24 Hours (Table) 02/21/22 19:53 Blood Culture - Preliminary Blood No Growth after 72 hours 02/21/22 19:53 Blood Culture - Preliminary Blood No Growth after 72 hours 02/22/22 12:50 Anaerobic Culture - Preliminary Foot - Left 02/22/22 12:50 Gram Stain - Preliminary Foot - Left Wound Culture - Preliminary Assessment and Plan Assessment: Acute hypoxemic respiratory failure, requiring BiPAP therapy, secondary to fluid overload/CHF. Status post kidney/pancreas transplant, 1997, [facility]. Nonhealing ulcer, lower extremities. History of diabetes mellitus, and diabetic neuropathy History of skin cancer. Gen. medical debility. Anemia of chronic disease Plan: Plan dated 02/22/2022. The patient was admitted to the intensive care unit, as an overflow patient, for 3 S. The patient is currently on daptomycin, as well as prednisone and Prograf, and cefepime. Additional recommendations and suggestions are forthcoming. Prognosis is guarded. The patient is on Lasix. He certainly is doing much better. He is currently not on BiPAP. We will continue to follow make recommendations along the way. Plan dated 02/23/2022. The patient is doing a bit better today. He's been weaned down to 4 L. He's currently on cefepime and daptomycin, for his lower extremity ulcers. He's feeling much less short of breath. He did not use BiPAP last night. Labs, x- rays, and medications are reviewed. We will continue to follow and make recommendations along the way. Prognosis is guarded. Plan dated 02/24/2022. The patient's doing much better. Patient has been weaned down to 3 L. Chest x- rays reviewed. Still does show a pattern of mild CHF. The patient continues on daptomycin and cefepime as per infectious diseases, for his lower extremity/foot ulcers. We will continue to follow make recommendations were appropriate. Labs, x-rays, and medications are reviewed. Prognosis is guarded. The patient can be transferred out of the intensive care unit. Plan dated 02/25/2022. The patient is awaiting transfer out of the intensive care unit. The patient is doing much better. His respiratory status is stable. Labs, x-rays, and medications are reviewed. He remains on antibiotics as per infectious diseases, for his lower extremity wounds and ulcers. All culture data thus far is negative. We will continue to follow make recommendations along the way. Prognosis is guarded. Time with Patient: Less than 30
--- NOTE | 2022-02-25 11:51 | P.PN ---
Subjective Progress Note Date: 02/25/22 Principal diagnosis: SOB Hospital Course: 61-year-old male with history of ESRD status post renal and pancreatic transplant in 1997, peripheral vascular disease, left foot osteomyelitis presented with shortness of breath. Patient in acute hypoxic respiratory failure likely in the setting of acute CHF exacerbation and possible pneumonia. He was initially on BiPAP, transfer to ICU, now on RA. He is also being treated for lower extremity wounds, possible osteomalacia is. Currently being treated with IV antibiotics, followed by infectious disease, cardiology, pulmonology. Likely transfer out of ICU. Awaiting antibiotic recommendations from ID for possible discharge home with home care. Subjective: Patient seen and examined. No acute events overnight. He denies any worsening shortness of breath. He denies any chest pain, abdominal pain, urinary or bowel problems. Pertinent positives and negatives as discussed above, a complete review of systems was performed and all other systems are negative. Vitals Signs Reviewed. General: no distress, appears at stated age, normal weight Head: atraumatic, normocephalic, symmetric Eyes: EOMI, no lid lag, anicteric sclera, pupils equal round reactive to light ENT: Nose and ears atraumatic Neck: supple Mouth: no lip lesion, mucus membranes moist Cardiovascular: S1S2 reg, no murmur, trace peripheral edema Lungs: Minimal Bibasilar scattered rales and rhonchi, no wheezing, no accessory muscle use, on room Abdominal: soft, nontender to palpation, no guarding Ext: muscle strength 4 out of 5 in all 4 extremities grossly, no gross muscle atrophy, no contractures, left heel covered in gauze Neuro: CN II-XI grossly intact, no gross focal neuro deficits Psych: Alert, oriented, appropriate affect Assessment and Plan: Acute hypoxic respiratory failure Acute diastolic CHF exacerbation Possible community-acquired pneumonia SIRS, likely sepsis with primary source being left foot and pneumonia -Oxygen as needed -On IV cefepime and daptomycin -Was previously on IV Lasix, now transitioned to oral -Repeat echo showed LVEF 50-55% -Cardiology, pulmonology, ID following Left foot osteomyelitis -Cultures pending, negative so far -Continue daptomycin, cefepime -ID following, pending final antibiotic recommendations Status post kidney/pancreas transplant, 1997 Acute kidney injury, likely secondary to cardiorenal syndrome - now stable -Nephrology following -Creatinine improved with diuretics -Continue prednisone and Prograf, CellCept -decreased prograf to 1 mg daily New onset Atrial flutter/fibrillation -On eliquis, increased dose per cardiology -On beta owen Hypertension History of diabetes, diabetic neuropathy -home meds DVT ppx: eliquis Code status: Full code Anticipated discharge place: Home with home care Anticipated discharge time: Likely tomorrow Objective - Vital Signs Vital signs: Vital Signs Temp 98.5 F 02/25/22 08:00 Pulse 89 02/25/22 08:00 Resp 14 02/25/22 08:00 BP 118/66 02/25/22 08:00 Pulse Ox 95 02/25/22 10:27 FiO2 30 02/22/22 07:14 Intake & Output 02/24/22 02/25/22 02/25/22 18:59 06:59 18:59 Output Total 1350 650 Balance -1350 -650 Output: Urine 1350 650 Other: Voiding Method Urinal Urinal Urinal # Voids 4 - Labs CBC & Chem 7: 02/25/22 03:33 02/25/22 03:33 Labs: Abnormal Lab Results - Last 24 Hours (Table) 02/25/22 02/25/22 Range/Units 03:33 03:33 RBC 3.76 L (4.30-5.90) m/uL Hgb 11.2 L (13.0-17.5) gm/dL Hct 34.0 L (39.0-53.0) % RDW 17.3 H (11.5-15.5) % ESR 99 H (0-15) mm/hr Sodium 134 L (137-145) mmol/L Chloride 95 L (98-107) mmol/L BUN 24 H (9-20) mg/dL Glucose 104 H (74-99) mg/dL C-Reactive Protein 5.5 H (<1.0) mg/dL Microbiology - Last 24 Hours (Table) 02/21/22 19:53 Blood Culture - Preliminary Blood No Growth after 72 hours 02/21/22 19:53 Blood Culture - Preliminary Blood No Growth after 72 hours 02/22/22 12:50 Anaerobic Culture - Preliminary Foot - Left 02/22/22 12:50 Gram Stain - Preliminary Foot - Left Wound Culture - Preliminary
[2022-02-25 17:01] LABS: Glucose,Whole Blood 143 mg/dL (70-110)
--- NOTE | 2022-02-25 17:23 | XR ---
EXAMINATION TYPE: XR chest 1V portable DATE OF EXAM: 02/25/2022 COMPARISON: 02/24/2022 HISTORY: Hypoxemia TECHNIQUE: Single view FINDINGS: Heart is borderline enlarged. There is pulmonary interstitial and airspace edema. There is left central venous catheter with tip in the superior vena cava. There is blunting right costophrenic angle. IMPRESSION: Congestive heart failure with pulmonary edema and right pleural effusion. There is slight improvement compared to last exam.
[2022-02-25] MEDS: LORazepam 1 MG TAB PO PRN (18:34)
[2022-02-25] MEDS: GABAPENTIN 300 MG CAP PO SCH (21:10)
[2022-02-25] MEDS: DAPTOmycin 500 MG in SODIUM CHLORIDE 0.9% 50 ML IVPB SCH (21:20)
[2022-02-26] MEDS: hydrALAZINE HCL 25 MG TAB PO SCH ×4 (00:02→21:08)
[2022-02-26] MEDS: CEFEPIME 2 GM in SODIUM CHLORIDE 0.9% 100 ML IVPB SCH ×3 (04:09→21:08)
[2022-02-26 04:21] LABS: Anisocytosis Slight; HCT 31.1 % (39.0-53.0); HGB 10.3 gm/dL (13.0-17.5); MCH 29.9 pg (25.0-35.0); MCHC 32.9 g/dL (31.0-37.0); MCV 90.9 fL (80.0-100.0); Mean Platelet Volume 7.5; Platelet Count 342 k/uL (150-450); RBC 3.42 m/uL (4.30-5.90); WBC 7.6 k/uL (3.8-10.6)
[2022-02-26 04:44] LABS: Calcium 8.6 mg/dL (8.4-10.2); Potassium 3.9 mmol/L (3.5-5.1)
[2022-02-26] MEDS: carvediloL 6.25 MG TAB PO SCH ×2 (06:48→16:34)
--- NOTE | 2022-02-26 07:38 | P.PN ---
Subjective Progress Note Date: 02/26/22 Principal diagnosis: Heart failure with preserved ejection fraction This is a 61-year-old gentleman with a past medical history significant for hypertension as well as dyslipidemia as well as history of kidney and pancreatic transplant in 1997 as well as history of critical limb ischemia of the left foot presented to the hospital complaining of shortness of breath. The patient was seen this morning in the intensive care unit where he was on BiPAP. He is somewhat poor historian. Apparently the patient presented to the emergency department complaining of shortness of breath for the last 2 weeks. The shortness of breath was not associated with any chest pain or chest discomfort nor lower extremities edema. No fever or chills before he presented to the hospital but the patient was a spiking fever in the intensive care unit when he was seen this morning with a temperature of 101. No symptoms of any chest pain or chest discomfort. No cough or sputum production. Further investigation was performed in the emergency department including a chest x-ray which showed finding consistent with possible pneumonia with a component of heart failure with bilateral pleural effusion. NT proBNP came in to be elevated at almost 8000. Also an EKG was performed and showed what it seems to be atrial flutter/atrial fibrillation with overall controlled heart rate. 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 The patient had multiple hospital admission in the past but never seen by cardiology service. He underwent an echo back in 2021 and that revealed preserved left ventricular systolic function was no significant valvular abnormalities. He is in process of having another echo during this admission. When he was seen and evaluated this morning he does have mild edema and he also does have diminished breathing sounds bilaterally/wheezing. Currently he is on Lasix. He is also on BiPAP February 232021 The patient was seen this morning. He is doing better. The shortness of breath is better. The edema is better as well. He has been diuresing on Lasix IV. He underwent an echo which revealed preserved left ventricle systolic function was no significant valvular abnormalities. I will suggest continue IV Lasix for additional 24 hours would continue monitoring the kidney function and electrolytes and follow-up with the patient. February 242021 The patient was seen this morning. He is overall doing better. He is converted to normal sinus mechanism. He was started on oral anticoagulation yesterday. He continues to be on IV Lasix. He seems to be somewhat euvolemic on examination. Chest x-ray is in process to be done. Currently is on IV Lasix. We will consider switching to by mouth Lasix in the next 24 hour February 252021 The patient was seen and evaluated this morning. He is doing overall better. He remains in sinus mechanism. He is currently on Lasix by mouth. I'm going to increase the dose of Eliquis 25 mg by mouth twice a day. I'll follow-up with the patient. February 262021 The patient was seen and evaluated this morning. He remains hemodynamically stable. He remains asymptomatic from the cardiac standpoint overview. He remains in normal sinus mechanism and currently is on oral anticoagulation. He is on aspirin for CAD/critical limb ischemia. He is waiting on insurance issues to be discharged into a rehab facility where he can go on antibiotic. Objective - Vital Signs Vital signs: Vital Signs Temp 97.8 F 02/26/22 02:00 Pulse 81 02/26/22 02:00 Resp 20 02/26/22 02:00 BP 137/62 02/26/22 02:00 Pulse Ox 94 L 02/26/22 02:00 FiO2 30 02/22/22 07:14 Intake & Output 02/25/22 02/26/22 02/26/22 18:59 06:59 18:59 Intake Total 100 Output Total 450 600 Balance -450 -500 Intake: Intake, IV Titration 100 Amount Cefepime 2 gm In Sodium 100 Chloride 0.9% 100 ml @ 25 mls/hr IVPB Q8H [facility] Rx#: [id number] Output: Urine 450 600 Other: Voiding Method Urinal Urinal # Voids 2 1 - Constitutional General appearance: Present: no acute distress - Respiratory Respiratory: bilateral: CTA - Cardiovascular Rhythm: regular - Labs CBC & Chem 7: 02/26/22 03:53 02/26/22 03:53 Labs: Abnormal Lab Results - Last 24 Hours (Table) 02/25/22 02/25/22 02/26/22 Range/Units 03:33 17:00 03:53 RBC (4.30-5.90) m/uL Hgb (13.0-17.5) gm/dL Hct (39.0-53.0) % RDW (11.5-15.5) % ESR 99 H (0-15) mm/hr Sodium 133 L (137-145) mmol/L Chloride 95 L (98-107) mmol/L BUN 27 H (9-20) mg/dL POC Glucose (mg/dL) 143 H (70-110) mg/dL 02/26/22 Range/Units 03:53 RBC 3.42 L (4.30-5.90) m/uL Hgb 10.3 L (13.0-17.5) gm/dL Hct 31.1 L (39.0-53.0) % RDW 17.0 H (11.5-15.5) % ESR (0-15) mm/hr Sodium (137-145) mmol/L Chloride (98-107) mmol/L BUN (9-20) mg/dL POC Glucose (mg/dL) (70-110) mg/dL Microbiology - Last 24 Hours (Table) 02/21/22 19:53 Blood Culture - Preliminary Blood No Growth after 96 hours 02/21/22 19:53 Blood Culture - Preliminary Blood No Growth after 96 hours 02/22/22 12:50 Gram Stain - Final Foot - Left Wound Culture - Final Assessment and Plan Assessment: Assessment Shortness of breath likely related to a combination of pneumonia and heart failure Heart failure exacerbation was evidence off left more than right failure related to heart failure with preserved ejection fraction Bilateral pleural effusion Multiple comorbid conditions Plan Continue the current medical regimen Continue the current dose of oral anticoagulation Follow-up with the patient
[2022-02-26] MEDS: BRIMONIDINE TARTRATE 0.2% DROPS 5 ML BTL BOTH EYES SCH ×2 (08:55→21:09)
[2022-02-26] MEDS: CHOLECALCIFEROL 25 MCG (1000 IU) TABLET PO SCH (08:55)
[2022-02-26] MEDS: ASPIRIN 81 MG PO SCH (08:55)
[2022-02-26] MEDS: TIMOLOL 0.5% OPHTH DROPS 5 ML BTL BOTH EYES SCH ×2 (08:55→21:08)
[2022-02-26] MEDS: APIXABAN 5 MG TAB PO SCH ×2 (08:55→21:08)
[2022-02-26] MEDS: FUROSEMIDE 40 MG TAB PO SCH ×2 (08:55→16:34)
[2022-02-26] MEDS: DORZOLAMIDE HCL 2% DROPS 10 ML BTL LEFT EYE SCH ×2 (08:55→21:08)
[2022-02-26] MEDS: TACROLIMUS 1 MG CAP PO SCH (08:56)
[2022-02-26] MEDS: predniSONE 5 MG TAB PO SCH (08:56)
[2022-02-26] MEDS: MAGNESIUM OXIDE 400 MG TAB PO SCH (08:56)
--- NOTE | 2022-02-26 09:42 | P.PN ---
Subjective Progress Note Date: 02/25/22 Principal diagnosis: Left foot diabetic ulcer and ?pneumonia Patient is a 61-year old male with a past medical history difficult for end-stage renal disease status post renal transplant currently on immunosuppressive did have chronic nonhealing wound to the left foot and episodes of osteomyelitis for the patient was finishing his daptomycin and Flagyl therapy presented to the hospital with increasing shortness of breath lower extremity swelling and fever. On today's evaluation that is 02/25/2022 the patient continues to be afebrile, the patient is breathing comfortably on a 2 L nasal cannula the patient denies having any chest pain or shortness of breath occasional cough not bringing up any sputum, no nausea noted no abdominal pain or pain to the left foot area Objective - Vital Signs Vital signs: Vital Signs Temp 98.5 F 02/25/22 08:00 Pulse 89 02/25/22 08:00 Resp 14 02/25/22 08:00 BP 118/66 02/25/22 08:00 Pulse Ox 95 02/25/22 10:27 FiO2 30 02/22/22 07:14 Intake & Output 02/24/22 02/25/22 02/25/22 18:59 06:59 18:59 Output Total 1350 650 Balance -1350 -650 Output: Urine 1350 650 Other: Voiding Method Urinal Urinal Urinal # Voids 4 - Exam GENERAL DESCRIPTION: Middle-aged male lying in bed, no distress. No tachypnea or accessory muscle of respiration use. LUNGS: Unlabored breathing. Decreased breath sound at the base HEART: S1, S2, regular rate and rhythm. No loud murmur ABDOMEN: Soft, no tenderness , guarding or rigidity, no organomegaly EXTREMITIES: Left foot wound is currently dressed no drainage on the dressing. - Labs CBC & Chem 7: 02/26/22 03:53 02/26/22 03:53 Labs: Abnormal Lab Results - Last 24 Hours (Table) 02/25/22 02/25/22 Range/Units 03:33 03:33 RBC 3.76 L (4.30-5.90) m/uL Hgb 11.2 L (13.0-17.5) gm/dL Hct 34.0 L (39.0-53.0) % RDW 17.3 H (11.5-15.5) % ESR 99 H (0-15) mm/hr Sodium 134 L (137-145) mmol/L Chloride 95 L (98-107) mmol/L BUN 24 H (9-20) mg/dL Glucose 104 H (74-99) mg/dL C-Reactive Protein 5.5 H (<1.0) mg/dL Microbiology - Last 24 Hours (Table) 02/21/22 19:53 Blood Culture - Preliminary Blood No Growth after 72 hours 02/21/22 19:53 Blood Culture - Preliminary Blood No Growth after 72 hours 02/22/22 12:50 Anaerobic Culture - Preliminary Foot - Left 02/22/22 12:50 Gram Stain - Preliminary Foot - Left Wound Culture - Preliminary Assessment and Plan (1) Pneumonia Current Visit: Yes Status: Acute Code(s): J18.9 - PNEUMONIA, UNSPECIFIED O RGANISM SNOMED Code(s): 021023014 (2) Diabetic foot ulcers Current Visit: No Status: Acute Code(s): E11.621 - TYPE 2 DIABETES MELLITUS WITH FOOT ULCER SNOMED Code(s): 348619868 Plan: 1patient presented to hospital with increasing shortness of breath and cough which is mostly dry in nature also complaining of lower extremity swelling concerning for possible fluid overload however the x-ray has been suspicious for right lower lobe pneumonia And the patient did have mild elevated procalcitonin though clinical picture more of a CHF 2patient with a chronic nonhealing wound to the left foot plantar aspect with a bone still palpable , X-ray did not show any new findings and cultures are currently pending 3 local wound care to left foot wound with dry Aquacel silver dressing change daily. 4patient seem to have shown clinical improvement, the patient blood as well as left foot wound cultures are currently pending, patient continue with cefepime and Dapto while waiting for the culture to finalize and monitor clinical course closely Time with Patient: Less than 30
--- NOTE | 2022-02-26 10:29 | P.PN ---
Subjective Patient is seen in follow-up for renal transplant management acute allograft dysfunction. Renal function stable. Good urine output. Edema improved. Currently on room air. Blood pressure stable. No chest pain or shortness of breath. Oral intake is good. On IV Lasix. No significant complaints. Objective - Vital Signs Vital signs: Vital Signs Temp 97.9 F 02/26/22 08:00 Pulse 80 02/26/22 08:00 Resp 14 02/26/22 08:00 BP 123/64 02/26/22 08:00 Pulse Ox 95 02/26/22 08:00 FiO2 30 02/22/22 07:14 Intake & Output 02/25/22 02/26/22 02/26/22 18:59 06:59 18:59 Intake Total 100 Output Total 450 600 Balance -450 -500 Intake: Intake, IV Titration 100 Amount Cefepime 2 gm In Sodium 100 Chloride 0.9% 100 ml @ 25 mls/hr IVPB Q8H [facility] Rx#: [id number] Output: Urine 450 600 Other: Voiding Method Urinal Urinal Urinal # Voids 2 1 - Exam Awake, comfortable, not in any acute distress Examination of the heart S1 and S2 Examination lungs bilateral breath sounds are heard Abdomen is soft nontender Examination of lower extremities shows left foot is wrapped [employer] exam grossly intact - Labs CBC & Chem 7: 02/26/22 03:53 02/26/22 03:53 Labs: Abnormal Lab Results - Last 24 Hours (Table) 02/25/22 02/26/22 02/26/22 Range/Units 17:00 03:53 03:53 RBC 3.42 L (4.30-5.90) m/uL Hgb 10.3 L (13.0-17.5) gm/dL Hct 31.1 L (39.0-53.0) % RDW 17.0 H (11.5-15.5) % Sodium 133 L (137-145) mmol/L Chloride 95 L (98-107) mmol/L BUN 27 H (9-20) mg/dL POC Glucose (mg/dL) 143 H (70-110) mg/dL Microbiology - Last 24 Hours (Table) 02/21/22 19:53 Blood Culture - Preliminary Blood No Growth after 96 hours 02/21/22 19:53 Blood Culture - Preliminary Blood No Growth after 96 hours 02/22/22 12:50 Gram Stain - Final Foot - Left Wound Culture - Final Assessment and Plan Assessment: 1. Acute allograft dysfunction mostly prerenal secondary to cardiorenal syndrome. Creatinine 1.44 on admission is fairly stable at 1.13 today. Lei durán creatinine near 1. 2. Status post simultaneous kidney pancreas transplant in 1997 from [facility]. 3. Acute hypoxic respiratory failure secondary to fluid overload. Better. 4. Foot infection/osteomyelitis on antibiotics. 5. Hypertension with chronic kidney disease. Stable. Plan: Continue oral Lasix Repeat Prograf level in the next 2-3 days Repeat labs in a.m. Antibiotics as per ID
--- NOTE | 2022-02-26 11:37 | P.PN ---
Subjective Progress Note Date: 02/26/22 Principal diagnosis: SOB Hospital Course: 61-year-old male with history of ESRD status post renal and pancreatic transplant in 1997, peripheral vascular disease, left foot osteomyelitis presented with shortness of breath. Patient in acute hypoxic respiratory failure likely in the setting of acute CHF exacerbation and possible pneumonia. He was initially on BiPAP, transfer to ICU, now on RA. He is also being treated for lower extremity wounds, possible osteomyelitis. Currently being treated with IV antibiotics, followed by infectious disease, cardiology, pulmonology. Likely transfer out of ICU. Awaiting antibiotic recommendations from ID for possible discharge home with home care. Subjective: Patient seen and examined. No acute events overnight. He denies any worsening shortness of breath. He denies any chest pain, abdominal pain, urinary or bowel problems. Pertinent positives and negatives as discussed above, a complete review of systems was performed and all other systems are negative. Vitals Signs Reviewed. General: no distress, appears at stated age, normal weight Head: atraumatic, normocephalic, symmetric Eyes: EOMI, no lid lag, anicteric sclera, pupils equal round reactive to light ENT: Nose and ears atraumatic Neck: supple Mouth: no lip lesion, mucus membranes moist Cardiovascular: S1S2 reg, no murmur, trace peripheral edema Lungs: Minimal Bibasilar scattered rales and rhonchi, no wheezing, no accessory muscle use, on room Abdominal: soft, nontender to palpation, no guarding Ext: muscle strength 4 out of 5 in all 4 extremities grossly, no gross muscle atrophy, no contractures, left heel covered in gauze Neuro: CN II-XI grossly intact, no gross focal neuro deficits Psych: Alert, oriented, appropriate affect Assessment and Plan: Acute hypoxic respiratory failure Acute diastolic CHF exacerbation Possible community-acquired pneumonia SIRS, likely sepsis with primary source being left foot and pneumonia -Wean oxygen -On IV cefepime and daptomycin -Was previously on IV Lasix, now transitioned to oral -Repeat echo showed LVEF 50-55% -Cardiology, pulmonology, ID following Left foot osteomyelitis -Cultures pending, negative so far -Continue daptomycin, cefepime -ID following, pending final antibiotic recommendations Status post kidney/pancreas transplant, 1997 Acute kidney injury, likely secondary to cardiorenal syndrome - now stable -Nephrology following -Creatinine improved with diuretics -Continue prednisone and Prograf, CellCept -decreased prograf to 1 mg daily New onset Atrial flutter/fibrillation -On eliquis, increased dose per cardiology -On beta owen Hypertension History of diabetes, diabetic neuropathy -home meds DVT ppx: eliquis Code status: Full code Anticipated discharge place: Home with home care Anticipated discharge time: Likely tomorr or Monday Objective - Vital Signs Vital signs: Vital Signs Temp 97.9 F 02/26/22 08:00 Pulse 80 02/26/22 08:00 Resp 14 02/26/22 08:00 BP 123/64 02/26/22 08:00 Pulse Ox 95 02/26/22 08:00 FiO2 30 02/22/22 07:14 Intake & Output 02/25/22 02/26/22 02/26/22 18:59 06:59 18:59 Intake Total 100 Output Total 450 600 Balance -450 -500 Intake: Intake, IV Titration 100 Amount Cefepime 2 gm In Sodium 100 Chloride 0.9% 100 ml @ 25 mls/hr IVPB Q8H [facility] Rx#: [id number] Output: Urine 450 600 Other: Voiding Method Urinal Urinal Urinal # Voids 2 1 - Labs CBC & Chem 7: 02/26/22 03:53 02/26/22 03:53 Labs: Abnormal Lab Results - Last 24 Hours (Table) 02/25/22 02/26/22 02/26/22 Range/Units 17:00 03:53 03:53 RBC 3.42 L (4.30-5.90) m/uL Hgb 10.3 L (13.0-17.5) gm/dL Hct 31.1 L (39.0-53.0) % RDW 17.0 H (11.5-15.5) % Sodium 133 L (137-145) mmol/L Chloride 95 L (98-107) mmol/L BUN 27 H (9-20) mg/dL POC Glucose (mg/dL) 143 H (70-110) mg/dL Microbiology - Last 24 Hours (Table) 02/21/22 19:53 Blood Culture - Preliminary Blood No Growth after 96 hours 02/21/22 19:53 Blood Culture - Preliminary Blood No Growth after 96 hours 02/22/22 12:50 Gram Stain - Final Foot - Left Wound Culture - Final
--- NOTE | 2022-02-26 12:35 | P.PN ---
Subjective Progress Note Date: 02/26/22 Principal diagnosis: Shortness of breath. Pulmonary consult dated 02/22/2022. 61-year-old male who presented to the emergency department, with shortness of breath. The patient hadn't been feeling well for about 2 days prior to admission. In addition, he had some weight gain, increasing abdominal girth, and bilateral lower extremity swelling. The patient was recently being treated with Flagyl, as an outpatient, for a left foot ulcer. He was in the hospital last month for bacteremia and respiratory failure. He denied any chest pain or chest discomfort. No abdominal pain, nausea, vomiting, or diarrhea. The patient has a significant history of kidney and pancreas transplant, 1997, and uterus he was constant. In addition, he has a history of cardiac arrhythmia, CHF, and COPD. I used to see the patient on a regular basis in the office, but if not seen him recently. White count 10.5, hemoglobin 10.7, hematocrit 33.1, and platelet count 369,000. Sodium 134, potassium 5, chlorides 103, CO2 22, BUN 33, creatinine 1.19. The N-terminal proBNP was 6870. Troponin was normal. Urine was negative. Testing for epps virus was negative. Chest x-ray showed findings consistent with CHF. Progress note dated 02/23/2022. 61-year-old male seen in room 263. He was initially seen yesterday in consultation. The patient had increasing shortness of breath, weight gain, extremity edema, and increasing abdominal girth, all consistent with fluid overload/CHF. The patient's feeling much better now. He is currently resting comfortably in the intensive care unit. He's on 4 L of oxygen. He is getting saline at 10 mL an hour. Antibiotics are daptomycin and cefepime, as per infectious diseases. We can DC the BiPAP from the room. Sodium 136, potassium 4.4, chloride 101, CO2 24, anion gap 11, BUN 25, and creatinine 1. C-reactive protein is 7.1, N-terminal proBNP is 6410. Pro-calcitonin level is 0.66. Progress note dated 02/24/2022. 61-year-old male, seen in consultation 2 days ago. He seen again today in room 263. He came in with a symptom complex consistent with CHF. The patient had weight gain, lower extremity edema, and increasing abdominal girth, along with shortness of breath. He's feeling much better. He is on between 2-3 L of oxygen. Is getting saline at KVO. The patient is stable to be transferred out to the general medical floor, without telemetry in my opinion. Labs today include a sodium 136, potassium 3.9, chlorides 97, CO2 28, normal anion gap, BUN 24, and creatinine 1.05. N-terminal proBNP from yesterday was still elevated at 6410. Chest x-ray continues to show diffuse bilateral ribs, consistent with fluid overload. Progress note dated 02/25/2022. 61-year-old male seen again in room 263. He is currently on 2-3 L of oxygen by nasal cannula. The patient is not receiving any IV fluids. He had an uneventful night. He initially was admitted with shortness of breath, secondary to fluid overload. He is doing much better now. He has a history of both kidney and pancreas transplant at [facility]. White count 10.5, hemoglobin 11.2, hematocrit 34, with a normal platelet count. Or, potassium 3. 9, chlorides 95, CO2 27, BUN 24, and creatinine 1.13. All cultures are thus far negative. No chest x-ray today. Progress note dated 02/26/2022. 61-year-old male again seen in room 263. The patient was admitted with a diagnosis of increasing shortness of breath, secondary to fluid overload/CHF. He does have a history of a kidney and pancreas transplant, many years back. The patient is on 2-3 L of oxygen. The patient is not receiving any IV fluids. The nurses hopeful that the patient could be discharged home today. White count 7.6, hemoglobin 10.3, hematocrit 31.1, platelet count was normal. Sodium 133, potassium 3.9, chlorides 95, CO2 27, BUN 27, and creatinine 1.13. Chest x-ray f rom yesterday, shows improvement in the patient's overall volume status. Objective - Vital Signs Vital signs: Vital Signs Temp 97.9 F 02/26/22 08:00 Pulse 80 02/26/22 08:00 Resp 14 02/26/22 08:00 BP 123/64 02/26/22 08:00 Pulse Ox 95 02/26/22 08:00 FiO2 30 02/22/22 07:14 Intake & Output 02/25/22 02/26/22 02/26/22 18:59 06:59 18:59 Intake Total 100 Output Total 450 600 Balance -450 -500 Intake: Intake, IV Titration 100 Amount Cefepime 2 gm In Sodium 100 Chloride 0.9% 100 ml @ 25 mls/hr IVPB Q8H [facility] Rx#: [id number] Output: Urine 450 600 Other: Voiding Method Urinal Urinal Urinal # Voids 2 1 - Exam No acute distress, oriented 3. Currently on 3 L of oxygen. HEENT examination is grossly unremarkable. Neck supple. Full range of motion. No adenopathy thyromegaly or neck vein distention. Cardiovascular examination reveals regular rhythm rate. S1-S2 normal. No S3 or S4. No discernible murmur noted. Heart rate 80 bpm. Lungs reveal bibasilar crackles. Scattered rhonchi are noted. Saturations are 95% on 3 L. No wheezes appreciated. Abdomen soft, with bowel sounds, but distended. No tenderness. Extremities reveal some mild edema. No cyanosis or clubbing. Plantar ulcer is wrapped. Skin has multiple areas of ecchymoses. Neurologic examination is brief but nonfocal. - Labs CBC & Chem 7: 02/26/22 03:53 02/26/22 03:53 Labs: Abnormal Lab Results - Last 24 Hours (Table) 02/25/22 02/26/22 02/26/22 Range/Units 17:00 03:53 03:53 RBC 3.42 L (4.30-5.90) m/uL Hgb 10.3 L (13.0-17.5) gm/dL Hct 31.1 L (39.0-53.0) % RDW 17.0 H (11.5-15.5) % Sodium 133 L (137-145) mmol/L Chloride 95 L (98-107) mmol/L BUN 27 H (9-20) mg/dL POC Glucose (mg/dL) 143 H (70-110) mg/dL Microbiology - Last 24 Hours (Table) 02/21/22 19:53 Blood Culture - Preliminary Blood No Growth after 96 hours 02/21/22 19:53 Blood Culture - Preliminary Blood No Growth after 96 hours 02/22/22 12:50 Gram Stain - Final Foot - Left Wound Culture - Final Assessment and Plan Assessment: Acute hypoxemic respiratory failure, requiring BiPAP therapy, secondary to fluid overload/CHF. Status post kidney/pancreas transplant, 1997, [facility]. Nonhealing ulcer, lower extremities. History of diabetes mellitus, and diabetic neuropathy History of skin cancer. Gen. medical debility. Anemia of chronic disease Plan: Plan dated 02/22/2022. The patient was admitted to the intensive care unit, as an overflow patient, for 3 S. The patient is currently on daptomycin, as well as prednisone and Prograf, and cefepime. Additional recommendations and suggestions are forthcoming. Prognosis is guarded. The patient is on Lasix. He certainly is doing much better. He is currently not on BiPAP. We will continue to follow make recommendations along the way. Plan dated 02/23/2022. The patient is doing a bit better today. He's been weaned down to 4 L. He's currently on cefepime and daptomycin, for his lower extremity ulcers. He's feeling much less short of breath. He did not use BiPAP last night. Labs, x- rays, and medications are reviewed. We will continue to follow and make recommendations along the way. Prognosis is guarded. Plan dated 02/24/2022. The patient's doing much better. Patient has been weaned down to 3 L. Chest x- rays reviewed. Still does show a pattern of mild CHF. The patient continues on daptomycin and cefepime as per infectious diseases, for his lower extremity/foot ulcers. We will continue to follow make recommendations were appropriate. Labs, x-rays, and medications are reviewed. Prognosis is guarded. The patient can be transferred out of the intensive care unit. Plan dated 02/25/2022. The patient is awaiting transfer out of the intensive care unit. The patient is doing much better. His respiratory status is stable. Labs, x-rays, and medications are reviewed. He remains on antibiotics as per infectious diseases, for his lower extremity wounds and ulcers. All culture data thus far is negative. We will continue to follow make recommendations along the way. Prognosis is guarded. Plan dated 02/26/2022. The patient is doing well. He is currently on 3 L. Not receiving any IV fluids. Labs, x-rays, and medications are reviewed. His chest x-ray from yesterday does show improvement in the patient's overall volume status. The patient may be discharged home today, if, everything can be set up malcolm ropriately. His respiratory status is stable. We no longer need to see the patient moving forward, regardless of discharge today. The patient will follow- up with his primary care physician. Time with Patient: Less than 30
[2022-02-26] MEDS: GABAPENTIN 300 MG CAP PO SCH (21:08)
[2022-02-26] MEDS: LORazepam 1 MG TAB PO PRN (21:13)
[2022-02-27 04:29] VITALS: TEMP 98.1
[2022-02-27] MEDS: CEFEPIME 2 GM in SODIUM CHLORIDE 0.9% 100 ML IVPB SCH ×2 (04:52→12:23)
[2022-02-27] MEDS: predniSONE 5 MG TAB PO SCH (08:41)
[2022-02-27] MEDS: CHOLECALCIFEROL 25 MCG (1000 IU) TABLET PO SCH (08:41)
[2022-02-27] MEDS: hydrALAZINE HCL 25 MG TAB PO SCH ×2 (08:41→15:22)
[2022-02-27] MEDS: APIXABAN 5 MG TAB PO SCH ×2 (08:41→17:00)
[2022-02-27] MEDS: MAGNESIUM OXIDE 400 MG TAB PO SCH (08:41)
[2022-02-27] MEDS: TACROLIMUS 1 MG CAP PO SCH (08:41)
[2022-02-27] MEDS: ASPIRIN 81 MG PO SCH (08:41)
[2022-02-27] MEDS: FUROSEMIDE 40 MG TAB PO SCH ×2 (08:41→15:22)
[2022-02-27] MEDS: BRIMONIDINE TARTRATE 0.2% DROPS 5 ML BTL BOTH EYES SCH (08:42)
[2022-02-27] MEDS: TIMOLOL 0.5% OPHTH DROPS 5 ML BTL BOTH EYES SCH (08:42)
[2022-02-27] MEDS: DORZOLAMIDE HCL 2% DROPS 10 ML BTL LEFT EYE SCH (08:42)
[2022-02-27] MEDS: carvediloL 6.25 MG TAB PO SCH ×2 (08:42→17:00)
[2022-02-27 11:15] LABS: HCT 34.2 % (39.6-50.0); HGB 11.4 g/dL (13.0-17.0); MCH 29.8 pg (27.0-32.0); MCHC 33.3 g/dL (32.0-37.0); MCV 89.3 fL (80.0-97.0); Mean Platelet Volume 9.6 fL (9.5-12.2); NRBC Per 100 WBC 0 /100 WBCS (0.0-0.0); Platelet Count 364 X 10*3/uL (140-440); RBC 3.83 X 10*6/uL (4.40-5.60); RDW 17.1 % (11.5-14.5)
[2022-02-27 11:25] VITALS: BP 138/65; PULSE 83; RESP 18
--- NOTE | 2022-02-27 12:02 | P.PN ---
Subjective Progress Note Date: 02/27/22 Principal diagnosis: SOB Hospital Course: 61-year-old male with history of ESRD status post renal and pancreatic transplant in 1997, peripheral vascular disease, left foot osteomyelitis presented with shortness of breath. Patient in acute hypoxic respiratory failure likely in the setting of acute CHF exacerbation and possible pneumonia. He was initially on BiPAP, transfer to ICU, now on RA. He is also being treated for lower extremity wounds, possible osteomyelitis. Currently being treated with IV antibiotics, followed by infectious disease, cardiology, pulmonology. Awaiting antibiotic recommendations from ID for possible discharge home with home care. Subjective: Patient seen and examined. No acute events overnight. He denies any worsening shortness of breath. He denies any chest pain, abdominal pain, urinary or bowel problems. Pertinent positives and negatives as discussed above, a complete review of systems was performed and all other systems are negative. Vitals Signs Reviewed. General: no distress, appears at stated age, normal weight Head: atraumatic, normocephalic, symmetric Eyes: EOMI, no lid lag, anicteric sclera, pupils equal round reactive to light ENT: Nose and ears atraumatic Neck: supple Mouth: no lip lesion, mucus membranes moist Cardiovascular: S1S2 reg, no murmur, trace peripheral edema Lungs: Minimal Bibasilar scattered rales and rhonchi, no wheezing, no accessory muscle use, on 2L Abdominal: soft, nontender to palpation, no guarding Ext: muscle strength 4 out of 5 in all 4 extremities grossly, no gross muscle atrophy, no contractures, left heel covered in gauze Neuro: CN II-XI grossly intact, no gross focal neuro deficits Psych: Alert, oriented, appropriate affect Assessment and Plan: Acute hypoxic respiratory failure Acute diastolic CHF exacerbation Possible community-acquired pneumonia SIRS, likely sepsis with primary source being left foot and pneumonia -Wean oxygen -On IV cefepime -Was previously on IV Lasix, now transitioned to oral -Repeat echo showed LVEF 50-55% -Cardiology, pulmonology, ID following Left foot osteomyelitis -Cultures pending, negative so far -Continue cefepime -daptomycin discontinued -ID following, pending final antibiotic recommendations Status post kidney/pancreas transplant, 1997 Acute kidney injury, likely secondary to cardiorenal syndrome - now stable -Nephrology following -Creatinine improved with diuretics -Continue prednisone and Prograf, CellCept -decreased prograf to 1 mg daily New onset Atrial flutter/fibrillation -On eliquis, increased dose per cardiology -On beta owen Hypertension History of diabetes, diabetic neuropathy -home meds DVT ppx: eliquis Code status: Full code Anticipated discharge place: Home with home care Anticipated discharge time: Likely Monday Objective - Vital Signs Vital signs: Vital Signs Temp 98.1 F 02/27/22 11:00 Pulse 83 02/27/22 11:00 Resp 18 02/27/22 11:00 BP 138/65 02/27/22 11:00 Pulse Ox 93 L 02/27/22 11:00 FiO2 30 02/22/22 07:14 Intake & Output 02/26/22 02/27/22 02/27/22 18:59 06:59 18:59 Output Total 1350 Balance -1350 Weight 53.9 kg Output: Urine 1350 Other: Voiding Method Urinal Urinal # Voids 2 # Bowel Movements 1 - Labs CBC & Chem 7: 02/27/22 07:14 02/26/22 03:53 Labs: Abnormal Lab Results - Last 24 Hours (Table) 02/27/22 Range/Units 07:14 RBC 3.83 L (4.40-5.60) X 10*6/uL Hgb 11.4 L (13.0-17.0) g/dL Hct 34.2 L (39.6-50.0) % RDW 17.1 H (11.5-14.5) % Microbiology - Last 24 Hours (Table) 02/21/22 19:53 Blood Culture - Preliminary Blood No Growth after 120 hours 02/21/22 19:53 Blood Culture - Preliminary Blood No Growth after 120 hours 02/22/22 12:50 Anaerobic Culture - Final Foot - Left
[2022-02-27 12:21] LABS: African American GFR (CKD) 93.9 (60.0-200.0); Anion Gap 10.9 mmol/L (10.00-18.00); BUN/Creat Ratio 19.41 Ratio (12.00-20.00); Blood Urea Nitrogen 19.6 mg/dL (9.0-27.0); Calcium 8.8 mg/dL (8.7-10.3); Carbon Dioxide 28.6 mmol/L (20.0-27.5); Potassium 3.6 mmol/L (3.5-5.5)
--- NOTE | 2022-02-27 14:17 | P.PN ---
Subjective Progress Note Date: 02/27/22 Principal diagnosis: Heart failure with preserved ejection fraction This is a 61-year-old gentleman with a past medical history significant for hypertension as well as dyslipidemia as well as history of kidney and pancreatic transplant in 1997 as well as history of critical limb ischemia of the left foot presented to the hospital complaining of shortness of breath. The patient was seen this morning in the intensive care unit where he was on BiPAP. He is somewhat poor historian. Apparently the patient presented to the emergency department complaining of shortness of breath for the last 2 weeks. The shortness of breath was not associated with any chest pain or chest discomfort nor lower extremities edema. No fever or chills before he presented to the hospital but the patient was a spiking fever in the intensive care unit when he was seen this morning with a temperature of 101. No symptoms of any chest pain or chest discomfort. No cough or sputum production. Further investigation was performed in the emergency department including a chest x-ray which showed finding consistent with possible pneumonia with a component of heart failure with bilateral pleural effusion. NT proBNP came in to be elevated at almost 8000. Also an EKG was performed and showed what it seems to be atrial flutter/atrial fibrillation with overall controlled heart rate. According to the patient no history of coronary artery disease and no heart failure and no cardiac arrhythmia and never seen any manager of medical before. The patient had multiple hospital admission in the past but never seen by cardiology service. He underwent an echo back in 2021 and that revealed preserved left ventricular systolic function was no significant valvular abnormalities. He is in process of having another echo during this admission. When he was seen and evaluated this morning he does have mild edema and he also does have diminished breathing sounds bilaterally/wheezing. Currently he is on Lasix. He is also on BiPAP February [id number] The patient was seen this morning. He is doing better. The shortness of breath is better. The edema is better as well. He has been diuresing on Lasix IV. He underwent an echo which revealed preserved left ventricle systolic function was no significant valvular abnormalities. I will suggest continue IV Lasix for additional 24 hours would continue monitoring the kidney function and electrolytes and follow-up with the patient. February 242021 The patient was seen this morning. He is overall doing better. He is converted to normal sinus mechanism. He was started on oral anticoagulation yesterday. He continues to be on IV Lasix. He seems to be somewhat euvolemic on examination. Chest x-ray is in process to be done. Currently is on IV Lasix. We will consider switching to by mouth Lasix in the next 24 hour February 252021 The patient was seen and evaluated this morning. He is doing overall better. He remains in sinus mechanism. He is currently on Lasix by mouth. I'm going to increase the dose of Eliquis 25 mg by mouth twice a day. I'll follow-up with the patient. February 262021 The patient was seen and evaluated this morning. He remains hemodynamically stable. He remains asymptomatic from the cardiac standpoint overview. He remains in normal sinus mechanism and currently is on oral anticoagulation. He is on aspirin for CAD/critical limb ischemia. He is waiting on insurance issues to be discharged into a rehab facility where he can go on antibiotic. 02/27/2022 The patient was seen and examined this morning. He is transferred out of the ICU to the fifth floor. He remains asymptomatic and he remains hemodynamically stable and maintaining normal sinus mechanism. He is on oral anticoagulation as well as AV mendy owen agents with carvedilol. From the cardiac standpoint of view, I would continue the current medical regimen and follow-up with the patient on when necessary case Objective - Vital Signs Vital signs: Vital Signs Temp 98.1 F 02/27/22 11:00 Pulse 83 02/27/22 11:00 Resp 18 02/27/22 11:00 BP 138/65 02/27/22 11:00 Pulse Ox 93 L 02/27/22 11:00 FiO2 30 02/22/22 07:14 Intake & Output 02/26/22 02/27/22 02/27/22 18:59 06:59 18:59 Output Total 1350 Balance -1350 Weight 53.9 kg Output: Urine 1350 Other: Voiding Method Urinal Urinal # Voids 2 # Bowel Movements 1 - Constitutional General appearance: Present: no acute distress - Respiratory Respiratory: bilateral: CTA - Cardiovascular Rhythm: regular - Labs CBC & Chem 7: 02/27/22 07:14 02/27/22 07:14 Labs: Abnormal Lab Results - Last 24 Hours (Table) 02/27/22 02/27/22 Range/Units 07:14 07:14 RBC 3.83 L (4.40-5.60) X 10*6/uL Hgb 11.4 L (13.0-17.0) g/dL Hct 34.2 L (39.6-50.0) % RDW 17.1 H (11.5-14.5) % Carbon Dioxide 28.6 H (20.0-27.5) mmol/L Microbiology - Last 24 Hours (Table) 02/21/22 19:53 Blood Culture - Preliminary Blood No Growth after 120 hours 02/21/22 19:53 Blood Culture - Preliminary Blood No Growth after 120 hours 02/22/22 12:50 Anaerobic Culture - Final Foot - Left Assessment and Plan Assessment: Assessment Shortness of breath likely related to a combination of pneumonia and heart failure Heart failure exacerbation was evidence off left more than right failure related to heart failure with preserved ejection fraction Bilateral pleural effusion Multiple comorbid conditions Plan Continue the current medical regimen Continue the current dose of oral anticoagulation Follow-up with the patient on as needed
--- NOTE | 2022-02-27 15:13 | P.DS ---
Providers Date of admission: 02/21/22 21:31 Expected date of discharge: 02/27/22 Attending physician: Abraham Nino MD Consults: 02/21/22 21:27 Consult Physician Routine Consulting Provider: Baron Arroyo Consult Reason/Comments: new onset congestive heart failure, respiratory failure Do you want consulting provider notified?: Yes, Notify in am Consult Physician Routine Consulting Provider: Flaquito Shane Consult Reason/Comments: Chronic kidney disease, hx renal transplant Do you want consulting provider notified?: Yes, Notify in am 02/21/22 21:31 Consult Physician Routine Consulting Provider: Ryan Galvez Consult Reason/Comments: New-onset congestive heart failure Do you want consulting provider notified?: Yes, Notify in am 02/22/22 02:26 Consult Physician Urgent Consulting Provider: Carlos Sow Consult Reason/Comments: sepsis Do you want consulting provider notified?: Yes Primary care physician: Devon Brand MD Hospital Course: Discharge Diagnosis: Acute hypoxic respiratory failure Acute diastolic CHF exacerbation Community-acquired pneumonia Sepsis Left foot osteomyelitis Acute kidney injury Status post kidney/pancreas transplant New-onset atrial fibrillation Hypertension Diabetes, diabetic neuropathy Hospital Course: 61-year-old male with history of ESRD status post renal and pancreatic transplant in 1997, peripheral vascular disease, left foot osteomyelitis presented with shortness of breath. Patient in acute hypoxic respiratory failure likely in the setting of acute CHF exacerbation and possible pneumonia. He was initially on BiPAP, transferred to ICU. He required IV diuretics, now transitioned to oral diuretics. Respiratory status improved, not on room air. Echo showed LVEF of 50-55%. Patient also remained on IV cefepime and daptomycin for sepsis secondary to pneumonia and left foot osteomyelitis. ESR and CRP were elevated. Cultures were negative. Patient was transitioned off of daptomycin and cefepime. At presentation, patient also had mildly elevated creatinine. Acute kidney injury likely in the setting of cardiorenal syndrome. Prograf levels were elevated, decreased home dose to 1 mg daily. Throughout the course of his stay, patient was evaluated by pulmonology, cardiology, nephrology. Patient will need close monitoring of PCP, and nephrology as an outpatient Patient seen and examined at bedside. Vital signs reviewed and stable. General: no distress, appears at stated age, normal weight Head: atraumatic, normocephalic, symmetric Eyes: EOMI, no lid lag, anicteric sclera, pupils equal round reactive to light ENT: Nose and ears atraumatic Neck: supple Mouth: no lip lesion, mucus membranes moist Cardiovascular: S1S2 reg, no murmur, no edema Lungs: CTAB, no wheezing, no accessory muscle use, on room air Abdominal: soft, nontender to palpation, no guarding Ext: muscle strength 4 out of 5 in all 4 extremities grossly, no gross muscle atrophy, no contractures, small puncture wound on the plantar surface of left Neuro: CN II-XI grossly intact, no gross focal neuro deficits Psych: Alert, oriented, appropriate affect A total of 49 minutes of time were spent preparing this complex discharge summary. Patient was discharged on 02/27/22 at 14:43. Patient Condition at Discharge: Stable Plan - Discharge Summary Discharge Rx Participant: No New Discharge Prescriptions: New Tacrolimus [Prograf] 1 mg PO DAILY cap Apixaban [Eliquis] 5 mg PO BID #60 tab Furosemide [Lasix] 40 mg PO BID@0900,1600 #60 tab Continue predniSONE 5 mg PO DAILY mycophenolate mofetiL [Cellcept] 500 mg PO BID Aspirin 81 mg PO DAILY Multivitamin [Men's Multi-Vitamin] 1 tab PO DAILY Dorzolamide 2% [Trusopt 2%] 1 drop LEFT EYE BID carvediloL [Coreg] 6.25 mg PO BID Brimonidine Tartrate/Timolol [Combigan 0.2%-0.5% Eye Drops] 1 drop BOTH EYES BID Gabapentin 300 mg PO HS #3 cap Cholecalciferol [Vitamin D3 (25 Mcg = 1000 Iu)] 25 mcg PO DAILY Bimatoprost [Lumigan 0.01% Ophth Soln] 1 drop RIGHT EYE HS Calcium Carbonate [Tums] 500 mg PO TID PRN PRN Reason: Heartburn NIFEdipine XL [Procardia XL] 60 mg PO BID hydrALAZINE HCL [Apresoline] 25 mg PO TID tab Magnesium Oxide [Mag-Ox] 400 mg PO DAILY tab Ondansetron [Zofran] 4 mg PO TID PRN PRN Reason: Nausea Folic Acid 0.8 mg PO DAILY Discontinued Tacrolimus [Prograf] 1 mg PO BID Lovastatin [Mevacor] 20 mg PO DIRECTED Discharge Medication List Aspirin 81 mg PO DAILY 09/27/13 [History] Multivitamin [Men's Multi-Vitamin] 1 tab PO DAILY 09/27/13 [History] mycophenolate mofetiL [Cellcept] 500 mg PO BID 09/27/13 [History] predniSONE 5 mg PO DAILY 09/27/13 [History] Dorzolamide 2% [Trusopt 2%] 1 drop LEFT EYE BID 12/02/14 [History] carvediloL [Coreg] 6.25 mg PO BID 02/15/18 [History] Brimonidine Tartrate/Timolol [Combigan 0.2%-0.5% Eye Drops] 1 drop BOTH EYES BID 11/25/21 [History] Calcium Carbonate [Tums] 500 mg PO TID PRN 11/25/21 [History] NIFEdipine XL [Procardia XL] 60 mg PO BID 11/25/21 [History] Gabapentin 300 mg PO HS #3 cap 01/19/22 [Rx] Magnesium Oxide [Mag-Ox] 400 mg PO DAILY tab 01/19/22 [Rx] hydrALAZINE HCL [Apresoline] 25 mg PO TID tab 01/19/22 [Rx] Bimatoprost [Lumigan 0.01% [facility] Soln] 1 drop RIGHT EYE HS 02/21/22 [History] Cholecalciferol [Vitamin D3 (25 Mcg = 1000 Iu)] 25 mcg PO DAILY 02/21/22 [History] Folic Acid 0.8 mg PO DAILY 02/21/22 [History] Ondansetron [Zofran] 4 mg PO TID PRN 02/21/22 [History] Apixaban [Eliquis] 5 mg PO BID #60 tab 02/27/22 [Rx] Furosemide [Lasix] 40 mg PO BID@0900,1600 #60 tab 02/27/22 [Rx] Tacrolimus [Prograf] 1 mg PO DAILY cap 02/27/22 [Rx] Follow up Appointment(s)/Referral(s): Devon Brand MD [Primary Care Provider] - 1-2 days Residential Home,Health [NON-STAFF] - As Needed Activity/Diet/Wound Care/Special Instructions: Please follow up with PCP in 1-2 days. Please see your transplant specialist as soon as possible. Discharge Disposition: HOME SELF-CARE
== END 2022-02-27 18:12 | disposition home health service (06) | DRG 871 ==
LOC: EC 19:01 → 3SCARD 21:31 → 2SICU 02-22 00:56 → 5NMEDONC 02-26 17:14
PROVIDERS: ADMIT Internal Medicine; ATTEND Internal Medicine
PROC: 5A09357 Assistance with Respiratory Ventilation, Less than 24 Consecutive Hours, Continuous Positive Airway Pressure (ICD-10-PCS; principal; 2022-02-21)
DX: A41.9 Sepsis, unspecified organism (principal); I50.33 Acute on chronic diastolic (congestive) heart failure; N18.6 End stage renal disease; J18.9 Pneumonia, unspecified organism; J96.01 Acute respiratory failure with hypoxia; T86.12 Kidney transplant failure; Z94.83 Pancreas transplant status; N17.9 Acute kidney failure, unspecified; I13.2 Hypertensive heart and chronic kidney disease with heart failure and with stage 5 chronic kidney disease, or end stage renal disease; I48.92 Unspecified atrial flutter; M86.9 Osteomyelitis, unspecified; J44.0 Chronic obstructive pulmonary disease with (acute) lower respiratory infection; L97.429 Non-pressure chronic ulcer of left heel and midfoot with unspecified severity; D63.1 Anemia in chronic kidney disease; E11.22 Type 2 diabetes mellitus with diabetic chronic kidney disease; E11.51 Type 2 diabetes mellitus with diabetic peripheral angiopathy without gangrene; E11.621 Type 2 diabetes mellitus with foot ulcer; E11.69 Type 2 diabetes mellitus with other specified complication; E11.40 Type 2 diabetes mellitus with diabetic neuropathy, unspecified; I70.222 Atherosclerosis of native arteries of extremities with rest pain, left leg; I48.0 Paroxysmal atrial fibrillation; Z20.822 Contact with and (suspected) exposure to COVID-19; Z28.310 Unvaccinated for COVID-19; E87.5 Hyperkalemia; E78.5 Hyperlipidemia, unspecified; I25.10 Atherosclerotic heart disease of native coronary artery without angina pectoris; D75.839 Thrombocytosis, unspecified; Z79.82 Long term (current) use of aspirin; Z79.52 Long term (current) use of systemic steroids; Z79.624 Long term (current) use of inhibitors of nucleotide synthesis; Z79.899 Other long term (current) drug therapy; Z86.14 Personal history of Methicillin resistant Staphylococcus aureus infection; Z85.828 Personal history of other malignant neoplasm of skin; Z88.0 Allergy status to penicillin; Z91.040 Latex allergy status; Y83.0 Surgical operation with transplant of whole organ as the cause of abnormal reaction of the patient, or of later complication, without mention of misadventure at the time of the procedure
CPT/HCPCS: 36415; 71045; 71046; 80048; 80053; 80197; 81003; 83605; 83735; 83880; 84145; 84484; 85025; 85027; 85610; 85652; 85730; 86140; 87040; 87070; 87075; 87205; 87635; 93005; 93308; 94640; 94660; 96365; 96366; 96367; 96375; 99291

== ENCOUNTER → 2022-03-22 | Outpatient (CLI) | payer MEDICARE, OTHER ==
[~2022-03-22] MED LIST changes: -CASIRIVIMAB (REGN10933) (EUA) 600 MG, IMDEVIMAB (REGN10987) (EUA) 600 MG in SODIUM CHLO... IVPB ONE; -SODIUM CHLORIDE 0.9% 50 ML IVPB ONE
[2022-03-22 08:03] VITALS: BP 121/69; PULSE 74; RESP 16; TEMP 98.1
== END ==
LOC: PROCWHC3 07:40
PROVIDERS: ATTEND Internal Medicine
DX: I73.9 Peripheral vascular disease, unspecified (principal); Z94.0 Kidney transplant status; E78.2 Mixed hyperlipidemia; Z91.040 Latex allergy status; Z88.0 Allergy status to penicillin; Z87.891 Personal history of nicotine dependence
CPT/HCPCS: 96523

== ENCOUNTER 2022-04-11 11:16 | Emergency (ER) | payer MEDICARE, OTHER ==
[2022-04-11 11:49] VITALS: PULSE 78; TEMP 98.3
[2022-04-11] MEDS ORDERED: SODIUM CHLORIDE 0.9% 1,000 ML IV STA (13:52)
[2022-04-11] MEDS ORDERED: ONDANSETRON 4 MG/2 ML VIAL IVP STA (13:52)
[2022-04-11] MEDS ORDERED: FAMOTIDINE 20 MG/2 ML VIAL IV STA (13:53)
--- NOTE | 2022-04-11 13:54 | ED ---
General Adult HPI - General Chief complaint: Nausea/Vomiting/Diarrhea Stated complaint: not eating, weakness Time Seen by Provider: 04/11/22 13:03 Source: patient, family, RN notes reviewed Mode of arrival: ambulatory Limitations: no limitations - History of Present Illness Initial comments: Patient is a pleasant 61-year-old male presenting to the emergency Department with generalized weakness and decreased appetite. Symptoms have progressed over a month or more. Patient has had an increase recent medical problems including foot ulcer that is now improving. Patient is also recently had problems with congestive heart failure. Patient has lack of appetite. No difficulty with swallowing. Patient is tolerating fluids. No isolated area of weakness. No confusion. Patient has been fatigued and losing weight. - Related Data Home Medications Medication Instructions Recorded Confirmed Aspirin 81 mg PO DAILY 09/27/13 03/22/22 Multivitamin [Men's Multi-Vitamin] 1 tab PO DAILY 09/27/13 03/22/22 mycophenolate mofetiL [Cellcept] 500 mg PO BID 09/27/13 03/22/22 predniSONE 5 mg PO DAILY 09/27/13 03/22/22 Dorzolamide 2% [Trusopt 2%] 1 drop LEFT EYE BID 12/02/14 03/22/22 carvediloL [Coreg] 6.25 mg PO BID 02/15/18 03/22/22 Brimonidine Tartrate/Timolol 1 drop BOTH EYES BID 11/25/21 03/22/22 [Combigan 0.2%-0.5% Eye Drops] Calcium Carbonate [Tums] 500 mg PO TID PRN 11/25/21 03/22/22 NIFEdipine XL [Procardia XL] 60 mg PO BID 11/25/21 03/22/22 Bimatoprost [Lumigan 0.01% Ophth 1 drop RIGHT EYE HS 02/21/22 03/22/22 Soln] Cholecalciferol [Vitamin D3 (25 25 mcg PO DAILY 02/21/22 03/22/22 Mcg = 1000 Iu)] Folic Acid 0.8 mg PO DAILY 02/21/22 03/22/22 Ondansetron [Zofran] 4 mg PO TID PRN 02/21/22 03/22/22 Previous Rx's Medication Instructions Recorded Gabapentin 300 mg PO HS #3 cap 01/19/22 Magnesium Oxide [Mag-Ox] 400 mg PO DAILY tab 01/19/22 hydrALAZINE HCL [Apresoline] 25 mg PO TID tab 01/19/22 Apixaban [Eliquis] 5 mg PO BID #60 tab 02/27/22 Furosemide [Lasix] 40 mg PO BID@0900,1600 #60 tab 02/27/22 Tacrolimus [Prograf] 1 mg PO DAILY cap 02/27/22 Metoclopramide HCl [Reglan] 10 mg PO Q6HR PRN #15 tablet 04/11/22 Allergies Allergy/AdvReac Type Severity Reaction Status Date / Time latex Allergy Rash/Hives Verified 04/11/22 11:49 Penicillins Allergy Rash/Hives Verified 04/11/22 11:49 Review of Systems ROS Statement: Those systems with pertinent positive or pertinent negative responses have been documented in the HPI. ROS Other: All systems not noted in ROS Statement are negative. Constitutional: Denies: fever Eyes: Denies: eye pain ENT: Denies: ear pain Respiratory: Denies: cough, dyspnea Cardiovascular: Denies: chest pain Endocrine: Reports: fatigue Gastrointestinal: Reports: as per HPI Genitourinary: Denies: dysuria Musculoskeletal: Denies: back pain Skin: Denies: rash Neurological: Reports: as per HPI. Denies: headache Past Medical History Past Medical History: Cancer, Skin Disorder Additional Past Medical History / Comment(s): RT FOOT OPEN AREA, PVD, WAS TX FOR DIABETES UP UNTIL HIS TRANSPLANT(). 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 Past Anesthesia/Blood Transfusion Reactions: No Reported Reaction Past Psychological History: Anxiety Smoking Status: Former smoker Past Alcohol Use History: None Reported Past Drug Use History: None Reported - Past Family History Father Additional Family Medical History / Comment(s): Pt states father of motorcycle accident 1970 Mother Family Medical History: Coronary Artery Disease (CAD) General Exam Limitations: no limitations General appearance: alert, in no apparent distress Head exam: Present: normocephalic Eye exam: Present: normal appearance ENT exam: Present: normal oropharynx Neck exam: Present: normal inspection Respiratory exam: Present: normal lung sounds bilaterally Cardiovascular Exam: Present: regular rate, normal rhythm GI/Abdominal exam: Present: soft. Absent: distended, tenderness, guarding, rebound, rigid Extremities exam: Present: normal inspection Neurological exam: Present: alert. Absent: motor sensory deficit Psychiatric exam: Present: normal affect, normal mood Skin exam: Present: normal color Course Vital Signs 04/11/22 11:45 Temperature 98.3 F Pulse Rate 78 Respiratory 16 Rate Blood Pressure 122/67 O2 Sat by Pulse 98 Oximetry Medical Decision Making - Medical Decision Making Patient reevaluated. Patient and family updated. Left foot examined and appears to be healing well. Patient does have an appointment with Dr. Cesar figueroa. does question depression causing some symptoms. A feliz is advised close follow-up with his doctor regarding this. Also regarding decreased appetite. Also recommended follow-up with gastroenterology. - Lab Data Result diagrams: 04/11/22 15:04 04/11/22 15:04 Lab Results 04/11/22 04/11/22 Range/Units 15:04 15:04 WBC 12.9 H (3.8-10.6) k/uL RBC 4.37 (4.30-5.90) m/uL Hgb 12.7 L (13.0-17.5) gm/dL Hct 35.9 L (39.0-53.0) % MCV 82.1 D (80.0-100.0) fL MCH 29.0 (25.0-35.0) pg MCHC 35.3 (31.0-37.0) g/dL RDW 15.0 (11.5-15.5) % Plt Count 545 H (150-450) k/uL MPV 7.0 Neutrophils % 83 % Lymphocytes % 8 % Monocytes % 6 % Eosinophils % 0 % Basophils % 0 % Neutrophils # 10.6 H (1.3-7.7) k/uL Lymphocytes # 1.0 (1.0-4.8) k/uL Monocytes # 0.8 (0-1.0) k/uL Eosinophils # 0.0 (0-0.7) k/uL Basophils # 0.1 (0-0.2) k/uL Sodium 130 L (137-145) mmol/L Potassium 4.1 (3.5-5.1) mmol/L Chloride 92 L (98-107) mmol/L Carbon Dioxide 28 (22-30) mmol/L Anion Gap 10 mmol/L BUN 23 H (9-20) mg/dL Creatinine 1.10 (0.66-1.25) mg/dL Est GFR (CKD-EPI)AfAm 85 (>60 ml/min/1.73 sqM) Est GFR (CKD-EPI)NonAf 73 (>60 ml/min/1.73 sqM) Glucose 121 H (74-99) mg/dL Calcium 9.0 (8.4-10.2) mg/dL Total Bilirubin 0.8 (0.2-1.3) mg/dL AST 33 (17-59) U/L ALT 24 (4-49) U/L Alkaline Phosphatase 121 (38-126) U/L Total Protein 8.1 (6.3-8.2) g/dL Albumin 3.8 (3.5-5.0) g/dL Amylase 45 (30-110) U/L Lipase 72 (23-300) U/L - Radiology Data Interpreted by me: Abdominal x-ray reveals no acute process. Chest x-ray shows no acute process Disposition Clinical Impression: Anorexia Disposition: HOME SELF-CARE Condition: Stable Instructions (If sedation given, give patient instructions): Anorexia Nervosa (ED) Additional Instructions: Prescription sent to pharmacy. Please do follow-up with primary care physician in the next day or 2 for recheck. Return for vomiting, not tolerating oral intake, fever, worsening symptoms or any other concerns. Prescriptions: Metoclopramide HCl [Reglan] 10 mg PO Q6HR PRN #15 tablet PRN Reason: Nausea Is patient prescribed a controlled substance at d/c from ED?: No Referrals: Devon Brand MD [Primary Care Provider] - 1-2 days Time of Disposition: 16:45
--- NOTE | 2022-04-11 14:55 | XR ---
EXAMINATION TYPE: XR chest 2V DATE OF EXAM: 04/11/2022 COMPARISON: 02/25/2022 HISTORY: Shortness of breath TECHNIQUE: Frontal and lateral views of the chest are obtained. FINDINGS: Scattered senescent parenchymal changes noted. Hyperinflation compatible with COPD. No evidence for infiltrate. No evidence for atelectasis. Heart size is stable. Mediastinal structures are stable and grossly unremarkable. No evidence for hilar prominence. Degenerative changes dorsal spine. IMPRESSION: 1. No evidence for acute pulmonary disease.
--- NOTE | 2022-04-11 14:57 | XR ---
EXAMINATION TYPE: XR KUB DATE OF EXAM: 04/11/2022 COMPARISON: 12/02/2014 HISTORY: Pain TECHNIQUE: Single supine KUB image of the abdomen is obtained FINDINGS: Small bowel demonstrates no evidence for dilatation or air fluid levels. Gas and fecal material is seen in non-distended colon. No convincing evidence for pneumoperitoneum. No unusual calcifications. The lung bases are clear. The osseous structures are intact. IMPRESSION: 1. Overall nonobstructive bowel gas pattern.
[2022-04-11 15:33] LABS: Basophils # (A) 0.1 k/uL (0-0.2); Basophils % (A) 0 %; Eosinophils % (A) 0 %; HCT 35.9 % (39.0-53.0); HGB 12.7 gm/dL (13.0-17.5); Lymphocytes % (A) 8 %; MCHC 35.3 g/dL (31.0-37.0); Monocytes # (A) 0.8 k/uL (0-1.0); Monocytes % (A) 6 %; Neutrophils # (A) 10.6 k/uL (1.3-7.7); Neutrophils % (A) 83 %; Platelet Count 545 k/uL (150-450); RBC 4.37 m/uL (4.30-5.90); WBC 12.9 k/uL (3.8-10.6)
[2022-04-11 15:43] LABS: MCV 82.1 fL (80.0-100.0)
[2022-04-11 16:19] LABS: Albumin 3.8 g/dL (3.5-5.0); Potassium 4.1 mmol/L (3.5-5.1); Total Bilirubin 0.8 mg/dL (0.2-1.3); Total Protein 8.1 g/dL (6.3-8.2)
[2022-04-11 17:23] VITALS: BP 149/70; RESP 20
== END 2022-04-11 17:29 | disposition home or self-care (01) ==
LOC: EC 11:16
DX: R63.0 Anorexia (principal); F41.9 Anxiety disorder, unspecified; E11.51 Type 2 diabetes mellitus with diabetic peripheral angiopathy without gangrene; I50.9 Heart failure, unspecified; Z79.82 Long term (current) use of aspirin; Z91.040 Latex allergy status; Z87.891 Personal history of nicotine dependence; Z88.0 Allergy status to penicillin
CPT/HCPCS: 36415; 80053; 82150; 83690; 85025; 71046; 74018; 99285; 96374; 96375; 96361; J2405

== ENCOUNTER 2022-04-16 11:42 | Inpatient (IN) | payer MEDICARE, OTHER ==
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
--- NOTE | 2022-04-16 13:57 | XR ---
EXAMINATION TYPE: XR foot complete LT, XR ankle complete LT DATE OF EXAM: 04/16/2022 12:55 PM INDICATION: Patient age:Male; 61 years old; Reason for study: fracture; COMPARISON: 02/23/2022 TECHNIQUE: The left foot and ankle foot was examined in the AP, oblique, and lateral projections. FINDINGS: Markedly abnormal exam with suspected Charcot arthropathy with a majority of the tarsals diffusely ab normal with degeneration changes. There is acute fractures of the distal fibula with posterior angula tion and fracture of the medial malleolus. Atherosclerosis of the arterial vasculature. There is soft tissue swelling throughout the foot. Osseous erosion changes to the tibial plafond. IMPRESSION: 1. Acute fractures of the distal fibula with posterior angulation and tibia medial malleolus. 2. Charcot arthropathy with deformity of the first digit interphalangeal joint, amputation of the fi fth digit distal metatarsal. The hindfoot and forefoot midfoot demonstrate Charcot arthropathy change s diffuse degeneration. 3. Ill-defined tibial plafond which could be part of the Charcot arthropathy.
[2022-04-16] MEDS ORDERED: traMADol 50 MG TAB PO STA (14:58)
[2022-04-16 15:58] LABS: Basophils % (A) 0 %; Eosinophils % (A) 0 %; HCT 27.2 % (39.0-53.0); Lymphocytes % (A) 4 %; MCH 28.3 pg (25.0-35.0); Mean Platelet Volume 7.5; Monocytes % (A) 4 %; Neutrophils % (A) 89 %; Platelet Count 472 k/uL (150-450); RBC 3.36 m/uL (4.30-5.90); RDW 14.8 % (11.5-15.5); WBC 20.1 k/uL (3.8-10.6)
[2022-04-16 15:59] LABS: Lymphocytes # (A) 0.7 k/uL (1.0-4.8); Monocytes # (A) 0.9 k/uL (0-1.0); Neutrophils # (A) 17.9 k/uL (1.3-7.7)
[2022-04-16 16:04] LABS: HGB 9.5 gm/dL (13.0-17.5)
[2022-04-16 16:19] LABS: INR 1.4 (<1.2); Partial Thromboplastin Time 42.7 sec (22.0-30.0)
[2022-04-16 16:56] LABS: Albumin 3.2 g/dL (3.5-5.0); Calcium 8.2 mg/dL (8.4-10.2); Magnesium 2.1 mg/dL (1.6-2.3); Phosphorus 4.1 mg/dL (2.5-4.5); Potassium 4.2 mmol/L (3.5-5.1); Total Bilirubin 1.1 mg/dL (0.2-1.3); Total Protein 6.9 g/dL (6.3-8.2)
[2022-04-16] MEDS ORDERED: SODIUM CHLORIDE 0.9% 500 ML IV STA (17:02)
[2022-04-16] MEDS ORDERED: SODIUM CHLORIDE 0.9% 1,000 ML IV STA (17:02)
[2022-04-16] MEDS ORDERED: ONDANSETRON 4 MG/2 ML VIAL IVP PRN (17:08)
[2022-04-16] MEDS ORDERED: NALOXONE 0.4 MG/ML 1 ML VIAL IV PRN (17:08)
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
[2022-04-16] MEDS: MELATONIN 3 MG TABLET PO PRN (20:29)
[2022-04-16] MEDS: HYDROcodone/APAP 5-325MG 1 EACH TAB PO PRN (20:29)
[2022-04-16] MEDS: MORPHINE SULFATE 4 MG/ML SYRINGE IVP PRN (23:12)
[2022-04-16] MEDS: GABAPENTIN 300 MG CAP PO SCH (23:16)
[2022-04-16] MEDS: hydrALAZINE HCL 25 MG TAB PO SCH (23:16)
[2022-04-16] MEDS: ATORVASTATIN 10 MG TAB PO SCH (23:16)
[2022-04-16] MEDS: TACROLIMUS 1 MG CAP PO SCH (23:17)
[2022-04-16] MEDS: BRIMONIDINE TARTRATE 0.2% DROPS 5 ML BTL BOTH EYES SCH (23:34)
[2022-04-16] MEDS: LATANOPROST 0.005% OPHTH DROPS 2.5 ML BTL RIGHT EYE SCH (23:34)
[2022-04-16] MEDS: DORZOLAMIDE HCL 2% DROPS 10 ML BTL LEFT EYE SCH (23:34)
[2022-04-16] MEDS: TIMOLOL 0.5% OPHTH DROPS 5 ML BTL BOTH EYES SCH (23:34)
[2022-04-17 06:11] LABS: HGB 8.4 gm/dL (13.0-17.5); MCHC 33.7 g/dL (31.0-37.0); MCV 83.2 fL (80.0-100.0); Mean Platelet Volume 7.5; Platelet Count 452 k/uL (150-450); RBC 3.01 m/uL (4.30-5.90); RDW 14.9 % (11.5-15.5); WBC 15.7 k/uL (3.8-10.6)
[2022-04-17] MEDS: MORPHINE SULFATE 4 MG/ML SYRINGE IVP PRN (06:52)
[2022-04-17] MEDS: TACROLIMUS 1 MG CAP PO SCH ×2 (08:36→21:29)
[2022-04-17] MEDS: hydrALAZINE HCL 25 MG TAB PO SCH ×3 (08:36→21:28)
[2022-04-17] MEDS: predniSONE 5 MG TAB PO SCH (08:36)
[2022-04-17] MEDS: carvediloL 6.25 MG TAB PO SCH ×2 (08:36→21:28)
[2022-04-17] MEDS: ASPIRIN 81 MG PO SCH (08:36)
[2022-04-17] MEDS: PANTOPRAZOLE 40 MG TABLET PO SCH (08:36)
[2022-04-17] MEDS: BRIMONIDINE TARTRATE 0.2% DROPS 5 ML BTL BOTH EYES SCH ×2 (08:37→21:28)
[2022-04-17] MEDS: DORZOLAMIDE HCL 2% DROPS 10 ML BTL LEFT EYE SCH ×2 (08:37→21:28)
[2022-04-17] MEDS ORDERED: FUROSEMIDE 40 MG TAB PO SCH (09:00)
[2022-04-17 09:59] LABS: % Iron Saturation 16.48 (15.00-50.00); African American GFR (CKD) 80.3 (60.0-200.0); Anion Gap 11.4 mmol/L (10.00-18.00); BUN/Creat Ratio 32.61 Ratio (12.00-20.00); Blood Urea Nitrogen 37.5 mg/dL (9.0-27.0); Calcium 8.2 mg/dL (8.7-10.3); Carbon Dioxide 24.7 mmol/L (20.0-27.5); Non-African American GFR(CKD) 69.3 (60.0-200.0); Potassium 3.9 mmol/L (3.5-5.5)
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
[2022-04-17] MEDS: HYDROcodone/APAP 5-325MG 1 EACH TAB PO PRN ×3 (11:25→21:32)
[2022-04-17] MEDS: TIMOLOL 0.5% OPHTH DROPS 5 ML BTL BOTH EYES SCH ×2 (11:28→21:27)
[2022-04-17] MEDS: SODIUM CHLORIDE 0.9% 1,000 ML IV SCH (11:28)
--- NOTE | 2022-04-17 12:15 | P.PN ---
Subjective Progress Note Date: 04/17/22 (delayed charting seen at 0830) Patient is a 61-year-old male with prior diabetes mellitus and ESRD status post renal and pancreatic transplant on chronic prednisone, mycophenolate, and tacrolimus, neuropathy, and multiple recent admissions were service. Patient's last admission records were reviewed. He was hospitalized 02/21/22 through 02/27/22 which resulted in diagnosis of newly discovered diastolic congestive heart failure with ejection fraction preserved at 50-55%, difficult to treat left foot osteomyelitis, and newly discovered atrial fibrillation with rapid ventricular response. He presented to the ER on 03/17/22 with complaints of left ankle pain after he twisted his ankle the day prior to admission. On arrival to the ER his vital signs were within normal limits. Lab urinalysis was remarkable for a white blood cell count of 20.1, hemoglobin 9.5, platelets 472, INR 1.4, sodium 121, BUN 28, and creatinine 1.28. In the ER he underwent an x-ray which showed acute fractures of the distal fibula with posterior angulation and tibia medial malleolus along with Charcot arthropathy. He was started on IV fluids and arrangements were made for admission. He was continued on IVF. Nephrology was conuslted. His sodium improved. Patient seen and examined at bedside. He is having pain in the ankle but is well controlled with the current pain medications. He denies any chest pain or shortness of breath. General: nontoxic, no distress, appears at stated age, gaunt Derm: warm, dry Head: atraumatic, normocephalic, symmetric Eyes: EOMI, no lid lag, anicteric sclera Mouth: no lip lesion, mucus membranes moist Cardiovascular: S1S2 reg, no murmur, positive posterior tibial pulse bilateral, Lungs: CTA bilateral, no rhonchi, no rales , no accessory muscle use Abdominal: soft, nontender to palpation, no guarding, no appreciable organomegaly Ext: no gross muscle atrophy, no edema, no contractures, left lower extremity in splint Neuro: CN II-XI grossly intact, no focal neuro deficits Psych: Alert, oriented, appropriate affect Assessment/Plan: Left ankle fracture complicated by Charcot joint and peripheral neuropathy - pain control - Await orthopedic recommendation - eliquis on hold incase surgery is indicated. Anemia of chronic disease -Hemoglobin has dropped approximately 2 g last 2 months -Follow CBC -Check iron studies Hyponatremia Mildly elevated creatinine at 1.28 not diagnostic of acute kidney injury is creatinine elevation less than 0.3 with baseline at 1.1 Immunocompromised status secondary to pancreatic renal transplant - prednisone, tacrolimus, mycophenolate -nephrology recs appreciated -IV fluids - hold lasix Diastolic congestive heart failure with ejection fraction 50-55% Hypertension Paroxysmal Atrial fibrillation anticoagulated with this -Hydralazine, Coreg, nifedipine, - Lasix on hold -Eliquis on hold until seen by ortho incase requires surgery - monitor HR Prior diabetes with diabetic neuropathy - Follow blood sugars closely -A1C 5.6 Dyslipidemia -Lovastatin Recent prolonged Left foot osteomyelitis, currently off antibiotics awaiting home med rec to be completed. DVT prophylaxis: SCDs Discussed with: patient, nursing, Anticipated discharge date: pending clinical course Anticipated discharge place: pending clinical course A total of 15 minutes was spent on the care of this complex patient more than 50% of the time was spent in counseling and care coordination. Active Medications Acetaminophen (Acetaminophen Tab 325 Mg Tab) 650 mg PO Q6HR PRN PRN Reason: Mild Pain or Fever > 100.5 Hydrocodone Bitart/Acetaminophen (Hydrocodone/Apap 5-325mg 1 Each Tab) 1 each PO Q4HR PRN PRN Reason: Moderate Pain (Scale 4 to 6) Last Admin: 04/17/22 11:25 Dose: 1 each Aspirin (Aspirin 81 Mg) 81 mg PO DAILY COUNTS INCLUDE 234 BEDS AT THE [facility] Last Admin: 04/17/22 08:36 Dose: 81 mg Atorvastatin Calcium (Atorvastatin 10 Mg Tab) 10 mg PO HS COUNTS INCLUDE 234 BEDS AT THE [facility] Last Admin: 04/16/22 23:16 Dose: 10 mg Bisacodyl (Bisacodyl 5 Mg Tablet.Dr) 5 mg PO DAILY PRN PRN Reason: Constipation Brimonidine Tartrate (Brimonidine Tartrate 0.2% Drops 5 Ml Btl) 1 drops BOTH EYES BID COUNTS INCLUDE 234 BEDS AT THE [facility] Last Admin: 04/17/22 08:37 Dose: 1 drops Carvedilol (Carvedilol 6.25 Mg Tab) 6.25 mg PO BID COUNTS INCLUDE 234 BEDS AT THE [facility] Last Admin: 04/17/22 08:36 Dose: 6.25 mg Dorzolamide HCl (Dorzolamide Hcl 2% Drops 10 Ml Btl) 1 drops LEFT EYE BID COUNTS INCLUDE 234 BEDS AT THE [facility] Last Admin: 04/17/22 08:37 Dose: 1 drops Gabapentin (Gabapentin 300 Mg Cap) 300 mg PO HS COUNTS INCLUDE 234 BEDS AT THE [facility] Last Admin: 04/16/22 23:16 Dose: 300 mg Hydralazine HCl (Hydralazine Hcl 25 Mg Tab) 25 mg PO TID COUNTS INCLUDE 234 BEDS AT THE [facility] Last Admin: 04/17/22 08:36 Dose: 25 mg Sodium Chloride (Saline 0.9%) 1,000 mls @ 50 mls/hr IV .Q20H COUNTS INCLUDE 234 BEDS AT THE [facility] Last Admin: 04/17/22 11:28 Dose: 50 mls/hr Latanoprost (Latanoprost 0.005% Ophth Drops 2.5 Ml Btl) 1 drops RIGHT EYE HS COUNTS INCLUDE 234 BEDS AT THE [facility] Last Admin: 04/16/22 23:34 Dose: 1 drops Melatonin (Melatonin 3 Mg Tablet) 3 mg PO HS PRN PRN Reason: Insomnia Last Admin: 04/16/22 20:29 Dose: 3 mg Morphine Sulfate (Morphine Sulfate 4 Mg/Ml Syringe) 4 mg IVP Q4HR PRN PRN Reason: Severe Pain (Scale 7 to 10) Last Admin: 04/17/22 06:52 Dose: 4 mg Mycophenolate Mofetil (Mycophenolate Mofetil 500 Mg Tab) 500 mg PO BID COUNTS INCLUDE 234 BEDS AT THE [facility] Last Admin: 04/17/22 08:36 Dose: 500 mg Naloxone HCl (Naloxone 0.4 Mg/Ml 1 Ml Vial) 0.2 mg IV Q2M PRN PRN Reason: Opioid Reversal Nifedipine (Nifedipine Xl 60 Mg Tab.Er.24) 60 mg PO BID COUNTS INCLUDE 234 BEDS AT THE [facility] Last Admin: 04/17/22 08:36 Dose: 60 mg Ondansetron HCl (Ondansetron 4 Mg/2 Ml Vial) 4 mg IVP Q8HR PRN PRN Reason: Nausea And Vomiting Pantoprazole Sodium (Pantoprazole 40 Mg Tablet) 40 mg PO AC-BRKFST COUNTS INCLUDE 234 BEDS AT THE [facility] Last Admin: 04/17/22 08:36 Dose: 40 mg Prednisone (Prednisone 5 Mg Tab) 5 mg PO DAILY COUNTS INCLUDE 234 BEDS AT THE [facility] Last Admin: 04/17/22 08:36 Dose: 5 mg Tacrolimus (Tacrolimus 1 Mg Cap) 1 mg PO BID COUNTS INCLUDE 234 BEDS AT THE [facility] Last Admin: 04/17/22 08:36 Dose: 1 mg Timolol Maleate (Timolol 0.5% Ophth Drops 5 Ml Btl) 1 drops BOTH EYES BID COUNTS INCLUDE 234 BEDS AT THE [facility] Last Admin: 04/17/22 11:28 Dose: 1 drops Objective - Vital Signs Vital signs: Vital Signs Temp 97.9 F 04/17/22 05:35 Pulse 74 04/17/22 05:35 Resp 16 04/17/22 05:35 BP 116/48 04/17/22 05:35 Pulse Ox 95 04/17/22 05:35 FiO2 Intake & Output 04/16/22 04/17/22 04/17/22 18:59 06:59 18:59 Intake Total 1175 Output Total 0 0 Balance 1175 0 Weight 54.431 kg Intake: Intake, IV Titration 1175 Amount Sodium Chloride 0.9% 1, 675 000 ml @ 75 mls/hr IV . [id number] STA Rx#:[id number] Sodium Chloride 0.9% 500 500 ml @ 999 mls/hr IV .Q31M STA Rx#:[id number] Output: Stool 0 0 Other: Voiding Method Urinal Urinal - Labs CBC & Chem 7: 04/17/22 05:28 04/17/22 05:28 Labs: Abnormal Lab Results - Last 24 Hours (Table) 04/16/22 04/16/22 04/16/22 Range/Units 15:29 15:29 15:29 WBC 20.1 H (3.8-10.6) k/uL RBC 3.36 L (4.30-5.90) m/uL Hgb 9.5 L D (13.0-17.5) gm/dL Hct 27.2 L (39.0-53.0) % Plt Count 472 H (150-450) k/uL Neutrophils # 17.9 H (1.3-7.7) k/uL Lymphocytes # 0.7 L (1.0-4.8) k/uL PT 14.0 H (9.0-12.0) sec INR 1.4 H (<1.2) APTT 42.7 H (22.0-30.0) sec Sodium 121 L (137-145) mmol/L Chloride 86 L (98-107) mmol/L BUN 42 H (9-20) mg/dL Creatinine 1.28 H (0.66-1.25) mg/dL BUN/Creatinine Ratio (12.00-20.00) Ratio Glucose 140 H (74-99) mg/dL Calcium 8.2 L (8.4-10.2) mg/dL Iron (65-175) ug/dL TIBC (228-460) ug/dL Transferrin (204.0-354.0) mg/dL Ferritin (22.0-322.0) ng/mL AST 80 H (17-59) U/L Albumin 3.2 L (3.5-5.0) g/dL 04/17/22 04/17/22 Range/Units 05:28 05:28 WBC 15.7 H (3.8-10.6) k/uL RBC 3.01 L (4.30-5.90) m/uL Hgb 8.4 L (13.0-17.5) gm/dL Hct 25.0 L (39.0-53.0) % Plt Count 452 H (150-450) k/uL Neutrophils # (1.3-7.7) k/uL Lymphocytes # (1.0-4.8) k/uL PT (9.0-12.0) sec INR (<1.2) APTT (22.0-30.0) sec Sodium 126 L (137-145) mmol/L Chloride 90 L (98-107) mmol/L BUN 37.5 H (9-20) mg/dL Creatinine (0.66-1.25) mg/dL BUN/Creatinine Ratio 32.61 H (12.00-20.00) Ratio Glucose (74-99) mg/dL Calcium 8.2 L (8.4-10.2) mg/dL Iron 23 L (65-175) ug/dL TIBC 141 L (228-460) ug/dL Transferrin 101.0 L (204.0-354.0) mg/dL Ferritin 1200.0 H (22.0-322.0) ng/mL AST (17-59) U/L Albumin (3.5-5.0) g/dL
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
[2022-04-17] MEDS: ATORVASTATIN 10 MG TAB PO SCH (21:28)
[2022-04-17] MEDS: GABAPENTIN 300 MG CAP PO SCH (21:28)
[2022-04-17] MEDS: LATANOPROST 0.005% OPHTH DROPS 2.5 ML BTL RIGHT EYE SCH (21:28)
[2022-04-17] MEDS: bisacodyL 5 MG TABLET.DR PO PRN (21:37)
[2022-04-18] MEDS: SODIUM CHLORIDE 0.9% 1,000 ML IV SCH ×2 (06:15→20:05)
[2022-04-18] MEDS: HYDROcodone/APAP 5-325MG 1 EACH TAB PO PRN ×2 (07:16→19:59)
[2022-04-18] MEDS: PANTOPRAZOLE 40 MG TABLET PO SCH (08:19)
[2022-04-18] MEDS: hydrALAZINE HCL 25 MG TAB PO SCH ×3 (08:19→21:51)
[2022-04-18] MEDS: ASPIRIN 81 MG PO SCH (08:19)
[2022-04-18] MEDS: BRIMONIDINE TARTRATE 0.2% DROPS 5 ML BTL BOTH EYES SCH ×2 (08:19→20:00)
[2022-04-18] MEDS: carvediloL 6.25 MG TAB PO SCH ×2 (08:19→19:59)
[2022-04-18] MEDS: DORZOLAMIDE HCL 2% DROPS 10 ML BTL LEFT EYE SCH ×2 (08:20→20:00)
[2022-04-18] MEDS: predniSONE 5 MG TAB PO SCH (08:21)
[2022-04-18] MEDS: TACROLIMUS 1 MG CAP PO SCH ×2 (08:21→20:00)
[2022-04-18] MEDS: TIMOLOL 0.5% OPHTH DROPS 5 ML BTL BOTH EYES SCH ×2 (08:22→20:01)
[2022-04-18 09:09] LABS: HCT 26.1 % (39.6-50.0); HGB 8.9 g/dL (13.0-17.0); MCHC 34.1 g/dL (32.0-37.0); MCV 82.1 fL (80.0-97.0); Mean Platelet Volume 9.3 fL (9.5-12.2); NRBC Per 100 WBC 0 /100 WBCS (0.0-0.0); Platelet Count 561 X 10*3/uL (140-440); RBC 3.18 X 10*6/uL (4.40-5.60); WBC 17.16 X 10*3/uL (4.50-10.00)
[2022-04-18 09:11] LABS: Anion Gap 12.7 mmol/L (10.00-18.00); BUN/Creat Ratio 29.56 Ratio (12.00-20.00); Blood Urea Nitrogen 26.6 mg/dL (9.0-27.0); Calcium 8.2 mg/dL (8.7-10.3); Carbon Dioxide 24.3 mmol/L (20.0-27.5); Non-African American GFR(CKD) 93.2 (60.0-200.0); Potassium 3.9 mmol/L (3.5-5.5)
[2022-04-18] MEDS ORDERED: SODIUM FERRIC GLUCONAT-SUCROSE 125 MG in SODIUM CHLORIDE 0.9% 100 ML IVPB ONE (10:23)
--- NOTE | 2022-04-18 11:21 | P.PN ---
Subjective Progress Note Date: 04/18/22 Patient is a 61-year-old male with prior diabetes mellitus and ESRD status post renal and pancreatic transplant on chronic prednisone, mycophenolate, and tacrolimus, neuropathy, and multiple recent admissions were service. Patient's last admission records were reviewed. He was hospitalized 02/21/22 through 02/27/22 which resulted in diagnosis of newly discovered diastolic congestive heart failure with ejection fraction preserved at 50-55%, difficult to treat left foot osteomyelitis, and newly discovered atrial fibrillation with rapid ventricular response. He presented to the ER on 03/17/22 with complaints of left ankle pain after he twisted his ankle the day prior to admission. On arrival to the ER his vital signs were within normal limits. Lab urinalysis was remarkable for a white blood cell count of 20.1, hemoglobin 9.5, platelets 472, INR 1.4, sodium 121, BUN 28, and creatinine 1.28. In the ER he underwent an x-ray which showed acute fractures of the distal fibula with posterior angulation and tibia medial malleolus along with Charcot arthropathy. He was started on IV fluids and arrangements were made for admission. He was continued on IVF. Nephrology was consulted. His sodium improved. Orthopedic surgery who recommended nonweightbearing to the left lower extremity as well as a splint. No operative plans at this time. Patient seen and examined at bedside. He does state it was somewhat difficult to get to the chair today, he is concerned about going home but does not want to go to rehab. Pain is well controlled. He is eating and drinking well. General: nontoxic, no distress, appears at stated age, gaunt Derm: warm, dry Head: atraumatic, normocephalic, symmetric Eyes: EOMI, no lid lag, anicteric sclera Mouth: no lip lesion, mucus membranes moist Cardiovascular: S1S2 reg, no murmur, positive posterior tibial pulse bilateral, Lungs: CTA bilateral, no rhonchi, no rales , no accessory muscle use Abdominal: soft, nontender to palpation, no guarding, no appreciable organomegaly Ext: no gross muscle atrophy, no edema, no contractures, left lower extremity in splint Neuro: CN II-XI grossly intact, no focal neuro deficits Psych: Alert, oriented, appropriate affect Assessment/Plan: Left ankle fracture complicated by Charcot joint and peripheral neuropathy - pain control - Ortho recs review: outpatient follow-up - eliquis on hold incase surgery is indicated. Anemia of chronic disease -Hemoglobin has dropped approximately 2 g last 2 months -Follow CBC Hyponatremia, improving Mildly elevated creatinine at 1.28 not diagnostic of acute kidney injury is creatinine elevation less than 0.3 with baseline at 1.1 Immunocompromised status secondary to pancreatic renal transplant - prednisone, tacrolimus, mycophenolate -nephrology recs appreciated - stop IV fluids - hold lasix Diastolic congestive heart failure with ejection fraction 50-55% Hypertension Paroxysmal Atrial fibrillation anticoagulated with this -Hydralazine, Coreg, nifedipine, - Lasix on hold. likely home off lasix or with decreased dosing. - Eliquis on hold until seen by ortho incase requires surgery - monitor HR Prior diabetes with diabetic neuropathy - Follow blood sugars closely - A1C 5.6 Dyslipidemia -Lovastatin Recent prolonged Left foot osteomyelitis, currently off antibiotics awaiting home med rec to be completed. D/W PT/OT and they will trial the patient with knee scooter in AM to see if he as enough balance to use this at home. DVT prophylaxis: SCDs Discussed with: patient, nursing, Anticipated discharge date: in AM Anticipated discharge place: HH vs SNF A total of 25 minutes was spent on the care of this complex patient more than 5 0% of the time was spent in counseling and care coordination. Active Medications Generic Name Dose Route Start Last Admin Trade Name Freq PRN Reason Stop Dose Admin Acetaminophen 650 mg 04/16/22 17:40 Acetaminophen Tab 325 Mg Tab PO Q6HR PRN Mild Pain or Fever > 100.5 Hydrocodone Bitart/Acetaminophen 1 each 04/16/22 17:40 04/18/22 07:16 Hydrocodone/Apap 5-325mg 1 Each Tab PO 1 each Q4HR PRN Administration Moderate Pain (Scale 4 to 6) Aspirin 81 mg 04/17/22 09:00 04/18/22 08:19 Aspirin 81 Mg PO 81 mg DAILY MARYLIN Administration Atorvastatin Calcium 10 mg 04/16/22 22:45 04/17/22 21:28 Atorvastatin 10 Mg Tab PO 10 mg HS MARYLIN Administration Bisacodyl 5 mg 04/16/22 17:40 04/17/22 21:37 Bisacodyl 5 Mg Tablet.Dr PO 5 mg DAILY PRN Administration Constipation Brimonidine Tartrate 1 drops 04/16/22 22:45 04/18/22 08:19 Brimonidine Tartrate 0.2% Drops 5 Ml Btl BOTH EYES 1 drops BID MARYLIN Administration Carvedilol 6.25 mg 04/17/22 09:00 04/18/22 08:19 Carvedilol 6.25 Mg Tab PO 6.25 mg BID MARYLIN Administration Darbepoetin Eitan 40 mcg 04/18/22 12:00 Darbepoetin Eitan 40 Mcg/0.4 Ml Syringe SQ Q7D MARYLIN Dorzolamide HCl 1 drops 04/16/22 22:45 04/18/22 08:20 Dorzolamide Hcl 2% Drops 10 Ml Btl LEFT EYE 1 drops BID MARYLIN Administration Gabapentin 300 mg 04/16/22 22:45 04/17/22 21:28 Gabapentin 300 Mg Cap PO 300 mg HS MARYLIN Administration Hydralazine HCl 25 mg 04/16/22 22:45 04/18/22 08:19 Hydralazine Hcl 25 Mg Tab PO 25 mg TID MARYLIN Administration Sodium Chloride 1,000 mls @ 50 mls/hr 04/17/22 10:30 04/18/22 06:15 Saline 0.9% IV 50 mls/hr .Q20H MARYLIN Administration Ferric Sodium Gluconate 125 mg 110 mls @ 100 mls/hr 04/18/22 10:23 / Sodium Chloride IVPB 04/18/22 11:28 ONCE ONE Latanoprost 1 drops 04/16/22 22:45 04/17/22 21:28 Latanoprost 0.005% Ophth Drops 2.5 Ml Btl RIGHT EYE 1 drops HS MARYLIN Administration Melatonin 3 mg 04/16/22 17:40 04/16/22 20:29 Melatonin 3 Mg Tablet PO 3 mg HS PRN Administration Insomnia Morphine Sulfate 4 mg 04/16/22 17:40 04/17/22 06:52 Morphine Sulfate 4 Mg/Ml Syringe IVP 4 mg Q4HR PRN Administration Severe Pain (Scale 7 to 10) Mycophenolate Mofetil 500 mg 04/16/22 22:45 04/18/22 08:20 Mycophenolate Mofetil 500 Mg Tab PO 500 mg BID MARYLIN Administration Naloxone HCl 0.2 mg 04/16/22 17:08 Naloxone 0.4 Mg/Ml 1 Ml Vial IV Q2M PRN Opioid Reversal Nifedipine 60 mg 04/17/22 09:00 04/18/22 08:20 Nifedipine Xl 60 Mg Tab.Er.24 PO 60 mg BID MARYLIN Administration Ondansetron HCl 4 mg 04/16/22 17:08 Ondansetron 4 Mg/2 Ml Vial IVP Q8HR PRN Nausea And Vomiting Pantoprazole Sodium 40 mg 04/17/22 07:30 04/18/22 08:19 Pantoprazole 40 Mg Tablet PO 40 mg AC-BRKFST MARYLIN Administration Prednisone 5 mg 04/17/22 09:00 04/18/22 08:21 Prednisone 5 Mg Tab PO 5 mg DAILY MARYLIN Administration Tacrolimus 1 mg 04/16/22 22:45 04/18/22 08:21 Tacrolimus 1 Mg Cap PO 1 mg BID MARYLIN Administration Timolol Maleate 1 drops 04/16/22 23:00 04/18/22 08:22 Timolol 0.5% Ophth Drops 5 Ml Btl BOTH EYES 1 drops BID MARYLIN Administration Objective - Vital Signs Vital signs: Vital Signs Temp 99.6 F 04/18/22 04:55 Pulse 86 04/18/22 04:55 Resp 16 04/18/22 04:55 BP 122/52 04/18/22 04:55 Pulse Ox 90 L 04/18/22 04:55 FiO2 Intake & Output 04/17/22 04/18/22 04/18/22 18:59 06:59 18:59 Output Total 450 600 Balance -450 -600 Output: Urine 450 600 Stool 0 Other: Voiding Method Urinal Urinal - Labs CBC & Chem 7: 04/18/22 05:30 04/18/22 05:30 Labs: Abnormal Lab Results - Last 24 Hours (Table) 04/17/22 04/18/22 04/18/22 Range/Units 10:43 05:30 05:30 WBC 17.16 H (4.50-10.00) X 10*3/uL RBC 3.18 L (4.40-5.60) X 10*6/uL Hgb 8.9 L (13.0-17.0) g/dL Hct 26.1 L (39.6-50.0) % RDW 15.0 H (11.5-14.5) % Plt Count 561 H (140-440) X 10*3/uL MPV 9.3 L (9.5-12.2) fL Sodium 129 L (135-145) mmol/L Chloride 92 L (96-109) mmol/L BUN/Creatinine Ratio 29.56 H (12.00-20.00) Ratio Calcium 8.2 L (8.7-10.3) mg/dL Ur Random Sodium <20 L (40-220) mmol/L
--- NOTE | 2022-04-18 12:32 | P.PN ---
Subjective Patient is seen for follow-up for hyponatremia. Currently improving with normal saline.. No plans for immediate surgical intervention from orthopedic standpoint for left ankle fracture No significant complaints today Objective - Vital Signs Vital signs: Vital Signs Temp 98.9 F 04/18/22 11:05 Pulse 82 04/18/22 11:05 Resp 16 04/18/22 11:05 BP 120/52 04/18/22 11:05 Pulse Ox 93 L 04/18/22 11:05 FiO2 Intake & Output 04/17/22 04/18/22 04/18/22 18:59 06:59 18:59 Output Total 450 600 Balance -450 -600 Output: Urine 450 600 Stool 0 Other: Voiding Method Urinal Urinal - Exam Awake, comfortable, in no acute distress Alert oriented 3 Examination of the heart S1 and S2 Examination of the lungs bilateral breath sounds are heard Abdomen is soft nontender Examination of the lower extremities shows left leg in splint. No edema on the right leg [employer] exam grossly intact - Labs CBC & Chem 7: 04/18/22 05:30 04/18/22 05:30 Labs: Abnormal Lab Results - Last 24 Hours (Table) 04/17/22 04/18/22 04/18/22 Range/Units 10:43 05:30 05:30 WBC 17.16 H (4.50-10.00) X 10*3/uL RBC 3.18 L (4.40-5.60) X 10*6/uL Hgb 8.9 L (13.0-17.0) g/dL Hct 26.1 L (39.6-50.0) % RDW 15.0 H (11.5-14.5) % Plt Count 561 H (140-440) X 10*3/uL MPV 9.3 L (9.5-12.2) fL Sodium 129 L (135-145) mmol/L Chloride 92 L (96-109) mmol/L BUN/Creatinine Ratio 29.56 H (12.00-20.00) Ratio Calcium 8.2 L (8.7-10.3) mg/dL Ur Random Sodium <20 L (40-220) mmol/L Assessment and Plan Assessment: 1. Acute kidney injury, acute allograft dysfunction mostly prerenal currently improved with IV hydration 2. Status post simultaneous kidney pancreas transplant in 1997 at [facility] maintained on CellCept and Prograf along with prednisone 5 mg daily. Patient had elevated level of tacrolimus at 9.7 on 02/22/2022. Repeat level will be ordered. 3. Hyponatremia, hypovolemic improved normal saline. Continue to hold Lasix and continue with saline cautiously 4. Recent diagnosis of diastolic CHF with ejection fraction 50-55% 5. Paroxysmal A. fib maintained on eliquis, rate controlled 6. Hypertension currently controlled 7. Left ankle fracture Plan: Continue with saline and repeat labs in a.m. Follow-up on tacrolimus level Continue current dose off immunosuppressants for now IV iron 1 Add Aranesp
[2022-04-18] MEDS: DARBEPOETIN ALFA 40 MCG/0.4 ML SYRINGE SQ SCH (13:43)
[2022-04-18 13:58] VITALS: BMI 18.8
[2022-04-18] MEDS: GABAPENTIN 300 MG CAP PO SCH (19:59)
[2022-04-18] MEDS: ATORVASTATIN 10 MG TAB PO SCH (19:59)
[2022-04-18] MEDS: LATANOPROST 0.005% OPHTH DROPS 2.5 ML BTL RIGHT EYE SCH (20:00)
[2022-04-18] MEDS: bisacodyL 5 MG TABLET.DR PO PRN (20:03)
[2022-04-19 06:49] LABS: HCT 26.3 % (39.0-53.0); HGB 8.9 gm/dL (13.0-17.5); Hypochromasia Slight; MCH 29.2 pg (25.0-35.0); MCHC 33.8 g/dL (31.0-37.0); MCV 86.2 fL (80.0-100.0); Mean Platelet Volume 7.5; Platelet Count 572 k/uL (150-450); RBC 3.05 m/uL (4.30-5.90); RDW 15.5 % (11.5-15.5); WBC 14.7 k/uL (3.8-10.6)
[2022-04-19 06:58] LABS: African American GFR (CKD) >90 (>60 ml/min/1.73 sqM); Anion Gap 7 mmol/L; Blood Urea Nitrogen 21 mg/dL (9-20); Calcium 7.7 mg/dL (8.4-10.2); Carbon Dioxide 25 mmol/L (22-30); Chloride 97 mmol/L (98-107); Glucose 87 mg/dL (74-99); Non-African American GFR(CKD) >90 (>60 ml/min/1.73 sqM); Potassium 3.9 mmol/L (3.5-5.1); Sodium 129 mmol/L (137-145)
[2022-04-19] MEDS ORDERED: SODIUM CHLORIDE TAB 1 GM TAB PO STA (08:54)
--- NOTE | 2022-04-19 09:10 | XR ---
EXAMINATION TYPE: XR chest 2V DATE OF EXAM: 04/19/2022 COMPARISON: 04/11/2022 TECHNIQUE: PA and lateral views submitted. HISTORY: Cough FINDINGS: Diffuse osteopenia with arthropathy of the shoulder. Mediport catheter seen in the heart size is prom inent. Chronic rib cage deformities are seen. Sclerotic lesion involving the right humerus likely rel ated to bone infarct. Underlying COPD suspected. Degenerative changes spine. Subsegmental changes at the lung bases. Tiny pleural effusions suspected. IMPRESSION: 1. COPD with basilar atelectasis or early infiltrate with tiny pleural effusion.
[2022-04-19] MEDS: hydrALAZINE HCL 25 MG TAB PO SCH ×3 (09:21→22:40)
[2022-04-19] MEDS: PANTOPRAZOLE 40 MG TABLET PO SCH (09:21)
[2022-04-19] MEDS: carvediloL 6.25 MG TAB PO SCH ×2 (09:21→20:41)
[2022-04-19] MEDS: ASPIRIN 81 MG PO SCH (09:21)
[2022-04-19] MEDS: predniSONE 5 MG TAB PO SCH (09:21)
[2022-04-19] MEDS: TACROLIMUS 1 MG CAP PO SCH ×2 (09:22→20:42)
[2022-04-19] MEDS: TIMOLOL 0.5% OPHTH DROPS 5 ML BTL BOTH EYES SCH ×2 (09:22→20:42)
[2022-04-19] MEDS: DORZOLAMIDE HCL 2% DROPS 10 ML BTL LEFT EYE SCH ×2 (09:23→20:41)
[2022-04-19] MEDS: BRIMONIDINE TARTRATE 0.2% DROPS 5 ML BTL BOTH EYES SCH ×2 (09:23→20:40)
--- NOTE | 2022-04-19 09:45 | P.PN ---
Subjective Progress Note Date: 04/19/22 Patient is a 61-year-old male with prior diabetes mellitus and ESRD status post renal and pancreatic transplant on chronic prednisone, mycophenolate, and tacrolimus, neuropathy, and multiple recent admissions were service. Patient's last admission records were reviewed. He was hospitalized 02/21/22 through 02/27/22 which resulted in diagnosis of newly discovered diastolic congestive heart failure with ejection fraction preserved at 50-55%, difficult to treat left foot osteomyelitis, and newly discovered atrial fibrillation with rapid ventricular response. He presented to the ER on 03/17/22 with complaints of left ankle pain after he twisted his ankle the day prior to admission. On arrival to the ER his vital signs were within normal limits. Lab urinalysis was remarkable for a white blood cell count of 20.1, hemoglobin 9.5, platelets 472, INR 1.4, sodium 121, BUN 28, and creatinine 1.28. In the ER he underwent an x-ray which showed acute fractures of the distal fibula with posterior angulation and tibia medial malleolus along with Charcot arthropathy. He was started on IV fluids and arrangements were made for admission. He was continued on IVF. Nephrology was consulted. His sodium improved. Orthopedic surgery who recommended nonweightbearing to the left lower extremity as well as a splint. No operative plans at this time. He spiked a fever on 04/18. Patient seen and examined at bedside. He reports that he has a slight cough yesterday, it is resolved today. He had denies any dysuria. He denies any diarrhea. He complains of being fatigued and having people interrupt his room multiple times. He states that last week he was tested his primary care p hysician's for flu" with though it is unclear why. General: ill appearing, no distress, appears at stated age, gaunt Derm: warm, dry Head: atraumatic, normocephalic, symmetric Eyes: EOMI, no lid lag, anicteric sclera Mouth: no lip lesion, mucus membranes moist Cardiovascular: S1S2 reg, no murmur, positive posterior tibial pulse bilateral, Lungs: Decreased bs bilateral, no rhonchi, no rales , no accessory muscle use Abdominal: soft, nontender to palpation, no guarding, no appreciable organome ced Ext: no gross muscle atrophy, no edema, no contractures, left lower extremity in splint Neuro: CN II-XI grossly intact, no focal neuro deficits Psych: Alert, oriented, appropriate affect Assessment/Plan: Left ankle fracture complicated by Charcot joint and peripheral neuropathy - continue with splint and non weight bearing. - pain control - Ortho recs review: outpatient follow-up - eliquis on hold incase surgery is indicated. - he refuses rehab Pyrexia in the setting of immunospuression and recent chronic osteomyelitis, off abx for 6 weeks - check Covid, Flu, and RSV - CXR ordered and reviewed by myself no interstitial infiltrate, chronic changes - check blood cultures - consult ID Anemia of chronic disease -Hemoglobin has dropped approximately 2 g last 2 months -IV iron X1 per nephrology -Follow CBC Hyponatremia,stable Mildly elevated creatinine at 1.28 not diagnostic of acute kidney injury is creatinine elevation less than 0.3 with baseline at 1.1 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 An and off IV fluids, Sodium tablets. - prednisone, tacrolimus, mycophenolate -nephrology recs appreciated - hold lasix Diastolic congestive heart failure with ejection fraction 50-55% Hypertension Paroxysmal Atrial fibrillation anticoagulated with this - meds reviewed - Lasix on hold. likely home off lasix or with decreased dosing. - resume eliquis - monitor HR Prior diabetes with diabetic neuropathy - Follow blood sugars closely - A1C 5.6 Dyslipidemia -Lovastatin Recent prolonged Left foot osteomyelitis, currently off antibiotics awaiting home med rec to be completed. D/W PT/OT and they will trial the patient with knee scooter in AM to see if he as enough balance to use this at home. DVT prophylaxis: SCDs Discussed with: patient, nursing, Anticipated discharge date: in AM Anticipated discharge place: HH vs SNF A total of 25 minutes was spent on the care of this complex patient more than 50% of the time was spent in counseling and care coordination. Active Medications Generic Name Dose Route Start Last Admin Trade Name Freq PRN Reason Stop Dose Admin Acetaminophen 650 mg 04/16/22 17:40 Acetaminophen Tab 325 Mg Tab PO Q6HR PRN Mild Pain or Fever > 100.5 Hydrocodone Bitart/Acetaminophen 1 each 04/16/22 17:40 04/18/22 19:59 Hydrocodone/Apap 5-325mg 1 Each Tab PO 1 each Q4HR PRN Administration Moderate Pain (Scale 4 to 6) Aspirin 81 mg 04/17/22 09:00 04/19/22 09:21 Aspirin 81 Mg PO 81 mg DAILY MARYLIN Administration Atorvastatin Calcium 10 mg 04/16/22 22:45 04/18/22 19:59 Atorvastatin 10 Mg Tab PO 10 mg HS MARYLIN Administration Bisacodyl 5 mg 04/16/22 17:40 04/18/22 20:03 Bisacodyl 5 Mg Tablet.Dr PO 5 mg DAILY PRN Administration Constipation Brimonidine Tartrate 1 drops 04/16/22 22:45 04/19/22 09:23 Brimonidine Tartrate 0.2% Drops 5 Ml Btl BOTH EYES 1 drops BID MARYLIN Administration Carvedilol 6.25 mg 04/17/22 09:00 04/19/22 09:21 Carvedilol 6.25 Mg Tab PO 6.25 mg BID MARYLIN Administration Darbepoetin Eitan 40 mcg 04/18/22 12:00 04/18/22 13:43 Darbepoetin Eitan 40 Mcg/0.4 Ml Syringe SQ 40 mcg Q7D MARYLIN Administration Dorzolamide HCl 1 drops 04/16/22 22:45 04/19/22 09:23 Dorzolamide Hcl 2% Drops 10 Ml Btl LEFT EYE 1 drops BID MARYLIN Administration Gabapentin 300 mg 04/16/22 22:45 04/18/22 19:59 Gabapentin 300 Mg Cap PO 300 mg HS MARYLIN Administration Hydralazine HCl 25 mg 04/16/22 22:45 04/19/22 09:21 Hydralazine Hcl 25 Mg Tab PO 25 mg TID MARYLIN Administration Latanoprost 1 drops 04/16/22 22:45 04/18/22 20:00 Latanoprost 0.005% Ophth Drops 2.5 Ml Btl RIGHT EYE 1 drops HS MARYLIN Administration Melatonin 3 mg 04/16/22 17:40 04/16/22 20:29 Melatonin 3 Mg Tablet PO 3 mg HS PRN Administration Insomnia Morphine Sulfate 4 mg 04/16/22 17:40 04/17/22 06:52 Morphine Sulfate 4 Mg/Ml Syringe IVP 4 mg Q4HR PRN Administration Severe Pain (Scale 7 to 10) Mycophenolate Mofetil 500 mg 04/16/22 22:45 04/19/22 09:21 Mycophenolate Mofetil 500 Mg Tab PO 500 mg BID MARYLIN Administration Naloxone HCl 0.2 mg 04/16/22 17:08 Naloxone 0.4 Mg/Ml 1 Ml Vial IV Q2M PRN Opioid Reversal Nifedipine 60 mg 04/17/22 09:00 04/19/22 09:21 Nifedipine Xl 60 Mg Tab.Er.24 PO 60 mg BID MARYLIN Administration Ondansetron HCl 4 mg 04/16/22 17:08 Ondansetron 4 Mg/2 Ml Vial IVP Q8HR PRN Nausea And Vomiting Pantoprazole Sodium 40 mg 04/17/22 07:30 04/19/22 09:21 Pantoprazole 40 Mg Tablet PO 40 mg AC-BRKFST MARYLIN Administration Prednisone 5 mg 04/17/22 09:00 04/19/22 09:21 Prednisone 5 Mg Tab PO 5 mg DAILY MARYLIN Administration Tacrolimus 1 mg 04/16/22 22:45 04/19/22 09:22 Tacrolimus 1 Mg Cap PO 1 mg BID MARYLIN Administration Timolol Maleate 1 drops 04/16/22 23:00 04/19/22 09:22 Timolol 0.5% Ophth Drops 5 Ml Btl BOTH EYES 1 drops BID MARYLIN Administration Objective - Vital Signs Vital signs: Vital Signs Temp 98.5 F 04/19/22 09:09 Pulse 104 H 04/19/22 09:09 Resp 16 04/19/22 05:00 BP 136/65 04/19/22 09:09 Pulse Ox 92 L 04/19/22 09:09 FiO2 Intake & Output 04/18/22 04/19/22 04/19/22 18:59 06:59 18:59 Output Total 300 300 Balance -300 -300 Weight 54.431 kg Output: Urine 300 300 Other: Voiding Method Urinal # Voids 3 # Bowel Movements 0 - Labs CBC & Chem 7: 04/19/22 06:03 04/19/22 06:03 Labs: Abnormal Lab Results - Last 24 Hours (Table) 04/17/22 04/19/22 04/19/22 Range/Units 05:28 06:03 06:03 WBC 14.7 H (3.8-10.6) k/uL RBC 3.05 L (4.30-5.90) m/uL Hgb 8.9 L (13.0-17.5) gm/dL Hct 26.3 L (39.0-53.0) % Plt Count 572 H (150-450) k/uL Sodium 129 L (137-145) mmol/L Chloride 97 L (98-107) mmol/L BUN 21 H (9-20) mg/dL Calcium 7.7 L (8.4-10.2) mg/dL RBC Folate 1,278 H (280 - 791) ng/mL
--- NOTE | 2022-04-19 10:31 | P.PN ---
Subjective Patient is seen for follow-up for hyponatremia. Improved with normal saline No plans for immediate surgical intervention from orthopedic standpoint for left ankle fracture Patient had a fever yesterday at 10 1F and this morning again at 100.3 No urinary symptoms No complaints of cough Continues to have pain in his left foot at the site of fracture and previous osteomyelitis Objective - Vital Signs Vital signs: Vital Signs Temp 98.5 F 04/19/22 09:09 Pulse 104 H 04/19/22 09:09 Resp 16 04/19/22 05:00 BP 136/65 04/19/22 09:09 Pulse Ox 92 L 04/19/22 09:09 FiO2 Intake & Output 04/18/22 04/19/22 04/19/22 18:59 06:59 18:59 Output Total 300 300 Balance -300 -300 Weight 54.431 kg Output: Urine 300 300 Other: Voiding Method Urinal Urinal # Voids 3 # Bowel Movements 0 - Exam Awake, comfortable, in no acute distress Alert oriented 3 Examination of the heart S1 and S2 Examination of the lungs bilateral breath sounds are heard Abdomen is soft nontender Examination of the lower extremities shows left leg in splint. 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 Acute kidney injury, acute allograft dysfunction mostly prerenal currently improved with IV hydration 2. Status post simultaneous kidney pancreas transplant in 1997 at [facility] maintained on CellCept and Prograf along with prednisone 5 mg daily. Patient had elevated level of tacrolimus at 9.7 on 02/22/2022. Repeat level will be ordered. 3. Hyponatremia, hypovolemic improved normal saline. Continue to hold Lasix, status post saline 4. Recent diagnosis of diastolic CHF with ejection fraction 50-55% 5. Paroxysmal A. fib maintained on eliquis, rate controlled 6. Hypertension currently controlled 7. Left ankle fracture 8. New fever currently being worked up. Plan: DC saline Sodium chloride tab 1 Follow-up on tacrolimus level Continue current dose off immunosuppressants for now Continue Aranesp Empiric antibiotics and workup for fever. ID has been consulted
[2022-04-19] MEDS: HYDROcodone/APAP 5-325MG 1 EACH TAB PO PRN (10:51)
[2022-04-19 13:45] LABS: Appearance,Urine Clear (Clear); Bilirubin,Urine Negative (Negative); Blood,Urine Negative (Negative); Color,Urine Yellow; Glucose,Urine (UA) Negative (Negative); Ketones,Urine Negative (Negative); Leukocyte Esterase,Urine Negative (Negative); Nitrite,Urine Negative (Negative); PH, Urine 5.5 (5.0-8.0); Protein,Urine Trace (Negative); Specific Gravity,Urine 1.016 (1.001-1.035); Urobilinogen,Urine <2.0 mg/dL (<2.0)
--- NOTE | 2022-04-19 15:32 | P.PN ---
Subjective Progress Note Date: 04/18/22 Principal diagnosis: Left ankle debbie fracture Patient seen at bedside today. We are following him for left debbie ankle fracture. He took down part of his bulky padded splint that was applied yesterday, stating it was too heavy. He has no new complaints. No new numbness, calf pain, fever chills or other. Objective - Vital Signs Vital signs: Vital Signs Temp 101 F H 04/18/22 19:50 Pulse 91 04/18/22 19:50 Resp 16 04/18/22 19:50 BP 149/68 04/18/22 19:50 Pulse Ox 93 L 04/18/22 19:50 FiO2 Intake & Output 04/18/22 04/18/22 04/19/22 06:59 18:59 06:59 Output Total 600 300 Balance -600 -300 Weight 54.431 kg Output: Urine 600 300 Other: Voiding Method Urinal Urinal # Voids 3 # Bowel Movements 0 - Exam Inspection shows stirrup splint portion has been removed and half the SLY bandage. No new deformity or wounds apparent. Neurovascular status is baseline with motor sensation and cap refill. - Constitutional General appearance: Present: no acute distress - Labs CBC & Chem 7: 04/19/22 06:03 04/19/22 06:03 Labs: Abnormal Lab Results - Last 24 Hours (Table) 04/17/22 04/18/22 04/18/22 Range/Units 05:28 05:30 05:30 WBC 17.16 H (4.50-10.00) X 10*3/uL RBC 3.18 L (4.40-5.60) X 10*6/uL Hgb 8.9 L (13.0-17.0) g/dL Hct 26.1 L (39.6-50.0) % RDW 15.0 H (11.5-14.5) % Plt Count 561 H (140-440) X 10*3/uL MPV 9.3 L (9.5-12.2) fL Sodium 129 L (135-145) mmol/L Chloride 92 L (96-109) mmol/L BUN/Creatinine Ratio 29.56 H (12.00-20.00) Ratio Calcium 8.2 L (8.7-10.3) mg/dL RBC Folate 1,278 H (280 - 791) ng/mL Assessment and Plan (1) Bimalleolar ankle fracture Narrative/Plan: I advised him to maintain splint, continue elevation, ice, and non weight b earing.Continue pain management. He may F/U as outpatient in office in 1-2 weeks. Current Visit: Yes Status: Acute Priority: Medium Code(s): S82.843A - DISPLACED BIMALLEOLAR FRACTURE OF UNSP LOWER LEG, INIT SNOMED Code(s): 535731746 Time with Patient: Less than 30
[2022-04-19] MEDS: CEFEPIME 2 GM in SODIUM CHLORIDE 0.9% 100 ML IVPB SCH ×2 (16:23→23:04)
[2022-04-19] MEDS: APIXABAN 5 MG TAB PO SCH (20:40)
[2022-04-19] MEDS: ATORVASTATIN 10 MG TAB PO SCH (20:40)
[2022-04-19] MEDS: LATANOPROST 0.005% OPHTH DROPS 2.5 ML BTL RIGHT EYE SCH (20:41)
[2022-04-19] MEDS: GABAPENTIN 300 MG CAP PO SCH (20:41)
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
[2022-04-20] MEDS: HYDROcodone/APAP 5-325MG 1 EACH TAB PO PRN (04:29)
[2022-04-20] MEDS: ACETAMINOPHEN TAB 325 MG TAB PO PRN (06:00)
[2022-04-20] MEDS: ASPIRIN 81 MG PO SCH (08:18)
[2022-04-20] MEDS: CEFEPIME 2 GM in SODIUM CHLORIDE 0.9% 100 ML IVPB SCH ×2 (08:18→16:05)
[2022-04-20] MEDS: PANTOPRAZOLE 40 MG TABLET PO SCH (08:18)
[2022-04-20] MEDS: predniSONE 5 MG TAB PO SCH (08:18)
[2022-04-20] MEDS: TACROLIMUS 1 MG CAP PO SCH ×2 (08:19→21:13)
[2022-04-20] MEDS: DORZOLAMIDE HCL 2% DROPS 10 ML BTL LEFT EYE SCH ×2 (08:19→21:14)
[2022-04-20] MEDS: APIXABAN 5 MG TAB PO SCH ×2 (08:19→21:13)
[2022-04-20] MEDS: carvediloL 6.25 MG TAB PO SCH ×2 (08:19→21:13)
[2022-04-20] MEDS: hydrALAZINE HCL 25 MG TAB PO SCH ×3 (08:19→21:13)
[2022-04-20] MEDS: BRIMONIDINE TARTRATE 0.2% DROPS 5 ML BTL BOTH EYES SCH ×2 (08:20→21:14)
[2022-04-20] MEDS: TIMOLOL 0.5% OPHTH DROPS 5 ML BTL BOTH EYES SCH ×2 (08:20→21:14)
[2022-04-20 10:22] LABS: HCT 22.9 % (39.6-50.0); HGB 7.5 g/dL (13.0-17.0); MCH 27.3 pg (27.0-32.0); MCHC 32.8 g/dL (32.0-37.0); MCV 83.3 fL (80.0-97.0); Mean Platelet Volume 9.1 fL (9.5-12.2); NRBC Per 100 WBC 0 /100 WBCS (0.0-0.0); Platelet Count 535 X 10*3/uL (140-440); RBC 2.75 X 10*6/uL (4.40-5.60); RDW 15.8 % (11.5-14.5); WBC 19.09 X 10*3/uL (4.50-10.00)
[2022-04-20 10:36] LABS: BUN/Creat Ratio 23.33 Ratio (12.00-20.00); Calcium 7.9 mg/dL (8.7-10.3); Non-African American GFR(CKD) 93.2 (60.0-200.0); Potassium 4.2 mmol/L (3.5-5.5)
[2022-04-20] MEDS: bisacodyL 5 MG TABLET.DR PO PRN (11:18)
[2022-04-20] MEDS ORDERED: RX INFO: IV CONTRAST WAS GIVEN 1 EACH MISC MISCELLANE PRN ×2 (12:05→15:22)
--- NOTE | 2022-04-20 12:05 | P.PN ---
Subjective Progress Note Date: 04/20/22 Patient spiked a fever to 101 again today. C/o pain in foot and some belly upsettedness today. CT A/P did not identify source of infx. PC is elevated to 18. WBC is 19 today, increasing. SaO2 is 89% on room air. Gen: awake, alert HEENT: normocephalic, atraumatic, good hearing acuity, moist mucous membranes Resp: good air exchange, breathing comfortably with no accessory muscle use, left lower lobe crackles CVS: good distal perfusion x 4, regular rate and rhythm no murmurs GI: soft, NTTP, ND : no SPT, no CVAT, beard catheter not present MSK: no pitting edema, no clubbing Neuro: non-focal, moving all extremities Psych: cooperative, euthymic mood Assessment/plan: Left ankle fracture complicated by Charcot joint and peripheral neuropathy - continue with splint and non weight bearing. - pain control - Ortho recs review: outpatient follow-up - eliquis on hold incase surgery is indicated. - he refuses rehab Pyrexia in the setting of immunospuression and recent chronic osteomyelitis, off abx for 6 weeks Sepsis secondary to suspected Pneumonia - check Covid, Flu, and RSV - CXR ordered and reviewed by myself no interstitial infiltrate, chronic changes - check blood cultures - consult ID - continue cefepime - CT chest for new crackles in the chest Anemia of chronic disease -Hemoglobin has dropped approximately 2 g last 2 months -IV iron X1 per nephrology -Follow CBC Hyponatremia,stable Mildly elevated creatinine at 1.28 not diagnostic of acute kidney injury is creatinine elevation less than 0.3 with baseline at 1.1 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 An and off IV fluids, Sodium tablets. - prednisone, tacrolimus, mycophenolate -nephrology recs appreciated - hold lasix Diastolic congestive heart failure with ejection fraction 50-55% Hypertension Paroxysmal Atrial fibrillation anticoagulated with this - meds reviewed - Lasix on hold. likely home off lasix or with decreased dosing. - resume eliquis - monitor HR Prior diabetes with diabetic neuropathy - Follow blood sugars closely - A1C 5.6 Dyslipidemia -Lovastatin Recent prolonged Left foot osteomyelitis, currently off antibiotics awaiting home med rec to be completed. D/W PT/OT and they will trial the patient with knee scooter in AM to see if he as enough balance to use this at home. DVT prophylaxis: SCDs Discussed with: patient, nursing, Anticipated discharge date: in AM Anticipated discharge place: vs SNF A total of 25 minutes was spent on the care of this complex patient more than 50% of the time was spent in counseling and care coordination. Objective - Vital Signs Vital signs: Vital Signs Temp 99 F 04/20/22 09:10 Pulse 85 04/20/22 05:00 Resp 16 04/20/22 05:00 BP 131/60 04/20/22 05:00 Pulse Ox 97 04/20/22 05:00 FiO2 Intake & Output 04/19/22 04/20/22 04/20/22 18:59 06:59 18:59 Output Total 300 150 Balance -300 -150 Output: Urine 300 150 Other: Voiding Method Urinal Urinal # Voids 1 1 # Bowel Movements 0 1 - Labs CBC & Chem 7: 04/20/22 06:34 04/20/22 06:34 Labs: Abnormal Lab Results - Last 24 Hours (Table) 04/19/22 04/19/22 04/19/22 Range/Units 06:03 06:03 13:08 WBC (4.50-10.00) X 10*3/uL RBC (4.40-5.60) X 10*6/uL Hgb (13.0-17.0) g/dL Hct (39.6-50.0) % RDW (11.5-14.5) % Plt Count (140-440) X 10*3/uL MPV (9.5-12.2) fL Sodium (135-145) mmol/L Chloride (96-109) mmol/L BUN/Creatinine Ratio (12.00-20.00) Ratio Calcium (8.7-10.3) mg/dL C-Reactive Protein 19.4 H (<1.0) mg/dL Procalcitonin 18.30 H (0.02-0.09) ng/mL Urine Protein Trace H (Negative) 04/20/22 04/20/22 Range/Units 06:34 06:34 WBC 19.09 H (4.50-10.00) X 10*3/uL RBC 2.75 L (4.40-5.60) X 10*6/uL Hgb 7.5 L (13.0-17.0) g/dL Hct 22.9 L (39.6-50.0) % RDW 15.8 H (11.5-14.5) % Plt Count 535 H (140-440) X 10*3/uL MPV 9.1 L (9.5-12.2) fL Sodium 127 L (135-145) mmol/L Chloride 94 L (96-109) mmol/L BUN/Creatinine Ratio 23.33 H (12.00-20.00) Ratio Calcium 7.9 L (8.7-10.3) mg/dL C-Reactive Protein (<1.0) mg/dL Procalcitonin (0.02-0.09) ng/mL Urine Protein (Negative)
--- NOTE | 2022-04-20 12:25 | P.PN ---
Subjective Patient is seen for follow-up for hyponatremia. Improved with normal saline No plans for immediate surgical intervention from orthopedic standpoint for left ankle fracture Patient has had fever which again spiked to 10 1F. ID has been consulted. No urinary symptoms No complaints of cough Patient states that he does not feel well today. Continues to have pain in his left foot at the site of fracture and previous osteomyelitis Objective - Vital Signs Vital signs: Vital Signs Temp 97.7 F 04/20/22 11:25 Pulse 66 04/20/22 11:25 Resp 18 04/20/22 11:25 BP 117/61 04/20/22 11:25 Pulse Ox 92 L 04/20/22 11:25 FiO2 Intake & Output 04/19/22 04/20/22 04/20/22 18:59 06:59 18:59 Output Total 300 150 Balance -300 -150 Output: Urine 300 150 Other: Voiding Method Urinal Urinal # Voids 1 1 # Bowel Movements 0 1 - Exam Awake, comfortable, in no acute distress Alert oriented 3 Examination of the heart S1 and S2 Examination of the lungs bilateral breath sounds are heard Abdomen is soft nontender Examination of the lower extremities shows left leg in splint. No edema on the right leg COMPLIANCE REVIEW SPECIALIST exam grossly intact - Labs CBC & Chem 7: 04/20/22 06:34 04/20/22 06:34 Labs: Abnormal Lab Results - Last 24 Hours (Table) 04/19/22 04/19/22 04/20/22 Range/Units 06:03 13:08 06:34 WBC 19.09 H (4.50-10.00) X 10*3/uL RBC 2.75 L (4.40-5.60) X 10*6/uL Hgb 7.5 L (13.0-17.0) g/dL Hct 22.9 L (39.6-50.0) % RDW 15.8 H (11.5-14.5) % Plt Count 535 H (140-440) X 10*3/uL MPV 9.1 L (9.5-12.2) fL Sodium (135-145) mmol/L Chloride (96-109) mmol/L BUN/Creatinine Ratio (12.00-20.00) Ratio Calcium (8.7-10.3) mg/dL Procalcitonin 18.30 H (0.02-0.09) ng/mL Urine Protein Trace H (Negative) 04/20/22 Range/Units 06:34 WBC (4.50-10.00) X 10*3/uL RBC (4.40-5.60) X 10*6/uL Hgb (13.0-17.0) g/dL Hct (39.6-50.0) % RDW (11.5-14.5) % Plt Count (140-440) X 10*3/uL MPV (9.5-12.2) fL Sodium 127 L (135-145) mmol/L Chloride 94 L (96-109) mmol/L BUN/Creatinine Ratio 23.33 H (12.00-20.00) Ratio Calcium 7.9 L (8.7-10.3) mg/dL Procalcitonin (0.02-0.09) ng/mL Urine Protein (Negative) Microbiology - Last 24 Hours (Table) 04/19/22 09:16 Blood Culture - Preliminary Blood No Growth after 24 hours Assessment and Plan Assessment: 1. Acute kidney injury, acute allograft dysfunction mostly prerenal currently improved with IV hydration 2. Status post simultaneous kidney pancreas transplant in 1997 at [facility] maintained on CellCept and Prograf along with prednisone 5 mg daily. Patient had elevated level of tacrolimus at 9.7 on 02/22/2022. Repeat level came back at 17.8 therefore Prograf will be on hold. 3. Hyponatremia, hypovolemic improved normal saline. Continue to hold Lasix, status post saline 4. Recent diagnosis of diastolic CHF with ejection fraction 50-55% 5. Paroxysmal A. fib maintained on eliquis, rate controlled 6. Hypertension currently controlled 7. Left ankle fracture 8. New fever currently being worked up. Plan: Hold Prograf as level was elevated at 17.8. This was drawn at 5 AM. Repeat level again in 1-2 days Continue antibiotics
[2022-04-20] MEDS: IOPAMIDOL CONTRAST (ORAL USE) VIAL PO PRN ×2 (13:16→14:24)
--- NOTE | 2022-04-20 15:57 | CT ---
EXAMINATION TYPE: CT ChestAbdPelvis w con DATE OF EXAM: 04/20/2022 COMPARISON: HISTORY: eval for bact pna vs cavitary/fungal pna CT DLP: 585.4 mGycm CONTRAST: CT scan of the chest, abdomen and pelvis is performed without Oral Contrast and with IV Contrast, pat ient injected with 100ML mL of Isovue 300. CT Chest: LUNGS: Bilateral pleural effusions right greater than left. Maximal AP dimension on the right is appr oximately 5.5 cm and on the left approximately 2.2 cm. There is associated compressive atelectasis. MEDIASTINUM: Thoracic aorta is of normal caliber. The heart is not enlarged. No evidence for media stinal mass or adenopathy. HILAR STRUCTURES: No evidence for mass. No hilar adenopathy is appreciated. OTHER: No significant abnormality. CONTRAST CT ABDOMEN AND PELVIS FINDINGS: LIVER/GB: No calcified gallstones. No space occupying hepatic lesion. Biliary tree is of normal ca liber. PANCREAS: No inflammation. No distinct mass. SPLEEN: No splenic enlargement. No lesion seen. ADRENALS: No nodule. No thickening. KIDNEYS/BLADDER: Atrophic change of the bilateral kidneys with renal transplant noted within the left hemiabdomen. Renal transplant demonstrates several cysts. No hydronephrosis or solid mass. BOWEL: Normal appendix. Normal bowel caliber. No inflammation. GENITAL ORGANS: No gross abnormality. LYMPH NODES: No greater than 1cm abdominal or pelvic lymph nodes are appreciated. AORTA: No significant abnormality. OSSEOUS STRUCTURES: No significant abnormality is seen. OTHER: No significant additional abnormality is seen. IMPRESSION: 1. Bilateral right greater than left pleural effusions with associated compressive atelectasis. 2. Nonrotation of the bowel with the small bowel within the right hemiabdomen and most of the large b owel within the left hemiabdomen. 3. Transplanted kidney without renal atrophic change of the [place] kidneys.
[2022-04-20] MEDS: metroNIDAZOLE 500 MG TAB PO SCH ×2 (16:05→21:13)
[2022-04-20] MEDS: ATORVASTATIN 10 MG TAB PO SCH (21:13)
[2022-04-20] MEDS: GABAPENTIN 300 MG CAP PO SCH (21:13)
[2022-04-20] MEDS: LATANOPROST 0.005% OPHTH DROPS 2.5 ML BTL RIGHT EYE SCH (21:15)
--- NOTE | 2022-04-20 21:55 | P.PN ---
Subjective Progress Note Date: 04/20/22 Principal diagnosis: Fever Patient is a 61-year-old male with a past medical history significant for end-stage renal disease patient is status post renal and pancreas transplant on immunosuppressive medication also has history of left foot plantar wound and osteomyelitis for the patient is currently his antibiotic therapy patient presented to hospital for left ankle pain has been diagnosed with a fractured treated medically also spiked a fever and did have elevated white count. On today's evaluation and that is 04/20/2022 patient did spike a fever of 101.5F earlier this morning the patient is afebrile since then patient because of some abdominal pain and discomfort and did have multiple bowel movements some nausea but no vomiting no chest pain or shortness breath occasional cough with sputum production Objective - Vital Signs Vital signs: Vital Signs Temp 97.7 F 04/20/22 11:25 Pulse 66 04/20/22 11:25 Resp 18 04/20/22 11:25 BP 117/61 04/20/22 11:25 Pulse Ox 92 L 04/20/22 11:25 FiO2 Intake & Output 04/19/22 04/20/22 04/20/22 18:59 06:59 18:59 Output Total 300 150 Balance -300 -150 Output: Urine 300 150 Other: Voiding Method Urinal Urinal # Voids 1 1 # Bowel Movements 0 1 - Exam GENERAL DESCRIPTION: Middle-aged male lying in bed in no distress RESPIRATORY SYSTEM: Unlabored breathing , decreased breath sounds at bases HEART: S1 S2 regular rate and rhythm , ABDOMEN: Soft , mild distention and tenderness EXTREMITIES: No edema feet - Labs CBC & Chem 7: 04/20/22 06:34 04/20/22 06:34 Labs: Abnormal Lab Results - Last 24 Hours (Table) 04/19/22 04/19/22 04/20/22 Range/Units 06:03 13:08 06:34 WBC 19.09 H (4.50-10.00) X 10*3/uL RBC 2.75 L (4.40-5.60) X 10*6/uL Hgb 7.5 L (13.0-17.0) g/dL Hct 22.9 L (39.6-50.0) % RDW 15.8 H (11.5-14.5) % Plt Count 535 H (140-440) X 10*3/uL MPV 9.1 L (9.5-12.2) fL Sodium (135-145) mmol/L Chloride (96-109) mmol/L BUN/Creatinine Ratio (12.00-20.00) Ratio Calcium (8.7-10.3) mg/dL Procalcitonin 18.30 H (0.02-0.09) ng/mL Urine Protein Trace H (Negative) 04/20/22 Range/Units 06:34 WBC (4.50-10.00) X 10*3/uL RBC (4.40-5.60) X 10*6/uL Hgb (13.0-17.0) g/dL Hct (39.6-50.0) % RDW (11.5-14.5) % Plt Count (140-440) X 10*3/uL MPV (9.5-12.2) fL Sodium 127 L (135-145) mmol/L Chloride 94 L (96-109) mmol/L BUN/Creatinine Ratio 23.33 H (12.00-20.00) Ratio Calcium 7.9 L (8.7-10.3) mg/dL Procalcitonin (0.02-0.09) ng/mL Urine Protein (Negative) Microbiology - Last 24 Hours (Table) 04/19/22 09:16 Blood Culture - Preliminary Blood No Growth after 24 hours Assessment and Plan (1) Leukocytosis Current Visit: Yes Status: Acute Code(s): D72.829 - ELEVATED WHITE BLOOD CELL COUNT, UNSPECIFIED SNOMED Code(s): 851754860 (2) Fever Current Visit: No Status: Acute Code(s): R50.9 - FEVER, UNSPECIFIED SNOMED Code(s): 780603419 Plan: 1patient with a fever in this patient who do have a history of pancreas and renal transplant on immunosuppressive medication admitted to the hospital with left ankle fracture that is currently being treated conservatively with splint patient do have a history of nonhealing wound on the plantar aspect however currently mentioned no worsening of the wound or any drainage unfortunately I was not able to examine the foot properly because of this pain the patient is on patient currently do not have any obvious focus of infection abdomen has been s oft medical examination influenza RSV and COVID testing was negative. 2patient did have elevated CRP and procalcitonin level and blood cultures currently pending. 3 with his abdominal symptoms he will go ahead and check CT of abdominal pelvis with oral contrast only continue with the cefepime will add Flagyl and monitor clinical course closely Time with Patient: Less than 30
[2022-04-20] MEDS: MELATONIN 3 MG TABLET PO PRN (22:44)
[2022-04-21] MEDS: CEFEPIME 2 GM in SODIUM CHLORIDE 0.9% 100 ML IVPB SCH ×4 (00:06→23:46)
[2022-04-21] MEDS: HYDROcodone/APAP 5-325MG 1 EACH TAB PO PRN ×2 (05:23→17:01)
[2022-04-21] MEDS: APIXABAN 5 MG TAB PO SCH ×2 (08:21→20:59)
[2022-04-21] MEDS: ASPIRIN 81 MG PO SCH (08:21)
[2022-04-21] MEDS: predniSONE 5 MG TAB PO SCH (08:21)
[2022-04-21] MEDS: PANTOPRAZOLE 40 MG TABLET PO SCH (08:21)
[2022-04-21] MEDS: carvediloL 6.25 MG TAB PO SCH ×2 (08:22→20:59)
[2022-04-21] MEDS: DORZOLAMIDE HCL 2% DROPS 10 ML BTL LEFT EYE SCH ×2 (08:22→21:00)
[2022-04-21] MEDS: BRIMONIDINE TARTRATE 0.2% DROPS 5 ML BTL BOTH EYES SCH ×2 (08:22→21:00)
[2022-04-21] MEDS: hydrALAZINE HCL 25 MG TAB PO SCH ×3 (08:22→21:00)
[2022-04-21] MEDS: metroNIDAZOLE 500 MG TAB PO SCH ×3 (08:22→20:59)
[2022-04-21] MEDS: TIMOLOL 0.5% OPHTH DROPS 5 ML BTL BOTH EYES SCH ×2 (08:22→21:00)
[2022-04-21] MEDS ORDERED: SODIUM CHLORIDE TAB 1 GM TAB PO STA (08:27)
--- NOTE | 2022-04-21 08:27 | P.PN ---
Subjective Patient is seen for follow-up for hyponatremia. Improved with normal saline No plans for immediate surgical intervention from orthopedic standpoint for left ankle fracture Patient has had fever which again spiked to 10 1F. ID has been consulted. No urinary symptoms No complaints of cough Patient states that he does not feel well today. Continues to have pain in his left foot at the site of fracture and previous osteomyelitis This morning patient is complaining of shortness of breath. Objective - Vital Signs Vital signs: Vital Signs Temp 98.7 F 04/21/22 03:55 Pulse 86 04/21/22 03:55 Resp 16 04/21/22 03:55 BP 129/62 04/21/22 03:55 Pulse Ox 98 04/21/22 03:55 FiO2 Intake & Output 04/20/22 04/21/22 04/21/22 18:59 06:59 18:59 Output Total 150 300 Balance -150 -300 Weight 54.431 kg Output: Urine 150 300 Stool 0 Other: Voiding Method Urinal # Voids 1 # Bowel Movements 1 - Exam Awake, comfortable, in no acute distress Alert oriented 3 Examination of the heart S1 and S2 Examination of the lungs bilateral breath sounds are heard Abdomen is soft nontender Examination of the lower extremities shows left leg in splint. No edema on the right leg [employer] exam grossly intact - Labs CBC & Chem 7: 04/20/22 06:34 04/20/22 06:34 Labs: Abnormal Lab Results - Last 24 Hours (Table) 04/20/22 04/20/22 Range/Units 06:34 06:34 WBC 19.09 H (4.50-10.00) X 10*3/uL RBC 2.75 L (4.40-5.60) X 10*6/uL Hgb 7.5 L (13.0-17.0) g/dL Hct 22.9 L (39.6-50.0) % RDW 15.8 H (11.5-14.5) % Plt Count 535 H (140-440) X 10*3/uL MPV 9.1 L (9.5-12.2) fL Sodium 127 L (135-145) mmol/L Chloride 94 L (96-109) mmol/L BUN/Creatinine Ratio 23.33 H (12.00-20.00) Ratio Calcium 7.9 L (8.7-10.3) mg/dL Microbiology - Last 24 Hours (Table) 04/19/22 10:25 Blood Culture - Preliminary Blood No Growth after 24 hours 04/19/22 09:16 Blood Culture - Preliminary Blood No Growth after 24 hours Assessment and Plan Assessment: 1. Acute kidney injury, acute allograft dysfunction mostly prerenal currently improved with IV hydration 2. Status post simultaneous kidney pancreas transplant in 1997 at [facility] [place] maintained on CellCept and Prograf along with prednisone 5 mg daily. Patient had elevated level of tacrolimus at 9.7 on 02/22/2022. Repeat level came back at 17.8 therefore Prograf will be on hold. 3. Hyponatremia, hypovolemic improved normal saline. Continue to hold Lasix, status post saline. Sodium dropped to 127 today. Will give 1 dose of sodium chloride tablet 4. Recent diagnosis of diastolic CHF with ejection fraction 50-55% 5. Paroxysmal A. fib maintained on eliquis, rate controlled 6. Hypertension currently controlled 7. Left ankle fracture 8. New fever currently being worked up. Plan: Hold Prograf as level was elevated at 17.8. This was drawn at 5 AM. Repeat level again in 1-2 days Continue antibiotics Check chest x-ray Sodium chloride tab 1 Repeat labs in a.m.
[2022-04-21 09:00] LABS: Basophils # (A) 0.04 X 10*3/uL (0.00-0.10); Basophils % (A) 0.2 %; Eosinophils # (A) 0.01 X 10*3/uL (0.04-0.35); Eosinophils % (A) 0 %; HCT 24.5 % (39.6-50.0); HGB 7.9 g/dL (13.0-17.0); Lymphocytes # (A) 1.27 X 10*3/uL (0.90-5.00); Lymphocytes % (A) 5.5 %; MCH 27.6 pg (27.0-32.0); MCHC 32.2 g/dL (32.0-37.0); MCV 85.7 fL (80.0-97.0); Mean Platelet Volume 9.4 fL (9.5-12.2); Monocytes # (A) 1.97 X 10*3/uL (0.20-1.00); Monocytes % (A) 8.5 %; NRBC Per 100 WBC 0 /100 WBCS (0.0-0.0); Neutrophils # (A) 19.61 X 10*3/uL (1.80-7.70); Neutrophils % (A) 84.8 %; Platelet Count 537 X 10*3/uL (140-440); RBC 2.86 X 10*6/uL (4.40-5.60); RDW 15.7 % (11.5-14.5); WBC 23.13 X 10*3/uL (4.50-10.00)
[2022-04-21 09:14] LABS: African American GFR (CKD) 95.1 (60.0-200.0); Albumin 2.4 g/dL (3.8-4.9); Albumin/Globulin Ratio 0.69 (1.60-3.17); Anion Gap 11.9 mmol/L (10.00-18.00); BUN/Creat Ratio 21.9 Ratio (12.00-20.00); Blood Urea Nitrogen 21.9 mg/dL (9.0-27.0); C Reactive Protein 19.8 mg/dL (0.00-0.80); Calcium 8.1 mg/dL (8.7-10.3); Carbon Dioxide 19.1 mmol/L (20.0-27.5); Globulin 3.5 g/dL (1.6-3.3); Potassium 4.5 mmol/L (3.5-5.5); Total Bilirubin 0.6 mg/dL (0.30-1.20); Total Protein 5.9 g/dL (6.2-8.2)
--- NOTE | 2022-04-21 09:49 | XR ---
EXAMINATION TYPE: XR chest 1V DATE OF EXAM: 04/21/2022 COMPARISON: NONE HISTORY: Shortness of breath FINDINGS: There are bilateral pleural effusions with cardiomegaly and bibasilar infiltrate. There is a diffuse interstitial pattern. Mediport catheter noted. Diffuse osteopenia. IMPRESSION: 1. Correlate for pulmonary edema with CHF. Otherwise consider pneumonia.
--- NOTE | 2022-04-21 11:43 | P.PN ---
Subjective Progress Note Date: 04/21/22 Patient feeling short of breath more than yesterday. CT Chest with pleural effusions. Gen: awake, alert HEENT: normocephalic, atraumatic, good hearing acuity, moist mucous membranes Resp: good air exchange, breathing comfortably with no accessory muscle use, left lower lobe crackles CVS: good distal perfusion x 4, regular rate and rhythm no murmurs GI: soft, NTTP, ND : no SPT, no CVAT, beard catheter not present MSK: no pitting edema, no clubbing Neuro: non-focal, moving all extremities Psych: cooperative, euthymic mood Assessment/plan: Left ankle fracture complicated by Charcot joint and peripheral neuropathy - continue with splint and non weight bearing. - pain control - Ortho recs review: outpatient follow-up - eliquis on hold incase surgery is indicated. - he refuses rehab Pyrexia in the setting of immunospuression and recent chronic osteomyelitis, off abx for 6 weeks Sepsis secondary to suspected Pneumonia - check Covid, Flu, and RSV - CXR ordered and reviewed by myself no interstitial infiltrate, chronic changes - check blood cultures - consult ID - continue cefepime - CT chest for new crackles in the chest Anemia of chronic disease -Hemoglobin has dropped approximately 2 g last 2 months -IV iron X1 per nephrology -Follow CBC Hyponatremia,stable Mildly elevated creatinine at 1.28 not diagnostic of acute kidney injury is creatinine elevation less than 0.3 with baseline at 1.1 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 An and off IV fluids, Sodium tablets. - prednisone, tacrolimus, mycophenolate -nephrology recs appreciated - hold lasix Diastolic congestive heart failure with ejection fraction 50-55% Hypertension Paroxysmal Atrial fibrillation anticoagulated with this - meds reviewed - Lasix on hold. likely home off lasix or with decreased dosing. - resume eliquis - monitor HR Prior diabetes with diabetic neuropathy - Follow blood sugars closely - A1C 5.6 Dyslipidemia -Lovastatin Recent prolonged Left foot osteomyelitis, currently off antibiotics awaiting home med rec to be completed. D/W PT/OT and they will trial the patient with knee scooter in AM to see if he as enough balance to use this at home. DVT prophylaxis: SCDs Discussed with: patient, nursing, Anticipated discharge date: in AM Anticipated discharge place: HH vs SNF A total of 25 minutes was spent on the care of this complex patient more than 50% of the time was spent in counseling and care coordination. Objective - Vital Signs Vital signs: Vital Signs Temp 98.7 F 04/21/22 03:55 Pulse 86 04/21/22 03:55 Resp 16 04/21/22 03:55 BP 129/62 04/21/22 03:55 Pulse Ox 98 04/21/22 03:55 FiO2 Intake & Output 04/20/22 04/21/22 04/21/22 18:59 06:59 18:59 Output Total 150 300 Balance -150 -300 Weight 54.431 kg Output: Urine 150 300 Stool 0 Other: Voiding Method Urinal Urinal # Voids 1 # Bowel Movements 1 - Labs CBC & Chem 7: 04/21/22 05:31 04/21/22 05:31 Labs: Abnormal Lab Results - Last 24 Hours (Table) 04/21/22 04/21/22 Range/Units 05:31 05:31 WBC 23.13 H (4.50-10.00) X 10*3/uL RBC 2.86 L (4.40-5.60) X 10*6/uL Hgb 7.9 L (13.0-17.0) g/dL Hct 24.5 L (39.6-50.0) % RDW 15.7 H (11.5-14.5) % Plt Count 537 H (140-440) X 10*3/uL MPV 9.4 L (9.5-12.2) fL Immature Gran # 0.23 H (0.00-0.04) X 10*3/uL Neutrophils # 19.61 H (1.80-7.70) X 10*3/uL Monocytes # 1.97 H (0.20-1.00) X 10*3/uL Eosinophils # 0.01 L (0.04-0.35) X 10*3/uL Sodium 125 L (135-145) mmol/L Chloride 94 L (96-109) mmol/L Carbon Dioxide 19.1 L (20.0-27.5) mmol/L BUN/Creatinine Ratio 21.90 H (12.00-20.00) Ratio Calcium 8.1 L (8.7-10.3) mg/dL C-Reactive Protein 19.80 H (0.00-0.80) mg/dL Total Protein 5.9 L (6.2-8.2) g/dL Albumin 2.4 L (3.8-4.9) g/dL Globulin 3.5 H (1.6-3.3) g/dL Albumin/Globulin Ratio 0.69 L (1.60-3.17) g/dL Microbiology - Last 24 Hours (Table) 04/19/22 10:25 Blood Culture - Preliminary Blood No Growth after 24 hours 04/19/22 09:16 Blood Culture - Preliminary Blood No Growth after 24 hours
--- NOTE | 2022-04-21 15:03 | P.PN ---
Subjective Progress Note Date: 04/21/22 Principal diagnosis: Fever Patient is a 61-year-old male with a past medical history significant for end-stage renal disease patient is status post renal and pancreas transplant on immunosuppressive medication also has history of left foot plantar wound and osteomyelitis for the patient is currently his antibiotic therapy patient presented to hospital for left ankle pain has been diagnosed with a fractured treated medically also spiked a fever and did have elevated white count. On today's evaluation and that is 04/21/2022 patient is afebrile today , the patient is breathing comfortably currently on 3 L nasal cannula, the patient denies having any chest pain he did have some cough but not bringing up any sputum patient denies any nausea no vomiting no abdominal pain he did have a few bowel movements but no diarrhea per the nursing staff burning or pain to the left ankle area but not so much to the plantar aspect the left foot where the patient used to have an ulcer Objective - Vital Signs Vital signs: Vital Signs Temp 98.1 F 04/21/22 11:39 Pulse 72 04/21/22 11:39 Resp 17 04/21/22 11:39 BP 120/63 04/21/22 11:39 Pulse Ox 98 04/21/22 11:39 FiO2 Intake & Output 04/20/22 04/21/22 04/21/22 18:59 06:59 18:59 Output Total 150 300 Balance -150 -300 Weight 54.431 kg Output: Urine 150 300 Stool 0 Other: Voiding Method Urinal Urinal # Voids 1 # Bowel Movements 1 - Exam GENERAL DESCRIPTION: Middle-aged male lying in bed in no distress RESPIRATORY SYSTEM: Unlabored breathing , decreased breath sounds at bases HEART: S1 S2 regular rate and rhythm , ABDOMEN: Soft , mild distention and tenderness EXTREMITIES: No edema feet - Labs CBC & Chem 7: 04/21/22 05:31 04/21/22 05:31 Labs: Abnormal Lab Results - Last 24 Hours (Table) 04/21/22 04/21/22 Range/Units 05:31 05:31 WBC 23.13 H (4.50-10.00) X 10*3/uL RBC 2.86 L (4.40-5.60) X 10*6/uL Hgb 7.9 L (13.0-17.0) g/dL Hct 24.5 L (39.6-50.0) % RDW 15.7 H (11.5-14.5) % Plt Count 537 H (140-440) X 10*3/uL MPV 9.4 L (9.5-12.2) fL Immature Gran # 0.23 H (0.00-0.04) X 10*3/uL Neutrophils # 19.61 H (1.80-7.70) X 10*3/uL Monocytes # 1.97 H (0.20-1.00) X 10*3/uL Eosinophils # 0.01 L (0.04-0.35) X 10*3/uL Sodium 125 L (135-145) mmol/L Chloride 94 L (96-109) mmol/L Carbon Dioxide 19.1 L (20.0-27.5) mmol/L BUN/Creatinine Ratio 21.90 H (12.00-20.00) Ratio Calcium 8.1 L (8.7-10.3) mg/dL C-Reactive Protein 19.80 H (0.00-0.80) mg/dL Total Protein 5.9 L (6.2-8.2) g/dL Albumin 2.4 L (3.8-4.9) g/dL Globulin 3.5 H (1.6-3.3) g/dL Albumin/Globulin Ratio 0.69 L (1.60-3.17) g/dL Microbiology - Last 24 Hours (Table) 04/19/22 09:16 Blood Culture - Preliminary Blood No Growth after 48 hours 04/19/22 10:25 Blood Culture - Preliminary Blood No Growth after 24 hours Assessment and Plan (1) Leukocytosis Current Visit: Yes Status: Acute Code(s): D72.829 - ELEVATED WHITE BLOOD CELL COUNT, UNSPECIFIED SNOMED Code(s): 439228125 (2) Fever Current Visit: No Status: Acute Code(s): R50.9 - FEVER, UNSPECIFIED SNOMED Code(s): 212959258 Plan: 1patient with a fever in this patient who do have a history of pancreas and renal transplant on immunosuppressive medication admitted to the hospital with left ankle fracture that is currently being treated conservatively with splint patient do have a history of nonhealing wound on the plantar aspect however currently mentioned no worsening of the wound or any drainage unfortunately I was not able to examine the foot properly because of this pain the patient is on patient currently do not have any obvious focus of infection abdomen has been soft medical examination influenza RSV and COVID testing was negative. 2patient did have elevated CRP and procalcitonin level and blood cultures are so far negative. [address] chest abdominal pelvis did show some effusion no consolidation or acute normality inside abdominal 4the patient fever has resolved white count is slightly worse culture had been negative so far, discussed with orthopedics as a need to evaluate his left foot plantar wound for now continue with the cefepime and Flagyl repeat his inflammatory markers with the a.m. lab Time with Patient: Less than 30
--- NOTE | 2022-04-21 17:06 | P.PN ---
Subjective Progress Note Date: 04/21/22 Principal diagnosis: Left ankle debbie fracture Patient seen at bedside today. We are following him for left debbie ankle fracture. He has also been treated as outpatient for chronic diabetic wound at plantar surface of his left foot. He has no new complaints today. No new numbness, calf pain, fever chills or other. Objective - Vital Signs Vital signs: Vital Signs Temp 98.1 F 04/21/22 11:39 Pulse 72 04/21/22 11:39 Resp 17 04/21/22 11:39 BP 120/63 04/21/22 11:39 Pulse Ox 98 04/21/22 11:39 FiO2 Intake & Output 04/20/22 04/21/22 04/21/22 18:59 06:59 18:59 Output Total 150 300 Balance -150 -300 Weight 54.431 kg Output: Urine 150 300 Stool 0 Other: Voiding Method Urinal Urinal # Voids 1 # Bowel Movements 1 - Exam Splint and padding was taken down today. There is dime sized chronic appearing wound at plantar surface of left foot. There is minimal erythema. No active bleeding. There is also bruising and swelling around the foot and ankle as expected. There is a fracture blister type wound across anterior ankle. There is no active bleeding or drainage. There is mild mild erythema across anterior lower leg. The foot is charcot. Neurovascular status distally in left leg is baseline with motor sensation decreased and decreased cap refill but foot and toes appear to be perfused. - Constitutional General appearance: Present: no acute distress - Labs CBC & Chem 7: 04/21/22 05:31 04/21/22 05:31 Labs: Abnormal Lab Results - Last 24 Hours (Table) 04/21/22 04/21/22 Range/Units 05:31 05:31 WBC 23.13 H (4.50-10.00) X 10*3/uL RBC 2.86 L (4.40-5.60) X 10*6/uL Hgb 7.9 L (13.0-17.0) g/dL Hct 24.5 L (39.6-50.0) % RDW 15.7 H (11.5-14.5) % Plt Count 537 H (140-440) X 10*3/uL MPV 9.4 L (9.5-12.2) fL Immature Gran # 0.23 H (0.00-0.04) X 10*3/uL Neutrophils # 19.61 H (1.80-7.70) X 10*3/uL Monocytes # 1.97 H (0.20-1.00) X 10*3/uL Eosinophils # 0.01 L (0.04-0.35) X 10*3/uL Sodium 125 L (135-145) mmol/L Chloride 94 L (96-109) mmol/L Carbon Dioxide 19.1 L (20.0-27.5) mmol/L BUN/Creatinine Ratio 21.90 H (12.00-20.00) Ratio Calcium 8.1 L (8.7-10.3) mg/dL C-Reactive Protein 19.80 H (0.00-0.80) mg/dL Total Protein 5.9 L (6.2-8.2) g/dL Albumin 2.4 L (3.8-4.9) g/dL Globulin 3.5 H (1.6-3.3) g/dL Albumin/Globulin Ratio 0.69 L (1.60-3.17) g/dL Microbiology - Last 24 Hours (Table) 04/19/22 10:25 Blood Culture - Preliminary Blood No Growth after 48 hours 04/19/22 09:16 Blood Culture - Preliminary Blood No Growth after 48 hours Assessment and Plan (1) Bimalleolar ankle fracture Narrative/Plan: A well padded splint was reapplied. I don't necessarily see that surgical I and D is required however will discuss with Dr. Stveens and advise. He had elevated WBC on admission and has waxed and waned possibly due to his daily prednisone. He is denying fever currently and recent vitals showed he has been afebrile. Recommend continue IV antibiotics, maintain splint, elevation, pain management and DVT prophylaxis. He is to be nonweightbearing. Further recommendations to follow. Current Visit: Yes Status: Acute Priority: Medium Code(s): S82.843A - DISPLACED BIMALLEOLAR FRACTURE OF UNSP LOWER LEG, INIT SNOMED Code(s): 146338224 Time with Patient: Less than 30
[2022-04-21] MEDS: GABAPENTIN 300 MG CAP PO SCH (20:59)
[2022-04-21] MEDS: LATANOPROST 0.005% OPHTH DROPS 2.5 ML BTL RIGHT EYE SCH (21:00)
[2022-04-21] MEDS: ATORVASTATIN 10 MG TAB PO SCH (21:00)
[2022-04-22] MEDS: HYDROcodone/APAP 5-325MG 1 EACH TAB PO PRN ×3 (02:16→21:28)
[2022-04-22] MEDS: MELATONIN 3 MG TABLET PO PRN ×2 (02:16→21:27)
[2022-04-22 08:02] LABS: Potassium 4.3 mmol/L (3.5-5.1)
[2022-04-22 08:04] LABS: African American GFR (CKD) >90 (>60 ml/min/1.73 sqM); Anion Gap 3 mmol/L; Blood Urea Nitrogen 18 mg/dL (9-20); Calcium 7.7 mg/dL (8.4-10.2); Carbon Dioxide 20 mmol/L (22-30); Chloride 105 mmol/L (98-107); Glucose 83 mg/dL (74-99); Non-African American GFR(CKD) >90 (>60 ml/min/1.73 sqM); Sodium 128 mmol/L (137-145)
[2022-04-22 08:10] LABS: Anisocytosis Slight; Basophils % (A) 0 %; Eosinophils # (A) 0.1 k/uL (0-0.7); Eosinophils % (A) 1 %; HCT 24.6 % (39.0-53.0); HGB 7.8 gm/dL (13.0-17.5); Hypochromasia Moderate; Lymphocytes % (A) 6 %; MCHC 31.7 g/dL (31.0-37.0); MCV 88.4 fL (80.0-100.0); Monocytes # (A) 1.1 k/uL (0-1.0); Monocytes % (A) 7 %; Neutrophils # (A) 14.1 k/uL (1.3-7.7); Neutrophils % (A) 83 %; Platelet Count 548 k/uL (150-450); RBC 2.79 m/uL (4.30-5.90); RDW 16.1 % (11.5-15.5); WBC 16.9 k/uL (3.8-10.6)
[2022-04-22] MEDS: CEFEPIME 2 GM in SODIUM CHLORIDE 0.9% 100 ML IVPB SCH ×2 (08:18→15:14)
[2022-04-22] MEDS: hydrALAZINE HCL 25 MG TAB PO SCH ×3 (08:19→21:29)
[2022-04-22] MEDS: metroNIDAZOLE 500 MG TAB PO SCH ×3 (08:19→21:27)
[2022-04-22] MEDS: carvediloL 6.25 MG TAB PO SCH ×2 (08:19→21:27)
[2022-04-22] MEDS: TIMOLOL 0.5% OPHTH DROPS 5 ML BTL BOTH EYES SCH ×2 (08:19→21:34)
[2022-04-22] MEDS: APIXABAN 5 MG TAB PO SCH ×2 (08:19→21:28)
[2022-04-22] MEDS: predniSONE 5 MG TAB PO SCH (08:19)
[2022-04-22] MEDS: ASPIRIN 81 MG PO SCH (08:19)
[2022-04-22] MEDS: PANTOPRAZOLE 40 MG TABLET PO SCH (08:19)
[2022-04-22] MEDS: DORZOLAMIDE HCL 2% DROPS 10 ML BTL LEFT EYE SCH ×2 (08:20→21:34)
[2022-04-22] MEDS: BRIMONIDINE TARTRATE 0.2% DROPS 5 ML BTL BOTH EYES SCH ×2 (08:20→21:35)
[2022-04-22 09:47] LABS: C Reactive Protein 18.6 mg/dL (<1.0)
--- NOTE | 2022-04-22 11:26 | P.PN ---
Subjective Progress Note Date: 04/22/22 Patient feels less short of breath than yesterday, but overall still feels "shitty." WBC is improving with abx. ID following, appreciate recs. Gen: awake, alert HEENT: normocephalic, atraumatic, good hearing acuity, moist mucous membranes Resp: good air exchange, breathing comfortably with no accessory muscle use, left lower lobe crackles CVS: good distal perfusion x 4, regular rate and rhythm no murmurs GI: soft, NTTP, ND : no SPT, no CVAT, beard catheter not present MSK: no pitting edema, no clubbing Neuro: non-focal, moving all extremities Psych: cooperative, euthymic mood Assessment/plan: Left ankle fracture complicated by Charcot joint and peripheral neuropathy - continue with splint and non weight bearing. - pain control - Ortho recs review: outpatient follow-up - eliquis on hold incase surgery is indicated. - he refuses rehab Pyrexia in the setting of immunospuression and recent chronic osteomyelitis, off abx for 6 weeks Sepsis secondary to suspected Pneumonia - check Covid, Flu, and RSV - CXR ordered and reviewed by myself no interstitial infiltrate, chronic changes - check blood cultures - consult ID - continue cefepime - CT chest for new crackles in the chest Anemia of chronic disease -Hemoglobin has dropped approximately 2 g last 2 months -IV iron X1 per nephrology -Follow CBC Hyponatremia,stable Mildly elevated creatinine at 1.28 not diagnostic of acute kidney injury is creatinine elevation less than 0.3 with baseline at 1.1 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 An and off IV fluids, Sodium tablets. - prednisone, tacrolimus, mycophenolate -nephrology recs appreciated - hold lasix Diastolic congestive heart failure with ejection fraction 50-55% Hypertension Paroxysmal Atrial fibrillation anticoagulated with this - meds reviewed - Lasix on hold. likely home off lasix or with decreased dosing. - resume eliquis - monitor HR Prior diabetes with diabetic neuropathy - Follow blood sugars closely - A1C 5.6 Dyslipidemia -Lovastatin Recent prolonged Left foot osteomyelitis, currently off antibiotics awaiting home med rec to be completed. D/W PT/OT and they will trial the patient with knee scooter in AM to see if he as enough balance to use this at home. DVT prophylaxis: SCDs Discussed with: patient, nursing, Anticipated discharge date: in AM Anticipated discharge place: HH vs SNF A total of 25 minutes was spent on the care of this complex patient more than 50% of the time was spent in counseling and care coordination. Objective - Vital Signs Vital signs: Vital Signs Temp 97.8 F 04/22/22 07:22 Pulse 81 04/22/22 07:22 Resp 16 04/22/22 07:22 BP 125/54 04/22/22 07:22 Pulse Ox 92 L 04/22/22 09:33 FiO2 Intake & Output 04/21/22 04/22/22 04/22/22 18:59 06:59 18:59 Intake Total 700 Output Total 650 Balance 50 Intake: IV 600 ns@50. 600 Intake, IV Titration 100 Amount Cefepime 2 gm In Sodium 100 Chloride 0.9% 100 ml @ 25 mls/hr IVPB Q8HR [facility] Rx# :[id number] Output: Urine 650 Other: Voiding Method Urinal Urinal Urinal # Voids 1 # Bowel Movements 1 - Labs CBC & Chem 7: 04/22/22 04:54 04/22/22 04:54 Labs: Abnormal Lab Results - Last 24 Hours (Table) 04/22/22 04/22/22 Range/Units 04:54 04:54 WBC 16.9 H (3.8-10.6) k/uL RBC 2.79 L (4.30-5.90) m/uL Hgb 7.8 L (13.0-17.5) gm/dL Hct 24.6 L (39.0-53.0) % RDW 16.1 H (11.5-15.5) % Plt Count 548 H (150-450) k/uL Neutrophils # 14.1 H (1.3-7.7) k/uL Monocytes # 1.1 H (0-1.0) k/uL Sodium 128 L (137-145) mmol/L Carbon Dioxide 20 L (22-30) mmol/L Calcium 7.7 L (8.4-10.2) mg/dL C-Reactive Protein 18.6 H (<1.0) mg/dL Microbiology - Last 24 Hours (Table) 04/19/22 10:25 Blood Culture - Preliminary Blood No Growth after 48 hours 04/19/22 09:16 Blood Culture - Preliminary Blood No Growth after 48 hours
--- NOTE | 2022-04-22 17:33 | P.PN ---
Subjective Progress Note Date: 04/22/22 Follow-up for hyponatremia. Sleepy today, denies any complaints. No nausea vomiting or diarrhea. Objective - Vital Signs Vital signs: Vital Signs Temp 98.1 F 04/22/22 13:36 Pulse 77 04/22/22 13:36 Resp 18 04/22/22 13:36 BP 110/76 04/22/22 13:36 Pulse Ox 95 04/22/22 13:36 FiO2 Intake & Output 04/21/22 04/22/22 04/22/22 18:59 06:59 18:59 Intake Total 700 Output Total 650 Balance 50 Weight 54.431 kg Intake: IV 600 ns@50. 600 Intake, IV Titration 100 Amount Cefepime 2 gm In Sodium 100 Chloride 0.9% 100 ml @ 25 mls/hr IVPB Q8HR [facility] Rx# :[id number] Output: Urine 650 Other: Voiding Method Urinal Urinal Urinal # Voids 1 # Bowel Movements 1 - Exam Acute distress S1-S2 heard Lungs clear No edema - Labs CBC & Chem 7: 04/22/22 04:54 04/22/22 04:54 Labs: Abnormal Lab Results - Last 24 Hours (Table) 04/22/22 04/22/22 04/22/22 Range/Units 04:54 04:54 04:54 WBC 16.9 H (3.8-10.6) k/uL RBC 2.79 L (4.30-5.90) m/uL Hgb 7.8 L (13.0-17.5) gm/dL Hct 24.6 L (39.0-53.0) % RDW 16.1 H (11.5-15.5) % Plt Count 548 H (150-450) k/uL Neutrophils # 14.1 H (1.3-7.7) k/uL Monocytes # 1.1 H (0-1.0) k/uL Sodium 128 L (137-145) mmol/L Carbon Dioxide 20 L (22-30) mmol/L Calcium 7.7 L (8.4-10.2) mg/dL C-Reactive Protein 18.6 H (<1.0) mg/dL Procalcitonin 4.37 H (0.02-0.09) ng/mL Microbiology - Last 24 Hours (Table) 04/19/22 10:25 Blood Culture - Preliminary Blood No Growth after 72 hours 04/19/22 09:16 Blood Culture - Preliminary Blood No Growth after 72 hours Assessment and Plan Assessment: #1 acute allograft dysfunction secondary to prerenal physiology resolved. 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 Creatinine around baseline 0.8 MG per DL. #3 hyponatremia suspect SIADH. #4 diastolic CHF #5 left ankle fracture Plan: #1 renal function stable around baseline. #2 Samsca 15 milligrams once, repeat labs in the morning #3 Prograf currently on hold with high levels. Follow-up on the repeat labs. Currently on CellCept and prednisone.
--- NOTE | 2022-04-22 17:52 | US ---
EXAMINATION TYPE: US venous doppler duplex UE RT DATE OF EXAM: 04/22/2022 COMPARISON: None CLINICAL HISTORY: 61-year-old male r/o DVT. Swelling. No redness. Poor historian. TECHNIQUE: Grayscale, color doppler, spectral doppler imaging performed of the deep veins of the upp er extremities. SIDE PERFORMED: Right FINDINGS: Right Arm: There is normal flow, compressibility and vascular waveforms. Negative for DVT. Edema vi sualized. IMPRESSION: No sonographic evidence for DVT within the right upper extremity. Subcutaneous edema is demonstrated.
[2022-04-22] MEDS ORDERED: TOLVAPTAN 15 MG 1/2 TABLET PO ONE (18:00)
--- NOTE | 2022-04-22 21:01 | P.PN ---
Subjective Progress Note Date: 04/22/22 Principal diagnosis: Fever Patient is a 61-year-old male with a past medical history significant for end-stage renal disease patient is status post renal and pancreas transplant on immunosuppressive medication also has history of left foot plantar wound and osteomyelitis for the patient is currently his antibiotic therapy patient presented to hospital for left ankle pain has been diagnosed with a fractured treated medically also spiked a fever and did have elevated white count. On today's evaluation and that is 04/22/2022 patient remains to be afebrile \, the patient is breathing comfortably on room air today, the patient denies having any chest pain he did have some cough but not bringing up any sputum patient denies any nausea no vomiting no abdominal pain and no diarrhea, according to the nursing staff the patient left foot splint was removed did have a small wound on the plantar aspect And no drainage was reported Objective - Vital Signs Vital signs: Vital Signs Temp 97.8 F 04/22/22 07:22 Pulse 81 04/22/22 07:22 Resp 16 04/22/22 07:22 BP 125/54 04/22/22 07:22 Pulse Ox 92 L 04/22/22 09:33 FiO2 Intake & Output 04/21/22 04/22/22 04/22/22 18:59 06:59 18:59 Intake Total 700 Output Total 650 Balance 50 Intake: IV 600 ns@50. 600 Intake, IV Titration 100 Amount Cefepime 2 gm In Sodium 100 Chloride 0.9% 100 ml @ 25 mls/hr IVPB Q8HR [facility] Rx# :[id number] Output: Urine 650 Other: Voiding Method Urinal Urinal Urinal # Voids 1 # Bowel Movements 1 - Exam GENERAL DESCRIPTION: Middle-aged male lying in bed in no distress RESPIRATORY SYSTEM: Unlabored breathing , decreased breath sounds at bases HEART: S1 S2 regular rate and rhythm , ABDOMEN: Soft , mild distention and tenderness EXTREMITIES: No edema feet - Labs CBC & Chem 7: 04/22/22 04:54 04/22/22 04:54 Labs: Abnormal Lab Results - Last 24 Hours (Table) 04/22/22 04/22/22 Range/Units 04:54 04:54 WBC 16.9 H (3.8-10.6) k/uL RBC 2.79 L (4.30-5.90) m/uL Hgb 7.8 L (13.0-17.5) gm/dL Hct 24.6 L (39.0-53.0) % RDW 16.1 H (11.5-15.5) % Plt Count 548 H (150-450) k/uL Neutrophils # 14.1 H (1.3-7.7) k/uL Monocytes # 1.1 H (0-1.0) k/uL Sodium 128 L (137-145) mmol/L Carbon Dioxide 20 L (22-30) mmol/L Calcium 7.7 L (8.4-10.2) mg/dL C-Reactive Protein 18.6 H (<1.0) mg/dL Microbiology - Last 24 Hours (Table) 04/19/22 09:16 Blood Culture - Preliminary Blood No Growth after 72 hours 04/19/22 10:25 Blood Culture - Preliminary Blood No Growth after 48 hours Assessment and Plan (1) Leukocytosis Current Visit: Yes Status: Acute Code(s): D72.829 - ELEVATED WHITE BLOOD CELL COUNT, UNSPECIFIED SNOMED Code(s): 197464329 (2) Fever Current Visit: No Status: Acute Code(s): R50.9 - FEVER, UNSPECIFIED SNOMED Code(s): 329899533 Plan: 1patient with a fever in this patient who do have a history of pancreas and renal transplant on immunosuppressive medication admitted to the hospital with left ankle fracture that is currently being treated conservatively with splint patient do have a history of nonhealing wound on the plantar aspect however currently mentioned no worsening of the wound or any drainage unfortunately I was not able to examine the foot properly because of this pain the patient is on patient currently do not have any obvious focus of infection abdomen has been soft medical examination influenza RSV and COVID testing was negative. 2the patient procalcitonin level has significantly decreased and blood cultures are so far negative. 3 patient did have a [address] chest abdominal pelvis did show some effusion no consolidation or acute normality inside abdominal 4the patient fever has resolved white count is trending down we will continue the patient on cefepime and Flagyl and if continued to improve May consider oral Avelox on discharge Time with Patient: Less than 30
[2022-04-22] MEDS: ATORVASTATIN 10 MG TAB PO SCH (21:27)
[2022-04-22] MEDS: GABAPENTIN 300 MG CAP PO SCH (21:29)
[2022-04-22] MEDS: LATANOPROST 0.005% OPHTH DROPS 2.5 ML BTL RIGHT EYE SCH (21:33)
[2022-04-23] MEDS: CEFEPIME 2 GM in SODIUM CHLORIDE 0.9% 100 ML IVPB SCH ×3 (04:44→16:10)
[2022-04-23] MEDS: metroNIDAZOLE 500 MG TAB PO SCH ×3 (07:42→22:08)
[2022-04-23] MEDS: APIXABAN 5 MG TAB PO SCH ×2 (07:42→22:08)
[2022-04-23] MEDS: ASPIRIN 81 MG PO SCH (07:42)
[2022-04-23] MEDS: carvediloL 6.25 MG TAB PO SCH ×2 (07:42→22:08)
[2022-04-23] MEDS: hydrALAZINE HCL 25 MG TAB PO SCH ×3 (07:42→22:08)
[2022-04-23] MEDS: PANTOPRAZOLE 40 MG TABLET PO SCH (07:42)
[2022-04-23] MEDS: predniSONE 5 MG TAB PO SCH (07:43)
[2022-04-23] MEDS: BRIMONIDINE TARTRATE 0.2% DROPS 5 ML BTL BOTH EYES SCH ×2 (07:44→22:14)
[2022-04-23] MEDS: DORZOLAMIDE HCL 2% DROPS 10 ML BTL LEFT EYE SCH ×2 (07:44→22:13)
[2022-04-23] MEDS: TIMOLOL 0.5% OPHTH DROPS 5 ML BTL BOTH EYES SCH ×2 (07:44→22:13)
[2022-04-23 11:48] LABS: African American GFR (CKD) 114.6 (60.0-200.0); Anion Gap 12.9 mmol/L (10.00-18.00); BUN/Creat Ratio 19.41 Ratio (12.00-20.00); Blood Urea Nitrogen 15.1 mg/dL (9.0-27.0); Calcium 8.8 mg/dL (8.7-10.3); Carbon Dioxide 19.2 mmol/L (20.0-27.5); Non-African American GFR(CKD) 98.9 (60.0-200.0); Potassium 4.7 mmol/L (3.5-5.5)
--- NOTE | 2022-04-23 12:41 | P.PN ---
Subjective Progress Note Date: 04/23/22 Patient feels slightly better than yesterday. Breathing is better with oxygen. Overall would like to increase appetite and mobility. Gen: awake, alert HEENT: normocephalic, atraumatic, good hearing acuity, moist mucous membranes Resp: good air exchange, breathing comfortably with no accessory muscle use, left lower lobe crackles CVS: good distal perfusion x 4, regular rate and rhythm no murmurs GI: soft, NTTP, ND : no SPT, no CVAT, beard catheter not present MSK: no pitting edema, no clubbing Neuro: non-focal, moving all extremities Psych: cooperative, euthymic mood Assessment/plan: Left ankle fracture complicated by Charcot joint and peripheral neuropathy - continue with splint and non weight bearing. - pain control - Ortho recs review: outpatient follow-up - eliquis on hold incase surgery is indicated. - he refuses rehab Pyrexia in the setting of immunospuression and recent chronic osteomyelitis, off abx for 6 weeks Sepsis secondary to suspected Pneumonia - check Covid, Flu, and RSV - CXR ordered and reviewed by myself no interstitial infiltrate, chronic changes - check blood cultures - consult ID - continue cefepime - CT chest for new crackles in the chest Anemia of chronic disease -Hemoglobin has dropped approximately 2 g last 2 months -IV iron X1 per nephrology -Follow CBC Hyponatremia,stable Mildly elevated creatinine at 1.28 not diagnostic of acute kidney injury is creatinine elevation less than 0.3 with baseline at 1.1 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 An and off IV fluids, Sodium tablets. - prednisone, tacrolimus, mycophenolate -nephrology recs appreciated - hold lasix Diastolic congestive heart failure with ejection fraction 50-55% Hypertension Paroxysmal Atrial fibrillation anticoagulated with this - meds reviewed - Lasix on hold. likely home off lasix or with decreased dosing. - resume eliquis - monitor HR Prior diabetes with diabetic neuropathy - Follow blood sugars closely - A1C 5.6 Dyslipidemia -Lovastatin Recent prolonged Left foot osteomyelitis, currently off antibiotics awaiting home med rec to be completed. D/W PT/OT and they will trial the patient with knee scooter in AM to see if he as enough balance to use this at home. DVT prophylaxis: SCDs Discussed with: patient, nursing, Anticipated discharge date: in AM Anticipated discharge place: vs SNF A total of 25 minutes was spent on the care of this complex patient more than 50% of the time was spent in counseling and care coordination. Objective - Vital Signs Vital signs: Vital Signs Temp 98.3 F 04/23/22 07:31 Pulse 69 04/23/22 07:31 Resp 18 04/23/22 07:31 BP 144/63 04/23/22 07:31 Pulse Ox 96 04/23/22 08:00 FiO2 Intake & Output 04/22/22 04/23/22 04/23/22 18:59 06:59 18:59 Output Total 1650 725 Balance -1650 -725 Weight 54.431 kg Output: Urine 1650 725 Other: Voiding Method Urinal Urinal # Voids 2 1 - Labs CBC & Chem 7: 04/22/22 04:54 04/23/22 04:44 Labs: Abnormal Lab Results - Last 24 Hours (Table) 04/22/22 04/23/22 Range/Units 04:54 04:44 Carbon Dioxide 19.2 L (20.0-27.5) mmol/L Procalcitonin 4.37 H (0.02-0.09) ng/mL Microbiology - Last 24 Hours (Table) 04/19/22 09:16 Blood Culture - Preliminary Blood No Growth after 96 hours 04/19/22 10:25 Blood Culture - Preliminary Blood No Growth after 72 hours
--- NOTE | 2022-04-23 14:14 | P.PN ---
Subjective Progress Note Date: 04/23/22 Principal diagnosis: Fever Patient is a 61-year-old male with a past medical history for end- stage renal disease patient is status post renal and pancreas transplant on i mmunosuppressive medication also has history of left foot plantar wound and osteomyelitis for the patient is currently his antibiotic therapy patient presented to hospital for left ankle pain has been diagnosed with a fractured treated medically also spiked a fever and did have elevated white count. On today's evaluation and that is 04/23/2022 patient continues to be afebrile, the patient is breathing comfortably on 3 L nasal cannula, the patient denies having any chest pain he did have some cough but not bringing up any sputum , patient denies any nausea no vomiting no abdominal pain and no diarrhea, Objective - Vital Signs Vital signs: Vital Signs Temp 98.3 F 04/23/22 07:31 Pulse 69 04/23/22 07:31 Resp 18 04/23/22 07:31 BP 144/63 04/23/22 07:31 Pulse Ox 96 04/23/22 08:00 FiO2 Intake & Output 04/22/22 04/23/22 04/23/22 18:59 06:59 18:59 Output Total 1650 725 Balance -1650 -725 Weight 54.431 kg Output: Urine 1650 725 Other: Voiding Method Urinal Urinal # Voids 2 1 - Exam GENERAL DESCRIPTION: Middle-aged male lying in bed in no distress RESPIRATORY SYSTEM: Unlabored breathing , decreased breath sounds at bases HEART: S1 S2 regular rate and rhythm , ABDOMEN: Soft , mild distention and tenderness EXTREMITIES: No edema feet - Labs CBC & Chem 7: 04/22/22 04:54 04/23/22 04:44 Labs: Abnormal Lab Results - Last 24 Hours (Table) 04/22/22 04/23/22 Range/Units 04:54 04:44 Carbon Dioxide 19.2 L (20.0-27.5) mmol/L Procalcitonin 4.37 H (0.02-0.09) ng/mL Microbiology - Last 24 Hours (Table) 04/19/22 09:16 Blood Culture - Preliminary Blood No Growth after 96 hours 04/19/22 10:25 Blood Culture - Preliminary Blood No Growth after 72 hours Assessment and Plan (1) Leukocytosis Current Visit: Yes Status: Acute Code(s): D72.829 - ELEVATED WHITE BLOOD CELL COUNT, UNSPECIFIED SNOMED Code(s): 077311566 (2) Fever Current Visit: No Status: Acute Code(s): R50.9 - FEVER, UNSPECIFIED SNOMED Code(s): 461224583 Plan: 1patient with a fever in this patient who do have a history of pancreas and renal transplant on immunosuppressive medication admitted to the hospital with left ankle fracture that is currently being treated conservatively with splint patient do have a history of nonhealing wound on the plantar aspect however currently mentioned no worsening of the wound or any drainage unfortunately I was not able to examine the foot properly because of this pain the patient is on patient currently do not have any obvious focus of infection abdomen has been soft medical examination influenza RSV and COVID testing was negative. 2the patient procalcitonin level has significantly decreased and blood cultures are so far negative. [address] chest abdominal pelvis did show some effusion no consolidation or acute normality inside abdominal 4the patient fever has resolved white count is trending down, however no CBC was today we will ordered for tomorrow we will continue the patient on cefepime and Flagyl and if the patient continued to improve May consider oral Avelox on discharge Time with Patient: Less than 30
--- NOTE | 2022-04-23 16:15 | P.PN ---
Subjective Progress Note Date: 04/23/22 Follow-up for hyponatremia. No nausea vomiting or diarrhea. Objective - Vital Signs Vital signs: Vital Signs Temp 97.8 F 04/23/22 13:38 Pulse 79 04/23/22 13:38 Resp 18 04/23/22 13:38 BP 142/64 04/23/22 13:38 Pulse Ox 95 04/23/22 13:38 FiO2 Intake & Output 04/22/22 04/23/22 04/23/22 18:59 06:59 18:59 Output Total 1650 1225 Balance -1650 -1225 Weight 54.431 kg Output: Urine 1650 1225 Other: Voiding Method Urinal Urinal # Voids 2 1 - Exam Acute distress S1-S2 heard Lungs clear No edema - Labs CBC & Chem 7: 04/22/22 04:54 04/23/22 04:44 Labs: Abnormal Lab Results - Last 24 Hours (Table) 04/23/22 Range/Units 04:44 Carbon Dioxide 19.2 L (20.0-27.5) mmol/L Microbiology - Last 24 Hours (Table) 04/19/22 10:25 Blood Culture - Preliminary Blood No Growth after 96 hours 04/19/22 09:16 Blood Culture - Preliminary Blood No Growth after 96 hours Assessment and Plan Assessment: #1 acute allograft dysfunction secondary to prerenal physiology resolved. 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 Creatinine around baseline 0.8 MG per DL. #3 hyponatremia suspect SIADH. #4 diastolic CHF #5 left ankle fracture Plan: #1 renal function stable around baseline. #2 status post Samsca 15 milligrams once, sodium back to normal. #3 Prograf currently on hold with high levels. Follow-up on the repeat labs, pending. Currently on CellCept and prednisone.
[2022-04-23] MEDS: HYDROcodone/APAP 5-325MG 1 EACH TAB PO PRN (17:02)
[2022-04-23] MEDS: GABAPENTIN 300 MG CAP PO SCH (22:08)
[2022-04-23] MEDS: ATORVASTATIN 10 MG TAB PO SCH (22:08)
[2022-04-23] MEDS: LATANOPROST 0.005% OPHTH DROPS 2.5 ML BTL RIGHT EYE SCH (22:14)
[2022-04-24] MEDS: CEFEPIME 2 GM in SODIUM CHLORIDE 0.9% 100 ML IVPB SCH ×4 (00:28→23:47)
[2022-04-24] MEDS: HYDROcodone/APAP 5-325MG 1 EACH TAB PO PRN ×2 (09:36→15:30)
[2022-04-24] MEDS: predniSONE 5 MG TAB PO SCH (09:37)
[2022-04-24] MEDS: carvediloL 6.25 MG TAB PO SCH ×2 (09:37→21:46)
[2022-04-24] MEDS: hydrALAZINE HCL 25 MG TAB PO SCH ×3 (09:37→21:46)
[2022-04-24] MEDS: PANTOPRAZOLE 40 MG TABLET PO SCH (09:37)
[2022-04-24] MEDS: ASPIRIN 81 MG PO SCH (09:37)
[2022-04-24] MEDS: APIXABAN 5 MG TAB PO SCH ×2 (09:37→21:46)
[2022-04-24] MEDS: metroNIDAZOLE 500 MG TAB PO SCH ×3 (09:37→21:46)
[2022-04-24] MEDS: DORZOLAMIDE HCL 2% DROPS 10 ML BTL LEFT EYE SCH ×2 (09:38→21:47)
[2022-04-24] MEDS: TIMOLOL 0.5% OPHTH DROPS 5 ML BTL BOTH EYES SCH ×2 (09:39→21:47)
[2022-04-24] MEDS: BRIMONIDINE TARTRATE 0.2% DROPS 5 ML BTL BOTH EYES SCH ×2 (09:39→21:47)
[2022-04-24 10:57] LABS: Anisocytosis Slight; Basophils # (A) 0.1 k/uL (0-0.2); Basophils % (A) 1 %; Eosinophils # (A) 0.3 k/uL (0-0.7); Eosinophils % (A) 2 %; HGB 8.7 gm/dL (13.0-17.5); Hypochromasia Moderate; Lymphocytes # (A) 1.1 k/uL (1.0-4.8); Lymphocytes % (A) 7 %; MCH 28.1 pg (25.0-35.0); MCHC 32.1 g/dL (31.0-37.0); MCV 87.5 fL (80.0-100.0); Mean Platelet Volume 8.2; Monocytes # (A) 0.7 k/uL (0-1.0); Monocytes % (A) 4 %; Neutrophils # (A) 13.4 k/uL (1.3-7.7); Neutrophils % (A) 82 %; Platelet Count 667 k/uL (150-450); RBC 3.09 m/uL (4.30-5.90); RDW 16.9 % (11.5-15.5); WBC 16.3 k/uL (3.8-10.6)
[2022-04-24 11:07] LABS: African American GFR (CKD) >90 (>60 ml/min/1.73 sqM); Anion Gap 6 mmol/L; Band Neutrophils % 1 %; Blood Urea Nitrogen 13 mg/dL (9-20); Calcium 8.6 mg/dL (8.4-10.2); Carbon Dioxide 19 mmol/L (22-30); Chloride 108 mmol/L (98-107); Eosinophils # (M) 0.49 k/uL (0-0.7); Glucose 142 mg/dL (74-99); Lymphocytes # (M) 1.14 k/uL (1.0-4.8); Magnesium 1.8 mg/dL (1.6-2.3); Metamyelocytes # (M) 0.33 k/uL (0); Metamyelocytes % 2 %; Monocytes # (M) 1.63 k/uL (0-1.0); Neutrophils % (M) 77 %; Non-African American GFR(CKD) >90 (>60 ml/min/1.73 sqM); Nucleated Red Blood Cells 0 /100 WBC (0-0); Polychromasia Present; Sodium 133 mmol/L (137-145); Target Cells Present; Total Cells Counted 100
[2022-04-24 11:20] LABS: C Reactive Protein 16.9 mg/dL (<1.0)
--- NOTE | 2022-04-24 12:56 | P.PN ---
Subjective Progress Note Date: 04/24/22 Doing better today, says he feels closer to going home. Gen: awake, alert HEENT: normocephalic, atraumatic, good hearing acuity, moist mucous membranes Resp: good air exchange, breathing comfortably with no accessory muscle use, left lower lobe crackles CVS: good distal perfusion x 4, regular rate and rhythm no murmurs GI: soft, NTTP, ND : no SPT, no CVAT, beard catheter not present MSK: no pitting edema, no clubbing Neuro: non-focal, moving all extremities Psych: cooperative, euthymic mood Assessment/plan: Left ankle fracture complicated by Charcot joint and peripheral neuropathy - continue with splint and non weight bearing. - pain control - Ortho recs review: outpatient follow-up - eliquis on hold incase surgery is indicated. - he refuses rehab Pyrexia in the setting of immunospuression and recent chronic osteomyelitis, off abx for 6 weeks Sepsis secondary to suspected Pneumonia - check Covid, Flu, and RSV - CXR ordered and reviewed by myself no interstitial infiltrate, chronic changes - check blood cultures - consult ID - continue cefepime - CT chest for new crackles in the chest Anemia of chronic disease -Hemoglobin has dropped approximately 2 g last 2 months -IV iron X1 per nephrology -Follow CBC Hyponatremia,stable Mildly elevated creatinine at 1.28 not diagnostic of acute kidney injury is creatinine elevation less than 0.3 with baseline at 1.1 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 An and off IV fluids, Sodium tablets. - prednisone, tacrolimus, mycophenolate -nephrology recs appreciated - hold lasix Diastolic congestive heart failure with ejection fraction 50-55% Hypertension Paroxysmal Atrial fibrillation anticoagulated with this - meds reviewed - Lasix on hold. likely home off lasix or with decreased dosing. - resume eliquis - monitor HR Prior diabetes with diabetic neuropathy - Follow blood sugars closely - A1C 5.6 Dyslipidemia -Lovastatin Recent prolonged Left foot osteomyelitis, currently off antibiotics awaiting home med rec to be completed. D/W PT/OT and they will trial the patient with knee scooter in AM to see if he as enough balance to use this at home. DVT prophylaxis: SCDs Discussed with: patient, nursing, Anticipated discharge date: in AM Anticipated discharge place: HH vs SNF A total of 25 minutes was spent on the care of this complex patient more than 50% of the time was spent in counseling and care coordination. Objective - Vital Signs Vital signs: Vital Signs Temp 98.7 F 04/24/22 07:12 Pulse 84 04/24/22 07:12 Resp 17 04/24/22 07:12 BP 153/67 04/24/22 07:12 Pulse Ox 97 04/24/22 08:40 FiO2 Intake & Output 04/23/22 04/24/22 04/24/22 18:59 06:59 18:59 Intake Total 200 590 Output Total 2125 600 Balance -1924 Intake: Intake, IV Titration 200 Amount Cefepime 2 gm In Sodium 200 Chloride 0.9% 100 ml @ 25 mls/hr IVPB Q8HR [facility] Rx# :[id number] Oral 590 Output: Urine 2125 600 Stool 0 Other: Voiding Method Urinal Urinal # Voids 1 - Labs CBC & Chem 7: 04/24/22 10:33 04/24/22 10:33 Labs: Abnormal Lab Results - Last 24 Hours (Table) 04/24/22 04/24/22 Range/Units 10:33 10:33 WBC 16.3 H (3.8-10.6) k/uL RBC 3.09 L (4.30-5.90) m/uL Hgb 8.7 L (13.0-17.5) gm/dL Hct 27.0 L (39.0-53.0) % RDW 16.9 H (11.5-15.5) % Plt Count 667 H (150-450) k/uL Neutrophils # 13.4 H (1.3-7.7) k/uL Neutrophils # (Manual) 12.70 H (1.3-7.7) k/uL Monocytes # (Manual) 1.63 H (0-1.0) k/uL Metamyelocytes # (Man) 0.33 H (0) k/uL Sodium 133 L (137-145) mmol/L Chloride 108 H (98-107) mmol/L Carbon Dioxide 19 L (22-30) mmol/L Creatinine 0.65 L (0.66-1.25) mg/dL Glucose 142 H (74-99) mg/dL C-Reactive Protein 16.9 H (<1.0) mg/dL Microbiology - Last 24 Hours (Table) 04/19/22 09:16 Blood Culture - Preliminary Blood No Growth after 120 hours 04/19/22 10:25 Blood Culture - Preliminary Blood No Growth after 96 hours
--- NOTE | 2022-04-24 13:46 | P.PN ---
Subjective Progress Note Date: 04/24/22 Principal diagnosis: Visit 61-year-old male with simultaneous kidney pancreas transplant in 1997. Came in because of pain in his left foot after he twisted it. Currently it is in a cast. X-ray shows acute fracture of the ankle and orthopedics is following him up. No surgeries plan pain control Also known with atrial fibrillation heart failure peripheral vascular disease. Currently he complains of pain but is controlled. Appetite is fair. No nausea vomiting diarrhea chest pain shortness of breath Objective - Vital Signs Vital signs: Vital Signs Temp 98 F 04/24/22 12:28 Pulse 74 04/24/22 12:28 Resp 18 04/24/22 12:28 BP 143/67 04/24/22 12:28 Pulse Ox 95 04/24/22 12:28 FiO2 Intake & Output 04/23/22 04/24/22 04/24/22 18:59 06:59 18:59 Intake Total 200 590 Output Total 2125 600 Balance -1924 Intake: Intake, IV Titration 200 Amount Cefepime 2 gm In Sodium 200 Chloride 0.9% 100 ml @ 25 mls/hr IVPB Q8HR [facility] Rx# :[id number] Oral 590 Output: Urine 2125 600 Stool 0 Other: Voiding Method Urinal Urinal # Voids 1 On examination awake alert but generalized weakness HEENT exam no JVP noted no facial asymmetry Lungs are clear to auscultation good air entry bilaterally Heart sounds unremarkable Abdomen soft nontender Extremity exam minimal edema Neurologically awake alert oriented Left foot is in the bandages with Kian wrap - Labs CBC & Chem 7: 04/24/22 10:33 04/24/22 10:33 Labs: Abnormal Lab Results - Last 24 Hours (Table) 04/24/22 04/24/22 Range/Units 10:33 10:33 WBC 16.3 H (3.8-10.6) k/uL RBC 3.09 L (4.30-5.90) m/uL Hgb 8.7 L (13.0-17.5) gm/dL Hct 27.0 L (39.0-53.0) % RDW 16.9 H (11.5-15.5) % Plt Count 667 H (150-450) k/uL Neutrophils # 13.4 H (1.3-7.7) k/uL Neutrophils # (Manual) 12.70 H (1.3-7.7) k/uL Monocytes # (Manual) 1.63 H (0-1.0) k/uL Metamyelocytes # (Man) 0.33 H (0) k/uL Sodium 133 L (137-145) mmol/L Chloride 108 H (98-107) mmol/L Carbon Dioxide 19 L (22-30) mmol/L Creatinine 0.65 L (0.66-1.25) mg/dL Glucose 142 H (74-99) mg/dL C-Reactive Protein 16.9 H (<1.0) mg/dL Microbiology - Last 24 Hours (Table) 04/19/22 10:25 Blood Culture - Preliminary Blood No Growth after 120 hours 04/19/22 09:16 Blood Culture - Preliminary Blood No Growth after 120 hours Assessment and Plan Assessment: Impression 1. Hyponatremia secondary to pain improved to 133 today 2. Status post simultaneous kidney pancreas transplant with stable renal function glucose is within normal range, except occasionally is in the 140s. Currently on CellCept 500 twice a day and 3. History of sprain and fracture of the left ankle under orthopedic care no surgery is plan 4. Anemia hemoglobin is 7.8 yesterday is 8.7 today, significant drop in hemoglobin from 04/11/2022 when it was 12.7 cause is not clear 5. Afebrile but with high white cell count, on prednisone 5 mg daily off of Prograf because level was 17.8 on 04/18/2022 Recommendation 1. Reintroduce Prograf as it has been discontinued and started 1 mg twice a day and redo labs in about 3 days
--- NOTE | 2022-04-24 15:43 | P.PN ---
Subjective Progress Note Date: 04/24/22 Principal diagnosis: Fever Patient is a 61-year-old male with a past medical history for end- stage renal disease patient is status post renal and pancreas transplant on i mmunosuppressive medication also has history of left foot plantar wound and osteomyelitis for the patient is currently his antibiotic therapy patient presented to hospital for left ankle pain has been diagnosed with a fractured treated medically also spiked a fever and did have elevated white count. On today's evaluation and that is 04/24/2022 patient remains to be afebrile, the patient is breathing comfortably on room air this afternoon, the patient denies having any chest pain he did have some cough but mostly dry in nature , patient denies any nausea no vomiting no abdominal pain and no diarrhea, pain to the left ankle controlled Objective - Vital Signs Vital signs: Vital Signs Temp 98.7 F 04/24/22 07:12 Pulse 84 04/24/22 07:12 Resp 17 04/24/22 07:12 BP 153/67 04/24/22 07:12 Pulse Ox 97 04/24/22 08:40 FiO2 Intake & Output 04/23/22 04/24/22 04/24/22 18:59 06:59 18:59 Intake Total 200 590 Output Total 2125 600 Balance -1924 Intake: Intake, IV Titration 200 Amount Cefepime 2 gm In Sodium 200 Chloride 0.9% 100 ml @ 25 mls/hr IVPB Q8HR [facility] Rx# :[id number] Oral 590 Output: Urine 2125 600 Stool 0 Other: Voiding Method Urinal Urinal # Voids 1 - Exam GENERAL DESCRIPTION: Middle-aged male lying in bed in no distress RESPIRATORY SYSTEM: Unlabored breathing , decreased breath sounds at bases HEART: S1 S2 regular rate and rhythm , ABDOMEN: Soft , mild distention and tenderness EXTREMITIES: No edema feet - Labs CBC & Chem 7: 04/24/22 10:33 04/24/22 10:33 Labs: Abnormal Lab Results - Last 24 Hours (Table) 04/24/22 04/24/22 Range/Units 10:33 10:33 WBC 16.3 H (3.8-10.6) k/uL RBC 3.09 L (4.30-5.90) m/uL Hgb 8.7 L (13.0-17.5) gm/dL Hct 27.0 L (39.0-53.0) % RDW 16.9 H (11.5-15.5) % Plt Count 667 H (150-450) k/uL Neutrophils # 13.4 H (1.3-7.7) k/uL Neutrophils # (Manual) 12.70 H (1.3-7.7) k/uL Monocytes # (Manual) 1.63 H (0-1.0) k/uL Metamyelocytes # (Man) 0.33 H (0) k/uL Sodium 133 L (137-145) mmol/L Chloride 108 H (98-107) mmol/L Carbon Dioxide 19 L (22-30) mmol/L Creatinine 0.65 L (0.66-1.25) mg/dL Glucose 142 H (74-99) mg/dL C-Reactive Protein 16.9 H (<1.0) mg/dL Microbiology - Last 24 Hours (Table) 04/19/22 10:25 Blood Culture - Preliminary Blood No Growth after 96 hours 04/19/22 09:16 Blood Culture - Preliminary Blood No Growth after 96 hours Assessment and Plan (1) Leukocytosis Current Visit: Yes Status: Acute Code(s): D72.829 - ELEVATED WHITE BLOOD CELL COUNT, UNSPECIFIED SNOMED Code(s): 805616145 (2) Fever Current Visit: No Status: Acute Code(s): R50.9 - FEVER, UNSPECIFIED SNOMED Code(s): 679256139 Plan: 1patient with a fever in this patient who do have a history of pancreas and renal transplant on immunosuppressive medication admitted to the hospital with left ankle fracture that is currently being treated conservatively with splint patient do have a history of nonhealing wound on the plantar aspect however currently mentioned no worsening of the wound or any drainage unfortunately I was not able to examine the foot properly because of this pain the patient is on patient currently do not have any obvious focus of infection abdomen has been soft medical examination influenza RSV and COVID testing was negative. 2the patient procalcitonin level has significantly decreased and blood cultures are so far negative. [address] chest abdominal pelvis did show some effusion no consolidation or acute normality inside abdominal 4the patient fever has resolved white count is trending down, patient to continue on cefepime and Flagyl recheck extremity markers with a.m. lab Time with Patient: Less than 30
[2022-04-24] MEDS: ATORVASTATIN 10 MG TAB PO SCH (21:46)
[2022-04-24] MEDS: GABAPENTIN 300 MG CAP PO SCH (21:46)
[2022-04-24] MEDS: TACROLIMUS 1 MG CAP PO SCH (21:47)
[2022-04-24] MEDS: LATANOPROST 0.005% OPHTH DROPS 2.5 ML BTL RIGHT EYE SCH (21:47)
[2022-04-25 09:26] LABS: Basophils # (A) 0.07 X 10*3/uL (0.00-0.10); Basophils % (A) 0.4 %; Eosinophils # (A) 0.16 X 10*3/uL (0.04-0.35); Eosinophils % (A) 0.9 %; HCT 25.8 % (39.6-50.0); HGB 8.4 g/dL (13.0-17.0); Lymphocytes # (A) 1.51 X 10*3/uL (0.90-5.00); Lymphocytes % (A) 8.1 %; MCH 27.4 pg (27.0-32.0); MCHC 32.6 g/dL (32.0-37.0); Mean Platelet Volume 9.1 fL (9.5-12.2); Monocytes # (A) 1.39 X 10*3/uL (0.20-1.00); Monocytes % (A) 7.4 %; NRBC Per 100 WBC 0.2 /100 WBCS (0.0-0.0); Neutrophils # (A) 15.21 X 10*3/uL (1.80-7.70); Neutrophils % (A) 81.2 %; Platelet Count 673 X 10*3/uL (140-440); RBC 3.07 X 10*6/uL (4.40-5.60); RDW 16.9 % (11.5-14.5); WBC 18.72 X 10*3/uL (4.50-10.00)
[2022-04-25 09:29] LABS: African American GFR (CKD) 119.7 (60.0-200.0); Anion Gap 9.2 mmol/L (10.00-18.00); BUN/Creat Ratio 12.86 Ratio (12.00-20.00); C Reactive Protein 14.7 mg/dL (0.00-0.80); Calcium 8.6 mg/dL (8.7-10.3); Carbon Dioxide 19.8 mmol/L (20.0-27.5); Magnesium 1.5 mg/dL (1.5-2.4); Non-African American GFR(CKD) 103.3 (60.0-200.0); Potassium 4.1 mmol/L (3.5-5.5)
[2022-04-25] MEDS: metroNIDAZOLE 500 MG TAB PO SCH ×3 (09:29→21:31)
[2022-04-25] MEDS: hydrALAZINE HCL 25 MG TAB PO SCH ×3 (09:29→21:32)
[2022-04-25] MEDS: CEFEPIME 2 GM in SODIUM CHLORIDE 0.9% 100 ML IVPB SCH ×3 (09:30→23:46)
[2022-04-25] MEDS: PANTOPRAZOLE 40 MG TABLET PO SCH (09:30)
[2022-04-25] MEDS: APIXABAN 5 MG TAB PO SCH ×2 (09:30→21:32)
[2022-04-25] MEDS: carvediloL 6.25 MG TAB PO SCH ×2 (09:30→21:31)
[2022-04-25] MEDS: ASPIRIN 81 MG PO SCH (09:30)
[2022-04-25] MEDS: predniSONE 5 MG TAB PO SCH (09:31)
[2022-04-25] MEDS: TACROLIMUS 1 MG CAP PO SCH ×2 (09:31→21:31)
[2022-04-25] MEDS: TIMOLOL 0.5% OPHTH DROPS 5 ML BTL BOTH EYES SCH ×2 (09:32→21:32)
[2022-04-25] MEDS: BRIMONIDINE TARTRATE 0.2% DROPS 5 ML BTL BOTH EYES SCH ×2 (09:32→21:32)
[2022-04-25] MEDS: DORZOLAMIDE HCL 2% DROPS 10 ML BTL LEFT EYE SCH ×2 (09:32→21:32)
[2022-04-25] MEDS: DARBEPOETIN ALFA 40 MCG/0.4 ML SYRINGE SQ SCH (12:01)
--- NOTE | 2022-04-25 12:32 | P.PN ---
Subjective Progress Note Date: 04/25/22 Doing better today. PC down to 1.14. Source of infx does not appear to be heel ulcer, possibly was pneumonia. Plan on discharging tomorrow with 1 more week of moxifloxacin after discussion with ID. Pt will need wound care, home scooter, home PT/OT as well. Okay to resume lasix on discharge. Discharge delayed due to lack of CM today. Gen: awake, alert HEENT: normocephalic, atraumatic, good hearing acuity, moist mucous membranes Resp: good air exchange, breathing comfortably with no accessory muscle use, left lower lobe crackles CVS: good distal perfusion x 4, regular rate and rhythm no murmurs GI: soft, NTTP, ND : no SPT, no CVAT, beard catheter not present MSK: no pitting edema, no clubbing Neuro: non-focal, moving all extremities Psych: cooperative, euthymic mood Assessment/plan: Left ankle fracture complicated by Charcot joint and peripheral neuropathy - continue with splint and non weight bearing. - pain control - Ortho recs review: outpatient follow-up - eliquis on hold incase surgery is indicated. - he refuses rehab Pyrexia in the setting of immunospuression and recent chronic osteomyelitis, off abx for 6 weeks Sepsis secondary to suspected Pneumonia - check Covid, Flu, and RSV - CXR ordered and reviewed by myself no interstitial infiltrate, chronic changes - check blood cultures - consult ID - continue cefepime - CT chest for new crackles in the chest Anemia of chronic disease -Hemoglobin has dropped approximately 2 g last 2 months -IV iron X1 per nephrology -Follow CBC Hyponatremia,stable Mildly elevated creatinine at 1.28 not diagnostic of acute kidney injury is creatinine elevation less than 0.3 with baseline at 1.1 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 An and off IV fluids, Sodium tablets. - prednisone, tacrolimus, mycophenolate -nephrology recs appreciated - hold lasix Diastolic congestive heart failure with ejection fraction 50-55% Hypertension Paroxysmal Atrial fibrillation anticoagulated with this - meds reviewed - Lasix on hold. likely home off lasix or with decreased dosing. - resume eliquis - monitor HR Prior diabetes with diabetic neuropathy - Follow blood sugars closely - A1C 5.6 Dyslipidemia -Lovastatin Recent prolonged Left foot osteomyelitis, currently off antibiotics awaiting home med rec to be completed. D/W PT/OT and they will trial the patient with knee scooter in AM to see if he as enough balance to use this at home. DVT prophylaxis: SCDs Discussed with: patient, nursing, Anticipated discharge date: in AM Anticipated discharge place: vs SNF Objective - Vital Signs Vital signs: Vital Signs Temp 99.4 F 04/25/22 07:20 Pulse 86 04/25/22 07:20 Resp 18 04/25/22 07:20 BP 159/53 04/25/22 07:20 Pulse Ox 93 L 04/25/22 07:20 FiO2 Intake & Output 04/24/22 04/25/22 04/25/22 18:59 06:59 18:59 Intake Total 600 590 Output Total 0 300 550 Balance 600 290 -550 Intake: IV 600 ns@50. 600 Oral 590 Output: Urine 300 550 Stool 0 0 Other: Voiding Method Urinal Urinal # Voids 1 1 # Bowel Movements 1 1 - Labs CBC & Chem 7: 04/25/22 05:49 04/25/22 05:49 Labs: Abnormal Lab Results - Last 24 Hours (Table) 04/25/22 04/25/22 04/25/22 Range/Units 05:49 05:49 05:49 WBC 18.72 H (4.50-10.00) X 10*3/uL RBC 3.07 L (4.40-5.60) X 10*6/uL Hgb 8.4 L (13.0-17.0) g/dL Hct 25.8 L (39.6-50.0) % RDW 16.9 H (11.5-14.5) % Plt Count 673 H (140-440) X 10*3/uL MPV 9.1 L (9.5-12.2) fL Absolute Nucleated RBC 0.04 H (0.00-0.00) X 10*3/uL Immature Gran # 0.38 H (0.00-0.04) X 10*3/uL Neutrophils # 15.21 H (1.80-7.70) X 10*3/uL Monocytes # 1.39 H (0.20-1.00) X 10*3/uL NRBC/100 WBC Diff 0.2 H (0.0-0.0) /100 WBCS Sodium 132 L (135-145) mmol/L Carbon Dioxide 19.8 L (20.0-27.5) mmol/L Anion Gap 9.20 L (10.00-18.00) mmol/L Calcium 8.6 L (8.7-10.3) mg/dL C-Reactive Protein 14.70 H (0.00-0.80) mg/dL Procalcitonin 1.14 H (0.02-0.09) ng/mL Microbiology - Last 24 Hours (Table) 04/19/22 09:16 Blood Culture - Final Blood No Growth after 144 hours 04/19/22 10:25 Blood Culture - Preliminary Blood No Growth after 120 hours
--- NOTE | 2022-04-25 12:37 | P.PN ---
Subjective Progress Note Date: 04/25/22 Principal diagnosis: Visit 61-year-old male with simultaneous kidney pancreas transplant in 1997. Came in because of pain in his left foot after he twisted it. Currently it is in a cast. X-ray shows acute fracture of the ankle and orthopedics is following him up. No surgeries plan pain control Also known with atrial fibrillation heart failure peripheral vascular disease. Currently he complains of pain but is controlled. Appetite is fair. No nausea vomiting diarrhea chest pain shortness of breath Objective - Vital Signs Vital signs: Vital Signs Temp 99.4 F 04/25/22 07:20 Pulse 86 04/25/22 07:20 Resp 18 04/25/22 07:20 BP 159/53 04/25/22 07:20 Pulse Ox 93 L 04/25/22 07:20 FiO2 Intake & Output 04/24/22 04/25/22 04/25/22 18:59 06:59 18:59 Intake Total 600 590 Output Total 0 300 550 Balance 600 290 -550 Intake: IV 600 ns@50. 600 Oral 590 Output: Urine 300 550 Stool 0 0 Other: Voiding Method Urinal Urinal # Voids 1 1 # Bowel Movements 1 1 On examination awake alert but generalized weakness HEENT exam no JVP noted no facial asymmetry Lungs are clear to auscultation good air entry bilaterally Heart sounds unremarkable Abdomen soft nontender Extremity exam minimal edema Neurologically awake alert oriented Left foot is in the bandages with Kian wrap - Labs CBC & Chem 7: 04/25/22 05:49 04/25/22 05:49 Labs: Abnormal Lab Results - Last 24 Hours (Table) 04/25/22 04/25/22 04/25/22 Range/Units 05:49 05:49 05:49 WBC 18.72 H (4.50-10.00) X 10*3/uL RBC 3.07 L (4.40-5.60) X 10*6/uL Hgb 8.4 L (13.0-17.0) g/dL Hct 25.8 L (39.6-50.0) % RDW 16.9 H (11.5-14.5) % Plt Count 673 H (140-440) X 10*3/uL MPV 9.1 L (9.5-12.2) fL Absolute Nucleated RBC 0.04 H (0.00-0.00) X 10*3/uL Immature Gran # 0.38 H (0.00-0.04) X 10*3/uL Neutrophils # 15.21 H (1.80-7.70) X 10*3/uL Monocytes # 1.39 H (0.20-1.00) X 10*3/uL NRBC/100 WBC Diff 0.2 H (0.0-0.0) /100 WBCS Sodium 132 L (135-145) mmol/L Carbon Dioxide 19.8 L (20.0-27.5) mmol/L Anion Gap 9.20 L (10.00-18.00) mmol/L Calcium 8.6 L (8.7-10.3) mg/dL C-Reactive Protein 14.70 H (0.00-0.80) mg/dL Procalcitonin 1.14 H (0.02-0.09) ng/mL Microbiology - Last 24 Hours (Table) 04/19/22 09:16 Blood Culture - Final Blood No Growth after 144 hours 04/19/22 10:25 Blood Culture - Preliminary Blood No Growth after 120 hours Assessment and Plan Assessment: Impression 1. Hyponatremia secondary to pain improved to 132 today 2. Status post simultaneous kidney pancreas transplant with stable renal function glucose is within normal range, except occasionally is in the 140s. Currently on CellCept 500 twice a day and Prograf 1 mg twice a day 3. History of sprain and fracture of the left ankle under orthopedic care no surgery is plan 4. Anemia hemoglobin is 7.8 yesterday is 8.7 > 8.4 today, significant drop in hemoglobin from 04/11/2022 when it was 12.7 cause is not clear. Iron saturation 16% on 04/17/2020 5. Afebrile but with high white cell count, on prednisone 5 mg daily off of Prograf because level was 17.8 on 04/18/2022 Recommendation 1. Check iron saturation 2. Maintain Prograf as it has been discontinued and started 1 mg twice a day and redo labs in about 3 days
[2022-04-25 15:04] LABS: % Iron Saturation 15.57 (15.00-50.00)
--- NOTE | 2022-04-25 16:40 | P.PN ---
Subjective Progress Note Date: 04/25/22 Principal diagnosis: Fever Patient is a 61-year-old male with a past medical history for end- stage renal disease patient is status post renal and pancreas transplant on i mmunosuppressive medication also has history of left foot plantar wound and osteomyelitis for the patient is currently his antibiotic therapy patient presented to hospital for left ankle pain has been diagnosed with a fractured treated medically also spiked a fever and did have elevated white count. On today's evaluation and that is 04/25/2022 patient continues to be afebrile, the patient is breathing comfortably on room air, the patient denies chest pain , the patient did have some cough but not bringing up any sputum , patient denies any nausea no vomiting no abdominal pain and no diarrhea, pain to the left ankle controlled Objective - Vital Signs Vital signs: Vital Signs Temp 99.2 F 04/25/22 12: Pulse 81 04/25/22 12:26 Resp 18 04/25/22 12:26 BP 137/62 04/25/22 12: Pulse Ox 95 04/25/22 12:26 FiO2 Intake & Output 04/24/22 04/25/22 04/25/22 18:59 06:59 18:59 Intake Total 600 590 Output Total 0 300 550 Balance 600 290 -550 Weight 54.431 kg Intake: IV 600 ns@50. 600 Oral 590 Output: Urine 300 550 Stool 0 0 Other: Voiding Method Urinal Urinal # Voids 1 1 # Bowel Movements 1 1 - Exam GENERAL DESCRIPTION: Middle-aged male lying in bed in no distress RESPIRATORY SYSTEM: Unlabored breathing , decreased breath sounds at bases HEART: S1 S2 regular rate and rhythm , ABDOMEN: Soft , mild distention and tenderness EXTREMITIES: No edema feet - Labs CBC & Chem 7: 04/25/22 05:49 04/25/22 05:49 Labs: Abnormal Lab Results - Last 24 Hours (Table) 04/25/22 04/25/22 04/25/22 Range/Units 05:49 05:49 05:49 WBC 18.72 H (4.50-10.00) X 10*3/uL RBC 3.07 L (4.40-5.60) X 10*6/uL Hgb 8.4 L (13.0-17.0) g/dL Hct 25.8 L (39.6-50.0) % RDW 16.9 H (11.5-14.5) % Plt Count 673 H (140-440) X 10*3/uL MPV 9.1 L (9.5-12.2) fL Absolute Nucleated RBC 0.04 H (0.00-0.00) X 10*3/uL Immature Gran # 0.38 H (0.00-0.04) X 10*3/uL Neutrophils # 15.21 H (1.80-7.70) X 10*3/uL Monocytes # 1.39 H (0.20-1.00) X 10*3/uL NRBC/100 WBC Diff 0.2 H (0.0-0.0) /100 WBCS Sodium 132 L (135-145) mmol/L Carbon Dioxide 19.8 L (20.0-27.5) mmol/L Anion Gap 9.20 L (10.00-18.00) mmol/L Calcium 8.6 L (8.7-10.3) mg/dL C-Reactive Protein 14.70 H (0.00-0.80) mg/dL Procalcitonin 1.14 H (0.02-0.09) ng/mL Microbiology - Last 24 Hours (Table) 04/19/22 09:16 Blood Culture - Final Blood No Growth after 144 hours 04/19/22 10:25 Blood Culture - Preliminary Blood No Growth after 120 hours Assessment and Plan (1) Leukocytosis Current Visit: Yes Status: Acute Code(s): D72.829 - ELEVATED WHITE BLOOD CELL COUNT, UNSPECIFIED SNOMED Code(s): 137300022 (2) Fever Current Visit: No Status: Acute Code(s): R50.9 - FEVER, UNSPECIFIED SNOMED Code(s): 348852288 Plan: 1patient with a fever in this patient who do have a history of pancreas and renal transplant on immunosuppressive medication admitted to the hospital with left ankle fracture that is currently being treated conservatively with splint patient do have a history of nonhealing wound on the plantar aspect however currently mentioned no worsening of the wound or any drainage unfortunately I was not able to examine the foot properly because of this pain the patient is on patient currently do not have any obvious focus of infection abdomen has been soft medical examination influenza RSV and COVID testing was negative. 2the patient procalcitonin level has significantly decreased and blood cultures are so far negative. [address] chest abdominal pelvis did show some effusion no consolidation or acute normality inside abdominal 4the patient fever has resolved white count is still open however the patient has been on steroids and the patient's CRP and pro calcitonin are trending down and the patient has shown clinical improvement on cefepime and Flagyl to continue with give him a week of oral Avelox and discharged to close patient follow-up , Discussed with the admitting team Time with Patient: Less than 30
[2022-04-25] MEDS: ATORVASTATIN 10 MG TAB PO SCH (21:31)
[2022-04-25] MEDS: GABAPENTIN 300 MG CAP PO SCH (21:31)
[2022-04-25] MEDS: LATANOPROST 0.005% OPHTH DROPS 2.5 ML BTL RIGHT EYE SCH (21:32)
[2022-04-25] MEDS: MELATONIN 3 MG TABLET PO PRN (21:39)
[2022-04-25] MEDS: HYDROcodone/APAP 5-325MG 1 EACH TAB PO PRN (23:45)
--- NOTE | 2022-04-26 09:39 | P.PN ---
Subjective Patient is seen in follow-up for renal transplant management. GFR at baseline. Resting in bed. No vomiting or diarrhea. No active complaints. Vital signs are stable. General: No acute distress. HEENT: Head exam is unremarkable. LUNGS: Breath sounds decreased. HEART: Rate and Rhythm are regular. ABDOMEN: Soft, no distention. EXTREMITITES: Left foot wrapped. Objective - Vital Signs Vital signs: Vital Signs Temp 98.1 F 04/26/22 07:37 Pulse 71 04/26/22 07:37 Resp 16 04/26/22 07:37 BP 123/66 04/26/22 07:37 Pulse Ox 94 L 04/26/22 07:37 FiO2 Intake & Output 04/25/22 04/26/22 04/26/22 18:59 06:59 18:59 Intake Total 200 Output Total 800 250 300 Balance -600 -250 -300 Weight 54.431 kg Intake: Intake, IV Titration 200 Amount Cefepime 2 gm In Sodium 200 Chloride 0.9% 100 ml @ 25 mls/hr IVPB Q8HR [facility] Rx# :[id number] Output: Urine 800 250 300 Other: Voiding Method Urinal # Voids 1 3 # Bowel Movements 1 - Labs CBC & Chem 7: 04/25/22 05:49 04/25/22 05:49 Labs: Abnormal Lab Results - Last 24 Hours (Table) 04/25/22 04/25/22 04/25/22 Range/Units 05:49 05:49 05:49 Sodium 132 L (135-145) mmol/L Carbon Dioxide 19.8 L (20.0-27.5) mmol/L Anion Gap 9.20 L (10.00-18.00) mmol/L Calcium 8.6 L (8.7-10.3) mg/dL Iron 19 L (65-175) ug/dL TIBC 121 L (228-460) ug/dL Transferrin 86.7 L (204.0-354.0) mg/dL C-Reactive Protein 14.70 H (0.00-0.80) mg/dL Procalcitonin 1.14 H (0.02-0.09) ng/mL Microbiology - Last 24 Hours (Table) 04/19/22 10:25 Blood Culture - Final Blood No Growth after 144 hours 04/19/22 09:16 Blood Culture - Final Blood No Growth after 144 hours Assessment and Plan Plan: Assessment: 1. Status post simultaneous kidney pancreas transplant. GFR at baseline. 2. Left ankle fracture. Orthopedic surgery following. 3. Hyponatremia secondary to poor solute intake. Urine sodium less than 20. Urine osmolality 359. 4. Anemia of chronic kidney disease maintained on Aranesp. Iron deficiency noted. 5. Nonhealing foot wound on antibiotics. ID following. 6. Hypertension with chronic kidney disease. Stable. 7. Hypomagnesemia from poor intake and Prograf leading to renal magnesium losses. 8. Metabolic acidosis secondary to chronic kidney disease. 9. Chronic kidney disease stage I. Plan: Repeat Prograf level. Add oral bicarb. Encouraged oral intake. Avoid nephrotoxins. 1500 mL fluid restriction. Add IV iron. Add oral magnesium oxide.
[2022-04-26] MEDS: PANTOPRAZOLE 40 MG TABLET PO SCH (09:52)
[2022-04-26] MEDS: CEFEPIME 2 GM in SODIUM CHLORIDE 0.9% 100 ML IVPB SCH ×2 (09:52→17:01)
[2022-04-26] MEDS: BRIMONIDINE TARTRATE 0.2% DROPS 5 ML BTL BOTH EYES SCH ×2 (09:53→21:54)
[2022-04-26] MEDS: DORZOLAMIDE HCL 2% DROPS 10 ML BTL LEFT EYE SCH ×2 (09:53→21:54)
[2022-04-26] MEDS: ASPIRIN 81 MG PO SCH (09:53)
[2022-04-26] MEDS: APIXABAN 5 MG TAB PO SCH ×2 (09:53→21:54)
[2022-04-26] MEDS: carvediloL 6.25 MG TAB PO SCH ×2 (09:53→21:53)
[2022-04-26] MEDS: hydrALAZINE HCL 25 MG TAB PO SCH ×3 (09:54→21:53)
[2022-04-26] MEDS: metroNIDAZOLE 500 MG TAB PO SCH ×2 (09:54→17:01)
[2022-04-26] MEDS: TACROLIMUS 1 MG CAP PO SCH ×2 (09:55→21:53)
[2022-04-26] MEDS: predniSONE 5 MG TAB PO SCH (09:55)
[2022-04-26] MEDS: TIMOLOL 0.5% OPHTH DROPS 5 ML BTL BOTH EYES SCH ×2 (09:55→21:55)
[2022-04-26] MEDS: SODIUM BICARBONATE TAB 650 MG TAB PO SCH ×2 (10:04→21:53)
[2022-04-26] MEDS: MAGNESIUM OXIDE 400 MG TAB PO SCH ×2 (10:05→21:52)
--- NOTE | 2022-04-26 11:25 | P.DS ---
Providers Date of admission: 04/16/22 17:09 Expected date of discharge: 04/26/22 Attending physician: Rosy Lino DO Consults: 04/16/22 17:08 Consult Physician Routine Consulting Provider: Silvano Stevens Consult Reason/Comments: bimalleolar ankle fx Do you want consulting provider notified?: Already Contacted 04/16/22 17:41 Consult Physician Routine Consulting Provider: Ashli An Consult Reason/Comments: renal transplant patient Do you want consulting provider notified?: Yes 04/19/22 08:12 Consult Physician Routine Consulting Provider: Carlos Sow Consult Reason/Comments: fevers Do you want consulting provider notified?: Yes Primary care physician: Devon Brand MD Hospital Course: 61-year male with a past medical history significant for diabetes mellitus patient did have a history of end-stage renal disease in this patient with status post renal pancreatic transplant on chronic prednisone and immunosuppressive medication including tacrolimus patient also has a chronic nonhealing wound on the plantar aspect of the left foot and 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 He did have influenza RSV and COVID testing which has been negative he did have a chest x-ray which showed COPD with basilar atelectasis or early infiltrate with tiny pleural effusion. ID team was consulted for further recommendations. Patient was treated in the hospital with cefepime and flagyl with improvement of inflammatory markers. Unfortunately no clear source of infection was identified except for the possibility of pneumonia. Recommendation was to continue 1 week oral avelox on DC. Patient will be discharged home in stable condition with home care. Outpatient follow up with orthopedic surgery. Assessment/plan: Left ankle fracture complicated by Charcot joint and peripheral neuropathy - continue with splint and non weight bearing. - pain control - Ortho recs review: outpatient follow-up - eliquis on hold incase surgery is indicated. - he refuses rehab Pyrexia in the setting of immunospuression and recent chronic osteomyelitis, off abx for 6 weeks Sepsis secondary to suspected Pneumonia -Infectious disease recommendation to prescribe Avelox for 1 week Anemia of chronic disease -IV iron as per nephrology Hyponatremia,stable -Continue with fluid restriction a Lasix on discharge Diastolic congestive heart failure with ejection fraction 50-55% Hypertension Paroxysmal Atrial fibrillation anticoagulated with this Patient Condition at Discharge: Stable Plan - Discharge Summary Discharge Rx Participant: Yes New Discharge Prescriptions: New Moxifloxacin HCl [Avelox] 400 mg PO DAILY 7 Days #7 tab Continue predniSONE 5 mg PO DAILY mycophenolate mofetiL [Cellcept] 500 mg PO BID Aspirin 81 mg PO DAILY Multivitamin [Men's Multi-Vitamin] 1 tab PO DAILY Dorzolamide 2% [Trusopt 2%] 1 drop LEFT EYE BID carvediloL [Coreg] 6.25 mg PO BID Brimonidine Tartrate/Timolol [Combigan 0.2%-0.5% Eye Drops] 1 drop BOTH EYES BID Gabapentin 300 mg PO HS #3 cap Cholecalciferol [Vitamin D3 (25 Mcg = 1000 Iu)] 25 mcg PO DAILY Bimatoprost [Lumigan 0.01% Ophth Soln] 1 drop RIGHT EYE HS Tacrolimus [Prograf] 1 mg PO BID Magnesium Oxide [Mag-Ox] 400 mg PO DAILY Ondansetron Odt [Zofran ODT] 4 mg PO Q8HR PRN PRN Reason: Nausea NIFEdipine XL [Procardia XL] 60 mg PO BID hydrALAZINE HCL [Apresoline] 25 mg PO TID tab Folic Acid 0.8 mg PO DAILY Apixaban [Eliquis] 5 mg PO BID #60 tab Furosemide [Lasix] 40 mg PO BID@0900,1600 #60 tab traMADol HCL 50 mg PO Q6H PRN PRN Reason: Pain Sodium Polystyrene Sulfonate [Kayexalate] 15 gm PO Q14D Lovastatin [Mevacor] 20 mg PO HS Discharge Medication List Aspirin 81 mg PO DAILY 09/27/13 [History] Multivitamin [Men's Multi-Vitamin] 1 tab PO DAILY 09/27/13 [History] mycophenolate mofetiL [Cellcept] 500 mg PO BID 09/27/13 [History] predniSONE 5 mg PO DAILY 09/27/13 [History] Dorzolamide 2% [Trusopt 2%] 1 drop LEFT EYE BID 12/02/14 [History] carvediloL [Coreg] 6.25 mg PO BID 02/15/18 [History] Brimonidine Tartrate/Timolol [Combigan 0.2%-0.5% Eye Drops] 1 drop BOTH EYES BID 11/25/21 [History] NIFEdipine XL [Procardia XL] 60 mg PO BID 11/25/21 [History] Gabapentin 300 mg PO HS #3 cap 01/19/22 [Rx] hydrALAZINE HCL [Apresoline] 25 mg PO TID tab 01/19/22 [Rx] Bimatoprost [Lumigan 0.01% Oph Soln] 1 drop RIGHT EYE HS 02/21/22 [History] Cholecalciferol [Vitamin D3 (25 Mcg = 1000 Iu)] 25 mcg PO DAILY 02/21/22 [History] Folic Acid 0.8 mg PO DAILY 02/21/22 [History] Apixaban [Eliquis] 5 mg PO BID #60 tab 02/27/22 [Rx] Furosemide [Lasix] 40 mg PO BID@0900,1600 #60 tab 02/27/22 [Rx] Lovastatin [Mevacor] 20 mg PO HS 04/13/22 [History] Magnesium Oxide [Mag-Ox] 400 mg PO DAILY 04/13/22 [History] Sodium Polystyrene Sulfonate [Kayexalate] 15 gm PO Q14D 04/13/22 [History] Tacrolimus [Prograf] 1 mg PO BID 04/13/22 [History] traMADol HCL 50 mg PO Q6H PRN 04/13/22 [History] Ondansetron Odt [Zofran ODT] 4 mg PO Q8HR PRN 04/16/22 [History] Moxifloxacin HCl [Avelox] 400 mg PO DAILY 7 Days #7 tab 04/26/22 [Rx] Follow up Appointment(s)/Referral(s): Abdulaziz Adkins PAC [PHYSICIAN [employer]] - 05/05/22 1:30 pm Devon Brand MD [Primary Care Provider] - 1 Week (PLEASE CALL AND SCHEDULE APPOINTMENT.) [facility] [NON-STAFF] - 1 Week (AGENCY WILL CONTACT YOU.) Patient Instructions/Handouts: Moxifloxacin (By mouth), Ankle Fracture (DC), Fever in Adults (GEN) Activity/Diet/Wound Care/Special Instructions: Non weightbearing elevate and ice and ankle Take meds as directed F/U in office Discharge Disposition: HOME WITH HOME HEALTH SERVICES
[2022-04-26] MEDS: SODIUM FERRIC GLUCONAT-SUCROSE 125 MG in SODIUM CHLORIDE 0.9% 100 ML IVPB SCH (14:13)
--- NOTE | 2022-04-26 15:37 | P.PN ---
Subjective Progress Note Date: 04/26/22 Principal diagnosis: 61-year male with a past medical history significant for diabetes mellitus patient did have a history of end-stage renal disease in this patient with status post renal pancreatic transplant on chronic prednisone and immunosuppressive medication including tacrolimus patient also has a chronic nonhealing wound on the plantar aspect of the left foot and 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 He did have influenza RSV and COVID testing which has been negative he did have a chest x-ray which showed COPD with basilar atelectasis or early infiltrate with tiny pleural effusion. ID team was consulted for further recommendations. Patient was treated in the hospital with cefepime and flagyl with improvement of inflammatory markers. Unfortunately no clear source of infection was identified except for the possibility of pneumonia. Recommendation was to continue 1 week oral avelox on DC. 04/26/2022: Patient was anticipated to discharge home today however he does not have family support at home. And family is requesting subacute rehab. PTOT have been asked to reevaluate patient for possible subacute rehab discharge Patient was also having frustration and voiced the nurse that he wanted a pill just "end it all" I evaluated patient and asked if he had any thoughts of hurting himself or harm to others and he stated no. Patient did not have any plan of attempting to hurt himself. At this time he admits to being frustrated with his current medical situation and discharge plan. However at this time he did not appear to have any suicidal ideations. Objective - Vital Signs Vital signs: Vital Signs Temp 98.1 F 04/26/22 07:37 Pulse 71 04/26/22 07:37 Resp 16 04/26/22 07:37 BP 123/66 04/26/22 07:37 Pulse Ox 94 L 04/26/22 07:37 FiO2 Intake & Output 04/25/22 04/26/22 04/26/22 18:59 06:59 18:59 Intake Total 200 Output Total 800 250 300 Balance -600 -250 -300 Weight 54.431 kg Intake: Intake, IV Titration 200 Amount Cefepime 2 gm In Sodium 200 Chloride 0.9% 100 ml @ 25 mls/hr IVPB Q8HR [facility] Rx# :[id number] Output: Urine 800 250 300 Stool 0 Other: Voiding Method Urinal Urinal # Voids 1 3 # Bowel Movements 1 - Exam Gen: awake, alert HEENT: normocephalic, atraumatic, good hearing acuity, moist mucous membranes Resp: good air exchange, breathing comfortably with no accessory muscle use, left lower lobe crackles CVS: good distal perfusion x 4, regular rate and rhythm no murmurs GI: soft, NTTP, ND : no SPT, no CVAT, beard catheter not present MSK: no pitting edema, no clubbing Neuro: non-focal, moving all extremities Psych: cooperative, euthymic mood - Labs CBC & Chem 7: 04/25/22 05:49 04/25/22 05:49 Labs: Microbiology - Last 24 Hours (Table) 04/19/22 10:25 Blood Culture - Final Blood No Growth after 144 hours 04/19/22 09:16 Blood Culture - Final Blood No Growth after 144 hours Assessment and Plan (1) Bimalleolar ankle fracture Current Visit: Yes Status: Acute Priority: Medium Code(s): S82.843A - DISPLACED BIMALLEOLAR FRACTURE OF UNSP LOWER LEG, INIT SNOMED Code(s): 594693910 Plan: Left ankle fracture complicated by Charcot joint and peripheral neuropathy - continue with splint and non weight bearing. - pain control - Ortho recs review: outpatient follow-up Chronic wound to the plantar aspect of left foot -Orthopedic surgery team has been asked to reevaluate wound Pyrexia in the setting of immunospuression and recent chronic osteomyelitis, off abx for 6 weeks Sepsis secondary to suspected Pneumonia -Infectious disease recommendation to prescribe Avelox for 1 week Anemia of chronic disease -IV iron as per nephrology Hyponatremia,stable -Continue with fluid restriction a Lasix on discharge Diastolic congestive heart failure with ejection fraction 50-55% Hypertension Paroxysmal Atrial fibrillation -Eliquis Disposition: Patient on discharge was held today secondary to family requesting subacute rehab. PTOT to reevaluate patient. Case management attempting to find accepting subacute rehab bed
--- NOTE | 2022-04-26 16:09 | P.PN ---
Subjective Progress Note Date: 04/26/22 Principal diagnosis: Fever Patient is a 61-year-old male with a past medical history for end- stage renal disease patient is status post renal and pancreas transplant on i mmunosuppressive medication also has history of left foot plantar wound and osteomyelitis for the patient is currently his antibiotic therapy patient presented to hospital for left ankle pain has been diagnosed with a fractured treated medically also spiked a fever and did have elevated white count. On today's evaluation and that is 04/26/2022 patient denies any fever or chills, the patient is breathing comfortably on room air, the patient denies chest pain , the patient did have occasional dry cough patient denies nausea no vomiting no abdominal pain no diarrhea Objective - Vital Signs Vital signs: Vital Signs Temp 98.1 F 04/26/22 07:37 Pulse 71 04/26/22 07:37 Resp 16 04/26/22 07:37 BP 123/66 04/26/22 07:37 Pulse Ox 94 L 04/26/22 07:37 FiO2 Intake & Output 04/25/22 04/26/22 04/26/22 18:59 06:59 18:59 Intake Total 200 Output Total 800 250 300 Balance -600 -250 -300 Weight 54.431 kg Intake: Intake, IV Titration 200 Amount Cefepime 2 gm In Sodium 200 Chloride 0.9% 100 ml @ 25 mls/hr IVPB Q8HR [facility] Rx# :[id number] Output: Urine 800 250 300 Other: Voiding Method Urinal # Voids 1 3 # Bowel Movements 1 - Exam GENERAL DESCRIPTION: Middle-aged male lying in bed in no distress RESPIRATORY SYSTEM: Unlabored breathing , decreased breath sounds at bases HEART: S1 S2 regular rate and rhythm , ABDOMEN: Soft , mild distention and tenderness EXTREMITIES: No edema feet - Labs CBC & Chem 7: 04/25/22 05:49 04/25/22 05:49 Labs: Abnormal Lab Results - Last 24 Hours (Table) 04/25/22 Range/Units 05:49 Iron 19 L (65-175) ug/dL TIBC 121 L (228-460) ug/dL Transferrin 86.7 L (204.0-354.0) mg/dL Microbiology - Last 24 Hours (Table) 04/19/22 10:25 Blood Culture - Final Blood No Growth after 144 hours 04/19/22 09:16 Blood Culture - Final Blood No Growth after 144 hours Assessment and Plan (1) Leukocytosis Current Visit: Yes Status: Acute Code(s): D72.829 - ELEVATED WHITE BLOOD CELL COUNT, UNSPECIFIED SNOMED Code(s): 913573076 (2) Fever Current Visit: No Status: Acute Code(s): R50.9 - FEVER, UNSPECIFIED SNOMED Code(s): 425350268 Plan: 1patient with a fever in this patient who do have a history of pancreas and renal transplant on immunosuppressive medication admitted to the hospital with left ankle fracture that is currently being treated conservatively with splint patient do have a history of nonhealing wound on the plantar aspect however currently mentioned no worsening of the wound or any drainage unfortunately I was not able to examine the foot properly because of this pain the patient is on patient currently do not have any obvious focus of infection abdomen has been soft medical examination influenza RSV and COVID testing was negative. 2the patient procalcitonin level has significantly decreased and blood cultures are so far negative. [address] patient did have a CT chest abdominal pelvis did show some effusion no c onsolidation or acute normality inside abdominal 4the patient fever has resolved white count is still open however the patient has been on steroids and the patient's CRP and pro calcitonin are trending down 5- patient will continue with cefepime and Flagyl while inpatient and will finish therapy with week of oral Avelox and discharged and close patient follow-up Time with Patient: Less than 30
[2022-04-26] MEDS: GABAPENTIN 300 MG CAP PO SCH (21:52)
[2022-04-26] MEDS: HYDROcodone/APAP 5-325MG 1 EACH TAB PO PRN (21:53)
[2022-04-26] MEDS: MELATONIN 3 MG TABLET PO PRN (21:53)
[2022-04-26] MEDS: ATORVASTATIN 10 MG TAB PO SCH (21:53)
[2022-04-26] MEDS: LATANOPROST 0.005% OPHTH DROPS 2.5 ML BTL RIGHT EYE SCH (21:55)
[2022-04-27] MEDS ORDERED: ONDANSETRON 4 MG TAB PO PRN (08:46)
[2022-04-27] MEDS: ASPIRIN 81 MG PO SCH (09:54)
[2022-04-27] MEDS: DORZOLAMIDE HCL 2% DROPS 10 ML BTL LEFT EYE SCH ×2 (09:54→20:14)
[2022-04-27] MEDS: BRIMONIDINE TARTRATE 0.2% DROPS 5 ML BTL BOTH EYES SCH ×2 (09:54→20:14)
[2022-04-27] MEDS: carvediloL 6.25 MG TAB PO SCH ×2 (09:54→20:13)
[2022-04-27] MEDS: PANTOPRAZOLE 40 MG TABLET PO SCH (09:54)
[2022-04-27] MEDS: hydrALAZINE HCL 25 MG TAB PO SCH ×3 (09:54→22:29)
[2022-04-27] MEDS: APIXABAN 5 MG TAB PO SCH (09:54)
[2022-04-27] MEDS: SODIUM BICARBONATE TAB 650 MG TAB PO SCH ×2 (09:55→20:13)
[2022-04-27] MEDS: MAGNESIUM OXIDE 400 MG TAB PO SCH ×2 (09:55→20:12)
[2022-04-27] MEDS: TIMOLOL 0.5% OPHTH DROPS 5 ML BTL BOTH EYES SCH ×2 (09:56→20:14)
[2022-04-27] MEDS: predniSONE 5 MG TAB PO SCH (09:56)
[2022-04-27] MEDS: TACROLIMUS 1 MG CAP PO SCH ×2 (09:56→20:13)
[2022-04-27 10:23] LABS: African American GFR (CKD) 119.7 (60.0-200.0); Anion Gap 12.6 mmol/L (10.00-18.00); BUN/Creat Ratio 11.43 Ratio (12.00-20.00); Calcium 8.6 mg/dL (8.7-10.3); Carbon Dioxide 19.4 mmol/L (20.0-27.5); Magnesium 1.4 mg/dL (1.5-2.4); Non-African American GFR(CKD) 103.3 (60.0-200.0); Potassium 4.1 mmol/L (3.5-5.5)
[2022-04-27] MEDS: MAGNESIUM SULFATE-D5W PMX 1 GM in DEXTROSE/WATER 1 100ML.BAG IVPB SCH ×2 (11:15→12:38)
[2022-04-27 11:16] LABS: Anisocytosis Slight; Basophils # (A) 0.1 k/uL (0-0.2); Basophils % (A) 0 %; Eosinophils # (A) 0.2 k/uL (0-0.7); Eosinophils % (A) 1 %; HCT 30.9 % (39.0-53.0); HGB 9.5 gm/dL (13.0-17.5); Hypochromasia Marked; Lymphocytes # (A) 0.8 k/uL (1.0-4.8); Lymphocytes % (A) 5 %; MCH 27.5 pg (25.0-35.0); MCHC 30.8 g/dL (31.0-37.0); MCV 89.4 fL (80.0-100.0); Mean Platelet Volume 7.7; Monocytes # (A) 1.2 k/uL (0-1.0); Monocytes % (A) 7 %; Neutrophils # (A) 13.8 k/uL (1.3-7.7); Neutrophils % (A) 84 %; Platelet Count 691 k/uL (150-450); RBC 3.46 m/uL (4.30-5.90); RDW 16.9 % (11.5-15.5); WBC 16.4 k/uL (3.8-10.6)
[2022-04-27 11:29] LABS: ALT 14 U/L (4-49); AST 32 U/L (17-59); African American GFR (CKD) >90 (>60 ml/min/1.73 sqM); Albumin 2.7 g/dL (3.5-5.0); Albumin/Globulin Ratio 0.8; Alkaline Phosphatase 116 U/L (38-126); Anion Gap 8 mmol/L; Blood Urea Nitrogen 9 mg/dL (9-20); Calcium 8.6 mg/dL (8.4-10.2); Carbon Dioxide 22 mmol/L (22-30); Chloride 104 mmol/L (98-107); Globulin 3.6 g/dL; Glucose 97 mg/dL (74-99); Non-African American GFR(CKD) >90 (>60 ml/min/1.73 sqM); Potassium 4.8 mmol/L (3.5-5.1); Sodium 134 mmol/L (137-145); Total Bilirubin 0.5 mg/dL (0.2-1.3); Total Protein 6.3 g/dL (6.3-8.2)
--- NOTE | 2022-04-27 12:06 | P.PN ---
Subjective Patient is seen in follow-up for renal transplant management. GFR at baseline. Resting in bed. No vomiting or diarrhea. No active complaints. H emodynamically stable. Vital signs are stable. General: No acute distress. HEENT: Head exam is unremarkable. LUNGS: Breath sounds decreased. HEART: Rate and Rhythm are regular. ABDOMEN: Soft, no distention. EXTREMITITES: Left foot wrapped. Objective - Vital Signs Vital signs: Vital Signs Temp 98.6 F 04/27/22 07:20 Pulse 95 04/27/22 11:25 Resp 17 04/27/22 11:25 BP 145/66 04/27/22 11:25 Pulse Ox 100 04/27/22 11:25 FiO2 Intake & Output 04/26/22 04/27/22 04/27/22 18:59 06:59 18:59 Intake Total 540 Output Total 300 250 300 Balance -300 290 -300 Intake: Oral 540 Output: Urine 300 250 300 Stool 0 Other: Voiding Method Urinal Urinal # Bowel Movements 1 - Labs CBC & Chem 7: 04/27/22 10:31 04/27/22 10:31 Labs: Abnormal Lab Results - Last 24 Hours (Table) 04/27/22 04/27/22 04/27/22 Range/Units 07:58 10:31 10:31 WBC 16.4 H (3.8-10.6) k/uL RBC 3.46 L (4.30-5.90) m/uL Hgb 9.5 L (13.0-17.5) gm/dL Hct 30.9 L (39.0-53.0) % MCHC 30.8 L (31.0-37.0) g/dL RDW 16.9 H (11.5-15.5) % Plt Count 691 H (150-450) k/uL Neutrophils # 13.8 H (1.3-7.7) k/uL Lymphocytes # 0.8 L (1.0-4.8) k/uL Monocytes # 1.2 H (0-1.0) k/uL Sodium 134 L (137-145) mmol/L Carbon Dioxide 19.4 L (20.0-27.5) mmol/L BUN 8.0 L (9.0-27.0) mg/dL Creatinine 0.65 L (0.66-1.25) mg/dL BUN/Creatinine Ratio 11.43 L (12.00-20.00) Ratio Calcium 8.6 L (8.7-10.3) mg/dL Magnesium 1.4 L (1.5-2.4) mg/dL Albumin 2.7 L (3.5-5.0) g/dL Assessment and Plan Plan: Assessment: 1. Status post simultaneous kidney pancreas transplant. GFR at baseline. 2. Left ankle fracture. Orthopedic surgery following. 3. Hyponatremia secondary to poor solute intake. Urine sodium less than 20. Urine osmolality 359. Stable. 4. Anemia of chronic kidney disease maintained on Aranesp. Iron deficiency noted. 5. Nonhealing foot wound on antibiotics. ID following. 6. Hypertension with chronic kidney disease. Stable. 7. Hypomagnesemia from poor intake and Prograf leading to renal magnesium losses. On oral magnesium oxide. Also receiving IV magnesium. 8. Metabolic acidosis secondary to chronic kidney disease. On oral bicarb. Better. 9. Chronic kidney disease stage I. Plan: Follow-up Prograf level. Encouraged oral intake. Avoid nephrotoxins. 1500 mL fluid restriction. Maintain IV iron. Advised to follow up outpatient 1 week post discharge.
--- NOTE | 2022-04-27 15:17 | P.PN ---
Subjective Progress Note Date: 04/27/22 Principal diagnosis: Fever Patient is a 61-year-old male with a past medical history for end- stage renal disease patient is status post renal and pancreas transplant on i mmunosuppressive medication also has history of left foot plantar wound and osteomyelitis for the patient is currently his antibiotic therapy patient presented to hospital for left ankle pain has been diagnosed with a fractured treated medically also spiked a fever and did have elevated white count. On today's evaluation and that is 04/27/2022 patient remains to be afebrile, the patient is breathing comfortably on room air, the patient denies chest pain , the patient cough is decreased intensity mostly dry in nature, patient denies nausea no vomiting no abdominal pain no diarrhea, patient was noted to have significant blood stained drainage from his left foot plantar wound Objective - Vital Signs Vital signs: Vital Signs Temp 98.6 F 04/27/22 07:20 Pulse 95 04/27/22 11:25 Resp 17 04/27/22 11:25 BP 145/66 04/27/22 11:25 Pulse Ox 100 04/27/22 11:25 FiO2 Intake & Output 04/26/22 04/27/22 04/27/22 18:59 06:59 18:59 Intake Total 540 Output Total 300 250 300 Balance -300 290 -300 Intake: Oral 540 Output: Urine 300 250 300 Stool 0 Other: Voiding Method Urinal Urinal # Bowel Movements 1 - Exam GENERAL DESCRIPTION: Middle-aged male lying in bed in no distress RESPIRATORY SYSTEM: Unlabored breathing , decreased breath sounds at bases HEART: S1 S2 regular rate and rhythm , ABDOMEN: Soft , mild distention and tenderness EXTREMITIES: Patient did have significant amount of mucoid/blood stained drai nage from his left foot plantar wound coming from the ankle area and significant instability of the ankle on examination - Labs CBC & Chem 7: 04/27/22 10:31 04/27/22 10:31 Labs: Abnormal Lab Results - Last 24 Hours (Table) 04/27/22 04/27/22 04/27/22 Range/Units 07:58 10:31 10:31 WBC 16.4 H (3.8-10.6) k/uL RBC 3.46 L (4.30-5.90) m/uL Hgb 9.5 L (13.0-17.5) gm/dL Hct 30.9 L (39.0-53.0) % MCHC 30.8 L (31.0-37.0) g/dL RDW 16.9 H (11.5-15.5) % Plt Count 691 H (150-450) k/uL Neutrophils # 13.8 H (1.3-7.7) k/uL Lymphocytes # 0.8 L (1.0-4.8) k/uL Monocytes # 1.2 H (0-1.0) k/uL Sodium 134 L (137-145) mmol/L Carbon Dioxide 19.4 L (20.0-27.5) mmol/L BUN 8.0 L (9.0-27.0) mg/dL Creatinine 0.65 L (0.66-1.25) mg/dL BUN/Creatinine Ratio 11.43 L (12.00-20.00) Ratio Calcium 8.6 L (8.7-10.3) mg/dL Magnesium 1.4 L (1.5-2.4) mg/dL Albumin 2.7 L (3.5-5.0) g/dL Assessment and Plan (1) Leukocytosis Current Visit: Yes Status: Acute Code(s): D72.829 - ELEVATED WHITE BLOOD CELL COUNT, UNSPECIFIED SNOMED Code(s): 694772363 (2) Fever Current Visit: No Status: Acute Code(s): R50.9 - FEVER, UNSPECIFIED SNOMED Code(s): 455285211 Plan: 1patient with a fever in this patient who do have a history of pancreas and renal transplant on immunosuppressive medication admitted to the hospital with left ankle fracture that is currently being treated conservatively with splint patient do have a history of nonhealing wound on the plantar aspect however currently mentioned no worsening of the wound or any drainage unfortunately I was not able to examine the foot properly because of this pain the patient is on patient currently do not have any obvious focus of infection abdomen has been soft medical examination influenza RSV and COVID testing was negative. 2the patient procalcitonin level has significantly decreased and blood cultures are so far negative. 3 patient did have a [address] chest abdominal pelvis did show some effusion no consolidation or acute normality inside abdominal 4the patient persistent leukocytosis more likely related to the left ankle hematoma related to his trauma now with evidence of significant instability at the ankle patient to be evaluated by orthopedic, patient antibiotic was switched to Levaquin and will be monitored closely Time with Patient: Less than 30
[2022-04-27] MEDS: SODIUM FERRIC GLUCONAT-SUCROSE 125 MG in SODIUM CHLORIDE 0.9% 100 ML IVPB SCH (15:59)
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
[2022-04-27] MEDS: LEVOFLOXACIN 500 MG TAB PO SCH (17:05)
[2022-04-27] MEDS: ACETAMINOPHEN TAB 325 MG TAB PO PRN (17:05)
--- NOTE | 2022-04-27 18:48 | P.PN ---
Subjective Progress Note Date: 04/27/22 (delayed charting seen at 0945) Patient is a 61-year-old male with prior diabetes mellitus and ESRD status post renal and pancreatic transplant on chronic prednisone, mycophenolate, and tacrolimus, neuropathy, and multiple recent admissions were service. Patient's last admission records were reviewed. He was hospitalized 02/21/22 through 02/27/22 which resulted in diagnosis of newly discovered diastolic congestive heart failure with ejection fraction preserved at 50-55%, difficult to treat left foot osteomyelitis, and newly discovered atrial fibrillation with rapid ventricular response. He presented to the ER on 03/17/22 with complaints of left ankle pain after he twisted his ankle the day prior to admission. On arrival to the ER his vital signs were within normal limits. Lab urinalysis was remarkable for a white blood cell count of 20.1, hemoglobin 9.5, platelets 472, INR 1.4, sodium 121, BUN 28, and creatinine 1.28. In the ER he underwent an x-ray which showed acute fractures of the distal fibula with posterior angulation and tibia medial malleolus along with Charcot arthropathy. He was started on IV fluids and arrangements were made for admission. He was continued on IVF. Nephrology was consulted. His sodium improved. Orthopedic surgery who recommended nonweightbearing to the left lower extremity as well as a splint. No operative plans at this time. He spiked a fever on 04/18. Influenza A/B, RSV, and Covid testing were negative. Urinalysis was unremarkable. Chest x-ray unremarkable. Pro-calcitonin was elevated at 18.3. He was started on cefepime. Infectious disease was consulted. Patient underwent CT chest abdomen and pelvis which showed bilateral left greater than right pleural effusions with compressive atelectasis, non- rotation the ball with small bowel in the right hemiabdomen and most of the large bowel in the left hemiabdomen, transplanted kidney without renal atrophic changes of the [place] kidneys. Venous Doppler Right upper extremity without DVT. Patient procalcitonin level continued to decrease, blood cultures were negative and he was taken off cefepime. Patient seen and examined at bedside. He denies any chest pain, shortness of breath. He states that he came in his ankle is relatively well controlled. Nurse alerted be of blood coming from the splinted area. Upon exam there is fresh blood noted at the exposed toes on the left foot with splint in place. Dressing was cautiously removed and there was noted to be a dime to quarter- sized ulceration on the dorsal aspect of the foot with copious amounts of sangui nous thick fluid. . Pressure dressing was placed. Orthopedic surgery was contacted to evaluate patient. General: Ill appearing, no distress, appears at stated age Derm: warm, dry Head: atraumatic, normocephalic, symmetric Eyes: EOMI, no lid lag, anicteric sclera Mouth: no lip lesion, mucus membranes moist Cardiovascular: S1S2 reg, no murmur, positive posterior tibial pulse bilateral, Lungs: Decreased breath sounds bilateral bases, no rhonchi, no rales , no accessory muscle use Abdominal: soft, nontender to palpation, no guarding, no appreciable organomegaly Ext: no gross muscle atrophy, no edema, no contractures Left foot with dime to quarter-sized ulceration in dorsum with sanguinous, thick fluid no erythema near base, boggy appearance to left ankle which does not appear to be stable. Neuro: CN II-XI grossly intact, no focal neuro deficits Psych: Alert, oriented, appropriate affect Assessment/plan: Chronic wound left dorsum of foot Left ankle fracture complicated by Charcot joint and peripheral neuropathy -Case discussed with WOO Potter from orthopedic surgery at length. There is no plan for operative management of his fracture due to chronic osteomyelitis, orthopedic surgery recommending general surgery evaluation for p ossible BKA -Case discussed with Dr. Garcia of vascular surgery who will evaluate patient. -Stat CBC reviewed and hemoglobin is stable - continue with splint and non weight bearing. - pain control - Ortho recs review: outpatient follow-up Pyrexia in the setting of immunospuression and recent chronic osteomyelitis, off abx for 6 weeks Sepsis secondary to suspected Pneumonia - Covid, Flu, and RSV negative - ID recs appreciated. Anemia of chronic disease -Hemoglobin has dropped approximately 2 g last 2 months -Status post IV iron X 1, 3 more doses -Follow CBC Immunocompromised status secondary to pancreatic renal transplant - prednisone, tacrolimus, mycophenolate -nephrology recs appreciated Diastolic congestive heart failure with ejection fraction 50-55% Hypertension Paroxysmal Atrial fibrillation, eliquis on hold - meds reviewed - monitor HR Prior diabetes with diabetic neuropathy - Follow blood sugars closely - A1C 5.6 Dyslipidemia -Lovastatin Recent prolonged Left foot osteomyelitis, currently off antibiotics Hyponatremia,resolved DVT prophylaxis: SCDs Discussed with: patient, nursing, Anticipated discharge date: in AM Anticipated discharge place: vs SNF A total of 32 minutes was spent on the care of this complex patient more than 50% of the time was spent in counseling and care coordination. Active Medications Acetaminophen (Acetaminophen Tab 325 Mg Tab) 650 mg PO Q6HR PRN PRN Reason: Mild Pain or Fever > 100.5 Last Admin: 04/27/22 17:05 Dose: 650 mg Hydrocodone Bitart/Acetaminophen (Hydrocodone/Apap 5-325mg 1 Each Tab) 1 each PO Q4HR PRN PRN Reason: Moderate Pain (Scale 4 to 6) Last Admin: 04/26/22 21:53 Dose: 1 each Aspirin (Aspirin 81 Mg) 81 mg PO DAILY [facility] Last Admin: 04/27/22 09:54 Dose: 81 mg Atorvastatin Calcium (Atorvastatin 10 Mg Tab) 10 mg PO HS [facility] Last Admin: 04/26/22 21:53 Dose: 10 mg Bisacodyl (Bisacodyl 5 Mg Tablet.Dr) 5 mg PO DAILY PRN PRN Reason: Constipation Last Admin: 04/20/22 11:18 Dose: 5 mg Brimonidine Tartrate (Brimonidine Tartrate 0.2% Drops 5 Ml Btl) 1 drops BOTH EYES BID [facility] Last Admin: 04/27/22 09:54 Dose: 1 drops Carvedilol (Carvedilol 6.25 Mg Tab) 6.25 mg PO BID [facility] Last Admin: 04/27/22 09:54 Dose: 6.25 mg Darbepoetin Eitan (Darbepoetin Eitan 40 Mcg/0.4 Ml Syringe) 40 mcg SQ Q7D [facility] Last Admin: 04/25/22 12:01 Dose: 40 mcg Dorzolamide HCl (Dorzolamide Hcl 2% Drops 10 Ml Btl) 1 drops LEFT EYE BID [facility] Last Admin: 04/27/22 09:54 Dose: 1 drops Gabapentin (Gabapentin 300 Mg Cap) 300 mg PO HS [facility] Last Admin: 04/26/22 21:52 Dose: 300 mg Hydralazine HCl (Hydralazine Hcl 25 Mg Tab) 25 mg PO TID [facility] Last Admin: 04/27/22 17:05 Dose: 25 mg Ferric Sodium Gluconate 125 mg (/ Sodium Chloride) 110 mls @ 100 mls/hr IVPB DAILY [facility] Stop: 04/29/22 09:46 Last Admin: 04/27/22 15:59 Dose: 100 mls/hr Latanoprost (Latanoprost 0.005% Ophth Drops 2.5 Ml Btl) 1 drops RIGHT EYE HS [facility] Last Admin: 04/26/22 21:55 Dose: 1 drops Levofloxacin (Levofloxacin 500 Mg Tab) 500 mg PO Q24H [facility]; Protocol Last Admin: 04/27/22 17:05 Dose: 500 mg Magnesium Oxide (Magnesium Oxide 400 Mg Tab) 400 mg PO BID [facility] Last Admin: 04/27/22 09:55 Dose: 400 mg Melatonin (Melatonin 3 Mg Tablet) 3 mg PO HS PRN PRN Reason: Insomnia Last Admin: 04/26/22 21:53 Dose: 3 mg Morphine Sulfate (Morphine Sulfate 4 Mg/Ml Syringe) 4 mg IVP Q4HR PRN PRN Reason: Severe Pain (Scale 7 to 10) Last Admin: 04/17/22 06:52 Dose: 4 mg Mycophenolate Mofetil (Mycophenolate Mofetil 500 Mg Tab) 500 mg PO BID [facility] Last Admin: 04/27/22 09:55 Dose: 500 mg Naloxone HCl (Naloxone 0.4 Mg/Ml 1 Ml Vial) 0.2 mg IV Q2M PRN PRN Reason: Opioid Reversal Nifedipine (Nifedipine Xl 60 Mg Tab.Er.24) 60 mg PO BID [facility] Last Admin: 04/27/22 09:55 Dose: 60 mg Ondansetron HCl (Ondansetron 4 Mg/2 Ml Vial) 4 mg IVP Q8HR PRN PRN Reason: Nausea And Vomiting Ondansetron HCl (Ondansetron 4 Mg Tab) 4 mg PO Q8HR PRN PRN Reason: Nausea And Vomiting Last Admin: 04/27/22 08:56 Dose: 4 mg Pantoprazole Sodium (Pantoprazole 40 Mg Tablet) 40 mg PO AC-BRKFST [facility] Last Admin: 04/27/22 09:54 Dose: 40 mg Prednisone (Prednisone 5 Mg Tab) 5 mg PO DAILY [facility] Last Admin: 04/27/22 09:56 Dose: 5 mg Sodium Bicarbonate (Sodium Bicarbonate Tab 650 Mg Tab) 650 mg PO BID [facility] Last Admin: 04/27/22 09:55 Dose: 650 mg Tacrolimus (Tacrolimus 1 Mg Cap) 1 mg PO BID [facility] Last Admin: 04/27/22 09:56 Dose: 1 mg Timolol Maleate (Timolol 0.5% Ophth Drops 5 Ml Btl) 1 drops BOTH EYES BID [facility] Last Admin: 04/27/22 09:56 Dose: 1 drops Objective - Vital Signs Vital signs: Vital Signs Temp 100.4 F H 04/27/22 16:50 Pulse 92 04/27/22 16:50 Resp 17 04/27/22 16:50 BP 148/63 04/27/22 16:50 Pulse Ox 94 L 04/27/22 16:50 FiO2 Intake & Output 04/26/22 04/27/22 04/27/22 18:59 06:59 18:59 Intake Total 540 Output Total 300 250 300 Balance -300 290 -300 Intake: Oral 540 Output: Urine 300 250 300 Stool 0 Other: Voiding Method Urinal Urinal # Bowel Movements 1 - Labs CBC & Chem 7: 04/27/22 10:31 04/27/22 10:31 Labs: Abnormal Lab Results - Last 24 Hours (Table) 04/24/22 04/27/22 04/27/22 Range/Units 14:13 07:58 10:31 WBC 16.4 H (3.8-10.6) k/uL RBC 3.46 L (4.30-5.90) m/uL Hgb 9.5 L (13.0-17.5) gm/dL Hct 30.9 L (39.0-53.0) % MCHC 30.8 L (31.0-37.0) g/dL RDW 16.9 H (11.5-15.5) % Plt Count 691 H (150-450) k/uL Neutrophils # 13.8 H (1.3-7.7) k/uL Lymphocytes # 0.8 L (1.0-4.8) k/uL Monocytes # 1.2 H (0-1.0) k/uL Sodium (137-145) mmol/L Carbon Dioxide 19.4 L (20.0-27.5) mmol/L BUN 8.0 L (9.0-27.0) mg/dL Creatinine (0.66-1.25) mg/dL BUN/Creatinine Ratio 11.43 L (12.00-20.00) Ratio Calcium 8.6 L (8.7-10.3) mg/dL Magnesium 1.4 L (1.5-2.4) mg/dL Albumin (3.5-5.0) g/dL Tacrolimus 2.7 L (5.0-20.0) ng/mL 04/27/22 Range/Units 10:31 WBC (3.8-10.6) k/uL RBC (4.30-5.90) m/uL Hgb (13.0-17.5) gm/dL Hct (39.0-53.0) % MCHC (31.0-37.0) g/dL RDW (11.5-15.5) % Plt Count (150-450) k/uL Neutrophils # (1.3-7.7) k/uL Lymphocytes # (1.0-4.8) k/uL Monocytes # (0-1.0) k/uL Sodium 134 L (137-145) mmol/L Carbon Dioxide (20.0-27.5) mmol/L BUN (9.0-27.0) mg/dL Creatinine 0.65 L (0.66-1.25) mg/dL BUN/Creatinine Ratio (12.00-20.00) Ratio Calcium (8.7-10.3) mg/dL Magnesium (1.5-2.4) mg/dL Albumin 2.7 L (3.5-5.0) g/dL Tacrolimus (5.0-20.0) ng/mL
[2022-04-27] MEDS: ATORVASTATIN 10 MG TAB PO SCH (20:13)
[2022-04-27] MEDS: LATANOPROST 0.005% OPHTH DROPS 2.5 ML BTL RIGHT EYE SCH (20:13)
[2022-04-27] MEDS: GABAPENTIN 300 MG CAP PO SCH (20:13)
[2022-04-27] MEDS: MELATONIN 3 MG TABLET PO PRN (20:17)
[2022-04-27] MEDS: HYDROcodone/APAP 5-325MG 1 EACH TAB PO PRN (20:17)
[2022-04-28 06:28] LABS: Anisocytosis Slight; HCT 28.5 % (39.0-53.0); HGB 8.8 gm/dL (13.0-17.5); Hypochromasia Marked; MCH 27.4 pg (25.0-35.0); MCHC 30.9 g/dL (31.0-37.0); MCV 88.7 fL (80.0-100.0); Mean Platelet Volume 7.5; Platelet Count 564 k/uL (150-450); RBC 3.21 m/uL (4.30-5.90); RDW 16.8 % (11.5-15.5); WBC 9.2 k/uL (3.8-10.6)
[2022-04-28 06:52] LABS: African American GFR (CKD) >90 (>60 ml/min/1.73 sqM); Anion Gap 3 mmol/L; Blood Urea Nitrogen 8 mg/dL (9-20); Calcium 8.1 mg/dL (8.4-10.2); Carbon Dioxide 24 mmol/L (22-30); Chloride 105 mmol/L (98-107); Glucose 89 mg/dL (74-99); Magnesium 1.7 mg/dL (1.6-2.3); Non-African American GFR(CKD) >90 (>60 ml/min/1.73 sqM); Potassium 4.2 mmol/L (3.5-5.1); Sodium 132 mmol/L (137-145)
[2022-04-28] MEDS: SODIUM FERRIC GLUCONAT-SUCROSE 125 MG in SODIUM CHLORIDE 0.9% 100 ML IVPB SCH (08:38)
[2022-04-28] MEDS: SODIUM BICARBONATE TAB 650 MG TAB PO SCH ×2 (08:39→20:20)
[2022-04-28] MEDS: carvediloL 6.25 MG TAB PO SCH ×2 (08:39→20:19)
[2022-04-28] MEDS: hydrALAZINE HCL 25 MG TAB PO SCH ×3 (08:39→20:20)
[2022-04-28] MEDS: predniSONE 5 MG TAB PO SCH (08:39)
[2022-04-28] MEDS: TACROLIMUS 1 MG CAP PO SCH ×2 (08:39→20:19)
[2022-04-28] MEDS: PANTOPRAZOLE 40 MG TABLET PO SCH (08:39)
[2022-04-28] MEDS: MAGNESIUM OXIDE 400 MG TAB PO SCH ×2 (08:40→20:19)
[2022-04-28] MEDS: ASPIRIN 81 MG PO SCH (08:41)
[2022-04-28] MEDS: DORZOLAMIDE HCL 2% DROPS 10 ML BTL LEFT EYE SCH ×2 (08:41→20:20)
[2022-04-28] MEDS: BRIMONIDINE TARTRATE 0.2% DROPS 5 ML BTL BOTH EYES SCH ×2 (08:41→20:20)
[2022-04-28] MEDS: TIMOLOL 0.5% OPHTH DROPS 5 ML BTL BOTH EYES SCH ×2 (08:44→20:20)
--- NOTE | 2022-04-28 12:01 | P.PN ---
Subjective Patient is seen in follow-up for renal transplant management. GFR at baseline. Resting in bed. No vomiting or diarrhea. Has been voiding. No active complaints. Hemodynamically stable. Vital signs are stable. General: No acute distress. HEENT: Head exam is unremarkable. LUNGS: Breath sounds decreased. HEART: Rate and Rhythm are regular. ABDOMEN: Soft, no distention. EXTREMITITES: Left foot wrapped. No active drainage today. Objective - Vital Signs Vital signs: Vital Signs Temp 98.3 F 04/28/22 07:07 Pulse 77 04/28/22 07:07 Resp 18 04/28/22 07:07 BP 129/69 04/28/22 07:07 Pulse Ox 93 L 04/28/22 08:20 FiO2 Intake & Output 04/27/22 04/28/22 04/28/22 18:59 06:59 18:59 Intake Total 200 Output Total 300 600 Balance -300 -400 Intake: Oral 200 Output: Urine 300 600 Stool 0 Other: Voiding Method Urinal Urinal Urinal # Bowel Movements 1 - Labs CBC & Chem 7: 04/28/22 06:12 04/28/22 06:12 Labs: Abnormal Lab Results - Last 24 Hours (Table) 04/24/22 04/28/22 04/28/22 Range/Units 14:13 06:12 06:12 RBC 3.21 L (4.30-5.90) m/uL Hgb 8.8 L (13.0-17.5) gm/dL Hct 28.5 L (39.0-53.0) % MCHC 30.9 L (31.0-37.0) g/dL RDW 16.8 H (11.5-15.5) % Plt Count 564 H (150-450) k/uL Sodium 132 L (137-145) mmol/L BUN 8 L (9-20) mg/dL Creatinine 0.62 L (0.66-1.25) mg/dL Calcium 8.1 L (8.4-10.2) mg/dL Tacrolimus 2.7 L (5.0-20.0) ng/mL Assessment and Plan Plan: Assessment: 1. Status post simultaneous kidney pancreas transplant. GFR at baseline. 2. Left ankle fracture. Orthopedic surgery following. 3. Hyponatremia secondary to poor solute intake. Urine sodium less than 20. Urine osmolality 359. 4. Anemia of chronic kidney disease maintained on Aranesp. Iron deficiency noted. 5. Nonhealing foot wound on antibiotics. ID,orthopedic surgery, vascular surgery following. 6. Hypertension with chronic kidney disease. Stable. 7. Hypomagnesemia from poor intake and Prograf leading to renal magnesium losses. On oral magnesium oxide. Improved. 8. Metabolic acidosis secondary to chronic kidney disease. On oral bicarb. Better. 9. Chronic kidney disease stage I. Plan: Follow-up Prograf level. Level done 04/24/2022 was not trough. Encouraged oral intake. Avoid nephrotoxins. 1500 mL fluid restriction. Maintain IV iron. Advised to follow up outpatient 1 week post discharge.
[2022-04-28] MEDS: LEVOFLOXACIN 500 MG TAB PO SCH (15:31)
--- NOTE | 2022-04-28 15:48 | P.PN ---
Subjective Progress Note Date: 04/28/22 (delayed charting seen at 1430) Patient is a 61-year-old male with prior diabetes mellitus and ESRD status post renal and pancreatic transplant on chronic prednisone, mycophenolate, and tacrolimus, neuropathy, and multiple recent admissions were service. Patient's last admission records were reviewed. He was hospitalized 02/21/22 through 02/27/22 which resulted in diagnosis of newly discovered diastolic congestive heart failure with ejection fraction preserved at 50-55%, difficult to treat left foot osteomyelitis, and newly discovered atrial fibrillation with rapid ventricular response. He presented to the ER on 03/17/22 with complaints of left ankle pain after he twisted his ankle the day prior to admission. On arrival to the ER his vital signs were within normal limits. Lab urinalysis was remarkable for a white blood cell count of 20.1, hemoglobin 9.5, platelets 472, INR 1.4, sodium 121, BUN 28, and creatinine 1.28. In the ER he underwent an x-ray which showed acute fractures of the distal fibula with posterior angulation and tibia medial malleolus along with Charcot arthropathy. He was started on IV fluids and arrangements were made for admission. He was continued on IVF. Nephrology was consulted. His sodium improved. Orthopedic surgery who recommended nonweightbearing to the left lower extremity as well as a splint. No operative plans at this time. He spiked a fever on 04/18. Influenza A/B, RSV, and Covid testing were negative. Urinalysis was unremarkable. Chest x-ray unremarkable. Pro-calcitonin was elevated at 18.3. He was started on cefepime. Infectious disease was consulted. Patient underwent CT chest abdomen and pelvis which showed bilateral left greater than right pleural effusions with compressive atelectasis, non- rotation the ball with small bowel in the right hemiabdomen and most of the large bowel in the left hemiabdomen, transplanted kidney without renal atrophic changes of the [place] kidneys. Venous Doppler Right upper extremity without DVT. Patient procalcitonin level continued to decrease, blood cultures were negative and he was taken off cefepime and started on levaquin. On 04/27 nurse noted blood coming from splint. He was noted to have an ulceration on the plantar aspect of the left foot, lack of healing of fracture. Case discussed with ortho who recommended BKA due to recent Osteo. Vascular surgery consulted and plan is for BKA, Infectious disease is in agreement. Patient seen and examined at bedside. He is tired today and is complaining of a cough with increased sputum. He feels as if he has pneumonia. Mother and sister at bedside. All questions answered. They have questions as to if he will be approved for a prosthesis. General: Ill appearing, no distress, appears at stated age Derm: warm, dry Head: atraumatic, normocephalic, symmetric Eyes: EOMI, no lid lag, anicteric sclera Mouth: no lip lesion, mucus membranes moist Cardiovascular: S1S2 reg, no murmur, positive posterior tibial pulse bilateral, Lungs: Decreased breath sounds bilateral bases, no rhonchi, no rales , no accessory muscle use Abdominal: soft, nontender to palpation, no guarding, no appreciable organomegaly Ext: no gross muscle atrophy, no edema, no contractures Left foot with dressing in place Neuro: CN II-XI grossly intact, no focal neuro deficits Psych: Alert, oriented, appropriate affect Assessment/plan: Chronic wound left dorsum of foot Left ankle fracture complicated by Charcot joint and peripheral neuropathy -Case discussed with Dr. Garcia, Dr. Sow and Dr. Shane at length. Plan is for OR next Mon or the following Monday. With recurrent fevers will stop cell cept and increase prednisone dose. - continue with splint and non weight bearing. - pain control Cough and Fever, PNA appears improved - CXR imaging reviewed and right greater than left infiltrate, improved from prior CXR this admission - Continue levaquin and monitor. Pyrexia in the setting of immunospuression and recent chronic osteomyelitis, off abx for 6 weeks Sepsis secondary to suspected Pneumonia - Covid, Flu, and RSV negative - ID recs appreciated. Anemia of chronic disease -Hemoglobin has dropped approximately 2 g last 2 months -Status post IV iron X 2, 2 more doses -Follow CBC Immunocompromised status secondary to pancreatic renal transplant - prednisone (dose doubled on 04/28), tacrolimus, mycophenolate (on hold) -nephrology recs appreciated Diastolic congestive heart failure with ejection fraction 50-55% Hypertension Paroxysmal Atrial fibrillation, eliquis on hold - meds reviewed - monitor HR Prior diabetes with diabetic neuropathy - Follow blood sugars closely - A1C 5.6 Dyslipidemia -Lovastatin Recent prolonged Left foot osteomyelitis, currently off antibiotics Hyponatremia,resolved D/W social work ideally discharge to SNF to increased strength before surgery, They will look into insurance implications and d/w SNF. DVT prophylaxis: SCDs Discussed with: patient, nursing, Anticipated discharge date: in AM Anticipated discharge place: SNF A total of 32 minutes was spent on the care of this complex patient more than 50% of the time was spent in counseling and care coordination. Active Medications Generic Name Dose Route Start Last Admin Trade Name Freq PRN Reason Stop Dose Admin Acetaminophen 650 mg 04/16/22 17:40 04/27/22 17:05 Acetaminophen Tab 325 Mg Tab PO 650 mg Q6HR PRN Administration Mild Pain or Fever > 100.5 Hydrocodone Bitart/Acetaminophen 1 each 04/16/22 17:40 04/27/22 20:17 Hydrocodone/Apap 5-325mg 1 Each Tab PO 1 each Q4HR PRN Administration Moderate Pain (Scale 4 to 6) Aspirin 81 mg 04/17/22 09:00 04/28/22 08:41 Aspirin 81 Mg PO 81 mg DAILY [facility] Administration Atorvastatin Calcium 10 mg 04/16/22 22:45 04/27/22 20:13 Atorvastatin 10 Mg Tab PO 10 mg HS [facility] Administration Bisacodyl 5 mg 04/16/22 17:40 04/20/22 11:18 Bisacodyl 5 Mg Tablet.Dr PO 5 mg DAILY PRN Administration Constipation Brimonidine Tartrate 1 drops 04/16/22 22:45 04/28/22 08:41 Brimonidine Tartrate 0.2% Drops 5 Ml Btl BOTH EYES 1 drops BID [facility] Administration Carvedilol 6.25 mg 04/17/22 09:00 04/28/22 08:39 Carvedilol 6.25 Mg Tab PO 6.25 mg BID [facility] Administration Darbepoetin Eitan 40 mcg 04/18/22 12:00 04/25/22 12:01 Darbepoetin Eitan 40 Mcg/0.4 Ml Syringe SQ 40 mcg Q7D [facility] Administration Dorzolamide HCl 1 drops 04/16/22 22:45 04/28/22 08:41 Dorzolamide Hcl 2% Drops 10 Ml Btl LEFT EYE 1 drops BID [facility] Administration Gabapentin 300 mg 04/16/22 22:45 04/27/22 20:13 Gabapentin 300 Mg Cap PO 300 mg HS [facility] Administration Hydralazine HCl 25 mg 04/16/22 22:45 04/28/22 08:39 Hydralazine Hcl 25 Mg Tab PO 25 mg TID [facility] Administration Ferric Sodium Gluconate 125 mg 110 mls @ 100 mls/hr 04/26/22 09:45 04/28/22 08:38 / Sodium Chloride IVPB 04/29/22 09:46 100 mls/hr DAILY [facility] Administration Latanoprost 1 drops 04/16/22 22:45 04/27/22 20:13 Latanoprost 0.005% Ophth Drops 2.5 Ml Btl RIGHT EYE 1 drops HS [facility] Administration Levofloxacin 500 mg 04/27/22 17:00 04/27/22 17:05 Levofloxacin 500 Mg Tab PO 500 mg Q24H [facility] Administration Protocol Magnesium Oxide 400 mg 04/26/22 09:45 04/28/22 08:40 Magnesium Oxide 400 Mg Tab PO 400 mg BID [facility] Administration Melatonin 3 mg 04/16/22 17:40 04/27/22 20:17 Melatonin 3 Mg Tablet PO 3 mg HS PRN Administration Insomnia Morphine Sulfate 4 mg 04/16/22 17:40 04/17/22 06:52 Morphine Sulfate 4 Mg/Ml Syringe IVP 4 mg Q4HR PRN Administration Severe Pain (Scale 7 to 10) Naloxone HCl 0.2 mg 04/16/22 17:08 Naloxone 0.4 Mg/Ml 1 Ml Vial IV Q2M PRN Opioid Reversal Nifedipine 60 mg 04/17/22 09:00 04/28/22 08:39 Nifedipine Xl 60 Mg Tab.Er.24 PO 60 mg BID [facility] Administration Ondansetron HCl 4 mg 04/16/22 17:08 Ondansetron 4 Mg/2 Ml Vial IVP Q8HR PRN Nausea And Vomiting Ondansetron HCl 4 mg 04/27/22 08:46 04/27/22 08:56 Ondansetron 4 Mg Tab PO 4 mg Q8HR PRN Administration Nausea And Vomiting Pantoprazole Sodium 40 mg 04/17/22 07:30 04/28/22 08:39 Pantoprazole 40 Mg Tablet PO 40 mg AC-BRKFST [facility] Administration Prednisone 10 mg 04/29/22 09:00 Prednisone 10 Mg Tab PO DAILY [facility] Sodium Bicarbonate 650 mg 04/26/22 09:45 04/28/22 08:39 Sodium Bicarbonate Tab 650 Mg Tab PO 650 mg BID [facility] Administration Tacrolimus 1 mg 04/24/22 21:00 04/28/22 08:39 Tacrolimus 1 Mg Cap PO 1 mg BID [facility] Administration Timolol Maleate 1 drops 04/16/22 23:00 04/28/22 08:44 Timolol 0.5% Ophth Drops 5 Ml Btl BOTH EYES 1 drops BID [facility] Administration Objective - Vital Signs Vital signs: Vital Signs Temp 99.0 F 04/28/22 14:07 Pulse 88 04/28/22 14:07 Resp 19 04/28/22 14:07 BP 128/55 04/28/22 14:07 Pulse Ox 97 04/28/22 14:07 FiO2 Intake & Output 04/27/22 04/28/22 04/28/22 18:59 06:59 18:59 Intake Total 200 Output Total 300 600 Balance -300 -400 Intake: Oral 200 Output: Urine 300 600 Stool 0 Other: Voiding Method Urinal Urinal Urinal # Bowel Movements 1 - Labs CBC & Chem 7: 04/28/22 06:12 04/28/22 06:12 Labs: Abnormal Lab Results - Last 24 Hours (Table) 04/24/22 04/28/22 04/28/22 Range/Units 14:13 06:12 06:12 RBC 3.21 L (4.30-5.90) m/uL Hgb 8.8 L (13.0-17.5) gm/dL Hct 28.5 L (39.0-53.0) % MCHC 30.9 L (31.0-37.0) g/dL RDW 16.8 H (11.5-15.5) % Plt Count 564 H (150-450) k/uL Sodium 132 L (137-145) mmol/L BUN 8 L (9-20) mg/dL Creatinine 0.62 L (0.66-1.25) mg/dL Calcium 8.1 L (8.4-10.2) mg/dL Tacrolimus 2.7 L (5.0-20.0) ng/mL
--- NOTE | 2022-04-28 15:49 | P.PN ---
Subjective Progress Note Date: 04/28/22 Patient seen and examined today. No complaints. Has had time to think and does believe he would like to go forward with below-knee amputation. Objective - Vital Signs Vital signs: Vital Signs Temp 99.0 F 04/28/22 14:07 Pulse 88 04/28/22 14:07 Resp 19 04/28/22 14:07 BP 128/55 04/28/22 14:07 Pulse Ox 97 04/28/22 14:07 FiO2 Intake & Output 04/27/22 04/28/22 04/28/22 18:59 06:59 18:59 Intake Total 200 Output Total 300 600 Balance -300 -400 Intake: Oral 200 Output: Urine 300 600 Stool 0 Other: Voiding Method Urinal Urinal Urinal # Bowel Movements 1 - Exam No acute distress resting comfortably. HEENT is normocephalic, chronically ill- appearing. Heart appears regular. Lungs are clear bilaterally with improvement of coarse breath sounds. Abdomen is soft. Extremity show no clubbing or cyanosis. There is a left lower extremity splint in place - Labs CBC & Chem 7: 04/28/22 06:12 04/28/22 06:12 Labs: Abnormal Lab Results - Last 24 Hours (Table) 04/28/22 04/28/22 Range/Units 06:12 06:12 RBC 3.21 L (4.30-5.90) m/uL Hgb 8.8 L (13.0-17.5) gm/dL Hct 28.5 L (39.0-53.0) % MCHC 30.9 L (31.0-37.0) g/dL RDW 16.8 H (11.5-15.5) % Plt Count 564 H (150-450) k/uL Sodium 132 L (137-145) mmol/L BUN 8 L (9-20) mg/dL Creatinine 0.62 L (0.66-1.25) mg/dL Calcium 8.1 L (8.4-10.2) mg/dL Assessment and Plan Assessment: Charcot joint Peripheral neuropathy Chronic nonhealing wound chronic osteomyelitis Left ankle fracture Immunosuppression Status post renal pancreatic transplant Plan: At this point the patient would be amenable to going forward with a left below- knee amputation. On discussion was had with medicine as well as nephrology regarding possible medication adjustments to try and help with perioperative wound healing with his immunosuppressive medications. We will plan to see about timing, medicine to discuss with case management regarding rehab and short-term follow-up to allow time for medication changes and then outpatient admission for surgical intervention. We'll no further once further discussions had, if time allows and schedule, may be able to do as early as next week otherwise. It is not emergent at this time is all chronic
--- NOTE | 2022-04-28 16:55 | XR ---
EXAMINATION TYPE: XR chest 1V portable DATE OF EXAM: 04/28/2022 COMPARISON: 04/21/2022 HISTORY: Short of breath TECHNIQUE: Single view FINDINGS: There is some coarse pulmonary interstitial infiltrate. There is some coalescent density le ft lower lobe. There is left central venous catheter with tip in the superior vena cava. Heart size i s normal. IMPRESSION: There is some mild pulmonary interstitial edema and left lower lobe infiltrate. There is significant improvement in the pulmonary edema compared to old exam.
[2022-04-28] MEDS: HYDROcodone/APAP 5-325MG 1 EACH TAB PO PRN (18:35)
[2022-04-28] MEDS: GABAPENTIN 300 MG CAP PO SCH (20:19)
[2022-04-28] MEDS: LATANOPROST 0.005% OPHTH DROPS 2.5 ML BTL RIGHT EYE SCH (20:20)
[2022-04-28] MEDS: ATORVASTATIN 10 MG TAB PO SCH (20:20)
[2022-04-28] MEDS: MORPHINE SULFATE 4 MG/ML SYRINGE IVP PRN (20:21)
--- NOTE | 2022-04-28 20:27 | P.PN ---
Subjective Progress Note Date: 04/28/22 Principal diagnosis: Fever Patient is a 61-year-old male with a past medical history for end- stage renal disease patient is status post renal and pancreas transplant on i mmunosuppressive medication also has history of left foot plantar wound and osteomyelitis for the patient is currently his antibiotic therapy patient presented to hospital for left ankle pain has been diagnosed with a fractured treated medically also spiked a fever and did have elevated white count. On today's evaluation and that is 04/28/2022 patient continues to be afebrile, the patient is breathing comfortably on room air, the patient denies chest pain , the patient did have occasional dry cough, patient denies nausea no vomiting no abdominal pain no diarrhea, patient denies any worsening pain to the left ankle and foot area Objective - Vital Signs Vital signs: Vital Signs Temp 98.3 F 04/28/22 07:07 Pulse 77 04/28/22 07:07 Resp 18 04/28/22 07:07 BP 129/69 04/28/22 07:07 Pulse Ox 93 L 04/28/22 08:20 FiO2 Intake & Output 04/27/22 04/28/22 04/28/22 18:59 06:59 18:59 Intake Total 200 Output Total 300 600 Balance -300 -400 Intake: Oral 200 Output: Urine 300 600 Stool 0 Other: Voiding Method Urinal Urinal Urinal # Bowel Movements 1 - Exam GENERAL DESCRIPTION: Middle-aged male lying in bed in no distress RESPIRATORY SYSTEM: Unlabored breathing , decreased breath sounds at bases HEART: S1 S2 regular rate and rhythm , ABDOMEN: Soft , mild distention and tenderness EXTREMITIES: Patient left ankle foot is currently dressed no drainage on the dressing - Labs CBC & Chem 7: 04/28/22 06:12 04/28/22 06:12 Labs: Abnormal Lab Results - Last 24 Hours (Table) 04/24/22 04/28/22 04/28/22 Range/Units 14:13 06:12 06:12 RBC 3.21 L (4.30-5.90) m/uL Hgb 8.8 L (13.0-17.5) gm/dL Hct 28.5 L (39.0-53.0) % MCHC 30.9 L (31.0-37.0) g/dL RDW 16.8 H (11.5-15.5) % Plt Count 564 H (150-450) k/uL Sodium 132 L (137-145) mmol/L BUN 8 L (9-20) mg/dL Creatinine 0.62 L (0.66-1.25) mg/dL Calcium 8.1 L (8.4-10.2) mg/dL Tacrolimus 2.7 L (5.0-20.0) ng/mL Assessment and Plan (1) Leukocytosis Current Visit: Yes Status: Acute Code(s): D72.829 - ELEVATED WHITE BLOOD CELL COUNT, UNSPECIFIED SNOMED Code(s): 859463322 (2) Fever Current Visit: No Status: Acute Code(s): R50.9 - FEVER, UNSPECIFIED SNOMED Code(s): 662371156 Plan: 1patient with a fever which is likely multifactorial in this patient with abnormal x-ray and procalcitonin possible component of pneumonia received adequate cefepime 2 patient did [address] a [address] chest abdominal pelvis did show some effusion no conso lidation or acute normality inside abdominal 3the patient persistent leukocytosis more likely related to the left ankle hematoma related to his trauma as a white count has normalized after apparent spontaneous drainage of the hematoma yesterday is currently on oral Levaquin to continue and monitor clinical course closely Time with Patient: Less than 30
[2022-04-28] MEDS: MELATONIN 3 MG TABLET PO PRN (20:32)
[2022-04-29] MEDS: ACETAMINOPHEN TAB 325 MG TAB PO PRN (06:21)
[2022-04-29 07:08] LABS: Anisocytosis Slight; HGB 9.1 gm/dL (13.0-17.5); Hypochromasia Moderate; MCH 27.6 pg (25.0-35.0); MCHC 31.3 g/dL (31.0-37.0); MCV 88.3 fL (80.0-100.0); Mean Platelet Volume 7.5; Platelet Count 602 k/uL (150-450); RBC 3.28 m/uL (4.30-5.90); RDW 16.7 % (11.5-15.5); WBC 12.6 k/uL (3.8-10.6)
[2022-04-29 07:08] LABS: ALT 12 U/L (4-49); AST 30 U/L (17-59); African American GFR (CKD) >90 (>60 ml/min/1.73 sqM); Albumin 2.7 g/dL (3.5-5.0); Albumin/Globulin Ratio 0.7; Alkaline Phosphatase 91 U/L (38-126); Anion Gap 2 mmol/L; Blood Urea Nitrogen 10 mg/dL (9-20); Calcium 8.2 mg/dL (8.4-10.2); Carbon Dioxide 26 mmol/L (22-30); Chloride 103 mmol/L (98-107); Globulin 3.8 g/dL; Glucose 96 mg/dL (74-99); Non-African American GFR(CKD) >90 (>60 ml/min/1.73 sqM); Potassium 4.6 mmol/L (3.5-5.1); Sodium 131 mmol/L (137-145); Total Bilirubin 0.4 mg/dL (0.2-1.3); Total Protein 6.5 g/dL (6.3-8.2)
[2022-04-29 07:53] VITALS: BP 119/64; PULSE 70; RESP 16; TEMP 97.5
[2022-04-29] MEDS ORDERED: predniSONE 10 MG TAB PO SCH (09:00)
[2022-04-29] MEDS: carvediloL 6.25 MG TAB PO SCH (09:53)
[2022-04-29] MEDS: SODIUM BICARBONATE TAB 650 MG TAB PO SCH (09:53)
[2022-04-29] MEDS: PANTOPRAZOLE 40 MG TABLET PO SCH (09:53)
[2022-04-29] MEDS: ASPIRIN 81 MG PO SCH (09:53)
[2022-04-29] MEDS: MAGNESIUM OXIDE 400 MG TAB PO SCH (09:54)
[2022-04-29] MEDS: SODIUM FERRIC GLUCONAT-SUCROSE 125 MG in SODIUM CHLORIDE 0.9% 100 ML IVPB SCH (09:54)
[2022-04-29] MEDS: hydrALAZINE HCL 25 MG TAB PO SCH ×2 (09:54→17:32)
[2022-04-29] MEDS: TACROLIMUS 1 MG CAP PO SCH (09:55)
[2022-04-29] MEDS: DORZOLAMIDE HCL 2% DROPS 10 ML BTL LEFT EYE SCH (09:56)
[2022-04-29] MEDS: BRIMONIDINE TARTRATE 0.2% DROPS 5 ML BTL BOTH EYES SCH (09:56)
[2022-04-29] MEDS: TIMOLOL 0.5% OPHTH DROPS 5 ML BTL BOTH EYES SCH (09:56)
[2022-04-29] MEDS: HYDROcodone/APAP 5-325MG 1 EACH TAB PO PRN (10:05)
--- NOTE | 2022-04-29 12:10 | P.DS ---
Providers Date of admission: 04/16/22 17:09 Expected date of discharge: 04/29/22 Attending physician: Rosy Lino DO Consults: 04/16/22 17:08 Consult Physician Routine Consulting Provider: Silvano Stevens Consult Reason/Comments: bimalleolar ankle fx Do you want consulting provider notified?: Already Contacted 04/16/22 17:41 Consult Physician Routine Consulting Provider: Ashli An Consult Reason/Comments: renal transplant patient Do you want consulting provider notified?: Yes 04/19/22 08:12 Consult Physician Routine Consulting Provider: Carlos Sow Consult Reason/Comments: fevers Do you want consulting provider notified?: Yes 04/27/22 12:24 Consult Physician Routine Consulting Provider: Tiffanie Garcia Consult Reason/Comments: wound, ankle fracture Do you want consulting provider notified?: Yes Primary care physician: Devon Brand MD Hospital Course: Discharge Diagnosis: Chronic wound left dorsum of foot Left ankle fracture complicated by Charcot joint and peripheral neuropathy Pyrexia in the setting of immunospuression and recent chronic osteomyelitis, off abx for 6 weeks Sepsis secondary to Pneumonia- improved on x-ray Anemia of chronic disease Immunocompromised status secondary to pancreatic renal transplant- prednisone (dose doubled on 04/28), tacrolimus, mycophenolate (on hold) Diastolic congestive heart failure with ejection fraction 50-55% Hypertension Paroxysmal Atrial fibrillation, eliquis on hold Prior diabetes with diabetic neuropathy Dyslipidemia Recent prolonged Left foot osteomyelitis, currently off antibiotics Hyponatremia,resolved Hospital Course: Patient is a 61-year-old male with prior diabetes mellitus and ESRD status post renal and pancreatic transplant on chronic prednisone, mycophenolate, and tacrolimus, neuropathy, and multiple recent admissions were service. Patient's last admission records were reviewed. He was hospitalized 02/21/22 through 02/27/22 which resulted in diagnosis of newly discovered diastolic congestive heart failure with ejection fraction preserved at 50-55%, difficult to treat left foot osteomyelitis, and newly discovered atrial fibrillation with rapid ventricular response. He presented to the ER on 03/17/22 with complaints of left ankle pain after he twisted his ankle the day prior to admission. On arrival to the ER his vital signs were within normal limits. Lab urinalysis was remarkable for a white blood cell count of 20.1, hemoglobin 9.5, platelets 472, INR 1.4, sodium 121, BUN 28, and creatinine 1.28. In the ER he underwent an x-ray which showed acute fractures of the distal fibula with posterior angulation and tibia medial malleolus along with Charcot arthropathy. He was started on IV fluids and arrangements were made for admission. He was continued on IVF. Nephrology was consulted. His sodium improved. Orthopedic surgery who recommended nonweightbearing to the left lower extremity as well as a splint. No operative plans at this time. He spiked a fever on 04/18. Influenza A/B, RSV, and Covid testing were negative. Urinalysis was unremarkable. Chest x-ray unremarkable. Pro-calcitonin was elevated at 18.3. He was started on cefepime. Infectious disease was consulted. Patient underwent CT chest abdomen and pelvis which showed bilateral left greater than right pleural effusions with compressive atelectasis, non- rotation the ball with small bowel in the right hemiabdomen and most of the large bowel in the left hemiabdomen, transplanted kidney without renal atrophic changes of the [place] kidneys. Venous Doppler Right upper extremity without DVT. Patient procalcitonin level continued to decrease, blood cultures were negative and he was taken off cefepime and started on levaquin. On 04/27 nurse noted blood coming from splint. He was noted to have an ulceration on the plantar aspect of the left foot, lack of healing of fracture. Case discussed with ortho who recommended BKA due to recent Osteo. Vascular surgery consulted and plan is for BKA, Infectious disease is in agreement. Plan is for discharge to custodial facility with planned readmission for BKA late next week or early the week after. Patient will be off cellcept prior to surgery and on prednisone 10 mg daily. He will take avelox until surgery. Follow-up: Dr. Card on 05/04/21. Planned readmission for BKA. Non wieght bearing left lower extremity. CBC and BMP in 3-5 days Patient seen and examined at bedside. Doing well, cough is better than yesterday, no shortness of breath. Vital signs reviewed and stable. General: nontoxic, no distress, appears at stated age Derm: warm, dry Head: atraumatic, normocephalic, symmetric Eyes: EOMI, no lid lag, anicteric sclera Mouth: no lip lesion, mucus membranes moist Cardiovascular: S1S2 reg, no murmur, positive posterior tibial pulse bilateral, Lungs: CTA bilateral, no rhonchi, no rales , no accessory muscle use Abdominal: soft, nontender to palpation, no guarding, no appreciable organomegaly Ext: no gross muscle atrophy, no edema, no contractures, left leg with dressing in place. Neuro: CN II-XI grossly intact, no focal neuro deficits Psych: Alert, oriented, appropriate affect A total of 37 minutes of time were spent preparing this complex discharge summary. Patient was discharged on 04/29/22. Patient Condition at Discharge: Stable Plan - Discharge Summary Discharge Rx Participant: Yes New Discharge Prescriptions: New HYDROcodone/APAP 5-325MG [[place] 5-325] 1 each PO Q4HR PRN #12 tab PRN Reason: Moderate Pain (Scale 4 To 6) predniSONE 10 mg PO DAILY tab Sodium Bicarbonate Tab 650 mg PO BID tab Moxifloxacin HCl [Avelox] 400 mg PO DAILY #12 tab guaiFENesin [Mucinex] 600 mg PO Q12H #60 tab Continue Aspirin 81 mg PO DAILY Multivitamin [Men's Multi-Vitamin] 1 tab PO DAILY Dorzolamide 2% [Trusopt 2%] 1 drop LEFT EYE BID carvediloL [Coreg] 6.25 mg PO BID Brimonidine Tartrate/Timolol [Combigan 0.2%-0.5% Eye Drops] 1 drop BOTH EYES BID Gabapentin 300 mg PO HS #3 cap Cholecalciferol [Vitamin D3 (25 Mcg = 1000 Iu)] 25 mcg PO DAILY Bimatoprost [Lumigan 0.01% Ophth Soln] 1 drop RIGHT EYE HS Tacrolimus [Prograf] 1 mg PO BID Magnesium Oxide [Mag-Ox] 400 mg PO DAILY Ondansetron Odt [Zofran ODT] 4 mg PO Q8HR PRN PRN Reason: Nausea NIFEdipine XL [Procardia XL] 60 mg PO BID hydrALAZINE HCL [Apresoline] 25 mg PO TID tab Folic Acid 0.8 mg PO DAILY Apixaban [Eliquis] 5 mg PO BID #60 tab traMADol HCL 50 mg PO Q6H PRN PRN Reason: Pain Sodium Polystyrene Sulfonate [Kayexalate] 15 gm PO Q14D Lovastatin [Mevacor] 20 mg PO HS Changed Furosemide [Lasix] 40 mg PO DAILY #60 tab Discontinued predniSONE 5 mg PO DAILY mycophenolate mofetiL [Cellcept] 500 mg PO BID Discharge Medication List Aspirin 81 mg PO DAILY 09/27/13 [History] Multivitamin [Men's Multi-Vitamin] 1 tab PO DAILY 09/27/13 [History] Dorzolamide 2% [Trusopt 2%] 1 drop LEFT EYE BID 12/02/14 [History] carvediloL [Coreg] 6.25 mg PO BID 02/15/18 [History] Brimonidine Tartrate/Timolol [Combigan 0.2%-0.5% Eye Drops] 1 drop BOTH EYES BID 11/25/21 [History] NIFEdipine XL [Procardia XL] 60 mg PO BID 11/25/21 [History] Gabapentin 300 mg PO HS #3 cap 01/19/22 [Rx] hydrALAZINE HCL [Apresoline] 25 mg PO TID tab 01/19/22 [Rx] Bimatoprost [Lumigan 0.01% Ophth Soln] 1 drop RIGHT EYE HS 02/21/22 [History] Cholecalciferol [Vitamin D3 (25 Mcg = 1000 Iu)] 25 mcg PO DAILY 02/21/22 [History] Folic Acid 0.8 mg PO DAILY 02/21/22 [History] Apixaban [Eliquis] 5 mg PO BID #60 tab 02/27/22 [Rx] Lovastatin [Mevacor] 20 mg PO HS 04/13/22 [History] Magnesium Oxide [Mag-Ox] 400 mg PO DAILY 04/13/22 [History] Sodium Polystyrene Sulfonate [Kayexalate] 15 gm PO Q14D 04/13/22 [History] Tacrolimus [Prograf] 1 mg PO BID 04/13/22 [History] traMADol HCL 50 mg PO Q6H PRN 04/13/22 [History] Ondansetron Odt [Zofran ODT] 4 mg PO Q8HR PRN 04/16/22 [History] Furosemide [Lasix] 40 mg PO DAILY #60 tab 04/26/22 [Rx] HYDROcodone/APAP 5-325MG [[place] 5-325] 1 each PO Q4HR PRN #12 tab 04/29/22 [Rx] Moxifloxacin HCl [Avelox] 400 mg PO DAILY #12 tab 04/29/22 [Rx] Sodium Bicarbonate Tab 650 mg PO BID tab 04/29/22 [Rx] guaiFENesin [Mucinex] 600 mg PO Q12H #60 tab 04/29/22 [Rx] predniSONE 10 mg PO DAILY tab 04/29/22 [Rx] Follow up Appointment(s)/Referral(s): Devon Brand MD [Primary Care Provider] - 1 Week (PLEASE CALL AND SCHEDULE APPOINTMENT.) [facility] - As Needed Tiffanie Garcia DO [STAFF PHYSICIAN] - 05/04/22 Patient Instructions/Handouts: Moxifloxacin (By mouth), Ankle Fracture (DC), Fever in Adults (GEN) Activity/Diet/Wound Care/Special Instructions: Activity: Non weightbearing elevate and ice and ankle Diet: heart healthy Wound Care: keep pressure dressing on left foot. Special Instructions: CBC and BMP in 3-5 days HX: Anemia and metabolic acidosis Planned readmission for BKA left leg-- Surgery likely either 05/06/21 or 05/11/21 Discharge Disposition: HOME WITH HOME HEALTH SERVICES
[2022-04-29] MEDS ORDERED: SODIUM CHLORIDE TAB 1 GM TAB PO STA (14:54)
--- NOTE | 2022-04-29 14:54 | P.PN ---
Subjective Patient is seen in follow-up for renal transplant management. GFR at baseline. Resting in bed. No vomiting or diarrhea. Has been voiding. No active complaints. Hemodynamically stable. Vital signs are stable. General: No acute distress. HEENT: Head exam is unremarkable. LUNGS: Breath sounds decreased. HEART: Rate and Rhythm are regular. ABDOMEN: Soft, no distention. EXTREMITITES: Left foot wrapped. No active drainage noted. Objective - Vital Signs Vital signs: Vital Signs Temp 97.5 F L 04/29/22 07:23 Pulse 70 04/29/22 07:23 Resp 16 04/29/22 07:23 BP 119/64 04/29/22 07:23 Pulse Ox 90 L 04/29/22 07:23 FiO2 Intake & Output 04/28/22 04/29/22 04/29/22 18:59 06:59 18:59 Intake Total 240 Output Total 200 Balance -200 240 Weight 54.431 kg Intake: Oral 240 Output: Urine 200 Stool 0 Other: Voiding Method Urinal Urinal # Voids 0 - Labs CBC & Chem 7: 04/29/22 06:28 04/29/22 06:24 Labs: Abnormal Lab Results - Last 24 Hours (Table) 04/29/22 04/29/22 Range/Units 06:24 06:28 WBC 12.6 H (3.8-10.6) k/uL RBC 3.28 L (4.30-5.90) m/uL Hgb 9.1 L (13.0-17.5) gm/dL Hct 29.0 L (39.0-53.0) % RDW 16.7 H (11.5-15.5) % Plt Count 602 H (150-450) k/uL Sodium 131 L (137-145) mmol/L Calcium 8.2 L (8.4-10.2) mg/dL Albumin 2.7 L (3.5-5.0) g/dL Assessment and Plan Plan: Assessment: 1. Status post simultaneous kidney pancreas transplant. GFR at baseline. 2. Left ankle fracture. Orthopedic surgery following. 3. Hyponatremia secondary to poor solute intake. Urine sodium less than 20. Urine osmolality 359. 4. Anemia of chronic kidney disease maintained on Aranesp. Iron deficiency noted. 5. Nonhealing foot wound on antibiotics. ID,orthopedic surgery, vascular surgery following. Possible amputation in the near future. 6. Hypertension with chronic kidney disease. Stable. 7. Hypomagnesemia from poor intake and Prograf leading to renal magnesium losses. On oral magnesium oxide. Improved. 8. Metabolic acidosis secondary to chronic kidney disease. On oral bicarb. Better. 9. Chronic kidney disease stage I. Plan: Prograf level 7.4 dated 04/27/2022. Encouraged oral intake. Avoid nephrotoxins. 1500 mL fluid restriction. Hold CellCept due to foot infection. Increase dose of prednisone to 10 mg once daily. Advised to follow up outpatient 1 week post discharge.
--- NOTE | 2022-04-29 16:04 | P.PN ---
Subjective Progress Note Date: 04/29/22 Principal diagnosis: Fever Patient is a 61-year-old male with a past medical history for end- stage renal disease patient is status post renal and pancreas transplant on i mmunosuppressive medication also has history of left foot plantar wound and osteomyelitis for the patient is currently his antibiotic therapy patient presented to hospital for left ankle pain has been diagnosed with a fractured treated medically also spiked a fever and did have elevated white count. On today's evaluation and that is 04/29/2022 patient did have a low-grade fever 100.2 earlier this morning however the patient is afebrile since then, the patient is breathing comfortably on 2 L nasal cannula, the patient denies chest pain , the patient did have occasional cough but no sputum production, patient denies nausea no vomiting no abdominal pain no diarrhea, patient denies any worsening pain to the left ankle and foot area Objective - Vital Signs Vital signs: Vital Signs Temp 97.5 F L 04/29/22 07:23 Pulse 70 04/29/22 07:23 Resp 16 04/29/22 07:23 BP 119/64 04/29/22 07:23 Pulse Ox 90 L 04/29/22 07:23 FiO2 Intake & Output 04/28/22 04/29/22 04/29/22 18:59 06:59 18:59 Intake Total 240 Output Total 200 Balance -200 240 Intake: Oral 240 Output: Urine 200 Stool 0 Other: Voiding Method Urinal Urinal # Voids 0 - Exam GENERAL DESCRIPTION: Middle-aged male lying in bed in no distress RESPIRATORY SYSTEM: Unlabored breathing , decreased breath sounds at bases HEART: S1 S2 regular rate and rhythm , ABDOMEN: Soft , mild distention and tenderness EXTREMITIES: Patient left ankle foot is currently dressed no drainage on the dressing - Labs CBC & Chem 7: 04/29/22 06:28 04/29/22 06:24 Labs: Abnormal Lab Results - Last 24 Hours (Table) 04/29/22 04/29/22 Range/Units 06:24 06:28 WBC 12.6 H (3.8-10.6) k/uL RBC 3.28 L (4.30-5.90) m/uL Hgb 9.1 L (13.0-17.5) gm/dL Hct 29.0 L (39.0-53.0) % RDW 16.7 H (11.5-15.5) % Plt Count 602 H (150-450) k/uL Sodium 131 L (137-145) mmol/L Calcium 8.2 L (8.4-10.2) mg/dL Albumin 2.7 L (3.5-5.0) g/dL Assessment and Plan (1) Leukocytosis Current Visit: Yes Status: Acute Code(s): D72.829 - ELEVATED WHITE BLOOD CELL COUNT, UNSPECIFIED SNOMED Code(s): 732964265 (2) Fever Current Visit: No Status: Acute Code(s): R50.9 - FEVER, UNSPECIFIED SNOMED Code(s): 575073168 Plan: 1patient with a fever which is likely multifactorial in this patient with abnormal x-ray and procalcitonin possible component of pneumonia received adequate cefepime 2 [address] a [address] chest abdominal pelvis did show some effusion no consolidation or acute normality inside abdominal 3the patient persistent leukocytosis more likely related to the left ankle hematoma related to his trauma as a white count has normalized after apparent spontaneous drainage of the hematoma, white count is slightly up today could be related to the increased dose of prednisone is scheduled for left below the knee amputation next week will give a short course of oral Avelox for pneumonia and a close outpatient follow-up and discuss with the admitting physician working on d ischarge Time with Patient: Less than 30
--- NOTE | 2022-04-29 16:05 | P.PN ---
Subjective Progress Note Date: 04/29/22 Patient is sitting in bed, resting comfortably. He voices no complaints. Objective - Vital Signs Vital signs: Vital Signs Temp 97.5 F L 04/29/22 07:23 Pulse 70 04/29/22 07:23 Resp 16 04/29/22 07:23 BP 119/64 04/29/22 07:23 Pulse Ox 90 L 04/29/22 07:23 FiO2 Intake & Output 04/28/22 04/29/22 04/29/22 18:59 06:59 18:59 Intake Total 240 Output Total 200 Balance -200 240 Weight 54.431 kg Intake: Oral 240 Output: Urine 200 Stool 0 Other: Voiding Method Urinal Urinal # Voids 0 - Exam Vital signs are stable patient is afebrile The patient's right foot dressings were taken down. There is no drainage from the wound. The wound was probed and no additional fluid or purulent drainage was expressed with probing of the wound. The wound was then packed and redressed. - Labs CBC & Chem 7: 04/29/22 06:28 04/29/22 06:24 Labs: Abnormal Lab Results - Last 24 Hours (Table) 04/29/22 04/29/22 Range/Units 06:24 06:28 WBC 12.6 H (3.8-10.6) k/uL RBC 3.28 L (4.30-5.90) m/uL Hgb 9.1 L (13.0-17.5) gm/dL Hct 29.0 L (39.0-53.0) % RDW 16.7 H (11.5-15.5) % Plt Count 602 H (150-450) k/uL Sodium 131 L (137-145) mmol/L Calcium 8.2 L (8.4-10.2) mg/dL Albumin 2.7 L (3.5-5.0) g/dL Assessment and Plan Assessment: #1: Open wound right foot secondary to diabetic vascular disease. Plan: 1: Continue local wound care and IV antibiotics. 2: We'll continue to follow. Time with Patient: Less than 30
--- NOTE | 2022-04-29 16:31 | P.PN ---
Subjective Progress Note Date: 04/29/22 Patient resting comfortably in bed. Objective - Vital Signs Vital signs: Vital Signs Temp 97.5 F L 04/29/22 07:23 Pulse 70 04/29/22 07:23 Resp 16 04/29/22 07:23 BP 119/64 04/29/22 07:23 Pulse Ox 90 L 04/29/22 07:23 FiO2 Intake & Output 04/28/22 04/29/22 04/29/22 18:59 06:59 18:59 Intake Total 240 Output Total 200 Balance -200 240 Weight 54.431 kg Intake: Oral 240 Output: Urine 200 Stool 0 Other: Voiding Method Urinal Urinal # Voids 0 - Labs CBC & Chem 7: 04/29/22 06:28 04/29/22 06:24 Labs: Abnormal Lab Results - Last 24 Hours (Table) 04/29/22 04/29/22 Range/Units 06:24 06:28 WBC 12.6 H (3.8-10.6) k/uL RBC 3.28 L (4.30-5.90) m/uL Hgb 9.1 L (13.0-17.5) gm/dL Hct 29.0 L (39.0-53.0) % RDW 16.7 H (11.5-15.5) % Plt Count 602 H (150-450) k/uL Sodium 131 L (137-145) mmol/L Calcium 8.2 L (8.4-10.2) mg/dL Albumin 2.7 L (3.5-5.0) g/dL Assessment and Plan Assessment: Will need below the knee amputation in the near future, possibly as an outpatient. Plan: Continue supportive care. We'll continue to follow. Anticipate outpatient scheduling of amputation. Time with Patient: Less than 30
== END 2022-04-29 17:45 | DRG 562 ==
LOC: EC 11:42 → 5NMEDONC 17:09
PROVIDERS: ADMIT Internal Medicine; ATTEND Internal Medicine
DX: S82.842A Displaced bimalleolar fracture of left lower leg, initial encounter for closed fracture (principal); A41.9 Sepsis, unspecified organism; J18.9 Pneumonia, unspecified organism; D84.9 Immunodeficiency, unspecified; D89.810 Acute graft-versus-host disease; T86.19 Other complication of kidney transplant; N17.9 Acute kidney failure, unspecified; Z94.83 Pancreas transplant status; M86.672 Other chronic osteomyelitis, left ankle and foot; E87.1 Hypo-osmolality and hyponatremia; I50.32 Chronic diastolic (congestive) heart failure; E87.20 Acidosis, unspecified; I13.0 Hypertensive heart and chronic kidney disease with heart failure and stage 1 through stage 4 chronic kidney disease, or unspecified chronic kidney disease; J44.0 Chronic obstructive pulmonary disease with (acute) lower respiratory infection; J98.11 Atelectasis; E11.610 Type 2 diabetes mellitus with diabetic neuropathic arthropathy; D63.1 Anemia in chronic kidney disease; L97.529 Non-pressure chronic ulcer of other part of left foot with unspecified severity; I48.0 Paroxysmal atrial fibrillation; E11.40 Type 2 diabetes mellitus with diabetic neuropathy, unspecified; E11.22 Type 2 diabetes mellitus with diabetic chronic kidney disease; E11.69 Type 2 diabetes mellitus with other specified complication; E11.51 Type 2 diabetes mellitus with diabetic peripheral angiopathy without gangrene; E11.621 Type 2 diabetes mellitus with foot ulcer; Z20.822 Contact with and (suspected) exposure to COVID-19; E87.8 Other disorders of electrolyte and fluid balance, not elsewhere classified; N18.1 Chronic kidney disease, stage 1; E86.1 Hypovolemia; E78.5 Hyperlipidemia, unspecified; E61.1 Iron deficiency; E83.42 Hypomagnesemia; K59.00 Constipation, unspecified; G47.00 Insomnia, unspecified; F41.9 Anxiety disorder, unspecified; H91.90 Unspecified hearing loss, unspecified ear; Z79.01 Long term (current) use of anticoagulants; Z79.82 Long term (current) use of aspirin; Z79.52 Long term (current) use of systemic steroids; Z79.899 Other long term (current) drug therapy; Z85.828 Personal history of other malignant neoplasm of skin; Z86.14 Personal history of Methicillin resistant Staphylococcus aureus infection; Z87.891 Personal history of nicotine dependence; Z88.0 Allergy status to penicillin; Z91.040 Latex allergy status; X50.1XXA Overexertion from prolonged static or awkward postures, initial encounter; Y83.0 Surgical operation with transplant of whole organ as the cause of abnormal reaction of the patient, or of later complication, without mention of misadventure at the time of the procedure
CPT/HCPCS: 36415; 71045; 71046; 71260; 74177; 80048; 80053; 80197; 81003; 82607; 82728; 82747; 83036; 83540; 83550; 83735; 83930; 83935; 84100; 84145; 84300; 85025; 85027; 85610; 85730; 86140; 87040; 87636; 94760; 99285

== ENCOUNTER 2022-05-06 12:21 | Inpatient (IN) | payer MEDICARE, OTHER ==
[~2022-05-06 12:21] MED LIST changes: +DEXAMETHASONE SOD PHOSPHATE 4 MG/ML 1 ML VIAL IV ONE; +HYDROmorphone 0.5 MG/0.5 ML SYRINGE IVP PRN; +LIDOCAINE 1% (10MG/ML) FOR IV START INTRADERMA PRN; +MIDAZOLAM 2 MG/2 ML VIAL IV PRN; +ONDANSETRON 4 MG/2 ML VIAL IVP ONE; -SODIUM CHLORIDE 0.9% 500 ML 500 ML in EMPTY BAG 1 BAG IV PRN
[2022-05-06] MEDS ORDERED: SODIUM CHLORIDE 0.9% 1,000 ML IV ONE (13:15)
[2022-05-06 13:36] LABS: Glucose,Whole Blood 124 mg/dL (70-110)
[2022-05-06 13:52] LABS: Anisocytosis Slight; Basophils % (A) 0 %; Eosinophils # (A) 0.1 k/uL (0-0.7); Eosinophils % (A) 1 %; HCT 37.1 % (39.0-53.0); Hypochromasia Moderate; Lymphocytes # (A) 0.7 k/uL (1.0-4.8); Lymphocytes % (A) 7 %; MCH 28.4 pg (25.0-35.0); MCHC 32.4 g/dL (31.0-37.0); MCV 87.7 fL (80.0-100.0); Mean Platelet Volume 7.6; Monocytes # (A) 0.4 k/uL (0-1.0); Monocytes % (A) 4 %; Neutrophils # (A) 8.1 k/uL (1.3-7.7); Neutrophils % (A) 85 %; Platelet Count 583 k/uL (150-450); RBC 4.22 m/uL (4.30-5.90); RDW 18.3 % (11.5-15.5); WBC 9.5 k/uL (3.8-10.6)
[2022-05-06 14:01] LABS: INR 1.1 (<1.2); Prothrombin Time 11.9 sec (9.0-12.0)
[2022-05-06 14:02] LABS: Partial Thromboplastin Time 30.9 sec (22.0-30.0)
[2022-05-06 14:10] LABS: ALT 43 U/L (4-49); AST 72 U/L (17-59); African American GFR (CKD) >90 (>60 ml/min/1.73 sqM); Alkaline Phosphatase 94 U/L (38-126); Anion Gap 5 mmol/L; Blood Urea Nitrogen 15 mg/dL (9-20); Calcium 8.3 mg/dL (8.4-10.2); Carbon Dioxide 32 mmol/L (22-30); Chloride 100 mmol/L (98-107); Glucose 123 mg/dL (74-99); Non-African American GFR(CKD) >90 (>60 ml/min/1.73 sqM); Potassium 4.1 mmol/L (3.5-5.1); Sodium 137 mmol/L (137-145); Total Bilirubin 0.5 mg/dL (0.2-1.3); Total Protein 7.1 g/dL (6.3-8.2)
[2022-05-06] MEDS ORDERED: GLYCOPYRROLATE 0.2 MG/ML 2 ML VIAL ONE (15:13)
[2022-05-06] MEDS ORDERED: MIDAZOLAM 2 MG/2 ML VIAL ONE (15:13)
[2022-05-06] MEDS ORDERED: LIDOCAINE 2% INJ 20 MG/ML (2 ML VIAL) ONE (15:13)
[2022-05-06] MEDS ORDERED: PROPOFOL 10 MG/ML 20 ML VIAL IV ONE (15:13)
[2022-05-06] MEDS ORDERED: ROCURONIUM 10 MG/ML (5 ML VIAL) IV ONE (15:13)
[2022-05-06] MEDS ORDERED: SUCCINYLCHOLINE CHLORIDE 200 MG/10 ML VIAL IV ONE (15:13)
[2022-05-06] MEDS ORDERED: NEOSTIGMINE 1 MG/ML 10 ML VIAL ONE (15:13)
[2022-05-06] MEDS ORDERED: fentaNYL (PF) 50 MCG/ML 2 ML AMP ONE (15:13)
[2022-05-06] MEDS ORDERED: ONDANSETRON 4 MG/2 ML VIAL IVP PRN (16:48)
--- NOTE | 2022-05-06 16:48 | P.OP ---
Date of Procedure: 05/06/22 Description of Procedure: PREOPERATIVE DIAGNOSIS: Left lower extremity Charcot foot, chronic osteomyelitis, tibial fibular fracture, immunosuppression. POSTOPERATIVE DIAGNOSIS: Same. OPERATION: Left below knee amputation. SURGEON: Tiffanie Garcia DO BUSINESS ADMINISTRATION INSTRUCTOR: Stacy. ANESTHESIA: General endotracheal ESTIMATED BLOOD LOSS: 75 SPECIMENS REMOVED: Left lower extremity COMPLICATIONS: None CONDITION: Stable to recovery FINDINGS AND INDICATIONS: The patient is a 61-year-old male with chronic left lower extremity abnormalities along with chronic osteomyelitis and recent fracture with unlikely ability to heal due to his immunosuppression and chronic infection therefore at this time is recommended he undergo left below-knee amputation. Risks and benefits were discussed. He seemingly understood and was willing to proceed. PROCEDURE IN DETAIL: The patient was brought to the operating room, the operative leg was prepped and draped in the usual sterile manner. 10 cm below the tibial plateau was marked. The calf circumference was measured. Two thirds was utilized for the anterior incision, one third was utilized to create the flap. The incision was marked. The incision was deepened through the subcutaneous tissue and fascia to the level of the bone. The fascia was transected around the level of the incision. Anterior compartment muscles were divided and visualized to the tibial vessels which were suture ligated with 2-0 silk. Then the lateral compartment muscles were divided. Dissection was carried down to the level of the bone. The periosteal elevator was used and the tibia was freed from its periosteal tissues. The tibia was divided with an oscillating saw. The same was done of the fibula, approximately 1-1/2-2 cm more proximal to the tibia itself. The posterior flap was created with an amputation knife. Bleeding was controlled with suture ligation of the vessels. Electrocautery was also used for hemostasis. The specimen was removed. The wound was copiously irrigated. The tibia and fibula were smoothed with a rasp. 2-0 and 3-0 Vicryl was utilized to approximate the fascia. The skin was reapproximated with vanessa. The incsion was cleansed and a dressing was placed. The patient was extubated and transferred to PACU in stable condition having tolerated the procedure well
[2022-05-06 17:03] LABS: Glucose,Whole Blood 155 mg/dL (70-110)
[2022-05-06] MEDS: LACTATED RINGERS 1,000 ML IV SCH (19:08)
[2022-05-06 20:12] LABS: Glucose,Whole Blood 150 mg/dL (70-110)
[2022-05-06] MEDS: HYDROcodone/APAP 5-325MG 1 EACH TAB PO PRN (20:51)
[2022-05-06 20:53] LABS: Anisocytosis Slight; Basophils % (A) 0 %; Eosinophils % (A) 0 %; HCT 29.6 % (39.0-53.0); Hypochromasia Marked; Lymphocytes # (A) 0.4 k/uL (1.0-4.8); Lymphocytes % (A) 6 %; MCH 28.5 pg (25.0-35.0); MCHC 31.4 g/dL (31.0-37.0); MCV 90.7 fL (80.0-100.0); Mean Platelet Volume 7.6; Monocytes # (A) 0.3 k/uL (0-1.0); Monocytes % (A) 4 %; Neutrophils # (A) 6.6 k/uL (1.3-7.7); Neutrophils % (A) 90 %; Platelet Count 614 k/uL (150-450); RBC 3.27 m/uL (4.30-5.90); RDW 18.4 % (11.5-15.5); WBC 7.4 k/uL (3.8-10.6)
[2022-05-06 21:47] LABS: HGB 9.3 gm/dL (13.0-17.5)
[2022-05-06] MEDS: MORPHINE SULFATE 4 MG/ML SYRINGE IVP PRN (23:13)
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
[2022-05-07] MEDS: HYDROcodone/APAP 5-325MG 1 EACH TAB PO PRN ×4 (04:54→22:15)
[2022-05-07] MEDS: LACTATED RINGERS 1,000 ML IV SCH (06:04)
[2022-05-07 06:10] LABS: Glucose,Whole Blood 125 mg/dL (70-110)
[2022-05-07] MEDS: INSULIN ASPART (NovoLOG) 100 UNIT/ML VIAL SQ SCH ×4 (06:34→21:27)
[2022-05-07] MEDS: carvediloL 6.25 MG TAB PO SCH ×2 (06:36→16:49)
[2022-05-07] MEDS: predniSONE 10 MG TAB PO SCH (08:55)
[2022-05-07] MEDS: TACROLIMUS 1 MG CAP PO SCH ×2 (08:55→22:03)
[2022-05-07] MEDS ORDERED: SODIUM BICARBONATE TAB 650 MG TAB PO SCH (09:00)
--- NOTE | 2022-05-07 09:32 | P.PN ---
Subjective Progress Note Date: 05/07/22 #1: Status post left below the amputation, postop day #1 Objective - Vital Signs Vital signs: Vital Signs Temp 97.7 F 05/07/22 08:54 Pulse 64 05/07/22 08:54 Resp 18 05/07/22 08:54 BP 192/81 05/07/22 08:54 Pulse Ox 100 05/07/22 08:54 FiO2 Intake & Output 05/06/22 05/07/22 05/07/22 18:59 06:59 18:59 Intake Total 450 560 120 Output Total 100 0 375 Balance 350 560 -255 Weight 55 kg Intake: IV 450 160 Invasive Line 1 20 Invasive Line 2 140 Intake, IV Titration 160 120 Amount Lactated Ringers 1,000 ml 160 120 @ 20 mls/hr IV .Q24H [facility] Rx#:[id number] Oral 240 Output: Urine 0 375 Estimated Blood Loss 100 Other: Voiding Method Urinal Urinal # Voids 2 - Exam Patient resting comfortably. Dressings left intact. - Labs CBC & Chem 7: 05/06/22 20:24 05/06/22 13:19 Labs: Abnormal Lab Results - Last 24 Hours (Table) 05/06/22 05/06/22 05/06/22 Range/Units 13:19 13:19 13:19 RBC 4.22 L (4.30-5.90) m/uL Hgb 12.0 L (13.0-17.5) gm/dL Hct 37.1 L (39.0-53.0) % RDW 18.3 H (11.5-15.5) % Plt Count 583 H (150-450) k/uL Neutrophils # 8.1 H (1.3-7.7) k/uL Lymphocytes # 0.7 L (1.0-4.8) k/uL APTT 30.9 H (22.0-30.0) sec Carbon Dioxide 32 H (22-30) mmol/L Creatinine 0.59 L (0.66-1.25) mg/dL Glucose 123 H (74-99) mg/dL POC Glucose (mg/dL) (70-110) mg/dL Calcium 8.3 L (8.4-10.2) mg/dL AST 72 H (17-59) U/L Albumin 3.0 L (3.5-5.0) g/dL 05/06/22 05/06/22 05/06/22 Range/Units 13:35 17:02 20:11 RBC (4.30-5.90) m/uL Hgb (13.0-17.5) gm/dL Hct (39.0-53.0) % RDW (11.5-15.5) % Plt Count (150-450) k/uL Neutrophils # (1.3-7.7) k/uL Lymphocytes # (1.0-4.8) k/uL APTT (22.0-30.0) sec Carbon Dioxide (22-30) mmol/L Creatinine (0.66-1.25) mg/dL Glucose (74-99) mg/dL POC Glucose (mg/dL) 124 H 155 H 150 H (70-110) mg/dL Calcium (8.4-10.2) mg/dL AST (17-59) U/L Albumin (3.5-5.0) g/dL 05/06/22 05/07/22 Range/Units 20:24 06:09 RBC 3.27 L (4.30-5.90) m/uL Hgb 9.3 L D (13.0-17.5) gm/dL Hct 29.6 L (39.0-53.0) % RDW 18.4 H (11.5-15.5) % Plt Count 614 H (150-450) k/uL Neutrophils # (1.3-7.7) k/uL Lymphocytes # 0.4 L (1.0-4.8) k/uL APTT (22.0-30.0) sec Carbon Dioxide (22-30) mmol/L Creatinine (0.66-1.25) mg/dL Glucose (74-99) mg/dL POC Glucose (mg/dL) 125 H (70-110) mg/dL Calcium (8.4-10.2) mg/dL AST (17-59) U/L Albumin (3.5-5.0) g/dL Assessment and Plan Assessment: Postop day #1 left below the knee amputation. Plan: #1: Continue supportive care. #2: Will takedown dressings on Monday the . Time with Patient: Less than 30
[2022-05-07] MEDS ORDERED: hydrALAZINE HCL 20 MG/ML 1 ML VIAL IVP PRN (10:44)
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
[2022-05-07 11:30] LABS: Anisocytosis Slight; HCT 24.6 % (39.0-53.0); Hypochromasia Moderate; MCH 28.4 pg (25.0-35.0); MCHC 31.9 g/dL (31.0-37.0); MCV 88.9 fL (80.0-100.0); Mean Platelet Volume 8.1; Platelet Count 404 k/uL (150-450); RBC 2.76 m/uL (4.30-5.90); RDW 19.1 % (11.5-15.5)
[2022-05-07 11:45] LABS: Glucose,Whole Blood 111 mg/dL (70-110)
[2022-05-07 11:50] LABS: HGB 7.8 gm/dL (13.0-17.5)
[2022-05-07 11:51] LABS: African American GFR (CKD) >90 (>60 ml/min/1.73 sqM); Anion Gap 5 mmol/L; Blood Urea Nitrogen 19 mg/dL (9-20); Calcium 7.6 mg/dL (8.4-10.2); Carbon Dioxide 27 mmol/L (22-30); Chloride 104 mmol/L (98-107); Glucose 102 mg/dL (74-99); Non-African American GFR(CKD) >90 (>60 ml/min/1.73 sqM); Potassium 4.7 mmol/L (3.5-5.1); Sodium 136 mmol/L (137-145)
--- NOTE | 2022-05-07 13:25 | P.PN ---
Subjective Progress Note Date: 05/07/22 Patient seen and examined at bedside. Patient has no complaints at this time. Patient denies chest pain, shortness breath, nausea, vomiting, fever or chills. Patient states that his leg hurts. Patient is postop day 1 LBKA. Objective - Vital Signs Vital signs: Vital Signs Temp 97.7 F 05/07/22 08:54 Pulse 64 05/07/22 08:54 Resp 18 05/07/22 08:54 BP 194/79 05/07/22 12:47 Pulse Ox 100 05/07/22 08:54 FiO2 Intake & Output 05/06/22 05/07/22 05/07/22 18:59 06:59 18:59 Intake Total 450 560 120 Output Total 100 0 375 Balance 350 560 -255 Weight 55 kg Intake: IV 450 160 Invasive Line 1 20 Invasive Line 2 140 Intake, IV Titration 160 120 Amount Lactated Ringers 1,000 ml 160 120 @ 20 mls/hr IV .Q24H [facility] Rx#:[id number] Oral 240 Output: Urine 0 375 Estimated Blood Loss 100 Other: Voiding Method Urinal Urinal # Voids 2 - Exam General: [non toxic], [no distress], [appears at stated age] Derm: [warm], [dry] Head: [atraumatic], [normocephalic], [symmetric] Eyes: [EOMI], [no lid lag], [anicteric sclera] Mouth: [no lip lesion], [mucus membranes moist] Cardiovascular: [S1S2 reg], [no murmur], [positive posterior tibial pulse bilateral], Lungs: [CTA bilateral], [no rhonchi, no rales] , [no accessory muscle use] Abdominal: [soft], [ nontender to palpation], [no guarding], [no appreciable organomegaly] Ext: [no gross muscle atrophy], [no edema], [no contractures] Neuro: [ CN II-XI grossly intact], [no focal neuro deficits] Psych: [Alert], [oriented], [appropriate affect] - Labs CBC & Chem 7: 05/07/22 11:03 05/07/22 11:03 Labs: Abnormal Lab Results - Last 24 Hours (Table) 05/06/22 05/06/22 05/06/22 Range/Units 13:19 13:19 13:19 RBC 4.22 L (4.30-5.90) m/uL Hgb 12.0 L (13.0-17.5) gm/dL Hct 37.1 L (39.0-53.0) % RDW 18.3 H (11.5-15.5) % Plt Count 583 H (150-450) k/uL Neutrophils # 8.1 H (1.3-7.7) k/uL Lymphocytes # 0.7 L (1.0-4.8) k/uL APTT 30.9 H (22.0-30.0) sec Sodium (137-145) mmol/L Carbon Dioxide 32 H (22-30) mmol/L Creatinine 0.59 L (0.66-1.25) mg/dL Glucose 123 H (74-99) mg/dL POC Glucose (mg/dL) (70-110) mg/dL Calcium 8.3 L (8.4-10.2) mg/dL AST 72 H (17-59) U/L Albumin 3.0 L (3.5-5.0) g/dL 05/06/22 05/06/22 05/06/22 Range/Units 13:35 17:02 20:11 RBC (4.30-5.90) m/uL Hgb (13.0-17.5) gm/dL Hct (39.0-53.0) % RDW (11.5-15.5) % Plt Count (150-450) k/uL Neutrophils # (1.3-7.7) k/uL Lymphocytes # (1.0-4.8) k/uL APTT (22.0-30.0) sec Sodium (137-145) mmol/L Carbon Dioxide (22-30) mmol/L Creatinine (0.66-1.25) mg/dL Glucose (74-99) mg/dL POC Glucose (mg/dL) 124 H 155 H 150 H (70-110) mg/dL Calcium (8.4-10.2) mg/dL AST (17-59) U/L Albumin (3.5-5.0) g/dL 05/06/22 05/07/22 05/07/22 Range/Units 20:24 06:09 11:03 RBC 3.27 L 2.76 L (4.30-5.90) m/uL Hgb 9.3 L D 7.8 L D (13.0-17.5) gm/dL Hct 29.6 L 24.6 L (39.0-53.0) % RDW 18.4 H 19.1 H (11.5-15.5) % Plt Count 614 H (150-450) k/uL Neutrophils # (1.3-7.7) k/uL Lymphocytes # 0.4 L (1.0-4.8) k/uL APTT (22.0-30.0) sec Sodium (137-145) mmol/L Carbon Dioxide (22-30) mmol/L Creatinine (0.66-1.25) mg/dL Glucose (74-99) mg/dL POC Glucose (mg/dL) 125 H (70-110) mg/dL Calcium (8.4-10.2) mg/dL AST (17-59) U/L Albumin (3.5-5.0) g/dL 05/07/22 05/07/22 Range/Units 11:03 11:36 RBC (4.30-5.90) m/uL Hgb (13.0-17.5) gm/dL Hct (39.0-53.0) % RDW (11.5-15.5) % Plt Count (150-450) k/uL Neutrophils # (1.3-7.7) k/uL Lymphocytes # (1.0-4.8) k/uL APTT (22.0-30.0) sec Sodium 136 L (137-145) mmol/L Carbon Dioxide (22-30) mmol/L Creatinine 0.57 L (0.66-1.25) mg/dL Glucose 102 H (74-99) mg/dL POC Glucose (mg/dL) 111 H (70-110) mg/dL Calcium 7.6 L (8.4-10.2) mg/dL AST (17-59) U/L Albumin (3.5-5.0) g/dL Assessment and Plan Assessment: charcot arthropathy , chronic wounds on left foot, with non healing fracture, s/p LBKA POD one management per primary team acute post op anemia , asymptomatic continue to monitor closely A.m. hemoglobin was 7.8 patient is currently asymptomatic Will Repeat CBC stat ESRD s/p kidney and pancreas transplant verify home antirejection meds continue prednisone 10 mg daily PO and tacrolimus 1 mg BID verify if he is still taking mycophenolate DM with complications insulin sliding scale afib , eliquis on hold await surgery clearance . resume coreg cardiac monitoring hyperlipidemia , resume lovastatin hypertension resume coreg nifidipine on hold due to borderline BP , if stabilize by AM, then continue verify if patient takes hydralazin full code DVT PPX per primary team follow up hemoglobin closely verify and resume anti rejection meds verify and resume antihypertensive meds
[2022-05-07 13:38] LABS: Anisocytosis Slight; Basophils % (A) 0 %; Eosinophils % (A) 0 %; HCT 25.9 % (39.0-53.0); HGB 7.9 gm/dL (13.0-17.5); Hypochromasia Marked; Lymphocytes % (A) 9 %; MCH 27.6 pg (25.0-35.0); MCHC 30.6 g/dL (31.0-37.0); MCV 90.3 fL (80.0-100.0); Mean Platelet Volume 7.5; Monocytes # (A) 0.6 k/uL (0-1.0); Monocytes % (A) 6 %; Neutrophils # (A) 8.8 k/uL (1.3-7.7); Neutrophils % (A) 82 %; Platelet Count 655 k/uL (150-450); RBC 2.86 m/uL (4.30-5.90); RDW 18.9 % (11.5-15.5); WBC 10.8 k/uL (3.8-10.6)
[2022-05-07] MEDS: MORPHINE SULFATE 4 MG/ML SYRINGE IVP PRN (13:54)
[2022-05-07] MEDS: SODIUM CHLORIDE 0.9% 1,000 ML IV SCH ×2 (13:55→23:20)
[2022-05-07] MEDS ORDERED: ONDANSETRON ODT 4 MG TAB PO PRN (15:29)
[2022-05-07] MEDS ORDERED: PROMETHAZINE 25 MG TAB PO PRN (15:37)
[2022-05-07] MEDS: hydrALAZINE HCL 25 MG TAB PO SCH ×4 (16:30→22:13)
[2022-05-07] MEDS: MAGNESIUM OXIDE 400 MG TAB PO SCH (16:49)
[2022-05-07] MEDS: CALCIUM CARB-VIT D 500 MG-5 MCG TAB PO SCH (16:49)
[2022-05-07] MEDS: FUROSEMIDE 40 MG TAB PO SCH (16:49)
[2022-05-07] MEDS: FOLIC ACID 1 MG TAB PO SCH (16:49)
[2022-05-07] MEDS: MULTIVITAMINS, THERA 1 EACH TAB PO SCH (16:49)
[2022-05-07 16:58] LABS: Glucose,Whole Blood 118 mg/dL (70-110)
[2022-05-07 17:38] VITALS: BMI 19.0
[2022-05-07] MEDS: CHOLECALCIFEROL 25 MCG (1000 IU) TABLET PO SCH (18:39)
[2022-05-07 19:05] LABS: Anisocytosis Slight; Basophils % (A) 0 %; Eosinophils % (A) 0 %; HCT 25.8 % (39.0-53.0); HGB 7.8 gm/dL (13.0-17.5); Hypochromasia Marked; Lymphocytes # (A) 1.2 k/uL (1.0-4.8); Lymphocytes % (A) 11 %; MCH 27.6 pg (25.0-35.0); MCHC 30.4 g/dL (31.0-37.0); MCV 90.7 fL (80.0-100.0); Mean Platelet Volume 7.6; Monocytes # (A) 0.7 k/uL (0-1.0); Monocytes % (A) 7 %; Neutrophils # (A) 8.6 k/uL (1.3-7.7); Neutrophils % (A) 79 %; Platelet Count 616 k/uL (150-450); RBC 2.84 m/uL (4.30-5.90); RDW 18.9 % (11.5-15.5)
[2022-05-07 20:19] LABS: Glucose,Whole Blood 110 mg/dL (70-110)
[2022-05-07] MEDS: GABAPENTIN 300 MG CAP PO SCH (22:02)
[2022-05-07] MEDS: ATORVASTATIN 10 MG TAB PO SCH (22:03)
[2022-05-07] MEDS: TIMOLOL 0.5% OPHTH DROPS 5 ML BTL BOTH EYES SCH (22:03)
[2022-05-07] MEDS: BRIMONIDINE TARTRATE 0.2% DROPS 5 ML BTL BOTH EYES SCH (22:04)
[2022-05-07] MEDS: LACTOBACILLUS ACIDOPH & BULGAR 1 EACH PACKET PO SCH (22:04)
[2022-05-07] MEDS: LATANOPROST 0.005% OPHTH DROPS 2.5 ML BTL RIGHT EYE SCH (22:04)
[2022-05-07] MEDS: DORZOLAMIDE HCL 2% DROPS 10 ML BTL LEFT EYE SCH (22:04)
[2022-05-08 01:04] LABS: Anisocytosis Slight; HCT 27.6 % (39.0-53.0); HGB 8.4 gm/dL (13.0-17.5); Hypochromasia Marked; MCH 28.2 pg (25.0-35.0); MCHC 30.4 g/dL (31.0-37.0); MCV 92.7 fL (80.0-100.0); Macrocytosis Slight; Mean Platelet Volume 7.7; Platelet Count 632 k/uL (150-450); RBC 2.97 m/uL (4.30-5.90); RDW 19.2 % (11.5-15.5); WBC 10.5 k/uL (3.8-10.6)
[2022-05-08] MEDS: MORPHINE SULFATE 4 MG/ML SYRINGE IVP PRN ×4 (01:14→23:52)
[2022-05-08 02:34] LABS: Lymphocytes # (M) 1.47 k/uL (1.0-4.8); Monocytes # (M) 0.74 k/uL (0-1.0); Neutrophils % (M) 79 %; Nucleated Red Blood Cells 0 /100 WBC (0-0); Total Cells Counted 100
[2022-05-08] MEDS: HYDROcodone/APAP 5-325MG 1 EACH TAB PO PRN ×4 (06:07→20:50)
[2022-05-08] MEDS: CALCIUM CARB-VIT D 500 MG-5 MCG TAB PO SCH ×2 (06:08→16:54)
[2022-05-08] MEDS: carvediloL 6.25 MG TAB PO SCH ×2 (06:08→16:54)
[2022-05-08 06:20] LABS: Glucose,Whole Blood 92 mg/dL (70-110)
[2022-05-08] MEDS: INSULIN ASPART (NovoLOG) 100 UNIT/ML VIAL SQ SCH ×4 (06:36→20:40)
[2022-05-08] MEDS: LACTATED RINGERS 1,000 ML IV SCH (07:00)
[2022-05-08] MEDS: hydrALAZINE HCL 25 MG TAB PO SCH ×6 (09:34→20:50)
--- NOTE | 2022-05-08 09:41 | P.PN ---
Subjective Patient seen and examined at bedside. Patient denies chest pain shortness of breath. Patient states that he just wants to sleep because he is tired. Patient denies fever chills nausea vomiting. Hemoglobin this morning stable. Objective - Vital Signs Vital signs: Vital Signs Temp 98.1 F 05/08/22 04:00 Pulse 69 05/08/22 04:00 Resp 12 05/08/22 04:00 BP 128/69 05/08/22 04:00 Pulse Ox 98 05/08/22 04:00 FiO2 Intake & Output 05/07/22 05/08/22 05/08/22 18:59 06:59 18:59 Intake Total 120 Output Total 975 2625 Balance -855 -2625 Weight 55 kg Intake: Intake, IV Titration 120 Amount Lactated Ringers 1,000 ml 120 @ 20 mls/hr IV .Q24H [facility] Rx#:[id number] Output: Urine 975 2625 Other: Voiding Method Urinal Indwelling Catheter # Voids 2 - Exam General: [non toxic], [no distress], [appears at stated age] Derm: [warm], [dry] Head: [atraumatic], [normocephalic], [symmetric] Eyes: [EOMI], [no lid lag], [anicteric sclera] Mouth: [no lip lesion], [mucus membranes moist] Cardiovascular: [S1S2 reg], [no murmur], [positive posterior tibial pulse bilateral], Lungs: [CTA bilateral], [no rhonchi, no rales] , [no accessory muscle use] Abdominal: [soft], [ nontender to palpation], [no guarding], [no appreciable organomegaly] Ext: [no gross muscle atrophy], [no edema], [no contractures] Neuro: [ CN II-XI grossly intact], [no focal neuro deficits] Psych: [Alert], [oriented], [appropriate affect] - Labs CBC & Chem 7: 05/08/22 00:32 05/07/22 11:03 Labs: Abnormal Lab Results - Last 24 Hours (Table) 05/07/22 05/07/22 05/07/22 Range/Units 11:03 11:03 11:36 WBC (3.8-10.6) k/uL RBC 2.76 L (4.30-5.90) m/uL Hgb 7.8 L D (13.0-17.5) gm/dL Hct 24.6 L (39.0-53.0) % MCHC (31.0-37.0) g/dL RDW 19.1 H (11.5-15.5) % Plt Count (150-450) k/uL Neutrophils # (1.3-7.7) k/uL Neutrophils # (Manual) (1.3-7.7) k/uL Sodium 136 L (137-145) mmol/L Creatinine 0.57 L (0.66-1.25) mg/dL Glucose 102 H (74-99) mg/dL POC Glucose (mg/dL) 111 H (70-110) mg/dL Calcium 7.6 L (8.4-10.2) mg/dL 05/07/22 05/07/22 05/07/22 Range/Units 13:32 16:52 18:42 WBC 10.8 H 11.0 H (3.8-10.6) k/uL RBC 2.86 L 2.84 L (4.30-5.90) m/uL Hgb 7.9 L 7.8 L (13.0-17.5) gm/dL Hct 25.9 L 25.8 L (39.0-53.0) % MCHC 30.6 L 30.4 L (31.0-37.0) g/dL RDW 18.9 H 18.9 H (11.5-15.5) % Plt Count 655 H 616 H (150-450) k/uL Neutrophils # 8.8 H 8.6 H (1.3-7.7) k/uL Neutrophils # (Manual) (1.3-7.7) k/uL Sodium (137-145) mmol/L Creatinine (0.66-1.25) mg/dL Glucose (74-99) mg/dL POC Glucose (mg/dL) 118 H (70-110) mg/dL Calcium (8.4-10.2) mg/dL 05/08/22 Range/Units 00:32 WBC (3.8-10.6) k/uL RBC 2.97 L (4.30-5.90) m/uL Hgb 8.4 L (13.0-17.5) gm/dL Hct 27.6 L (39.0-53.0) % MCHC 30.4 L (31.0-37.0) g/dL RDW 19.2 H (11.5-15.5) % Plt Count 632 H (150-450) k/uL Neutrophils # (1.3-7.7) k/uL Neutrophils # (Manual) 8.30 H (1.3-7.7) k/uL Sodium (137-145) mmol/L Creatinine (0.66-1.25) mg/dL Glucose (74-99) mg/dL POC Glucose (mg/dL) (70-110) mg/dL Calcium (8.4-10.2) mg/dL Assessment and Plan Assessment: charcot arthropathy , 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 hemoglobin was 8.4 improved from 7.8 No signs of bleeding at this time May resume anticoagulant if approved by surgery ESRD s/p kidney and pancreas transplant verify home antirejection meds continue prednisone 10 mg daily PO and tacrolimus 1 mg BID DM with complications insulin sliding scale afib May resume Eliquis if approved by surgery . resume coreg cardiac monitoring hyperlipidemia resume lovastatin hypertension resume coreg nifidipine on hold due to borderline BP , if stabilize by AM, then continue verify if patient takes hydralazin full code DVT PPX per primary team follow up hemoglobin closely verify and resume anti rejection meds verify and resume antihypertensive meds
[2022-05-08] MEDS: MAGNESIUM OXIDE 400 MG TAB PO SCH (09:56)
[2022-05-08] MEDS: FOLIC ACID 1 MG TAB PO SCH (09:56)
[2022-05-08] MEDS: MULTIVITAMINS, THERA 1 EACH TAB PO SCH (09:56)
[2022-05-08] MEDS: FUROSEMIDE 40 MG TAB PO SCH (09:56)
[2022-05-08] MEDS: TACROLIMUS 1 MG CAP PO SCH ×2 (09:56→21:44)
[2022-05-08] MEDS: predniSONE 10 MG TAB PO SCH (09:56)
[2022-05-08] MEDS: LACTOBACILLUS ACIDOPH & BULGAR 1 EACH PACKET PO SCH ×2 (09:56→20:50)
[2022-05-08] MEDS: CHOLECALCIFEROL 25 MCG (1000 IU) TABLET PO SCH (09:56)
--- NOTE | 2022-05-08 11:00 | P.PN ---
Subjective Patient is seen in follow-up for renal transplant management. Oral intake fair. Garcia catheter inserted 05/07/2022 due to urinary retention. Denies chest pain or shortness of breath. Receiving IV fluids. Vital signs stable. General: NAD. HEENT: Head exam is unremarkable. LUNGS: Breath sounds decreased. HEART: Rate and Rhythm are regular. ABDOMEN: Soft, no distention. EXTREMITITES: Left BKA. No edema. Objective - Vital Signs Vital signs: Vital Signs Temp 97.8 F 05/08/22 09:41 Pulse 70 05/08/22 09:41 Resp 16 05/08/22 09:41 BP 119/64 05/08/22 09:41 Pulse Ox 96 05/08/22 09:41 FiO2 Intake & Output 05/07/22 05/08/22 05/08/22 18:59 06:59 18:59 Intake Total 120 Output Total 975 2625 Balance -855 -2624 Weight 55 kg Intake: Intake, IV Titration 120 Amount Lactated Ringers 1,000 ml 120 @ 20 mls/hr IV .Q24H [facility] Rx#:[id number] Output: Urine 975 2625 Other: Voiding Method Urinal Indwelling Catheter # Voids 2 - Labs CBC & Chem 7: 05/08/22 00:32 05/07/22 11:03 Labs: Abnormal Lab Results - Last 24 Hours (Table) 05/07/22 05/07/22 05/07/22 Range/Units 11:03 11:03 11:36 WBC (3.8-10.6) k/uL RBC 2.76 L (4.30-5.90) m/uL Hgb 7.8 L D (13.0-17.5) gm/dL Hct 24.6 L (39.0-53.0) % MCHC (31.0-37.0) g/dL RDW 19.1 H (11.5-15.5) % Plt Count (150-450) k/uL Neutrophils # (1.3-7.7) k/uL Neutrophils # (Manual) (1.3-7.7) k/uL Sodium 136 L (137-145) mmol/L Creatinine 0.57 L (0.66-1.25) mg/dL Glucose 102 H (74-99) mg/dL POC Glucose (mg/dL) 111 H (70-110) mg/dL Calcium 7.6 L (8.4-10.2) mg/dL 05/07/22 05/07/22 05/07/22 Range/Units 13:32 16:52 18:42 WBC 10.8 H 11.0 H (3.8-10.6) k/uL RBC 2.86 L 2.84 L (4.30-5.90) m/uL Hgb 7.9 L 7.8 L (13.0-17.5) gm/dL Hct 25.9 L 25.8 L (39.0-53.0) % MCHC 30.6 L 30.4 L (31.0-37.0) g/dL RDW 18.9 H 18.9 H (11.5-15.5) % Plt Count 655 H 616 H (150-450) k/uL Neutrophils # 8.8 H 8.6 H (1.3-7.7) k/uL Neutrophils # (Manual) (1.3-7.7) k/uL Sodium (137-145) mmol/L Creatinine (0.66-1.25) mg/dL Glucose (74-99) mg/dL POC Glucose (mg/dL) 118 H (70-110) mg/dL Calcium (8.4-10.2) mg/dL 05/08/22 Range/Units 00:32 WBC (3.8-10.6) k/uL RBC 2.97 L (4.30-5.90) m/uL Hgb 8.4 L (13.0-17.5) gm/dL Hct 27.6 L (39.0-53.0) % MCHC 30.4 L (31.0-37.0) g/dL RDW 19.2 H (11.5-15.5) % Plt Count 632 H (150-450) k/uL Neutrophils # (1.3-7.7) k/uL Neutrophils # (Manual) 8.30 H (1.3-7.7) k/uL Sodium (137-145) mmol/L Creatinine (0.66-1.25) mg/dL Glucose (74-99) mg/dL POC Glucose (mg/dL) (70-110) mg/dL Calcium (8.4-10.2) mg/dL Assessment and Plan Plan: Assessment: 1. Status post simultaneous kidney and pancreas transplant in 1997 and she was tearful is constant. GFR at baseline. 2. Chronic left foot osteomyelitis status post left BKA 05/06/2022. 3. Hypertension with chronic kidney disease. 4. Urinary retention. Garcia catheter inserted 05/07/2022. 5. Anemia. Rule out iron deficiency. Plan: Maintain IV fluids for now. Hold Lasix. Add Flomax. Encourage oral intake. Maintain prednisone and Prograf. Continue to hold CellCept for now. Follow-up Prograf level.
[2022-05-08 11:19] LABS: ALT 25 U/L (4-49); AST 36 U/L (17-59); African American GFR (CKD) >90 (>60 ml/min/1.73 sqM); Albumin 2.6 g/dL (3.5-5.0); Alkaline Phosphatase 65 U/L (38-126); Anion Gap 3 mmol/L; Blood Urea Nitrogen 13 mg/dL (9-20); Carbon Dioxide 29 mmol/L (22-30); Chloride 106 mmol/L (98-107); Glucose 98 mg/dL (74-99); Non-African American GFR(CKD) >90 (>60 ml/min/1.73 sqM); Potassium 3.8 mmol/L (3.5-5.1); Sodium 138 mmol/L (137-145); Total Bilirubin 0.4 mg/dL (0.2-1.3); Total Protein 6.1 g/dL (6.3-8.2)
[2022-05-08 11:30] LABS: Anisocytosis Slight; HCT 25.2 % (39.0-53.0); HGB 7.9 gm/dL (13.0-17.5); Hypochromasia Marked; MCH 28.3 pg (25.0-35.0); MCHC 31.5 g/dL (31.0-37.0); Mean Platelet Volume 7.8; Platelet Count 631 k/uL (150-450); RDW 19.3 % (11.5-15.5)
[2022-05-08 11:59] LABS: Glucose,Whole Blood 145 mg/dL (70-110)
[2022-05-08 12:08] LABS: Metamyelocytes # (M) 0.09 k/uL (0); Metamyelocytes % 1 %; Monocytes # (M) 0.56 k/uL (0-1.0); Neutrophils % (M) 75 %; Nucleated Red Blood Cells 1 /100 WBC (0-0); Total Cells Counted 100
[2022-05-08 12:09] LABS: Lymphocytes # (M) 1.67 k/uL (1.0-4.8); Neutrophils # (M) 6.98 k/uL (1.3-7.7); WBC 9.3 k/uL (3.8-10.6)
[2022-05-08] MEDS: LATANOPROST 0.005% OPHTH DROPS 2.5 ML BTL RIGHT EYE SCH (12:12)
[2022-05-08] MEDS: DORZOLAMIDE HCL 2% DROPS 10 ML BTL LEFT EYE SCH ×2 (12:12→20:44)
[2022-05-08] MEDS: BRIMONIDINE TARTRATE 0.2% DROPS 5 ML BTL BOTH EYES SCH ×2 (12:12→20:44)
[2022-05-08] MEDS: TIMOLOL 0.5% OPHTH DROPS 5 ML BTL BOTH EYES SCH ×2 (12:13→20:44)
--- NOTE | 2022-05-08 13:09 | P.PN ---
Subjective Progress Note Date: 05/08/22 Postop day #2 status post left below the knee amputation. Objective - Vital Signs Vital signs: Vital Signs Temp 97.8 F 05/08/22 09:41 Pulse 70 05/08/22 09:41 Resp 24 05/08/22 12:20 BP 119/64 05/08/22 09:41 Pulse Ox 96 05/08/22 09:41 FiO2 Intake & Output 05/07/22 05/08/22 05/08/22 18:59 06:59 18:59 Intake Total 120 Output Total 975 2625 Balance -855 -2620 Weight 55 kg Intake: Intake, IV Titration 120 Amount Lactated Ringers 1,000 ml 120 @ 20 mls/hr IV .Q24H [facility] Rx#:[id number] Output: Urine 975 2622 Other: Voiding Method Urinal Indwelling Catheter Indwelling Catheter # Voids 2 - Exam Patient is resting comfortably. - Labs CBC & Chem 7: 05/08/22 10:37 05/08/22 10:37 Labs: Abnormal Lab Results - Last 24 Hours (Table) 05/07/22 05/07/22 05/07/22 Range/Units 13:32 16:52 18:42 WBC 10.8 H 11.0 H (3.8-10.6) k/uL RBC 2.86 L 2.84 L (4.30-5.90) m/uL Hgb 7.9 L 7.8 L (13.0-17.5) gm/dL Hct 25.9 L 25.8 L (39.0-53.0) % MCHC 30.6 L 30.4 L (31.0-37.0) g/dL RDW 18.9 H 18.9 H (11.5-15.5) % Plt Count 655 H 616 H (150-450) k/uL Neutrophils # 8.8 H 8.6 H (1.3-7.7) k/uL Neutrophils # (Manual) (1.3-7.7) k/uL Metamyelocytes # (Man) (0) k/uL Nucleated RBCs (0-0) /100 WBC Creatinine (0.66-1.25) mg/dL POC Glucose (mg/dL) 118 H (70-110) mg/dL Calcium (8.4-10.2) mg/dL Total Protein (6.3-8.2) g/dL Albumin (3.5-5.0) g/dL 05/08/22 05/08/22 05/08/22 Range/Units 00:32 10:37 10:37 WBC (3.8-10.6) k/uL RBC 2.97 L 2.80 L (4.30-5.90) m/uL Hgb 8.4 L 7.9 L (13.0-17.5) gm/dL Hct 27.6 L 25.2 L (39.0-53.0) % MCHC 30.4 L (31.0-37.0) g/dL RDW 19.2 H 19.3 H (11.5-15.5) % Plt Count 632 H 631 H (150-450) k/uL Neutrophils # (1.3-7.7) k/uL Neutrophils # (Manual) 8.30 H (1.3-7.7) k/uL Metamyelocytes # (Man) 0.09 H (0) k/uL Nucleated RBCs 1 H (0-0) /100 WBC Creatinine 0.56 L (0.66-1.25) mg/dL POC Glucose (mg/dL) (70-110) mg/dL Calcium 8.0 L (8.4-10.2) mg/dL Total Protein 6.1 L (6.3-8.2) g/dL Albumin 2.6 L (3.5-5.0) g/dL 05/08/22 Range/Units 11:54 WBC (3.8-10.6) k/uL RBC (4.30-5.90) m/uL Hgb (13.0-17.5) gm/dL Hct (39.0-53.0) % MCHC (31.0-37.0) g/dL RDW (11.5-15.5) % Plt Count (150-450) k/uL Neutrophils # (1.3-7.7) k/uL Neutrophils # (Manual) (1.3-7.7) k/uL Metamyelocytes # (Man) (0) k/uL Nucleated RBCs (0-0) /100 WBC Creatinine (0.66-1.25) mg/dL POC Glucose (mg/dL) 145 H (70-110) mg/dL Calcium (8.4-10.2) mg/dL Total Protein (6.3-8.2) g/dL Albumin (3.5-5.0) g/dL Assessment and Plan Assessment: Postop day #2 status post left [id number] amputation. Plan: Plan: Continue supportive care. Will takedown dressings tomorrow. Time with Patient: Less than 30
[2022-05-08] MEDS: SODIUM CHLORIDE 0.9% 1,000 ML IV SCH ×2 (15:43→23:51)
[2022-05-08] MEDS: TAMSULOSIN 0.4 MG CAP.ER.24H PO SCH (16:54)
[2022-05-08 17:02] LABS: Glucose,Whole Blood 147 mg/dL (70-110)
[2022-05-08 17:05] LABS: % Iron Saturation 29.11 (15.00-50.00); Iron 43 ug/dL (65-175); Total Iron Binding Capacity 148 ug/dL (228-460)
[2022-05-08 20:19] LABS: Glucose,Whole Blood 135 mg/dL (70-110)
[2022-05-08] MEDS: ATORVASTATIN 10 MG TAB PO SCH (20:50)
[2022-05-08] MEDS: GABAPENTIN 300 MG CAP PO SCH (20:50)
[2022-05-08] MEDS: MELATONIN 3 MG TABLET PO SCH (22:12)
[2022-05-09] MEDS: LACTATED RINGERS 1,000 ML IV SCH (05:50)
[2022-05-09 06:15] LABS: Glucose,Whole Blood 92 mg/dL (70-110)
[2022-05-09] MEDS: HYDROcodone/APAP 5-325MG 1 EACH TAB PO PRN ×2 (06:57→21:52)
[2022-05-09] MEDS: CALCIUM CARB-VIT D 500 MG-5 MCG TAB PO SCH ×2 (06:57→17:18)
[2022-05-09] MEDS: carvediloL 6.25 MG TAB PO SCH ×2 (06:57→17:18)
[2022-05-09] MEDS: INSULIN ASPART (NovoLOG) 100 UNIT/ML VIAL SQ SCH ×4 (06:59→21:53)
[2022-05-09 07:59] LABS: ALT 23 U/L (4-49); AST 33 U/L (17-59); African American GFR (CKD) >90 (>60 ml/min/1.73 sqM); Albumin 2.6 g/dL (3.5-5.0); Alkaline Phosphatase 66 U/L (38-126); Anion Gap 2 mmol/L; Blood Urea Nitrogen 10 mg/dL (9-20); Carbon Dioxide 28 mmol/L (22-30); Chloride 109 mmol/L (98-107); Glucose 86 mg/dL (74-99); Magnesium 1.5 mg/dL (1.6-2.3); Non-African American GFR(CKD) >90 (>60 ml/min/1.73 sqM); Potassium 4.1 mmol/L (3.5-5.1); Sodium 139 mmol/L (137-145); Total Bilirubin 0.3 mg/dL (0.2-1.3)
[2022-05-09] MEDS ORDERED: Magnesium Replacement Protocol 1 EACH MISC MISCELLANE PRN (08:04)
[2022-05-09 08:15] LABS: Anisocytosis Slight; HCT 24.7 % (39.0-53.0); HGB 7.6 gm/dL (13.0-17.5); Hypochromasia Marked; MCH 27.8 pg (25.0-35.0); MCHC 30.6 g/dL (31.0-37.0); MCV 90.8 fL (80.0-100.0); Platelet Count 588 k/uL (150-450); RBC 2.72 m/uL (4.30-5.90); RDW 19.3 % (11.5-15.5); WBC 7.8 k/uL (3.8-10.6)
[2022-05-09] MEDS: MAGNESIUM SULFATE-D5W PMX 1 GM in DEXTROSE/WATER 1 100ML.BAG IVPB SCH ×2 (08:28→10:04)
[2022-05-09] MEDS: CHOLECALCIFEROL 25 MCG (1000 IU) TABLET PO SCH (08:29)
[2022-05-09] MEDS: TACROLIMUS 1 MG CAP PO SCH (08:29)
[2022-05-09] MEDS: LACTOBACILLUS ACIDOPH & BULGAR 1 EACH PACKET PO SCH ×2 (08:29→21:51)
[2022-05-09] MEDS: FOLIC ACID 1 MG TAB PO SCH (08:29)
[2022-05-09] MEDS: hydrALAZINE HCL 25 MG TAB PO SCH ×3 (08:29→21:52)
[2022-05-09] MEDS: MAGNESIUM OXIDE 400 MG TAB PO SCH (08:29)
[2022-05-09] MEDS: TIMOLOL 0.5% OPHTH DROPS 5 ML BTL BOTH EYES SCH ×2 (08:30→21:53)
[2022-05-09] MEDS: predniSONE 10 MG TAB PO SCH (08:30)
[2022-05-09] MEDS: BRIMONIDINE TARTRATE 0.2% DROPS 5 ML BTL BOTH EYES SCH ×2 (08:30→21:53)
[2022-05-09] MEDS: DORZOLAMIDE HCL 2% DROPS 10 ML BTL LEFT EYE SCH ×2 (08:30→21:54)
[2022-05-09] MEDS: MORPHINE SULFATE 4 MG/ML SYRINGE IVP PRN (08:34)
--- NOTE | 2022-05-09 10:45 | P.PN ---
Subjective Patient is seen in follow-up for renal transplant management. Oral intake fair. Garcia catheter inserted 05/07/2022 due to urinary retention. Denies chest pain or shortness of breath. Receiving IV fluids. No active complaints. Nonoliguric. Vital signs stable. General: NAD. HEENT: Head exam is unremarkable. LUNGS: Breath sounds decreased. HEART: Rate and Rhythm are regular. ABDOMEN: Soft, no distention. EXTREMITITES: Left BKA. No edema. Objective - Vital Signs Vital signs: Vital Signs Temp 97.2 F L 05/09/22 08:22 Pulse 65 05/09/22 08:22 Resp 16 05/09/22 08:22 BP 136/57 05/09/22 08:22 Pulse Ox 93 L 05/09/22 04:00 FiO2 Intake & Output 05/08/22 05/09/22 05/09/22 18:59 06:59 18:59 Intake Total 118 Output Total 750 300 400 Balance -750 -300 -282 Intake: Oral 118 Output: Urine 750 300 400 Other: Voiding Method Indwelling Catheter Indwelling Catheter Indwelling Catheter - Labs CBC & Chem 7: 05/09/22 07:11 05/09/22 07:11 Labs: Abnormal Lab Results - Last 24 Hours (Table) 05/06/22 05/08/22 05/08/22 Range/Units 13:22 10:37 10:37 RBC 2.80 L (4.30-5.90) m/uL Hgb 7.9 L (13.0-17.5) gm/dL Hct 25.2 L (39.0-53.0) % MCHC (31.0-37.0) g/dL RDW 19.3 H (11.5-15.5) % Plt Count 631 H (150-450) k/uL Metamyelocytes # (Man) 0.09 H (0) k/uL Nucleated RBCs 1 H (0-0) /100 WBC Chloride (98-107) mmol/L Creatinine 0.56 L (0.66-1.25) mg/dL POC Glucose (mg/dL) (70-110) mg/dL Calcium 8.0 L (8.4-10.2) mg/dL Magnesium (1.6-2.3) mg/dL Iron 43 L (65-175) ug/dL TIBC 148 L (228-460) ug/dL Transferrin 106.0 L (204.0-354.0) mg/dL Ferritin 1555.0 H (22.0-322.0) ng/mL Total Protein 6.1 L (6.3-8.2) g/dL Albumin 2.6 L (3.5-5.0) g/dL Crossmatch See Detail 05/08/22 05/08/22 05/08/22 Range/Units 11:54 16:55 20:17 RBC (4.30-5.90) m/uL Hgb (13.0-17.5) gm/dL Hct (39.0-53.0) % MCHC (31.0-37.0) g/dL RDW (11.5-15.5) % Plt Count (150-450) k/uL Metamyelocytes # (Man) (0) k/uL Nucleated RBCs (0-0) /100 WBC Chloride (98-107) mmol/L Creatinine (0.66-1.25) mg/dL POC Glucose (mg/dL) 145 H 147 H 135 H (70-110) mg/dL Calcium (8.4-10.2) mg/dL Magnesium (1.6-2.3) mg/dL Iron (65-175) ug/dL TIBC (228-460) ug/dL Transferrin (204.0-354.0) mg/dL Ferritin (22.0-322.0) ng/mL Total Protein (6.3-8.2) g/dL Albumin (3.5-5.0) g/dL Crossmatch 05/09/22 05/09/22 Range/Units 07:11 07:11 RBC 2.72 L (4.30-5.90) m/uL Hgb 7.6 L (13.0-17.5) gm/dL Hct 24.7 L (39.0-53.0) % MCHC 30.6 L (31.0-37.0) g/dL RDW 19.3 H (11.5-15.5) % Plt Count 588 H (150-450) k/uL Metamyelocytes # (Man) (0) k/uL Nucleated RBCs (0-0) /100 WBC Chloride 109 H (98-107) mmol/L Creatinine 0.53 L (0.66-1.25) mg/dL POC Glucose (mg/dL) (70-110) mg/dL Calcium 8.0 L (8.4-10.2) mg/dL Magnesium 1.5 L (1.6-2.3) mg/dL Iron (65-175) ug/dL TIBC (228-460) ug/dL Transferrin (204.0-354.0) mg/dL Ferritin (22.0-322.0) ng/mL Total Protein 6.0 L (6.3-8.2) g/dL Albumin 2.6 L (3.5-5.0) g/dL Crossmatch Assessment and Plan Plan: Assessment: 1. Status post simultaneous kidney and pancreas transplant in 1997 and she was tearful is constant. GFR at baseline. 2. Chronic left foot osteomyelitis status post left BKA 05/06/2022. 3. Hypertension with chronic kidney disease. Stable. 4. Urinary retention. Garcia catheter inserted 05/07/2022. On Flomax. 5. Anemia. Postoperative blood loss. Iron replete. 6. Hypomagnesemia from poor intake, diuretic, and Prograf-induced renal losses. Plan: Maintain IV fluids. Continue to hold diuretics. Trial of void in the next 1-2 days. Encourage oral intake. Maintain prednisone and Prograf. Continue to hold CellCept for now. Follow-up Prograf level. Magnesium being replaced.
[2022-05-09 10:55] LABS: Eosinophils # (M) 0.08 k/uL (0-0.7); Lymphocytes # (M) 2.11 k/uL (1.0-4.8); Monocytes # (M) 0.86 k/uL (0-1.0); Neutrophils # (M) 4.76 k/uL (1.3-7.7); Neutrophils % (M) 61 %; Nucleated Red Blood Cells 0 /100 WBC (0-0); Total Cells Counted 100
--- NOTE | 2022-05-09 11:37 | P.PN ---
Subjective Progress Note Date: 05/09/22 Principal diagnosis: Chronic osteomyelitis left foot, Charcot foot Patient seen and examined today as a follow-up. He is postop day #3 for left below the knee amputation. Dressing has not been changed since surgery. He states his pain is being well managed. Morning labs show hemoglobin of 7.6, magnesium 1.5. Patient's been afebrile. Nephrology is following patient closel y as well as primary medicine team. Objective - Vital Signs Vital signs: Vital Signs Temp 97.8 F 05/09/22 04:00 Pulse 69 05/09/22 04:00 Resp 18 05/09/22 04:00 BP 133/69 05/09/22 04:00 Pulse Ox 93 L 05/09/22 04:00 FiO2 Intake & Output 05/08/22 05/09/22 05/09/22 18:59 06:59 18:59 Intake Total 118 Output Total 750 300 Balance -750 -300 118 Intake: Oral 118 Output: Urine 750 300 Other: Voiding Method Indwelling Catheter Indwelling Catheter - Exam General appearance: The patient is alert, oriented, appears in no acute d istress. HET: Head is normocephalic and atraumatic. Neck: Supple without lymphadenopathy. Trachea midline. Heart: Regular. Lungs: Equal expansion, normal respiratory effort. Abdomen: Soft, nontender, nondistended. Extremities: Normal skin color and turgor. Lower extremity BKA site well approximated with vanessa. Skin around incision is warm and pink. No drainage noted. Neurological: No focal deficits. Strength and sensation are grossly intact. - Labs CBC & Chem 7: 05/09/22 07:11 05/09/22 07:11 Labs: Abnormal Lab Results - Last 24 Hours (Table) 05/06/22 05/08/22 05/08/22 Range/Units 13:22 10:37 10:37 RBC 2.80 L (4.30-5.90) m/uL Hgb 7.9 L (13.0-17.5) gm/dL Hct 25.2 L (39.0-53.0) % MCHC (31.0-37.0) g/dL RDW 19.3 H (11.5-15.5) % Plt Count 631 H (150-450) k/uL Metamyelocytes # (Man) 0.09 H (0) k/uL Nucleated RBCs 1 H (0-0) /100 WBC Chloride (98-107) mmol/L Creatinine 0.56 L (0.66-1.25) mg/dL POC Glucose (mg/dL) (70-110) mg/dL Calcium 8.0 L (8.4-10.2) mg/dL Magnesium (1.6-2.3) mg/dL Iron 43 L (65-175) ug/dL TIBC 148 L (228-460) ug/dL Transferrin 106.0 L (204.0-354.0) mg/dL Ferritin 1555.0 H (22.0-322.0) ng/mL Total Protein 6.1 L (6.3-8.2) g/dL Albumin 2.6 L (3.5-5.0) g/dL Crossmatch See Detail 05/08/22 05/08/22 05/08/22 Range/Units 11:54 16:55 20:17 RBC (4.30-5.90) m/uL Hgb (13.0-17.5) gm/dL Hct (39.0-53.0) % MCHC (31.0-37.0) g/dL RDW (11.5-15.5) % Plt Count (150-450) k/uL Metamyelocytes # (Man) (0) k/uL Nucleated RBCs (0-0) /100 WBC Chloride (98-107) mmol/L Creatinine (0.66-1.25) mg/dL POC Glucose (mg/dL) 145 H 147 H 135 H (70-110) mg/dL Calcium (8.4-10.2) mg/dL Magnesium (1.6-2.3) mg/dL Iron (65-175) ug/dL TIBC (228-460) ug/dL Transferrin (204.0-354.0) mg/dL Ferritin (22.0-322.0) ng/mL Total Protein (6.3-8.2) g/dL Albumin (3.5-5.0) g/dL Crossmatch 05/09/22 05/09/22 Range/Units 07:11 07:11 RBC 2.72 L (4.30-5.90) m/uL Hgb 7.6 L (13.0-17.5) gm/dL Hct 24.7 L (39.0-53.0) % MCHC 30.6 L (31.0-37.0) g/dL RDW 19.3 H (11.5-15.5) % Plt Count 588 H (150-450) k/uL Metamyelocytes # (Man) (0) k/uL Nucleated RBCs (0-0) /100 WBC Chloride 109 H (98-107) mmol/L Creatinine 0.53 L (0.66-1.25) mg/dL POC Glucose (mg/dL) (70-110) mg/dL Calcium 8.0 L (8.4-10.2) mg/dL Magnesium 1.5 L (1.6-2.3) mg/dL Iron (65-175) ug/dL TIBC (228-460) ug/dL Transferrin (204.0-354.0) mg/dL Ferritin (22.0-322.0) ng/mL Total Protein 6.0 L (6.3-8.2) g/dL Albumin 2.6 L (3.5-5.0) g/dL Crossmatch Assessment and Plan Assessment: 1. Postop day #3 for left below the knee amputation 2. Chronic osteomyelitis 3. Left Charcot foot 4. History of renal transplant. Plan: 1. Continue supportive care 2. Continue pain management 3. Daily dressing change to left BKA then when necessary 4. Stump certified art therapist and rigid dressing order placed in chart 5. Physical therapy consulted 6. Case management consulted to reach to comfort prosthetics for stump certified art therapist and rigid dressing 7. Continue with recommendations from nephrology. 8. Continue medical management per primary medicine team Anticipate discharge in the next 24-48 hours The impression and plan of care has been dictated as directed. I performed a history and examination of this patient, discussed the same with the dictator. I agree with the dictator's note ,documented as a scribe. Any additional findings or plans will be noted.
[2022-05-09 12:11] LABS: Glucose,Whole Blood 159 mg/dL (70-110)
--- NOTE | 2022-05-09 13:38 | P.PN ---
Subjective Patient seen and examined at bedside. Patient denies chest pain shortness of breath. Patient denies fever chills nausea vomiting. Hemoglobin this morning is fairly stable. Objective - Vital Signs Vital signs: Vital Signs Temp 98.4 F 05/09/22 12:00 Pulse 60 05/09/22 12:00 Resp 18 05/09/22 12:00 BP 140/70 05/09/22 12:00 Pulse Ox 97 05/09/22 12:00 FiO2 Intake & Output 05/08/22 05/09/22 05/09/22 18:59 06:59 18:59 Intake Total 118 Output Total 750 300 400 Balance -750 -300 -282 Intake: Oral 118 Output: Urine 750 300 400 Other: Voiding Method Indwelling Catheter Indwelling Catheter Indwelling Catheter - Exam General: [non toxic], [no distress], [appears at stated age] Derm: [warm], [dry] Head: [atraumatic], [normocephalic], [symmetric] Eyes: [EOMI], [no lid lag], [anicteric sclera] Mouth: [no lip lesion], [mucus membranes moist] Cardiovascular: [S1S2 reg], [no murmur], [positive posterior tibial pulse bilateral], Lungs: [CTA bilateral], [no rhonchi, no rales] , [no accessory muscle use] Abdominal: [soft], [ nontender to palpation], [no guarding], [no appreciable organomegaly] Ext: [no gross muscle atrophy], [no edema], [no contractures] Neuro: [ CN II-XI grossly intact], [no focal neuro deficits] Psych: [Alert], [oriented], [appropriate affect] - Labs CBC & Chem 7: 05/09/22 07:11 05/09/22 07:11 Labs: Abnormal Lab Results - Last 24 Hours (Table) 05/06/22 05/08/22 05/08/22 Range/Units 13:22 10:37 16:55 RBC (4.30-5.90) m/uL Hgb (13.0-17.5) gm/dL Hct (39.0-53.0) % MCHC (31.0-37.0) g/dL RDW (11.5-15.5) % Plt Count (150-450) k/uL Chloride (98-107) mmol/L Creatinine (0.66-1.25) mg/dL POC Glucose (mg/dL) 147 H (70-110) mg/dL Calcium (8.4-10.2) mg/dL Magnesium (1.6-2.3) mg/dL Iron 43 L (65-175) ug/dL TIBC 148 L (228-460) ug/dL Transferrin 106.0 L (204.0-354.0) mg/dL Ferritin 1555.0 H (22.0-322.0) ng/mL Total Protein (6.3-8.2) g/dL Albumin (3.5-5.0) g/dL Crossmatch See Detail 05/08/22 05/09/22 05/09/22 Range/Units 20:17 07:11 07:11 RBC 2.72 L (4.30-5.90) m/uL Hgb 7.6 L (13.0-17.5) gm/dL Hct 24.7 L (39.0-53.0) % MCHC 30.6 L (31.0-37.0) g/dL RDW 19.3 H (11.5-15.5) % Plt Count 588 H (150-450) k/uL Chloride 109 H (98-107) mmol/L Creatinine 0.53 L (0.66-1.25) mg/dL POC Glucose (mg/dL) 135 H (70-110) mg/dL Calcium 8.0 L (8.4-10.2) mg/dL Magnesium 1.5 L (1.6-2.3) mg/dL Iron (65-175) ug/dL TIBC (228-460) ug/dL Transferrin (204.0-354.0) mg/dL Ferritin (22.0-322.0) ng/mL Total Protein 6.0 L (6.3-8.2) g/dL Albumin 2.6 L (3.5-5.0) g/dL Crossmatch 05/09/22 Range/Units 12:01 RBC (4.30-5.90) m/uL Hgb (13.0-17.5) gm/dL Hct (39.0-53.0) % MCHC (31.0-37.0) g/dL RDW (11.5-15.5) % Plt Count (150-450) k/uL Chloride (98-107) mmol/L Creatinine (0.66-1.25) mg/dL POC Glucose (mg/dL) 159 H (70-110) mg/dL Calcium (8.4-10.2) mg/dL Magnesium (1.6-2.3) mg/dL Iron (65-175) ug/dL TIBC (228-460) ug/dL Transferrin (204.0-354.0) mg/dL Ferritin (22.0-322.0) ng/mL Total Protein (6.3-8.2) g/dL Albumin (3.5-5.0) g/dL Crossmatch Assessment and Plan Assessment: charcot arthropathy , 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 Hb is fairly stable at 7.6 prior was 7.9 No signs of bleeding at this time ESRD s/p kidney and pancreas transplant nephrology following DM with complications insulin sliding scale afib May resume Eliquis if approved by surgery . resume coreg cardiac monitoring hyperlipidemia resume lovastatin hypertension resume coreg nifidipine on hold due to borderline BP , if stabilize by AM, then continue verify if patient takes hydralazin full code DVT PPX per primary team follow up hemoglobin closely
[2022-05-09 14:06] LABS: Anisocytosis Slight; Basophils % (A) 0 %; Eosinophils # (A) 0.1 k/uL (0-0.7); Eosinophils % (A) 1 %; HCT 26.3 % (39.0-53.0); HGB 8.1 gm/dL (13.0-17.5); Hypochromasia Marked; Lymphocytes # (A) 0.8 k/uL (1.0-4.8); Lymphocytes % (A) 9 %; MCH 28.7 pg (25.0-35.0); MCV 92.5 fL (80.0-100.0); Macrocytosis Slight; Mean Platelet Volume 7.5; Monocytes # (A) 0.5 k/uL (0-1.0); Monocytes % (A) 6 %; Neutrophils # (A) 7.3 k/uL (1.3-7.7); Neutrophils % (A) 80 %; Platelet Count 662 k/uL (150-450); RBC 2.84 m/uL (4.30-5.90); RDW 19.4 % (11.5-15.5)
[2022-05-09 16:54] LABS: Glucose,Whole Blood 258 mg/dL (70-110)
[2022-05-09] MEDS: TAMSULOSIN 0.4 MG CAP.ER.24H PO SCH (17:18)
[2022-05-09] MEDS: MULTIVITAMINS, THERA 1 EACH TAB PO SCH (17:18)
[2022-05-09 19:59] LABS: Glucose,Whole Blood 155 mg/dL (70-110)
[2022-05-09] MEDS: MELATONIN 3 MG TABLET PO SCH (21:52)
[2022-05-09] MEDS: GABAPENTIN 300 MG CAP PO SCH (21:52)
[2022-05-09] MEDS: ATORVASTATIN 10 MG TAB PO SCH (21:53)
[2022-05-09] MEDS: LATANOPROST 0.005% OPHTH DROPS 2.5 ML BTL RIGHT EYE SCH (21:54)
[2022-05-10] MEDS: TACROLIMUS 1 MG CAP PO SCH ×3 (00:17→21:01)
[2022-05-10] MEDS: SODIUM CHLORIDE 0.9% 1,000 ML IV SCH ×3 (00:18→18:29)
[2022-05-10 06:21] LABS: Glucose,Whole Blood 102 mg/dL (70-110)
[2022-05-10] MEDS: LACTATED RINGERS 1,000 ML IV SCH (06:22)
[2022-05-10] MEDS: INSULIN ASPART (NovoLOG) 100 UNIT/ML VIAL SQ SCH ×4 (06:23→21:00)
[2022-05-10] MEDS: carvediloL 6.25 MG TAB PO SCH ×2 (06:25→17:07)
[2022-05-10] MEDS: CALCIUM CARB-VIT D 500 MG-5 MCG TAB PO SCH ×2 (06:25→17:07)
[2022-05-10 08:12] LABS: Anisocytosis Slight; HCT 27.4 % (39.0-53.0); HGB 8.9 gm/dL (13.0-17.5); Hypochromasia Marked; MCH 30.3 pg (25.0-35.0); MCHC 32.4 g/dL (31.0-37.0); MCV 93.6 fL (80.0-100.0); Platelet Count 553 k/uL (150-450); RBC 2.93 m/uL (4.30-5.90); RDW 18.3 % (11.5-15.5); WBC 8.7 k/uL (3.8-10.6)
[2022-05-10 08:33] LABS: African American GFR (CKD) >90 (>60 ml/min/1.73 sqM); Anion Gap 1 mmol/L; Blood Urea Nitrogen 8 mg/dL (9-20); Calcium 7.1 mg/dL (8.4-10.2); Carbon Dioxide 26 mmol/L (22-30); Chloride 113 mmol/L (98-107); Glucose 91 mg/dL (74-99); Magnesium 1.6 mg/dL (1.6-2.3); Non-African American GFR(CKD) >90 (>60 ml/min/1.73 sqM); Potassium 3.6 mmol/L (3.5-5.1); Sodium 140 mmol/L (137-145)
[2022-05-10] MEDS: MAGNESIUM OXIDE 400 MG TAB PO SCH ×2 (09:33→20:56)
[2022-05-10] MEDS: FOLIC ACID 1 MG TAB PO SCH (09:33)
[2022-05-10] MEDS: LACTOBACILLUS ACIDOPH & BULGAR 1 EACH PACKET PO SCH ×2 (09:33→20:57)
[2022-05-10] MEDS: hydrALAZINE HCL 25 MG TAB PO SCH ×3 (09:34→20:56)
[2022-05-10] MEDS: CHOLECALCIFEROL 25 MCG (1000 IU) TABLET PO SCH (09:34)
[2022-05-10] MEDS: DORZOLAMIDE HCL 2% DROPS 10 ML BTL LEFT EYE SCH ×2 (09:34→20:57)
[2022-05-10] MEDS: TIMOLOL 0.5% OPHTH DROPS 5 ML BTL BOTH EYES SCH ×2 (09:35→20:58)
[2022-05-10] MEDS: predniSONE 10 MG TAB PO SCH (09:35)
[2022-05-10] MEDS: BRIMONIDINE TARTRATE 0.2% DROPS 5 ML BTL BOTH EYES SCH ×2 (09:35→20:57)
[2022-05-10] MEDS: MULTIVITAMINS, THERA 1 EACH TAB PO SCH (09:35)
[2022-05-10] MEDS ORDERED: POTASSIUM CHLORIDE ER 20 MEQ TAB.ER PO STA (10:58)
--- NOTE | 2022-05-10 11:01 | P.PN ---
Subjective Patient is seen in follow-up for renal transplant management. Oral intake fair. Garcia catheter inserted 05/07/2022 due to urinary retention remove this morning - . Denies chest pain or shortness of breath. Receiving IV fluids. No active complaints. GFR at baseline. Vital signs stable. General: NAD. HEENT: Head exam is unremarkable. LUNGS: Breath sounds decreased. HEART: Rate and Rhythm are regular. ABDOMEN: Soft, no distention. EXTREMITITES: Left BKA. No edema. Objective - Vital Signs Vital signs: Vital Signs Temp 97.7 F 05/10/22 09:32 Pulse 67 05/10/22 09:32 Resp 16 05/10/22 09:32 BP 119/56 05/10/22 09:32 Pulse Ox 96 05/10/22 09:32 FiO2 Intake & Output 05/09/22 05/10/22 05/10/22 18:59 06:59 18:59 Intake Total 718 277 120 Output Total 750 1000 Balance -32 -723 120 Intake: Oral 718 120 Blood Product 0 277 Rc Pheresis As3 Unit 0 277 [id number] Output: Urine 750 1000 Other: Voiding Method Indwelling Catheter Indwelling Catheter Indwelling Catheter - Labs CBC & Chem 7: 05/10/22 07:50 05/10/22 07:50 Labs: Abnormal Lab Results - Last 24 Hours (Table) 05/06/22 05/09/22 05/09/22 Range/Units 13:22 12:01 13:53 RBC 2.84 L (4.30-5.90) m/uL Hgb 8.1 L (13.0-17.5) gm/dL Hct 26.3 L (39.0-53.0) % RDW 19.4 H (11.5-15.5) % Plt Count 662 H (150-450) k/uL Lymphocytes # 0.8 L (1.0-4.8) k/uL Chloride (98-107) mmol/L BUN (9-20) mg/dL Creatinine (0.66-1.25) mg/dL POC Glucose (mg/dL) 159 H (70-110) mg/dL Calcium (8.4-10.2) mg/dL Crossmatch See Detail 05/09/22 05/09/22 05/10/22 Range/Units 16:44 19:58 07:50 RBC 2.93 L (4.30-5.90) m/uL Hgb 8.9 L (13.0-17.5) gm/dL Hct 27.4 L (39.0-53.0) % RDW 18.3 H (11.5-15.5) % Plt Count 553 H (150-450) k/uL Lymphocytes # (1.0-4.8) k/uL Chloride (98-107) mmol/L BUN (9-20) mg/dL Creatinine (0.66-1.25) mg/dL POC Glucose (mg/dL) 258 H 155 H (70-110) mg/dL Calcium (8.4-10.2) mg/dL Crossmatch 05/10/22 Range/Units 07:50 RBC (4.30-5.90) m/uL Hgb (13.0-17.5) gm/dL Hct (39.0-53.0) % RDW (11.5-15.5) % Plt Count (150-450) k/uL Lymphocytes # (1.0-4.8) k/uL Chloride 113 H (98-107) mmol/L BUN 8 L (9-20) mg/dL Creatinine 0.44 L (0.66-1.25) mg/dL POC Glucose (mg/dL) (70-110) mg/dL Calcium 7.1 L (8.4-10.2) mg/dL Crossmatch Assessment and Plan Plan: Assessment: 1. Status post simultaneous kidney and pancreas transplant in 1997 and she was tearful is constant. GFR at baseline. 2. Chronic left foot osteomyelitis status post left BKA 05/06/2022. 3. Hypertension with chronic kidney disease. Stable. 4. Urinary retention. Garcia catheter inserted 05/07/2022 - removed this morning. On Flomax. 5. Anemia. Postoperative blood loss. Iron replete. Hemoglobin better. 6. Hypomagnesemia from poor intake, diuretic, and Prograf-induced renal losses. Plan: Maintain IV fluids. Continue to hold diuretics. Encourage oral intake. Maintain prednisone and Prograf. Continue to hold CellCept for now. Follow-up Prograf level. Replace magnesium and potassium.
[2022-05-10] MEDS: MAGNESIUM SULFATE-D5W PMX 1 GM in DEXTROSE/WATER 1 100ML.BAG IVPB SCH ×2 (11:30→13:39)
[2022-05-10] MEDS: APIXABAN 5 MG TAB PO SCH ×2 (11:30→20:56)
[2022-05-10 11:54] LABS: Glucose,Whole Blood 107 mg/dL (70-110)
--- NOTE | 2022-05-10 12:15 | P.PN ---
Subjective Progress Note Date: 05/10/22 Principal diagnosis: Chronic osteomyelitis left foot, Charcot foot Should seen and examined today as a follow-up. His postop day #4 for left below the knee amputation. Pain is being well managed. He worked with physical therapy yesterday and was able to get up and pivot to chair. Hemoglobin stable today at 8.9, this is status post 1 unit of blood transfusion. Magnesium 1.6, will replace per protocol. His been afebrile. Objective - Vital Signs Vital signs: Vital Signs Temp 97.8 F 05/10/22 11:32 Pulse 80 05/10/22 11:32 Resp 18 05/10/22 11:32 BP 129/55 05/10/22 11:32 Pulse Ox 95 05/10/22 11:32 FiO2 Intake & Output 05/09/22 05/10/22 05/10/22 18:59 06:59 18:59 Intake Total 718 277 120 Output Total 750 1000 Balance -32 -723 120 Intake: Oral 718 120 Blood Product 0 277 Rc Pheresis As3 Unit 0 277 [id number] Output: Urine 750 1000 Other: Voiding Method Indwelling Catheter Indwelling Catheter Indwelling Catheter - Exam General appearance: The patient is alert, oriented, appears in no acute distress. HET: Head is normocephalic and atraumatic. Neck: Supple without lymphadenopathy. Trachea midline. Heart: Regular. Lungs: Equal expansion, normal respiratory effort. Abdomen: Soft, nontender, nondistended. Extremities: Normal skin color and turgor. Lower extremity BKA site well approximated with vanessa. Neurological: No focal deficits. Strength and sensation are grossly intact. - Labs CBC & Chem 7: 05/10/22 07:50 05/10/22 07:50 Labs: Abnormal Lab Results - Last 24 Hours (Table) 05/06/22 05/09/22 05/09/22 Range/Units 13:22 12:01 13:53 RBC 2.84 L (4.30-5.90) m/uL Hgb 8.1 L (13.0-17.5) gm/dL Hct 26.3 L (39.0-53.0) % RDW 19.4 H (11.5-15.5) % Plt Count 662 H (150-450) k/uL Lymphocytes # 0.8 L (1.0-4.8) k/uL Chloride (98-107) mmol/L BUN (9-20) mg/dL Creatinine (0.66-1.25) mg/dL POC Glucose (mg/dL) 159 H (70-110) mg/dL Calcium (8.4-10.2) mg/dL Crossmatch See Detail 05/09/22 05/09/22 05/10/22 Range/Units 16:44 19:58 07:50 RBC 2.93 L (4.30-5.90) m/uL Hgb 8.9 L (13.0-17.5) gm/dL Hct 27.4 L (39.0-53.0) % RDW 18.3 H (11.5-15.5) % Plt Count 553 H (150-450) k/uL Lymphocytes # (1.0-4.8) k/uL Chloride (98-107) mmol/L BUN (9-20) mg/dL Creatinine (0.66-1.25) mg/dL POC Glucose (mg/dL) 258 H 155 H (70-110) mg/dL Calcium (8.4-10.2) mg/dL Crossmatch 05/10/22 Range/Units 07:50 RBC (4.30-5.90) m/uL Hgb (13.0-17.5) gm/dL Hct (39.0-53.0) % RDW (11.5-15.5) % Plt Count (150-450) k/uL Lymphocytes # (1.0-4.8) k/uL Chloride 113 H (98-107) mmol/L BUN 8 L (9-20) mg/dL Creatinine 0.44 L (0.66-1.25) mg/dL POC Glucose (mg/dL) (70-110) mg/dL Calcium 7.1 L (8.4-10.2) mg/dL Crossmatch Assessment and Plan Assessment: 1. Postop day #4 for left below the knee amputation 2. Chronic osteomyelitis 3. Left Charcot foot 4. History of renal transplant 5. Anemia Plan: 1. Continue supportive care 2. Continue pain management 3. Daily dressing change to left BKA then when necessary 4. Stump executive vice president and rigid dressing per comfort prosthetics 5. Physical therapy on consult 6. Resume Eliquis 7. Continue with recommendations from nephrology. 8. Continue medical management per primary medicine team Anticipate discharge tomorrow. The impression and plan of care has been dictated as directed. I performed a history and examination of this patient, discussed the same with the dictator. I agree with the dictator's note ,documented as a scribe. Any additional findings or plans will be noted.
[2022-05-10 16:59] LABS: Glucose,Whole Blood 139 mg/dL (70-110)
[2022-05-10] MEDS: HYDROcodone/APAP 5-325MG 1 EACH TAB PO PRN ×2 (17:07→20:56)
[2022-05-10] MEDS: TAMSULOSIN 0.4 MG CAP.ER.24H PO SCH (17:07)
--- NOTE | 2022-05-10 17:26 | P.PN ---
Subjective Progress Note Date: 05/10/22 (delayed charting seen at 0945) Patient is a 61-year-old male for history of atrial fibrillation not, status post renal and pancreatic transplant in 1997 secondary to diabetes and end-stage renal disease on CellCept, tacrolimus, and prednisone who presented for scheduled left BKA due to chronic osteomyelitis and nonhealing fracture. Patient seen and examined at bedside. His pain is well controlled. He is feeling much better overall. He denies any chest pain, shortness of breath, nausea, vomiting. Last BM was 2 days ago. General: nontoxic, no distress, appears at stated age Derm: warm, dry, left lower extremity with dressing in place Head: atraumatic, normocephalic, symmetric Eyes: EOMI, no lid lag, anicteric sclera Mouth: no lip lesion, mucus membranes moist Cardiovascular: S1S2 reg, no murmur, Lungs: CTA bilateral, no rhonchi, no rales , no accessory muscle use Abdominal: soft, nontender to palpation, no guarding, no appreciable organomegaly Ext: no gross muscle atrophy, no edema, no contractures Neuro: CN II-XI grossly intact, no focal neuro deficits Psych: Alert, oriented, appropriate affect Assessment/plan: Chronic osteomyelitis of the left foot, charcot arthropathy , chronic wounds on left foot, with non healing fracture, s/p LBKA POD one - management per primary team acute post op anemia , asymptomatic improved - CBC review and HgB stable, recheck in AM s/p kidney and pancreas transplant, on immunosupression - d/w Dr. Shane and vascular surgery - restart cellcept 500 mg BID on on 05/14/22, transitione prednisone to 5mg on 05/14/21, continue tacro - f/u nephrology in 2 weeks. afib - eliquis resumed 05/10/22, check CBC in AM - conitnue with coreg hyperlipidemia - statin hypertension - controlled - conitnue current medications full code DVT PPX per primary team - anticipate to SNF in AM, auth approved and [facility] is ready to accpet patient back. Active Medications Generic Name Dose Route Start Last Admin Trade Name Freq PRN Reason Stop Dose Admin Hydrocodone Bitart/Acetaminophen 1 each 05/06/22 16:48 05/10/22 17:07 Hydrocodone/Apap 5-325mg 1 Each Tab PO 1 each Q4HR PRN Administration Pain Scale 6 to 7 Apixaban 5 mg 05/10/22 11:00 05/10/22 11:30 Apixaban 5 Mg Tab PO 5 mg BID MARYLIN Administration Protocol Atorvastatin Calcium 10 mg 05/07/22 21:00 05/09/22 21:53 Atorvastatin 10 Mg Tab PO 10 mg HS MARYLIN Administration Brimonidine Tartrate 1 drops 05/07/22 21:00 05/10/22 09:35 Brimonidine Tartrate 0.2% Drops 5 Ml Btl BOTH EYES 1 drops BID MARYLIN Administration Calcium Carbonate 1 each 05/07/22 17:30 05/10/22 17:07 Calcium Carb-Vit D 500 Mg-5 Mcg Tab PO 1 each BID-W/MEALS MARYLIN Administration Carvedilol 6.25 mg 05/07/22 07:30 05/10/22 17:07 Carvedilol 6.25 Mg Tab PO 6.25 mg BID-W/MEALS MARYLIN Administration Cholecalciferol 25 mcg 05/07/22 15:45 05/10/22 09:34 Cholecalciferol 25 Mcg (1000 Iu) Tablet PO 25 mcg DAILY MARYLIN Administration Dorzolamide HCl 1 drops 05/07/22 21:00 05/10/22 09:34 Dorzolamide Hcl 2% Drops 10 Ml Btl LEFT EYE 1 drops BID MARYLIN Administration Folic Acid 1 mg 05/07/22 15:45 05/10/22 09:33 Folic Acid 1 Mg Tab PO 1 mg DAILY MARYLIN Administration Gabapentin 300 mg 05/07/22 21:00 05/09/22 21:52 Gabapentin 300 Mg Cap PO 300 mg HS [facility] Administration Hydralazine HCl 10 mg 05/07/22 10:44 05/07/22 13:02 Hydralazine Hcl 20 Mg/Ml 1 Ml Vial IVP 10 mg Q6HR PRN Administration Blood Pressure - High Hydralazine HCl 25 mg 05/07/22 16:00 05/10/22 17:07 Hydralazine Hcl 25 Mg Tab PO 25 mg TID MARYLIN Administration Lactated Ringer's 1,000 mls @ 20 mls/hr 05/06/22 05:55 05/10/22 06:22 Lactated Ringers IV Not Given .Q24H [facility] Sodium Chloride 1,000 mls @ 75 mls/hr 05/07/22 10:00 05/10/22 06:21 Saline 0.9% IV 75 mls/hr .[id number] MARYLIN Administration Insulin Aspart 0 unit 05/07/22 07:30 05/10/22 17:01 Insulin Aspart (Novolog) 100 Unit/Ml Vial SQ Not Given ACHS [facility] Protocol Lactobacillus Acidoph/Bulgaricus 1 each 05/07/22 21:00 05/10/22 09:33 Lactobacillus Acidoph & Bulgar 1 Each Packet PO 1 each BID MARYLIN Administration Latanoprost 1 drops 05/07/22 21:00 05/09/22 21:54 Latanoprost 0.005% Ophth Drops 2.5 Ml Btl RIGHT EYE 1 drops HS MARYLIN Administration Lidocaine HCl 0.1 ml 05/06/22 05:55 Lidocaine 1% (10mg/Ml) For Iv Start INTRADERMA PER PROTOCOL PRN IV Start Magnesium Oxide 400 mg 05/10/22 21:00 Magnesium Oxide 400 Mg Tab PO BID MARYLIN Melatonin 3 mg 05/08/22 22:00 05/09/22 21:52 Melatonin 3 Mg Tablet PO 3 mg HS MARYLIN Administration Miscellaneous Information 1 each 05/09/22 08:04 Magnesium Replacement Protocol 1 Each Misc MISCELLANE DAILY PRN Per Protocol Protocol Morphine Sulfate 4 mg 05/06/22 16:48 05/09/22 08:34 Morphine Sulfate 4 Mg/Ml Syringe IVP 4 mg Q2HR PRN Administration Severe Pain (Scale 7 to 10) Multivitamins 1 each 05/07/22 15:45 05/10/22 09:35 Multivitamins, Thera 1 Each Tab PO 1 each DAILY MARYLIN Administration Nifedipine 60 mg 05/07/22 09:00 05/10/22 09:33 Nifedipine Xl 60 Mg Tab.Er.24 PO 60 mg BID MARYLIN Administration Ondansetron HCl 4 mg 05/07/22 15:29 Ondansetron Odt 4 Mg Tab PO Q8HR PRN Nausea Prednisone 10 mg 05/07/22 09:00 05/10/22 09:35 Prednisone 10 Mg Tab PO 10 mg DAILY MARYLIN Administration Promethazine HCl 25 mg 05/07/22 15:37 Promethazine 25 Mg Tab PO Q6HR PRN Nausea Senna 8.6 mg 05/10/22 17:30 Sennosides 8.6 Mg Tab PO DAILY MARYILN Tacrolimus 1 mg 05/07/22 09:00 05/10/22 09:33 Tacrolimus 1 Mg Cap PO 1 mg BID MARYLIN Administration Tamsulosin HCl 0.4 mg 05/08/22 18:30 05/10/22 17:07 Tamsulosin 0.4 Mg Cap.Er.24h PO 0.4 mg PC-SUPPER MARYLIN Administration Timolol Maleate 1 drops 05/07/22 21:00 05/10/22 09:35 Timolol 0.5% Ophth Drops 5 Ml Btl BOTH EYES 1 drops BID MARYLIN Administration Objective - Vital Signs Vital signs: Vital Signs Temp 97.8 F 05/10/22 17:09 Pulse 74 05/10/22 17:09 Resp 14 05/10/22 17:09 BP 124/64 05/10/22 17:09 Pulse Ox 98 05/10/22 17:09 FiO2 Intake & Output 05/09/22 05/10/22 05/10/22 18:59 06:59 18:59 Intake Total 718 277 480 Output Total 750 1000 600 Balance -32 -723 -120 Intake: Oral 718 480 Blood Product 0 277 Rc Pheresis As3 Unit 0 277 [id number] Output: Urine 750 1000 400 Post Void Residual 200 Other: Voiding Method Indwelling Catheter Indwelling Catheter Indwelling Catheter # Voids 0 - Labs CBC & Chem 7: 05/10/22 07:50 05/10/22 07:50 Labs: Abnormal Lab Results - Last 24 Hours (Table) 05/06/22 05/09/22 05/10/22 Range/Units 13:22 19:58 07:50 RBC 2.93 L (4.30-5.90) m/uL Hgb 8.9 L (13.0-17.5) gm/dL Hct 27.4 L (39.0-53.0) % RDW 18.3 H (11.5-15.5) % Plt Count 553 H (150-450) k/uL Chloride (98-107) mmol/L BUN (9-20) mg/dL Creatinine (0.66-1.25) mg/dL POC Glucose (mg/dL) 155 H (70-110) mg/dL Calcium (8.4-10.2) mg/dL Crossmatch See Detail 05/10/22 05/10/22 Range/Units 07:50 16:43 RBC (4.30-5.90) m/uL Hgb (13.0-17.5) gm/dL Hct (39.0-53.0) % RDW (11.5-15.5) % Plt Count (150-450) k/uL Chloride 113 H (98-107) mmol/L BUN 8 L (9-20) mg/dL Creatinine 0.44 L (0.66-1.25) mg/dL POC Glucose (mg/dL) 139 H (70-110) mg/dL Calcium 7.1 L (8.4-10.2) mg/dL Crossmatch
[2022-05-10] MEDS: SENNOSIDES 8.6 MG TAB PO SCH (18:28)
[2022-05-10 20:01] LABS: Glucose,Whole Blood 161 mg/dL (70-110)
[2022-05-10] MEDS: ATORVASTATIN 10 MG TAB PO SCH (20:56)
[2022-05-10] MEDS: GABAPENTIN 300 MG CAP PO SCH (20:56)
[2022-05-10] MEDS: MELATONIN 3 MG TABLET PO SCH (20:56)
[2022-05-10] MEDS: LATANOPROST 0.005% OPHTH DROPS 2.5 ML BTL RIGHT EYE SCH (20:57)
[2022-05-11 01:25] VITALS: TEMP 98
[2022-05-11 06:11] LABS: Glucose,Whole Blood 84 mg/dL (70-110)
[2022-05-11] MEDS: LACTATED RINGERS 1,000 ML IV SCH (06:41)
[2022-05-11] MEDS: SODIUM CHLORIDE 0.9% 1,000 ML IV SCH (06:42)
[2022-05-11] MEDS: INSULIN ASPART (NovoLOG) 100 UNIT/ML VIAL SQ SCH ×2 (06:42→13:14)
[2022-05-11] MEDS: CALCIUM CARB-VIT D 500 MG-5 MCG TAB PO SCH (06:43)
[2022-05-11] MEDS: carvediloL 6.25 MG TAB PO SCH (06:43)
[2022-05-11 08:28] LABS: Anisocytosis Slight; HCT 30.3 % (39.0-53.0); HGB 9.4 gm/dL (13.0-17.5); Hypochromasia Slight; MCHC 31.1 g/dL (31.0-37.0); MCV 93.5 fL (80.0-100.0); Macrocytosis Slight; Mean Platelet Volume 7.4; Platelet Count 570 k/uL (150-450); RBC 3.24 m/uL (4.30-5.90); RDW 19.8 % (11.5-15.5); WBC 8.6 k/uL (3.8-10.6)
[2022-05-11] MEDS: HYDROcodone/APAP 5-325MG 1 EACH TAB PO PRN (08:57)
[2022-05-11] MEDS: LACTOBACILLUS ACIDOPH & BULGAR 1 EACH PACKET PO SCH (08:57)
[2022-05-11] MEDS: MAGNESIUM OXIDE 400 MG TAB PO SCH (08:57)
[2022-05-11] MEDS: APIXABAN 5 MG TAB PO SCH (08:58)
[2022-05-11] MEDS: CHOLECALCIFEROL 25 MCG (1000 IU) TABLET PO SCH (08:58)
[2022-05-11] MEDS: TACROLIMUS 1 MG CAP PO SCH (08:58)
[2022-05-11] MEDS: predniSONE 10 MG TAB PO SCH (08:58)
[2022-05-11] MEDS: hydrALAZINE HCL 25 MG TAB PO SCH (08:58)
[2022-05-11] MEDS: SENNOSIDES 8.6 MG TAB PO SCH (08:58)
[2022-05-11] MEDS: FOLIC ACID 1 MG TAB PO SCH (08:58)
[2022-05-11] MEDS: MULTIVITAMINS, THERA 1 EACH TAB PO SCH (08:58)
[2022-05-11] MEDS: TIMOLOL 0.5% OPHTH DROPS 5 ML BTL BOTH EYES SCH (08:58)
[2022-05-11] MEDS: BRIMONIDINE TARTRATE 0.2% DROPS 5 ML BTL BOTH EYES SCH (08:59)
[2022-05-11] MEDS: DORZOLAMIDE HCL 2% DROPS 10 ML BTL LEFT EYE SCH (08:59)
--- NOTE | 2022-05-11 09:41 | P.DS ---
Providers Date of admission: 05/06/22 12:21 Expected date of discharge: 05/11/22 Attending physician: Tiffanie Garcia DO Consults: 05/06/22 16:48 Consult Physician Routine Consulting Provider: Rosy Lino Consult Reason/Comments: med mgmnt, transplant, s/p bka Do you want consulting provider notified?: Yes Primary care physician: Devon Brand MD Hospital Course: 61-year-old male who had come in on 05/06/2022 for scheduled left lower extremity below the knee amputation for chronic left lower extremity abnormalities along with chronic osteomyelitis. He is postop day #5. He has been afebrile, he has worked well with physical therapy. Pain has been well- controlled. [employer] prost[employer] has come by and patient has stump export agent in place. Eliquis was resumed yesterday. Patient did have acute blood loss anemia with 1 unit of blood given during this admission as well as hypomagnesemia which has been replaced. Repeat hemoglobin today at 9.4 and magnesium at 2.0. Nephrology has been following patient closely regarding chronic kidney disease and previous kidney and pancreas transplant. He had urinary retention during this hospitalization and a indwelling Garcia catheter had been placed which was discontinued yesterday. He is on Flomax, urine output has been good. Plan is for discharge today to [facility]. Exam: General appearance: The patient is alert, oriented, appears in no acute distress. HET: Head is normocephalic and atraumatic. Neck: Supple. Abdomen: Soft, nontender, nondistended. Extremities: Normal skin color and turgor. Left lower extremity below the knee amputation stump with vanessa well approximated with surrounding pink warm tissue. Minimal serosanguineous drainage. Stump export agent in place. Neurological: No focal deficits. Alert and oriented 3. The impression and plan of care has been dictated as directed. I performed a history and examination of this patient, discussed the same with the dictator. I agree with the dictator's note ,documented as a scribe. Any additional findings or plans will be noted. Procedures: PREOPERATIVE DIAGNOSIS: Left lower extremity Charcot foot, chronic osteomyelitis, tibial fibular fracture, immunosuppression. POSTOPERATIVE DIAGNOSIS: Same. OPERATION: Left below knee amputation. SURGEON: Tiffanie Garcia DO Patient Condition at Discharge: Stable Plan - Discharge Summary New Discharge Prescriptions: New Tamsulosin [Flomax] 0.4 mg PO PC-SUPPER cap Melatonin 3 mg PO HS tab Calcium Carb-Vit D 500Mg-5Mcg [Oscal 500+D 5 Mcg (200 Iu)] 1 each PO BID- W/MEALS tab Continue Dorzolamide 2% [Trusopt 2%] 1 drop LEFT EYE BID carvediloL [Coreg] 6.25 mg PO BID Brimonidine Tartrate/Timolol [Combigan 0.2%-0.5% Eye Drops] 1 drop BOTH EYES BID Cholecalciferol [Vitamin D3 (25 Mcg = 1000 Iu)] 25 mcg PO DAILY Tacrolimus [Prograf] 1 mg PO BID Magnesium Oxide [Mag-Ox] 400 mg PO DAILY Ondansetron Odt [Zofran ODT] 4 mg PO Q8HR PRN PRN Reason: Nausea predniSONE 10 mg PO DAILY tab Multivitamins, Thera [Multivitamin (formulary)] 1 tab PO DAILY Lactobacillus Acidophilus [Acidophilus] 1 each PO BID Gabapentin 300 mg PO HS #3 cap NIFEdipine XL [Procardia XL] 60 mg PO BID hydrALAZINE HCL [Apresoline] 25 mg PO TID tab Folic Acid 1 mg PO DAILY Apixaban [Eliquis] 5 mg PO BID #60 tab Lovastatin [Mevacor] 20 mg PO HS Furosemide [Lasix] 40 mg PO DAILY #60 tab Latanoprost [Latanoprost 0.005%] 1 drop RIGHT EYE HS Lindy-Tussin Dm Syrup 1 dose PO Q12HR PRN PRN Reason: Cough HYDROcodone/APAP 5-325MG [Bridgman 5-325] 1 each PO Q4HR PRN #12 tab PRN Reason: Moderate Pain (Scale 4 To 6) mycophenolate mofetiL [Cellcept] 500 mg PO BID #0 Discontinued Sodium Bicarbonate Tab 650 mg PO BID tab Sodium Polystyrene Sulfonate [Kayexalate] 15 gm PO Q14D No Action Aspirin 81 mg PO DAILY Discharge Medication List Aspirin 81 mg PO DAILY 09/27/13 [History] Dorzolamide 2% [Trusopt 2%] 1 drop LEFT EYE BID 12/02/14 [History] carvediloL [Coreg] 6.25 mg PO BID 02/15/18 [History] Brimonidine Tartrate/Timolol [Combigan 0.2%-0.5% Eye Drops] 1 drop BOTH EYES BID 11/25/21 [History] NIFEdipine XL [Procardia XL] 60 mg PO BID 11/25/21 [History] hydrALAZINE HCL [Apresoline] 25 mg PO TID tab 01/19/22 [Rx] Cholecalciferol [Vitamin D3 (25 Mcg = 1000 Iu)] 25 mcg PO DAILY 02/21/22 [History] Folic Acid 1 mg PO DAILY 02/21/22 [History] Apixaban [Eliquis] 5 mg PO BID #60 tab 02/27/22 [Rx] Lovastatin [Mevacor] 20 mg PO HS 04/13/22 [History] Magnesium Oxide [Mag-Ox] 400 mg PO DAILY 04/13/22 [History] Tacrolimus [Prograf] 1 mg PO BID 04/13/22 [History] Ondansetron Odt [Zofran ODT] 4 mg PO Q8HR PRN 04/16/22 [History] Furosemide [Lasix] 40 mg PO DAILY #60 tab 04/26/22 [Rx] predniSONE 10 mg PO DAILY tab 04/29/22 [Rx] Lindy-Tussin Dm Syrup 1 dose PO Q12HR PRN 05/05/22 [History] Lactobacillus Acidophilus [Acidophilus] 1 each PO BID 05/05/22 [History] Latanoprost [Latanoprost 0.005%] 1 drop RIGHT EYE HS 05/05/22 [History] Multivitamins, Thera [Multivitamin (formulary)] 1 tab PO DAILY 05/05/22 [History] Calcium Carb-Vit D 500Mg-5Mcg [Oscal 500+D 5 Mcg (200 Iu)] 1 each PO BID-W/MEALS tab 05/10/22 [Rx] Gabapentin 300 mg PO HS #3 cap 05/10/22 [Rx] HYDROcodone/APAP 5-325MG [Bridgman 5-325] 1 each PO Q4HR PRN #12 tab 05/10/22 [Rx] Melatonin 3 mg PO HS tab 05/10/22 [Rx] Tamsulosin [Flomax] 0.4 mg PO PC-SUPPER cap 05/10/22 [Rx] mycophenolate mofetiL [Cellcept] 500 mg PO BID #0 05/10/22 [Rx] Follow up Appointment(s)/Referral(s): Ashli An MD [Family Provider] - 2 Weeks Tiffanie Garcia DO [STAFF PHYSICIAN] - 1 Week Patient Instructions/Handouts: Below the Knee Amputation (DC) Activity/Diet/Wound Care/Special Instructions: Activity as tolerated, continue to work with physical therapy May shower, no tub bathing or soaking. Adaptic and Kerlix to left BKA stump until stump export agent and rigid dressing per comfort prosthetics arrives Medication changes: On 05/14/22 start Cell Cept 500 mg PO twice daily, Prednisone 5 mg PO daily on 05/14/22 stop prednisone 10 mg Discharge Disposition: TRANSFER TO SNF/ECF
[2022-05-11 10:35] VITALS: RESP 18
[2022-05-11 11:56] LABS: Glucose,Whole Blood 121 mg/dL (70-110)
--- NOTE | 2022-05-11 12:04 | P.PN ---
Subjective Patient is seen in follow-up for renal transplant management. Oral intake fair. Garcia catheter inserted 05/07/2022 due to urinary retention and was removed 05/10/2022. Has been voiding. Denies chest pain or shortness of breath. Receiving IV fluids. No active complaints. GFR at baseline. Vital signs stable. General: NAD. HEENT: Head exam is unremarkable. LUNGS: Breath sounds decreased. HEART: Rate and Rhythm are regular. ABDOMEN: Soft, no distention. EXTREMITITES: Left BKA. No edema. Objective - Vital Signs Vital signs: Vital Signs Temp 98.0 F 05/11/22 08:00 Pulse 70 05/11/22 08:00 Resp 18 05/11/22 08:00 BP 145/65 05/11/22 08:00 Pulse Ox 97 05/11/22 08:00 FiO2 Intake & Output 05/10/22 05/11/22 05/11/22 18:59 06:59 18:59 Intake Total 480 0 Output Total 600 775 Balance -120 -775 0 Intake: Oral 480 0 Output: Urine 400 775 Post Void Residual 200 Other: Voiding Method Indwelling Catheter Indwelling Catheter # Voids 0 2 - Labs CBC & Chem 7: 05/11/22 07:54 05/10/22 07:50 Labs: Abnormal Lab Results - Last 24 Hours (Table) 05/10/22 05/10/22 05/11/22 Range/Units 16:43 20:00 07:54 RBC 3.24 L (4.30-5.90) m/uL Hgb 9.4 L (13.0-17.5) gm/dL Hct 30.3 L (39.0-53.0) % RDW 19.8 H (11.5-15.5) % Plt Count 570 H (150-450) k/uL POC Glucose (mg/dL) 139 H 161 H (70-110) mg/dL 05/11/22 Range/Units 11:41 RBC (4.30-5.90) m/uL Hgb (13.0-17.5) gm/dL Hct (39.0-53.0) % RDW (11.5-15.5) % Plt Count (150-450) k/uL POC Glucose (mg/dL) 121 H (70-110) mg/dL Assessment and Plan Plan: Assessment: 1. Status post simultaneous kidney and pancreas transplant in 1997 and she was tearful is constant. GFR at baseline. 2. Chronic left foot osteomyelitis status post left BKA 05/06/2022. 3. Hypertension with chronic kidney disease. Stable. 4. Urinary retention. Garcia catheter inserted 05/07/2022 - removed 05/10/2022. On Flomax. 5. Anemia. Postoperative blood loss. Iron replete. Hemoglobin better. 6. Hypomagnesemia from poor intake, diuretic, and Prograf-induced renal losses. Plan: Hep-Lock IV fluids. Continue to hold diuretics. Encouraged oral intake. Maintain prednisone and Prograf. Continue to hold CellCept for now. Prograf level 14.7 - decrease dose to 1.5 mg daily and repeat another level. Magnesium and potassium replaced. CellCept can be resumed 1 week post surgery and prednisone can be decreased back to 5 mg once daily then.
--- NOTE | 2022-05-11 12:23 | P.PN ---
Subjective Progress Note Date: 05/11/22 (delayed charting seen at 0945) Patient is a 61-year-old male for history of atrial fibrillation not, status post renal and pancreatic transplant in 1997 secondary to diabetes and end-stage renal disease on CellCept, tacrolimus, and prednisone who presented for scheduled left BKA due to chronic osteomyelitis and nonhealing fracture. Patient seen and examined at bedside. He is doing well, pain is well controlled, no complaints. General: nontoxic, no distress, appears at stated age Derm: warm, dry, left lower extremity with brace in place Head: atraumatic, normocephalic, symmetric Eyes: EOMI, no lid lag, anicteric sclera Mouth: no lip lesion, mucus membranes moist Cardiovascular: S1S2 reg, no murmur, Lungs: CTA bilateral, no rhonchi, no rales , no accessory muscle use Abdominal: soft, nontender to palpation, no guarding, no appreciable organomegaly Ext: no gross muscle atrophy, no edema, no contractures Neuro: CN II-XI grossly intact, no focal neuro deficits Psych: Alert, oriented, appropriate affect Assessment/plan: Chronic osteomyelitis of the left foot, charcot arthropathy , chronic wounds on left foot, with non healing fracture, s/p LBKA POD one - management per primary team acute post op anemia , asymptomatic improved - CBC review and HgB stable s/p kidney and pancreas transplant, on immunosupression - d/w Dr. Shane and vascular surgery - restart cellcept 500 mg BID on on 05/14/22, transition prednisone to 5mg on 05/14/21, continue tacro - f/u nephrology in 2 weeks. afib - eliquis resumed 05/10/22- HgB stable - continue with coreg hyperlipidemia - statin hypertension - controlled - continue current medications full code DVT PPX per primary team - medially optimized for discharge. Discharge medication rec addressed and above antirejection medication orders were added. Active Medications Generic Name Dose Route Start Last Admin Trade Name Freq PRN Reason Stop Dose Admin Hydrocodone Bitart/Acetaminophen 1 each 05/06/22 16:48 05/11/22 08:57 Hydrocodone/Apap 5-325mg 1 Each Tab PO 1 each Q4HR PRN Administration Pain Scale 6 to 7 Apixaban 5 mg 05/10/22 11:00 05/11/22 08:58 Apixaban 5 Mg Tab PO 5 mg BID MARYLIN Administration Protocol Atorvastatin Calcium 10 mg 05/07/22 21:00 05/10/22 20:56 Atorvastatin 10 Mg Tab PO 10 mg HS MARYLIN Administration Brimonidine Tartrate 1 drops 05/07/22 21:00 05/11/22 08:59 Brimonidine Tartrate 0.2% Drops 5 Ml Btl BOTH EYES 1 drops BID MARYLIN Administration Calcium Carbonate 1 each 05/07/22 17:30 05/11/22 06:43 Calcium Carb-Vit D 500 Mg-5 Mcg Tab PO 1 each BID-W/MEALS MARYLIN Administration Carvedilol 6.25 mg 05/07/22 07:30 05/11/22 06:43 Carvedilol 6.25 Mg Tab PO 6.25 mg BID-W/MEALS MARYLIN Administration Cholecalciferol 25 mcg 05/07/22 15:45 05/11/22 08:58 Cholecalciferol 25 Mcg (1000 Iu) Tablet PO 25 mcg DAILY MARYLIN Administration Dorzolamide HCl 1 drops 05/07/22 21:00 05/11/22 08:59 Dorzolamide Hcl 2% Drops 10 Ml Btl LEFT EYE 1 drops BID MARYLIN Administration Folic Acid 1 mg 05/07/22 15:45 05/11/22 08:58 Folic Acid 1 Mg Tab PO 1 mg DAILY MARYLIN Administration Gabapentin 300 mg 05/07/22 21:00 05/10/22 20:56 Gabapentin 300 Mg Cap PO 300 mg HS MARYLIN Administration Hydralazine HCl 10 mg 05/07/22 10:44 05/07/22 13:02 Hydralazine Hcl 20 Mg/Ml 1 Ml Vial IVP 10 mg Q6HR PRN Administration Blood Pressure - High Hydralazine HCl 25 mg 05/07/22 16:00 05/11/22 08:58 Hydralazine Hcl 25 Mg Tab PO 25 mg TID MARYLIN Administration Lactated Ringer's 1,000 mls @ 20 mls/hr 05/06/22 05:55 05/11/22 06:41 Lactated Ringers IV Not Given .Q24H [facility] Insulin Aspart 0 unit 05/07/22 07:30 05/11/22 06:42 Insulin Aspart (Novolog) 100 Unit/Ml Vial SQ Not Given ACHS [facility] Protocol Lactobacillus Acidoph/Bulgaricus 1 each 05/07/22 21:00 05/11/22 08:57 Lactobacillus Acidoph & Bulgar 1 Each Packet PO 1 each BID MARYLIN Administration Latanoprost 1 drops 05/07/22 21:00 05/10/22 20:57 Latanoprost 0.005% Ophth Drops 2.5 Ml Btl RIGHT EYE 1 drops HS MARYLIN Administration Lidocaine HCl 0.1 ml 05/06/22 05:55 Lidocaine 1% (10mg/Ml) For Iv Start INTRADERMA PER PROTOCOL PRN IV Start Magnesium Oxide 400 mg 05/10/22 21:00 05/11/22 08:57 Magnesium Oxide 400 Mg Tab PO 400 mg BID M[facility]LIN Administration Melatonin 3 mg 05/08/22 22:00 05/10/22 20:56 Melatonin 3 Mg Tablet PO 3 mg HS MARYLIN Administration Miscellaneous Information 1 each 05/09/22 08:04 Magnesium Replacement Protocol 1 Each Misc MISCELLANE DAILY PRN Per Protocol Protocol Morphine Sulfate 4 mg 05/06/22 16:48 05/09/22 08:34 Morphine Sulfate 4 Mg/Ml Syringe IVP 4 mg Q2HR PRN Administration Severe Pain (Scale 7 to 10) Multivitamins 1 each 05/07/22 15:45 05/11/22 08:58 Multivitamins, Thera 1 Each Tab PO 1 each DAILY M[facility]LIN Administration Nifedipine 60 mg 05/07/22 09:00 05/11/22 08:57 Nifedipine Xl 60 Mg Tab.Er.24 PO 60 mg BID M[facility]LIN Administration Ondansetron HCl 4 mg 05/07/22 15:29 Ondansetron Odt 4 Mg Tab PO Q8HR PRN Nausea Prednisone 10 mg 05/07/22 09:00 05/11/22 08:58 Prednisone 10 Mg Tab PO 10 mg DAILY M[facility]LIN Administration Promethazine HCl 25 mg 05/07/22 15:37 Promethazine 25 Mg Tab PO Q6HR PRN Nausea Senna 8.6 mg 05/10/22 17:30 05/11/22 08:58 Sennosides 8.6 Mg Tab PO 8.6 mg DAILY M[facility]LIN Administration Tacrolimus 0.5 mg 05/11/22 21:00 Tacrolimus 0.5 Mg Cap PO HS MARYLIN Tacrolimus 1 mg 05/12/22 09:00 Tacrolimus 1 Mg Cap PO DAILY MARYLIN Tamsulosin HCl 0.4 mg 05/08/22 18:30 05/10/22 17:07 Tamsulosin 0.4 Mg Cap.Er.24h PO 0.4 mg PC-SUPPER MARYLIN Administration Timolol Maleate 1 drops 05/07/22 21:00 05/11/22 08:58 Timolol 0.5% Ophth Drops 5 Ml Btl BOTH EYES 1 drops BID MARYLIN Administration Objective - Vital Signs Vital signs: Vital Signs Temp 98.0 F 05/11/22 08:00 Pulse 70 05/11/22 08:00 Resp 18 05/11/22 08:00 BP 145/65 05/11/22 08:00 Pulse Ox 97 05/11/22 08:00 FiO2 Intake & Output 05/10/22 05/11/22 05/11/22 18:59 06:59 18:59 Intake Total 480 0 Output Total 600 775 700 Balance -120 -125 -700 Intake: Oral 480 0 Output: Urine 400 775 700 Post Void Residual 200 Other: Voiding Method Indwelling Catheter Indwelling Catheter # Voids 0 2 - Labs CBC & Chem 7: 05/11/22 07:54 05/10/22 07:50 Labs: Abnormal Lab Results - Last 24 Hours (Table) 05/10/22 05/10/22 05/11/22 Range/Units 16:43 20:00 07:54 RBC 3.24 L (4.30-5.90) m/uL Hgb 9.4 L (13.0-17.5) gm/dL Hct 30.3 L (39.0-53.0) % RDW 19.8 H (11.5-15.5) % Plt Count 570 H (150-450) k/uL POC Glucose (mg/dL) 139 H 161 H (70-110) mg/dL 05/11/22 Range/Units 11:41 RBC (4.30-5.90) m/uL Hgb (13.0-17.5) gm/dL Hct (39.0-53.0) % RDW (11.5-15.5) % Plt Count (150-450) k/uL POC Glucose (mg/dL) 121 H (70-110) mg/dL
[2022-05-11 12:54] VITALS: BP 126/57; PULSE 67
[2022-05-11] MEDS ORDERED: TACROLIMUS 0.5 MG CAP PO SCH (21:00)
[2022-05-12] MEDS ORDERED: TACROLIMUS 1 MG CAP PO SCH (09:00)
== END 2022-05-11 15:27 | DRG 617 ==
LOC: 2ORMAIN 12:21 → 3SCARD 16:35
PROVIDERS: ADMIT Surgery; ATTEND Surgery
PROC: 0Y6J0Z2 Detachment at Left Lower Leg, Mid, Open Approach (ICD-10-PCS; principal; 2022-05-06 13:45)
PROC: 30233N1 Transfusion of Nonautologous Red Blood Cells into Peripheral Vein, Percutaneous Approach (ICD-10-PCS; 2022-05-09)
DX: E11.69 Type 2 diabetes mellitus with other specified complication (principal); D62 Acute posthemorrhagic anemia; M86.672 Other chronic osteomyelitis, left ankle and foot; Z94.0 Kidney transplant status; Z94.83 Pancreas transplant status; E11.51 Type 2 diabetes mellitus with diabetic peripheral angiopathy without gangrene; S91.302A Unspecified open wound, left foot, initial encounter; I73.9 Peripheral vascular disease, unspecified; E11.22 Type 2 diabetes mellitus with diabetic chronic kidney disease; E78.5 Hyperlipidemia, unspecified; I50.9 Heart failure, unspecified; I11.0 Hypertensive heart disease with heart failure; S82.202G Unspecified fracture of shaft of left tibia, subsequent encounter for closed fracture with delayed healing; S82.402G Unspecified fracture of shaft of left fibula, subsequent encounter for closed fracture with delayed healing; E11.610 Type 2 diabetes mellitus with diabetic neuropathic arthropathy; I48.91 Unspecified atrial fibrillation; E83.42 Hypomagnesemia; Z85.828 Personal history of other malignant neoplasm of skin; Z86.14 Personal history of Methicillin resistant Staphylococcus aureus infection; Z79.01 Long term (current) use of anticoagulants; Z79.4 Long term (current) use of insulin; Z79.82 Long term (current) use of aspirin; Z79.899 Other long term (current) drug therapy; Z87.891 Personal history of nicotine dependence; Z79.52 Long term (current) use of systemic steroids
CPT/HCPCS: 80048; 80053; 80197; 82728; 83540; 83550; 83735; 85025; 85027; 85610; 85730; 86850; 86900; 86901; 86920

== ENCOUNTER → 2022-10-13 | Outpatient (CLI) | payer MEDICARE, OTHER ==
[2022-10-13 09:57] LABS: Creatinine,Urine Random 157.3 mg/dL; Protein/Creatinine Ratio,Urine 0.083
[2022-10-13 16:23] LABS: Basophils # (A) 0.11 X 10*3/uL (0.00-0.10); Eosinophils # (A) 0.68 X 10*3/uL (0.04-0.35); Eosinophils % (A) 5.9 %; HCT 44.1 % (39.6-50.0); HGB 14.2 d/dL (12.0-15.0); Lymphocytes # (A) 2.31 X 10*3/uL (0.90-5.00); MCH 30.5 pg (27.0-32.0); MCHC 32.2 d/dL (32.0-37.0); MCV 94.8 FL (80.0-97.0); Mean Platelet Volume 9.6 FL (9.5-12.2); Monocytes # (A) 1.08 X 10*3/uL (0.20-1.00); Monocytes % (A) 9.3 %; NRBC Per 100 WBC 0 X 10*3/uL (0.00-0.01); Neutrophils # (A) 7.33 X 10*3/uL (1.80-7.70); Neutrophils % (A) 63.4 %; Platelet Count 388 X 10*3/uL (140-440); RBC 4.65 X 10*6/uL (4.40-5.60); RDW 15.2 % (11.5-14.5); WBC 11.56 X 10*3/uL (4.50-10.00)
[2022-10-13 16:48] LABS: Amylase 62 U/L (23-121); Chol/HDL Ratio 2.24 Ratio; GGT 16 U/L (0-73); LDL Cholesterol,Calculated 66.5 mg/dL (0.0-131.0); VLDL Calculation 18.78 mg/dL (5.00-40.00)
[2022-10-13 16:49] LABS: Magnesium 2.4 mg/dL (1.5-2.4); Phosphorus 2.5 mg/dL (2.4-5.1); Uric Acid 6.7 mg/dL (3.7-8.7)
[2022-10-13 17:35] LABS: Appearance,Urine Cloudy (Clear); Bilirubin,Urine Negative (Negative); Blood,Urine Negative (Negative); Color,Urine Yellow (Yellow); Ketones,Urine Negative (Negative); Nitrite,Urine Negative (Negative); Specific Gravity,Urine 1.021 (1.001-1.030); Urobilinogen,Urine 0.2 E.U./DL
[2022-10-13 17:43] LABS: Bacteria,Urine None Seen (None Seen)
[2022-10-13 21:44] LABS: C-Peptide 2.25 ng/mL (0.81-3.85)
[2022-10-13 22:49] LABS: ALT 17 U/L (10-49); AST 54 U/L (14-35); Alkaline Phosphatase 92 U/L (41-126); Bilirubin, Conjugated <0.20 mg/dL (0.20-0.40); Bilirubin,Unconjugated >0.40 mg/dL (0.20-1.00); Calcium 9.3 mg/dL (8.7-10.3); Carbon Dioxide 24.3 mmol/L (21.6-31.8); Chloride 103 mmol/L (96-109); Glucose 109 mg/dL (70-110); Potassium 4.6 mmol/L (3.5-5.5); Sodium 142 mmol/L (135-145); Total Bilirubin 0.6 mg/dL (0.3-1.2); Total Protein 7.1 d/dL (6.2-8.2)
== END | disposition home or self-care (01) ==
LOC: LABWHC1 07:59
PROVIDERS: ATTEND Physical Medicine & Rehabilitation
DX: Z51.81 Encounter for therapeutic drug level monitoring (principal); Z11.59 Encounter for screening for other viral diseases; E10.29 Type 1 diabetes mellitus with other diabetic kidney complication; N18.30 Chronic kidney disease, stage 3 unspecified; E55.9 Vitamin D deficiency, unspecified; Z79.52 Long term (current) use of systemic steroids; Z94.0 Kidney transplant status; Z94.83 Pancreas transplant status; Z79.899 Other long term (current) drug therapy
CPT/HCPCS: 36415; 80051; 80061; 81001; 82150; 82248; 82306; 82310; 82565; 82570; 82947; 82977; 83036; 83735; 84075; 84100; 84155; 84156; 84450; 84460; 84520; 84550; 84681; 85025; 87086